=== PATIENT | female | born 1965 | race Caucasian/White ===

== ENCOUNTER 2017-02-10 10:10 | Inpatient (IN) | payer MEDICARE, MEDICAID ==
[~2017-02-10] VITALS: Ht 165.1 cm; Wt 63.5 kg
[2017-02-10] MEDS ORDERED: DOCUSATE SODIU100 MG ORAL (10:31)
[2017-02-10] MEDS ORDERED: IBUPROFEN600 MG ORAL (10:31)
[2017-02-10] MEDS ORDERED: RESTORIL15 MG ORAL (10:31)
[2017-02-10] MEDS ORDERED: ATIVAN1 MG ORAL (10:31)
[2017-02-10] MEDS ORDERED: PROTONIX40 MG ORAL (10:31)
[2017-02-10] MEDS ORDERED: ABILIFY10 MG ORAL (10:31)
[2017-02-10] MEDS ORDERED: SEROQUEL100 MG ORAL (10:31)
[2017-02-10] MEDS ORDERED: PROPRANOLOL HCL10 MG ORAL (10:31)
[2017-02-10] MEDS ORDERED: DEPAKOTE ER500 MG ORAL (10:31)
--- NOTE | 2017-02-10 10:42 | Emergency Room Report ---
History of Present Illness General Chief Complaint: Abnormal Labs Source: Medical Record, EMS Present Illness HPI 51YOF sent by PMD from [facility] For "abnormal labs," elevated ammonia level. Patient non-contributory to HPI No other family members present All info from paperwork from [facility] PMHx: Bipolar, schizoaffective, HTN, COPD, OA, liver cirrhosis, normocytic anemia, GERD Ammonia level was 209 on 02/07 Allergies: Coded Allergies: PENICILLINS (Verified Allergy, Unknown, 02/10/17) Patient History Limited by: medical condition Past Medical History: other - see HPI Past Surgical History: unable to obtain Pertinent Family History: unable to obtain Now: No Immunizations: UTD Reviewed Nursing Documentation: PMH: Agreed, PSxH: Agreed Nursing Documentation-PMH Past Medical History: No History, Except For Hx Hypertension: Yes Hx COPD: Yes History Of Psychiatric Problem: Yes - schizophrenia Review of Systems All Other Systems: limited - unable to obtain d/t AMS Physical Exam Vital Signs Date Time Temp Pulse Resp B/P Pulse Ox O2 Delivery O2 Flow Rate FiO2 02/10/17 10:10 98.4 80 18 136/76 95 Nasal Cannula 4.0 Sp02 EP Interpretation: reviewed, normal General Appearance: normal inspection, well appearing, no apparent distress, non-toxic Head: normocephalic, atraumatic Eyes: bilateral eye EOMI, bilateral eye PERRL ENT: normal ENT inspection, hearing grossly normal, normal voice Neck: normal inspection, full range of motion, supple, no bony tend Respiratory: normal inspection, lungs clear, normal breath sounds, no respiratory distress, no retraction, no wheezing Cardiovascular #1: regular rate, rhythm, no edema Gastrointestinal: normal inspection, normal bowel sounds, non tender, soft, no guarding, no hernia Musculoskeletal: normal inspection, back normal, normal range of motion, Yana' s Sign negative Neurologic: normal inspection, alert, responsive, director learning and development III-XII nml as tested, motor strength/tone normal, speech normal Psychiatric: normal inspection, judgement/insight normal, mood/affect normal Skin: normal inspection, normal color, no rash Medical Decision Making Diagnostic Impression: Primary Impression: Encephalopathy Additional Impressions: Liver cirrhosis Qualified Codes: K74.60 - Unspecified cirrhosis of liver Altered mental state Qualified Codes: R41.82 - Altered mental status, unspecified UTI (urinary tract infection) Qualified Codes: N30.01 - Acute cystitis with hematuria ER Course AMS - Multifactorial causes - Ammonia level downtrending from 209 from at outside facility. Known liver cirrhosis. Lactulose given in ED - UA grossly infected - Abx given to treat infection.. Urine Cx pending. No SIRS or obvious sepsis. H&H stable. No leuks. CXR does not show PNA. Endorsed to Dr Busch for tele admission at 1201pm. EKG Diagnostic Results Rate: normal ST Segments: other - ST depressions in 2, 3, AVF, V5-6 ASA given to the pt in ED: No Rhythm Strip Diag. Results EP Interpretation: yes Rate: 84 Rhythm: NSR, no PVC's, no ectopy Chest X-Ray Diagnostic Results EP Interpretation: Yes Findings: no consolidation, no effusion, no pneumothorax, no acute cardiopulmonary disease Number of Views: 1 Last Vital Signs Date Time Temp Pulse Resp B/P Pulse Ox O2 Delivery O2 Flow Rate FiO2 02/10/17 10:10 98.4 80 18 136/76 95 Nasal Cannula 4.0 Status: improved Disposition: ADMITTED INPATIENT Condition: Serious PAU MOSLEY M.D. February 10, 2017 10:42
[2017-02-10 11:21] LABS: BASOPHILS % (AUTO) 0.5 % (0.0-2.0); EOSINOPHILS % (AUTO) 1.6 % (0.0-3.0); LYMPHOCYTES % (AUTO) 16.9 % (20.0-45.0); MEAN CORPUSCULAR HEMOGLOBIN 32.2 PG (27.0-31.0); MEAN CORPUSCULAR HGB CONC 32.6 G/DL (32.0-36.0); MEAN CORPUSCULAR VOLUME 99 FL (80-99); MEAN PLATELET VOLUME 6.6 FL (6.5-10.1); MONOCYTES % (AUTO) 7.6 % (1.0-10.0); NEUTROPHILS % (AUTO) 73.4 % (45.0-75.0); PLATELET COUNT 131 K/UL (150-450); RED BLOOD COUNT 4.03 M/UL (4.20-5.40); WHITE BLOOD COUNT 5.8 K/UL (4.8-10.8)
--- NOTE | 2017-02-10 11:24 | Diagnostic Imaging Report ---
Indication: Chest pain Technique: Single portable AP view of the chest. Findings: Comparison: None. Aortic arch mildly calcified. The bones and extra pulmonary soft tissues, remainder of the cardiomediastinal silhouette, pulmonary vasculature and parenchyma, and pleural surfaces are unremarkable. IMPRESSION: Aortosclerosis Otherwise negative portable AP chest.
[2017-02-10 11:25] LABS: APPEARANCE,URINE SLIGHTLY CLOUDY; KETONES,URINE NEGATIVE (NEGATIVE); LEUKOCYTE ESTERASE ,URINE 2+ (NEGATIVE); NITRITE,URINE POSITIVE (NEGATIVE); PH,URINE 6 (4.5-8.0); PROTEIN,URINE 2+ (NEGATIVE); UROBILINOGEN,URINE 8 MG/DL (0.0-1.0)
[2017-02-10 11:42] LABS: TROPONIN I < 0.30 ng/mL (<=0.30)
[2017-02-10 11:48] LABS: BACTERIA,URINE MODERATE /HPF; RBC,URINE TNTC /HPF (0 - 2); SQUAMOUS EPITHELIAL CELL,UR MODERATE /LPF (NONE/OCC); WBC,URINE 15-20 /HPF (0 - 2)
[2017-02-10 11:53] LABS: ICTOTEST NEGATIVE
[2017-02-10 11:54] VITALS: BP 128/79
[2017-02-10] MEDS ORDERED: Lactulose 20gm/30ml UDC ORAL ONE (12:00)
[2017-02-10] MEDS ORDERED: cefTRIAXone 1 GM in NS 55 ML IVPB ONE (12:00)
[2017-02-10 12:08] LABS: ALBUMIN/GLOBULIN RATIO 0.2 (1.0-2.7); CALCIUM 8.6 mg/dL (8.6-10.2); CREATININE 1.4 mg/dL (0.5-0.9); GLOMERULAR FILTRATION RATE 39.3 mL/min (>60); TOTAL PROTEIN 8.5 g/dL (6.6-8.7)
[2017-02-10] MEDS ORDERED: LORazepam Inj 2mg/ml 1ml IV PRN (12:30)
[2017-02-10] MEDS ORDERED: Mylanta II UD 30ml ORAL PRN (12:30)
[2017-02-10 12:31] LABS: POTASSIUM 4.4 mEQ/L (3.4-4.9)
--- NOTE | 2017-02-10 12:51 | Neurology Progress Note ---
Objective Physical Exam Last Vital Signs Date Time Temp Pulse Resp B/P Pulse Ox O2 Delivery O2 Flow Rate FiO2 02/10/17 11:54 84 18 128/79 94 Nasal Cannula 2.0 02/10/17 10:10 98.4 Laboratory Tests Test 02/10/17 10:55 02/10/17 11:10 White Blood Count 5.8 K/UL (4.8-10.8) Red Blood Count 4.03 M/UL (4.20-5.40) L Hemoglobin 13.0 G/DL (12.0-16.0) Hematocrit 39.7 % (37.0-47.0) Mean Corpuscular Volume 99 FL (80-99) Mean Corpuscular Hemoglobin 32.2 PG (27.0-31.0) H Mean Corpuscular Hemoglobin Concent 32.6 G/DL (32.0-36.0) Red Cell Distribution Width 16.0 % (11.6-14.8) H Platelet Count 131 K/UL (150-450) L Mean Platelet Volume 6.6 FL (6.5-10.1) Neutrophils (%) (Auto) 73.4 % (45.0-75.0) Lymphocytes (%) (Auto) 16.9 % (20.0-45.0) L Monocytes (%) (Auto) 7.6 % (1.0-10.0) Eosinophils (%) (Auto) 1.6 % (0.0-3.0) Basophils (%) (Auto) 0.5 % (0.0-2.0) Sodium Level 144 mEQ/L (135-145) Potassium Level 4.4 mEQ/L (3.4-4.9) Chloride Level 107 mEQ/L (98-107) Carbon Dioxide Level 18 mEQ/L (20-30) L Anion Gap 19 (5-15) H Blood Urea Nitrogen 49 mg/dL (7-23) H Creatinine 1.4 mg/dL (0.5-0.9) H Estimat Glomerular Filtration Rate 39.3 mL/min (>60) Glucose Level 255 mg/dL (74-106) H Calcium Level 8.6 mg/dL (8.6-10.2) Total Bilirubin 2.0 mg/dL (0.0-1.2) H Direct Bilirubin Pending Aspartate Amino Transf (AST/SGOT) 42 U/L (5-40) H Alanine Aminotransferase (ALT/SGPT) 17 U/L (3-33) Alkaline Phosphatase 150 U/L (35-104) H Ammonia 107 umol/L (11-51) H Troponin I < 0.30 ng/mL (<=0.30) Total Protein 8.5 g/dL (6.6-8.7) Albumin 1.8 g/dL (3.5-5.2) L Globulin 6.7 g/dL Albumin/Globulin Ratio 0.2 (1.0-2.7) L Lipase 12 U/L (< 60) Urine Color Brown Urine Appearance Slightly cloudy Urine pH 6 (4.5-8.0) Urine Specific [place] 1.020 (1.005-1.035) Urine Protein 2+ (NEGATIVE) H Urine Glucose (UA) Negative (NEGATIVE) Urine Ketones Negative (NEGATIVE) Urine Occult Blood 5+ (NEGATIVE) H Urine Nitrite Positive (NEGATIVE) H Urine Bilirubin 1+ (NEGATIVE) H Urine Ictotest Negative Urine Urobilinogen 8 MG/DL (0.0-1.0) H Urine Leukocyte Esterase 2+ (NEGATIVE) H Urine RBC Tntc /HPF (0 - 2) H Urine WBC 15-20 /HPF (0 - 2) H Urine Squamous Epithelial Cells Moderate /LPF (NONE/OCC) H Urine Bacteria Moderate /HPF (NONE) H Impression/Recommendations Problems: (1) Encephalopathy, multifactorial, hepatic/septic/renal (2) Liver cirrhosis (3) UTI (urinary tract infection) Status: unchanged Recommendations #[id number] JOHN PACHECO February 10, 2017 12:51
[2017-02-10 12:54] VITALS: BP 131/72
[2017-02-10 13:43] LABS: BILIRUBIN,DIRECT 0.7 mg/dL (0.1-0.3)
[2017-02-10] MEDS: Morphine Sulfate 2mg/ml Inj IVP PRN (14:32)
--- NOTE | 2017-02-10 14:49 | Infectious Diseases Prog Note ---
Assessment/Plan Problems: (1) UTI (urinary tract infection) Assessment & Plan: will send urine for culture , continue cefepime empirically for now (2) Encephalopathy, multifactorial, hepatic/septic/renal Assessment & Plan: with elevated ammonia level, continue lactulose, and antibiotics for UTI, neurology is consulted (3) Liver cirrhosis Assessment & Plan: continue supportive care, avoid hepatotoxic meds, consult GI Subjective Allergies: Coded Allergies: PENICILLINS (Verified Allergy, Unknown, 02/10/17) Objective Vital Signs Last 24 Hour Vital Signs Date Time Temp Pulse Resp B/P Pulse Ox O2 Delivery O2 Flow Rate FiO2 02/10/17 13:06 84 18 131/72 95 Nasal Cannula 2.0 02/10/17 12:54 84 18 131/72 95 Nasal Cannula 2.0 02/10/17 11:54 84 18 128/79 94 Nasal Cannula 2.0 02/10/17 10:10 98.4 80 18 136/76 95 Nasal Cannula 4.0 Height (Feet): 5 Height (Inches): 6.00 Weight (Pounds): 130 Laboratory Tests Test 02/10/17 10:55 02/10/17 11:10 White Blood Count 5.8 K/UL (4.8-10.8) Red Blood Count 4.03 M/UL (4.20-5.40) L Hemoglobin 13.0 G/DL (12.0-16.0) Hematocrit 39.7 % (37.0-47.0) Mean Corpuscular Volume 99 FL (80-99) Mean Corpuscular Hemoglobin 32.2 PG (27.0-31.0) H Mean Corpuscular Hemoglobin Concent 32.6 G/DL (32.0-36.0) Red Cell Distribution Width 16.0 % (11.6-14.8) H Platelet Count 131 K/UL (150-450) L Mean Platelet Volume 6.6 FL (6.5-10.1) Neutrophils (%) (Auto) 73.4 % (45.0-75.0) Lymphocytes (%) (Auto) 16.9 % (20.0-45.0) L Monocytes (%) (Auto) 7.6 % (1.0-10.0) Eosinophils (%) (Auto) 1.6 % (0.0-3.0) Basophils (%) (Auto) 0.5 % (0.0-2.0) Sodium Level 144 mEQ/L (135-145) Potassium Level 4.4 mEQ/L (3.4-4.9) Chloride Level 107 mEQ/L (98-107) Carbon Dioxide Level 18 mEQ/L (20-30) L Anion Gap 19 (5-15) H Blood Urea Nitrogen 49 mg/dL (7-23) H Creatinine 1.4 mg/dL (0.5-0.9) H Estimat Glomerular Filtration Rate 39.3 mL/min (>60) Glucose Level 255 mg/dL (74-106) H Calcium Level 8.6 mg/dL (8.6-10.2) Total Bilirubin 2.0 mg/dL (0.0-1.2) H Direct Bilirubin 0.7 mg/dL (0.1-0.3) H Aspartate Amino Transf (AST/SGOT) 42 U/L (5-40) H Alanine Aminotransferase (ALT/SGPT) 17 U/L (3-33) Alkaline Phosphatase 150 U/L (35-104) H Ammonia 107 umol/L (11-51) H Troponin I < 0.30 ng/mL (<=0.30) Total Protein 8.5 g/dL (6.6-8.7) Albumin 1.8 g/dL (3.5-5.2) L Globulin 6.7 g/dL Albumin/Globulin Ratio 0.2 (1.0-2.7) L Lipase 12 U/L (< 60) Urine Color Brown Urine Appearance Slightly cloudy Urine pH 6 (4.5-8.0) Urine Specific [place] 1.020 (1.005-1.035) Urine Protein 2+ (NEGATIVE) H Urine Glucose (UA) Negative (NEGATIVE) Urine Ketones Negative (NEGATIVE) Urine Occult Blood 5+ (NEGATIVE) H Urine Nitrite Positive (NEGATIVE) H Urine Bilirubin 1+ (NEGATIVE) H Urine Ictotest Negative Urine Urobilinogen 8 MG/DL (0.0-1.0) H Urine Leukocyte Esterase 2+ (NEGATIVE) H Urine RBC Tntc /HPF (0 - 2) H Urine WBC 15-20 /HPF (0 - 2) H Urine Squamous Epithelial Cells Moderate /LPF (NONE/OCC) H Urine Bacteria Moderate /HPF (NONE) H Current Medications Medications (Trade) Dose Ordered Sig/Gill Route PRN Reason Start Time Stop Time Status Last Admin Dose Admin Acetaminophen (Tylenol) 650 mg Q4H PRN ORAL T>100.5 02/10/17 12:30 03/12/17 12:29 Al Hydroxide/Mg Hydroxide (Mylanta II) 30 ml Q6H PRN ORAL dyspepsia 02/10/17 12:30 03/12/17 12:29 Cefepime HCl/ Dextrose (Maxipime/D5W) 55 ml @ 110 mls/hr Q24H IV 02/10/17 15:00 02/17/17 14:59 Dextrose (Dextrose 50%) STAT PRN IV Hypoglycemia 02/10/17 12:30 03/12/17 12:29 Lactulose 30 gm 30 gm EVERY 6 HOURS ORAL 02/10/17 18:00 03/12/17 17:59 Lorazepam (Ativan 2mg/ml 1ml) 0.5 mg Q4H PRN IV For Anxiety 02/10/17 12:30 02/17/17 12:29 Morphine Sulfate (Morphine Sulfate) 2 mg Q4H PRN IVP PAIN 4-10 02/10/17 12:30 02/17/17 12:29 02/10/17 14:32 Ondansetron HCl (Zofran) 4 mg Q6H PRN IVP Nausea & Vomiting 02/10/17 12:30 03/12/17 12:29 Polyethylene Glycol (Miralax) 17 gm HSPRN PRN ORAL Constipation 02/10/17 21:00 03/12/17 20:59 Zolpidem Tartrate (Ambien) 5 mg HSPRN PRN ORAL Insomnia 02/10/17 21:00 03/12/17 20:59 Pura Klein M.D. February 10, 2017 14:49
[2017-02-10 15:28] VITALS: BP 122/74
--- NOTE | 2017-02-10 15:37 | GI Initial Consult Note ---
History of Present Illness General Date patient seen: February 10, 2017 Time patient seen: 15:35 Reason for Hospitalization: Abnormal Labs Referring physician: TERE GILES Reason for Consultation: HEPATIC ENCEPHALOPATHY Present Illness HPI 51YOF sent by PMD from [facility] For "abnormal labs," elevated ammonia level. Patient non-contributory to HPI No other family members present All info from paperwork from [facility] Ammonia level was 209 on 02/07 Home Meds Reported Medications Temazepam* (RESTORIL*) 15 Mg Capsule, 15 MG ORAL BEDTIME Y for Insomnia, CAP 02/10/17 Lorazepam* (ATIVAN*) 1 Mg Tablet, 1 MG ORAL EVERY 4 HOURS, TAB 02/10/17 Divalproex Sodium* (DEPAKOTE ER*) 500 Mg Tab.er.24h, 500 MG ORAL EVERY 12 HOURS , TAB 02/10/17 Quetiapine Fumarate* (SEROQUEL*) 100 Mg Tablet, 100 MG ORAL QHS, TAB 02/10/17 Aripiprazole* (ABILIFY*) 10 Mg Tablet, 10 MG ORAL DAILY, TAB 02/10/17 Docusate Sodium* (DOCUSATE SODIUM*) 100 Mg Capsule, 100 MG ORAL TWICE A DAY, CAP 02/10/17 Ibuprofen* (MOTRIN*) 600 Mg Tablet, 600 MG ORAL Q8H Y for For Pain, #30 TAB 0 Refills 02/10/17 Propranolol Hcl* (INDERAL*) 10 Mg Tablet, 10 MG ORAL BID, #90 TAB 0 Refills 02/10/17 Pantoprazole* (PROTONIX*) 40 Mg Tablet.dr, 40 MG ORAL ACBREAKFAST, TAB 02/10/17 Med list reviewed/reconciled: Yes Allergies: Coded Allergies: PENICILLINS (Verified Allergy, Unknown, 02/10/17) Patient History History Provided By: Medical Record PMH Narrative PMHx: Bipolar, schizoaffective, HTN, COPD, OA, liver cirrhosis, normocytic anemia, GERD Limited by: medical condition Past Medical History: other - see HPI Past Surgical History: unable to obtain Pertinent Family History: unable to obtain Now: No Immunizations: UTD Reviewed Nursing Documentation: PMH: Agreed, PSxH: Agreed Nursing Documentation-PMH Past Medical History: No History, Except For Hx Hypertension: Yes Hx COPD: Yes History Of Psychiatric Problem: Yes - schizophrenia Social History: Denies: alcohol use, drug use, other, smoking Review of Systems All Other Systems: limited Physical Exam Vital Signs Date Time Temp Pulse Resp B/P Pulse Ox O2 Delivery O2 Flow Rate FiO2 02/10/17 10:10 98.4 80 18 136/76 95 Nasal Cannula 4.0 Sp02 EP Interpretation: reviewed Labs Laboratory Tests Test 02/10/17 10:55 02/10/17 11:10 White Blood Count 5.8 K/UL (4.8-10.8) Red Blood Count 4.03 M/UL (4.20-5.40) L Hemoglobin 13.0 G/DL (12.0-16.0) Hematocrit 39.7 % (37.0-47.0) Mean Corpuscular Volume 99 FL (80-99) Mean Corpuscular Hemoglobin 32.2 PG (27.0-31.0) H Mean Corpuscular Hemoglobin Concent 32.6 G/DL (32.0-36.0) Red Cell Distribution Width 16.0 % (11.6-14.8) H Platelet Count 131 K/UL (150-450) L Mean Platelet Volume 6.6 FL (6.5-10.1) Neutrophils (%) (Auto) 73.4 % (45.0-75.0) Lymphocytes (%) (Auto) 16.9 % (20.0-45.0) L Monocytes (%) (Auto) 7.6 % (1.0-10.0) Eosinophils (%) (Auto) 1.6 % (0.0-3.0) Basophils (%) (Auto) 0.5 % (0.0-2.0) Sodium Level 144 mEQ/L (135-145) Potassium Level 4.4 mEQ/L (3.4-4.9) Chloride Level 107 mEQ/L (98-107) Carbon Dioxide Level 18 mEQ/L (20-30) L Anion Gap 19 (5-15) H Blood Urea Nitrogen 49 mg/dL (7-23) H Creatinine 1.4 mg/dL (0.5-0.9) H Estimat Glomerular Filtration Rate 39.3 mL/min (>60) Glucose Level 255 mg/dL (74-106) H Calcium Level 8.6 mg/dL (8.6-10.2) Total Bilirubin 2.0 mg/dL (0.0-1.2) H Direct Bilirubin 0.7 mg/dL (0.1-0.3) H Aspartate Amino Transf (AST/SGOT) 42 U/L (5-40) H Alanine Aminotransferase (ALT/SGPT) 17 U/L (3-33) Alkaline Phosphatase 150 U/L (35-104) H Ammonia 107 umol/L (11-51) H Troponin I < 0.30 ng/mL (<=0.30) Total Protein 8.5 g/dL (6.6-8.7) Albumin 1.8 g/dL (3.5-5.2) L Globulin 6.7 g/dL Albumin/Globulin Ratio 0.2 (1.0-2.7) L Lipase 12 U/L (< 60) Urine Color Brown Urine Appearance Slightly cloudy Urine pH 6 (4.5-8.0) Urine Specific [place] 1.020 (1.005-1.035) Urine Protein 2+ (NEGATIVE) H Urine Glucose (UA) Negative (NEGATIVE) Urine Ketones Negative (NEGATIVE) Urine Occult Blood 5+ (NEGATIVE) H Urine Nitrite Positive (NEGATIVE) H Urine Bilirubin 1+ (NEGATIVE) H Urine Ictotest Negative Urine Urobilinogen 8 MG/DL (0.0-1.0) H Urine Leukocyte Esterase 2+ (NEGATIVE) H Urine RBC Tntc /HPF (0 - 2) H Urine WBC 15-20 /HPF (0 - 2) H Urine Squamous Epithelial Cells Moderate /LPF (NONE/OCC) H Urine Bacteria Moderate /HPF (NONE) H General Appearance: no apparent distress, lethargic Head: normocephalic EENT: normal ENT inspection Neck: supple Respiratory: normal breath sounds, no respiratory distress Cardiovascular: normal rate Gastrointestinal: soft Rectal: deferred Neurologic: alert Skin: normal inspection, normal color, no rash Lymphatic: normal inspection, no adenopathy Current Medications Current Medications Medications (Trade) Dose Ordered Sig/Gill Route PRN Reason Start Time Stop Time Status Last Admin Dose Admin Acetaminophen (Tylenol) 650 mg Q4H PRN ORAL T>100.5 02/10/17 12:30 03/12/17 12:29 Al Hydroxide/Mg Hydroxide (Mylanta II) 30 ml Q6H PRN ORAL dyspepsia 02/10/17 12:30 03/12/17 12:29 Cefepime HCl/ Dextrose (Maxipime/D5W) 55 ml @ 110 mls/hr Q24H IV 02/10/17 15:00 02/17/17 14:59 Dextrose (Dextrose 50%) STAT PRN IV Hypoglycemia 02/10/17 12:30 03/12/17 12:29 Lactulose 30 gm 30 gm EVERY 6 HOURS ORAL 02/10/17 18:00 03/12/17 17:59 Lorazepam (Ativan 2mg/ml 1ml) 0.5 mg Q4H PRN IV For Anxiety 02/10/17 12:30 02/17/17 12:29 Morphine Sulfate (Morphine Sulfate) 2 mg Q4H PRN IVP PAIN 4-10 02/10/17 12:30 02/17/17 12:29 02/10/17 14:32 Ondansetron HCl (Zofran) 4 mg Q6H PRN IVP Nausea & Vomiting 02/10/17 12:30 03/12/17 12:29 Polyethylene Glycol (Miralax) 17 gm HSPRN PRN ORAL Constipation 02/10/17 21:00 03/12/17 20:59 Zolpidem Tartrate (Ambien) 5 mg HSPRN PRN ORAL Insomnia 02/10/17 21:00 03/12/17 20:59 GI: Plan Problems: (1) Altered mental state (2) Encephalopathy, multifactorial, hepatic/septic/renal (3) Encephalopathy (4) Liver cirrhosis (5) Severe malnutrition Plan elevated ammonia >> cont lactulose + Xifaxan ordered hepatitis panel ppi low sodium diet repeat ammonia levels monitor LFTs fu labs outpatient EGD/colonoscopy Discussed with Dr. Gil. Thank you for referring this patient, we will follow. Diamond Smith N.P. February 10, 2017 15:37
[2017-02-10] MEDS: Cefepime HCl 1 GM in D5W 55 ML IV SCH (15:49)
[2017-02-10 17:53] LABS: CRP QUANT 6.4 mg/dL (< 0.5)
--- NOTE | 2017-02-10 18:06 | Consultation ---
History of Present Illness General Date patient seen: February 10, 2017 Chief Complaint: Abnormal Labs Referring physician: TERE GILES Reason for Consultation: HEPATIC ENCEPHALOPATHY Present Illness HPI 51 year old female with hx of end-stage liver disease, psychiatric disorder, senior care resident brought in by ambulance with CC of JUAN, her amonia level was 200 in the senior care. Pt is somnolent and encephalopathic and can't give any history. Allergies: Coded Allergies: PENICILLINS (Verified Allergy, Unknown, 02/10/17) Medication History Scheduled Aripiprazole* (Abilify*), 10 MG ORAL DAILY, (Reported) Divalproex Sodium* (Depakote Er*), 500 MG ORAL EVERY 12 HOURS, (Reported) Docusate Sodium* (Docusate Sodium*), 100 MG ORAL TWICE A DAY, (Reported) Lorazepam* (Ativan*), 1 MG ORAL EVERY 4 HOURS, (Reported) Pantoprazole* (Protonix*), 40 MG ORAL ACBREAKFAST, (Reported) Propranolol Hcl* (Inderal*), 10 MG ORAL BID, (Reported) Quetiapine Fumarate* (Seroquel*), 100 MG ORAL QHS, (Reported) Scheduled PRN Ibuprofen* (Motrin*), 600 MG ORAL Q8H PRN for For Pain, (Reported) Temazepam* (Restoril*), 15 MG ORAL BEDTIME PRN for Insomnia, (Reported) Patient History Healthcare decision maker Resuscitation status Full Code Advanced Directive on File Past Medical/Surgical History Past Medical/Surgical History: (1) Psychiatric disorder (2) Liver cirrhosis Review of Systems All Other Systems: negative except mentioned in HPI Physical Exam Lines, tubes and drains: peripheral HEENT: normocephalic, atraumatic Neck: non-tender, normal alignment Respiratory/Chest: chest wall non-tender, lungs clear Cardiovascular/Chest: normal peripheral pulses, normal rate, regular rhythm Abdomen: normal bowel sounds Genitourinary/Rectal: normal genital exam Last 24 Hour Vital Signs Date Time Temp Pulse Resp B/P Pulse Ox O2 Delivery O2 Flow Rate FiO2 02/10/17 15:28 97.2 86 18 122/74 95 Room Air 02/10/17 13:06 84 18 131/72 95 Nasal Cannula 2.0 02/10/17 12:54 84 18 131/72 95 Nasal Cannula 2.0 02/10/17 11:54 84 18 128/79 94 Nasal Cannula 2.0 02/10/17 10:10 98.4 80 18 136/76 95 Nasal Cannula 4.0 Laboratory Tests Test 02/10/17 10:55 02/10/17 11:10 02/10/17 17:00 White Blood Count 5.8 K/UL (4.8-10.8) Red Blood Count 4.03 M/UL (4.20-5.40) L Hemoglobin 13.0 G/DL (12.0-16.0) Hematocrit 39.7 % (37.0-47.0) Mean Corpuscular Volume 99 FL (80-99) Mean Corpuscular Hemoglobin 32.2 PG (27.0-31.0) H Mean Corpuscular Hemoglobin Concent 32.6 G/DL (32.0-36.0) Red Cell Distribution Width 16.0 % (11.6-14.8) H Platelet Count 131 K/UL (150-450) L Mean Platelet Volume 6.6 FL (6.5-10.1) Neutrophils (%) (Auto) 73.4 % (45.0-75.0) Lymphocytes (%) (Auto) 16.9 % (20.0-45.0) L Monocytes (%) (Auto) 7.6 % (1.0-10.0) Eosinophils (%) (Auto) 1.6 % (0.0-3.0) Basophils (%) (Auto) 0.5 % (0.0-2.0) Sodium Level 144 mEQ/L (135-145) Potassium Level 4.4 mEQ/L (3.4-4.9) Chloride Level 107 mEQ/L (98-107) Carbon Dioxide Level 18 mEQ/L (20-30) L Anion Gap 19 (5-15) H Blood Urea Nitrogen 49 mg/dL (7-23) H Creatinine 1.4 mg/dL (0.5-0.9) H Estimat Glomerular Filtration Rate 39.3 mL/min (>60) Glucose Level 255 mg/dL (74-106) H Calcium Level 8.6 mg/dL (8.6-10.2) Total Bilirubin 2.0 mg/dL (0.0-1.2) H Direct Bilirubin 0.7 mg/dL (0.1-0.3) H Aspartate Amino Transf (AST/SGOT) 42 U/L (5-40) H Alanine Aminotransferase (ALT/SGPT) 17 U/L (3-33) Alkaline Phosphatase 150 U/L (35-104) H Ammonia 107 umol/L (11-51) H Troponin I < 0.30 ng/mL (<=0.30) Total Protein 8.5 g/dL (6.6-8.7) Albumin 1.8 g/dL (3.5-5.2) L Globulin 6.7 g/dL Albumin/Globulin Ratio 0.2 (1.0-2.7) L Lipase 12 U/L (< 60) Urine Color Brown Urine Appearance Slightly cloudy Urine pH 6 (4.5-8.0) Urine Specific [place] 1.020 (1.005-1.035) Urine Protein 2+ (NEGATIVE) H Urine Glucose (UA) Negative (NEGATIVE) Urine Ketones Negative (NEGATIVE) Urine Occult Blood 5+ (NEGATIVE) H Urine Nitrite Positive (NEGATIVE) H Urine Bilirubin 1+ (NEGATIVE) H Urine Ictotest Negative Urine Urobilinogen 8 MG/DL (0.0-1.0) H Urine Leukocyte Esterase 2+ (NEGATIVE) H Urine RBC Tntc /HPF (0 - 2) H Urine WBC 15-20 /HPF (0 - 2) H Urine Squamous Epithelial Cells Moderate /LPF (NONE/OCC) H Urine Bacteria Moderate /HPF (NONE) H Erythrocyte Sedimentation Rate Pending C-Reactive Protein, Quantitative 6.4 mg/dL (< 0.5) H Vitamin B12 Level Pending Height (Feet): 5 Height (Inches): 6.00 Weight (Pounds): 130 Medications Current Medications Medications (Trade) Dose Ordered Sig/Gill Route PRN Reason Start Time Stop Time Status Last Admin Dose Admin Acetaminophen (Tylenol) 650 mg Q4H PRN ORAL T>100.5 02/10/17 12:30 03/12/17 12:29 Al Hydroxide/Mg Hydroxide (Mylanta II) 30 ml Q6H PRN ORAL dyspepsia 02/10/17 12:30 03/12/17 12:29 Aripiprazole (Abilify) 10 mg DAILY ORAL 02/11/17 09:00 03/13/17 08:59 Cefepime HCl/ Dextrose (Maxipime/D5W) 55 ml @ 110 mls/hr Q24H IV 02/10/17 15:00 02/17/17 14:59 02/10/17 15:49 Dextrose (Dextrose 50%) STAT PRN IV Hypoglycemia 02/10/17 12:30 03/12/17 12:29 Divalproex Sodium (Depakote ER) 500 mg EVERY 12 HOURS ORAL 02/10/17 21:00 03/12/17 20:59 Docusate Sodium (Colace) 100 mg BID ORAL 02/10/17 18:00 03/12/17 17:59 Famotidine (Pepcid I.v.) 20 mg Q24H IVP 02/10/17 21:00 03/12/17 20:59 Ibuprofen (Motrin) 600 mg Q8H PRN ORAL For Pain 02/10/17 16:30 03/12/17 16:29 Lactulose 30 gm 30 gm EVERY 6 HOURS ORAL 02/10/17 18:00 03/12/17 17:59 Lorazepam (Ativan 2mg/ml 1ml) 0.5 mg Q4H PRN IV For Anxiety 02/10/17 12:30 02/17/17 12:29 Morphine Sulfate (Morphine Sulfate) 2 mg Q4H PRN IVP PAIN 4-10 02/10/17 12:30 02/17/17 12:29 02/10/17 14:32 Ondansetron HCl (Zofran) 4 mg Q6H PRN IVP Nausea & Vomiting 02/10/17 12:30 03/12/17 12:29 Pantoprazole (Protonix) 40 mg BEFORE BREAKFAST ORAL 02/11/17 06:30 03/13/17 06:29 Polyethylene Glycol (Miralax) 17 gm HSPRN PRN ORAL Constipation 02/10/17 21:00 03/12/17 20:59 Propranolol HCl (Inderal) 10 mg BID ORAL 02/10/17 18:00 03/12/17 17:59 Quetiapine Fumarate (SEROquel) 100 mg QHS ORAL 02/10/17 21:00 03/12/17 20:59 Rifaximin (Xifaxan) 550 mg EVERY 12 HOURS ORAL 02/10/17 21:00 02/17/17 20:59 Temazepam (Restoril) 15 mg HSPRN PRN ORAL Insomnia 02/10/17 16:30 02/17/17 16:29 Zolpidem Tartrate (Ambien) 5 mg HSPRN PRN ORAL Insomnia 02/10/17 21:00 03/12/17 20:59 Assessment/Plan Problem List: (1) Encephalopathy ICD Codes: G93.40 - Encephalopathy, unspecified SNOMED: 95416713, [id number] (2) Liver cirrhosis ICD Codes: K74.60 - Unspecified cirrhosis of liver SNOMED: [id number] Qualifiers: Qualified Codes: K74.60 - Unspecified cirrhosis of liver (3) UTI (urinary tract infection) ICD Codes: N39.0 - Urinary tract infection, site not specified SNOMED: 81162414 Qualifiers: Qualified Codes: N30.01 - Acute cystitis with hematuria (4) Encephalopathy, multifactorial, hepatic/septic/renal (5) Psychiatric disorder ICD Codes: F99 - Mental disorder, not otherwise specified SNOMED: 52421875, [id number] Assessment/Plan lactulose repeat ammonia [facility] psychiatric evaluation dvt prophylaxis MANFRED YING February 10, 2017 18:06
[2017-02-10] MEDS: Lactulose 20gm/30ml UDC ORAL SCH (18:26)
[2017-02-10] MEDS: Docusate 100mg cap ORAL SCH (18:27)
[2017-02-10] MEDS: Propranolol 10mg tab ORAL SCH (18:28)
[2017-02-10] MEDS: Rifaximin 550mg tab ORAL SCH (20:17)
[2017-02-10] MEDS: Famotidine 20 MG/ 2ML VIAL IVP SCH (20:19)
[2017-02-10] MEDS: Depakote ER 500mg tab ORAL SCH (20:20)
--- NOTE | 2017-02-10 20:28 | Consultation ---
DATE OF CONSULTATION: 02/10/2017 NEUROLOGICAL CONSULTATION CONSULTING PHYSICIAN: Tereso Domingo M.D. REQUESTING PHYSICIAN: Adolfo Busch D.O. LOCATION: Emergency room. HISTORY OF PRESENT ILLNESS: This is a 51-year-old female, resident of a nursing facility, who was brought to this hospital, as she developed progressive generalized weakness, changes in mental status, and found abnormal laboratory work with the ammonia level of 200. Hence, the patient was brought to this hospital. Vital signs remained stable. Blood pressure 136/74 and temperature 98.4 degrees. Her initial laboratory studies included unremarkable CBC except platelets 131,000. Chemistry panel, BUN of 49, creatinine 1.4, blood sugar 255, elevated AST 42, total bilirubin 2.1, alkaline phosphatase 150, ammonia down to 107, and albumin level 1.8. Urinalysis with 15 to 20 WBCs, RBC too numerous to count, and leukocyte esterase of 2+. Chest x-ray negative. No evidence of pneumonia. Since admission till present, there are no paroxysmal events. The patient is described as being restless and nonverbal. PAST MEDICAL HISTORY: The patient is unable provide with any information. This was obtained from medical records, apparently x-ray of the right knee obtained on 02/08/2017 revealed no gross evidence of displaced fracture or dislocation. There was a possible small knee joint effusion. Her diagnosis on admission included hypertension, chronic obstructive pulmonary disease, osteoarthritis right knee, liver cirrhosis with thrombocytopenia, hepatic encephalopathy, status post right breast mastectomy, chronic anemia, history of cellulitis of the right lower extremity, and schizoaffective disorder, bipolar type. MEDICATIONS: Treatment prior to admission included Seroquel 100 mg at bedtime, Depakote 500 mg b.i.d., Ativan q.4 as needed, and Restoril at bedtime. ALLERGIES: Penicillin. SOCIAL HISTORY: She is a resident of nursing facility. Incomplete information. FAMILY HISTORY: Unavailable. REVIEW OF SYSTEMS: Unable to obtain due to the patient's status. PHYSICAL EXAMINATION: GENERAL: The patient is a well-developed, somewhat cachectic, who is lying in bed naked, shouting, screaming, moaning, and eyes are closed. She is noncommunicating. VITAL SIGNS: Her vital signs now remain stable. She is afebrile. HEENT: Normocephalic. There is no evidence of trauma. Eyes, ears, and throat are clear. She is edentulous. NECK: Supple. No meningeal signs. MUSCULOSKELETAL EXAMINATION: There is a swelling in the right knee area with acute pain with slight touch to the right knee and with any attempt to flex her leg. Peripheral pulses 1+ symmetric. MENTAL STATUS: The patient is nonverbal. She does not follow commands. She remained with eyes open, moaning, and groaning. CRANIAL NERVE II: Pupils 2 mm responding to light and accommodation. Extraocular movements full range. CRANIAL NERVE V: Normal corneal responses. No facial asymmetry. CRANIAL NERVE VIII: Grossly normal hearing. CRANIAL NERVES IX THROUGH XII: Tongue is in midline. Symmetric palate elevation. MOTOR EXAMINATION: Able to lift arms against the gravity. No pronation drift. Right leg is somewhat flat. Able to move left lower extremity against the gravity. Deep tendon reflexes depressed bilaterally. Plantar response is mute. No pathological responses. SENSORY EXAMINATION: Withdrawing to pin stimulation in all limbs. IMPRESSION: 1. This is a 51-year-old female with multiple medical issues, now presenting with severe encephalopathy multifactorial including underlying urinary tract infection/sepsis, hepatic failure, and renal failure. No evidence of acute stroke, transient ischemic attack, or seizures noted. 2. Chronic psychiatric disorder exacerbation. 3. Right knee arthritis? Septic. 4. Rule out deep venous thrombosis. 5. Chronic obstructive pulmonary disease. 6. Breast cancer status post mastectomy. 7. Liver cirrhosis with leukopenia and coagulopathy. RECOMMENDATIONS: 1. Start intravenous fluids and antibiotics. Recheck urine culture and blood culture and sensitivity. 2. Continue with lactulose. 3. Baseline CT of the brain without contrast. 4. Hold Depakote given abnormal liver function. 5. Continue with antipsychotic treatment as per Psychiatry (Seroquel/Abilify). 6. Recheck B12, folate, thyroid function, vitamin D levels, and lipid panel. Thank you for allowing me to see this interesting patient in neurological consultation. Tereso Domingo M.D. DR: AARON JOB#: [id number] CC:
[2017-02-10 20:32] VITALS: BP 138/88
--- NOTE | 2017-02-10 20:59 | Consultation ---
DATE OF CONSULTATION: 02/10/2017 INFECTIOUS DISEASE CONSULTATION CONSULTING PHYSICIAN: Pura Kelin M.D. REQUESTING PHYSICIAN: Adolfo Busch D.O. REASON FOR CONSULTATION: Urinary tract infection, recommendation for antibiotics. HISTORY OF PRESENT ILLNESS: The patient is a 51-year-old female with past medical history of schizophrenia with bipolar disorder, COPD, liver cirrhosis, and GERD who was [facility] from jail facility for elevated ammonia level around 209 with altered mental status. The patient was sent to the emergency room at [facility] where she was altered and her ammonia level was found to be elevated. Her urinalysis showed evidence of urine infection. I was consulted by the primary provider for antibiotic recommendations. As of note, the patient is a poor historian, nonverbal, cannot provide any history at this point. History was mainly obtained from the medical record. PAST MEDICAL HISTORY: Significant for hypertension, COPD, schizophrenia, chronic liver cirrhosis, GERD, and anemia. FAMILY HISTORY: Unable to obtain. SOCIAL HISTORY: She is a jail facility resident. No recent drugs, tobacco, or alcohol. ALLERGIES: She is allergic to penicillin. MEDICATIONS: She is currently on cefepime. For list of medications, please refer to MAR. LABORATORY DATA: White count 5.8, hemoglobin is 13, and platelet count of 131,000. BUN is 39 and creatinine is 1.4. AST of 42 and ALT of 17. Urinalysis showed positive nitrite, +2 leukocyte esterase, WBC 15 to 20, and moderate amount of bacteria. IMAGING: Chest x-ray showed no acute pathology. PHYSICAL EXAMINATION: VITAL SIGNS: Temperature 98.4, pulse 84, respirations 18, blood pressure 131/72, and O2 saturation 95% on 2 liter nasal cannula. GENERAL: A middle aged female, lying in bed, alert, nonverbal, does not follow commands, not in acute distress. HEENT: Normocephalic and atraumatic. Pupils are reactive to light. Moist oral mucosa. No exudate. NECK: Supple. No lymphadenopathy. CARDIOVASCULAR: Regular rate and rhythm. No murmur. LUNGS: Clear bilaterally. Diminished breathing sounds at the bases. ABDOMEN: Soft. Distended with ascites. No organomegaly. EXTREMITIES: Edema. No cyanosis. ASSESSMENT AND PLAN: 1. Urinary tract infection. We will send urine culture. Continue cefepime empiric treatment for now until culture is obtained. 2. Encephalopathy, multifactorial, hepatic or possibly due to urinary tract infection. Continue lactulose to drop her ammonia level and antibiotics for her urine infection. Neurology is consulted. Avoid dehydration. 3. Liver cirrhosis, chronic. Continue supportive care. Avoid hepatotoxic medicine. Consult GI. 4. Schizophrenia with bipolar disorder. Continue psychiatric medications since she is mentally awake and stable. Thank you for the consult. Pura Klein M.D. DR: SHANNEN JOB#: [id number] CC: YULIANA
[2017-02-10] MEDS ORDERED: Miralax 17gm pkt ORAL PRN (21:00)
[2017-02-10] MEDS ORDERED: Zolpidem 5mg tab ORAL PRN (21:00)
--- NOTE | 2017-02-10 22:40 | Nephrology Progress Note ---
Objective Objective Last 24 Hour Vital Signs Date Time Temp Pulse Resp B/P Pulse Ox O2 Delivery O2 Flow Rate FiO2 02/10/17 20:32 98.8 91 20 138/88 98 Nasal Cannula 2.0 02/10/17 18:28 90 127/73 02/10/17 16:00 86 02/10/17 15:28 97.2 86 18 122/74 95 Room Air 02/10/17 13:06 84 18 131/72 95 Nasal Cannula 2.0 02/10/17 12:54 84 18 131/72 95 Nasal Cannula 2.0 02/10/17 11:54 84 18 128/79 94 Nasal Cannula 2.0 02/10/17 10:10 98.4 80 18 136/76 95 Nasal Cannula 4.0 Laboratory Tests 02/10/17 10:55: White Blood Count 5.8, Red Blood Count 4.03L, Hemoglobin 13.0, Hematocrit 39.7, Mean Corpuscular Volume 99, Mean Corpuscular Hemoglobin 32.2H, Mean Corpuscular Hemoglobin Concent 32.6, Red Cell Distribution Width 16.0H, Platelet Count 131L , Mean Platelet Volume 6.6, Neutrophils (%) (Auto) 73.4, Lymphocytes (%) (Auto) 16.9L, Monocytes (%) (Auto) 7.6, Eosinophils (%) (Auto) 1.6, Basophils (%) (Auto ) 0.5, Sodium Level 144, Potassium Level 4.4, Chloride Level 107, Carbon Dioxide Level 18L, Anion Gap 19H, Blood Urea Nitrogen 49H, Creatinine 1.4H, Estimat Glomerular Filtration Rate 39.3, Glucose Level 255H, Calcium Level 8.6, Total Bilirubin 2.0H, Direct Bilirubin 0.7H, Aspartate Amino Transf (AST/SGOT) 42H, Alanine Aminotransferase (ALT/SGPT) 17, Alkaline Phosphatase 150H, Ammonia 107H, Troponin I < 0.30, Total Protein 8.5, Albumin 1.8L, Globulin 6.7, Albumin/ Globulin Ratio 0.2L, Lipase 12 02/10/17 11:10: Urine Color Brown, Urine Appearance Slightly cloudy, Urine pH 6, Urine Specific [place] 1.020, Urine Protein 2+H, Urine Glucose (UA) Negative, Urine Ketones Negative, Urine Occult Blood 5+H, Urine Nitrite PositiveH, Urine Bilirubin 1+H, Urine Ictotest Negative, Urine Urobilinogen 8H, Urine Leukocyte Esterase 2+H, Urine RBC TntcH, Urine WBC 15-20H, Urine Squamous Epithelial Cells ModerateH, Urine Bacteria ModerateH 02/10/17 17:00: Erythrocyte Sedimentation Rate 114H, C-Reactive Protein, Quantitative 6.4H, Vitamin B12 Level 1791H Height (Feet): 5 Height (Inches): 6.00 Weight (Pounds): 130 PATRICK ENRIQUEZ February 10, 2017 22:40
--- NOTE | 2017-02-10 22:58 | History and Physical Report ---
DATE OF ADMISSION: 02/10/2017 TIME SEEN: At 2 p.m. ATTENDING PHYSICIAN: Adolfo Busch D.O. CONSULTANTS: 1. Gualberto Mcgovern M.D. 2. Angelito Moreno M.D. 3. Garth iGl M.D. 4. Tereso Domingo M.D. 5. Pura Klein M.D. CHIEF COMPLAINT: Weakness, confusion, hepatic encephalopathy, and liver cirrhosis. BRIEF HISTORY: This is a 51-year-old female from skilled nursing presented with increasing confusion, lethargy, was found to have high level of ammonia. The patient was admitted through the ER to telemetry for further care. Currently O2 NC, confused, sleeping in bed, not talking much. PAST MEDICAL HISTORY: Include hepatic encephalopathy, liver cirrhosis, , and altered mental status. PAST SURGICAL HISTORY: Unknown. MEDICATIONS: MiraLax, Ambien, , cefepime, Tylenol, morphine, Zofran, Ativan, and Mylanta. ALLERGIES: Penicillin. SOCIAL HISTORY: Unknown. REVIEW OF SYSTEMS: Unavailable. PHYSICAL EXAMINATION: GENERAL: Lethargic in bed, O2 NC, sleeping, slight shortness of breath. VITAL SIGNS: Temperature is 98 degrees, pulse 84, respirations 18, and blood pressure 131/72. CARDIOVASCULAR: No murmur. LUNGS: Poor air exchange. ABDOMEN: Bowel sounds are positive. Nontender and nondistended. EXTREMITIES: No cyanosis, clubbing, or edema. NEUROLOGIC: The patient is flaccid in bed, not answering questions. LABORATORY DATA: Labs at this time show platelets 131,000 otherwise CBC is normal. Bicarbonate 18, BUN and creatinine is 49 and 1.4, and glucose 255. Ammonia 107. Albumin 1.8. Urinalysis show 2+ leukocyte esterase, 5+ occult blood, 1+ bilirubin, 2+ protein. ASSESSMENT: 1. Hepatic encephalopathy. 2. Liver cirrhosis. 3. . 4. Diabetes. 5. Urinary tract infection. 6. Altered mental status. PLAN: 1. Continue premedications. 2. Antibiotics per Infectious Diseases. 3. OT/PT and dietary followup. 4. Lactulose as ordered. 5. Check CBC and BMP in the evening and ammonia in the morning. 6. We will continue to follow this patient. Dr. Mcgovern, Dr. Moreno, Dr. Gil, Dr. Domingo, Dr. Klein, and Dr. Royal to consult. We will continue to follow this patient medically. Adolfo Busch D.O. DR: Mayank JOB#: [id number] CC:
[2017-02-11 00:09] VITALS: BP 109/73
[2017-02-11] MEDS: Lactulose 20gm/30ml UDC ORAL SCH ×5 (00:40→20:40)
[2017-02-11 03:53] VITALS: BP 108/65
[2017-02-11 08:00] VITALS: BP 123/74
[2017-02-11 08:56] LABS: ABG ALLEN TEST POSITIVE; ABG PCO2 30.8 mmHg (35.0-45.0)
[2017-02-11] MEDS: Rifaximin 550mg tab ORAL SCH ×3 (09:00→20:41)
[2017-02-11] MEDS: Propranolol 10mg tab ORAL SCH ×2 (09:00→20:41)
[2017-02-11] MEDS: ARIPiprazole 10mg tab ORAL SCH ×2 (09:00→09:27)
[2017-02-11] MEDS: Depakote ER 500mg tab ORAL SCH ×3 (09:00→20:41)
[2017-02-11] MEDS: Docusate 100mg cap ORAL SCH (09:28)
[2017-02-11 09:56] LABS: BASOPHILS % (AUTO) 0.6 % (0.0-2.0); EOSINOPHILS % (AUTO) 3.1 % (0.0-3.0); LYMPHOCYTES % (AUTO) 17.4 % (20.0-45.0); MEAN CORPUSCULAR HEMOGLOBIN 32.8 PG (27.0-31.0); MEAN CORPUSCULAR HGB CONC 33.2 G/DL (32.0-36.0); MEAN CORPUSCULAR VOLUME 99 FL (80-99); MEAN PLATELET VOLUME 6.8 FL (6.5-10.1); MONOCYTES % (AUTO) 7.1 % (1.0-10.0); NEUTROPHILS % (AUTO) 71.8 % (45.0-75.0); PLATELET COUNT 124 K/UL (150-450); RED BLOOD COUNT 3.83 M/UL (4.20-5.40); RED CELL DISTRIBUTION WIDTH 15.9 % (11.6-14.8); WHITE BLOOD COUNT 6.6 K/UL (4.8-10.8)
--- NOTE | 2017-02-11 10:11 | GI Progress Note ---
Assessment/Plan Problems: (1) Severe malnutrition ICD Codes: E43 - Unspecified severe protein-calorie malnutrition SNOMED: 77956427 (2) Altered mental state ICD Codes: R41.82 - Altered mental status, unspecified SNOMED: 364026959, 571882522 Qualifiers: Qualified Codes: R41.82 - Altered mental status, unspecified (3) Encephalopathy, multifactorial, hepatic/septic/renal (4) Encephalopathy ICD Codes: G93.40 - Encephalopathy, unspecified SNOMED: 09855325, 490423183 (5) Liver cirrhosis ICD Codes: K74.60 - Unspecified cirrhosis of liver SNOMED: 79594112 Qualifiers: Qualified Codes: K74.60 - Unspecified cirrhosis of liver Status: unchanged Status Narrative Discussed with Dr. Gil. Assessment/Plan hep panel pending elevated ammonia >> cont lactulose + Xifaxan insert NGT, CXR confirmation NGTFs per dietary ppi monitor LFTs fu labs outpatient EGD/colonoscopy Subjective Subjective limited, lethargic Objective Last 24 Hour Vital Signs Date Time Temp Pulse Resp B/P Pulse Ox O2 Delivery O2 Flow Rate FiO2 02/11/17 09:00 65 108/65 02/11/17 08:00 96.6 80 18 123/74 96 Nasal Cannula 3.0 02/11/17 04:00 65 02/11/17 03:53 97.5 70 18 108/65 Room Air 70 02/11/17 00:09 98.2 75 19 109/73 93 Nasal Cannula 2.0 02/11/17 00:00 74 02/10/17 20:32 98.8 91 20 138/88 98 Nasal Cannula 2.0 02/10/17 18:28 90 127/73 02/10/17 16:00 86 02/10/17 15:28 97.2 86 18 122/74 95 Room Air 02/10/17 13:06 84 18 131/72 95 Nasal Cannula 2.0 02/10/17 12:54 84 18 131/72 95 Nasal Cannula 2.0 02/10/17 11:54 84 18 128/79 94 Nasal Cannula 2.0 02/10/17 10:10 98.4 80 18 136/76 95 Nasal Cannula 4.0 Intake and Output 02/10/17 02/11/17 19:00 07:00 Intake Total 170 ml Output Total 480 ml 500 ml Balance -310 ml -500 ml Intake Oral 60 ml IV Total 110 ml Output Urine Total 480 ml 500 ml Laboratory Tests Test 02/10/17 10:55 02/10/17 11:10 02/10/17 17:00 02/11/17 08:45 White Blood Count 5.8 K/UL (4.8-10.8) Red Blood Count 4.03 M/UL (4.20-5.40) L Hemoglobin 13.0 G/DL (12.0-16.0) Hematocrit 39.7 % (37.0-47.0) Mean Corpuscular Volume 99 FL (80-99) Mean Corpuscular Hemoglobin 32.2 PG (27.0-31.0) H Mean Corpuscular Hemoglobin Concent 32.6 G/DL (32.0-36.0) Red Cell Distribution Width 16.0 % (11.6-14.8) H Platelet Count 131 K/UL (150-450) L Mean Platelet Volume 6.6 FL (6.5-10.1) Neutrophils (%) (Auto) 73.4 % (45.0-75.0) Lymphocytes (%) (Auto) 16.9 % (20.0-45.0) L Monocytes (%) (Auto) 7.6 % (1.0-10.0) Eosinophils (%) (Auto) 1.6 % (0.0-3.0) Basophils (%) (Auto) 0.5 % (0.0-2.0) Sodium Level 144 mEQ/L (135-145) Potassium Level 4.4 mEQ/L (3.4-4.9) Chloride Level 107 mEQ/L (98-107) Carbon Dioxide Level 18 mEQ/L (20-30) L Anion Gap 19 (5-15) H Blood Urea Nitrogen 49 mg/dL (7-23) H Creatinine 1.4 mg/dL (0.5-0.9) H Estimat Glomerular Filtration Rate 39.3 mL/min (>60) Glucose Level 255 mg/dL (74-106) H Calcium Level 8.6 mg/dL (8.6-10.2) Total Bilirubin 2.0 mg/dL (0.0-1.2) H Direct Bilirubin 0.7 mg/dL (0.1-0.3) H Aspartate Amino Transf (AST/SGOT) 42 U/L (5-40) H Alanine Aminotransferase (ALT/SGPT) 17 U/L (3-33) Alkaline Phosphatase 150 U/L (35-104) H Ammonia 107 umol/L (11-51) H Troponin I < 0.30 ng/mL (<=0.30) Total Protein 8.5 g/dL (6.6-8.7) Albumin 1.8 g/dL (3.5-5.2) L Globulin 6.7 g/dL Albumin/Globulin Ratio 0.2 (1.0-2.7) L Lipase 12 U/L (< 60) Urine Color Brown Urine Appearance Slightly cloudy Urine pH 6 (4.5-8.0) Urine Specific [place] 1.020 (1.005-1.035) Urine Protein 2+ (NEGATIVE) H Urine Glucose (UA) Negative (NEGATIVE) Urine Ketones Negative (NEGATIVE) Urine Occult Blood 5+ (NEGATIVE) H Urine Nitrite Positive (NEGATIVE) H Urine Bilirubin 1+ (NEGATIVE) H Urine Ictotest Negative Urine Urobilinogen 8 MG/DL (0.0-1.0) H Urine Leukocyte Esterase 2+ (NEGATIVE) H Urine RBC Tntc /HPF (0 - 2) H Urine WBC 15-20 /HPF (0 - 2) H Urine Squamous Epithelial Cells Moderate /LPF (NONE/OCC) H Urine Bacteria Moderate /HPF (NONE) H Erythrocyte Sedimentation Rate 114 MM/HR (0-30) H C-Reactive Protein, Quantitative 6.4 mg/dL (< 0.5) H Vitamin B12 Level 1791 pg/mL (211-946) H Arterial Blood pH 7.460 (7.350-7.450) Arterial Blood Partial Pressure CO2 30.8 mmHg (35.0-45.0) L Arterial Blood Partial Pressure O2 79.5 mmHg (75.0-100.0) Arterial Blood HCO3 21.9 mmol/L (22.0-26.0) L Arterial Blood Oxygen Saturation 94.8 % (92.0-98.0) Arterial Blood Base Excess -1.0 Harley Test Positive Test 02/11/17 09:11 White Blood Count 6.6 K/UL (4.8-10.8) Red Blood Count 3.83 M/UL (4.20-5.40) L Hemoglobin 12.6 G/DL (12.0-16.0) Hematocrit 38.0 % (37.0-47.0) Mean Corpuscular Volume 99 FL (80-99) Mean Corpuscular Hemoglobin 32.8 PG (27.0-31.0) H Mean Corpuscular Hemoglobin Concent 33.2 G/DL (32.0-36.0) Red Cell Distribution Width 15.9 % (11.6-14.8) H Platelet Count 124 K/UL (150-450) L Mean Platelet Volume 6.8 FL (6.5-10.1) Neutrophils (%) (Auto) 71.8 % (45.0-75.0) Lymphocytes (%) (Auto) 17.4 % (20.0-45.0) L Monocytes (%) (Auto) 7.1 % (1.0-10.0) Eosinophils (%) (Auto) 3.1 % (0.0-3.0) H Basophils (%) (Auto) 0.6 % (0.0-2.0) Sodium Level Pending Potassium Level Pending Chloride Level Pending Carbon Dioxide Level Pending Blood Urea Nitrogen Pending Creatinine Pending Estimat Glomerular Filtration Rate Pending Glucose Level Pending Calcium Level Pending Total Bilirubin Pending Aspartate Amino Transf (AST/SGOT) Pending Alanine Aminotransferase (ALT/SGPT) Pending Alkaline Phosphatase Pending Ammonia Pending Total Protein Pending Albumin Pending Globulin Pending Triglycerides Level Pending Cholesterol Level Pending LDL Cholesterol Pending HDL Cholesterol Pending Cholesterol/HDL Ratio Pending Thyroid Stimulating Hormone (TSH) Pending Hepatitis A IgM Antibody Pending Hepatitis B Surface Antigen Pending Hepatitis B Core IgM Antibody Pending Hepatitis C Antibody Pending Height (Feet): 5 Height (Inches): 6.00 Weight (Pounds): 130 General Appearance: lethargic Cardiovascular: normal rate Respiratory/Chest: normal breath sounds, no respiratory distress Abdominal Exam: normal bowel sounds, non tender, soft Diamond Smith NMax February 11, 2017 10:11
--- NOTE | 2017-02-11 10:39 | Diagnostic Imaging Report ---
Indication: Chest Pain Comparison: 547 A single view chest radiograph was obtained. Findings: No definite infiltrate or pulmonary vascular congestion identified. The heart is normal in size. The aorta is mildly enlarged consistent with atherosclerotic vascular disease. The bones are osteopenic. Impression: No acute disease
[2017-02-11 10:48] LABS: ALBUMIN/GLOBULIN RATIO 0.2 (1.0-2.7); CALCIUM 8.8 mg/dL (8.6-10.2); CREATININE 1.5 mg/dL (0.5-0.9); GLOMERULAR FILTRATION RATE 36.4 mL/min (>60); POTASSIUM 4.6 mEQ/L (3.4-4.9); TOTAL PROTEIN 8.4 g/dL (6.6-8.7)
[2017-02-11 10:49] LABS: CHOLESTEROL/HDL RATIO 4.7 (3.3-4.4)
[2017-02-11 11:02] LABS: BILIRUBIN,DIRECT 0.6 mg/dL (0.1-0.3)
[2017-02-11 11:12] LABS: THYROID STIMULATING HORMONE 3.32 uIU/mL (0.300-4.500)
--- NOTE | 2017-02-11 11:28 | Diagnostic Imaging Report ---
APPROVED REPORT CPT Code: 31357 Present Symptoms Lower Extremity Pain: Bilateral BILATERAL: Imaging reveals a patent deep venous system bilaterally. There is no evidence of thrombus within the femoral, popliteal or tibial segments. The greater saphenous veins are also within normal limits. Doppler indicates normal spontaneous flow within these segments.
[2017-02-11] MEDS: Morphine Sulfate 2mg/ml Inj IVP PRN (11:30)
[2017-02-11 11:39] VITALS: BP 109/67
[2017-02-11] MEDS: Docusate 100mg/10ml Liq GT SCH ×2 (12:00→20:40)
--- NOTE | 2017-02-11 12:31 | Diagnostic Imaging Report ---
Indication: NG tube Comparison: None Single view of the abdomen obtained Partial images of the upper abdomen demonstrates a nasogastric tube in good position. The proximal port and tip are both in the stomach. Suspected gallstones in the right upper quadrant of the abdomen. Other calcifications slightly lower down right of midline are noted. These could be pancreatic in origin, suggestive of chronic calcific pancreatitis. Although these findings may be confirmed on CT. Impression: Nasogastric tube in good position
--- NOTE | 2017-02-11 13:12 | General Progress Note ---
Assessment/Plan Problem List: (1) Liver cirrhosis ICD Codes: K74.60 - Unspecified cirrhosis of liver SNOMED: 97616139 Qualifiers: Qualified Codes: K74.60 - Unspecified cirrhosis of liver (2) Encephalopathy ICD Codes: G93.40 - Encephalopathy, unspecified SNOMED: 23974015, 876411740 (3) UTI (urinary tract infection) ICD Codes: N39.0 - Urinary tract infection, site not specified SNOMED: 79657095 Qualifiers: Qualified Codes: N30.01 - Acute cystitis with hematuria (4) Encephalopathy, multifactorial, hepatic/septic/renal (5) Altered mental state ICD Codes: R41.82 - Altered mental status, unspecified SNOMED: 110665863, 028412722 Qualifiers: Qualified Codes: R41.82 - Altered mental status, unspecified (6) Severe malnutrition ICD Codes: E43 - Unspecified severe protein-calorie malnutrition SNOMED: 41091553 (7) Psychiatric disorder ICD Codes: F99 - Mental disorder, not otherwise specified SNOMED: 96189692, 067029755 Status: unchanged Assessment/Plan ot pt diet ivf psyc neuro gi tx cbc bmp am Subjective Constitutional: Reports: weakness Allergies: Coded Allergies: PENICILLINS (Verified Allergy, Unknown, 02/10/17) All Systems: reviewed and negative except above Subjective 02nc sleepy Objective Last 24 Hour Vital Signs Date Time Temp Pulse Resp B/P Pulse Ox O2 Delivery O2 Flow Rate FiO2 02/11/17 11:39 96.8 79 19 109/67 97 Nasal Cannula 3.0 02/11/17 09:00 65 108/65 02/11/17 08:00 96.6 80 18 123/74 96 Nasal Cannula 3.0 02/11/17 04:00 65 02/11/17 03:53 97.5 70 18 108/65 Room Air 70 02/11/17 00:09 98.2 75 19 109/73 93 Nasal Cannula 2.0 02/11/17 00:00 74 02/10/17 20:32 98.8 91 20 138/88 98 Nasal Cannula 2.0 02/10/17 18:28 90 127/73 02/10/17 16:00 86 02/10/17 15:28 97.2 86 18 122/74 95 Room Air Intake and Output 02/10/17 02/11/17 19:00 07:00 Intake Total 170 ml Output Total 480 ml 500 ml Balance -310 ml -500 ml Intake Oral 60 ml IV Total 110 ml Output Urine Total 480 ml 500 ml Laboratory Tests 02/10/17 17:00: Erythrocyte Sedimentation Rate 114H, C-Reactive Protein, Quantitative 6.4H, Vitamin B12 Level 1791H 02/11/17 08:45: Arterial Blood pH 7.460H, Arterial Blood Partial Pressure CO2 30.8L, Arterial Blood Partial Pressure O2 79.5, Arterial Blood HCO3 21.9L, Arterial Blood Oxygen Saturation 94.8, Arterial Blood Base Excess -1.0, Harley Test Positive 02/11/17 09:11: White Blood Count 6.6, Red Blood Count 3.83L, Hemoglobin 12.6, Hematocrit 38.0, Mean Corpuscular Volume 99, Mean Corpuscular Hemoglobin 32.8H, Mean Corpuscular Hemoglobin Concent 33.2, Red Cell Distribution Width 15.9H, Platelet Count 124L , Mean Platelet Volume 6.8, Neutrophils (%) (Auto) 71.8, Lymphocytes (%) (Auto) 17.4L, Monocytes (%) (Auto) 7.1, Eosinophils (%) (Auto) 3.1H, Basophils (%) ( Auto) 0.6, Sodium Level 148H, Potassium Level 4.6, Chloride Level 114H, Carbon Dioxide Level 19L, Anion Gap 15, Blood Urea Nitrogen 54H, Creatinine 1.5H, Estimat Glomerular Filtration Rate 36.4, Glucose Level 111#H, Calcium Level 8.8 , Total Bilirubin 2.0H, Direct Bilirubin 0.6H, Aspartate Amino Transf (AST/SGOT ) 41H, Alanine Aminotransferase (ALT/SGPT) 16, Alkaline Phosphatase 143H, Ammonia 55H, Total Protein 8.4, Albumin 1.5L, Globulin 6.9, Albumin/Globulin Ratio 0.2L, Triglycerides Level 54, Cholesterol Level 80, LDL Cholesterol 52L, HDL Cholesterol 17, Cholesterol/HDL Ratio 4.7H, Thyroid Stimulating Hormone (TSH ) 3.320, Hepatitis A IgM Antibody [Pending], Hepatitis B Surface Antigen [ Pending], Hepatitis B Core IgM Antibody [Pending], Hepatitis C Antibody [Pending ] Height (Feet): 5 Height (Inches): 6.00 Weight (Pounds): 130 General Appearance: lethargic, confused EENT: normal ENT inspection Neck: normal alignment Cardiovascular: normal peripheral pulses, normal rate, regular rhythm Respiratory/Chest: chest wall non-tender, lungs clear, normal breath sounds Abdomen: normal bowel sounds, non tender, soft Extremities: normal inspection Edema: no edema noted Arm (L), no edema noted Arm (R), no edema noted Leg (L), no edema noted Leg (R), no edema noted Pedal (L), no edema noted Pedal (R), no edema noted Generalized Neurologic: motor weakness Skin: normal pigmentation, warm/dry TERE GILES February 11, 2017 13:12
--- NOTE | 2017-02-11 13:29 | Pulmonology Progress Note ---
Assessment/Plan Problems: (1) Encephalopathy (2) Liver cirrhosis (3) UTI (urinary tract infection) (4) Encephalopathy, multifactorial, hepatic/septic/renal (5) Psychiatric disorder Assessment/Plan still agitated Haldol prn continue IV fluids f/u electrolytes keep in teli. Subjective ROS Limited/Unobtainable: No Constitutional: Reports: no symptoms HEENT: Repors: no symptoms Respiratory: Reports: no symptoms Allergies: Coded Allergies: PENICILLINS (Verified Allergy, Unknown, 02/10/17) Objective Last 24 Hour Vital Signs Date Time Temp Pulse Resp B/P Pulse Ox O2 Delivery O2 Flow Rate FiO2 02/11/17 11:39 96.8 79 19 109/67 97 Nasal Cannula 3.0 02/11/17 09:00 65 108/65 02/11/17 08:00 96.6 80 18 123/74 96 Nasal Cannula 3.0 02/11/17 04:00 65 02/11/17 03:53 97.5 70 18 108/65 Room Air 70 02/11/17 00:09 98.2 75 19 109/73 93 Nasal Cannula 2.0 02/11/17 00:00 74 02/10/17 20:32 98.8 91 20 138/88 98 Nasal Cannula 2.0 02/10/17 18:28 90 127/73 02/10/17 16:00 86 02/10/17 15:28 97.2 86 18 122/74 95 Room Air Intake and Output 02/10/17 02/11/17 19:00 07:00 Intake Total 170 ml Output Total 480 ml 500 ml Balance -310 ml -500 ml Intake Oral 60 ml IV Total 110 ml Output Urine Total 480 ml 500 ml General Appearance: WD/WN HEENT: normocephalic, atraumatic Respiratory/Chest: chest wall non-tender, lungs clear Breasts: no masses Cardiovascular: normal rate Abdomen: normal bowel sounds, no organomegaly Genitourinary: normal external genitalia Extremities: no clubbing Neurologic/Psychiatric: regional transfer liaison II-XII grossly normal Lymphatic: no neck adenopathy Microbiology Date/Time Source Procedure Growth Status 02/10/17 11:10 Urine,Clean Catch Urine Culture - Preliminary Resulted Laboratory Tests 02/10/17 17:00: Erythrocyte Sedimentation Rate 114H, C-Reactive Protein, Quantitative 6.4H, Vitamin B12 Level 1791H 02/11/17 08:45: Arterial Blood pH 7.460H, Arterial Blood Partial Pressure CO2 30.8L, Arterial Blood Partial Pressure O2 79.5, Arterial Blood HCO3 21.9L, Arterial Blood Oxygen Saturation 94.8, Arterial Blood Base Excess -1.0, Harley Test Positive 02/11/17 09:11: White Blood Count 6.6, Red Blood Count 3.83L, Hemoglobin 12.6, Hematocrit 38.0, Mean Corpuscular Volume 99, Mean Corpuscular Hemoglobin 32.8H, Mean Corpuscular Hemoglobin Concent 33.2, Red Cell Distribution Width 15.9H, Platelet Count 124L , Mean Platelet Volume 6.8, Neutrophils (%) (Auto) 71.8, Lymphocytes (%) (Auto) 17.4L, Monocytes (%) (Auto) 7.1, Eosinophils (%) (Auto) 3.1H, Basophils (%) ( Auto) 0.6, Sodium Level 148H, Potassium Level 4.6, Chloride Level 114H, Carbon Dioxide Level 19L, Anion Gap 15, Blood Urea Nitrogen 54H, Creatinine 1.5H, Estimat Glomerular Filtration Rate 36.4, Glucose Level 111#H, Calcium Level 8.8 , Total Bilirubin 2.0H, Direct Bilirubin 0.6H, Aspartate Amino Transf (AST/SGOT ) 41H, Alanine Aminotransferase (ALT/SGPT) 16, Alkaline Phosphatase 143H, Ammonia 55H, Total Protein 8.4, Albumin 1.5L, Globulin 6.9, Albumin/Globulin Ratio 0.2L, Triglycerides Level 54, Cholesterol Level 80, LDL Cholesterol 52L, HDL Cholesterol 17, Cholesterol/HDL Ratio 4.7H, Thyroid Stimulating Hormone (TSH ) 3.320, Hepatitis A IgM Antibody [Pending], Hepatitis B Surface Antigen [ Pending], Hepatitis B Core IgM Antibody [Pending], Hepatitis C Antibody [Pending ] Current Medications Medications (Trade) Dose Ordered Sig/Gill Route PRN Reason Start Time Stop Time Status Last Admin Dose Admin Acetaminophen (Tylenol) 650 mg Q4H PRN ORAL T>100.5 02/10/17 12:30 03/12/17 12:29 Al Hydroxide/Mg Hydroxide (Mylanta II) 30 ml Q6H PRN ORAL dyspepsia 02/10/17 12:30 03/12/17 12:29 Aripiprazole (Abilify) 10 mg DAILY ORAL 02/11/17 09:00 03/13/17 08:59 Cefepime HCl/ Dextrose (Maxipime/D5W) 55 ml @ 110 mls/hr Q24H IV 02/10/17 15:00 02/17/17 14:59 02/10/17 15:49 Dextrose (Dextrose 50%) STAT PRN IV Hypoglycemia 02/10/17 12:30 03/12/17 12:29 Divalproex Sodium (Depakote ER) 500 mg EVERY 12 HOURS ORAL 02/10/17 21:00 03/12/17 20:59 02/10/17 20:20 Docusate Sodium (Colace) 100 mg BID GT 02/11/17 12:00 03/13/17 11:59 Famotidine (Pepcid I.v.) 20 mg Q24H IVP 02/10/17 21:00 03/12/17 20:59 02/10/17 20:19 Haloperidol Lactate (Haldol) 5 mg Q4HR PRN IM Agitation 02/11/17 13:15 03/13/17 13:14 Ibuprofen (Motrin) 600 mg Q8H PRN ORAL For Pain 02/10/17 16:30 03/12/17 16:29 Lactulose 30 gm 30 gm EVERY 6 HOURS ORAL 02/10/17 18:00 03/12/17 17:59 02/11/17 09:27 Lansoprazole (Prevacid) 30 mg ACBREAKFAST ORAL 02/12/17 12:00 03/14/17 11:59 Lorazepam (Ativan 2mg/ml 1ml) 0.5 mg Q4H PRN IV For Anxiety 02/10/17 12:30 02/17/17 12:29 Morphine Sulfate (Morphine Sulfate) 2 mg Q4H PRN IVP PAIN 4-10 02/10/17 12:30 02/17/17 12:29 02/11/17 11:30 Ondansetron HCl (Zofran) 4 mg Q6H PRN IVP Nausea & Vomiting 02/10/17 12:30 03/12/17 12:29 Polyethylene Glycol (Miralax) 17 gm HSPRN PRN ORAL Constipation 02/10/17 21:00 03/12/17 20:59 Propranolol HCl (Inderal) 10 mg BID ORAL 02/10/17 18:00 03/12/17 17:59 02/10/17 18:28 Quetiapine Fumarate (SEROquel) 100 mg QHS ORAL 02/10/17 21:00 03/12/17 20:59 02/10/17 20:17 Rifaximin (Xifaxan) 550 mg EVERY 12 HOURS ORAL 02/10/17 21:00 02/17/17 20:59 02/10/17 20:17 Temazepam (Restoril) 15 mg HSPRN PRN ORAL Insomnia 02/10/17 16:30 02/17/17 16:29 Zolpidem Tartrate (Ambien) 5 mg HSPRN PRN ORAL Insomnia 02/10/17 21:00 03/12/17 20:59 MANFRED YING February 11, 2017 13:29
[2017-02-11] MEDS: Haloperidol 5mg/ml Inj IM PRN (13:37)
--- NOTE | 2017-02-11 14:49 | Infectious Diseases Prog Note ---
Assessment/Plan Problems: (1) UTI (urinary tract infection) Assessment & Plan: await urine culture , continue cefepime empirically for now (2) Encephalopathy, multifactorial, hepatic/septic/renal Assessment & Plan: with elevated ammonia level, continue lactulose, and antibiotics for UTI, neurology is consulted (3) Liver cirrhosis Assessment & Plan: continue supportive care, avoid hepatotoxic meds, consult GI (4) Altered mental state Assessment & Plan: with agitation and confusion, multifactorial , continue antibiotics, and lactulose.neurology is following Subjective ROS Limited/Unobtainable: Yes Allergies: Coded Allergies: PENICILLINS (Verified Allergy, Unknown, 02/10/17) Subjective she was screaming and agitated, pulled out her NGT, on restrain Objective Vital Signs Last 24 Hour Vital Signs Date Time Temp Pulse Resp B/P Pulse Ox O2 Delivery O2 Flow Rate FiO2 02/11/17 11:39 96.8 79 19 109/67 97 Nasal Cannula 3.0 02/11/17 09:00 65 108/65 02/11/17 08:00 96.6 80 18 123/74 96 Nasal Cannula 3.0 02/11/17 04:00 65 02/11/17 03:53 97.5 70 18 108/65 Room Air 70 02/11/17 00:09 98.2 75 19 109/73 93 Nasal Cannula 2.0 02/11/17 00:00 74 02/10/17 20:32 98.8 91 20 138/88 98 Nasal Cannula 2.0 02/10/17 18:28 90 127/73 02/10/17 16:00 86 02/10/17 15:28 97.2 86 18 122/74 95 Room Air Height (Feet): 5 Height (Inches): 6.00 Weight (Pounds): 130 General Appearance: WD/WN, other - agitated HEENT: normocephalic, atraumatic, anicteric, mucous membranes moist, other - fresh blood in her throat Respiratory/Chest: chest wall non-tender, lungs clear, normal breath sounds, no respiratory distress, no accessory muscle use Cardiovascular: normal peripheral pulses, normal rate, regular rhythm, no gallop/murmur, no JVD Abdomen: normal bowel sounds, soft, non tender, no organomegaly, non distended , no mass, no scars Extremities: no cyanosis, no clubbing Skin: no rash, no lesions Microbiology Date/Time Source Procedure Growth Status 02/10/17 11:10 Urine,Clean Catch Urine Culture - Preliminary Resulted Laboratory Tests Test 02/10/17 17:00 02/11/17 08:45 02/11/17 09:11 Erythrocyte Sedimentation Rate 114 MM/HR (0-30) H C-Reactive Protein, Quantitative 6.4 mg/dL (< 0.5) H Vitamin B12 Level 1791 pg/mL (211-946) H Arterial Blood pH 7.460 (7.350-7.450) Arterial Blood Partial Pressure CO2 30.8 mmHg (35.0-45.0) L Arterial Blood Partial Pressure O2 79.5 mmHg (75.0-100.0) Arterial Blood HCO3 21.9 mmol/L (22.0-26.0) L Arterial Blood Oxygen Saturation 94.8 % (92.0-98.0) Arterial Blood Base Excess -1.0 Harley Test Positive White Blood Count 6.6 K/UL (4.8-10.8) Red Blood Count 3.83 M/UL (4.20-5.40) L Hemoglobin 12.6 G/DL (12.0-16.0) Hematocrit 38.0 % (37.0-47.0) Mean Corpuscular Volume 99 FL (80-99) Mean Corpuscular Hemoglobin 32.8 PG (27.0-31.0) H Mean Corpuscular Hemoglobin Concent 33.2 G/DL (32.0-36.0) Red Cell Distribution Width 15.9 % (11.6-14.8) H Platelet Count 124 K/UL (150-450) L Mean Platelet Volume 6.8 FL (6.5-10.1) Neutrophils (%) (Auto) 71.8 % (45.0-75.0) Lymphocytes (%) (Auto) 17.4 % (20.0-45.0) L Monocytes (%) (Auto) 7.1 % (1.0-10.0) Eosinophils (%) (Auto) 3.1 % (0.0-3.0) H Basophils (%) (Auto) 0.6 % (0.0-2.0) Sodium Level 148 mEQ/L (135-145) H Potassium Level 4.6 mEQ/L (3.4-4.9) Chloride Level 114 mEQ/L (98-107) H Carbon Dioxide Level 19 mEQ/L (20-30) L Anion Gap 15 (5-15) Blood Urea Nitrogen 54 mg/dL (7-23) H Creatinine 1.5 mg/dL (0.5-0.9) H Estimat Glomerular Filtration Rate 36.4 mL/min (>60) Glucose Level 111 mg/dL (74-106) #H Calcium Level 8.8 mg/dL (8.6-10.2) Total Bilirubin 2.0 mg/dL (0.0-1.2) H Direct Bilirubin 0.6 mg/dL (0.1-0.3) H Aspartate Amino Transf (AST/SGOT) 41 U/L (5-40) H Alanine Aminotransferase (ALT/SGPT) 16 U/L (3-33) Alkaline Phosphatase 143 U/L (35-104) H Ammonia 55 umol/L (11-51) H Total Protein 8.4 g/dL (6.6-8.7) Albumin 1.5 g/dL (3.5-5.2) L Globulin 6.9 g/dL Albumin/Globulin Ratio 0.2 (1.0-2.7) L Triglycerides Level 54 mg/dL (< 150) Cholesterol Level 80 mg/dL (< 200) LDL Cholesterol 52 mg/dL (60-99) L HDL Cholesterol 17 mg/dL (> 60) Cholesterol/HDL Ratio 4.7 (3.3-4.4) H Thyroid Stimulating Hormone (TSH) 3.320 uIU/mL (0.300-4.500) Hepatitis A IgM Antibody Pending Hepatitis B Surface Antigen Pending Hepatitis B Core IgM Antibody Pending Hepatitis C Antibody Pending Current Medications Medications (Trade) Dose Ordered Sig/Gill Route PRN Reason Start Time Stop Time Status Last Admin Dose Admin Acetaminophen (Tylenol) 650 mg Q4H PRN ORAL T>100.5 02/10/17 12:30 03/12/17 12:29 Al Hydroxide/Mg Hydroxide (Mylanta II) 30 ml Q6H PRN ORAL dyspepsia 02/10/17 12:30 03/12/17 12:29 Aripiprazole (Abilify) 10 mg DAILY ORAL 02/11/17 09:00 03/13/17 08:59 Cefepime HCl/ Dextrose (Maxipime/D5W) 55 ml @ 110 mls/hr Q24H IV 02/10/17 15:00 02/17/17 14:59 02/10/17 15:49 Dextrose (Dextrose 50%) STAT PRN IV Hypoglycemia 02/10/17 12:30 03/12/17 12:29 Divalproex Sodium (Depakote ER) 500 mg EVERY 12 HOURS ORAL 02/10/17 21:00 03/12/17 20:59 02/10/17 20:20 Docusate Sodium (Colace) 100 mg BID GT 02/11/17 12:00 03/13/17 11:59 Famotidine (Pepcid I.v.) 20 mg Q24H IVP 02/10/17 21:00 03/12/17 20:59 02/10/17 20:19 Haloperidol Lactate (Haldol) 5 mg Q4HR PRN IM Agitation 02/11/17 13:15 03/13/17 13:14 02/11/17 13:37 Ibuprofen (Motrin) 600 mg Q8H PRN ORAL For Pain 02/10/17 16:30 03/12/17 16:29 Lactulose 30 gm 30 gm EVERY 6 HOURS ORAL 02/10/17 18:00 03/12/17 17:59 02/11/17 13:37 Lansoprazole (Prevacid) 30 mg ACBREAKFAST ORAL 02/12/17 12:00 03/14/17 11:59 Lorazepam (Ativan 2mg/ml 1ml) 0.5 mg Q4H PRN IV For Anxiety 02/10/17 12:30 02/17/17 12:29 Morphine Sulfate (Morphine Sulfate) 2 mg Q4H PRN IVP PAIN 4-10 02/10/17 12:30 02/17/17 12:29 02/11/17 11:30 Ondansetron HCl (Zofran) 4 mg Q6H PRN IVP Nausea & Vomiting 02/10/17 12:30 03/12/17 12:29 Polyethylene Glycol (Miralax) 17 gm HSPRN PRN ORAL Constipation 02/10/17 21:00 03/12/17 20:59 Propranolol HCl (Inderal) 10 mg BID ORAL 02/10/17 18:00 03/12/17 17:59 02/10/17 18:28 Quetiapine Fumarate (SEROquel) 100 mg QHS ORAL 02/10/17 21:00 03/12/17 20:59 02/10/17 20:17 Rifaximin (Xifaxan) 550 mg EVERY 12 HOURS ORAL 02/10/17 21:00 02/17/17 20:59 02/10/17 20:17 Temazepam (Restoril) 15 mg HSPRN PRN ORAL Insomnia 02/10/17 16:30 02/17/17 16:29 Zolpidem Tartrate (Ambien) 5 mg HSPRN PRN ORAL Insomnia 02/10/17 21:00 03/12/17 20:59 Pura Klein M.D. February 11, 2017 14:49
[2017-02-11] MEDS: Cefepime HCl 1 GM in D5W 55 ML IV SCH (15:23)
--- NOTE | 2017-02-11 15:51 | Nephrology Progress Note ---
Assessment/Plan Problem List: (1) SHERIE (acute kidney injury) (2) Liver cirrhosis (3) UTI (urinary tract infection) (4) Encephalopathy, multifactorial, hepatic/septic/renal (5) Altered mental state (6) Psychiatric disorder Plan Renal US - result pending Monitor BUN/cr Monitor I&O Monitor lytes Continue NGT Suction PRN Abx per ID AM labs Subjective ROS Limited/Unobtainable: Yes Subjective In bed, confused, yelling Objective Objective Last 24 Hour Vital Signs Date Time Temp Pulse Resp B/P Pulse Ox O2 Delivery O2 Flow Rate FiO2 02/11/17 11:39 96.8 79 19 109/67 97 Nasal Cannula 3.0 02/11/17 09:00 65 108/65 02/11/17 08:00 96.6 80 18 123/74 96 Nasal Cannula 3.0 02/11/17 04:00 65 02/11/17 03:53 97.5 70 18 108/65 Room Air 70 02/11/17 00:09 98.2 75 19 109/73 93 Nasal Cannula 2.0 02/11/17 00:00 74 02/10/17 20:32 98.8 91 20 138/88 98 Nasal Cannula 2.0 02/10/17 18:28 90 127/73 02/10/17 16:00 86 Intake and Output 02/10/17 02/11/17 19:00 07:00 Intake Total 170 ml Output Total 480 ml 500 ml Balance -310 ml -500 ml Intake Oral 60 ml IV Total 110 ml Output Urine Total 480 ml 500 ml Laboratory Tests 02/10/17 17:00: Erythrocyte Sedimentation Rate 114H, C-Reactive Protein, Quantitative 6.4H, Vitamin B12 Level 1791H 02/11/17 08:45: Arterial Blood pH 7.460H, Arterial Blood Partial Pressure CO2 30.8L, Arterial Blood Partial Pressure O2 79.5, Arterial Blood HCO3 21.9L, Arterial Blood Oxygen Saturation 94.8, Arterial Blood Base Excess -1.0, Harley Test Positive 02/11/17 09:11: White Blood Count 6.6, Red Blood Count 3.83L, Hemoglobin 12.6, Hematocrit 38.0, Mean Corpuscular Volume 99, Mean Corpuscular Hemoglobin 32.8H, Mean Corpuscular Hemoglobin Concent 33.2, Red Cell Distribution Width 15.9H, Platelet Count 124L , Mean Platelet Volume 6.8, Neutrophils (%) (Auto) 71.8, Lymphocytes (%) (Auto) 17.4L, Monocytes (%) (Auto) 7.1, Eosinophils (%) (Auto) 3.1H, Basophils (%) ( Auto) 0.6, Sodium Level 148H, Potassium Level 4.6, Chloride Level 114H, Carbon Dioxide Level 19L, Anion Gap 15, Blood Urea Nitrogen 54H, Creatinine 1.5H, Estimat Glomerular Filtration Rate 36.4, Glucose Level 111#H, Calcium Level 8.8 , Total Bilirubin 2.0H, Direct Bilirubin 0.6H, Aspartate Amino Transf (AST/SGOT ) 41H, Alanine Aminotransferase (ALT/SGPT) 16, Alkaline Phosphatase 143H, Ammonia 55H, Total Protein 8.4, Albumin 1.5L, Globulin 6.9, Albumin/Globulin Ratio 0.2L, Triglycerides Level 54, Cholesterol Level 80, LDL Cholesterol 52L, HDL Cholesterol 17, Cholesterol/HDL Ratio 4.7H, Thyroid Stimulating Hormone (TSH ) 3.320, Hepatitis A IgM Antibody [Pending], Hepatitis B Surface Antigen [ Pending], Hepatitis B Core IgM Antibody [Pending], Hepatitis C Antibody [Pending ] Height (Feet): 5 Height (Inches): 6.00 Weight (Pounds): 130 General Appearance: confused, agitated, combative EENT: normal ENT inspection Cardiovascular: regular rhythm, regularly irregular, no JVD Respiratory/Chest: normal breath sounds, no respiratory distress Abdomen: non tender Neurologic: disoriented Madeline Fischer N.P. February 11, 2017 15:51
[2017-02-11 16:00] VITALS: BP 133/81
[2017-02-11 20:30] VITALS: BP 130/77
[2017-02-11] MEDS: Famotidine 20 MG/ 2ML VIAL IVP SCH (20:48)
[2017-02-12 00:06] VITALS: BP 128/77
[2017-02-12] MEDS: Lactulose 20gm/30ml UDC ORAL SCH ×5 (00:09→23:47)
[2017-02-12] MEDS: Haloperidol 5mg/ml Inj IM PRN ×2 (01:50→18:29)
[2017-02-12 04:04] VITALS: BP 138/76
[2017-02-12 08:00] VITALS: BP 122/72
[2017-02-12 08:36] LABS: BASOPHILS % (AUTO) 0.8 % (0.0-2.0); EOSINOPHILS % (AUTO) 3.1 % (0.0-3.0); LYMPHOCYTES % (AUTO) 18.6 % (20.0-45.0); MEAN CORPUSCULAR HEMOGLOBIN 32.1 PG (27.0-31.0); MEAN CORPUSCULAR HGB CONC 32.2 G/DL (32.0-36.0); MEAN CORPUSCULAR VOLUME 100 FL (80-99); MEAN PLATELET VOLUME 6.2 FL (6.5-10.1); NEUTROPHILS % (AUTO) 68.5 % (45.0-75.0); PLATELET COUNT 111 K/UL (150-450); RED BLOOD COUNT 3.97 M/UL (4.20-5.40); RED CELL DISTRIBUTION WIDTH 16.1 % (11.6-14.8); WHITE BLOOD COUNT 5.4 K/UL (4.8-10.8)
--- NOTE | 2017-02-12 08:38 | General Progress Note ---
Assessment/Plan Problem List: (1) Liver cirrhosis ICD Codes: K74.60 - Unspecified cirrhosis of liver SNOMED: 09358653 Qualifiers: Qualified Codes: K74.60 - Unspecified cirrhosis of liver (2) Encephalopathy ICD Codes: G93.40 - Encephalopathy, unspecified SNOMED: 54816594, 984258585 (3) UTI (urinary tract infection) ICD Codes: N39.0 - Urinary tract infection, site not specified SNOMED: 57269962 Qualifiers: Qualified Codes: N30.01 - Acute cystitis with hematuria (4) Encephalopathy, multifactorial, hepatic/septic/renal (5) Altered mental state ICD Codes: R41.82 - Altered mental status, unspecified SNOMED: 222612174, 277749331 Qualifiers: Qualified Codes: R41.82 - Altered mental status, unspecified (6) Severe malnutrition ICD Codes: E43 - Unspecified severe protein-calorie malnutrition SNOMED: 85070587 (7) Psychiatric disorder ICD Codes: F99 - Mental disorder, not otherwise specified SNOMED: 01727290, 593178197 Status: stable, progressing, tolerating diet Assessment/Plan ot pt diet ivf psyc neuro gi tx cbc bmp am Subjective Constitutional: Reports: weakness Allergies: Coded Allergies: PENICILLINS (Verified Allergy, Unknown, 02/10/17) All Systems: reviewed and negative except above Subjective 02nc ng sleepy Objective Last 24 Hour Vital Signs Date Time Temp Pulse Resp B/P Pulse Ox O2 Delivery O2 Flow Rate FiO2 02/12/17 04:04 97.8 80 18 138/76 99 Room Air 02/12/17 04:00 70 02/12/17 00:06 98.3 83 18 128/77 94 Room Air 02/12/17 00:00 74 02/11/17 20:41 85 130/77 02/11/17 20:30 98.6 85 19 130/77 95 Room Air 02/11/17 20:00 77 02/11/17 16:00 95 02/11/17 16:00 97.0 94 20 133/81 92 Nasal Cannula 2.0 02/11/17 12:00 75 02/11/17 11:39 96.8 79 19 109/67 97 Nasal Cannula 3.0 02/11/17 09:00 65 108/65 Intake and Output 02/11/17 02/12/17 19:00 07:00 Output Total 425 ml 500 ml Balance -425 ml -500 ml Output Urine Total 425 ml 500 ml # Bowel Movements 1 1 Laboratory Tests 02/11/17 08:45: Arterial Blood pH 7.460H, Arterial Blood Partial Pressure CO2 30.8L, Arterial Blood Partial Pressure O2 79.5, Arterial Blood HCO3 21.9L, Arterial Blood Oxygen Saturation 94.8, Arterial Blood Base Excess -1.0, Harley Test Positive 02/11/17 09:11: White Blood Count 6.6, Red Blood Count 3.83L, Hemoglobin 12.6, Hematocrit 38.0, Mean Corpuscular Volume 99, Mean Corpuscular Hemoglobin 32.8H, Mean Corpuscular Hemoglobin Concent 33.2, Red Cell Distribution Width 15.9H, Platelet Count 124L , Mean Platelet Volume 6.8, Neutrophils (%) (Auto) 71.8, Lymphocytes (%) (Auto) 17.4L, Monocytes (%) (Auto) 7.1, Eosinophils (%) (Auto) 3.1H, Basophils (%) ( Auto) 0.6, Sodium Level 148H, Potassium Level 4.6, Chloride Level 114H, Carbon Dioxide Level 19L, Anion Gap 15, Blood Urea Nitrogen 54H, Creatinine 1.5H, Estimat Glomerular Filtration Rate 36.4, Glucose Level 111#H, Calcium Level 8.8 , Total Bilirubin 2.0H, Direct Bilirubin 0.6H, Aspartate Amino Transf (AST/SGOT ) 41H, Alanine Aminotransferase (ALT/SGPT) 16, Alkaline Phosphatase 143H, Ammonia 55H, Total Protein 8.4, Albumin 1.5L, Globulin 6.9, Albumin/Globulin Ratio 0.2L, Triglycerides Level 54, Cholesterol Level 80, LDL Cholesterol 52L, HDL Cholesterol 17, Cholesterol/HDL Ratio 4.7H, Thyroid Stimulating Hormone (TSH ) 3.320, Hepatitis A IgM Antibody Negative, Hepatitis B Surface Antigen Negative , Hepatitis B Core IgM Antibody Negative, Hepatitis C Antibody 0.3 02/12/17 08:00: White Blood Count [Pending], Red Blood Count [Pending], Hemoglobin [Pending], Hematocrit [Pending], Mean Corpuscular Volume [Pending], Mean Corpuscular Hemoglobin [Pending], Mean Corpuscular Hemoglobin Concent [Pending], Red Cell Distribution Width [Pending], Platelet Count [Pending], Mean Platelet Volume [ Pending], Neutrophils (%) (Auto) [Pending], Lymphocytes (%) (Auto) [Pending], Monocytes (%) (Auto) [Pending], Eosinophils (%) (Auto) [Pending], Basophils (%) (Auto) [Pending], Sodium Level [Pending], Potassium Level [Pending], Chloride Level [Pending], Carbon Dioxide Level [Pending], Blood Urea Nitrogen [Pending], Creatinine [Pending], Estimat Glomerular Filtration Rate [Pending], Glucose Level [Pending], Calcium Level [Pending], Total Bilirubin [Pending], Aspartate Amino Transf (AST/SGOT) [Pending], Alanine Aminotransferase (ALT/SGPT) [Pending] , Alkaline Phosphatase [Pending], Ammonia [Pending], Total Protein [Pending], Albumin [Pending], Globulin [Pending] Height (Feet): 5 Height (Inches): 6.00 Weight (Pounds): 130 General Appearance: lethargic, confused EENT: normal ENT inspection Neck: normal alignment Cardiovascular: normal peripheral pulses, normal rate, regular rhythm Respiratory/Chest: chest wall non-tender, lungs clear, normal breath sounds Abdomen: normal bowel sounds, non tender, soft Extremities: normal inspection Edema: no edema noted Arm (L), no edema noted Arm (R), no edema noted Leg (L), no edema noted Leg (R), no edema noted Pedal (L), no edema noted Pedal (R), no edema noted Generalized Neurologic: motor weakness Skin: normal pigmentation, warm/dry TERE GILES February 12, 2017 08:38
[2017-02-12 09:03] LABS: ALBUMIN/GLOBULIN RATIO 0.2 (1.0-2.7); CALCIUM 9.1 mg/dL (8.6-10.2); CREATININE 1.5 mg/dL (0.5-0.9); GLOMERULAR FILTRATION RATE 36.4 mL/min (>60); POTASSIUM 4.1 mEQ/L (3.4-4.9); TOTAL PROTEIN 8.6 g/dL (6.6-8.7)
[2017-02-12] MEDS: Propranolol 10mg tab ORAL SCH ×3 (09:39→23:15)
[2017-02-12] MEDS: ARIPiprazole 10mg tab ORAL SCH (09:39)
[2017-02-12] MEDS: Rifaximin 550mg tab ORAL SCH ×2 (09:39→20:46)
[2017-02-12 09:40] LABS: BILIRUBIN,DIRECT 0.9 mg/dL (0.1-0.3)
[2017-02-12] MEDS: Depakote ER 500mg tab ORAL SCH ×2 (09:44→23:15)
[2017-02-12] MEDS: Docusate 100mg/10ml Liq GT SCH ×2 (09:47→17:47)
--- NOTE | 2017-02-12 10:08 | Consultation ---
DATE OF CONSULTATION: 02/11/2017 PSYCHOTHERAPY CONSULTATION PROGRESS NOTE: TREATING ATTENDING: Adolfo Busch D.O. CONSULTING PHYSICIAN: Timbo Guadalupe M.D. HISTORY OF PRESENT ILLNESS: The patient is a 51-year-old female patient. The patient was admitted to the hospital for encephalopathy. She has been very confused, disorganized, anxious, irritable, and agitated. . The patient had a difficulty regulating her mood and affect. nursing facility. In the nursing facility, the patient is very confused, lethargic, and was found to have high level of ammonia, and brought to the hospital for stabilization of symptoms . This clinician provided the patient with reality orientation as the patient has been very confused, disorganized and altered in her mental status. The patient at this time does not . She does not appear to have suicidal or homicidal thoughts of ideation. She is disorganized and confused. PAST MEDICAL HISTORY: History of encephalopathy, liver cirrhosis, and altered mental status ALLERGIES: The patient is allergic to penicillin. SUBSTANCE ABUSE HISTORY: There is no indication of alcohol use, illicit substance use, or smoking cigarettes for this patient. SOCIAL HISTORY: The patient is a 51-year-old female. The patent lives in nursing facility. MENTAL STATUS EXAMINATION: The patient is alert and oriented to person. Mood is irritable . Affect is congruent. Thought process disorganized. Thought content confused. She has poor attention and concentration. Poor insight, judgment, and impulse control. DIAGNOSES: AXIS I Schizoaffective disorder bipolar type. AXIS II Deferred. AXIS III Per History and Physical. AXIS IV Problem with social environment. PLAN: Continue with medication management and behavioral management. This clinician has reviewed the patient's chart. Discussed the treatment with nursing staff. Timbo Guadalupe PsyD. DR: Sander JOB#: [id number] CC:
[2017-02-12] MEDS ORDERED: Morphine Sulfate 2mg/ml Inj IVP PRN ×2 (11:31→23:45)
--- NOTE | 2017-02-12 11:47 | Diagnostic Imaging Report ---
Indication: NG tube placement Comparison: 02/11/17 Single view of the abdomen obtained Nasogastric tube is in good position after advancing slightly. No change otherwise. Impression: NG tube in good position
[2017-02-12 12:00] VITALS: BP 120/71
[2017-02-12 12:44] LABS: INR 1.4 (0.9-1.1)
--- NOTE | 2017-02-12 12:52 | Diagnostic Imaging Report ---
Indication:Elevated Bun and Creatinine. Technique: Grayscale and duplex Doppler imaging of the kidneys performed. Comparison: None Findings: Kidneys are echogenic consistent with medical renal disease. Right kidney is 12 CM. Left kidney is 11 CM. There is no hydronephrosis. The bladder is unremarkable. Trace ascites is present. The spleen is incidentally noted and enlarged measuring 17 cm. Liver shows coarsened echotexture. Impression: Medical renal disease. Trace ascites Splenomegaly. Chronic liver disease suspected as well.
[2017-02-12] MEDS ORDERED: Vancomycin 1 GM in D5W 275 ML IVPB ONE (14:00)
--- NOTE | 2017-02-12 14:26 | Infectious Diseases Prog Note ---
Assessment/Plan Problems: (1) UTI (urinary tract infection) Assessment & Plan: urine culture grew staph aureus, will await sensitivity, start vancomycin dosed by pharmacy , and stop cefepime (2) Encephalopathy, multifactorial, hepatic/septic/renal Assessment & Plan: had elevated ammonia level, continue lactulose, and antibiotics for UTI, neurology is following (3) Liver cirrhosis Assessment & Plan: continue supportive care, avoid hepatotoxic meds, consult GI (4) Altered mental state Assessment & Plan: with agitation and confusion, multifactorial , continue antibiotics, and lactulose.neurology is following Subjective ROS Limited/Unobtainable: Yes Allergies: Coded Allergies: PENICILLINS (Verified Allergy, Unknown, 02/10/17) Subjective she was more quiet, and comfortable, had a new NGT placed , still on restrain . afebrile Objective Vital Signs Last 24 Hour Vital Signs Date Time Temp Pulse Resp B/P Pulse Ox O2 Delivery O2 Flow Rate FiO2 02/12/17 12:00 97.3 67 20 120/71 92 Nasal Cannula 3.0 02/12/17 09:39 74 122/72 02/12/17 08:00 97.7 74 18 122/72 98 Nasal Cannula 3.0 02/12/17 04:04 97.8 80 18 138/76 99 Room Air 02/12/17 04:00 70 02/12/17 00:06 98.3 83 18 128/77 94 Room Air 02/12/17 00:00 74 02/11/17 20:41 85 130/77 02/11/17 20:30 98.6 85 19 130/77 95 Room Air 02/11/17 20:00 77 02/11/17 16:00 95 02/11/17 16:00 97.0 94 20 133/81 92 Nasal Cannula 2.0 Height (Feet): 5 Height (Inches): 6.00 Weight (Pounds): 130 General Appearance: WD/WN, no acute distress HEENT: normocephalic, atraumatic, anicteric Respiratory/Chest: chest wall non-tender, lungs clear, normal breath sounds, no respiratory distress, no accessory muscle use Cardiovascular: normal peripheral pulses, normal rate, regular rhythm, no gallop/murmur Abdomen: normal bowel sounds, soft, non tender, no organomegaly, non distended , no mass Extremities: no cyanosis, no clubbing Skin: no rash, no lesions Microbiology Date/Time Source Procedure Growth Status 02/10/17 11:53 Nasal Nares MRSA Culture - Final NO METHICILLIN RESISTANT STAPH AUREUS... Complete 02/10/17 11:10 Urine,Clean Catch Urine Culture - Preliminary Staphylococcus Aureus Resulted 02/10/17 11:10 Rectal Mucosa VRE Culture - Final NO VANCOMYCIN RESISTANT ENTEROCOCCUS ... Complete Laboratory Tests Test 02/12/17 08:00 02/12/17 11:40 White Blood Count 5.4 K/UL (4.8-10.8) Red Blood Count 3.97 M/UL (4.20-5.40) L Hemoglobin 12.7 G/DL (12.0-16.0) Hematocrit 39.6 % (37.0-47.0) Mean Corpuscular Volume 100 FL (80-99) H Mean Corpuscular Hemoglobin 32.1 PG (27.0-31.0) H Mean Corpuscular Hemoglobin Concent 32.2 G/DL (32.0-36.0) Red Cell Distribution Width 16.1 % (11.6-14.8) H Platelet Count 111 K/UL (150-450) L Mean Platelet Volume 6.2 FL (6.5-10.1) L Neutrophils (%) (Auto) 68.5 % (45.0-75.0) Lymphocytes (%) (Auto) 18.6 % (20.0-45.0) L Monocytes (%) (Auto) 9.0 % (1.0-10.0) Eosinophils (%) (Auto) 3.1 % (0.0-3.0) H Basophils (%) (Auto) 0.8 % (0.0-2.0) Sodium Level 153 mEQ/L (135-145) H Potassium Level 4.1 mEQ/L (3.4-4.9) Chloride Level 117 mEQ/L (98-107) H Carbon Dioxide Level 21 mEQ/L (20-30) Anion Gap 15 (5-15) Blood Urea Nitrogen 62 mg/dL (7-23) H Creatinine 1.5 mg/dL (0.5-0.9) H Estimat Glomerular Filtration Rate 36.4 mL/min (>60) Glucose Level 131 mg/dL (74-106) H Calcium Level 9.1 mg/dL (8.6-10.2) Total Bilirubin 2.3 mg/dL (0.0-1.2) H Direct Bilirubin 0.9 mg/dL (0.1-0.3) H Aspartate Amino Transf (AST/SGOT) 39 U/L (5-40) Alanine Aminotransferase (ALT/SGPT) 16 U/L (3-33) Alkaline Phosphatase 143 U/L (35-104) H Ammonia 84 umol/L (11-51) H Total Protein 8.6 g/dL (6.6-8.7) Albumin 1.8 g/dL (3.5-5.2) L Globulin 6.8 g/dL Albumin/Globulin Ratio 0.2 (1.0-2.7) L Prothrombin Time 14.0 SEC (9.30-11.50) H Prothromb Time International Ratio 1.4 (0.9-1.1) H Activated Partial Thromboplast Time 29 SEC (23-33) Current Medications Medications (Trade) Dose Ordered Sig/Gill Route PRN Reason Start Time Stop Time Status Last Admin Dose Admin Acetaminophen (Tylenol) 650 mg Q4H PRN ORAL T>100.5 02/10/17 12:30 03/12/17 12:29 Al Hydroxide/Mg Hydroxide (Mylanta II) 30 ml Q6H PRN ORAL dyspepsia 02/10/17 12:30 03/12/17 12:29 Aripiprazole (Abilify) 10 mg DAILY ORAL 02/11/17 09:00 03/13/17 08:59 02/12/17 09:39 Dextrose (D5W 1000ml) 1,000 ml @ 60 mls/hr [id number] IV 02/12/17 11:15 03/14/17 11:14 02/12/17 12:14 Dextrose (Dextrose 50%) STAT PRN IV Hypoglycemia 02/10/17 12:30 03/12/17 12:29 Divalproex Sodium (Depakote ER) 500 mg EVERY 12 HOURS ORAL 02/10/17 21:00 03/12/17 20:59 02/12/17 09:44 Docusate Sodium (Colace) 100 mg BID GT 02/11/17 12:00 03/13/17 11:59 02/12/17 09:47 Famotidine (Pepcid I.v.) 20 mg Q24H IVP 02/10/17 21:00 03/12/17 20:59 02/11/17 20:48 Haloperidol Lactate 5 mg 5 mg Q4HR PRN IM Agitation 02/11/17 13:15 03/13/17 13:14 02/12/17 01:50 Ibuprofen (Motrin) 600 mg Q8H PRN ORAL For Pain 02/10/17 16:30 03/12/17 16:29 Lactulose (Cephulac) 30 gm EVERY 6 HOURS ORAL 02/10/17 18:00 03/12/17 17:59 02/12/17 12:14 Lansoprazole (Prevacid) 30 mg ACBREAKFAST ORAL 02/12/17 12:00 03/14/17 11:59 Lorazepam (Ativan 2mg/ml 1ml) 0.5 mg Q4H PRN IV For Anxiety 02/10/17 12:30 02/17/17 12:29 Morphine Sulfate 2 mg 2 mg Q4H PRN IVP PAIN IF UNRELIEVED BY ORALS 02/12/17 11:31 02/17/17 12:29 Ondansetron HCl (Zofran) 4 mg Q6H PRN IVP Nausea & Vomiting 02/10/17 12:30 03/12/17 12:29 Polyethylene Glycol (Miralax) 17 gm HSPRN PRN ORAL Constipation 02/10/17 21:00 03/12/17 20:59 Propranolol HCl (Inderal) 10 mg BID ORAL 02/10/17 18:00 03/12/17 17:59 02/12/17 09:39 Quetiapine Fumarate (SEROquel) 100 mg QHS ORAL 02/10/17 21:00 03/12/17 20:59 02/11/17 20:40 Rifaximin (Xifaxan) 550 mg EVERY 12 HOURS ORAL 02/10/17 21:00 02/17/17 20:59 02/12/17 09:39 Temazepam (Restoril) 15 mg HSPRN PRN ORAL Insomnia 02/10/17 16:30 02/17/17 16:29 Vancomycin HCl 1 ea 1 ea DAILY PRN MISC .Per Rx Protocol 02/12/17 14:00 03/14/17 13:59 Vancomycin HCl/ Dextrose (Vancomycin/D5W) 275 ml @ 183.708 mls/hr ONCE ONCE IVPB 02/12/17 14:00 02/12/17 15:29 Vancomycin HCl/ Dextrose (Vancomycin/D5W) 275 ml @ 183.708 mls/hr Q24H IVPB 02/13/17 14:00 02/18/17 13:59 Zolpidem Tartrate (Ambien) 5 mg HSPRN PRN ORAL Insomnia 02/10/17 21:00 03/12/17 20:59 02/12/17 00:09 Pura Klein M.D. February 12, 2017 14:26
--- NOTE | 2017-02-12 15:03 | General Progress Note ---
Assessment/Plan Assessment/Plan Assessment/Plan Problems: (1) Severe malnutrition ICD Codes: E43 - Unspecified severe protein-calorie malnutrition SNOMED: 00887941 (2) Altered mental state ICD Codes: R41.82 - Altered mental status, unspecified SNOMED: 431892462, 528180602 Qualifiers: Qualified Codes: R41.82 - Altered mental status, unspecified (3) Encephalopathy, multifactorial, hepatic/septic/renal (4) Encephalopathy ICD Codes: G93.40 - Encephalopathy, unspecified SNOMED: 82705681, 180772544 (5) Liver cirrhosis ICD Codes: K74.60 - Unspecified cirrhosis of liver SNOMED: 19547080 Qualifiers: Qualified Codes: K74.60 - Unspecified cirrhosis of liver Status: unchanged Assessment/Plan hep panel pending elevated ammonia >> cont lactulose + Xifaxan insert NGT, CXR confirmation NGTFs per dietary ppi monitor LFTs fu labs outpatient EGD/colonoscopy Subjective Allergies: Coded Allergies: PENICILLINS (Verified Allergy, Unknown, 02/10/17) Subjective confused crying diarrhea d/w RN Objective Last 24 Hour Vital Signs Date Time Temp Pulse Resp B/P Pulse Ox O2 Delivery O2 Flow Rate FiO2 02/12/17 12:00 97.3 67 20 120/71 92 Nasal Cannula 3.0 02/12/17 09:39 74 122/72 02/12/17 08:00 97.7 74 18 122/72 98 Nasal Cannula 3.0 02/12/17 04:04 97.8 80 18 138/76 99 Room Air 02/12/17 04:00 70 02/12/17 00:06 98.3 83 18 128/77 94 Room Air 02/12/17 00:00 74 02/11/17 20:41 85 130/77 02/11/17 20:30 98.6 85 19 130/77 95 Room Air 02/11/17 20:00 77 02/11/17 16:00 95 02/11/17 16:00 97.0 94 20 133/81 92 Nasal Cannula 2.0 Intake and Output 02/11/17 02/12/17 19:00 07:00 Output Total 425 ml 500 ml Balance -425 ml -500 ml Output Urine Total 425 ml 500 ml # Bowel Movements 1 1 Laboratory Tests 02/12/17 08:00: White Blood Count 5.4, Red Blood Count 3.97L, Hemoglobin 12.7, Hematocrit 39.6, Mean Corpuscular Volume 100H, Mean Corpuscular Hemoglobin 32.1H, Mean Corpuscular Hemoglobin Concent 32.2, Red Cell Distribution Width 16.1H, Platelet Count 111L, Mean Platelet Volume 6.2L, Neutrophils (%) (Auto) 68.5, Lymphocytes (%) (Auto) 18.6L, Monocytes (%) (Auto) 9.0, Eosinophils (%) (Auto) 3.1H, Basophils (%) (Auto) 0.8, Sodium Level 153H, Potassium Level 4.1, Chloride Level 117H, Carbon Dioxide Level 21, Anion Gap 15, Blood Urea Nitrogen 62H, Creatinine 1.5H, Estimat Glomerular Filtration Rate 36.4, Glucose Level 131H, Calcium Level 9.1, Total Bilirubin 2.3H, Direct Bilirubin 0.9H, Aspartate Amino Transf (AST/SGOT) 39, Alanine Aminotransferase (ALT/SGPT) 16, Alkaline Phosphatase 143H, Ammonia 84H, Total Protein 8.6, Albumin 1.8L, Globulin 6.8, Albumin/Globulin Ratio 0.2L 02/12/17 11:40: Prothrombin Time 14.0H, Prothromb Time International Ratio 1.4H, Activated Partial Thromboplast Time 29 Height (Feet): 5 Height (Inches): 6.00 Weight (Pounds): 130 Objective Confused NCAT supple (+) NGT CTA RRR Soft Flat no edema GUADALUPE MAYA February 12, 2017 15:03
[2017-02-12 16:00] VITALS: BP 127/73
--- NOTE | 2017-02-12 17:43 | Cardiology Report ---
APPROVED REPORT EKG Measurement Heart [id number] Normal sinus rhythm Abnormal ECG
--- NOTE | 2017-02-12 18:38 | Nephrology Progress Note ---
Assessment/Plan Problem List: (1) SHERIE (acute kidney injury) (2) Liver cirrhosis (3) UTI (urinary tract infection) (4) Encephalopathy, multifactorial, hepatic/septic/renal (5) Altered mental state (6) Psychiatric disorder Plan Hypernatremia - IVF d5w@75cc/hr Free water flush q shift Monitor BUN/cr Monitor I&O Monitor lytes Continue NGT Suction PRN Abx per ID AM labs Subjective ROS Limited/Unobtainable: Yes Subjective In bed, confused, yelling Objective Objective Last 24 Hour Vital Signs Date Time Temp Pulse Resp B/P Pulse Ox O2 Delivery O2 Flow Rate FiO2 02/12/17 17:47 73 127/73 02/12/17 16:00 97.3 73 20 127/73 96 Nasal Cannula 4.0 02/12/17 12:00 97.3 67 20 120/71 92 Nasal Cannula 3.0 02/12/17 11:49 66 02/12/17 09:39 74 122/72 02/12/17 08:00 97.7 74 18 122/72 98 Nasal Cannula 3.0 02/12/17 07:49 71 02/12/17 04:04 97.8 80 18 138/76 99 Room Air 02/12/17 04:00 70 02/12/17 00:06 98.3 83 18 128/77 94 Room Air 02/12/17 00:00 74 02/11/17 20:41 85 130/77 02/11/17 20:30 98.6 85 19 130/77 95 Room Air 02/11/17 20:00 77 Intake and Output 02/11/17 02/12/17 19:00 07:00 Output Total 425 ml 500 ml Balance -425 ml -500 ml Output Urine Total 425 ml 500 ml # Bowel Movements 1 1 Laboratory Tests 02/12/17 08:00: White Blood Count 5.4, Red Blood Count 3.97L, Hemoglobin 12.7, Hematocrit 39.6, Mean Corpuscular Volume 100H, Mean Corpuscular Hemoglobin 32.1H, Mean Corpuscular Hemoglobin Concent 32.2, Red Cell Distribution Width 16.1H, Platelet Count 111L, Mean Platelet Volume 6.2L, Neutrophils (%) (Auto) 68.5, Lymphocytes (%) (Auto) 18.6L, Monocytes (%) (Auto) 9.0, Eosinophils (%) (Auto) 3.1H, Basophils (%) (Auto) 0.8, Sodium Level 153H, Potassium Level 4.1, Chloride Level 117H, Carbon Dioxide Level 21, Anion Gap 15, Blood Urea Nitrogen 62H, Creatinine 1.5H, Estimat Glomerular Filtration Rate 36.4, Glucose Level 131H, Calcium Level 9.1, Total Bilirubin 2.3H, Direct Bilirubin 0.9H, Aspartate Amino Transf (AST/SGOT) 39, Alanine Aminotransferase (ALT/SGPT) 16, Alkaline Phosphatase 143H, Ammonia 84H, Total Protein 8.6, Albumin 1.8L, Globulin 6.8, Albumin/Globulin Ratio 0.2L 02/12/17 11:40: Prothrombin Time 14.0H, Prothromb Time International Ratio 1.4H, Activated Partial Thromboplast Time 29 Height (Feet): 5 Height (Inches): 6.00 Weight (Pounds): 130 General Appearance: confused, agitated EENT: normal ENT inspection Neck: normal alignment Cardiovascular: regular rhythm, no JVD Respiratory/Chest: normal breath sounds, no respiratory distress Abdomen: soft, no organomegaly Extremities: non-tender, normal inspection Neurologic: disoriented Madeline Fischer N.P. February 12, 2017 18:38
[2017-02-12 20:27] VITALS: BP 141/77
[2017-02-12] MEDS ORDERED: Valproic Acid 250mg/5ml Liquid GT SCH (21:00)
--- NOTE | 2017-02-12 21:52 | Pulmonology Progress Note ---
Assessment/Plan Problems: (1) Encephalopathy (2) Liver cirrhosis (3) UTI (urinary tract infection) (4) Encephalopathy, multifactorial, hepatic/septic/renal (5) Psychiatric disorder Assessment/Plan unchanged still agitated Haldol prn continue IV fluids f/u electrolytes keep in teli. Subjective ROS Limited/Unobtainable: Yes Allergies: Coded Allergies: PENICILLINS (Verified Allergy, Unknown, 02/10/17) Objective Last 24 Hour Vital Signs Date Time Temp Pulse Resp B/P Pulse Ox O2 Delivery O2 Flow Rate FiO2 02/12/17 20:27 98.5 70 18 141/77 93 Nasal Cannula 3.0 02/12/17 17:47 73 127/73 02/12/17 16:00 97.3 73 20 127/73 96 Nasal Cannula 4.0 02/12/17 12:00 97.3 67 20 120/71 92 Nasal Cannula 3.0 02/12/17 11:49 66 02/12/17 09:39 74 122/72 02/12/17 08:00 97.7 74 18 122/72 98 Nasal Cannula 3.0 02/12/17 07:49 71 02/12/17 04:04 97.8 80 18 138/76 99 Room Air 02/12/17 04:00 70 02/12/17 00:06 98.3 83 18 128/77 94 Room Air 02/12/17 00:00 74 Intake and Output 02/11/17 02/12/17 19:00 07:00 Output Total 425 ml 500 ml Balance -425 ml -500 ml Output Urine Total 425 ml 500 ml # Bowel Movements 1 1 General Appearance: cachetic HEENT: normocephalic, atraumatic Respiratory/Chest: chest wall non-tender, lungs clear Cardiovascular: normal peripheral pulses, regular rhythm Abdomen: normal bowel sounds, soft, non tender Extremities: no cyanosis, no clubbing Microbiology Date/Time Source Procedure Growth Status 02/10/17 11:53 Nasal Nares MRSA Culture - Final NO METHICILLIN RESISTANT STAPH AUREUS... Complete 02/10/17 11:10 Urine,Clean Catch Urine Culture - Preliminary Staphylococcus Aureus Resulted 02/10/17 11:10 Rectal Mucosa VRE Culture - Final NO VANCOMYCIN RESISTANT ENTEROCOCCUS ... Complete Laboratory Tests 02/12/17 08:00: White Blood Count 5.4, Red Blood Count 3.97L, Hemoglobin 12.7, Hematocrit 39.6, Mean Corpuscular Volume 100H, Mean Corpuscular Hemoglobin 32.1H, Mean Corpuscular Hemoglobin Concent 32.2, Red Cell Distribution Width 16.1H, Platelet Count 111L, Mean Platelet Volume 6.2L, Neutrophils (%) (Auto) 68.5, Lymphocytes (%) (Auto) 18.6L, Monocytes (%) (Auto) 9.0, Eosinophils (%) (Auto) 3.1H, Basophils (%) (Auto) 0.8, Sodium Level 153H, Potassium Level 4.1, Chloride Level 117H, Carbon Dioxide Level 21, Anion Gap 15, Blood Urea Nitrogen 62H, Creatinine 1.5H, Estimat Glomerular Filtration Rate 36.4, Glucose Level 131H, Calcium Level 9.1, Total Bilirubin 2.3H, Direct Bilirubin 0.9H, Aspartate Amino Transf (AST/SGOT) 39, Alanine Aminotransferase (ALT/SGPT) 16, Alkaline Phosphatase 143H, Ammonia 84H, Total Protein 8.6, Albumin 1.8L, Globulin 6.8, Albumin/Globulin Ratio 0.2L 02/12/17 11:40: Prothrombin Time 14.0H, Prothromb Time International Ratio 1.4H, Activated Partial Thromboplast Time 29 Current Medications Medications (Trade) Dose Ordered Sig/Gill Route PRN Reason Start Time Stop Time Status Last Admin Dose Admin Acetaminophen (Tylenol) 650 mg Q4H PRN ORAL T>100.5 02/10/17 12:30 03/12/17 12:29 Al Hydroxide/Mg Hydroxide (Mylanta II) 30 ml Q6H PRN ORAL dyspepsia 02/10/17 12:30 03/12/17 12:29 Aripiprazole (Abilify) 10 mg DAILY ORAL 02/11/17 09:00 03/13/17 08:59 02/12/17 09:39 Dextrose (D5W 1000ml) 1,000 ml @ 60 mls/hr [id number] IV 02/12/17 11:15 03/14/17 11:14 02/12/17 12:14 Dextrose (Dextrose 50%) STAT PRN IV Hypoglycemia 02/10/17 12:30 03/12/17 12:29 Docusate Sodium (Colace) 100 mg BID GT 02/11/17 12:00 03/13/17 11:59 02/12/17 17:47 Haloperidol Lactate 5 mg 5 mg Q4HR PRN IM Agitation 02/11/17 13:15 03/13/17 13:14 02/12/17 18:29 Ibuprofen (Motrin) 600 mg Q8H PRN ORAL For Pain 02/10/17 16:30 03/12/17 16:29 Lactulose (Cephulac) 30 gm EVERY 6 HOURS ORAL 02/10/17 18:00 03/12/17 17:59 02/12/17 18:05 Lansoprazole (Prevacid) 30 mg ACBREAKFAST ORAL 02/12/17 12:00 03/14/17 11:59 Lorazepam (Ativan 2mg/ml 1ml) 0.5 mg Q4H PRN IV For Anxiety 02/10/17 12:30 02/17/17 12:29 Morphine Sulfate (Morphine Sulfate) 2 mg Q4H PRN IVP PAIN IF UNRELIEVED BY ORALS 02/12/17 11:31 02/17/17 12:29 02/12/17 15:04 Ondansetron HCl (Zofran) 4 mg Q6H PRN IVP Nausea & Vomiting 02/10/17 12:30 03/12/17 12:29 Polyethylene Glycol (Miralax) 17 gm HSPRN PRN ORAL Constipation 02/10/17 21:00 03/12/17 20:59 Propranolol HCl (Inderal) 10 mg BID ORAL 02/10/17 18:00 03/12/17 17:59 02/12/17 17:47 Quetiapine Fumarate (SEROquel) 100 mg QHS ORAL 02/10/17 21:00 03/12/17 20:59 02/12/17 20:46 Rifaximin (Xifaxan) 550 mg EVERY 12 HOURS ORAL 02/10/17 21:00 02/17/17 20:59 02/12/17 20:46 Temazepam (Restoril) 15 mg HSPRN PRN ORAL Insomnia 02/10/17 16:30 02/17/17 16:29 Valproic Acid (Depakene) 500 mg Q12H GT 02/12/17 21:00 03/14/17 20:59 02/12/17 20:47 Vancomycin HCl 1 ea 1 ea DAILY PRN MISC .Per Rx Protocol 02/12/17 14:00 03/14/17 13:59 Vancomycin HCl/ Dextrose (Vancomycin/D5W) 275 ml @ 183.708 mls/hr Q24H IVPB 02/13/17 14:00 02/18/17 13:59 Zolpidem Tartrate (Ambien) 5 mg HSPRN PRN ORAL Insomnia 02/10/17 21:00 03/12/17 20:59 02/12/17 00:09 MANFRED YING February 12, 2017 21:52
[2017-02-13] MEDS: Vancomycin 1 GM in D5W 275 ML IVPB SCH (00:05)
[2017-02-13 00:14] VITALS: BP 129/72
[2017-02-13] MEDS ORDERED: Mylanta II UD 30ml ORAL PRN (00:30)
[2017-02-13] MEDS ORDERED: LORazepam Inj 2mg/ml 1ml IV PRN (00:30)
[2017-02-13] MEDS: LORazepam 1mg tab ORAL SCH ×3 (00:56→09:48)
[2017-02-13] MEDS: Haloperidol 5mg/ml Inj IM PRN ×2 (02:03→06:23)
[2017-02-13 04:19] VITALS: BP 110/63
[2017-02-13] MEDS: Lactulose 20gm/30ml UDC ORAL SCH (06:05)
[2017-02-13 06:49] LABS: BASOPHILS % (AUTO) 0.6 % (0.0-2.0); EOSINOPHILS % (AUTO) 4.3 % (0.0-3.0); LYMPHOCYTES % (AUTO) 14.2 % (20.0-45.0); MEAN CORPUSCULAR HEMOGLOBIN 32.6 PG (27.0-31.0); MEAN CORPUSCULAR HGB CONC 32.3 G/DL (32.0-36.0); MEAN CORPUSCULAR VOLUME 101 FL (80-99); MEAN PLATELET VOLUME 6.6 FL (6.5-10.1); MONOCYTES % (AUTO) 6.2 % (1.0-10.0); NEUTROPHILS % (AUTO) 74.7 % (45.0-75.0); PLATELET COUNT 117 K/UL (150-450); RED BLOOD COUNT 3.68 M/UL (4.20-5.40); WHITE BLOOD COUNT 6.4 K/UL (4.8-10.8)
[2017-02-13 07:13] LABS: ALBUMIN/GLOBULIN RATIO 0.2 (1.0-2.7); CALCIUM 9.3 mg/dL (8.6-10.2); CREATININE 1.4 mg/dL (0.5-0.9); GLOMERULAR FILTRATION RATE 39.3 mL/min (>60); POTASSIUM 3.4 mEQ/L (3.4-4.9); TOTAL PROTEIN 8.7 g/dL (6.6-8.7)
[2017-02-13 07:54] LABS: BILIRUBIN,DIRECT 0.9 mg/dL (0.1-0.3)
[2017-02-13 08:00] VITALS: BP 116/73
--- NOTE | 2017-02-13 08:07 | General Progress Note ---
Assessment/Plan Problem List: (1) Liver cirrhosis ICD Codes: K74.60 - Unspecified cirrhosis of liver SNOMED: 01218386 Qualifiers: Qualified Codes: K74.60 - Unspecified cirrhosis of liver (2) Encephalopathy ICD Codes: G93.40 - Encephalopathy, unspecified SNOMED: 48090511, 833805450 (3) UTI (urinary tract infection) ICD Codes: N39.0 - Urinary tract infection, site not specified SNOMED: 21731535 Qualifiers: Qualified Codes: N30.01 - Acute cystitis with hematuria (4) Encephalopathy, multifactorial, hepatic/septic/renal (5) Altered mental state ICD Codes: R41.82 - Altered mental status, unspecified SNOMED: 183581734, 767930876 Qualifiers: Qualified Codes: R41.82 - Altered mental status, unspecified (6) Severe malnutrition ICD Codes: E43 - Unspecified severe protein-calorie malnutrition SNOMED: 69529107 (7) Psychiatric disorder ICD Codes: F99 - Mental disorder, not otherwise specified SNOMED: 46631979, 437932644 Status: stable, progressing, tolerating diet Assessment/Plan ot pt diet ivf psyc neuro gi tx cbc bmp am Subjective Constitutional: Reports: weakness Allergies: Coded Allergies: PENICILLINS (Verified Allergy, Unknown, 02/10/17) All Systems: reviewed and negative except above Subjective 02nc ng sleepy Objective Last 24 Hour Vital Signs Date Time Temp Pulse Resp B/P Pulse Ox O2 Delivery O2 Flow Rate FiO2 02/13/17 04:19 97.1 68 18 110/63 93 Room Air 68 02/13/17 00:14 96.5 75 18 129/72 98 Room Air 75 02/12/17 23:15 95 121/61 02/12/17 20:27 98.5 70 18 141/77 93 Nasal Cannula 3.0 02/12/17 17:47 73 127/73 02/12/17 16:00 97.3 73 20 127/73 96 Nasal Cannula 4.0 02/12/17 12:00 97.3 67 20 120/71 92 Nasal Cannula 3.0 02/12/17 11:49 66 02/12/17 09:39 74 122/72 Intake and Output 02/12/17 02/13/17 19:00 07:00 Intake Total 240 ml 360 ml Output Total 800 ml 675 ml Balance -560 ml -315 ml IV Total 240 ml 360 ml Output Urine Total 800 ml 675 ml Stool Total 0 ml # Bowel Movements 3 1 Laboratory Tests 02/12/17 11:40: Prothrombin Time 14.0H, Prothromb Time International Ratio 1.4H, Activated Partial Thromboplast Time 29 02/13/17 05:20: White Blood Count 6.4, Red Blood Count 3.68L, Hemoglobin 12.0, Hematocrit 37.1, Mean Corpuscular Volume 101H, Mean Corpuscular Hemoglobin 32.6H, Mean Corpuscular Hemoglobin Concent 32.3, Red Cell Distribution Width 16.0H, Platelet Count 117L, Mean Platelet Volume 6.6, Neutrophils (%) (Auto) 74.7, Lymphocytes (%) (Auto) 14.2L, Monocytes (%) (Auto) 6.2, Eosinophils (%) (Auto) 4.3H, Basophils (%) (Auto) 0.6, Sodium Level 154H, Potassium Level 3.4, Chloride Level 114H, Carbon Dioxide Level 24, Anion Gap 16H, Blood Urea Nitrogen 61H, Creatinine 1.4H, Estimat Glomerular Filtration Rate 39.3, Glucose Level 98, Calcium Level 9.3, Phosphorus Level [Pending], Magnesium Level [ Pending], Total Bilirubin 2.4H, Direct Bilirubin 0.9H, Aspartate Amino Transf ( AST/SGOT) 44H, Alanine Aminotransferase (ALT/SGPT) 18, Alkaline Phosphatase 150H , Total Protein 8.7, Albumin 2.0L, Globulin 6.7, Albumin/Globulin Ratio 0.2L Height (Feet): 5 Height (Inches): 6.00 Weight (Pounds): 130 General Appearance: lethargic EENT: normal ENT inspection Neck: normal alignment Cardiovascular: normal peripheral pulses, normal rate, regular rhythm Respiratory/Chest: chest wall non-tender, lungs clear, normal breath sounds Abdomen: normal bowel sounds, non tender, soft Extremities: normal inspection Edema: no edema noted Arm (L), no edema noted Arm (R), no edema noted Leg (L), no edema noted Leg (R), no edema noted Pedal (L), no edema noted Pedal (R), no edema noted Generalized Neurologic: motor weakness Skin: normal pigmentation, warm/dry TERE GILES February 13, 2017 08:07
[2017-02-13 08:13] LABS: PHOSPHORUS 3.3 mg/dL (2.5-4.8)
[2017-02-13] MEDS ORDERED: Docusate 100mg/10ml Liq GT SCH (09:00)
[2017-02-13] MEDS ORDERED: Rifaximin 550mg tab ORAL SCH (09:00)
[2017-02-13] MEDS ORDERED: Propranolol 10mg tab ORAL SCH (09:00)
[2017-02-13] MEDS ORDERED: ARIPiprazole 10mg tab ORAL SCH ×2 (09:00)
[2017-02-13] MEDS ORDERED: Docusate 100mg cap ORAL SCH (09:00)
[2017-02-13] MEDS: Depakote ER 500mg tab ORAL SCH (09:49)
[2017-02-13] MEDS: Valproic Acid 250mg/5ml Liquid GT SCH ×2 (09:49→21:00)
[2017-02-13] MEDS: Propranolol 10mg tab ORAL SCH (09:50)
[2017-02-13] MEDS ORDERED: Tubing IV Secondary IV ONE (09:57)
[2017-02-13] MEDS ORDERED: NS 275ml ONE (09:57)
[2017-02-13] MEDS ORDERED: Mylanta II UD 30ml NG PRN (10:36)
[2017-02-13] MEDS ORDERED: Lactulose 20gm/30ml UDC NG SCH (10:38)
[2017-02-13] MEDS: LORazepam 1mg tab NG SCH ×4 (10:45→22:45)
--- NOTE | 2017-02-13 10:53 | Diagnostic Imaging Report ---
Indication: NG tube Comparison: Earlier today Single view of the abdomen obtained The NG tube is currently slightly high. The tip is in the stomach. The proximal port is right at the GE junction. More optimal positioning would be to advance the tube slightly. Impression: NG tube slightly high.
[2017-02-13 12:00] VITALS: BP 134/81
[2017-02-13] MEDS ORDERED: Vancomycin 750mg/D5W 275ml IVPB SCH ×2 (14:00)
--- NOTE | 2017-02-13 15:52 | General Progress Note ---
Assessment/Plan Assessment/Plan Assessment/Plan Problems: (1) Severe malnutrition ICD Codes: E43 - Unspecified severe protein-calorie malnutrition SNOMED: 84188546 (2) Altered mental state ICD Codes: R41.82 - Altered mental status, unspecified SNOMED: 670842378, 690547433 Qualifiers: Qualified Codes: R41.82 - Altered mental status, unspecified (3) Encephalopathy, multifactorial, hepatic/septic/renal (4) Encephalopathy ICD Codes: G93.40 - Encephalopathy, unspecified SNOMED: 81791133, 274163237 (5) Liver cirrhosis (6) high Na Assessment/Plan Increase free water by IV and NGT elevated ammonia >> cont lactulose + Xifaxan reduce lactulose to help Na NGTFs per dietary ppi monitor LFTs fu labs outpatient EGD/colonoscopy Subjective Allergies: Coded Allergies: PENICILLINS (Verified Allergy, Unknown, 02/10/17) Subjective confused more calm d/w RN Objective Last 24 Hour Vital Signs Date Time Temp Pulse Resp B/P Pulse Ox O2 Delivery O2 Flow Rate FiO2 02/13/17 12:00 96.3 76 18 134/81 98 Nasal Cannula 5.0 02/13/17 09:50 75 116/73 02/13/17 09:00 75 116/73 02/13/17 08:00 96.5 75 18 116/73 92 5.0 02/13/17 04:19 97.1 68 18 110/63 93 Room Air 68 02/13/17 00:14 96.5 75 18 129/72 98 Room Air 75 02/12/17 23:15 95 121/61 02/12/17 20:27 98.5 70 18 141/77 93 Nasal Cannula 3.0 02/12/17 17:47 73 127/73 02/12/17 16:00 97.3 73 20 127/73 96 Nasal Cannula 4.0 Intake and Output 02/12/17 02/13/17 19:00 07:00 Intake Total 240 ml 360 ml Output Total 800 ml 675 ml Balance -560 ml -315 ml IV Total 240 ml 360 ml Output Urine Total 800 ml 675 ml Stool Total 0 ml # Bowel Movements 3 1 Laboratory Tests 02/13/17 05:20: White Blood Count 6.4, Red Blood Count 3.68L, Hemoglobin 12.0, Hematocrit 37.1, Mean Corpuscular Volume 101H, Mean Corpuscular Hemoglobin 32.6H, Mean Corpuscular Hemoglobin Concent 32.3, Red Cell Distribution Width 16.0H, Platelet Count 117L, Mean Platelet Volume 6.6, Neutrophils (%) (Auto) 74.7, Lymphocytes (%) (Auto) 14.2L, Monocytes (%) (Auto) 6.2, Eosinophils (%) (Auto) 4.3H, Basophils (%) (Auto) 0.6, Sodium Level 154H, Potassium Level 3.4, Chloride Level 114H, Carbon Dioxide Level 24, Anion Gap 16H, Blood Urea Nitrogen 61H, Creatinine 1.4H, Estimat Glomerular Filtration Rate 39.3, Glucose Level 98, Calcium Level 9.3, Phosphorus Level 3.3, Magnesium Level 2.0, Total Bilirubin 2.4H, Direct Bilirubin 0.9H, Aspartate Amino Transf (AST/SGOT) 44H, Alanine Aminotransferase (ALT/SGPT) 18, Alkaline Phosphatase 150H, Total Protein 8.7, Albumin 2.0L, Globulin 6.7, Albumin/Globulin Ratio 0.2L Height (Feet): 5 Height (Inches): 6.00 Weight (Pounds): 130 Objective Confused NCAT supple (+) NGT CTA RRR Soft Flat no edema GUADALUPE MAYA February 13, 2017 15:52
[2017-02-13 16:00] VITALS: BP 115/79
[2017-02-13] MEDS ORDERED: Morphine Sulfate 2mg/ml Inj IM PRN (17:30)
--- NOTE | 2017-02-13 17:57 | Nephrology Progress Note ---
Assessment/Plan Problem List: (1) SHERIE (acute kidney injury) (2) Liver cirrhosis (3) UTI (urinary tract infection) (4) Encephalopathy, multifactorial, hepatic/septic/renal (5) Altered mental state (6) Psychiatric disorder Plan Continue IVF d5w@100cc/hr Increase Free water flush Monitor BUN/cr Monitor I&O Monitor lytes Re-insert NGT Suction PRN Abx per ID AM labs Subjective ROS Limited/Unobtainable: Yes Subjective In bed, disoriented Objective Objective Last 24 Hour Vital Signs Date Time Temp Pulse Resp B/P Pulse Ox O2 Delivery O2 Flow Rate FiO2 02/13/17 16:00 96.3 85 18 115/79 96 Nasal Cannula 5.0 02/13/17 12:00 96.3 76 18 134/81 98 Nasal Cannula 5.0 02/13/17 09:50 75 116/73 02/13/17 09:00 75 116/73 02/13/17 08:00 96.5 75 18 116/73 92 5.0 02/13/17 04:19 97.1 68 18 110/63 93 Room Air 68 02/13/17 00:14 96.5 75 18 129/72 98 Room Air 75 02/12/17 23:15 95 121/61 02/12/17 20:27 98.5 70 18 141/77 93 Nasal Cannula 3.0 Intake and Output 02/12/17 02/13/17 19:00 07:00 Intake Total 240 ml 360 ml Output Total 800 ml 675 ml Balance -560 ml -315 ml IV Total 240 ml 360 ml Output Urine Total 800 ml 675 ml Stool Total 0 ml # Bowel Movements 3 1 Laboratory Tests 02/13/17 05:20: White Blood Count 6.4, Red Blood Count 3.68L, Hemoglobin 12.0, Hematocrit 37.1, Mean Corpuscular Volume 101H, Mean Corpuscular Hemoglobin 32.6H, Mean Corpuscular Hemoglobin Concent 32.3, Red Cell Distribution Width 16.0H, Platelet Count 117L, Mean Platelet Volume 6.6, Neutrophils (%) (Auto) 74.7, Lymphocytes (%) (Auto) 14.2L, Monocytes (%) (Auto) 6.2, Eosinophils (%) (Auto) 4.3H, Basophils (%) (Auto) 0.6, Sodium Level 154H, Potassium Level 3.4, Chloride Level 114H, Carbon Dioxide Level 24, Anion Gap 16H, Blood Urea Nitrogen 61H, Creatinine 1.4H, Estimat Glomerular Filtration Rate 39.3, Glucose Level 98, Calcium Level 9.3, Phosphorus Level 3.3, Magnesium Level 2.0, Total Bilirubin 2.4H, Direct Bilirubin 0.9H, Aspartate Amino Transf (AST/SGOT) 44H, Alanine Aminotransferase (ALT/SGPT) 18, Alkaline Phosphatase 150H, Total Protein 8.7, Albumin 2.0L, Globulin 6.7, Albumin/Globulin Ratio 0.2L Height (Feet): 5 Height (Inches): 6.00 Weight (Pounds): 130 General Appearance: no apparent distress Neck: normal alignment, supple Cardiovascular: no JVD Respiratory/Chest: normal breath sounds, no respiratory distress Abdomen: soft, no organomegaly Extremities: normal inspection Neurologic: disoriented Madeline Fischer N.P. February 13, 2017 17:57
[2017-02-13] MEDS: Morphine Sulfate 2mg/ml Inj IVP PRN ×2 (17:58→22:19)
[2017-02-13] MEDS: Propranolol 10mg tab NG SCH (17:58)
[2017-02-13 20:03] VITALS: BP 122/80
[2017-02-13] MEDS ORDERED: Miralax 17gm pkt NG PRN (21:00)
[2017-02-13] MEDS: Depakote 125mg Sprinkles NG SCH (21:00)
[2017-02-13] MEDS: Rifaximin 550mg tab NG SCH (21:00)
[2017-02-13] MEDS ORDERED: Zolpidem 5mg tab NG PRN (21:00)
[2017-02-13] MEDS: Lactulose 20gm/30ml UDC NG SCH (21:50)
--- NOTE | 2017-02-13 22:48 | Progress Note ---
DATE: 02/12/2017 TREATING ATTENDING PHYSICIAN: Adolfo Busch D.O. SUBJECTIVE: The patient is a 51-year-old female patient . The patient has poor insight, poor judgment, and poor impulse control. She has and she has had affect. PLAN: . Encouraging the patient to participate in treatment milieu. Continue with medication management and behavioral management. This clinician has reviewed the patient's chart and discussed the treatment with nursing staff. Timbo Guadalupe PsyD. DR: CAROLINA JOB#: [id number] CC:
--- NOTE | 2017-02-13 22:56 | Pulmonology Progress Note ---
Assessment/Plan Problems: (1) Encephalopathy (2) Liver cirrhosis (3) UTI (urinary tract infection) (4) Encephalopathy, multifactorial, hepatic/septic/renal (5) Psychiatric disorder Assessment/Plan no change still agitated Haldol prn continue IV fluids f/u electrolytes keep in teli. Subjective ROS Limited/Unobtainable: No Allergies: Coded Allergies: PENICILLINS (Verified Allergy, Unknown, 02/10/17) Objective Last 24 Hour Vital Signs Date Time Temp Pulse Resp B/P Pulse Ox O2 Delivery O2 Flow Rate FiO2 02/13/17 20:03 95.7 75 17 122/80 97 Nasal Cannula 5.0 75 02/13/17 17:58 85 115/79 02/13/17 16:00 96.3 85 18 115/79 96 Nasal Cannula 5.0 02/13/17 12:00 96.3 76 18 134/81 98 Nasal Cannula 5.0 02/13/17 09:50 75 116/73 02/13/17 09:00 75 116/73 02/13/17 08:00 96.5 75 18 116/73 92 5.0 02/13/17 04:19 97.1 68 18 110/63 93 Room Air 68 02/13/17 00:14 96.5 75 18 129/72 98 Room Air 75 02/12/17 23:15 95 121/61 Intake and Output 02/12/17 02/13/17 19:00 07:00 Intake Total 240 ml 360 ml Output Total 800 ml 675 ml Balance -560 ml -315 ml IV Total 240 ml 360 ml Output Urine Total 800 ml 675 ml Stool Total 0 ml # Bowel Movements 3 1 General Appearance: cachetic HEENT: normocephalic, atraumatic Respiratory/Chest: chest wall non-tender, normal breath sounds Cardiovascular: normal peripheral pulses, normal rate Abdomen: normal bowel sounds, soft, non tender, no scars Extremities: no cyanosis Skin: no rash Laboratory Tests 02/13/17 05:20: White Blood Count 6.4, Red Blood Count 3.68L, Hemoglobin 12.0, Hematocrit 37.1, Mean Corpuscular Volume 101H, Mean Corpuscular Hemoglobin 32.6H, Mean Corpuscular Hemoglobin Concent 32.3, Red Cell Distribution Width 16.0H, Platelet Count 117L, Mean Platelet Volume 6.6, Neutrophils (%) (Auto) 74.7, Lymphocytes (%) (Auto) 14.2L, Monocytes (%) (Auto) 6.2, Eosinophils (%) (Auto) 4.3H, Basophils (%) (Auto) 0.6, Sodium Level 154H, Potassium Level 3.4, Chloride Level 114H, Carbon Dioxide Level 24, Anion Gap 16H, Blood Urea Nitrogen 61H, Creatinine 1.4H, Estimat Glomerular Filtration Rate 39.3, Glucose Level 98, Calcium Level 9.3, Phosphorus Level 3.3, Magnesium Level 2.0, Total Bilirubin 2.4H, Direct Bilirubin 0.9H, Aspartate Amino Transf (AST/SGOT) 44H, Alanine Aminotransferase (ALT/SGPT) 18, Alkaline Phosphatase 150H, Total Protein 8.7, Albumin 2.0L, Globulin 6.7, Albumin/Globulin Ratio 0.2L Current Medications Medications (Trade) Dose Ordered Sig/Gill Route PRN Reason Start Time Stop Time Status Last Admin Dose Admin Al Hydroxide/Mg Hydroxide (Mylanta II) 30 ml Q6H PRN NG dyspepsia 02/13/17 10:36 03/15/17 00:29 Aripiprazole (Abilify) 10 mg DAILY NG 02/13/17 10:36 03/15/17 08:59 Dextrose (D5W 1000ml) 1,000 ml @ 100 mls/hr Q10H IV 02/13/17 16:00 03/15/17 15:59 02/13/17 16:26 Dextrose (Dextrose 50%) STAT PRN IV Hypoglycemia 02/13/17 12:30 03/15/17 12:29 Divalproex Sodium 500 mg 500 mg EVERY 12 HOURS NG 02/13/17 21:00 03/15/17 20:59 Haloperidol Lactate (Haldol) 5 mg Q4H PRN IM Agitation 02/13/17 01:00 03/15/17 00:59 02/13/17 06:23 Ibuprofen (Motrin) 600 mg Q8H PRN ORAL For Pain 02/13/17 00:30 03/15/17 00:29 02/13/17 16:29 Lactulose (Cephulac) 30 gm EVERY 8 HOURS NG 02/13/17 22:00 03/15/17 21:59 Lansoprazole (Prevacid) 30 mg ACBREAKFAST NG 02/13/17 10:38 03/15/17 06:29 Lorazepam (Ativan) 1 mg Q4H NG 02/13/17 10:45 02/20/17 00:59 Morphine Sulfate (Morphine Sulfate) 2 mg Q4H PRN IVP For Pain 02/13/17 17:30 02/20/17 17:29 02/13/17 22:19 Ondansetron HCl (Zofran) 4 mg Q6H PRN IVP Nausea & Vomiting 02/13/17 00:30 03/15/17 00:29 Polyethylene Glycol (Miralax) 17 gm HSPRN PRN NG Constipation 02/13/17 21:00 03/15/17 20:59 Propranolol HCl (Inderal) 10 mg BID NG 02/13/17 10:50 03/15/17 08:59 Quetiapine Fumarate 100 mg 100 mg QHS NG 02/13/17 21:00 03/15/17 20:59 Rifaximin (Xifaxan) 550 mg EVERY 12 HOURS NG 02/13/17 10:51 02/20/17 08:59 Valproic Acid (Depakene) 500 mg Q12H GT 02/13/17 09:00 03/15/17 08:59 02/13/17 09:49 Vancomycin HCl (Vanco rx to dose) 1 ea DAILY PRN MISC .Per Rx Protocol 02/13/17 09:00 03/15/17 08:59 Vancomycin HCl/ Dextrose (Vancomycin/D5W) 275 ml @ 183.708 mls/hr Q24H IVPB 02/13/17 00:00 02/18/17 00:00 02/13/17 00:05 MANFRED YING February 13, 2017 22:56
[2017-02-14 00:01] VITALS: BP 118/69
[2017-02-14] MEDS: Vancomycin 1 GM in D5W 275 ML IVPB SCH ×2 (00:03→23:35)
[2017-02-14] MEDS: LORazepam 1mg tab NG SCH ×6 (03:10→22:23)
[2017-02-14] MEDS: Haloperidol 5mg/ml Inj IM PRN (04:21)
[2017-02-14 04:43] VITALS: BP 136/80
[2017-02-14] MEDS: Lactulose 20gm/30ml UDC NG SCH ×3 (05:42→22:21)
[2017-02-14 08:02] LABS: MEAN CORPUSCULAR HEMOGLOBIN 32.6 PG (27.0-31.0); MEAN CORPUSCULAR HGB CONC 32.7 G/DL (32.0-36.0); MEAN CORPUSCULAR VOLUME 100 FL (80-99); MEAN PLATELET VOLUME 6.2 FL (6.5-10.1); PLATELET COUNT 98 K/UL (150-450); RED BLOOD COUNT 3.43 M/UL (4.20-5.40); RED CELL DISTRIBUTION WIDTH 15.4 % (11.6-14.8); WHITE BLOOD COUNT 7.6 K/UL (4.8-10.8)
[2017-02-14 08:09] LABS: CALCIUM 9.1 mg/dL (8.6-10.2); CREATININE 1.3 mg/dL (0.5-0.9); GLOMERULAR FILTRATION RATE 42.8 mL/min (>60); POTASSIUM 3.2 mEQ/L (3.4-4.9)
--- NOTE | 2017-02-14 08:09 | Diagnostic Imaging Report ---
Indication: NG tube Comparison: 02/11/2017 Single view of the abdomen obtained NG tube is in good position within the stomach. No change otherwise. Impression: NG tube has been advanced slightly and remains in good position.
--- NOTE | 2017-02-14 08:09 | Diagnostic Imaging Report ---
Indication: Dyspnea Comparison: 02/11/17 A single view chest radiograph was obtained. Findings: Increased interstitial markings are noted in the setting of prominent pulmonary vascularity. Heart size remains normal. Bones are unremarkable. NG tube is in good position. Impression: Suspect mild interstitial edema
[2017-02-14 08:15] VITALS: BP 130/77
[2017-02-14] MEDS: Morphine Sulfate 2mg/ml Inj IVP PRN (08:41)
--- NOTE | 2017-02-14 10:13 | Diagnostic Imaging Report ---
Indications: Right knee swelling, decreased range of motion Technique: 3 views right knee Findings: Comparison: None Suprapatellar bursa is distended and increased in attenuation. No associated fat fluid level demonstrated. Knee joint bursa also appears distended and increased attenuation. No fracture, dislocation, lytic destruction, periosteal reaction, surrounding soft tissue swelling or other acute changes are identified. Knee joint space narrowed with subchondral sclerosis and cyst formation, marginal osteophyte formation. Patellofemoral joint space also narrowed with marginal osteophyte formation. IMPRESSION: Prominent knee joint and suprapatellar effusion, nonspecific No other evidence of acute abnormality Osteoarthritis
--- NOTE | 2017-02-14 10:16 | Diagnostic Imaging Report ---
Indications: Nasogastric tube placement Technique: Portable supine AP abdomen Findings: Comparison: February Nasogastric tube remains in place, tip within the region of the stomach, proximal side-port in the region of esophagogastric junction. Pelvis excluded from image. Visualized bowel gas pattern remains unremarkable. Clustered calcifications again noted in abdominal right upper quadrant and right midabdomen, respectively.. IMPRESSION: Nasogastric tube in adequate position No evidence of acute abdominopelvic disease, limited as described, unchanged Right abdominal calcifications likely represent a combination of gallstones and chronic inflammatory pancreatic calcifications. Contrast-enhanced CT scan of the abdomen may be of benefit in further evaluation, as clinically indicated This correlates with [facility] preliminary report.
[2017-02-14] MEDS: Valproic Acid 250mg/5ml Liquid GT SCH ×2 (10:17→22:22)
[2017-02-14] MEDS: ARIPiprazole 10mg tab NG SCH (10:19)
[2017-02-14] MEDS: Depakote 125mg Sprinkles NG SCH ×2 (10:19→22:23)
[2017-02-14] MEDS: Rifaximin 550mg tab NG SCH ×2 (10:19→22:23)
[2017-02-14] MEDS: Propranolol 10mg tab NG SCH ×2 (10:19→18:48)
[2017-02-14 10:35] LABS: ANISOCYTOSIS 1+; BAND NEUTROPHILS % (MANUAL) 0 % (0-8); BASOPHILS % (MANUAL) 0 % (0-2); EOSINOPHILS % (MANUAL) 2 % (0-3); HYPOCHROMASIA 1+; LYMPHOCYTES % (MANUAL) 17 % (20-45); NEUTROPHILS % (MANUAL) 66 % (45-75); PLATELET ESTIMATE ADEQUATE; PLATELET MORPHOLOGY NORMAL; TOTAL CELLS COUNTED 100
[2017-02-14 11:49] VITALS: BP 131/87
--- NOTE | 2017-02-14 11:53 | Diagnostic Imaging Report ---
Indications: Nasogastric tube placement Technique: Portable supine AP abdomen at 2150 Findings: Comparison: 1905 Nasogastric tube has been withdrawn, tip still in the region of the proximal aspect of the stomach, proximal side-port at or above the level of esophagogastric junction. No other change. IMPRESSION: Partial withdrawal of nasogastric tube, recommend advancement 10 cm This correlates with [facility] preliminary report.
--- NOTE | 2017-02-14 13:47 | GI Progress Note ---
Assessment/Plan Problems: (1) Severe malnutrition ICD Codes: E43 - Unspecified severe protein-calorie malnutrition SNOMED: 03321615 (2) Altered mental state ICD Codes: R41.82 - Altered mental status, unspecified SNOMED: 179657412, 879202775 Qualifiers: Qualified Codes: R41.82 - Altered mental status, unspecified (3) Encephalopathy, multifactorial, hepatic/septic/renal (4) Encephalopathy ICD Codes: G93.40 - Encephalopathy, unspecified SNOMED: 77520093, 783681286 (5) Liver cirrhosis ICD Codes: K74.60 - Unspecified cirrhosis of liver SNOMED: 76950021 Qualifiers: Qualified Codes: K74.60 - Unspecified cirrhosis of liver Status: unchanged Status Narrative Discussed with Dr. Gil. Assessment/Plan hep panel negative Increase free water by IV and NGT elevated ammonia >> cont lactulose + Xifaxan reduce lactulose to help Na NGTFs per dietary ppi monitor LFTs fu labs outpatient EGD/colonoscopy Subjective Subjective limited, AMS with agitation Objective Last 24 Hour Vital Signs Date Time Temp Pulse Resp B/P Pulse Ox O2 Delivery O2 Flow Rate FiO2 02/14/17 11:49 96.4 72 22 131/87 99 Room Air 02/14/17 10:19 92 130/77 02/14/17 08:15 97.8 92 19 130/77 98 Room Air 02/14/17 04:43 95.7 95 18 136/80 90 Nasal Cannula 5.0 95 02/14/17 00:01 96.1 75 16 118/69 90 Room Air 75 02/13/17 22:49 95.7 02/13/17 20:03 95.7 75 17 122/80 97 Nasal Cannula 5.0 75 02/13/17 17:58 85 115/79 02/13/17 16:00 96.3 85 18 115/79 96 Nasal Cannula 5.0 Intake and Output 02/13/17 02/14/17 19:00 07:00 Intake Total 865 ml 1640 ml Output Total 300 ml 300 ml Balance 565 ml 1340 ml Free Water 100 ml 200 ml IV Total 670 ml 1200 ml Tube Feeding 95 ml 30 ml Other 210 ml Output Urine Total 300 ml 300 ml # Bowel Movements 2 Laboratory Tests Test 02/14/17 05:30 White Blood Count 7.6 K/UL (4.8-10.8) Red Blood Count 3.43 M/UL (4.20-5.40) L Hemoglobin 11.2 G/DL (12.0-16.0) L Hematocrit 34.2 % (37.0-47.0) L Mean Corpuscular Volume 100 FL (80-99) H Mean Corpuscular Hemoglobin 32.6 PG (27.0-31.0) H Mean Corpuscular Hemoglobin Concent 32.7 G/DL (32.0-36.0) Red Cell Distribution Width 15.4 % (11.6-14.8) H Platelet Count 98 K/UL (150-450) L Mean Platelet Volume 6.2 FL (6.5-10.1) L Neutrophils (%) (Auto) % (45.0-75.0) Lymphocytes (%) (Auto) % (20.0-45.0) Monocytes (%) (Auto) % (1.0-10.0) Eosinophils (%) (Auto) % (0.0-3.0) Basophils (%) (Auto) % (0.0-2.0) Differential Total Cells Counted 100 Neutrophils % (Manual) 66 % (45-75) Lymphocytes % (Manual) 17 % (20-45) L Monocytes % (Manual) 15 % (1-10) H Eosinophils % (Manual) 2 % (0-3) Basophils % (Manual) 0 % (0-2) Band Neutrophils 0 % (0-8) Platelet Estimate Adequate Platelet Morphology Normal Hypochromasia 1+ Anisocytosis 1+ Sodium Level 148 mEQ/L (135-145) H Potassium Level 3.2 mEQ/L (3.4-4.9) L Chloride Level 111 mEQ/L (98-107) H Carbon Dioxide Level 21 mEQ/L (20-30) Anion Gap 16 (5-15) H Blood Urea Nitrogen 57 mg/dL (7-23) H Creatinine 1.3 mg/dL (0.5-0.9) H Estimat Glomerular Filtration Rate 42.8 mL/min (>60) Glucose Level 137 mg/dL (74-106) H Calcium Level 9.1 mg/dL (8.6-10.2) Height (Feet): 5 Height (Inches): 6.00 Weight (Pounds): 130 General Appearance: no apparent distress, agitated Cardiovascular: normal rate Respiratory/Chest: no respiratory distress Abdominal Exam: soft, other - NGT Diamond Smith N.P. February 14, 2017 13:47
[2017-02-14] MEDS ORDERED: KCl 10% 40mEq/30ml liquid NG ONE (14:15)
--- NOTE | 2017-02-14 14:21 | General Progress Note ---
Assessment/Plan Problem List: (1) Liver cirrhosis ICD Codes: K74.60 - Unspecified cirrhosis of liver SNOMED: 59372205 Qualifiers: Qualified Codes: K74.60 - Unspecified cirrhosis of liver (2) Encephalopathy ICD Codes: G93.40 - Encephalopathy, unspecified SNOMED: 74189256, 571791605 (3) UTI (urinary tract infection) ICD Codes: N39.0 - Urinary tract infection, site not specified SNOMED: 68664486 Qualifiers: Qualified Codes: N30.01 - Acute cystitis with hematuria (4) Encephalopathy, multifactorial, hepatic/septic/renal (5) Altered mental state ICD Codes: R41.82 - Altered mental status, unspecified SNOMED: 436522061, 153353531 Qualifiers: Qualified Codes: R41.82 - Altered mental status, unspecified (6) Severe malnutrition ICD Codes: E43 - Unspecified severe protein-calorie malnutrition SNOMED: 49933926 (7) Psychiatric disorder ICD Codes: F99 - Mental disorder, not otherwise specified SNOMED: 86138761, 414576718 Status: unchanged Assessment/Plan ot pt diet ivf psyc neuro gi tx cbc bmp am promise ltach eval Subjective Allergies: Coded Allergies: PENICILLINS (Verified Allergy, Unknown, 02/10/17) All Systems: reviewed and negative except above Subjective 02nc ng sleepy Objective Last 24 Hour Vital Signs Date Time Temp Pulse Resp B/P Pulse Ox O2 Delivery O2 Flow Rate FiO2 02/14/17 11:49 96.4 72 22 131/87 99 Room Air 02/14/17 10:19 92 130/77 02/14/17 08:15 97.8 92 19 130/77 98 Room Air 02/14/17 04:43 95.7 95 18 136/80 90 Nasal Cannula 5.0 95 02/14/17 00:01 96.1 75 16 118/69 90 Room Air 75 02/13/17 22:49 95.7 02/13/17 20:03 95.7 75 17 122/80 97 Nasal Cannula 5.0 75 02/13/17 17:58 85 115/79 02/13/17 16:00 96.3 85 18 115/79 96 Nasal Cannula 5.0 Intake and Output 02/13/17 02/14/17 19:00 07:00 Intake Total 865 ml 1640 ml Output Total 300 ml 300 ml Balance 565 ml 1340 ml Free Water 100 ml 200 ml IV Total 670 ml 1200 ml Tube Feeding 95 ml 30 ml Other 210 ml Output Urine Total 300 ml 300 ml # Bowel Movements 2 Laboratory Tests 02/14/17 05:30: White Blood Count 7.6, Red Blood Count 3.43L, Hemoglobin 11.2L, Hematocrit 34.2L , Mean Corpuscular Volume 100H, Mean Corpuscular Hemoglobin 32.6H, Mean Corpuscular Hemoglobin Concent 32.7, Red Cell Distribution Width 15.4H, Platelet Count 98L, Mean Platelet Volume 6.2L, Neutrophils (%) (Auto) , Lymphocytes (%) (Auto) , Monocytes (%) (Auto) , Eosinophils (%) (Auto) , Basophils (%) (Auto) , Differential Total Cells Counted 100, Neutrophils % ( Manual) 66, Lymphocytes % (Manual) 17L, Monocytes % (Manual) 15H, Eosinophils % (Manual) 2, Basophils % (Manual) 0, Band Neutrophils 0, Platelet Estimate Adequate, Platelet Morphology Normal, Hypochromasia 1+, Anisocytosis 1+, Sodium Level 148H, Potassium Level 3.2L, Chloride Level 111H, Carbon Dioxide Level 21, Anion Gap 16H, Blood Urea Nitrogen 57H, Creatinine 1.3H, Estimat Glomerular Filtration Rate 42.8, Glucose Level 137H, Calcium Level 9.1 02/14/17 13:47: Vancomycin Level Trough [Pending] Height (Feet): 5 Height (Inches): 6.00 Weight (Pounds): 130 General Appearance: lethargic, confused EENT: normal ENT inspection Neck: normal alignment Cardiovascular: normal peripheral pulses, normal rate, regular rhythm Respiratory/Chest: chest wall non-tender, lungs clear, normal breath sounds Abdomen: normal bowel sounds, non tender, soft Extremities: normal inspection Edema: no edema noted Arm (L), no edema noted Arm (R), no edema noted Leg (L), no edema noted Leg (R), no edema noted Pedal (L), no edema noted Pedal (R), no edema noted Generalized Neurologic: motor weakness Skin: normal pigmentation, warm/dry TERE GILES February 14, 2017 14:21
--- NOTE | 2017-02-14 15:57 | Infectious Diseases Prog Note ---
Assessment/Plan Problems: (1) UTI (urinary tract infection) Assessment & Plan: due to methicillin sensitive staph aureus, continue vancomycin dosed by pharmacy for 7 days (2) Encephalopathy, multifactorial, hepatic/septic/renal Assessment & Plan: had elevated ammonia level, continue lactulose, and antibiotics for UTI, neurology is following (3) Liver cirrhosis Assessment & Plan: continue supportive care, avoid hepatotoxic meds, consult GI (4) Altered mental state Assessment & Plan: with agitation and confusion, multifactorial , continue antibiotics, and lactulose.neurology is following Subjective ROS Limited/Unobtainable: Yes Allergies: Coded Allergies: PENICILLINS (Verified Allergy, Unknown, 02/10/17) Subjective she was resting in bed, quiet, and comfortable, had a new NGT placed , still on restrain . afebrile Objective Vital Signs Last 24 Hour Vital Signs Date Time Temp Pulse Resp B/P Pulse Ox O2 Delivery O2 Flow Rate FiO2 02/14/17 11:49 96.4 72 22 131/87 99 Room Air 02/14/17 10:19 92 130/77 02/14/17 08:15 97.8 92 19 130/77 98 Room Air 02/14/17 04:43 95.7 95 18 136/80 90 Nasal Cannula 5.0 95 02/14/17 00:01 96.1 75 16 118/69 90 Room Air 75 02/13/17 22:49 95.7 02/13/17 20:03 95.7 75 17 122/80 97 Nasal Cannula 5.0 75 02/13/17 17:58 85 115/79 02/13/17 16:00 96.3 85 18 115/79 96 Nasal Cannula 5.0 Height (Feet): 5 Height (Inches): 6.00 Weight (Pounds): 130 General Appearance: WD/WN, no acute distress HEENT: normocephalic, atraumatic, anicteric, mucous membranes moist Respiratory/Chest: chest wall non-tender, lungs clear, normal breath sounds, no respiratory distress, no accessory muscle use Cardiovascular: normal peripheral pulses, normal rate, regular rhythm, no gallop/murmur, no JVD Abdomen: normal bowel sounds, soft, non tender, no organomegaly, non distended , no mass Extremities: no cyanosis, no clubbing Skin: no rash, no lesions, no ulcers Laboratory Tests Test 02/14/17 05:30 02/14/17 13:47 White Blood Count 7.6 K/UL (4.8-10.8) Red Blood Count 3.43 M/UL (4.20-5.40) L Hemoglobin 11.2 G/DL (12.0-16.0) L Hematocrit 34.2 % (37.0-47.0) L Mean Corpuscular Volume 100 FL (80-99) H Mean Corpuscular Hemoglobin 32.6 PG (27.0-31.0) H Mean Corpuscular Hemoglobin Concent 32.7 G/DL (32.0-36.0) Red Cell Distribution Width 15.4 % (11.6-14.8) H Platelet Count 98 K/UL (150-450) L Mean Platelet Volume 6.2 FL (6.5-10.1) L Neutrophils (%) (Auto) % (45.0-75.0) Lymphocytes (%) (Auto) % (20.0-45.0) Monocytes (%) (Auto) % (1.0-10.0) Eosinophils (%) (Auto) % (0.0-3.0) Basophils (%) (Auto) % (0.0-2.0) Differential Total Cells Counted 100 Neutrophils % (Manual) 66 % (45-75) Lymphocytes % (Manual) 17 % (20-45) L Monocytes % (Manual) 15 % (1-10) H Eosinophils % (Manual) 2 % (0-3) Basophils % (Manual) 0 % (0-2) Band Neutrophils 0 % (0-8) Platelet Estimate Adequate Platelet Morphology Normal Hypochromasia 1+ Anisocytosis 1+ Sodium Level 148 mEQ/L (135-145) H Potassium Level 3.2 mEQ/L (3.4-4.9) L Chloride Level 111 mEQ/L (98-107) H Carbon Dioxide Level 21 mEQ/L (20-30) Anion Gap 16 (5-15) H Blood Urea Nitrogen 57 mg/dL (7-23) H Creatinine 1.3 mg/dL (0.5-0.9) H Estimat Glomerular Filtration Rate 42.8 mL/min (>60) Glucose Level 137 mg/dL (74-106) H Calcium Level 9.1 mg/dL (8.6-10.2) Vancomycin Level Trough 22.7 ug/mL (5.0-12.0) H Current Medications Medications (Trade) Dose Ordered Sig/Gill Route PRN Reason Start Time Stop Time Status Last Admin Dose Admin Al Hydroxide/Mg Hydroxide (Mylanta II) 30 ml Q6H PRN NG dyspepsia 02/13/17 10:36 03/15/17 00:29 Aripiprazole (Abilify) 10 mg DAILY NG 02/13/17 10:36 03/15/17 08:59 02/14/17 10:19 Dextrose (D5W 1000ml) 1,000 ml @ 100 mls/hr Q10H IV 02/13/17 16:00 03/15/17 15:59 02/14/17 02:04 Dextrose (Dextrose 50%) STAT PRN IV Hypoglycemia 02/13/17 12:30 03/15/17 12:29 Divalproex Sodium 500 mg 500 mg EVERY 12 HOURS NG 02/13/17 21:00 03/15/17 20:59 02/14/17 10:19 Haloperidol Lactate (Haldol) 5 mg Q4H PRN IM Agitation 02/13/17 01:00 03/15/17 00:59 02/14/17 04:21 Ibuprofen (Motrin) 600 mg Q8H PRN ORAL For Pain 02/13/17 00:30 03/15/17 00:29 02/13/17 16:29 Lactulose (Cephulac) 30 gm EVERY 8 HOURS NG 02/13/17 22:00 03/15/17 21:59 02/14/17 13:24 Lansoprazole (Prevacid) 30 mg ACBREAKFAST NG 02/13/17 10:38 03/15/17 06:29 02/14/17 05:43 Lorazepam (Ativan) 1 mg Q4H NG 02/13/17 10:45 02/20/17 00:59 02/14/17 14:52 Morphine Sulfate (Morphine Sulfate) 2 mg Q4H PRN IVP For Pain 02/13/17 17:30 02/20/17 17:29 02/14/17 08:41 Ondansetron HCl (Zofran) 4 mg Q6H PRN IVP Nausea & Vomiting 02/13/17 00:30 03/15/17 00:29 Polyethylene Glycol (Miralax) 17 gm HSPRN PRN NG Constipation 02/13/17 21:00 03/15/17 20:59 Propranolol HCl (Inderal) 10 mg BID NG 02/13/17 10:50 03/15/17 08:59 02/14/17 10:19 Quetiapine Fumarate (SEROquel) 100 mg QHS NG 02/13/17 21:00 03/15/17 20:59 Rifaximin (Xifaxan) 550 mg EVERY 12 HOURS NG 02/13/17 10:51 02/20/17 08:59 02/14/17 10:19 Valproic Acid (Depakene) 500 mg Q12H GT 02/13/17 09:00 03/15/17 08:59 02/14/17 10:17 Vancomycin HCl (Vanco rx to dose) 1 ea DAILY PRN MISC .Per Rx Protocol 02/13/17 09:00 03/15/17 08:59 Pura Klein M.D. February 14, 2017 15:57
[2017-02-14 16:15] VITALS: BP 124/54
--- NOTE | 2017-02-14 17:39 | Consultation ---
DATE OF CONSULTATION: 02/14/2017 ORTHOPEDIC CONSULTATION CONSULTING PHYSICIAN: Kevin Barriga M.D. REQUESTING PHYSICIAN: Adolfo Busch D.O. CHIEF COMPLAINT: Right knee pain. HISTORY OF PRESENT ILLNESS: The patient is a 51-year-old female with a complicated medical history. [facility]. She was admitted for multiple issues. Orthopedic consultation was obtained regarding the right knee. Past Medical History: Significant for liver cirrhosis, breast cancer, osteoarthritis, and anemia. PAST SURGICAL HISTORY: Left breast mastectomy. MEDICATIONS: Reviewed per intake chart. PHYSICAL EXAMINATION: The patient has a nasogastric tube in place. She is alert, but she is not alert to place or location. She is moaning. It is impossible to get an appropriate history out of her. Examination of the patient's right knee shows moderate swelling. There is mild effusion. Range of motion is -15 to 90 degrees. Posterior calf is soft. Peripheral vascular exam is normal. DIAGNOSTIC DATA: Imaging studies show severe right knee osteoarthritis. ASSESSMENT: Right knee arthritis. DISCUSSION: At this point, she has pretty advanced osteoarthritis. Once she is medically optimized and better positioned, then the ultimate treatment for her is a total knee replacement. In the meantime, what I recommend is appropriate medical management. I am not sure if a cortisone injection would provide enough relief for the knee symptoms to warrant it. We will recommend some anti-inflammatories and may be a hinge brace. Kevin Barriga M.D. DR: DAVID JOB#: [id number] CC: YULIANA
--- NOTE | 2017-02-14 18:59 | Nephrology Progress Note ---
Assessment/Plan Problem List: (1) SHERIE (acute kidney injury) (2) Liver cirrhosis (3) UTI (urinary tract infection) (4) Encephalopathy, multifactorial, hepatic/septic/renal (5) Altered mental state (6) Psychiatric disorder Plan Continue IVF d5w@100cc/hr Increase Free water flush Monitor BUN/cr Sodium improved Replace K Monitor I&O Monitor lytes Continue tube feeding Abx per ID AM labs Subjective ROS Limited/Unobtainable: Yes Subjective In bed, disoriented, agitated, sitter at beside. Objective Objective Last 24 Hour Vital Signs Date Time Temp Pulse Resp B/P Pulse Ox O2 Delivery O2 Flow Rate FiO2 02/14/17 16:15 97.9 76 20 124/54 99 Room Air 02/14/17 11:49 96.4 72 22 131/87 99 Room Air 02/14/17 10:19 92 130/77 02/14/17 08:15 97.8 92 19 130/77 98 Room Air 02/14/17 04:43 95.7 95 18 136/80 90 Nasal Cannula 5.0 95 02/14/17 00:01 96.1 75 16 118/69 90 Room Air 75 02/13/17 22:49 95.7 02/13/17 20:03 95.7 75 17 122/80 97 Nasal Cannula 5.0 75 Intake and Output 02/13/17 02/14/17 19:00 07:00 Intake Total 865 ml 1640 ml Output Total 300 ml 300 ml Balance 565 ml 1340 ml Free Water 100 ml 200 ml IV Total 670 ml 1200 ml Tube Feeding 95 ml 30 ml Other 210 ml Output Urine Total 300 ml 300 ml # Bowel Movements 2 Laboratory Tests 02/14/17 05:30: White Blood Count 7.6, Red Blood Count 3.43L, Hemoglobin 11.2L, Hematocrit 34.2L , Mean Corpuscular Volume 100H, Mean Corpuscular Hemoglobin 32.6H, Mean Corpuscular Hemoglobin Concent 32.7, Red Cell Distribution Width 15.4H, Platelet Count 98L, Mean Platelet Volume 6.2L, Neutrophils (%) (Auto) , Lymphocytes (%) (Auto) , Monocytes (%) (Auto) , Eosinophils (%) (Auto) , Basophils (%) (Auto) , Differential Total Cells Counted 100, Neutrophils % ( Manual) 66, Lymphocytes % (Manual) 17L, Monocytes % (Manual) 15H, Eosinophils % (Manual) 2, Basophils % (Manual) 0, Band Neutrophils 0, Platelet Estimate Adequate, Platelet Morphology Normal, Hypochromasia 1+, Anisocytosis 1+, Sodium Level 148H, Potassium Level 3.2L, Chloride Level 111H, Carbon Dioxide Level 21, Anion Gap 16H, Blood Urea Nitrogen 57H, Creatinine 1.3H, Estimat Glomerular Filtration Rate 42.8, Glucose Level 137H, Calcium Level 9.1 02/14/17 13:47: Vancomycin Level Trough 22.7H Height (Feet): 5 Height (Inches): 6.00 Weight (Pounds): 130 General Appearance: agitated EENT: normal ENT inspection Neck: normal alignment, supple Cardiovascular: regular rhythm Respiratory/Chest: normal breath sounds, no respiratory distress Abdomen: soft Extremities: non-tender, normal inspection Neurologic: disoriented Madeline Fischer N.P. February 14, 2017 18:59
[2017-02-14 20:00] VITALS: BP 121/79
--- NOTE | 2017-02-14 22:49 | Pulmonology Progress Note ---
Assessment/Plan Problems: (1) Encephalopathy (2) Liver cirrhosis (3) UTI (urinary tract infection) (4) Encephalopathy, multifactorial, hepatic/septic/renal (5) Psychiatric disorder Assessment/Plan still agitated Haldol prn continue IV fluids f/u electrolytes keep in teli. Subjective ROS Limited/Unobtainable: Yes Constitutional: Reports: anorexia, fatigue Respiratory: Reports: shortness of breath Genitourinary: Reports: dysuria, frequency, hematuria, urgency, vaginal bleed/ discharge Neurologic: Reports: confusion, weakness Allergies: Coded Allergies: PENICILLINS (Verified Allergy, Unknown, 02/10/17) Objective Last 24 Hour Vital Signs Date Time Temp Pulse Resp B/P Pulse Ox O2 Delivery O2 Flow Rate FiO2 02/14/17 20:00 97.9 69 20 121/79 91 Room Air 02/14/17 18:48 76 124/54 02/14/17 16:15 97.9 76 20 124/54 99 Room Air 02/14/17 11:49 96.4 72 22 131/87 99 Room Air 02/14/17 10:19 92 130/77 02/14/17 08:15 97.8 92 19 130/77 98 Room Air 02/14/17 04:43 95.7 95 18 136/80 90 Nasal Cannula 5.0 95 02/14/17 00:01 96.1 75 16 118/69 90 Room Air 75 Intake and Output 02/13/17 02/14/17 19:00 07:00 Intake Total 865 ml 1640 ml Output Total 300 ml 300 ml Balance 565 ml 1340 ml Free Water 100 ml 200 ml IV Total 670 ml 1200 ml Tube Feeding 95 ml 30 ml Other 210 ml Output Urine Total 300 ml 300 ml # Bowel Movements 2 General Appearance: no acute distress HEENT: normocephalic, atraumatic, PERRL Respiratory/Chest: chest wall non-tender, decreased breath sounds, accessory muscle use, rhonchi, pleural rub Breasts: no masses Cardiovascular: normal peripheral pulses, normal rate, regular rhythm, no JVD Abdomen: hypoactive bowel sounds, distended, guarding, tender, rebound tenderness, hepatomegaly Genitourinary: normal external genitalia Extremities: other - bilateral moderate edema lower extermities Skin: rash, lesions Neurologic/Psychiatric: refractory mixer II-XII grossly normal, no motor/sensory deficits Laboratory Tests 02/14/17 05:30: White Blood Count 7.6, Red Blood Count 3.43L, Hemoglobin 11.2L, Hematocrit 34.2L , Mean Corpuscular Volume 100H, Mean Corpuscular Hemoglobin 32.6H, Mean Corpuscular Hemoglobin Concent 32.7, Red Cell Distribution Width 15.4H, Platelet Count 98L, Mean Platelet Volume 6.2L, Neutrophils (%) (Auto) , Lymphocytes (%) (Auto) , Monocytes (%) (Auto) , Eosinophils (%) (Auto) , Basophils (%) (Auto) , Differential Total Cells Counted 100, Neutrophils % ( Manual) 66, Lymphocytes % (Manual) 17L, Monocytes % (Manual) 15H, Eosinophils % (Manual) 2, Basophils % (Manual) 0, Band Neutrophils 0, Platelet Estimate Adequate, Platelet Morphology Normal, Hypochromasia 1+, Anisocytosis 1+, Sodium Level 148H, Potassium Level 3.2L, Chloride Level 111H, Carbon Dioxide Level 21, Anion Gap 16H, Blood Urea Nitrogen 57H, Creatinine 1.3H, Estimat Glomerular Filtration Rate 42.8, Glucose Level 137H, Calcium Level 9.1 02/14/17 13:47: Vancomycin Level Trough 22.7H Current Medications Medications (Trade) Dose Ordered Sig/Gill Route PRN Reason Start Time Stop Time Status Last Admin Dose Admin Al Hydroxide/Mg Hydroxide (Mylanta II) 30 ml Q6H PRN NG dyspepsia 02/13/17 10:36 03/15/17 00:29 Aripiprazole (Abilify) 10 mg DAILY NG 02/13/17 10:36 03/15/17 08:59 02/14/17 10:19 Dextrose (D5W 1000ml) 1,000 ml @ 100 mls/hr Q10H IV 02/13/17 16:00 03/15/17 15:59 02/14/17 18:50 Dextrose (Dextrose 50%) STAT PRN IV Hypoglycemia 02/13/17 12:30 03/15/17 12:29 Divalproex Sodium 500 mg 500 mg EVERY 12 HOURS NG 02/13/17 21:00 03/15/17 20:59 02/14/17 22:23 Haloperidol Lactate (Haldol) 5 mg Q4H PRN IM Agitation 02/13/17 01:00 03/15/17 00:59 02/14/17 04:21 Ibuprofen (Motrin) 600 mg Q8H PRN ORAL For Pain 02/13/17 00:30 03/15/17 00:29 02/13/17 16:29 Lactulose (Cephulac) 30 gm EVERY 8 HOURS NG 02/13/17 22:00 03/15/17 21:59 02/14/17 22:21 Lansoprazole (Prevacid) 30 mg ACBREAKFAST NG 02/13/17 10:38 03/15/17 06:29 02/14/17 05:43 Lorazepam (Ativan) 1 mg Q4H NG 02/13/17 10:45 02/20/17 00:59 02/14/17 22:23 Morphine Sulfate (Morphine Sulfate) 2 mg Q4H PRN IVP For Pain 02/13/17 17:30 02/20/17 17:29 02/14/17 08:41 Ondansetron HCl (Zofran) 4 mg Q6H PRN IVP Nausea & Vomiting 02/13/17 00:30 03/15/17 00:29 Polyethylene Glycol (Miralax) 17 gm HSPRN PRN NG Constipation 02/13/17 21:00 03/15/17 20:59 Propranolol HCl (Inderal) 10 mg BID NG 02/13/17 10:50 03/15/17 08:59 02/14/17 18:48 Quetiapine Fumarate 100 mg 100 mg QHS NG 02/13/17 21:00 03/15/17 20:59 02/14/17 22:22 Rifaximin (Xifaxan) 550 mg EVERY 12 HOURS NG 02/13/17 10:51 02/20/17 08:59 02/14/17 22:23 Valproic Acid (Depakene) 500 mg Q12H GT 02/13/17 09:00 03/15/17 08:59 02/14/17 22:22 Vancomycin HCl (Vanco rx to dose) 1 ea DAILY PRN MISC .Per Rx Protocol 02/13/17 09:00 03/15/17 08:59 Vancomycin HCl/ Dextrose (Vancomycin/D5W) 275 ml @ 183.708 mls/hr Q24H IVPB 02/13/17 00:00 02/18/17 00:00 02/14/17 00:03 MANFRED YING February 14, 2017 22:49
[2017-02-15] VITALS (20 sets, daily range): BP systolic 42–125; BP diastolic 27–71
[2017-02-15] MEDS: LORazepam 1mg tab NG SCH ×6 (02:21→21:00)
[2017-02-15] MEDS: Lactulose 20gm/30ml UDC NG SCH ×4 (06:11→21:53)
[2017-02-15 07:26] LABS: MEAN CORPUSCULAR HEMOGLOBIN 32.9 PG (27.0-31.0); MEAN CORPUSCULAR HGB CONC 33.3 G/DL (32.0-36.0); MEAN CORPUSCULAR VOLUME 99 FL (80-99); MEAN PLATELET VOLUME 7.9 FL (6.5-10.1); PLATELET COUNT 99 K/UL (150-450); RED BLOOD COUNT 2.76 M/UL (4.20-5.40); RED CELL DISTRIBUTION WIDTH 15.8 % (11.6-14.8); WHITE BLOOD COUNT 7.5 K/UL (4.8-10.8)
[2017-02-15 07:38] LABS: ALBUMIN/GLOBULIN RATIO 0.3 (1.0-2.7); CALCIUM 8.8 mg/dL (8.6-10.2); CREATININE 1.4 mg/dL (0.5-0.9); GLOMERULAR FILTRATION RATE 39.3 mL/min (>60); POTASSIUM 4.8 mEQ/L (3.4-4.9); TOTAL PROTEIN 7.5 g/dL (6.6-8.7)
[2017-02-15 07:52] LABS: BILIRUBIN,DIRECT 0.5 mg/dL (0.1-0.3)
--- NOTE | 2017-02-15 09:45 | Diagnostic Imaging Report ---
Indication: NG tube Comparison: 02/13/17 Single view of the abdomen obtained NG tube is in the stomach in good position. There is no change compared to the prior study. Impression: NG tube satisfactory in position
--- NOTE | 2017-02-15 10:02 | GI Progress Note ---
Assessment/Plan Problems: (1) Severe malnutrition ICD Codes: E43 - Unspecified severe protein-calorie malnutrition SNOMED: 14636758 (2) Altered mental state ICD Codes: R41.82 - Altered mental status, unspecified SNOMED: 467687023, 207033126 Qualifiers: Qualified Codes: R41.82 - Altered mental status, unspecified (3) Encephalopathy, multifactorial, hepatic/septic/renal (4) Encephalopathy ICD Codes: G93.40 - Encephalopathy, unspecified SNOMED: 17245987, 854052969 (5) Liver cirrhosis ICD Codes: K74.60 - Unspecified cirrhosis of liver SNOMED: 75828616 Qualifiers: Qualified Codes: K74.60 - Unspecified cirrhosis of liver Status: not improved, unchanged Status Narrative Discussed with Dr. Gil. Assessment/Plan hep panel negative Increase free water by IV and NGT elevated ammonia >> cont lactulose + Xifaxan reduce lactulose to help Na NGTFs per dietary ppi monitor LFTs fu labs outpatient EGD/colonoscopy Subjective Subjective limited, calm Objective Last 24 Hour Vital Signs Date Time Temp Pulse Resp B/P Pulse Ox O2 Delivery O2 Flow Rate FiO2 02/15/17 07:49 98.4 63 20 119/65 92 Room Air 02/15/17 03:57 73 20 115/67 92 Room Air 02/15/17 00:00 97.9 79 18 125/61 92 Room Air 02/14/17 20:00 97.9 69 20 121/79 91 Room Air 02/14/17 18:48 76 124/54 02/14/17 16:15 97.9 76 20 124/54 99 Room Air 02/14/17 11:49 96.4 72 22 131/87 99 Room Air 02/14/17 10:19 92 130/77 Intake and Output 02/14/17 02/15/17 19:00 07:00 Intake Total 1110 ml 1595.000 ml Output Total 400 ml 700 ml Balance 710 ml 895.000 ml Free Water 150 ml 150 ml IV Total 600 ml 1175.000 ml Tube Feeding 360 ml 270 ml Output Urine Total 400 ml 700 ml # Voids 1 Laboratory Tests Test 02/14/17 13:47 02/15/17 05:20 Vancomycin Level Trough 22.7 ug/mL (5.0-12.0) H White Blood Count 7.5 K/UL (4.8-10.8) Red Blood Count 2.76 M/UL (4.20-5.40) L Hemoglobin 9.1 G/DL (12.0-16.0) L Hematocrit 27.2 % (37.0-47.0) L Mean Corpuscular Volume 99 FL (80-99) Mean Corpuscular Hemoglobin 32.9 PG (27.0-31.0) H Mean Corpuscular Hemoglobin Concent 33.3 G/DL (32.0-36.0) Red Cell Distribution Width 15.8 % (11.6-14.8) H Platelet Count 99 K/UL (150-450) L Mean Platelet Volume 7.9 FL (6.5-10.1) Neutrophils (%) (Auto) % (45.0-75.0) Lymphocytes (%) (Auto) % (20.0-45.0) Monocytes (%) (Auto) % (1.0-10.0) Eosinophils (%) (Auto) % (0.0-3.0) Basophils (%) (Auto) % (0.0-2.0) Neutrophils % (Manual) Pending Lymphocytes % (Manual) Pending Platelet Estimate Pending Platelet Morphology Pending Sodium Level 143 mEQ/L (135-145) Potassium Level 4.8 mEQ/L (3.4-4.9) Chloride Level 104 mEQ/L (98-107) Carbon Dioxide Level 20 mEQ/L (20-30) Anion Gap 19 (5-15) H Blood Urea Nitrogen 50 mg/dL (7-23) H Creatinine 1.4 mg/dL (0.5-0.9) H Estimat Glomerular Filtration Rate 39.3 mL/min (>60) Glucose Level 126 mg/dL (74-106) H Calcium Level 8.8 mg/dL (8.6-10.2) Total Bilirubin 1.9 mg/dL (0.0-1.2) H Direct Bilirubin 0.5 mg/dL (0.1-0.3) H Aspartate Amino Transf (AST/SGOT) 70 U/L (5-40) H Alanine Aminotransferase (ALT/SGPT) 21 U/L (3-33) Alkaline Phosphatase 134 U/L (35-104) H Total Protein 7.5 g/dL (6.6-8.7) Albumin 2.0 g/dL (3.5-5.2) L Globulin 5.5 g/dL Albumin/Globulin Ratio 0.3 (1.0-2.7) L Height (Feet): 5 Height (Inches): 6.00 Weight (Pounds): 130 General Appearance: no apparent distress, alert, other - calm, resting Cardiovascular: normal rate Respiratory/Chest: normal breath sounds, no respiratory distress Abdominal Exam: normal bowel sounds, non tender, soft, other - NGT Genitourinary/Rectal: enlarged prostate Diamond Smith N.P. February 15, 2017 10:02
[2017-02-15 10:08] LABS: ANISOCYTOSIS 1+; BAND NEUTROPHILS % (MANUAL) 0 % (0-8); BASOPHILS % (MANUAL) 0 % (0-2); EOSINOPHILS % (MANUAL) 2 % (0-3); HYPOCHROMASIA 2+; LYMPHOCYTES % (MANUAL) 21 % (20-45); NEUTROPHILS % (MANUAL) 61 % (45-75); PLATELET ESTIMATE DECREASED; PLATELET MORPHOLOGY NORMAL; TOTAL CELLS COUNTED 100
[2017-02-15] MEDS: Valproic Acid 250mg/5ml Liquid GT SCH ×3 (10:12→21:46)
[2017-02-15] MEDS: ARIPiprazole 10mg tab NG SCH (10:12)
[2017-02-15] MEDS: Propranolol 10mg tab NG SCH ×2 (10:12→18:00)
[2017-02-15] MEDS: Rifaximin 550mg tab NG SCH ×3 (10:12→21:45)
[2017-02-15] MEDS: Depakote 125mg Sprinkles NG SCH ×2 (10:13→21:00)
--- NOTE | 2017-02-15 14:43 | General Progress Note ---
Assessment/Plan Problem List: (1) Liver cirrhosis ICD Codes: K74.60 - Unspecified cirrhosis of liver SNOMED: 08602111 Qualifiers: Qualified Codes: K74.60 - Unspecified cirrhosis of liver (2) Encephalopathy ICD Codes: G93.40 - Encephalopathy, unspecified SNOMED: 92938876, 230160708 (3) UTI (urinary tract infection) ICD Codes: N39.0 - Urinary tract infection, site not specified SNOMED: 99904229 Qualifiers: Qualified Codes: N30.01 - Acute cystitis with hematuria (4) Encephalopathy, multifactorial, hepatic/septic/renal (5) Altered mental state ICD Codes: R41.82 - Altered mental status, unspecified SNOMED: 047809899, 964470942 Qualifiers: Qualified Codes: R41.82 - Altered mental status, unspecified (6) Severe malnutrition ICD Codes: E43 - Unspecified severe protein-calorie malnutrition SNOMED: 16982364 (7) Psychiatric disorder ICD Codes: F99 - Mental disorder, not otherwise specified SNOMED: 79136949, 744937523 Status: stable, unchanged Assessment/Plan ot pt diet ivf psyc neuro gi tx cbc bmp am promise ltach transfer Subjective Constitutional: Reports: weakness Allergies: Coded Allergies: PENICILLINS (Verified Allergy, Unknown, 02/10/17) All Systems: reviewed and negative except above Subjective 02nc ng sleepy Objective Last 24 Hour Vital Signs Date Time Temp Pulse Resp B/P Pulse Ox O2 Delivery O2 Flow Rate FiO2 02/15/17 12:06 97.2 61 20 101/51 92 Room Air 02/15/17 11:45 95.5 59 13 89 Room Air 02/15/17 11:44 95.5 59 13 89 02/15/17 10:12 63 119/65 02/15/17 07:49 98.4 63 20 119/65 92 Room Air 02/15/17 03:57 73 20 115/67 92 Room Air 02/15/17 00:00 97.9 79 18 125/61 92 Room Air 02/14/17 20:00 97.9 69 20 121/79 91 Room Air 02/14/17 18:48 76 124/54 02/14/17 16:15 97.9 76 20 124/54 99 Room Air Intake and Output 02/14/17 02/15/17 19:00 07:00 Intake Total 1110 ml 1595.000 ml Output Total 400 ml 700 ml Balance 710 ml 895.000 ml Free Water 150 ml 150 ml IV Total 600 ml 1175.000 ml Tube Feeding 360 ml 270 ml Output Urine Total 400 ml 700 ml # Voids 1 Laboratory Tests 02/15/17 05:20: White Blood Count 7.5, Red Blood Count 2.76L, Hemoglobin 9.1L, Hematocrit 27.2L , Mean Corpuscular Volume 99, Mean Corpuscular Hemoglobin 32.9H, Mean Corpuscular Hemoglobin Concent 33.3, Red Cell Distribution Width 15.8H, Platelet Count 99L, Mean Platelet Volume 7.9, Neutrophils (%) (Auto) , Lymphocytes (%) (Auto) , Monocytes (%) (Auto) , Eosinophils (%) (Auto) , Basophils (%) (Auto) , Differential Total Cells Counted 100, Neutrophils % ( Manual) 61, Lymphocytes % (Manual) 21, Monocytes % (Manual) 16H, Eosinophils % ( Manual) 2, Basophils % (Manual) 0, Band Neutrophils 0, Platelet Estimate DecreasedL, Platelet Morphology Normal, Hypochromasia 2+, Anisocytosis 1+, Sodium Level 143, Potassium Level 4.8, Chloride Level 104, Carbon Dioxide Level 20, Anion Gap 19H, Blood Urea Nitrogen 50H, Creatinine 1.4H, Estimat Glomerular Filtration Rate 39.3, Glucose Level 126H, Calcium Level 8.8, Total Bilirubin 1.9H, Direct Bilirubin 0.5H, Aspartate Amino Transf (AST/SGOT) 70H, Alanine Aminotransferase (ALT/SGPT) 21, Alkaline Phosphatase 134H, Total Protein 7.5, Albumin 2.0L, Globulin 5.5, Albumin/Globulin Ratio 0.3L Height (Feet): 5 Height (Inches): 6.00 Weight (Pounds): 130 General Appearance: lethargic EENT: normal ENT inspection Neck: normal alignment Cardiovascular: normal peripheral pulses, normal rate, regular rhythm Respiratory/Chest: chest wall non-tender, lungs clear, normal breath sounds Abdomen: normal bowel sounds, non tender, soft Extremities: normal inspection Edema: no edema noted Arm (L), no edema noted Arm (R), no edema noted Leg (L), no edema noted Leg (R), no edema noted Pedal (L), no edema noted Pedal (R), no edema noted Generalized Neurologic: motor weakness Skin: normal pigmentation, warm/dry TERE GILES February 15, 2017 14:43
[2017-02-15] MEDS ORDERED: QUETIAPINE FUMA50 MG NG (15:28)
[2017-02-15] MEDS ORDERED: LACTULOSE10 GM/155 NG (15:28)
[2017-02-15] MEDS ORDERED: QUETIAPINE FUM300 MG NG (15:29)
[2017-02-15] MEDS ORDERED: MIRALAX17 G2 ORAL (15:29)
[2017-02-15] MEDS ORDERED: DEPAKOTE SPRIN125 MG NG (15:29)
[2017-02-15] MEDS ORDERED: MORPHINE 22 MG/1 ML IV (15:30)
[2017-02-15] MEDS ORDERED: XIFAXAN550 MG NG (15:32)
[2017-02-15] MEDS ORDERED: PROPRANOLOL HCL10 MG NG (15:32)
[2017-02-15] MEDS ORDERED: ATIVAN1 MG NG (15:33)
[2017-02-15] MEDS ORDERED: PREVACID30 M2 NG (15:34)
[2017-02-15] MEDS ORDERED: ABILIFY10 MG NG (15:34)
[2017-02-15] MEDS ORDERED: MYLANTA30 M1 NG (15:35)
[2017-02-15] MEDS ORDERED: VALPROIC ACID250 MG NGT (15:36)
[2017-02-15] MEDS ORDERED: HALOPERIDOL1 MG ORAL (15:37)
[2017-02-15] MEDS ORDERED: VANCOMYCIN1 GM/2502 IVPB (15:37)
[2017-02-15] MEDS ORDERED: ZOFRAN 4 MG4 MG/2 ML IV (15:38)
[2017-02-15] MEDS ORDERED: IBUPROFEN600 MG ORAL (15:38)
--- NOTE | 2017-02-15 15:53 | Infectious Diseases Prog Note ---
Assessment/Plan Problems: (1) UTI (urinary tract infection) Assessment & Plan: due to methicillin sensitive staph aureus, continue vancomycin dosed by pharmacy for 7 days (2) Encephalopathy, multifactorial, hepatic/septic/renal Assessment & Plan: had elevated ammonia level, continue lactulose, and antibiotics for UTI, neurology is following (3) Liver cirrhosis Assessment & Plan: with negative hepatitis panel, continue supportive care, avoid hepatotoxic meds, consult GI (4) Altered mental state Assessment & Plan: with agitation and confusion, multifactorial , continue antibiotics, and lactulose.neurology is following Subjective ROS Limited/Unobtainable: Yes Allergies: Coded Allergies: PENICILLINS (Verified Allergy, Unknown, 02/10/17) Subjective she was quiet, and comfortable, still on restrain . afebrile, dosen't follow commands Objective Vital Signs Last 24 Hour Vital Signs Date Time Temp Pulse Resp B/P Pulse Ox O2 Delivery O2 Flow Rate FiO2 02/15/17 12:06 97.2 61 20 101/51 92 Room Air 02/15/17 11:45 95.5 59 13 89 Room Air 02/15/17 11:44 95.5 59 13 89 02/15/17 10:12 63 119/65 02/15/17 07:49 98.4 63 20 119/65 92 Room Air 02/15/17 03:57 73 20 115/67 92 Room Air 02/15/17 00:00 97.9 79 18 125/61 92 Room Air 02/14/17 20:00 97.9 69 20 121/79 91 Room Air 02/14/17 18:48 76 124/54 02/14/17 16:15 97.9 76 20 124/54 99 Room Air Height (Feet): 5 Height (Inches): 6.00 Weight (Pounds): 130 General Appearance: WD/WN, no acute distress HEENT: normocephalic, atraumatic, anicteric, mucous membranes moist Respiratory/Chest: chest wall non-tender, lungs clear, normal breath sounds, no respiratory distress, no accessory muscle use Cardiovascular: normal peripheral pulses, normal rate, regular rhythm, no gallop/murmur, no JVD Abdomen: normal bowel sounds, soft, non tender, no organomegaly, non distended , no mass Extremities: no cyanosis, no clubbing Skin: no rash, no lesions, no ulcers Laboratory Tests Test 02/15/17 05:20 White Blood Count 7.5 K/UL (4.8-10.8) Red Blood Count 2.76 M/UL (4.20-5.40) L Hemoglobin 9.1 G/DL (12.0-16.0) L Hematocrit 27.2 % (37.0-47.0) L Mean Corpuscular Volume 99 FL (80-99) Mean Corpuscular Hemoglobin 32.9 PG (27.0-31.0) H Mean Corpuscular Hemoglobin Concent 33.3 G/DL (32.0-36.0) Red Cell Distribution Width 15.8 % (11.6-14.8) H Platelet Count 99 K/UL (150-450) L Mean Platelet Volume 7.9 FL (6.5-10.1) Neutrophils (%) (Auto) % (45.0-75.0) Lymphocytes (%) (Auto) % (20.0-45.0) Monocytes (%) (Auto) % (1.0-10.0) Eosinophils (%) (Auto) % (0.0-3.0) Basophils (%) (Auto) % (0.0-2.0) Differential Total Cells Counted 100 Neutrophils % (Manual) 61 % (45-75) Lymphocytes % (Manual) 21 % (20-45) Monocytes % (Manual) 16 % (1-10) H Eosinophils % (Manual) 2 % (0-3) Basophils % (Manual) 0 % (0-2) Band Neutrophils 0 % (0-8) Platelet Estimate Decreased L Platelet Morphology Normal Hypochromasia 2+ Anisocytosis 1+ Sodium Level 143 mEQ/L (135-145) Potassium Level 4.8 mEQ/L (3.4-4.9) Chloride Level 104 mEQ/L (98-107) Carbon Dioxide Level 20 mEQ/L (20-30) Anion Gap 19 (5-15) H Blood Urea Nitrogen 50 mg/dL (7-23) H Creatinine 1.4 mg/dL (0.5-0.9) H Estimat Glomerular Filtration Rate 39.3 mL/min (>60) Glucose Level 126 mg/dL (74-106) H Calcium Level 8.8 mg/dL (8.6-10.2) Total Bilirubin 1.9 mg/dL (0.0-1.2) H Direct Bilirubin 0.5 mg/dL (0.1-0.3) H Aspartate Amino Transf (AST/SGOT) 70 U/L (5-40) H Alanine Aminotransferase (ALT/SGPT) 21 U/L (3-33) Alkaline Phosphatase 134 U/L (35-104) H Total Protein 7.5 g/dL (6.6-8.7) Albumin 2.0 g/dL (3.5-5.2) L Globulin 5.5 g/dL Albumin/Globulin Ratio 0.3 (1.0-2.7) L Current Medications Medications (Trade) Dose Ordered Sig/Gill Route PRN Reason Start Time Stop Time Status Last Admin Dose Admin Al Hydroxide/Mg Hydroxide (Mylanta II) 30 ml Q6H PRN NG dyspepsia 02/13/17 10:36 03/15/17 00:29 Aripiprazole (Abilify) 10 mg DAILY NG 02/13/17 10:36 03/15/17 08:59 02/15/17 10:12 Dextrose (D5W 1000ml) 1,000 ml @ 100 mls/hr Q10H IV 02/13/17 16:00 03/15/17 15:59 02/15/17 06:22 Dextrose (Dextrose 50%) STAT PRN IV Hypoglycemia 02/13/17 12:30 03/15/17 12:29 Divalproex Sodium 500 mg 500 mg EVERY 12 HOURS NG 02/13/17 21:00 03/15/17 20:59 02/15/17 10:13 Haloperidol Lactate (Haldol) 5 mg Q4H PRN IM Agitation 02/13/17 01:00 03/15/17 00:59 02/14/17 04:21 Ibuprofen (Motrin) 600 mg Q8H PRN ORAL For Pain 02/13/17 00:30 03/15/17 00:29 02/13/17 16:29 Lactulose (Cephulac) 30 gm EVERY 8 HOURS NG 02/13/17 22:00 03/15/17 21:59 02/15/17 14:44 Lansoprazole (Prevacid) 30 mg ACBREAKFAST NG 02/13/17 10:38 03/15/17 06:29 02/15/17 06:11 Lorazepam (Ativan) 1 mg Q4H NG 02/13/17 10:45 02/20/17 00:59 02/15/17 10:13 Morphine Sulfate (Morphine Sulfate) 2 mg Q4H PRN IVP For Pain 02/13/17 17:30 02/20/17 17:29 02/14/17 08:41 Ondansetron HCl (Zofran) 4 mg Q6H PRN IVP Nausea & Vomiting 02/13/17 00:30 03/15/17 00:29 Polyethylene Glycol (Miralax) 17 gm HSPRN PRN NG Constipation 02/13/17 21:00 03/15/17 20:59 Propranolol HCl (Inderal) 10 mg BID NG 02/13/17 10:50 03/15/17 08:59 02/15/17 10:12 Quetiapine Fumarate 100 mg 100 mg QHS NG 02/13/17 21:00 03/15/17 20:59 02/14/17 22:22 Rifaximin (Xifaxan) 550 mg EVERY 12 HOURS NG 02/13/17 10:51 02/20/17 08:59 02/15/17 10:12 Valproic Acid (Depakene) 500 mg Q12H GT 02/13/17 09:00 03/15/17 08:59 02/15/17 10:12 Vancomycin HCl (Vanco rx to dose) 1 ea DAILY PRN MISC .Per Rx Protocol 02/13/17 09:00 03/15/17 08:59 Vancomycin HCl/ Dextrose (Vancomycin/D5W) 275 ml @ 183.708 mls/hr Q24H IVPB 02/13/17 00:00 02/18/17 00:00 02/14/17 23:35 Pura Klein M.D. February 15, 2017 15:53
[2017-02-15] MEDS ORDERED: Ibuprofen Susp 100mg/5ml GT PRN (21:00)
[2017-02-15] MEDS ORDERED: Miralax 17gm pkt NG PRN (21:00)
[2017-02-15] MEDS ORDERED: Haloperidol 5mg/ml Inj IM PRN (21:00)
[2017-02-15] MEDS ORDERED: Mylanta II UD 30ml NG PRN (21:00)
--- NOTE | 2017-02-15 21:19 | Progress Note ---
DATE: 02/14/2017 TREATING ATTENDING PHYSICIAN: Adolfo Busch D.O. SUBJECTIVE: The patient is a 51-year-old female patient who has been irritable, , confused, disorganized, altered in mental status, and agitated. She was diagnosed with depression. She has poor insight and judgment. Poor impulse control. . PLAN: This clinician assessed this patient. Provided the patient with supportive psychotherapy, reality orientation, and coping skills. Encouraging the patient to participate in milieu. Continue with medication management and behavioral management. This clinician has reviewed the patient's chart. Discussed the treatment with nursing staff. Timbo Guadalupe PsyD. DR: CAROLINA JOB#: [id number] CC:
[2017-02-15] MEDS ORDERED: Levophed 4mg/4mL Inj IV ONE (22:03)
--- NOTE | 2017-02-15 22:50 | Pulmonolgy Critical Care Note ---
Critical Care - Asmt/Plan Problems: (1) Shock (2) Liver cirrhosis (3) Encephalopathy (4) UTI (urinary tract infection) (5) Severe malnutrition (6) Psychiatric disorder (7) SHERIE (acute kidney injury) Respiratory: monitor respiratory rate, adjust FIO2, CXR Cardiac: continue pressors, continue to monitor HR/BP Renal: F/U I&O, keep IV fluid Infectious Disease: check cultures, continue antibiotics Gastrointestinal: continue feedings/current rate Endocrine: monitor blood sugar Hematologic: monitor H/H Neurologic: PRN Ativan, PRN Morphine Affect: PRN ativan Prophylaxis: Heparin Time Spent (Minutes): 40 Notes Reviewed: clarifier operator, cardio, renal Discussed with: nurses, consultants, clinical case managerseed sales manager - Objective Last 24 Hour Vital Signs Date Time Temp Pulse Resp B/P Pulse Ox O2 Delivery O2 Flow Rate FiO2 02/15/17 22:10 77/51 02/15/17 20:00 98.1 61 15 85/51 94 Nasal Cannula 2.0 02/15/17 18:00 65 105/56 02/15/17 15:49 97.5 65 20 105/56 96 Nasal Cannula 2.0 02/15/17 12:06 97.2 61 20 101/51 92 Room Air 02/15/17 11:45 95.5 59 13 89 Room Air 02/15/17 11:44 95.5 59 13 89 02/15/17 10:12 63 119/65 02/15/17 07:49 98.4 63 20 119/65 92 Room Air 02/15/17 03:57 73 20 115/67 92 Room Air 02/15/17 00:00 97.9 79 18 125/61 92 Room Air Status: obtunded Condition: grave HEENT: atraumatic Neck: full ROM Lungs: chest wall tender Heart: HR/BP stable, regular Abdomen: soft, non-tender Extremities: no C/C/E Decubiti: location Accucheck: 208 Critical Care - Subjective ROS Limited/Unobtainable: Yes ICU Day: 1 Interval Events: transferred to ICU because of episode of hypotension, her sbp was 40. needed IV levophed. Tube Feeding Amount: 30 I&O: Intake and Output 02/14/17 02/15/17 19:00 07:00 Intake Total 1110 ml 1675.000 ml Output Total 400 ml 700 ml Balance 710 ml 975.000 ml Free Water 150 ml 200 ml IV Total 600 ml 1175.000 ml Tube Feeding 360 ml 300 ml Output Urine Total 400 ml 700 ml # Voids 1 CXR: pending Labs: Laboratory Tests Test 02/15/17 05:20 White Blood Count 7.5 K/UL (4.8-10.8) Red Blood Count 2.76 M/UL (4.20-5.40) L Hemoglobin 9.1 G/DL (12.0-16.0) L Hematocrit 27.2 % (37.0-47.0) L Mean Corpuscular Volume 99 FL (80-99) Mean Corpuscular Hemoglobin 32.9 PG (27.0-31.0) H Mean Corpuscular Hemoglobin Concent 33.3 G/DL (32.0-36.0) Red Cell Distribution Width 15.8 % (11.6-14.8) H Platelet Count 99 K/UL (150-450) L Mean Platelet Volume 7.9 FL (6.5-10.1) Neutrophils (%) (Auto) % (45.0-75.0) Lymphocytes (%) (Auto) % (20.0-45.0) Monocytes (%) (Auto) % (1.0-10.0) Eosinophils (%) (Auto) % (0.0-3.0) Basophils (%) (Auto) % (0.0-2.0) Differential Total Cells Counted 100 Neutrophils % (Manual) 61 % (45-75) Lymphocytes % (Manual) 21 % (20-45) Monocytes % (Manual) 16 % (1-10) H Eosinophils % (Manual) 2 % (0-3) Basophils % (Manual) 0 % (0-2) Band Neutrophils 0 % (0-8) Platelet Estimate Decreased L Platelet Morphology Normal Hypochromasia 2+ Anisocytosis 1+ Sodium Level 143 mEQ/L (135-145) Potassium Level 4.8 mEQ/L (3.4-4.9) Chloride Level 104 mEQ/L (98-107) Carbon Dioxide Level 20 mEQ/L (20-30) Anion Gap 19 (5-15) H Blood Urea Nitrogen 50 mg/dL (7-23) H Creatinine 1.4 mg/dL (0.5-0.9) H Estimat Glomerular Filtration Rate 39.3 mL/min (>60) Glucose Level 126 mg/dL (74-106) H Calcium Level 8.8 mg/dL (8.6-10.2) Total Bilirubin 1.9 mg/dL (0.0-1.2) H Direct Bilirubin 0.5 mg/dL (0.1-0.3) H Aspartate Amino Transf (AST/SGOT) 70 U/L (5-40) H Alanine Aminotransferase (ALT/SGPT) 21 U/L (3-33) Alkaline Phosphatase 134 U/L (35-104) H Total Protein 7.5 g/dL (6.6-8.7) Albumin 2.0 g/dL (3.5-5.2) L Globulin 5.5 g/dL Albumin/Globulin Ratio 0.3 (1.0-2.7) L MANFRED YING February 15, 2017 22:50
[2017-02-16] VITALS (64 sets, daily range): BP systolic 73–143; BP diastolic 39–80
[2017-02-16] MEDS ORDERED: Vancomycin 1 GM in D5W 275 ML IVPB SCH ×2
[2017-02-16] MEDS: LORazepam 1mg tab NG SCH ×6 (01:00→21:10)
--- NOTE | 2017-02-16 01:17 | Emergency Room Report ---
History of Present Illness General Chief Complaint: Abnormal Labs Source: Medical Record Present Illness Allergies: Coded Allergies: PENICILLINS (Verified Allergy, Unknown, 02/10/17) Patient History Now: No Nursing Documentation-[facility] Past Medical History: No History, Except For Hx Hypertension: Yes Hx COPD: Yes History Of Psychiatric Problem: Yes - schizophrenia Physical Exam Vital Signs Date Time Temp Pulse Resp B/P Pulse Ox O2 Delivery O2 Flow Rate FiO2 02/10/17 10:10 98.4 80 18 136/76 95 Nasal Cannula 4.0 Procedures Central Line Central Line : Consent: Emergent Central Line Lumen: triple Maximal Sterile Barrier Tech: yes cap, yes mask, yes sterile gown, yes sterile gloves, yes large sterile sheet, yes hand hygiene, yes chlorhexidine prep Central Line Postion: femoral (R) Anesthesia: Lidocaine cc's of anesthesia: 3 Complications: none Central Line Post Position: sutured Attempts: One Patient Tolerated: Well Complications: None Progress I was called initially by primary intensivists for central line placement patient's blood pressure appeared to do initially better with fluids However I was again contacted by nursing staff Patient has required to be put on pressors and requires central line placement Upon arrival the patient appears lethargic and somnolent Central line was placed please refer to the note I did also recommend ABG and followup with slab lifting supervisor given the patient's general appearance And consideration for airway management Medical Decision Making Diagnostic Impression: Primary Impression: Encephalopathy Additional Impressions: Liver cirrhosis UTI (urinary tract infection) Altered mental state Last Vital Signs Date Time Temp Pulse Resp B/P Pulse Ox O2 Delivery O2 Flow Rate FiO2 02/15/17 22:15 70 19 109/48 97 Nasal Cannula 2.0 02/15/17 20:15 94.8 Disposition: ADMITTED INPATIENT Condition: Serious Referrals: TERE GILES (PCP) MERRY NICE D.O. February 16, 2017 01:17
[2017-02-16 01:44] LABS: ABG PCO2 34.9 mmHg (35.0-45.0)
[2017-02-16 01:45] LABS: ABG ALLEN TEST POSITIVE; ABG BASE EXCESS 2.2
[2017-02-16 05:31] LABS: MEAN CORPUSCULAR HEMOGLOBIN 32.6 PG (27.0-31.0); MEAN CORPUSCULAR HGB CONC 33.3 G/DL (32.0-36.0); MEAN CORPUSCULAR VOLUME 98 FL (80-99); MEAN PLATELET VOLUME 8.3 FL (6.5-10.1); PLATELET COUNT 95 K/UL (150-450); RED BLOOD COUNT 3.49 M/UL (4.20-5.40); WHITE BLOOD COUNT 7.4 K/UL (4.8-10.8)
[2017-02-16 05:38] LABS: TROPONIN I < 0.30 ng/mL (<=0.30)
[2017-02-16 05:39] LABS: CALCIUM 8.2 mg/dL (8.6-10.2); CREATININE 1.4 mg/dL (0.5-0.9); GLOMERULAR FILTRATION RATE 39.3 mL/min (>60); POTASSIUM 4.4 mEQ/L (3.4-4.9)
[2017-02-16] MEDS: Lactulose 20gm/30ml UDC NG SCH ×3 (06:16→22:13)
[2017-02-16] MEDS: Vancomycin 750mg/D5W 275ml IVPB SCH ×2 (07:52)
[2017-02-16] MEDS: Valproic Acid 250mg/5ml Liquid GT SCH ×2 (08:49→21:10)
[2017-02-16] MEDS: Rifaximin 550mg tab NG SCH ×2 (08:50→21:10)
[2017-02-16] MEDS: ARIPiprazole 10mg tab NG SCH (08:50)
[2017-02-16] MEDS: Depakote 125mg Sprinkles NG SCH (08:50)
[2017-02-16] MEDS ORDERED: Propranolol 10mg tab NG SCH (09:00)
[2017-02-16 10:07] LABS: EOSINOPHILS % (MANUAL) 2 % (0-3); LYMPHOCYTES % (MANUAL) 7 % (20-45); NEUTROPHILS % (MANUAL) 82 % (45-75); TOTAL CELLS COUNTED 100
[2017-02-16 10:08] LABS: BAND NEUTROPHILS % (MANUAL) 0 % (0-8); BASOPHILS % (MANUAL) 0 % (0-2); PLATELET ESTIMATE DECREASED; PLATELET MORPHOLOGY NORMAL
[2017-02-16] MEDS ORDERED: Tubing IV Secondary IV ONE (10:27)
[2017-02-16] MEDS ORDERED: Sterile Water Irrig 1000ml IRRIG ONE (10:27)
--- NOTE | 2017-02-16 10:40 | GI Progress Note ---
Assessment/Plan Problems: (1) Severe malnutrition ICD Codes: E43 - Unspecified severe protein-calorie malnutrition SNOMED: 88490960 (2) Altered mental state ICD Codes: R41.82 - Altered mental status, unspecified SNOMED: 466720653, 109406272 Qualifiers: Qualified Codes: R41.82 - Altered mental status, unspecified (3) Encephalopathy, multifactorial, hepatic/septic/renal (4) Encephalopathy ICD Codes: G93.40 - Encephalopathy, unspecified SNOMED: 83237764, 274873464 (5) Liver cirrhosis ICD Codes: K74.60 - Unspecified cirrhosis of liver SNOMED: 92401674 Qualifiers: Qualified Codes: K74.60 - Unspecified cirrhosis of liver Status: not improved, unchanged Status Narrative Discussed with Dr. Gil. Assessment/Plan transferred to ICU hep panel negative hypernatremia >> resolved elevated ammonia >> cont lactulose + Xifaxan reduce lactulose to help Na NGTFs per dietary ppi monitor LFTs fu labs poor prognosis Subjective Subjective limited, calm Objective Last 24 Hour Vital Signs Date Time Temp Pulse Resp B/P Pulse Ox O2 Delivery O2 Flow Rate FiO2 02/16/17 09:00 106/46 02/16/17 08:00 109/53 02/16/17 08:00 99.0 77 17 109/53 93 Nasal Cannula 2.0 02/16/17 08:00 78 02/16/17 07:45 70 17 111/57 96 Nasal Cannula 2.0 02/16/17 07:30 79 19 111/57 96 Nasal Cannula 2.0 02/16/17 07:15 78 19 95/78 97 Nasal Cannula 2.0 02/16/17 07:00 78 15 105/50 97 Nasal Cannula 2.0 02/16/17 06:30 76 18 103/59 98 Nasal Cannula 2.0 02/16/17 06:15 77 18 105/73 98 Nasal Cannula 2.0 02/16/17 06:00 71 13 109/54 100 Nasal Cannula 2.0 02/16/17 06:00 86/43 02/16/17 05:45 74 18 118/53 99 Nasal Cannula 2.0 02/16/17 05:30 73 18 86/43 99 Nasal Cannula 2.0 02/16/17 05:15 78 20 94/40 99 Nasal Cannula 2.0 02/16/17 05:00 81 20 114/80 99 Nasal Cannula 2.0 02/16/17 04:45 80 20 114/80 99 Nasal Cannula 2.0 02/16/17 04:30 81 21 103/50 98 Nasal Cannula 2.0 02/16/17 04:15 81 20 95/53 98 Nasal Cannula 2.0 02/16/17 04:00 61 02/16/17 04:00 97.3 82 21 101/55 97 Nasal Cannula 2.0 02/16/17 03:45 82 20 122/40 96 Nasal Cannula 2.0 02/16/17 03:30 81 20 78/44 96 Nasal Cannula 2.0 02/16/17 03:15 78 21 98/67 96 Nasal Cannula 2.0 02/16/17 03:00 79 22 121/50 96 Nasal Cannula 2.0 02/16/17 02:45 74 19 143/69 96 Nasal Cannula 2.0 02/16/17 02:30 73 19 122/53 96 Nasal Cannula 2.0 02/16/17 02:15 82 20 119/69 94 Nasal Cannula 2.0 02/16/17 02:00 79 20 88/46 94 Nasal Cannula 2.0 02/16/17 01:45 82 22 123/46 96 Nasal Cannula 2.0 02/16/17 01:30 75 20 111/45 96 Nasal Cannula 2.0 02/16/17 01:15 74 20 122/47 96 Nasal Cannula 2.0 02/16/17 01:00 76 20 119/47 96 Nasal Cannula 2.0 02/16/17 00:45 75 20 120/49 96 Nasal Cannula 2.0 02/16/17 00:30 75 20 96/46 96 Nasal Cannula 2.0 02/16/17 00:15 63 18 111/42 98 Nasal Cannula 2.0 02/16/17 00:00 65 18 115/53 97 Nasal Cannula 2.0 02/16/17 00:00 73/41 02/16/17 00:00 63 02/15/17 23:45 62 17 118/57 98 Nasal Cannula 2.0 02/15/17 23:30 62 17 73/41 98 Nasal Cannula 2.0 02/15/17 23:15 70 17 65/33 98 Nasal Cannula 2.0 02/15/17 23:00 72 18 114/71 98 Nasal Cannula 2.0 02/15/17 22:45 72 18 101/39 99 Nasal Cannula 2.0 02/15/17 22:30 71 17 89/33 100 Nasal Cannula 2.0 02/15/17 22:15 70 19 109/48 97 Nasal Cannula 2.0 02/15/17 22:10 77/51 02/15/17 22:00 75 19 108/47 97 Nasal Cannula 2.0 02/15/17 21:45 67 16 104/52 100 Nasal Cannula 2.0 02/15/17 21:30 64 17 60/48 100 Nasal Cannula 2.0 02/15/17 21:15 63 17 54/34 98 Nasal Cannula 2.0 02/15/17 21:00 63 17 50/27 98 Nasal Cannula 2.0 02/15/17 20:45 65 18 42/59 98 Nasal Cannula 2.0 02/15/17 20:36 64 02/15/17 20:15 94.8 65 15 80/49 94 Nasal Cannula 2.0 02/15/17 20:00 98.1 61 15 85/51 94 Nasal Cannula 2.0 02/15/17 18:00 65 105/56 02/15/17 15:49 97.5 65 20 105/56 96 Nasal Cannula 2.0 02/15/17 12:06 97.2 61 20 101/51 92 Room Air 02/15/17 11:45 95.5 59 13 89 Room Air 02/15/17 11:44 95.5 59 13 89 Intake and Output 02/15/17 02/16/17 19:00 07:00 Intake Total 1370 ml 1302.5 ml Output Total 300 ml 910 ml Balance 1070 ml 392.5 ml Free Water 100 ml 200 ml IV Total 1000 ml 982.5 ml Tube Feeding 270 ml 60 ml Other 60 ml Output Urine Total 300 ml 910 ml Laboratory Tests Test 02/15/17 22:50 02/16/17 01:09 02/16/17 04:20 02/16/17 05:55 Vancomycin Level Trough 23.9 ug/mL (5.0-12.0) H Arterial Blood pH 7.480 (7.350-7.450) Arterial Blood Partial Pressure CO2 34.9 mmHg (35.0-45.0) L Arterial Blood Partial Pressure O2 90.8 mmHg (75.0-100.0) Arterial Blood HCO3 25.4 mmol/L (22.0-26.0) Arterial Blood Oxygen Saturation 96.3 % (92.0-98.0) Arterial Blood Base Excess 2.2 Harley Test Positive White Blood Count 7.4 K/UL (4.8-10.8) Red Blood Count 3.49 M/UL (4.20-5.40) L Hemoglobin 11.4 G/DL (12.0-16.0) L Hematocrit 34.1 % (37.0-47.0) L Mean Corpuscular Volume 98 FL (80-99) Mean Corpuscular Hemoglobin 32.6 PG (27.0-31.0) H Mean Corpuscular Hemoglobin Concent 33.3 G/DL (32.0-36.0) Red Cell Distribution Width 15.0 % (11.6-14.8) H Platelet Count 95 K/UL (150-450) L Mean Platelet Volume 8.3 FL (6.5-10.1) Neutrophils (%) (Auto) % (45.0-75.0) Lymphocytes (%) (Auto) % (20.0-45.0) Monocytes (%) (Auto) % (1.0-10.0) Eosinophils (%) (Auto) % (0.0-3.0) Basophils (%) (Auto) % (0.0-2.0) Differential Total Cells Counted 100 Neutrophils % (Manual) 82 % (45-75) H Lymphocytes % (Manual) 7 % (20-45) L Monocytes % (Manual) 9 % (1-10) Eosinophils % (Manual) 2 % (0-3) Basophils % (Manual) 0 % (0-2) Band Neutrophils 0 % (0-8) Platelet Estimate Decreased L Platelet Morphology Normal Red Blood Cell Morphology Normal Sodium Level 139 mEQ/L (135-145) Potassium Level 4.4 mEQ/L (3.4-4.9) Chloride Level 106 mEQ/L (98-107) Carbon Dioxide Level 21 mEQ/L (20-30) Anion Gap 12 (5-15) Blood Urea Nitrogen 46 mg/dL (7-23) H Creatinine 1.4 mg/dL (0.5-0.9) H Estimat Glomerular Filtration Rate 39.3 mL/min (>60) Glucose Level 94 mg/dL (74-106) Calcium Level 8.2 mg/dL (8.6-10.2) L Ammonia 130 umol/L (11-51) H Troponin I < 0.30 ng/mL (<=0.30) Lactic Acid Level 1.50 mmol/L (0.66-2.22) Height (Feet): 5 Height (Inches): 6.00 Weight (Pounds): 130 General Appearance: no apparent distress, alert Cardiovascular: normal rate Respiratory/Chest: normal breath sounds, no respiratory distress, other - 2LNC Abdominal Exam: other - NGT Diamond Smith N.P. February 16, 2017 10:40
--- NOTE | 2017-02-16 12:14 | Diagnostic Imaging Report ---
Indication: Dyspnea Comparison: 02/13/17 A single view chest radiograph was obtained. Findings: NG tube is in good position. There is no infiltrate. The interstitium of the lung may be slightly prominent. Heart size has normalized. Impression: No acute disease identified currently
--- NOTE | 2017-02-16 14:25 | Cardiac Electrophysiology PN ---
Subjective Subjective [id number] Objective Last 24 Hour Vital Signs Date Time Temp Pulse Resp B/P Pulse Ox O2 Delivery O2 Flow Rate FiO2 02/16/17 14:00 79 17 91/52 97 Nasal Cannula 2.0 02/16/17 12:30 77 19 84/46 97 Nasal Cannula 2.0 02/16/17 12:15 80 18 112/60 94 Nasal Cannula 2.0 02/16/17 12:00 97.7 78 19 112/60 93 Nasal Cannula 2.0 02/16/17 12:00 82 02/16/17 12:00 112/60 02/16/17 11:45 77 17 101/52 95 Nasal Cannula 2.0 02/16/17 11:30 76 18 100/50 94 Nasal Cannula 2.0 02/16/17 11:15 77 18 98/64 95 Nasal Cannula 2.0 02/16/17 11:00 77 18 97/52 96 Nasal Cannula 2.0 02/16/17 11:00 126/60 02/16/17 10:45 75 17 100/57 96 Nasal Cannula 2.0 02/16/17 10:30 73 19 126/60 95 Nasal Cannula 2.0 02/16/17 10:15 74 20 110/50 95 Nasal Cannula 2.0 02/16/17 10:00 75 20 104/52 94 Nasal Cannula 2.0 02/16/17 10:00 104/52 02/16/17 09:45 76 19 96/56 94 Nasal Cannula 2.0 02/16/17 09:30 76 19 105/49 94 Nasal Cannula 2.0 02/16/17 09:15 77 19 100/52 94 Nasal Cannula 2.0 02/16/17 09:00 106/46 02/16/17 09:00 76 19 77/59 94 Nasal Cannula 2.0 02/16/17 08:45 77 20 106/45 93 Nasal Cannula 2.0 02/16/17 08:30 75 19 121/46 94 Nasal Cannula 2.0 02/16/17 08:15 76 19 120/49 93 Nasal Cannula 2.0 02/16/17 08:00 109/53 02/16/17 08:00 99.0 77 17 109/53 93 Nasal Cannula 2.0 02/16/17 08:00 78 02/16/17 07:45 70 17 111/57 96 Nasal Cannula 2.0 02/16/17 07:30 79 19 111/57 96 Nasal Cannula 2.0 02/16/17 07:15 78 19 95/78 97 Nasal Cannula 2.0 02/16/17 07:00 78 15 105/50 97 Nasal Cannula 2.0 02/16/17 06:30 76 18 103/59 98 Nasal Cannula 2.0 02/16/17 06:15 77 18 105/73 98 Nasal Cannula 2.0 02/16/17 06:00 71 13 109/54 100 Nasal Cannula 2.0 02/16/17 06:00 86/43 02/16/17 05:45 74 18 118/53 99 Nasal Cannula 2.0 02/16/17 05:30 73 18 86/43 99 Nasal Cannula 2.0 02/16/17 05:15 78 20 94/40 99 Nasal Cannula 2.0 02/16/17 05:00 81 20 114/80 99 Nasal Cannula 2.0 02/16/17 04:45 80 20 114/80 99 Nasal Cannula 2.0 02/16/17 04:30 81 21 103/50 98 Nasal Cannula 2.0 02/16/17 04:15 81 20 95/53 98 Nasal Cannula 2.0 02/16/17 04:00 61 02/16/17 04:00 97.3 82 21 101/55 97 Nasal Cannula 2.0 02/16/17 03:45 82 20 122/40 96 Nasal Cannula 2.0 02/16/17 03:30 81 20 78/44 96 Nasal Cannula 2.0 02/16/17 03:15 78 21 98/67 96 Nasal Cannula 2.0 02/16/17 03:00 79 22 121/50 96 Nasal Cannula 2.0 02/16/17 02:45 74 19 143/69 96 Nasal Cannula 2.0 02/16/17 02:30 73 19 122/53 96 Nasal Cannula 2.0 02/16/17 02:15 82 20 119/69 94 Nasal Cannula 2.0 02/16/17 02:00 79 20 88/46 94 Nasal Cannula 2.0 02/16/17 01:45 82 22 123/46 96 Nasal Cannula 2.0 02/16/17 01:30 75 20 111/45 96 Nasal Cannula 2.0 02/16/17 01:15 74 20 122/47 96 Nasal Cannula 2.0 02/16/17 01:00 76 20 119/47 96 Nasal Cannula 2.0 02/16/17 00:45 75 20 120/49 96 Nasal Cannula 2.0 02/16/17 00:30 75 20 96/46 96 Nasal Cannula 2.0 02/16/17 00:15 63 18 111/42 98 Nasal Cannula 2.0 02/16/17 00:00 65 18 115/53 97 Nasal Cannula 2.0 02/16/17 00:00 73/41 02/16/17 00:00 63 02/15/17 23:45 62 17 118/57 98 Nasal Cannula 2.0 02/15/17 23:30 62 17 73/41 98 Nasal Cannula 2.0 02/15/17 23:15 70 17 65/33 98 Nasal Cannula 2.0 02/15/17 23:00 72 18 114/71 98 Nasal Cannula 2.0 02/15/17 22:45 72 18 101/39 99 Nasal Cannula 2.0 02/15/17 22:30 71 17 89/33 100 Nasal Cannula 2.0 02/15/17 22:15 70 19 109/48 97 Nasal Cannula 2.0 02/15/17 22:10 77/51 02/15/17 22:00 75 19 108/47 97 Nasal Cannula 2.0 02/15/17 21:45 67 16 104/52 100 Nasal Cannula 2.0 02/15/17 21:30 64 17 60/48 100 Nasal Cannula 2.0 02/15/17 21:15 63 17 54/34 98 Nasal Cannula 2.0 02/15/17 21:00 63 17 50/27 98 Nasal Cannula 2.0 02/15/17 20:45 65 18 42/59 98 Nasal Cannula 2.0 02/15/17 20:36 64 02/15/17 20:15 94.8 65 15 80/49 94 Nasal Cannula 2.0 02/15/17 20:00 98.1 61 15 85/51 94 Nasal Cannula 2.0 02/15/17 18:00 65 105/56 02/15/17 15:49 97.5 65 20 105/56 96 Nasal Cannula 2.0 Intake and Output 02/15/17 02/16/17 19:00 07:00 Intake Total 1370 ml 1302.5 ml Output Total 300 ml 910 ml Balance 1070 ml 392.5 ml Free Water 100 ml 200 ml IV Total 1000 ml 982.5 ml Tube Feeding 270 ml 60 ml Other 60 ml Output Urine Total 300 ml 910 ml Laboratory Tests Test 02/15/17 22:50 02/16/17 01:09 02/16/17 04:20 02/16/17 05:55 Vancomycin Level Trough 23.9 ug/mL (5.0-12.0) H Arterial Blood pH 7.480 (7.350-7.450) Arterial Blood Partial Pressure CO2 34.9 mmHg (35.0-45.0) L Arterial Blood Partial Pressure O2 90.8 mmHg (75.0-100.0) Arterial Blood HCO3 25.4 mmol/L (22.0-26.0) Arterial Blood Oxygen Saturation 96.3 % (92.0-98.0) Arterial Blood Base Excess 2.2 Harley Test Positive White Blood Count 7.4 K/UL (4.8-10.8) Red Blood Count 3.49 M/UL (4.20-5.40) L Hemoglobin 11.4 G/DL (12.0-16.0) L Hematocrit 34.1 % (37.0-47.0) L Mean Corpuscular Volume 98 FL (80-99) Mean Corpuscular Hemoglobin 32.6 PG (27.0-31.0) H Mean Corpuscular Hemoglobin Concent 33.3 G/DL (32.0-36.0) Red Cell Distribution Width 15.0 % (11.6-14.8) H Platelet Count 95 K/UL (150-450) L Mean Platelet Volume 8.3 FL (6.5-10.1) Neutrophils (%) (Auto) % (45.0-75.0) Lymphocytes (%) (Auto) % (20.0-45.0) Monocytes (%) (Auto) % (1.0-10.0) Eosinophils (%) (Auto) % (0.0-3.0) Basophils (%) (Auto) % (0.0-2.0) Differential Total Cells Counted 100 Neutrophils % (Manual) 82 % (45-75) H Lymphocytes % (Manual) 7 % (20-45) L Monocytes % (Manual) 9 % (1-10) Eosinophils % (Manual) 2 % (0-3) Basophils % (Manual) 0 % (0-2) Band Neutrophils 0 % (0-8) Platelet Estimate Decreased L Platelet Morphology Normal Red Blood Cell Morphology Normal Sodium Level 139 mEQ/L (135-145) Potassium Level 4.4 mEQ/L (3.4-4.9) Chloride Level 106 mEQ/L (98-107) Carbon Dioxide Level 21 mEQ/L (20-30) Anion Gap 12 (5-15) Blood Urea Nitrogen 46 mg/dL (7-23) H Creatinine 1.4 mg/dL (0.5-0.9) H Estimat Glomerular Filtration Rate 39.3 mL/min (>60) Glucose Level 94 mg/dL (74-106) Calcium Level 8.2 mg/dL (8.6-10.2) L Ammonia 130 umol/L (11-51) H Troponin I < 0.30 ng/mL (<=0.30) Lactic Acid Level 1.50 mmol/L (0.66-2.22) ELIUD LALA February 16, 2017 14:25
--- NOTE | 2017-02-16 15:04 | General Progress Note ---
Assessment/Plan Problem List: (1) Liver cirrhosis ICD Codes: K74.60 - Unspecified cirrhosis of liver SNOMED: 73882146 Qualifiers: Qualified Codes: K74.60 - Unspecified cirrhosis of liver (2) Encephalopathy ICD Codes: G93.40 - Encephalopathy, unspecified SNOMED: 90703480, 073570255 (3) UTI (urinary tract infection) ICD Codes: N39.0 - Urinary tract infection, site not specified SNOMED: 14145847 Qualifiers: Qualified Codes: N30.01 - Acute cystitis with hematuria (4) Encephalopathy, multifactorial, hepatic/septic/renal (5) Altered mental state ICD Codes: R41.82 - Altered mental status, unspecified SNOMED: 775230808, 724038391 Qualifiers: Qualified Codes: R41.82 - Altered mental status, unspecified (6) Severe malnutrition ICD Codes: E43 - Unspecified severe protein-calorie malnutrition SNOMED: 71897384 (7) Psychiatric disorder ICD Codes: F99 - Mental disorder, not otherwise specified SNOMED: 01297392, 753904345 Status: stable, progressing, tolerating diet Assessment/Plan ot pt diet ivf psyc neuro gi tx cbc bmp am promise ltach transfer Subjective Constitutional: Reports: weakness Allergies: Coded Allergies: PENICILLINS (Verified Allergy, Unknown, 02/10/17) All Systems: reviewed and negative except above Subjective 02nc ng sleepy in icu Objective Last 24 Hour Vital Signs Date Time Temp Pulse Resp B/P Pulse Ox O2 Delivery O2 Flow Rate FiO2 02/16/17 14:00 79 17 91/52 97 Nasal Cannula 2.0 02/16/17 13:00 73 18 108/47 95 Nasal Cannula 2.0 02/16/17 12:30 77 19 84/46 97 Nasal Cannula 2.0 02/16/17 12:15 80 18 112/60 94 Nasal Cannula 2.0 02/16/17 12:00 97.7 78 19 112/60 93 Nasal Cannula 2.0 02/16/17 12:00 82 02/16/17 12:00 112/60 02/16/17 11:45 77 17 101/52 95 Nasal Cannula 2.0 02/16/17 11:30 76 18 100/50 94 Nasal Cannula 2.0 02/16/17 11:15 77 18 98/64 95 Nasal Cannula 2.0 02/16/17 11:00 77 18 97/52 96 Nasal Cannula 2.0 02/16/17 11:00 126/60 02/16/17 10:45 75 17 100/57 96 Nasal Cannula 2.0 02/16/17 10:30 73 19 126/60 95 Nasal Cannula 2.0 02/16/17 10:15 74 20 110/50 95 Nasal Cannula 2.0 02/16/17 10:00 75 20 104/52 94 Nasal Cannula 2.0 02/16/17 10:00 104/52 02/16/17 09:45 76 19 96/56 94 Nasal Cannula 2.0 02/16/17 09:30 76 19 105/49 94 Nasal Cannula 2.0 02/16/17 09:15 77 19 100/52 94 Nasal Cannula 2.0 02/16/17 09:00 106/46 02/16/17 09:00 76 19 77/59 94 Nasal Cannula 2.0 02/16/17 08:45 77 20 106/45 93 Nasal Cannula 2.0 02/16/17 08:30 75 19 121/46 94 Nasal Cannula 2.0 02/16/17 08:15 76 19 120/49 93 Nasal Cannula 2.0 02/16/17 08:00 109/53 02/16/17 08:00 99.0 77 17 109/53 93 Nasal Cannula 2.0 02/16/17 08:00 78 02/16/17 07:45 70 17 111/57 96 Nasal Cannula 2.0 02/16/17 07:30 79 19 111/57 96 Nasal Cannula 2.0 02/16/17 07:15 78 19 95/78 97 Nasal Cannula 2.0 02/16/17 07:00 78 15 105/50 97 Nasal Cannula 2.0 02/16/17 06:30 76 18 103/59 98 Nasal Cannula 2.0 02/16/17 06:15 77 18 105/73 98 Nasal Cannula 2.0 02/16/17 06:00 71 13 109/54 100 Nasal Cannula 2.0 02/16/17 06:00 86/43 02/16/17 05:45 74 18 118/53 99 Nasal Cannula 2.0 02/16/17 05:30 73 18 86/43 99 Nasal Cannula 2.0 02/16/17 05:15 78 20 94/40 99 Nasal Cannula 2.0 02/16/17 05:00 81 20 114/80 99 Nasal Cannula 2.0 02/16/17 04:45 80 20 114/80 99 Nasal Cannula 2.0 02/16/17 04:30 81 21 103/50 98 Nasal Cannula 2.0 02/16/17 04:15 81 20 95/53 98 Nasal Cannula 2.0 02/16/17 04:00 61 02/16/17 04:00 97.3 82 21 101/55 97 Nasal Cannula 2.0 02/16/17 03:45 82 20 122/40 96 Nasal Cannula 2.0 02/16/17 03:30 81 20 78/44 96 Nasal Cannula 2.0 02/16/17 03:15 78 21 98/67 96 Nasal Cannula 2.0 02/16/17 03:00 79 22 121/50 96 Nasal Cannula 2.0 02/16/17 02:45 74 19 143/69 96 Nasal Cannula 2.0 02/16/17 02:30 73 19 122/53 96 Nasal Cannula 2.0 02/16/17 02:15 82 20 119/69 94 Nasal Cannula 2.0 02/16/17 02:00 79 20 88/46 94 Nasal Cannula 2.0 02/16/17 01:45 82 22 123/46 96 Nasal Cannula 2.0 02/16/17 01:30 75 20 111/45 96 Nasal Cannula 2.0 02/16/17 01:15 74 20 122/47 96 Nasal Cannula 2.0 02/16/17 01:00 76 20 119/47 96 Nasal Cannula 2.0 02/16/17 00:45 75 20 120/49 96 Nasal Cannula 2.0 02/16/17 00:30 75 20 96/46 96 Nasal Cannula 2.0 02/16/17 00:15 63 18 111/42 98 Nasal Cannula 2.0 02/16/17 00:00 65 18 115/53 97 Nasal Cannula 2.0 02/16/17 00:00 73/41 02/16/17 00:00 63 02/15/17 23:45 62 17 118/57 98 Nasal Cannula 2.0 02/15/17 23:30 62 17 73/41 98 Nasal Cannula 2.0 02/15/17 23:15 70 17 65/33 98 Nasal Cannula 2.0 02/15/17 23:00 72 18 114/71 98 Nasal Cannula 2.0 02/15/17 22:45 72 18 101/39 99 Nasal Cannula 2.0 02/15/17 22:30 71 17 89/33 100 Nasal Cannula 2.0 02/15/17 22:15 70 19 109/48 97 Nasal Cannula 2.0 02/15/17 22:10 77/51 02/15/17 22:00 75 19 108/47 97 Nasal Cannula 2.0 02/15/17 21:45 67 16 104/52 100 Nasal Cannula 2.0 02/15/17 21:30 64 17 60/48 100 Nasal Cannula 2.0 02/15/17 21:15 63 17 54/34 98 Nasal Cannula 2.0 02/15/17 21:00 63 17 50/27 98 Nasal Cannula 2.0 02/15/17 20:45 65 18 42/59 98 Nasal Cannula 2.0 02/15/17 20:36 64 02/15/17 20:15 94.8 65 15 80/49 94 Nasal Cannula 2.0 02/15/17 20:00 98.1 61 15 85/51 94 Nasal Cannula 2.0 02/15/17 18:00 65 105/56 02/15/17 15:49 97.5 65 20 105/56 96 Nasal Cannula 2.0 Intake and Output 02/15/17 02/16/17 19:00 07:00 Intake Total 1370 ml 1302.5 ml Output Total 300 ml 910 ml Balance 1070 ml 392.5 ml Free Water 100 ml 200 ml IV Total 1000 ml 982.5 ml Tube Feeding 270 ml 60 ml Other 60 ml Output Urine Total 300 ml 910 ml Laboratory Tests 02/15/17 22:50: Vancomycin Level Trough 23.9H 02/16/17 01:09: Arterial Blood pH 7.480H, Arterial Blood Partial Pressure CO2 34.9L, Arterial Blood Partial Pressure O2 90.8, Arterial Blood HCO3 25.4, Arterial Blood Oxygen Saturation 96.3, Arterial Blood Base Excess 2.2, Harley Test Positive 02/16/17 04:20: White Blood Count 7.4, Red Blood Count 3.49L, Hemoglobin 11.4L, Hematocrit 34.1L , Mean Corpuscular Volume 98, Mean Corpuscular Hemoglobin 32.6H, Mean Corpuscular Hemoglobin Concent 33.3, Red Cell Distribution Width 15.0H, Platelet Count 95L, Mean Platelet Volume 8.3, Neutrophils (%) (Auto) , Lymphocytes (%) (Auto) , Monocytes (%) (Auto) , Eosinophils (%) (Auto) , Basophils (%) (Auto) , Differential Total Cells Counted 100, Neutrophils % ( Manual) 82H, Lymphocytes % (Manual) 7L, Monocytes % (Manual) 9, Eosinophils % ( Manual) 2, Basophils % (Manual) 0, Band Neutrophils 0, Platelet Estimate DecreasedL, Platelet Morphology Normal, Red Blood Cell Morphology Normal, Sodium Level 139, Potassium Level 4.4, Chloride Level 106, Carbon Dioxide Level 21, Anion Gap 12, Blood Urea Nitrogen 46H, Creatinine 1.4H, Estimat Glomerular Filtration Rate 39.3, Glucose Level 94, Calcium Level 8.2L, Ammonia 130H, Troponin I < 0.30 02/16/17 05:55: Lactic Acid Level 1.50 Height (Feet): 5 Height (Inches): 6.00 Weight (Pounds): 130 General Appearance: lethargic EENT: normal ENT inspection Neck: normal alignment Cardiovascular: normal peripheral pulses, normal rate, regular rhythm Respiratory/Chest: chest wall non-tender, lungs clear, normal breath sounds Abdomen: normal bowel sounds, non tender, soft Extremities: normal inspection Edema: no edema noted Arm (L), no edema noted Arm (R), no edema noted Leg (L), no edema noted Leg (R), no edema noted Pedal (L), no edema noted Pedal (R), no edema noted Generalized Neurologic: responsive, motor weakness Skin: normal pigmentation, warm/dry TERE GILES February 16, 2017 15:04
[2017-02-16] MEDS ORDERED: D5W 275ml ONE (15:08)
--- NOTE | 2017-02-16 16:13 | Infectious Diseases Prog Note ---
Assessment/Plan Problems: (1) Hypotension Assessment & Plan: rule out sepsis, will send blood culture and start aztreonam and continue vancomycin for now , repeat UA and culture (2) UTI (urinary tract infection) Assessment & Plan: due to methicillin sensitive staph aureus, continue vancomycin dosed by pharmacy (3) Encephalopathy, multifactorial, hepatic/septic/renal Assessment & Plan: had elevated ammonia level, continue lactulose, and antibiotics for UTI, neurology is following (4) Liver cirrhosis Assessment & Plan: with negative hepatitis panel, continue supportive care, avoid hepatotoxic meds, consult GI (5) Altered mental state Assessment & Plan: with agitation and confusion, multifactorial , continue antibiotics, and lactulose.neurology is following Subjective ROS Limited/Unobtainable: Yes Allergies: Coded Allergies: PENICILLINS (Verified Allergy, Unknown, 02/10/17) Subjective she was sleeping but arousable and open eyes spontaneously, comfortable, not in distress . afebrile, dosen't follow commands Objective Vital Signs Last 24 Hour Vital Signs Date Time Temp Pulse Resp B/P Pulse Ox O2 Delivery O2 Flow Rate FiO2 02/16/17 16:00 97.5 71 21 107/47 95 Nasal Cannula 2.0 02/16/17 15:00 69 17 94/43 96 Nasal Cannula 2.0 02/16/17 14:00 79 17 91/52 97 Nasal Cannula 2.0 02/16/17 13:00 73 18 108/47 95 Nasal Cannula 2.0 02/16/17 12:30 77 19 84/46 97 Nasal Cannula 2.0 02/16/17 12:15 80 18 112/60 94 Nasal Cannula 2.0 02/16/17 12:00 97.7 78 19 112/60 93 Nasal Cannula 2.0 02/16/17 12:00 82 02/16/17 12:00 112/60 02/16/17 11:45 77 17 101/52 95 Nasal Cannula 2.0 02/16/17 11:30 76 18 100/50 94 Nasal Cannula 2.0 02/16/17 11:15 77 18 98/64 95 Nasal Cannula 2.0 02/16/17 11:00 77 18 97/52 96 Nasal Cannula 2.0 02/16/17 11:00 126/60 02/16/17 10:45 75 17 100/57 96 Nasal Cannula 2.0 02/16/17 10:30 73 19 126/60 95 Nasal Cannula 2.0 02/16/17 10:15 74 20 110/50 95 Nasal Cannula 2.0 02/16/17 10:00 75 20 104/52 94 Nasal Cannula 2.0 02/16/17 10:00 104/52 02/16/17 09:45 76 19 96/56 94 Nasal Cannula 2.0 02/16/17 09:30 76 19 105/49 94 Nasal Cannula 2.0 02/16/17 09:15 77 19 100/52 94 Nasal Cannula 2.0 02/16/17 09:00 106/46 02/16/17 09:00 76 19 77/59 94 Nasal Cannula 2.0 02/16/17 08:45 77 20 106/45 93 Nasal Cannula 2.0 02/16/17 08:30 75 19 121/46 94 Nasal Cannula 2.0 02/16/17 08:15 76 19 120/49 93 Nasal Cannula 2.0 02/16/17 08:00 109/53 02/16/17 08:00 99.0 77 17 109/53 93 Nasal Cannula 2.0 02/16/17 08:00 78 02/16/17 07:45 70 17 111/57 96 Nasal Cannula 2.0 02/16/17 07:30 79 19 111/57 96 Nasal Cannula 2.0 02/16/17 07:15 78 19 95/78 97 Nasal Cannula 2.0 02/16/17 07:00 78 15 105/50 97 Nasal Cannula 2.0 02/16/17 06:30 76 18 103/59 98 Nasal Cannula 2.0 02/16/17 06:15 77 18 105/73 98 Nasal Cannula 2.0 02/16/17 06:00 71 13 109/54 100 Nasal Cannula 2.0 02/16/17 06:00 86/43 02/16/17 05:45 74 18 118/53 99 Nasal Cannula 2.0 02/16/17 05:30 73 18 86/43 99 Nasal Cannula 2.0 02/16/17 05:15 78 20 94/40 99 Nasal Cannula 2.0 02/16/17 05:00 81 20 114/80 99 Nasal Cannula 2.0 02/16/17 04:45 80 20 114/80 99 Nasal Cannula 2.0 02/16/17 04:30 81 21 103/50 98 Nasal Cannula 2.0 02/16/17 04:15 81 20 95/53 98 Nasal Cannula 2.0 02/16/17 04:00 61 02/16/17 04:00 97.3 82 21 101/55 97 Nasal Cannula 2.0 02/16/17 03:45 82 20 122/40 96 Nasal Cannula 2.0 02/16/17 03:30 81 20 78/44 96 Nasal Cannula 2.0 02/16/17 03:15 78 21 98/67 96 Nasal Cannula 2.0 02/16/17 03:00 79 22 121/50 96 Nasal Cannula 2.0 02/16/17 02:45 74 19 143/69 96 Nasal Cannula 2.0 02/16/17 02:30 73 19 122/53 96 Nasal Cannula 2.0 02/16/17 02:15 82 20 119/69 94 Nasal Cannula 2.0 02/16/17 02:00 79 20 88/46 94 Nasal Cannula 2.0 02/16/17 01:45 82 22 123/46 96 Nasal Cannula 2.0 02/16/17 01:30 75 20 111/45 96 Nasal Cannula 2.0 02/16/17 01:15 74 20 122/47 96 Nasal Cannula 2.0 02/16/17 01:00 76 20 119/47 96 Nasal Cannula 2.0 02/16/17 00:45 75 20 120/49 96 Nasal Cannula 2.0 02/16/17 00:30 75 20 96/46 96 Nasal Cannula 2.0 02/16/17 00:15 63 18 111/42 98 Nasal Cannula 2.0 02/16/17 00:00 65 18 115/53 97 Nasal Cannula 2.0 02/16/17 00:00 73/41 02/16/17 00:00 63 02/15/17 23:45 62 17 118/57 98 Nasal Cannula 2.0 02/15/17 23:30 62 17 73/41 98 Nasal Cannula 2.0 02/15/17 23:15 70 17 65/33 98 Nasal Cannula 2.0 02/15/17 23:00 72 18 114/71 98 Nasal Cannula 2.0 02/15/17 22:45 72 18 101/39 99 Nasal Cannula 2.0 02/15/17 22:30 71 17 89/33 100 Nasal Cannula 2.0 02/15/17 22:15 70 19 109/48 97 Nasal Cannula 2.0 02/15/17 22:10 77/51 02/15/17 22:00 75 19 108/47 97 Nasal Cannula 2.0 02/15/17 21:45 67 16 104/52 100 Nasal Cannula 2.0 02/15/17 21:30 64 17 60/48 100 Nasal Cannula 2.0 02/15/17 21:15 63 17 54/34 98 Nasal Cannula 2.0 02/15/17 21:00 63 17 50/27 98 Nasal Cannula 2.0 02/15/17 20:45 65 18 42/59 98 Nasal Cannula 2.0 02/15/17 20:36 64 02/15/17 20:15 94.8 65 15 80/49 94 Nasal Cannula 2.0 02/15/17 20:00 98.1 61 15 85/51 94 Nasal Cannula 2.0 02/15/17 18:00 65 105/56 Height (Feet): 5 Height (Inches): 6.00 Weight (Pounds): 130 General Appearance: WD/WN, no acute distress HEENT: normocephalic, atraumatic, anicteric, supple, no JVD Respiratory/Chest: chest wall non-tender, lungs clear, no respiratory distress , no accessory muscle use, decreased breath sounds Cardiovascular: normal peripheral pulses, normal rate, regular rhythm, no gallop/murmur, no JVD Abdomen: normal bowel sounds, soft, non tender, no organomegaly, non distended , no mass Extremities: no cyanosis, no clubbing Skin: no rash, no lesions Laboratory Tests Test 02/15/17 22:50 02/16/17 01:09 02/16/17 04:20 02/16/17 05:55 Vancomycin Level Trough 23.9 ug/mL (5.0-12.0) H Arterial Blood pH 7.480 (7.350-7.450) Arterial Blood Partial Pressure CO2 34.9 mmHg (35.0-45.0) L Arterial Blood Partial Pressure O2 90.8 mmHg (75.0-100.0) Arterial Blood HCO3 25.4 mmol/L (22.0-26.0) Arterial Blood Oxygen Saturation 96.3 % (92.0-98.0) Arterial Blood Base Excess 2.2 Harley Test Positive White Blood Count 7.4 K/UL (4.8-10.8) Red Blood Count 3.49 M/UL (4.20-5.40) L Hemoglobin 11.4 G/DL (12.0-16.0) L Hematocrit 34.1 % (37.0-47.0) L Mean Corpuscular Volume 98 FL (80-99) Mean Corpuscular Hemoglobin 32.6 PG (27.0-31.0) H Mean Corpuscular Hemoglobin Concent 33.3 G/DL (32.0-36.0) Red Cell Distribution Width 15.0 % (11.6-14.8) H Platelet Count 95 K/UL (150-450) L Mean Platelet Volume 8.3 FL (6.5-10.1) Neutrophils (%) (Auto) % (45.0-75.0) Lymphocytes (%) (Auto) % (20.0-45.0) Monocytes (%) (Auto) % (1.0-10.0) Eosinophils (%) (Auto) % (0.0-3.0) Basophils (%) (Auto) % (0.0-2.0) Differential Total Cells Counted 100 Neutrophils % (Manual) 82 % (45-75) H Lymphocytes % (Manual) 7 % (20-45) L Monocytes % (Manual) 9 % (1-10) Eosinophils % (Manual) 2 % (0-3) Basophils % (Manual) 0 % (0-2) Band Neutrophils 0 % (0-8) Platelet Estimate Decreased L Platelet Morphology Normal Red Blood Cell Morphology Normal Sodium Level 139 mEQ/L (135-145) Potassium Level 4.4 mEQ/L (3.4-4.9) Chloride Level 106 mEQ/L (98-107) Carbon Dioxide Level 21 mEQ/L (20-30) Anion Gap 12 (5-15) Blood Urea Nitrogen 46 mg/dL (7-23) H Creatinine 1.4 mg/dL (0.5-0.9) H Estimat Glomerular Filtration Rate 39.3 mL/min (>60) Glucose Level 94 mg/dL (74-106) Calcium Level 8.2 mg/dL (8.6-10.2) L Ammonia 130 umol/L (11-51) H Troponin I < 0.30 ng/mL (<=0.30) Lactic Acid Level 1.50 mmol/L (0.66-2.22) Current Medications Medications (Trade) Dose Ordered Sig/Gill Route PRN Reason Start Time Stop Time Status Last Admin Dose Admin Al Hydroxide/Mg Hydroxide (Mylanta II) 30 ml Q6H PRN NG dyspepsia 02/15/17 21:00 03/17/17 20:59 Aripiprazole (Abilify) 10 mg DAILY NG 02/16/17 09:00 03/18/17 08:59 02/16/17 08:50 Dextrose (Dextrose 50%) STAT PRN IV Hypoglycemia 02/15/17 21:00 03/17/17 20:59 Haloperidol Lactate (Haldol) 5 mg Q4H PRN IM Agitation 02/15/17 21:00 03/17/17 20:59 Ibuprofen (Children's Advil) 600 mg Q8H PRN GT MILD-MODERATE PAIN 02/15/17 21:00 03/17/17 20:59 Lactulose (Cephulac) 30 gm EVERY 8 HOURS NG 02/15/17 22:00 03/17/17 21:59 02/16/17 14:01 Lansoprazole (Prevacid) 30 mg ACBREAKFAST NG 02/16/17 06:30 03/18/17 06:29 02/16/17 06:16 Lorazepam (Ativan) 1 mg Q4HR NG 02/15/17 21:00 02/22/17 20:59 Morphine Sulfate (Morphine Sulfate) 2 mg Q4H PRN IVP SEVERE PAIN 02/15/17 21:30 02/22/17 21:29 Norepinephrine Bitartrate 4 mg/ Dextrose 250 ml @ 0 mls/hr Q24H IV 02/15/17 22:00 03/17/17 21:59 02/15/17 22:10 Ondansetron HCl (Zofran) 4 mg Q6H PRN IVP Nausea & Vomiting 02/15/17 21:00 03/17/17 20:59 Polyethylene Glycol (Miralax) 17 gm HSPRN PRN NG Constipation 02/15/17 21:00 03/17/17 20:59 Quetiapine Fumarate (SEROquel) 100 mg QHS NG 02/15/17 21:00 03/17/17 20:59 Rifaximin (Xifaxan) 550 mg EVERY 12 HOURS NG 02/15/17 21:00 02/22/17 20:59 02/16/17 08:50 Sodium Chloride 1,000 ml @ 100 mls/hr Q10H IV 02/15/17 22:15 03/17/17 22:14 02/16/17 07:51 Valproic Acid (Depakene) 500 mg Q12HR GT 02/15/17 21:00 03/17/17 20:59 02/16/17 08:49 Vancomycin HCl 1 ea 1 ea DAILY PRN MISC .Per Rx Protocol 02/16/17 09:00 03/18/17 08:59 Vancomycin HCl/ Dextrose (Vancomycin/D5W) 275 ml @ 183.708 mls/hr Q24H IVPB 02/16/17 08:00 02/21/17 07:59 02/16/17 07:52 Pura Klein M.D. February 16, 2017 16:13
--- NOTE | 2017-02-16 16:27 | Wound Care Consultation ---
Wound Assessment Wound Assessment #1: Wound Present on Admission: No New Wound: Yes Status Change of Wound: No Wound Location Body Site: perineal area Wound Type: chemical burn Teto Test: Does not Teto Percent of Wound [place]/Red: 100 Wound Drainage Amount: None Wound Drainage Odor: None/Absent Tissue Surrounding Wound: Erythemic Wound General Appearance: Reddened Wound Assessment #2: Wound Location Body Site: sacral Wound Type: pressure ulcer Wound Comment #1 Chemical burn on perineal area Recommendation -Local wound care per protocol with skin barrier to protect the skin from breaking down -Turn and reposition -Keep clean and dry -Offload both heels -Heel protector on both heels -Optimize nutrition -Assess and f/u accordingly for any changes MATEO MATTHEWS RN February 16, 2017 16:27
[2017-02-16 16:47] LABS: APPEARANCE,URINE CLOUDY; KETONES,URINE 1+ (NEGATIVE); LEUKOCYTE ESTERASE ,URINE 3+ (NEGATIVE); NITRITE,URINE NEGATIVE (NEGATIVE); PH,URINE 5 (4.5-8.0); PROTEIN,URINE 2+ (NEGATIVE); UROBILINOGEN,URINE 4 MG/DL (0.0-1.0)
--- NOTE | 2017-02-16 16:58 | Cardiology Report ---
APPROVED REPORT EXAM: Two-dimensional and M-mode echocardiogram with Doppler and color Doppler. INDICATION Chest Pain M-Mode DIMENSIONS IVSd1.0 (0.7-1.1cm)Left Atrium (MM)3.8 (1.6-4.0cm) LVDd6.1 (3.5-5.6cm)Aortic Root2.5 (2.0-3.7cm) PWd0.9 (0.7-1.1cm)Aortic Cusp Exc.2.0 (1.5-2.0cm) LVDs4.1 (2.5-4.0cm) PWs1.4 cm Mild left ventricular enlargement. Normal left ventricular systolic function and wall motion. Left ventricular ejection fraction estimated to be 55 %. No evidence of ventricular hypertrophy. No evidence of pericardial fat or effusion. Mild right ventricular enlargement. Right atrial chamber size is within normal limits. Left atrial chamber size is within normal limits. Mild focal aortic valve sclerosis with adequate cusp excursion. Mildly thickened mitral valve leaflets with normal excursion. Mild mitral annulus and aortic root calcification. Normal pulmonic valve structure. Normal tricuspid valve structure. IVC dilated at 3.2 cm without physiologic collapse, estimated RAP is 15 mmHg. A color flow and spectral Doppler study was performed and revealed: No aortic regurgitation. Mild mitral regurgitation. Mitral inflow velocities indicates E/A equalization. Mild tricuspid regurgitation. Tricuspid systolic velocities suggests peak right ventricular systolic pressure of 32 mmHg. No pulmonic regurgitation present.
[2017-02-16 17:03] LABS: BACTERIA,URINE MANY /HPF; RBC,URINE TNTC /HPF (0 - 2); SQUAMOUS EPITHELIAL CELL,UR FEW /LPF (NONE/OCC); WBC,URINE TNTC /HPF (0 - 2)
[2017-02-16] MEDS: Morphine Sulfate 2mg/ml Inj IVP PRN (17:45)
--- NOTE | 2017-02-16 22:09 | Consultation ---
DATE OF CONSULTATION: CARDIOLOGY CONSULTATION REFERRING PHYSICIAN: Adolfo Busch D.O. REASON FOR CONSULTATION: Hypotension. HISTORY OF PRESENT ILLNESS: The patient is a 51-year-old lady with a history of hypertension, bipolar disorder, who was admitted on 02/10/2017 with altered mental status, confusion, and irritability. The patient was on telemetry floor, however, he became hypotensive and had a rapid response and was transferred to intensive care unit where the patient was started on Levophed drip. Cardiology consultation was then obtained for further evaluation. At the time of my evaluation, the patient is nonverbal, agitated, and had NG tube in, but Levophed was just turned off. PAST MEDICAL HISTORY: 1. Hypertension. 2. Schizophrenia. 3. Liver cirrhosis. 4. History of encephalopathy. 5. Malnutrition. FAMILY HISTORY: Noncontributory. REVIEW OF SYSTEMS: Cannot be obtained. PHYSICAL EXAMINATION: VITAL SIGNS: Blood pressure is 84/46 and improved to 91/52, pulse is 80, respiration is 19, and she is afebrile. HEAD AND NECK: No JVD. LUNGS: Clear. CARDIOVASCULAR: Regular S1 and S2 with no gallop or murmur. ABDOMEN: Her NG tube is in. Abdomen is soft. EXTREMITIES: There is 1+ pitting edema. LABORATORY AND DIAGNOSTIC DATA: White count 7.5, hemoglobin 11.4, hematocrit 34.1, and platelet count of 95,000. Sodium 139, potassium 4.4, BUN 46, creatinine 1.4, and glucose of 96. Troponin is negative. Note that the patient had an echocardiogram, it also showed normal ejection fraction of 55% with no evidence of pericardial effusion. The case was discussed with the intensive care unit nurses as well. ASSESSMENT AND PLAN: 1. Hypotension, likely due to volume depletion and possible sepsis. The patient is just off of pressors. The first set of cardiac enzymes are negative. 2. Sinus tachycardia due to sepsis. Heart rate is better probably discontinue if the blood pressures were less than 100. Especially, the patient was restarted on Levophed. 3. Schizophrenia, on Haldol. 4. Cirrhosis of the liver, on and lactulose. Thank very much, Dr. Busch, for allowing me to participate in the care of this patient. Please do not hesitate to contact me for any questions regarding my evaluation. García Burleson M.D. DR: TONIE JOB#: [id number] CC:
--- NOTE | 2017-02-16 23:04 | Nephrology Progress Note ---
Assessment/Plan Problem List: (1) Hypernatremia (2) Hypotension (3) Shock (4) SHERIE (acute kidney injury) (5) Psychiatric disorder (6) UTI (urinary tract infection) (7) Liver cirrhosis (8) Encephalopathy, multifactorial, hepatic/septic/renal Plan cont d5w ivf. monitor labs. Subjective Subjective late entry for 02/15 - no acute events. Objective Objective Last 24 Hour Vital Signs Date Time Temp Pulse Resp B/P Pulse Ox O2 Delivery O2 Flow Rate FiO2 02/16/17 22:30 63 14 92/50 97 Nasal Cannula 2.0 02/16/17 22:00 59 12 110/50 97 Nasal Cannula 2.0 02/16/17 21:30 67 15 109/42 95 Nasal Cannula 2.0 02/16/17 21:00 60 12 80/39 96 Nasal Cannula 2.0 02/16/17 21:00 80/39 02/16/17 20:00 80/39 02/16/17 20:00 71 02/16/17 20:00 97.5 67 12 126/46 96 Nasal Cannula 2.0 02/16/17 19:07 Nasal Cannula 2.0 28 02/16/17 19:07 96 Nasal Cannula 2.0 28 02/16/17 19:00 71 15 73/40 93 Nasal Cannula 2.0 02/16/17 18:15 97.5 02/16/17 18:00 73 15 98/43 94 Nasal Cannula 2.0 02/16/17 17:00 79 19 104/51 94 Nasal Cannula 2.0 02/16/17 16:00 97.5 71 21 107/47 95 Nasal Cannula 2.0 02/16/17 16:00 77 02/16/17 15:00 69 17 94/43 96 Nasal Cannula 2.0 02/16/17 14:00 79 17 91/52 97 Nasal Cannula 2.0 02/16/17 13:00 73 18 108/47 95 Nasal Cannula 2.0 02/16/17 12:30 77 19 84/46 97 Nasal Cannula 2.0 02/16/17 12:15 80 18 112/60 94 Nasal Cannula 2.0 02/16/17 12:00 97.7 78 19 112/60 93 Nasal Cannula 2.0 02/16/17 12:00 82 02/16/17 12:00 112/60 02/16/17 11:45 77 17 101/52 95 Nasal Cannula 2.0 02/16/17 11:30 76 18 100/50 94 Nasal Cannula 2.0 02/16/17 11:15 77 18 98/64 95 Nasal Cannula 2.0 02/16/17 11:00 77 18 97/52 96 Nasal Cannula 2.0 02/16/17 11:00 126/60 02/16/17 10:45 75 17 100/57 96 Nasal Cannula 2.0 02/16/17 10:30 73 19 126/60 95 Nasal Cannula 2.0 02/16/17 10:15 74 20 110/50 95 Nasal Cannula 2.0 02/16/17 10:00 75 20 104/52 94 Nasal Cannula 2.0 02/16/17 10:00 104/52 02/16/17 09:45 76 19 96/56 94 Nasal Cannula 2.0 02/16/17 09:30 76 19 105/49 94 Nasal Cannula 2.0 02/16/17 09:15 77 19 100/52 94 Nasal Cannula 2.0 02/16/17 09:00 106/46 02/16/17 09:00 76 19 77/59 94 Nasal Cannula 2.0 02/16/17 08:45 77 20 106/45 93 Nasal Cannula 2.0 02/16/17 08:30 75 19 121/46 94 Nasal Cannula 2.0 02/16/17 08:15 76 19 120/49 93 Nasal Cannula 2.0 02/16/17 08:00 109/53 02/16/17 08:00 99.0 77 17 109/53 93 Nasal Cannula 2.0 02/16/17 08:00 78 02/16/17 07:45 70 17 111/57 96 Nasal Cannula 2.0 02/16/17 07:30 79 19 111/57 96 Nasal Cannula 2.0 02/16/17 07:15 78 19 95/78 97 Nasal Cannula 2.0 02/16/17 07:00 78 15 105/50 97 Nasal Cannula 2.0 02/16/17 06:30 76 18 103/59 98 Nasal Cannula 2.0 02/16/17 06:15 77 18 105/73 98 Nasal Cannula 2.0 02/16/17 06:00 71 13 109/54 100 Nasal Cannula 2.0 02/16/17 06:00 86/43 02/16/17 05:45 74 18 118/53 99 Nasal Cannula 2.0 02/16/17 05:30 73 18 86/43 99 Nasal Cannula 2.0 02/16/17 05:15 78 20 94/40 99 Nasal Cannula 2.0 02/16/17 05:00 81 20 114/80 99 Nasal Cannula 2.0 02/16/17 04:45 80 20 114/80 99 Nasal Cannula 2.0 02/16/17 04:30 81 21 103/50 98 Nasal Cannula 2.0 02/16/17 04:15 81 20 95/53 98 Nasal Cannula 2.0 02/16/17 04:00 61 02/16/17 04:00 97.3 82 21 101/55 97 Nasal Cannula 2.0 02/16/17 03:45 82 20 122/40 96 Nasal Cannula 2.0 02/16/17 03:30 81 20 78/44 96 Nasal Cannula 2.0 02/16/17 03:15 78 21 98/67 96 Nasal Cannula 2.0 02/16/17 03:00 79 22 121/50 96 Nasal Cannula 2.0 02/16/17 02:45 74 19 143/69 96 Nasal Cannula 2.0 02/16/17 02:30 73 19 122/53 96 Nasal Cannula 2.0 02/16/17 02:15 82 20 119/69 94 Nasal Cannula 2.0 02/16/17 02:00 79 20 88/46 94 Nasal Cannula 2.0 02/16/17 01:45 82 22 123/46 96 Nasal Cannula 2.0 02/16/17 01:30 75 20 111/45 96 Nasal Cannula 2.0 02/16/17 01:15 74 20 122/47 96 Nasal Cannula 2.0 02/16/17 01:00 76 20 119/47 96 Nasal Cannula 2.0 02/16/17 00:45 75 20 120/49 96 Nasal Cannula 2.0 02/16/17 00:30 75 20 96/46 96 Nasal Cannula 2.0 02/16/17 00:15 63 18 111/42 98 Nasal Cannula 2.0 02/16/17 00:00 65 18 115/53 97 Nasal Cannula 2.0 02/16/17 00:00 73/41 02/16/17 00:00 63 02/15/17 23:45 62 17 118/57 98 Nasal Cannula 2.0 02/15/17 23:30 62 17 73/41 98 Nasal Cannula 2.0 02/15/17 23:15 70 17 65/33 98 Nasal Cannula 2.0 Intake and Output 02/15/17 02/16/17 19:00 07:00 Intake Total 1370 ml 1302.5 ml Output Total 300 ml 910 ml Balance 1070 ml 392.5 ml Free Water 100 ml 200 ml IV Total 1000 ml 982.5 ml Tube Feeding 270 ml 60 ml Other 60 ml Output Urine Total 300 ml 910 ml Laboratory Tests 02/16/17 01:09: Arterial Blood pH 7.480H, Arterial Blood Partial Pressure CO2 34.9L, Arterial Blood Partial Pressure O2 90.8, Arterial Blood HCO3 25.4, Arterial Blood Oxygen Saturation 96.3, Arterial Blood Base Excess 2.2, Harley Test Positive 02/16/17 04:20: White Blood Count 7.4, Red Blood Count 3.49L, Hemoglobin 11.4L, Hematocrit 34.1L , Mean Corpuscular Volume 98, Mean Corpuscular Hemoglobin 32.6H, Mean Corpuscular Hemoglobin Concent 33.3, Red Cell Distribution Width 15.0H, Platelet Count 95L, Mean Platelet Volume 8.3, Neutrophils (%) (Auto) , Lymphocytes (%) (Auto) , Monocytes (%) (Auto) , Eosinophils (%) (Auto) , Basophils (%) (Auto) , Differential Total Cells Counted 100, Neutrophils % ( Manual) 82H, Lymphocytes % (Manual) 7L, Monocytes % (Manual) 9, Eosinophils % ( Manual) 2, Basophils % (Manual) 0, Band Neutrophils 0, Platelet Estimate DecreasedL, Platelet Morphology Normal, Red Blood Cell Morphology Normal, Sodium Level 139, Potassium Level 4.4, Chloride Level 106, Carbon Dioxide Level 21, Anion Gap 12, Blood Urea Nitrogen 46H, Creatinine 1.4H, Estimat Glomerular Filtration Rate 39.3, Glucose Level 94, Calcium Level 8.2L, Ammonia 130H, Troponin I < 0.30 02/16/17 05:55: Lactic Acid Level 1.50 02/16/17 12:20: Stool Occult Blood [Pending] 02/16/17 15:30: Urine Color Yellow, Urine Appearance Cloudy, Urine pH 5, Urine Specific [place] 1.020, Urine Protein 2+H, Urine Glucose (UA) Negative, Urine Ketones 1+H, Urine Occult Blood 5+H, Urine Nitrite Negative, Urine Bilirubin Negative, Urine Urobilinogen 4H, Urine Leukocyte Esterase 3+H, Urine RBC TntcH, Urine WBC TntcH , Urine Squamous Epithelial Cells Few, Urine Bacteria ManyH, Urine Opiates Screen Negative, Urine Barbiturates Screen Negative, Phencyclidine (PCP) Screen Negative, Urine Amphetamines Screen Negative, Urine Benzodiazepines Screen Negative, Urine Cocaine Screen Negative, Urine Marijuana (THC) Screen Negative Height (Feet): 5 Height (Inches): 6.00 Weight (Pounds): 130 General Appearance: no apparent distress Cardiovascular: normal rate, regular rhythm Respiratory/Chest: lungs clear Abdomen: non tender, soft PATRICK ENRIQUEZ February 16, 2017 23:04
[2017-02-16] MEDS: Aztreonam Inj 1 GM in D5W 55 ML IVPB SCH (23:06)
[2017-02-17] VITALS (42 sets, daily range): BP systolic 87–116; BP diastolic 43–65
[2017-02-17] MEDS: LORazepam 1mg tab NG SCH ×3 (01:00→08:31)
[2017-02-17 04:52] LABS: MEAN CORPUSCULAR HEMOGLOBIN 32.6 PG (27.0-31.0); MEAN CORPUSCULAR HGB CONC 33.7 G/DL (32.0-36.0); MEAN CORPUSCULAR VOLUME 97 FL (80-99); MEAN PLATELET VOLUME 8.8 FL (6.5-10.1); PLATELET COUNT 72 K/UL (150-450); RED BLOOD COUNT 2.96 M/UL (4.20-5.40); RED CELL DISTRIBUTION WIDTH 15.2 % (11.6-14.8); WHITE BLOOD COUNT 5.6 K/UL (4.8-10.8)
[2017-02-17 05:39] LABS: ALBUMIN/GLOBULIN RATIO 0.3 (1.0-2.7); CALCIUM 7.9 mg/dL (8.6-10.2); CREATININE 1.3 mg/dL (0.5-0.9); GLOMERULAR FILTRATION RATE 42.8 mL/min (>60); MAGNESIUM 2.2 mg/dL (1.7-2.5); PHOSPHORUS 3.8 mg/dL (2.5-4.8); POTASSIUM 4.2 mEQ/L (3.4-4.9); TOTAL PROTEIN 6.4 g/dL (6.6-8.7)
[2017-02-17] MEDS: Lactulose 20gm/30ml UDC NG SCH ×3 (05:55→21:55)
[2017-02-17] MEDS: Aztreonam Inj 1 GM in D5W 55 ML IVPB SCH ×3 (05:56→21:56)
[2017-02-17 06:02] LABS: BILIRUBIN,DIRECT 0.7 mg/dL (0.1-0.3)
[2017-02-17 06:53] LABS: TROPONIN I < 0.30 ng/mL (<=0.30)
[2017-02-17 07:05] LABS: THYROID STIMULATING HORMONE 1.74 uIU/mL (0.300-4.500)
[2017-02-17 08:13] LABS: BAND NEUTROPHILS % (MANUAL) 0 % (0-8); BASOPHILS % (MANUAL) 0 % (0-2); EOSINOPHILS % (MANUAL) 5 % (0-3); LYMPHOCYTES % (MANUAL) 17 % (20-45); NEUTROPHILS % (MANUAL) 75 % (45-75); PLATELET ESTIMATE DECREASED; PLATELET MORPHOLOGY NORMAL; TOTAL CELLS COUNTED 100
[2017-02-17] MEDS: ARIPiprazole 10mg tab NG SCH (08:30)
[2017-02-17] MEDS: Vancomycin 750mg/D5W 275ml IVPB SCH ×2 (08:30)
[2017-02-17] MEDS: Valproic Acid 250mg/5ml Liquid GT SCH ×2 (08:30→21:10)
[2017-02-17] MEDS: Rifaximin 550mg tab NG SCH ×2 (08:31→21:10)
[2017-02-17 08:47] LABS: ABG ALLEN TEST POSITIVE; ABG BASE EXCESS -1.6
[2017-02-17] MEDS ORDERED: Tubing IV Secondary IV ONE (09:36)
--- NOTE | 2017-02-17 10:13 | Pulmonolgy Critical Care Note ---
Critical Care - Asmt/Plan Problems: (1) Shock (2) Liver cirrhosis (3) Encephalopathy (4) UTI (urinary tract infection) (5) Severe malnutrition (6) Psychiatric disorder (7) SHERIE (acute kidney injury) Respiratory: monitor respiratory rate, adjust FIO2, weaning trial Cardiac: continue pressors Renal: F/U I&O, keep IV fluid, check electrolytes Infectious Disease: check cultures, continue antibiotics Gastrointestinal: continue feedings/current rate Endocrine: monitor blood sugar, continue sliding scale insulin Hematologic: monitor H/H, transfuse if hgb<8.5 Neurologic: PRN Ativan, PRN Morphine, keep patient comfortable Affect: PRN ativan Prophylaxis: Protonix, Heparin Disposition: keep in ICU Notes Reviewed: renal Discussed with: nurses, consultants, skilled nursing case managermanager supply chain - Objective Last 24 Hour Vital Signs Date Time Temp Pulse Resp B/P Pulse Ox O2 Delivery O2 Flow Rate FiO2 02/17/17 09:15 74 15 97/50 97 Nasal Cannula 3.0 02/17/17 09:00 113/54 02/17/17 09:00 71 16 113/54 97 Nasal Cannula 3.0 02/17/17 08:45 65 13 94/51 98 Nasal Cannula 3.0 02/17/17 08:30 69 16 102/48 95 Nasal Cannula 3.0 02/17/17 08:15 69 16 98/48 95 Nasal Cannula 3.0 02/17/17 08:00 98.0 71 15 99/51 93 Nasal Cannula 3.0 02/17/17 08:00 99/51 02/17/17 08:00 73 02/17/17 07:45 71 16 94/54 93 Nasal Cannula 3.0 02/17/17 07:30 69 16 116/56 92 Nasal Cannula 3.0 02/17/17 07:15 68 16 111/55 96 Nasal Cannula 3.0 02/17/17 07:00 63 16 111/55 96 Nasal Cannula 2.0 02/17/17 06:30 64 16 99/55 95 Nasal Cannula 2.0 02/17/17 06:00 69 15 97/50 95 Nasal Cannula 2.0 02/17/17 05:30 63 14 97/50 96 Nasal Cannula 2.0 02/17/17 05:00 66 16 104/53 97 Nasal Cannula 2.0 02/17/17 04:30 67 16 104/53 97 Nasal Cannula 2.0 02/17/17 04:00 97.9 64 16 110/54 96 Nasal Cannula 2.0 02/17/17 04:00 66 02/17/17 03:30 65 14 106/48 97 Nasal Cannula 2.0 02/17/17 03:00 64 16 111/51 97 Nasal Cannula 2.0 02/17/17 02:30 66 14 103/51 97 Nasal Cannula 2.0 02/17/17 02:00 66 15 100/49 97 Nasal Cannula 2.0 02/17/17 02:00 100/49 02/17/17 01:30 67 16 106/50 94 Nasal Cannula 2.0 02/17/17 01:00 60 14 104/65 98 Nasal Cannula 2.0 02/17/17 00:30 65 14 99/47 96 Nasal Cannula 2.0 02/17/17 00:00 68 02/17/17 00:00 97.9 69 15 102/48 96 Nasal Cannula 2.0 02/16/17 23:30 64 15 116/56 96 Nasal Cannula 2.0 02/16/17 23:00 99/53 02/16/17 23:00 56 14 99/53 97 Nasal Cannula 2.0 02/16/17 22:30 63 14 92/50 97 Nasal Cannula 2.0 02/16/17 22:00 59 12 110/50 97 Nasal Cannula 2.0 02/16/17 22:00 78/45 02/16/17 21:30 67 15 109/42 95 Nasal Cannula 2.0 02/16/17 21:00 60 12 80/39 96 Nasal Cannula 2.0 02/16/17 21:00 80/39 02/16/17 20:00 80/39 02/16/17 20:00 71 02/16/17 20:00 97.5 67 12 126/46 96 Nasal Cannula 2.0 02/16/17 19:07 Nasal Cannula 2.0 28 02/16/17 19:07 96 Nasal Cannula 2.0 28 02/16/17 19:00 71 15 73/40 93 Nasal Cannula 2.0 02/16/17 18:15 97.5 02/16/17 18:00 73 15 98/43 94 Nasal Cannula 2.0 02/16/17 17:00 79 19 104/51 94 Nasal Cannula 2.0 02/16/17 16:00 97.5 71 21 107/47 95 Nasal Cannula 2.0 02/16/17 16:00 77 02/16/17 15:00 69 17 94/43 96 Nasal Cannula 2.0 02/16/17 14:00 79 17 91/52 97 Nasal Cannula 2.0 02/16/17 13:00 73 18 108/47 95 Nasal Cannula 2.0 02/16/17 12:30 77 19 84/46 97 Nasal Cannula 2.0 02/16/17 12:15 80 18 112/60 94 Nasal Cannula 2.0 02/16/17 12:00 97.7 78 19 112/60 93 Nasal Cannula 2.0 02/16/17 12:00 82 02/16/17 12:00 112/60 02/16/17 11:45 77 17 101/52 95 Nasal Cannula 2.0 02/16/17 11:30 76 18 100/50 94 Nasal Cannula 2.0 02/16/17 11:15 77 18 98/64 95 Nasal Cannula 2.0 02/16/17 11:00 77 18 97/52 96 Nasal Cannula 2.0 02/16/17 11:00 126/60 02/16/17 10:45 75 17 100/57 96 Nasal Cannula 2.0 02/16/17 10:30 73 19 126/60 95 Nasal Cannula 2.0 02/16/17 10:15 74 20 110/50 95 Nasal Cannula 2.0 Status: obtunded Condition: critical HEENT: atraumatic Neck: full ROM Lungs: chest wall tender Heart: HR/BP stable Abdomen: soft, active bowel sounds Extremities: no C/C/E, edema Decubiti: location Accucheck: 208 Critical Care - Subjective ROS Limited/Unobtainable: Yes ICU Day: late note for 02/16. Condition: critical EKG Rhythm: Sinus Rhythm FI02: 28 Fluids: on and off levophed Drips: NS 100 cc.hour Tube Feeding Amount: 30 I&O: Intake and Output 02/16/17 02/17/17 19:00 07:00 Intake Total 1830.000 ml 1938.75 ml Output Total 770 ml 1180 ml Balance 1060.000 ml 758.75 ml Free Water 100 ml IV Total 1220.000 ml 1298.75 ml Tube Feeding 360 ml 390 ml Other 150 ml 250 ml Output Urine Total 770 ml 1180 ml # Bowel Movements 4 CXR: no change MANFRED YING February 17, 2017 10:13
--- NOTE | 2017-02-17 10:17 | Pulmonolgy Critical Care Note ---
Critical Care - Asmt/Plan Problems: (1) Shock (2) Liver cirrhosis (3) Encephalopathy (4) UTI (urinary tract infection) (5) Severe malnutrition (6) Psychiatric disorder (7) SHERIE (acute kidney injury) Respiratory: monitor respiratory rate Cardiac: continue pressors, stop pressors, continue to monitor HR/BP Renal: F/U I&O, keep IV fluid, check electrolytes Infectious Disease: check cultures Gastrointestinal: continue feedings/current rate Endocrine: monitor blood sugar, check TSH, continue sliding scale insulin Hematologic: monitor H/H, transfuse if hgb<8.5 Neurologic: PRN Ativan, keep patient comfortable Affect: PRN ativan Prophylaxis: Heparin Notes Reviewed: cardio, renal Discussed with: nurses, consultants, child support case officersenior technical project manager - Objective Last 24 Hour Vital Signs Date Time Temp Pulse Resp B/P Pulse Ox O2 Delivery O2 Flow Rate FiO2 02/17/17 09:15 74 15 97/50 97 Nasal Cannula 3.0 02/17/17 09:00 113/54 02/17/17 09:00 71 16 113/54 97 Nasal Cannula 3.0 02/17/17 08:45 65 13 94/51 98 Nasal Cannula 3.0 02/17/17 08:30 69 16 102/48 95 Nasal Cannula 3.0 02/17/17 08:15 69 16 98/48 95 Nasal Cannula 3.0 02/17/17 08:00 98.0 71 15 99/51 93 Nasal Cannula 3.0 02/17/17 08:00 99/51 02/17/17 08:00 73 02/17/17 07:45 71 16 94/54 93 Nasal Cannula 3.0 02/17/17 07:30 69 16 116/56 92 Nasal Cannula 3.0 02/17/17 07:15 68 16 111/55 96 Nasal Cannula 3.0 02/17/17 07:00 63 16 111/55 96 Nasal Cannula 2.0 02/17/17 06:30 64 16 99/55 95 Nasal Cannula 2.0 02/17/17 06:00 69 15 97/50 95 Nasal Cannula 2.0 02/17/17 05:30 63 14 97/50 96 Nasal Cannula 2.0 02/17/17 05:00 66 16 104/53 97 Nasal Cannula 2.0 02/17/17 04:30 67 16 104/53 97 Nasal Cannula 2.0 02/17/17 04:00 97.9 64 16 110/54 96 Nasal Cannula 2.0 02/17/17 04:00 66 02/17/17 03:30 65 14 106/48 97 Nasal Cannula 2.0 02/17/17 03:00 64 16 111/51 97 Nasal Cannula 2.0 02/17/17 02:30 66 14 103/51 97 Nasal Cannula 2.0 02/17/17 02:00 66 15 100/49 97 Nasal Cannula 2.0 02/17/17 02:00 100/49 02/17/17 01:30 67 16 106/50 94 Nasal Cannula 2.0 02/17/17 01:00 60 14 104/65 98 Nasal Cannula 2.0 02/17/17 00:30 65 14 99/47 96 Nasal Cannula 2.0 02/17/17 00:00 68 02/17/17 00:00 97.9 69 15 102/48 96 Nasal Cannula 2.0 02/16/17 23:30 64 15 116/56 96 Nasal Cannula 2.0 02/16/17 23:00 99/53 02/16/17 23:00 56 14 99/53 97 Nasal Cannula 2.0 02/16/17 22:30 63 14 92/50 97 Nasal Cannula 2.0 02/16/17 22:00 59 12 110/50 97 Nasal Cannula 2.0 02/16/17 22:00 78/45 02/16/17 21:30 67 15 109/42 95 Nasal Cannula 2.0 02/16/17 21:00 60 12 80/39 96 Nasal Cannula 2.0 02/16/17 21:00 80/39 02/16/17 20:00 80/39 02/16/17 20:00 71 02/16/17 20:00 97.5 67 12 126/46 96 Nasal Cannula 2.0 02/16/17 19:07 Nasal Cannula 2.0 28 02/16/17 19:07 96 Nasal Cannula 2.0 28 02/16/17 19:00 71 15 73/40 93 Nasal Cannula 2.0 02/16/17 18:15 97.5 02/16/17 18:00 73 15 98/43 94 Nasal Cannula 2.0 02/16/17 17:00 79 19 104/51 94 Nasal Cannula 2.0 02/16/17 16:00 97.5 71 21 107/47 95 Nasal Cannula 2.0 02/16/17 16:00 77 02/16/17 15:00 69 17 94/43 96 Nasal Cannula 2.0 02/16/17 14:00 79 17 91/52 97 Nasal Cannula 2.0 02/16/17 13:00 73 18 108/47 95 Nasal Cannula 2.0 02/16/17 12:30 77 19 84/46 97 Nasal Cannula 2.0 02/16/17 12:15 80 18 112/60 94 Nasal Cannula 2.0 02/16/17 12:00 97.7 78 19 112/60 93 Nasal Cannula 2.0 02/16/17 12:00 82 02/16/17 12:00 112/60 02/16/17 11:45 77 17 101/52 95 Nasal Cannula 2.0 02/16/17 11:30 76 18 100/50 94 Nasal Cannula 2.0 02/16/17 11:15 77 18 98/64 95 Nasal Cannula 2.0 02/16/17 11:00 77 18 97/52 96 Nasal Cannula 2.0 02/16/17 11:00 126/60 02/16/17 10:45 75 17 100/57 96 Nasal Cannula 2.0 02/16/17 10:30 73 19 126/60 95 Nasal Cannula 2.0 Status: awake Condition: critical, grave HEENT: atraumatic, normocephalic Neck: full ROM Lungs: clear Heart: HR/BP stable, HR/BP unstable, regular Abdomen: soft, non-tender, feeding tube Extremities: no C/C/E, edema Decubiti: location Accucheck: 208 Critical Care - Subjective ROS Limited/Unobtainable: Yes ICU Day: 3 Condition: critical EKG Rhythm: Sinus Rhythm FI02: 28 Fluids: d5ns 100 cc Drips: levophed drip Tube Feeding Amount: 30 I&O: Intake and Output 02/16/17 02/17/17 19:00 07:00 Intake Total 1830.000 ml 1938.75 ml Output Total 770 ml 1180 ml Balance 1060.000 ml 758.75 ml Free Water 100 ml IV Total 1220.000 ml 1298.75 ml Tube Feeding 360 ml 390 ml Other 150 ml 250 ml Output Urine Total 770 ml 1180 ml # Bowel Movements 4 CXR: no change Labs: Laboratory Tests Test 02/16/17 12:20 02/16/17 15:30 02/17/17 04:00 02/17/17 08:34 Stool Occult Blood Pending Urine Color Yellow Urine Appearance Cloudy Urine pH 5 (4.5-8.0) Urine Specific [place] 1.020 (1.005-1.035) Urine Protein 2+ (NEGATIVE) H Urine Glucose (UA) Negative (NEGATIVE) Urine Ketones 1+ (NEGATIVE) H Urine Occult Blood 5+ (NEGATIVE) H Urine Nitrite Negative (NEGATIVE) Urine Bilirubin Negative (NEGATIVE) Urine Urobilinogen 4 MG/DL (0.0-1.0) H Urine Leukocyte Esterase 3+ (NEGATIVE) H Urine RBC Tntc /HPF (0 - 2) H Urine WBC Tntc /HPF (0 - 2) H Urine Squamous Epithelial Cells Few /LPF (NONE/OCC) Urine Bacteria Many /HPF (NONE) H Urine Opiates Screen Negative (NEGATIVE) Urine Barbiturates Screen Negative (NEGATIVE) Phencyclidine (PCP) Screen Negative (NEGATIVE) Urine Amphetamines Screen Negative (NEGATIVE) Urine Benzodiazepines Screen Negative (NEGATIVE) Urine Cocaine Screen Negative (NEGATIVE) Urine Marijuana (THC) Screen Negative (NEGATIVE) White Blood Count 5.6 K/UL (4.8-10.8) Red Blood Count 2.96 M/UL (4.20-5.40) L Hemoglobin 9.6 G/DL (12.0-16.0) L Hematocrit 28.6 % (37.0-47.0) L Mean Corpuscular Volume 97 FL (80-99) Mean Corpuscular Hemoglobin 32.6 PG (27.0-31.0) H Mean Corpuscular Hemoglobin Concent 33.7 G/DL (32.0-36.0) Red Cell Distribution Width 15.2 % (11.6-14.8) H Platelet Count 72 K/UL (150-450) L Mean Platelet Volume 8.8 FL (6.5-10.1) Neutrophils (%) (Auto) % (45.0-75.0) Lymphocytes (%) (Auto) % (20.0-45.0) Monocytes (%) (Auto) % (1.0-10.0) Eosinophils (%) (Auto) % (0.0-3.0) Basophils (%) (Auto) % (0.0-2.0) Differential Total Cells Counted 100 Neutrophils % (Manual) 75 % (45-75) Lymphocytes % (Manual) 17 % (20-45) L Monocytes % (Manual) 3 % (1-10) Eosinophils % (Manual) 5 % (0-3) H Basophils % (Manual) 0 % (0-2) Band Neutrophils 0 % (0-8) Platelet Estimate Decreased L Platelet Morphology Normal Red Blood Cell Morphology Normal Sodium Level 144 mEQ/L (135-145) Potassium Level 4.2 mEQ/L (3.4-4.9) Chloride Level 111 mEQ/L (98-107) H Carbon Dioxide Level 23 mEQ/L (20-30) Anion Gap 10 (5-15) Blood Urea Nitrogen 36 mg/dL (7-23) H Creatinine 1.3 mg/dL (0.5-0.9) H Estimat Glomerular Filtration Rate 42.8 mL/min (>60) Glucose Level 140 mg/dL (74-106) H Calcium Level 7.9 mg/dL (8.6-10.2) L Phosphorus Level 3.8 mg/dL (2.5-4.8) Magnesium Level 2.2 mg/dL (1.7-2.5) Total Bilirubin 1.4 mg/dL (0.0-1.2) H Direct Bilirubin 0.7 mg/dL (0.1-0.3) H Aspartate Amino Transf (AST/SGOT) 39 U/L (5-40) Alanine Aminotransferase (ALT/SGPT) 17 U/L (3-33) Alkaline Phosphatase 115 U/L (35-104) H Ammonia 83 umol/L (11-51) H Troponin I < 0.30 ng/mL (<=0.30) Total Protein 6.4 g/dL (6.6-8.7) L Albumin 1.5 g/dL (3.5-5.2) L Globulin 4.9 g/dL Albumin/Globulin Ratio 0.3 (1.0-2.7) L Thyroid Stimulating Hormone (TSH) 1.740 uIU/mL (0.300-4.500) Free Thyroxine 1.09 ng/dL (0.86-1.85) Arterial Blood pH 7.450 (7.350-7.450) Arterial Blood Partial Pressure CO2 32.0 mmHg (35.0-45.0) L Arterial Blood Partial Pressure O2 67.0 mmHg (75.0-100.0) L Arterial Blood HCO3 21.7 mmol/L (22.0-26.0) L Arterial Blood Oxygen Saturation 93.0 % (92.0-98.0) Arterial Blood Base Excess -1.6 Harley Test Positive MANFRED YING February 17, 2017 10:17
--- NOTE | 2017-02-17 10:21 | GI Progress Note ---
Assessment/Plan Problems: (1) Severe malnutrition ICD Codes: E43 - Unspecified severe protein-calorie malnutrition SNOMED: 18820214 (2) Altered mental state ICD Codes: R41.82 - Altered mental status, unspecified SNOMED: 743534272, 549258015 Qualifiers: Qualified Codes: R41.82 - Altered mental status, unspecified (3) Encephalopathy, multifactorial, hepatic/septic/renal (4) Encephalopathy ICD Codes: G93.40 - Encephalopathy, unspecified SNOMED: 24565346, 450909991 (5) Liver cirrhosis ICD Codes: K74.60 - Unspecified cirrhosis of liver SNOMED: 78596989 Qualifiers: Qualified Codes: K74.60 - Unspecified cirrhosis of liver Status: unchanged Status Narrative Discussed with Dr. Gil. Assessment/Plan hep panel negative hypernatremia >> resolved, reduce lactulose to help Na elevated ammonia >> cont lactulose + Xifaxan NGTFs per dietary fu OB stool ppi monitor LFTs fu labs Subjective Subjective limited, calm Objective Last 24 Hour Vital Signs Date Time Temp Pulse Resp B/P Pulse Ox O2 Delivery O2 Flow Rate FiO2 02/17/17 09:15 74 15 97/50 97 Nasal Cannula 3.0 02/17/17 09:00 113/54 02/17/17 09:00 71 16 113/54 97 Nasal Cannula 3.0 02/17/17 08:45 65 13 94/51 98 Nasal Cannula 3.0 02/17/17 08:30 69 16 102/48 95 Nasal Cannula 3.0 02/17/17 08:15 69 16 98/48 95 Nasal Cannula 3.0 02/17/17 08:00 98.0 71 15 99/51 93 Nasal Cannula 3.0 02/17/17 08:00 99/51 02/17/17 08:00 73 02/17/17 07:45 71 16 94/54 93 Nasal Cannula 3.0 02/17/17 07:30 69 16 116/56 92 Nasal Cannula 3.0 02/17/17 07:15 68 16 111/55 96 Nasal Cannula 3.0 02/17/17 07:00 63 16 111/55 96 Nasal Cannula 2.0 02/17/17 06:30 64 16 99/55 95 Nasal Cannula 2.0 02/17/17 06:00 69 15 97/50 95 Nasal Cannula 2.0 02/17/17 05:30 63 14 97/50 96 Nasal Cannula 2.0 02/17/17 05:00 66 16 104/53 97 Nasal Cannula 2.0 02/17/17 04:30 67 16 104/53 97 Nasal Cannula 2.0 02/17/17 04:00 97.9 64 16 110/54 96 Nasal Cannula 2.0 02/17/17 04:00 66 02/17/17 03:30 65 14 106/48 97 Nasal Cannula 2.0 02/17/17 03:00 64 16 111/51 97 Nasal Cannula 2.0 02/17/17 02:30 66 14 103/51 97 Nasal Cannula 2.0 02/17/17 02:00 66 15 100/49 97 Nasal Cannula 2.0 02/17/17 02:00 100/49 02/17/17 01:30 67 16 106/50 94 Nasal Cannula 2.0 02/17/17 01:00 60 14 104/65 98 Nasal Cannula 2.0 02/17/17 00:30 65 14 99/47 96 Nasal Cannula 2.0 02/17/17 00:00 68 02/17/17 00:00 97.9 69 15 102/48 96 Nasal Cannula 2.0 02/16/17 23:30 64 15 116/56 96 Nasal Cannula 2.0 02/16/17 23:00 99/53 02/16/17 23:00 56 14 99/53 97 Nasal Cannula 2.0 02/16/17 22:30 63 14 92/50 97 Nasal Cannula 2.0 02/16/17 22:00 59 12 110/50 97 Nasal Cannula 2.0 02/16/17 22:00 78/45 02/16/17 21:30 67 15 109/42 95 Nasal Cannula 2.0 02/16/17 21:00 60 12 80/39 96 Nasal Cannula 2.0 02/16/17 21:00 80/39 02/16/17 20:00 80/39 02/16/17 20:00 71 02/16/17 20:00 97.5 67 12 126/46 96 Nasal Cannula 2.0 02/16/17 19:07 Nasal Cannula 2.0 28 02/16/17 19:07 96 Nasal Cannula 2.0 28 02/16/17 19:00 71 15 73/40 93 Nasal Cannula 2.0 02/16/17 18:15 97.5 02/16/17 18:00 73 15 98/43 94 Nasal Cannula 2.0 02/16/17 17:00 79 19 104/51 94 Nasal Cannula 2.0 02/16/17 16:00 97.5 71 21 107/47 95 Nasal Cannula 2.0 02/16/17 16:00 77 02/16/17 15:00 69 17 94/43 96 Nasal Cannula 2.0 02/16/17 14:00 79 17 91/52 97 Nasal Cannula 2.0 02/16/17 13:00 73 18 108/47 95 Nasal Cannula 2.0 02/16/17 12:30 77 19 84/46 97 Nasal Cannula 2.0 02/16/17 12:15 80 18 112/60 94 Nasal Cannula 2.0 02/16/17 12:00 97.7 78 19 112/60 93 Nasal Cannula 2.0 02/16/17 12:00 82 02/16/17 12:00 112/60 02/16/17 11:45 77 17 101/52 95 Nasal Cannula 2.0 02/16/17 11:30 76 18 100/50 94 Nasal Cannula 2.0 02/16/17 11:15 77 18 98/64 95 Nasal Cannula 2.0 02/16/17 11:00 77 18 97/52 96 Nasal Cannula 2.0 02/16/17 11:00 126/60 02/16/17 10:45 75 17 100/57 96 Nasal Cannula 2.0 02/16/17 10:30 73 19 126/60 95 Nasal Cannula 2.0 Intake and Output 02/16/17 02/17/17 19:00 07:00 Intake Total 1830.000 ml 1938.75 ml Output Total 770 ml 1180 ml Balance 1060.000 ml 758.75 ml Free Water 100 ml IV Total 1220.000 ml 1298.75 ml Tube Feeding 360 ml 390 ml Other 150 ml 250 ml Output Urine Total 770 ml 1180 ml # Bowel Movements 4 Laboratory Tests Test 02/16/17 12:20 02/16/17 15:30 02/17/17 04:00 02/17/17 08:34 Stool Occult Blood Pending Urine Color Yellow Urine Appearance Cloudy Urine pH 5 (4.5-8.0) Urine Specific [place] 1.020 (1.005-1.035) Urine Protein 2+ (NEGATIVE) H Urine Glucose (UA) Negative (NEGATIVE) Urine Ketones 1+ (NEGATIVE) H Urine Occult Blood 5+ (NEGATIVE) H Urine Nitrite Negative (NEGATIVE) Urine Bilirubin Negative (NEGATIVE) Urine Urobilinogen 4 MG/DL (0.0-1.0) H Urine Leukocyte Esterase 3+ (NEGATIVE) H Urine RBC Tntc /HPF (0 - 2) H Urine WBC Tntc /HPF (0 - 2) H Urine Squamous Epithelial Cells Few /LPF (NONE/OCC) Urine Bacteria Many /HPF (NONE) H Urine Opiates Screen Negative (NEGATIVE) Urine Barbiturates Screen Negative (NEGATIVE) Phencyclidine (PCP) Screen Negative (NEGATIVE) Urine Amphetamines Screen Negative (NEGATIVE) Urine Benzodiazepines Screen Negative (NEGATIVE) Urine Cocaine Screen Negative (NEGATIVE) Urine Marijuana (THC) Screen Negative (NEGATIVE) White Blood Count 5.6 K/UL (4.8-10.8) Red Blood Count 2.96 M/UL (4.20-5.40) L Hemoglobin 9.6 G/DL (12.0-16.0) L Hematocrit 28.6 % (37.0-47.0) L Mean Corpuscular Volume 97 FL (80-99) Mean Corpuscular Hemoglobin 32.6 PG (27.0-31.0) H Mean Corpuscular Hemoglobin Concent 33.7 G/DL (32.0-36.0) Red Cell Distribution Width 15.2 % (11.6-14.8) H Platelet Count 72 K/UL (150-450) L Mean Platelet Volume 8.8 FL (6.5-10.1) Neutrophils (%) (Auto) % (45.0-75.0) Lymphocytes (%) (Auto) % (20.0-45.0) Monocytes (%) (Auto) % (1.0-10.0) Eosinophils (%) (Auto) % (0.0-3.0) Basophils (%) (Auto) % (0.0-2.0) Differential Total Cells Counted 100 Neutrophils % (Manual) 75 % (45-75) Lymphocytes % (Manual) 17 % (20-45) L Monocytes % (Manual) 3 % (1-10) Eosinophils % (Manual) 5 % (0-3) H Basophils % (Manual) 0 % (0-2) Band Neutrophils 0 % (0-8) Platelet Estimate Decreased L Platelet Morphology Normal Red Blood Cell Morphology Normal Sodium Level 144 mEQ/L (135-145) Potassium Level 4.2 mEQ/L (3.4-4.9) Chloride Level 111 mEQ/L (98-107) H Carbon Dioxide Level 23 mEQ/L (20-30) Anion Gap 10 (5-15) Blood Urea Nitrogen 36 mg/dL (7-23) H Creatinine 1.3 mg/dL (0.5-0.9) H Estimat Glomerular Filtration Rate 42.8 mL/min (>60) Glucose Level 140 mg/dL (74-106) H Calcium Level 7.9 mg/dL (8.6-10.2) L Phosphorus Level 3.8 mg/dL (2.5-4.8) Magnesium Level 2.2 mg/dL (1.7-2.5) Total Bilirubin 1.4 mg/dL (0.0-1.2) H Direct Bilirubin 0.7 mg/dL (0.1-0.3) H Aspartate Amino Transf (AST/SGOT) 39 U/L (5-40) Alanine Aminotransferase (ALT/SGPT) 17 U/L (3-33) Alkaline Phosphatase 115 U/L (35-104) H Ammonia 83 umol/L (11-51) H Troponin I < 0.30 ng/mL (<=0.30) Total Protein 6.4 g/dL (6.6-8.7) L Albumin 1.5 g/dL (3.5-5.2) L Globulin 4.9 g/dL Albumin/Globulin Ratio 0.3 (1.0-2.7) L Thyroid Stimulating Hormone (TSH) 1.740 uIU/mL (0.300-4.500) Free Thyroxine 1.09 ng/dL (0.86-1.85) Arterial Blood pH 7.450 (7.350-7.450) Arterial Blood Partial Pressure CO2 32.0 mmHg (35.0-45.0) L Arterial Blood Partial Pressure O2 67.0 mmHg (75.0-100.0) L Arterial Blood HCO3 21.7 mmol/L (22.0-26.0) L Arterial Blood Oxygen Saturation 93.0 % (92.0-98.0) Arterial Blood Base Excess -1.6 Harley Test Positive Height (Feet): 5 Height (Inches): 6.00 Weight (Pounds): 130 General Appearance: no apparent distress, alert, agitated Cardiovascular: normal rate Respiratory/Chest: other - 2LNC Abdominal Exam: other - NGT Diamond Smith N.P. February 17, 2017 10:21
[2017-02-17] MEDS: Morphine Sulfate 2mg/ml Inj IVP PRN ×3 (12:29→21:51)
--- NOTE | 2017-02-17 13:16 | Diagnostic Imaging Report ---
Indication: Dyspnea Comparison: 02/16/17 A single view chest radiograph was obtained. Findings: NG tube is in good position unchanged. Heart size is stable. Lungs remain clear. 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
--- NOTE | 2017-02-17 14:08 | Cardiac Electrophysiology PN ---
Assessment/Plan Assessment/Plan 1. Hypotension, likely due to volume depletion and possible sepsis. Now off of pressors. Ruled out for SC. 2. Sinus tachycardia due to sepsis. Heart rate is better 3. Schizophrenia, on Haldol. 4. Cirrhosis of the liver, on lactulose 5. Dysphagia. Awaiting swallow eval. NG feeding in progress DW RN. Subjective Subjective In ICU off pressor now. Still moaning. Objective Last 24 Hour Vital Signs Date Time Temp Pulse Resp B/P Pulse Ox O2 Delivery O2 Flow Rate FiO2 02/17/17 13:00 73 15 94/43 99 Nasal Cannula 3.0 02/17/17 12:59 97.6 02/17/17 12:21 92 02/17/17 12:00 97.6 76 16 95/43 95 Nasal Cannula 3.0 02/17/17 11:00 105/71 02/17/17 10:45 73 15 108/50 97 Nasal Cannula 3.0 02/17/17 10:30 70 15 99/57 97 Nasal Cannula 3.0 02/17/17 10:15 72 15 109/56 96 Nasal Cannula 3.0 02/17/17 10:00 109/56 02/17/17 10:00 70 16 87/49 96 Nasal Cannula 3.0 02/17/17 09:45 71 15 90/46 97 Nasal Cannula 3.0 02/17/17 09:30 72 16 92/47 97 Nasal Cannula 3.0 02/17/17 09:15 74 15 97/50 97 Nasal Cannula 3.0 02/17/17 09:00 113/54 02/17/17 09:00 71 16 113/54 97 Nasal Cannula 3.0 02/17/17 08:45 65 13 94/51 98 Nasal Cannula 3.0 02/17/17 08:30 69 16 102/48 95 Nasal Cannula 3.0 02/17/17 08:15 69 16 98/48 95 Nasal Cannula 3.0 02/17/17 08:00 98.0 71 15 99/51 93 Nasal Cannula 3.0 02/17/17 08:00 99/51 02/17/17 08:00 73 02/17/17 07:45 71 16 94/54 93 Nasal Cannula 3.0 02/17/17 07:30 69 16 116/56 92 Nasal Cannula 3.0 02/17/17 07:15 68 16 111/55 96 Nasal Cannula 3.0 02/17/17 07:00 63 16 111/55 96 Nasal Cannula 2.0 02/17/17 06:55 Nasal Cannula 3.0 32 02/17/17 06:55 97 Nasal Cannula 2.0 28 02/17/17 06:30 64 16 99/55 95 Nasal Cannula 2.0 02/17/17 06:00 69 15 97/50 95 Nasal Cannula 2.0 02/17/17 05:30 63 14 97/50 96 Nasal Cannula 2.0 02/17/17 05:00 66 16 104/53 97 Nasal Cannula 2.0 02/17/17 04:30 67 16 104/53 97 Nasal Cannula 2.0 02/17/17 04:00 97.9 64 16 110/54 96 Nasal Cannula 2.0 02/17/17 04:00 66 02/17/17 03:30 65 14 106/48 97 Nasal Cannula 2.0 02/17/17 03:00 64 16 111/51 97 Nasal Cannula 2.0 02/17/17 02:30 66 14 103/51 97 Nasal Cannula 2.0 02/17/17 02:00 66 15 100/49 97 Nasal Cannula 2.0 02/17/17 02:00 100/49 02/17/17 01:30 67 16 106/50 94 Nasal Cannula 2.0 02/17/17 01:00 60 14 104/65 98 Nasal Cannula 2.0 02/17/17 00:30 65 14 99/47 96 Nasal Cannula 2.0 02/17/17 00:00 68 02/17/17 00:00 97.9 69 15 102/48 96 Nasal Cannula 2.0 02/16/17 23:30 64 15 116/56 96 Nasal Cannula 2.0 02/16/17 23:00 99/53 02/16/17 23:00 56 14 99/53 97 Nasal Cannula 2.0 02/16/17 22:30 63 14 92/50 97 Nasal Cannula 2.0 02/16/17 22:00 59 12 110/50 97 Nasal Cannula 2.0 02/16/17 22:00 78/45 02/16/17 21:30 67 15 109/42 95 Nasal Cannula 2.0 02/16/17 21:00 60 12 80/39 96 Nasal Cannula 2.0 02/16/17 21:00 80/39 02/16/17 20:00 80/39 02/16/17 20:00 71 02/16/17 20:00 97.5 67 12 126/46 96 Nasal Cannula 2.0 02/16/17 19:07 Nasal Cannula 2.0 28 02/16/17 19:07 96 Nasal Cannula 2.0 28 02/16/17 19:00 71 15 73/40 93 Nasal Cannula 2.0 02/16/17 18:00 73 15 98/43 94 Nasal Cannula 2.0 02/16/17 17:00 79 19 104/51 94 Nasal Cannula 2.0 02/16/17 16:00 97.5 71 21 107/47 95 Nasal Cannula 2.0 02/16/17 16:00 77 02/16/17 15:00 69 17 94/43 96 Nasal Cannula 2.0 Intake and Output 02/16/17 02/17/17 19:00 07:00 Intake Total 1830.000 ml 1938.75 ml Output Total 770 ml 1180 ml Balance 1060.000 ml 758.75 ml Free Water 100 ml IV Total 1220.000 ml 1298.75 ml Tube Feeding 360 ml 390 ml Other 150 ml 250 ml Output Urine Total 770 ml 1180 ml # Bowel Movements 4 Laboratory Tests Test 02/16/17 15:30 02/17/17 04:00 02/17/17 08:34 Urine Color Yellow Urine Appearance Cloudy Urine pH 5 (4.5-8.0) Urine Specific [place] 1.020 (1.005-1.035) Urine Protein 2+ (NEGATIVE) H Urine Glucose (UA) Negative (NEGATIVE) Urine Ketones 1+ (NEGATIVE) H Urine Occult Blood 5+ (NEGATIVE) H Urine Nitrite Negative (NEGATIVE) Urine Bilirubin Negative (NEGATIVE) Urine Urobilinogen 4 MG/DL (0.0-1.0) H Urine Leukocyte Esterase 3+ (NEGATIVE) H Urine RBC Tntc /HPF (0 - 2) H Urine WBC Tntc /HPF (0 - 2) H Urine Squamous Epithelial Cells Few /LPF (NONE/OCC) Urine Bacteria Many /HPF (NONE) H Urine Opiates Screen Negative (NEGATIVE) Urine Barbiturates Screen Negative (NEGATIVE) Phencyclidine (PCP) Screen Negative (NEGATIVE) Urine Amphetamines Screen Negative (NEGATIVE) Urine Benzodiazepines Screen Negative (NEGATIVE) Urine Cocaine Screen Negative (NEGATIVE) Urine Marijuana (THC) Screen Negative (NEGATIVE) White Blood Count 5.6 K/UL (4.8-10.8) Red Blood Count 2.96 M/UL (4.20-5.40) L Hemoglobin 9.6 G/DL (12.0-16.0) L Hematocrit 28.6 % (37.0-47.0) L Mean Corpuscular Volume 97 FL (80-99) Mean Corpuscular Hemoglobin 32.6 PG (27.0-31.0) H Mean Corpuscular Hemoglobin Concent 33.7 G/DL (32.0-36.0) Red Cell Distribution Width 15.2 % (11.6-14.8) H Platelet Count 72 K/UL (150-450) L Mean Platelet Volume 8.8 FL (6.5-10.1) Neutrophils (%) (Auto) % (45.0-75.0) Lymphocytes (%) (Auto) % (20.0-45.0) Monocytes (%) (Auto) % (1.0-10.0) Eosinophils (%) (Auto) % (0.0-3.0) Basophils (%) (Auto) % (0.0-2.0) Differential Total Cells Counted 100 Neutrophils % (Manual) 75 % (45-75) Lymphocytes % (Manual) 17 % (20-45) L Monocytes % (Manual) 3 % (1-10) Eosinophils % (Manual) 5 % (0-3) H Basophils % (Manual) 0 % (0-2) Band Neutrophils 0 % (0-8) Platelet Estimate Decreased L Platelet Morphology Normal Red Blood Cell Morphology Normal Sodium Level 144 mEQ/L (135-145) Potassium Level 4.2 mEQ/L (3.4-4.9) Chloride Level 111 mEQ/L (98-107) H Carbon Dioxide Level 23 mEQ/L (20-30) Anion Gap 10 (5-15) Blood Urea Nitrogen 36 mg/dL (7-23) H Creatinine 1.3 mg/dL (0.5-0.9) H Estimat Glomerular Filtration Rate 42.8 mL/min (>60) Glucose Level 140 mg/dL (74-106) H Calcium Level 7.9 mg/dL (8.6-10.2) L Phosphorus Level 3.8 mg/dL (2.5-4.8) Magnesium Level 2.2 mg/dL (1.7-2.5) Total Bilirubin 1.4 mg/dL (0.0-1.2) H Direct Bilirubin 0.7 mg/dL (0.1-0.3) H Aspartate Amino Transf (AST/SGOT) 39 U/L (5-40) Alanine Aminotransferase (ALT/SGPT) 17 U/L (3-33) Alkaline Phosphatase 115 U/L (35-104) H Ammonia 83 umol/L (11-51) H Troponin I < 0.30 ng/mL (<=0.30) Total Protein 6.4 g/dL (6.6-8.7) L Albumin 1.5 g/dL (3.5-5.2) L Globulin 4.9 g/dL Albumin/Globulin Ratio 0.3 (1.0-2.7) L Thyroid Stimulating Hormone (TSH) 1.740 uIU/mL (0.300-4.500) Free Thyroxine 1.09 ng/dL (0.86-1.85) Arterial Blood pH 7.450 (7.350-7.450) Arterial Blood Partial Pressure CO2 32.0 mmHg (35.0-45.0) L Arterial Blood Partial Pressure O2 67.0 mmHg (75.0-100.0) L Arterial Blood HCO3 21.7 mmol/L (22.0-26.0) L Arterial Blood Oxygen Saturation 93.0 % (92.0-98.0) Arterial Blood Base Excess -1.6 Harley Test Positive Microbiology Date/Time Source Procedure Growth Status 02/16/17 15:30 Indwelling Cath Urine Culture - Preliminary Resulted Objective HEAD AND NECK: No JVD. LUNGS: Clear. CARDIOVASCULAR: Regular S1 and S2 with no gallop or murmur. ABDOMEN: Her NG tube is in. Abdomen is soft. EXTREMITIES: There is 1+ pitting edema. ELIUD LALA February 17, 2017 14:08
--- NOTE | 2017-02-17 15:08 | Infectious Diseases Prog Note ---
Assessment/Plan Problems: (1) Hypotension Assessment & Plan: rule out sepsis, repeated blood culture is pending . continue vancomycin and aztreonam for now , repeated urine culture is pending (2) UTI (urinary tract infection) Assessment & Plan: due to methicillin sensitive staph aureus, continue vancomycin dosed by pharmacy (3) Encephalopathy, multifactorial, hepatic/septic/renal Assessment & Plan: had elevated ammonia level, continue lactulose, and antibiotics for UTI, neurology is following (4) Liver cirrhosis Assessment & Plan: with negative hepatitis panel, continue supportive care, avoid hepatotoxic meds, consult GI (5) Altered mental state Assessment & Plan: with agitation and confusion, multifactorial , continue antibiotics, and lactulose.neurology is following Subjective ROS Limited/Unobtainable: Yes Allergies: Coded Allergies: PENICILLINS (Verified Allergy, Unknown, 02/10/17) Subjective she was more alert today, open eyes spontaneously, mildly agitated , not in distress . afebrile, dosen't follow commands Objective Vital Signs Last 24 Hour Vital Signs Date Time Temp Pulse Resp B/P Pulse Ox O2 Delivery O2 Flow Rate FiO2 02/17/17 14:00 88 20 100/45 96 Nasal Cannula 3.0 02/17/17 13:00 73 15 94/43 99 Nasal Cannula 3.0 02/17/17 12:59 97.6 02/17/17 12:21 92 02/17/17 12:00 97.6 76 16 95/43 95 Nasal Cannula 3.0 02/17/17 11:00 105/71 02/17/17 10:45 73 15 108/50 97 Nasal Cannula 3.0 02/17/17 10:30 70 15 99/57 97 Nasal Cannula 3.0 02/17/17 10:15 72 15 109/56 96 Nasal Cannula 3.0 02/17/17 10:00 109/56 02/17/17 10:00 70 16 87/49 96 Nasal Cannula 3.0 02/17/17 09:45 71 15 90/46 97 Nasal Cannula 3.0 02/17/17 09:30 72 16 92/47 97 Nasal Cannula 3.0 02/17/17 09:15 74 15 97/50 97 Nasal Cannula 3.0 02/17/17 09:00 113/54 02/17/17 09:00 71 16 113/54 97 Nasal Cannula 3.0 02/17/17 08:45 65 13 94/51 98 Nasal Cannula 3.0 02/17/17 08:30 69 16 102/48 95 Nasal Cannula 3.0 02/17/17 08:15 69 16 98/48 95 Nasal Cannula 3.0 02/17/17 08:00 98.0 71 15 99/51 93 Nasal Cannula 3.0 02/17/17 08:00 99/51 02/17/17 08:00 73 02/17/17 07:45 71 16 94/54 93 Nasal Cannula 3.0 02/17/17 07:30 69 16 116/56 92 Nasal Cannula 3.0 02/17/17 07:15 68 16 111/55 96 Nasal Cannula 3.0 02/17/17 07:00 63 16 111/55 96 Nasal Cannula 2.0 02/17/17 06:55 Nasal Cannula 3.0 32 02/17/17 06:55 97 Nasal Cannula 2.0 28 02/17/17 06:30 64 16 99/55 95 Nasal Cannula 2.0 02/17/17 06:00 69 15 97/50 95 Nasal Cannula 2.0 02/17/17 05:30 63 14 97/50 96 Nasal Cannula 2.0 02/17/17 05:00 66 16 104/53 97 Nasal Cannula 2.0 02/17/17 04:30 67 16 104/53 97 Nasal Cannula 2.0 02/17/17 04:00 97.9 64 16 110/54 96 Nasal Cannula 2.0 02/17/17 04:00 66 02/17/17 03:30 65 14 106/48 97 Nasal Cannula 2.0 02/17/17 03:00 64 16 111/51 97 Nasal Cannula 2.0 02/17/17 02:30 66 14 103/51 97 Nasal Cannula 2.0 02/17/17 02:00 66 15 100/49 97 Nasal Cannula 2.0 02/17/17 02:00 100/49 02/17/17 01:30 67 16 106/50 94 Nasal Cannula 2.0 02/17/17 01:00 60 14 104/65 98 Nasal Cannula 2.0 02/17/17 00:30 65 14 99/47 96 Nasal Cannula 2.0 02/17/17 00:00 68 02/17/17 00:00 97.9 69 15 102/48 96 Nasal Cannula 2.0 02/16/17 23:30 64 15 116/56 96 Nasal Cannula 2.0 02/16/17 23:00 99/53 02/16/17 23:00 56 14 99/53 97 Nasal Cannula 2.0 02/16/17 22:30 63 14 92/50 97 Nasal Cannula 2.0 02/16/17 22:00 59 12 110/50 97 Nasal Cannula 2.0 02/16/17 22:00 78/45 02/16/17 21:30 67 15 109/42 95 Nasal Cannula 2.0 02/16/17 21:00 60 12 80/39 96 Nasal Cannula 2.0 02/16/17 21:00 80/39 02/16/17 20:00 80/39 02/16/17 20:00 71 02/16/17 20:00 97.5 67 12 126/46 96 Nasal Cannula 2.0 02/16/17 19:07 Nasal Cannula 2.0 28 02/16/17 19:07 96 Nasal Cannula 2.0 28 02/16/17 19:00 71 15 73/40 93 Nasal Cannula 2.0 02/16/17 18:00 73 15 98/43 94 Nasal Cannula 2.0 02/16/17 17:00 79 19 104/51 94 Nasal Cannula 2.0 02/16/17 16:00 97.5 71 21 107/47 95 Nasal Cannula 2.0 02/16/17 16:00 77 Height (Feet): 5 Height (Inches): 6.00 Weight (Pounds): 130 General Appearance: WD/WN, no acute distress HEENT: normocephalic, atraumatic, anicteric, mucous membranes moist Respiratory/Chest: chest wall non-tender, lungs clear, normal breath sounds, no respiratory distress, no accessory muscle use Cardiovascular: normal peripheral pulses, normal rate, regular rhythm, no gallop/murmur, no JVD Abdomen: normal bowel sounds, soft, non tender, no organomegaly, non distended , no mass Extremities: no cyanosis, no clubbing Skin: no rash, no lesions Microbiology Date/Time Source Procedure Growth Status 02/16/17 15:30 Indwelling Cath Urine Culture - Preliminary Resulted Laboratory Tests Test 02/16/17 15:30 02/17/17 04:00 02/17/17 08:34 Urine Color Yellow Urine Appearance Cloudy Urine pH 5 (4.5-8.0) Urine Specific [place] 1.020 (1.005-1.035) Urine Protein 2+ (NEGATIVE) H Urine Glucose (UA) Negative (NEGATIVE) Urine Ketones 1+ (NEGATIVE) H Urine Occult Blood 5+ (NEGATIVE) H Urine Nitrite Negative (NEGATIVE) Urine Bilirubin Negative (NEGATIVE) Urine Urobilinogen 4 MG/DL (0.0-1.0) H Urine Leukocyte Esterase 3+ (NEGATIVE) H Urine RBC Tntc /HPF (0 - 2) H Urine WBC Tntc /HPF (0 - 2) H Urine Squamous Epithelial Cells Few /LPF (NONE/OCC) Urine Bacteria Many /HPF (NONE) H Urine Opiates Screen Negative (NEGATIVE) Urine Barbiturates Screen Negative (NEGATIVE) Phencyclidine (PCP) Screen Negative (NEGATIVE) Urine Amphetamines Screen Negative (NEGATIVE) Urine Benzodiazepines Screen Negative (NEGATIVE) Urine Cocaine Screen Negative (NEGATIVE) Urine Marijuana (THC) Screen Negative (NEGATIVE) White Blood Count 5.6 K/UL (4.8-10.8) Red Blood Count 2.96 M/UL (4.20-5.40) L Hemoglobin 9.6 G/DL (12.0-16.0) L Hematocrit 28.6 % (37.0-47.0) L Mean Corpuscular Volume 97 FL (80-99) Mean Corpuscular Hemoglobin 32.6 PG (27.0-31.0) H Mean Corpuscular Hemoglobin Concent 33.7 G/DL (32.0-36.0) Red Cell Distribution Width 15.2 % (11.6-14.8) H Platelet Count 72 K/UL (150-450) L Mean Platelet Volume 8.8 FL (6.5-10.1) Neutrophils (%) (Auto) % (45.0-75.0) Lymphocytes (%) (Auto) % (20.0-45.0) Monocytes (%) (Auto) % (1.0-10.0) Eosinophils (%) (Auto) % (0.0-3.0) Basophils (%) (Auto) % (0.0-2.0) Differential Total Cells Counted 100 Neutrophils % (Manual) 75 % (45-75) Lymphocytes % (Manual) 17 % (20-45) L Monocytes % (Manual) 3 % (1-10) Eosinophils % (Manual) 5 % (0-3) H Basophils % (Manual) 0 % (0-2) Band Neutrophils 0 % (0-8) Platelet Estimate Decreased L Platelet Morphology Normal Red Blood Cell Morphology Normal Sodium Level 144 mEQ/L (135-145) Potassium Level 4.2 mEQ/L (3.4-4.9) Chloride Level 111 mEQ/L (98-107) H Carbon Dioxide Level 23 mEQ/L (20-30) Anion Gap 10 (5-15) Blood Urea Nitrogen 36 mg/dL (7-23) H Creatinine 1.3 mg/dL (0.5-0.9) H Estimat Glomerular Filtration Rate 42.8 mL/min (>60) Glucose Level 140 mg/dL (74-106) H Calcium Level 7.9 mg/dL (8.6-10.2) L Phosphorus Level 3.8 mg/dL (2.5-4.8) Magnesium Level 2.2 mg/dL (1.7-2.5) Total Bilirubin 1.4 mg/dL (0.0-1.2) H Direct Bilirubin 0.7 mg/dL (0.1-0.3) H Aspartate Amino Transf (AST/SGOT) 39 U/L (5-40) Alanine Aminotransferase (ALT/SGPT) 17 U/L (3-33) Alkaline Phosphatase 115 U/L (35-104) H Ammonia 83 umol/L (11-51) H Troponin I < 0.30 ng/mL (<=0.30) Total Protein 6.4 g/dL (6.6-8.7) L Albumin 1.5 g/dL (3.5-5.2) L Globulin 4.9 g/dL Albumin/Globulin Ratio 0.3 (1.0-2.7) L Thyroid Stimulating Hormone (TSH) 1.740 uIU/mL (0.300-4.500) Free Thyroxine 1.09 ng/dL (0.86-1.85) Arterial Blood pH 7.450 (7.350-7.450) Arterial Blood Partial Pressure CO2 32.0 mmHg (35.0-45.0) L Arterial Blood Partial Pressure O2 67.0 mmHg (75.0-100.0) L Arterial Blood HCO3 21.7 mmol/L (22.0-26.0) L Arterial Blood Oxygen Saturation 93.0 % (92.0-98.0) Arterial Blood Base Excess -1.6 Harley Test Positive Current Medications Medications (Trade) Dose Ordered Sig/Gill Route PRN Reason Start Time Stop Time Status Last Admin Dose Admin Al Hydroxide/Mg Hydroxide (Mylanta II) 30 ml Q6H PRN NG dyspepsia 02/15/17 21:00 03/17/17 20:59 Aripiprazole (Abilify) 10 mg DAILY NG 02/16/17 09:00 03/18/17 08:59 02/17/17 08:30 Aztreonam/Dextrose (Azactam/D5W) 55 ml @ 110 mls/hr Q8HR IVPB 02/16/17 22:30 02/23/17 22:29 02/17/17 13:16 Dextrose (Dextrose 50%) STAT PRN IV Hypoglycemia 02/15/17 21:00 03/17/17 20:59 Haloperidol Lactate (Haldol) 5 mg Q4H PRN IM Agitation 02/15/17 21:00 03/17/17 20:59 02/16/17 16:59 Ibuprofen (Children's Advil) 600 mg Q8H PRN GT MILD-MODERATE PAIN 02/15/17 21:00 03/17/17 20:59 Lactulose (Cephulac) 30 gm EVERY 8 HOURS NG 02/15/17 22:00 03/17/17 21:59 02/17/17 13:16 Lansoprazole (Prevacid) 30 mg ACBREAKFAST NG 02/16/17 06:30 03/18/17 06:29 02/17/17 05:55 Morphine Sulfate (Morphine Sulfate) 2 mg Q4H PRN IVP SEVERE PAIN 02/15/17 21:30 02/22/17 21:29 02/17/17 12:29 Norepinephrine Bitartrate 4 mg/ Dextrose 250 ml @ 0 mls/hr Q24H IV 02/15/17 22:00 03/17/17 21:59 02/17/17 02:00 Ondansetron HCl (Zofran) 4 mg Q6H PRN IVP Nausea & Vomiting 02/15/17 21:00 03/17/17 20:59 Polyethylene Glycol (Miralax) 17 gm HSPRN PRN NG Constipation 02/15/17 21:00 03/17/17 20:59 Quetiapine Fumarate (SEROquel) 100 mg QHS NG 02/15/17 21:00 03/17/17 20:59 02/16/17 21:10 Rifaximin (Xifaxan) 550 mg EVERY 12 HOURS NG 02/15/17 21:00 02/22/17 20:59 02/17/17 08:31 Sodium Chloride 1,000 ml @ 100 mls/hr Q10H IV 02/15/17 22:15 03/17/17 22:14 02/17/17 13:17 Valproic Acid (Depakene) 500 mg Q12HR GT 02/15/17 21:00 03/17/17 20:59 02/17/17 08:30 Vancomycin HCl 750 mg/Dextrose 275 ml @ 183.708 mls/hr Q24H IVPB 02/16/17 08:00 02/21/17 07:59 02/17/17 08:30 Vancomycin HCl 1 ea 1 ea DAILY PRN MISC .Per Rx Protocol 02/16/17 09:00 03/18/17 08:59 Pura Klein M.D. February 17, 2017 15:08
--- NOTE | 2017-02-17 16:11 | General Progress Note ---
Assessment/Plan Problem List: (1) Liver cirrhosis ICD Codes: K74.60 - Unspecified cirrhosis of liver SNOMED: 86288350 Qualifiers: Qualified Codes: K74.60 - Unspecified cirrhosis of liver (2) Encephalopathy ICD Codes: G93.40 - Encephalopathy, unspecified SNOMED: 78339570, 469552338 (3) UTI (urinary tract infection) ICD Codes: N39.0 - Urinary tract infection, site not specified SNOMED: 81474467 Qualifiers: Qualified Codes: N30.01 - Acute cystitis with hematuria (4) Encephalopathy, multifactorial, hepatic/septic/renal (5) Altered mental state ICD Codes: R41.82 - Altered mental status, unspecified SNOMED: 018337354, 018765863 Qualifiers: Qualified Codes: R41.82 - Altered mental status, unspecified (6) Severe malnutrition ICD Codes: E43 - Unspecified severe protein-calorie malnutrition SNOMED: 42317550 (7) Psychiatric disorder ICD Codes: F99 - Mental disorder, not otherwise specified SNOMED: 79193521, 129000168 Status: stable, progressing, tolerating diet Assessment/Plan ot pt diet ivf psyc neuro gi tx cbc bmp am promise ltach transfer Subjective Constitutional: Reports: weakness Allergies: Coded Allergies: PENICILLINS (Verified Allergy, Unknown, 02/10/17) All Systems: reviewed and negative except above Subjective 02nc ng sleepy in icu Objective Last 24 Hour Vital Signs Date Time Temp Pulse Resp B/P Pulse Ox O2 Delivery O2 Flow Rate FiO2 02/17/17 15:00 75 14 105/58 98 Nasal Cannula 3.0 02/17/17 14:00 88 20 100/45 96 Nasal Cannula 3.0 02/17/17 13:00 73 15 94/43 99 Nasal Cannula 3.0 02/17/17 12:59 97.6 02/17/17 12:21 92 02/17/17 12:00 97.6 76 16 95/43 95 Nasal Cannula 3.0 02/17/17 11:00 105/71 02/17/17 10:45 73 15 108/50 97 Nasal Cannula 3.0 02/17/17 10:30 70 15 99/57 97 Nasal Cannula 3.0 02/17/17 10:15 72 15 109/56 96 Nasal Cannula 3.0 02/17/17 10:00 109/56 02/17/17 10:00 70 16 87/49 96 Nasal Cannula 3.0 02/17/17 09:45 71 15 90/46 97 Nasal Cannula 3.0 02/17/17 09:30 72 16 92/47 97 Nasal Cannula 3.0 02/17/17 09:15 74 15 97/50 97 Nasal Cannula 3.0 02/17/17 09:00 113/54 02/17/17 09:00 71 16 113/54 97 Nasal Cannula 3.0 02/17/17 08:45 65 13 94/51 98 Nasal Cannula 3.0 02/17/17 08:30 69 16 102/48 95 Nasal Cannula 3.0 02/17/17 08:15 69 16 98/48 95 Nasal Cannula 3.0 02/17/17 08:00 98.0 71 15 99/51 93 Nasal Cannula 3.0 02/17/17 08:00 99/51 02/17/17 08:00 73 02/17/17 07:45 71 16 94/54 93 Nasal Cannula 3.0 02/17/17 07:30 69 16 116/56 92 Nasal Cannula 3.0 02/17/17 07:15 68 16 111/55 96 Nasal Cannula 3.0 02/17/17 07:00 63 16 111/55 96 Nasal Cannula 2.0 02/17/17 06:55 Nasal Cannula 3.0 32 02/17/17 06:55 97 Nasal Cannula 2.0 28 02/17/17 06:30 64 16 99/55 95 Nasal Cannula 2.0 02/17/17 06:00 69 15 97/50 95 Nasal Cannula 2.0 02/17/17 05:30 63 14 97/50 96 Nasal Cannula 2.0 02/17/17 05:00 66 16 104/53 97 Nasal Cannula 2.0 02/17/17 04:30 67 16 104/53 97 Nasal Cannula 2.0 02/17/17 04:00 97.9 64 16 110/54 96 Nasal Cannula 2.0 02/17/17 04:00 66 02/17/17 03:30 65 14 106/48 97 Nasal Cannula 2.0 02/17/17 03:00 64 16 111/51 97 Nasal Cannula 2.0 02/17/17 02:30 66 14 103/51 97 Nasal Cannula 2.0 02/17/17 02:00 66 15 100/49 97 Nasal Cannula 2.0 02/17/17 02:00 100/49 02/17/17 01:30 67 16 106/50 94 Nasal Cannula 2.0 02/17/17 01:00 60 14 104/65 98 Nasal Cannula 2.0 02/17/17 00:30 65 14 99/47 96 Nasal Cannula 2.0 02/17/17 00:00 68 02/17/17 00:00 97.9 69 15 102/48 96 Nasal Cannula 2.0 02/16/17 23:30 64 15 116/56 96 Nasal Cannula 2.0 02/16/17 23:00 99/53 02/16/17 23:00 56 14 99/53 97 Nasal Cannula 2.0 02/16/17 22:30 63 14 92/50 97 Nasal Cannula 2.0 02/16/17 22:00 59 12 110/50 97 Nasal Cannula 2.0 02/16/17 22:00 78/45 02/16/17 21:30 67 15 109/42 95 Nasal Cannula 2.0 02/16/17 21:00 60 12 80/39 96 Nasal Cannula 2.0 02/16/17 21:00 80/39 02/16/17 20:00 80/39 02/16/17 20:00 71 02/16/17 20:00 97.5 67 12 126/46 96 Nasal Cannula 2.0 02/16/17 19:07 Nasal Cannula 2.0 28 02/16/17 19:07 96 Nasal Cannula 2.0 28 02/16/17 19:00 71 15 73/40 93 Nasal Cannula 2.0 02/16/17 18:00 73 15 98/43 94 Nasal Cannula 2.0 02/16/17 17:00 79 19 104/51 94 Nasal Cannula 2.0 Intake and Output 02/16/17 02/17/17 19:00 07:00 Intake Total 1830.000 ml 1938.75 ml Output Total 770 ml 1180 ml Balance 1060.000 ml 758.75 ml Free Water 100 ml IV Total 1220.000 ml 1298.75 ml Tube Feeding 360 ml 390 ml Other 150 ml 250 ml Output Urine Total 770 ml 1180 ml # Bowel Movements 4 Laboratory Tests 02/17/17 04:00: White Blood Count 5.6, Red Blood Count 2.96L, Hemoglobin 9.6L, Hematocrit 28.6L , Mean Corpuscular Volume 97, Mean Corpuscular Hemoglobin 32.6H, Mean Corpuscular Hemoglobin Concent 33.7, Red Cell Distribution Width 15.2H, Platelet Count 72L, Mean Platelet Volume 8.8, Neutrophils (%) (Auto) , Lymphocytes (%) (Auto) , Monocytes (%) (Auto) , Eosinophils (%) (Auto) , Basophils (%) (Auto) , Differential Total Cells Counted 100, Neutrophils % ( Manual) 75, Lymphocytes % (Manual) 17L, Monocytes % (Manual) 3, Eosinophils % ( Manual) 5H, Basophils % (Manual) 0, Band Neutrophils 0, Platelet Estimate DecreasedL, Platelet Morphology Normal, Red Blood Cell Morphology Normal, Sodium Level 144, Potassium Level 4.2, Chloride Level 111H, Carbon Dioxide Level 23, Anion Gap 10, Blood Urea Nitrogen 36H, Creatinine 1.3H, Estimat Glomerular Filtration Rate 42.8, Glucose Level 140H, Calcium Level 7.9L, Phosphorus Level 3.8, Magnesium Level 2.2, Total Bilirubin 1.4H, Direct Bilirubin 0.7H, Aspartate Amino Transf (AST/SGOT) 39, Alanine Aminotransferase ( ALT/SGPT) 17, Alkaline Phosphatase 115H, Ammonia 83H, Troponin I < 0.30, Total Protein 6.4L, Albumin 1.5L, Globulin 4.9, Albumin/Globulin Ratio 0.3L, Thyroid Stimulating Hormone (TSH) 1.740, Free Thyroxine 1.09 02/17/17 08:34: Arterial Blood pH 7.450, Arterial Blood Partial Pressure CO2 32.0L, Arterial Blood Partial Pressure O2 67.0L, Arterial Blood HCO3 21.7L, Arterial Blood Oxygen Saturation 93.0, Arterial Blood Base Excess -1.6, Harley Test Positive Height (Feet): 5 Height (Inches): 6.00 Weight (Pounds): 130 General Appearance: lethargic, confused EENT: normal ENT inspection Neck: normal alignment Cardiovascular: normal peripheral pulses, normal rate, regular rhythm Respiratory/Chest: chest wall non-tender, lungs clear, normal breath sounds Abdomen: normal bowel sounds, non tender, soft Extremities: normal inspection Edema: no edema noted Arm (L), no edema noted Arm (R), no edema noted Leg (L), no edema noted Leg (R), no edema noted Pedal (L), no edema noted Pedal (R), no edema noted Generalized Neurologic: responsive, motor weakness Skin: normal pigmentation, warm/dry TERE GILES February 17, 2017 16:11
--- NOTE | 2017-02-17 21:45 | Nephrology Progress Note ---
Assessment/Plan Problem List: (1) SHERIE (acute kidney injury) (2) Hypotension (3) Hypernatremia Assessment: improving. (4) Shock (5) Psychiatric disorder (6) Encephalopathy, multifactorial, hepatic/septic/renal (7) UTI (urinary tract infection) Plan cont IVF for now. NGT. monitor labs. Subjective Subjective in ICU. on NGT. Objective Objective Last 24 Hour Vital Signs Date Time Temp Pulse Resp B/P Pulse Ox O2 Delivery O2 Flow Rate FiO2 02/17/17 21:00 89 17 112/62 97 Nasal Cannula 3.0 02/17/17 20:00 98.0 76 14 103/54 99 Nasal Cannula 3.0 02/17/17 19:20 Nasal Cannula 3.0 32 02/17/17 19:20 96 Nasal Cannula 3.0 32 02/17/17 19:00 79 14 93/52 98 Nasal Cannula 3.0 02/17/17 18:01 97.8 02/17/17 18:00 77 16 113/65 97 Nasal Cannula 3.0 02/17/17 17:00 74 17 114/49 98 Nasal Cannula 3.0 02/17/17 16:00 97.8 87 20 104/50 94 Nasal Cannula 3.0 02/17/17 16:00 83 02/17/17 15:00 75 14 105/58 98 Nasal Cannula 3.0 02/17/17 14:00 88 20 100/45 96 Nasal Cannula 3.0 02/17/17 13:00 73 15 94/43 99 Nasal Cannula 3.0 02/17/17 12:21 92 02/17/17 12:00 97.6 76 16 95/43 95 Nasal Cannula 3.0 02/17/17 11:00 105/71 02/17/17 10:45 73 15 108/50 97 Nasal Cannula 3.0 02/17/17 10:30 70 15 99/57 97 Nasal Cannula 3.0 02/17/17 10:15 72 15 109/56 96 Nasal Cannula 3.0 02/17/17 10:00 109/56 02/17/17 10:00 70 16 87/49 96 Nasal Cannula 3.0 02/17/17 09:45 71 15 90/46 97 Nasal Cannula 3.0 02/17/17 09:30 72 16 92/47 97 Nasal Cannula 3.0 02/17/17 09:15 74 15 97/50 97 Nasal Cannula 3.0 02/17/17 09:00 113/54 02/17/17 09:00 71 16 113/54 97 Nasal Cannula 3.0 02/17/17 08:45 65 13 94/51 98 Nasal Cannula 3.0 02/17/17 08:30 69 16 102/48 95 Nasal Cannula 3.0 02/17/17 08:15 69 16 98/48 95 Nasal Cannula 3.0 02/17/17 08:00 98.0 71 15 99/51 93 Nasal Cannula 3.0 02/17/17 08:00 99/51 02/17/17 08:00 73 02/17/17 07:45 71 16 94/54 93 Nasal Cannula 3.0 02/17/17 07:30 69 16 116/56 92 Nasal Cannula 3.0 02/17/17 07:15 68 16 111/55 96 Nasal Cannula 3.0 02/17/17 07:00 63 16 111/55 96 Nasal Cannula 2.0 02/17/17 06:55 Nasal Cannula 3.0 32 02/17/17 06:55 97 Nasal Cannula 2.0 28 02/17/17 06:30 64 16 99/55 95 Nasal Cannula 2.0 02/17/17 06:00 69 15 97/50 95 Nasal Cannula 2.0 02/17/17 05:30 63 14 97/50 96 Nasal Cannula 2.0 02/17/17 05:00 66 16 104/53 97 Nasal Cannula 2.0 02/17/17 04:30 67 16 104/53 97 Nasal Cannula 2.0 02/17/17 04:00 97.9 64 16 110/54 96 Nasal Cannula 2.0 02/17/17 04:00 66 02/17/17 03:30 65 14 106/48 97 Nasal Cannula 2.0 02/17/17 03:00 64 16 111/51 97 Nasal Cannula 2.0 02/17/17 02:30 66 14 103/51 97 Nasal Cannula 2.0 02/17/17 02:00 66 15 100/49 97 Nasal Cannula 2.0 02/17/17 02:00 100/49 02/17/17 01:30 67 16 106/50 94 Nasal Cannula 2.0 02/17/17 01:00 60 14 104/65 98 Nasal Cannula 2.0 02/17/17 00:30 65 14 99/47 96 Nasal Cannula 2.0 02/17/17 00:00 68 02/17/17 00:00 97.9 69 15 102/48 96 Nasal Cannula 2.0 02/16/17 23:30 64 15 116/56 96 Nasal Cannula 2.0 02/16/17 23:00 99/53 02/16/17 23:00 56 14 99/53 97 Nasal Cannula 2.0 02/16/17 22:30 63 14 92/50 97 Nasal Cannula 2.0 02/16/17 22:00 59 12 110/50 97 Nasal Cannula 2.0 02/16/17 22:00 78/45 Intake and Output 02/16/17 02/17/17 19:00 07:00 Intake Total 1830.000 ml 1938.75 ml Output Total 770 ml 1180 ml Balance 1060.000 ml 758.75 ml Free Water 100 ml IV Total 1220.000 ml 1298.75 ml Tube Feeding 360 ml 390 ml Other 150 ml 250 ml Output Urine Total 770 ml 1180 ml # Bowel Movements 4 Laboratory Tests 02/17/17 04:00: White Blood Count 5.6, Red Blood Count 2.96L, Hemoglobin 9.6L, Hematocrit 28.6L , Mean Corpuscular Volume 97, Mean Corpuscular Hemoglobin 32.6H, Mean Corpuscular Hemoglobin Concent 33.7, Red Cell Distribution Width 15.2H, Platelet Count 72L, Mean Platelet Volume 8.8, Neutrophils (%) (Auto) , Lymphocytes (%) (Auto) , Monocytes (%) (Auto) , Eosinophils (%) (Auto) , Basophils (%) (Auto) , Differential Total Cells Counted 100, Neutrophils % ( Manual) 75, Lymphocytes % (Manual) 17L, Monocytes % (Manual) 3, Eosinophils % ( Manual) 5H, Basophils % (Manual) 0, Band Neutrophils 0, Platelet Estimate DecreasedL, Platelet Morphology Normal, Red Blood Cell Morphology Normal, Sodium Level 144, Potassium Level 4.2, Chloride Level 111H, Carbon Dioxide Level 23, Anion Gap 10, Blood Urea Nitrogen 36H, Creatinine 1.3H, Estimat Glomerular Filtration Rate 42.8, Glucose Level 140H, Calcium Level 7.9L, Phosphorus Level 3.8, Magnesium Level 2.2, Total Bilirubin 1.4H, Direct Bilirubin 0.7H, Aspartate Amino Transf (AST/SGOT) 39, Alanine Aminotransferase ( ALT/SGPT) 17, Alkaline Phosphatase 115H, Ammonia 83H, Troponin I < 0.30, Total Protein 6.4L, Albumin 1.5L, Globulin 4.9, Albumin/Globulin Ratio 0.3L, Thyroid Stimulating Hormone (TSH) 1.740, Free Thyroxine 1.09 02/17/17 08:34: Arterial Blood pH 7.450, Arterial Blood Partial Pressure CO2 32.0L, Arterial Blood Partial Pressure O2 67.0L, Arterial Blood HCO3 21.7L, Arterial Blood Oxygen Saturation 93.0, Arterial Blood Base Excess -1.6, Harley Test Positive Height (Feet): 5 Height (Inches): 6.00 Weight (Pounds): 130 General Appearance: no apparent distress Cardiovascular: normal rate, regular rhythm Respiratory/Chest: lungs clear Abdomen: non tender, soft PATRICK ENRIQUEZ February 17, 2017 21:45
[2017-02-18] VITALS (18 sets, daily range): BP systolic 102–158; BP diastolic 38–65
[2017-02-18 05:27] LABS: MEAN CORPUSCULAR VOLUME 97 FL (80-99); MEAN PLATELET VOLUME 8.4 FL (6.5-10.1); PLATELET COUNT 40 K/UL (150-450); RED BLOOD COUNT 2.59 M/UL (4.20-5.40); RED CELL DISTRIBUTION WIDTH 15.1 % (11.6-14.8); WHITE BLOOD COUNT 3.4 K/UL (4.8-10.8)
[2017-02-18 05:45] LABS: ALBUMIN/GLOBULIN RATIO 0.3 (1.0-2.7); CALCIUM 8.2 mg/dL (8.6-10.2); CREATININE 1.3 mg/dL (0.5-0.9); GLOMERULAR FILTRATION RATE 42.8 mL/min (>60); MAGNESIUM 2.3 mg/dL (1.7-2.5); PHOSPHORUS 3.7 mg/dL (2.5-4.8); POTASSIUM 4.2 mEQ/L (3.4-4.9); TOTAL PROTEIN 6.5 g/dL (6.6-8.7)
[2017-02-18] MEDS: Lactulose 20gm/30ml UDC NG SCH ×3 (05:49→21:53)
[2017-02-18] MEDS: Aztreonam Inj 1 GM in D5W 55 ML IVPB SCH ×3 (05:49→21:55)
[2017-02-18 07:38] LABS: EOSINOPHILS % (MANUAL) 2 % (0-3); LYMPHOCYTES % (MANUAL) 21 % (20-45); NEUTROPHILS % (MANUAL) 67 % (45-75); TOTAL CELLS COUNTED 100
[2017-02-18 07:39] LABS: ANISOCYTOSIS 1+; BAND NEUTROPHILS % (MANUAL) 0 % (0-8); BASOPHILS % (MANUAL) 0 % (0-2); HYPOCHROMASIA 1+; PLATELET ESTIMATE DECREASED; PLATELET MORPHOLOGY NORMAL
[2017-02-18] MEDS: Vancomycin 750mg/D5W 275ml IVPB SCH ×2 (09:16)
[2017-02-18] MEDS: Rifaximin 550mg tab NG SCH ×2 (09:16→21:29)
[2017-02-18] MEDS: Valproic Acid 250mg/5ml Liquid GT SCH ×2 (09:16→21:29)
[2017-02-18] MEDS: ARIPiprazole 10mg tab NG SCH (09:16)
--- NOTE | 2017-02-18 10:51 | GI Progress Note ---
Assessment/Plan Problems: (1) Severe malnutrition ICD Codes: E43 - Unspecified severe protein-calorie malnutrition SNOMED: 35747986 (2) Altered mental state ICD Codes: R41.82 - Altered mental status, unspecified SNOMED: 992217425, 410916000 Qualifiers: Qualified Codes: R41.82 - Altered mental status, unspecified (3) Encephalopathy, multifactorial, hepatic/septic/renal (4) Encephalopathy ICD Codes: G93.40 - Encephalopathy, unspecified SNOMED: 71525944, 069757319 (5) Liver cirrhosis ICD Codes: K74.60 - Unspecified cirrhosis of liver SNOMED: 07596130 Qualifiers: Qualified Codes: K74.60 - Unspecified cirrhosis of liver Status: not improved, unchanged Status Narrative Discussed with Dr. Gil. Assessment/Plan hep panel negative hypernatremia >> resolved, reduce lactulose to help Na elevated ammonia >> cont lactulose + Xifaxan OB stool negative utox negative NGTFs per dietary ppi monitor LFTs fu labs Subjective Subjective limited, calm Objective Last 24 Hour Vital Signs Date Time Temp Pulse Resp B/P Pulse Ox O2 Delivery O2 Flow Rate FiO2 02/18/17 10:00 94 18 127/50 97 Nasal Cannula 3.0 02/18/17 09:00 83 18 135/55 98 Nasal Cannula 3.0 02/18/17 08:00 85 02/18/17 08:00 98.2 84 16 158/52 98 Nasal Cannula 3.0 02/18/17 07:00 77 16 135/47 98 Nasal Cannula 3.0 02/18/17 06:00 77 14 118/48 97 Nasal Cannula 3.0 02/18/17 05:00 84 17 135/64 96 Nasal Cannula 3.0 02/18/17 04:00 98.1 79 16 105/38 98 Nasal Cannula 3.0 02/18/17 04:00 79 02/18/17 03:00 79 17 102/47 100 Nasal Cannula 3.0 02/18/17 02:00 80 15 108/55 100 Nasal Cannula 3.0 02/18/17 01:00 81 12 108/45 98 Nasal Cannula 3.0 02/18/17 00:00 85 02/18/17 00:00 98.1 85 13 122/53 96 Nasal Cannula 3.0 02/17/17 23:00 90 16 93/51 96 Nasal Cannula 3.0 02/17/17 22:00 89 16 99/52 98 Nasal Cannula 3.0 02/17/17 22:00 112/62 02/17/17 21:00 89 17 112/62 97 Nasal Cannula 3.0 02/17/17 20:00 98.0 76 14 103/54 99 Nasal Cannula 3.0 02/17/17 20:00 76 02/17/17 19:20 Nasal Cannula 3.0 32 02/17/17 19:20 96 Nasal Cannula 3.0 32 02/17/17 19:00 79 14 93/52 98 Nasal Cannula 3.0 02/17/17 18:01 97.8 02/17/17 18:00 77 16 113/65 97 Nasal Cannula 3.0 02/17/17 17:00 74 17 114/49 98 Nasal Cannula 3.0 02/17/17 16:00 97.8 87 20 104/50 94 Nasal Cannula 3.0 02/17/17 16:00 83 02/17/17 15:00 75 14 105/58 98 Nasal Cannula 3.0 02/17/17 14:00 88 20 100/45 96 Nasal Cannula 3.0 02/17/17 13:00 73 15 94/43 99 Nasal Cannula 3.0 02/17/17 12:21 92 02/17/17 12:00 97.6 76 16 95/43 95 Nasal Cannula 3.0 02/17/17 11:00 105/71 Intake and Output 02/17/17 02/18/17 19:00 07:00 Intake Total 1831.25 ml 1770 ml Output Total 1300 ml 1075 ml Balance 531.25 ml 695 ml Free Water 50 ml IV Total 1271.25 ml 1160 ml Tube Feeding 360 ml 360 ml Other 150 ml 250 ml Output Urine Total 1300 ml 1075 ml Laboratory Tests Test 02/18/17 04:00 White Blood Count 3.4 K/UL (4.8-10.8) L Red Blood Count 2.59 M/UL (4.20-5.40) L Hemoglobin 8.8 G/DL (12.0-16.0) L Hematocrit 25.2 % (37.0-47.0) L Mean Corpuscular Volume 97 FL (80-99) Mean Corpuscular Hemoglobin 34.0 PG (27.0-31.0) H Mean Corpuscular Hemoglobin Concent 35.0 G/DL (32.0-36.0) Red Cell Distribution Width 15.1 % (11.6-14.8) H Platelet Count 40 K/UL (150-450) L Mean Platelet Volume 8.4 FL (6.5-10.1) Neutrophils (%) (Auto) % (45.0-75.0) Lymphocytes (%) (Auto) % (20.0-45.0) Monocytes (%) (Auto) % (1.0-10.0) Eosinophils (%) (Auto) % (0.0-3.0) Basophils (%) (Auto) % (0.0-2.0) Differential Total Cells Counted 100 Neutrophils % (Manual) 67 % (45-75) Lymphocytes % (Manual) 21 % (20-45) Monocytes % (Manual) 10 % (1-10) Eosinophils % (Manual) 2 % (0-3) Basophils % (Manual) 0 % (0-2) Band Neutrophils 0 % (0-8) Platelet Estimate Decreased L Platelet Morphology Normal Hypochromasia 1+ Anisocytosis 1+ Sodium Level 146 mEQ/L (135-145) H Potassium Level 4.2 mEQ/L (3.4-4.9) Chloride Level 111 mEQ/L (98-107) H Carbon Dioxide Level 25 mEQ/L (20-30) Anion Gap 10 (5-15) Blood Urea Nitrogen 31 mg/dL (7-23) H Creatinine 1.3 mg/dL (0.5-0.9) H Estimat Glomerular Filtration Rate 42.8 mL/min (>60) Glucose Level 106 mg/dL (74-106) Calcium Level 8.2 mg/dL (8.6-10.2) L Phosphorus Level 3.7 mg/dL (2.5-4.8) Magnesium Level 2.3 mg/dL (1.7-2.5) Total Bilirubin 1.0 mg/dL (0.0-1.2) Aspartate Amino Transf (AST/SGOT) 35 U/L (5-40) Alanine Aminotransferase (ALT/SGPT) 16 U/L (3-33) Alkaline Phosphatase 124 U/L (35-104) H Total Protein 6.5 g/dL (6.6-8.7) L Albumin 1.5 g/dL (3.5-5.2) L Globulin 5.0 g/dL Albumin/Globulin Ratio 0.3 (1.0-2.7) L Height (Feet): 5 Height (Inches): 6.00 Weight (Pounds): 130 General Appearance: alert, agitated - periods of agitation Cardiovascular: normal rate Respiratory/Chest: normal breath sounds Abdominal Exam: other - NGT Diamond Smith N.P. February 18, 2017 10:51
--- NOTE | 2017-02-18 11:02 | Pulmonolgy Critical Care Note ---
Critical Care - Asmt/Plan Problems: (1) Shock (2) Liver cirrhosis (3) Encephalopathy (4) UTI (urinary tract infection) (5) Severe malnutrition (6) Psychiatric disorder (7) SHERIE (acute kidney injury) Respiratory: monitor respiratory rate, adjust FIO2, CXR Cardiac: continue to monitor HR/BP Renal: F/U I&O, decrease IV fluid, check electrolytes Gastrointestinal: continue feedings/current rate Endocrine: monitor blood sugar, check TSH Hematologic: transfuse if hgb<8.5 Neurologic: PRN Ativan, PRN Morphine, keep patient comfortable Affect: PRN ativan Prophylaxis: Protonix, Heparin Notes Reviewed: sliver lap tender, renal Discussed with: nurses, nurse case managermanpower development manager - Objective Last 24 Hour Vital Signs Date Time Temp Pulse Resp B/P Pulse Ox O2 Delivery O2 Flow Rate FiO2 02/18/17 10:00 94 18 127/50 97 Nasal Cannula 3.0 02/18/17 09:00 83 18 135/55 98 Nasal Cannula 3.0 02/18/17 08:00 85 02/18/17 08:00 98.2 84 16 158/52 98 Nasal Cannula 3.0 02/18/17 07:00 77 16 135/47 98 Nasal Cannula 3.0 02/18/17 06:00 77 14 118/48 97 Nasal Cannula 3.0 02/18/17 05:00 84 17 135/64 96 Nasal Cannula 3.0 02/18/17 04:00 98.1 79 16 105/38 98 Nasal Cannula 3.0 02/18/17 04:00 79 02/18/17 03:00 79 17 102/47 100 Nasal Cannula 3.0 02/18/17 02:00 80 15 108/55 100 Nasal Cannula 3.0 02/18/17 01:00 81 12 108/45 98 Nasal Cannula 3.0 02/18/17 00:00 85 02/18/17 00:00 98.1 85 13 122/53 96 Nasal Cannula 3.0 02/17/17 23:00 90 16 93/51 96 Nasal Cannula 3.0 02/17/17 22:00 89 16 99/52 98 Nasal Cannula 3.0 02/17/17 22:00 112/62 02/17/17 21:00 89 17 112/62 97 Nasal Cannula 3.0 02/17/17 20:00 98.0 76 14 103/54 99 Nasal Cannula 3.0 02/17/17 20:00 76 02/17/17 19:20 Nasal Cannula 3.0 32 02/17/17 19:20 96 Nasal Cannula 3.0 32 02/17/17 19:00 79 14 93/52 98 Nasal Cannula 3.0 02/17/17 18:01 97.8 02/17/17 18:00 77 16 113/65 97 Nasal Cannula 3.0 02/17/17 17:00 74 17 114/49 98 Nasal Cannula 3.0 02/17/17 16:00 97.8 87 20 104/50 94 Nasal Cannula 3.0 02/17/17 16:00 83 02/17/17 15:00 75 14 105/58 98 Nasal Cannula 3.0 02/17/17 14:00 88 20 100/45 96 Nasal Cannula 3.0 02/17/17 13:00 73 15 94/43 99 Nasal Cannula 3.0 02/17/17 12:21 92 02/17/17 12:00 97.6 76 16 95/43 95 Nasal Cannula 3.0 Status: obtunded Condition: critical HEENT: atraumatic Neck: full ROM Lungs: rales Heart: HR/BP stable, edema Abdomen: soft, non-tender, feeding tube Extremities: edema Decubiti: location Micro: Microbiology Date/Time Source Procedure Growth Status 02/16/17 16:00 Blood Blood Culture - Preliminary NO GROWTH AFTER 24 HOURS Resulted 02/16/17 15:45 Blood Blood Culture - Preliminary NO GROWTH AFTER 24 HOURS Resulted 02/16/17 15:30 Indwelling Cath Urine Culture - Preliminary Yeast Species Resulted Accucheck: 208 Critical Care - Subjective ROS Limited/Unobtainable: Yes ICU Day: 4 Condition: critical, improving FI02: 32 Tube Feeding Amount: 30 I&O: Intake and Output 02/17/17 02/18/17 19:00 07:00 Intake Total 1831.25 ml 1770 ml Output Total 1300 ml 1075 ml Balance 531.25 ml 695 ml Free Water 50 ml IV Total 1271.25 ml 1160 ml Tube Feeding 360 ml 360 ml Other 150 ml 250 ml Output Urine Total 1300 ml 1075 ml CXR: no change Labs: Laboratory Tests Test 02/18/17 04:00 White Blood Count 3.4 K/UL (4.8-10.8) L Red Blood Count 2.59 M/UL (4.20-5.40) L Hemoglobin 8.8 G/DL (12.0-16.0) L Hematocrit 25.2 % (37.0-47.0) L Mean Corpuscular Volume 97 FL (80-99) Mean Corpuscular Hemoglobin 34.0 PG (27.0-31.0) H Mean Corpuscular Hemoglobin Concent 35.0 G/DL (32.0-36.0) Red Cell Distribution Width 15.1 % (11.6-14.8) H Platelet Count 40 K/UL (150-450) L Mean Platelet Volume 8.4 FL (6.5-10.1) Neutrophils (%) (Auto) % (45.0-75.0) Lymphocytes (%) (Auto) % (20.0-45.0) Monocytes (%) (Auto) % (1.0-10.0) Eosinophils (%) (Auto) % (0.0-3.0) Basophils (%) (Auto) % (0.0-2.0) Differential Total Cells Counted 100 Neutrophils % (Manual) 67 % (45-75) Lymphocytes % (Manual) 21 % (20-45) Monocytes % (Manual) 10 % (1-10) Eosinophils % (Manual) 2 % (0-3) Basophils % (Manual) 0 % (0-2) Band Neutrophils 0 % (0-8) Platelet Estimate Decreased L Platelet Morphology Normal Hypochromasia 1+ Anisocytosis 1+ Sodium Level 146 mEQ/L (135-145) H Potassium Level 4.2 mEQ/L (3.4-4.9) Chloride Level 111 mEQ/L (98-107) H Carbon Dioxide Level 25 mEQ/L (20-30) Anion Gap 10 (5-15) Blood Urea Nitrogen 31 mg/dL (7-23) H Creatinine 1.3 mg/dL (0.5-0.9) H Estimat Glomerular Filtration Rate 42.8 mL/min (>60) Glucose Level 106 mg/dL (74-106) Calcium Level 8.2 mg/dL (8.6-10.2) L Phosphorus Level 3.7 mg/dL (2.5-4.8) Magnesium Level 2.3 mg/dL (1.7-2.5) Total Bilirubin 1.0 mg/dL (0.0-1.2) Aspartate Amino Transf (AST/SGOT) 35 U/L (5-40) Alanine Aminotransferase (ALT/SGPT) 16 U/L (3-33) Alkaline Phosphatase 124 U/L (35-104) H Total Protein 6.5 g/dL (6.6-8.7) L Albumin 1.5 g/dL (3.5-5.2) L Globulin 5.0 g/dL Albumin/Globulin Ratio 0.3 (1.0-2.7) L MANFRED YING February 18, 2017 11:02
[2017-02-18] MEDS ORDERED: Morphine Sulfate 2mg/ml Inj IVP PRN (13:00)
--- NOTE | 2017-02-18 13:00 | General Progress Note ---
Assessment/Plan Problem List: (1) Liver cirrhosis ICD Codes: K74.60 - Unspecified cirrhosis of liver SNOMED: 89956320 Qualifiers: Qualified Codes: K74.60 - Unspecified cirrhosis of liver (2) Encephalopathy ICD Codes: G93.40 - Encephalopathy, unspecified SNOMED: 55890336, 596744174 (3) UTI (urinary tract infection) ICD Codes: N39.0 - Urinary tract infection, site not specified SNOMED: 46700408 Qualifiers: Qualified Codes: N30.01 - Acute cystitis with hematuria (4) Encephalopathy, multifactorial, hepatic/septic/renal (5) Altered mental state ICD Codes: R41.82 - Altered mental status, unspecified SNOMED: 516626281, 845637460 Qualifiers: Qualified Codes: R41.82 - Altered mental status, unspecified (6) Severe malnutrition ICD Codes: E43 - Unspecified severe protein-calorie malnutrition SNOMED: 29420793 (7) Psychiatric disorder ICD Codes: F99 - Mental disorder, not otherwise specified SNOMED: 92090965, 557578789 Status: unchanged Assessment/Plan ot pt diet ivf psyc neuro gi tx cbc bmp am promise ltach transfer Subjective Constitutional: Reports: weakness Allergies: Coded Allergies: PENICILLINS (Verified Allergy, Unknown, 02/10/17) All Systems: reviewed and negative except above Subjective 02nc ng sleepy in icu Objective Last 24 Hour Vital Signs Date Time Temp Pulse Resp B/P Pulse Ox O2 Delivery O2 Flow Rate FiO2 02/18/17 12:00 98.5 82 20 143/56 98 Nasal Cannula 3.0 02/18/17 12:00 87 02/18/17 11:00 87 18 129/49 98 Nasal Cannula 3.0 02/18/17 10:00 94 18 127/50 97 Nasal Cannula 3.0 02/18/17 09:00 83 18 135/55 98 Nasal Cannula 3.0 02/18/17 08:00 85 02/18/17 08:00 98.2 84 16 158/52 98 Nasal Cannula 3.0 02/18/17 07:00 77 16 135/47 98 Nasal Cannula 3.0 02/18/17 06:00 77 14 118/48 97 Nasal Cannula 3.0 02/18/17 05:00 84 17 135/64 96 Nasal Cannula 3.0 02/18/17 04:00 98.1 79 16 105/38 98 Nasal Cannula 3.0 02/18/17 04:00 79 02/18/17 03:00 79 17 102/47 100 Nasal Cannula 3.0 02/18/17 02:00 80 15 108/55 100 Nasal Cannula 3.0 02/18/17 01:00 81 12 108/45 98 Nasal Cannula 3.0 02/18/17 00:00 85 02/18/17 00:00 98.1 85 13 122/53 96 Nasal Cannula 3.0 02/17/17 23:00 90 16 93/51 96 Nasal Cannula 3.0 02/17/17 22:00 89 16 99/52 98 Nasal Cannula 3.0 02/17/17 22:00 112/62 02/17/17 21:00 89 17 112/62 97 Nasal Cannula 3.0 02/17/17 20:00 98.0 76 14 103/54 99 Nasal Cannula 3.0 02/17/17 20:00 76 02/17/17 19:20 Nasal Cannula 3.0 32 02/17/17 19:20 96 Nasal Cannula 3.0 32 02/17/17 19:00 79 14 93/52 98 Nasal Cannula 3.0 02/17/17 18:01 97.8 02/17/17 18:00 77 16 113/65 97 Nasal Cannula 3.0 02/17/17 17:00 74 17 114/49 98 Nasal Cannula 3.0 02/17/17 16:00 97.8 87 20 104/50 94 Nasal Cannula 3.0 02/17/17 16:00 83 02/17/17 15:00 75 14 105/58 98 Nasal Cannula 3.0 02/17/17 14:00 88 20 100/45 96 Nasal Cannula 3.0 02/17/17 13:00 73 15 94/43 99 Nasal Cannula 3.0 Intake and Output 02/17/17 02/18/17 18:59 06:59 Intake Total 1796.25 ml 1870 ml Output Total 1195 ml 1155 ml Balance 601.25 ml 715 ml Free Water 50 ml IV Total 1236.25 ml 1260 ml Tube Feeding 360 ml 360 ml Other 150 ml 250 ml Output Urine Total 1195 ml 1155 ml Laboratory Tests 02/18/17 04:00: White Blood Count 3.4L, Red Blood Count 2.59L, Hemoglobin 8.8L, Hematocrit 25.2L , Mean Corpuscular Volume 97, Mean Corpuscular Hemoglobin 34.0H, Mean Corpuscular Hemoglobin Concent 35.0, Red Cell Distribution Width 15.1H, Platelet Count 40L, Mean Platelet Volume 8.4, Neutrophils (%) (Auto) , Lymphocytes (%) (Auto) , Monocytes (%) (Auto) , Eosinophils (%) (Auto) , Basophils (%) (Auto) , Differential Total Cells Counted 100, Neutrophils % ( Manual) 67, Lymphocytes % (Manual) 21, Monocytes % (Manual) 10, Eosinophils % ( Manual) 2, Basophils % (Manual) 0, Band Neutrophils 0, Platelet Estimate DecreasedL, Platelet Morphology Normal, Hypochromasia 1+, Anisocytosis 1+, Sodium Level 146H, Potassium Level 4.2, Chloride Level 111H, Carbon Dioxide Level 25, Anion Gap 10, Blood Urea Nitrogen 31H, Creatinine 1.3H, Estimat Glomerular Filtration Rate 42.8, Glucose Level 106, Calcium Level 8.2L, Phosphorus Level 3.7, Magnesium Level 2.3, Total Bilirubin 1.0, Aspartate Amino Transf (AST/SGOT) 35, Alanine Aminotransferase (ALT/SGPT) 16, Alkaline Phosphatase 124H, Total Protein 6.5L, Albumin 1.5L, Globulin 5.0, Albumin/ Globulin Ratio 0.3L Height (Feet): 5 Height (Inches): 6.00 Weight (Pounds): 130 General Appearance: lethargic EENT: normal ENT inspection Neck: normal alignment Cardiovascular: normal peripheral pulses, normal rate, regular rhythm Respiratory/Chest: chest wall non-tender, lungs clear, decreased breath sounds Abdomen: normal bowel sounds, non tender, soft Extremities: normal inspection Edema: no edema noted Arm (L), no edema noted Arm (R), no edema noted Leg (L), no edema noted Leg (R), no edema noted Pedal (L), no edema noted Pedal (R), no edema noted Generalized Neurologic: motor weakness Skin: normal pigmentation, warm/dry TERE GILES February 18, 2017 13:00
[2017-02-18] MEDS ORDERED: Mylanta II UD 30ml NG PRN (14:00)
--- NOTE | 2017-02-18 14:08 | Infectious Diseases Prog Note ---
Assessment/Plan Problems: (1) Candiduria Assessment & Plan: adiel out renal stone, will start fluconazol for two weeks, order renal US, recommend to change laguerre catheter, D/W nurse (2) Hypotension Assessment & Plan: rule out sepsis, repeated blood culture is negative so far , will continue vancomycin and aztreonam for now pending further culture results (3) UTI (urinary tract infection) Assessment & Plan: due to methicillin sensitive staph aureus, continue vancomycin dosed by pharmacy, for 10 days (4) Encephalopathy, multifactorial, hepatic/septic/renal Assessment & Plan: had elevated ammonia level, continue lactulose, and antibiotics for UTI, neurology is following (5) Liver cirrhosis Assessment & Plan: with negative hepatitis panel, continue supportive care, avoid hepatotoxic meds, consult GI Subjective ROS Limited/Unobtainable: Yes Allergies: Coded Allergies: PENICILLINS (Verified Allergy, Unknown, 02/10/17) Subjective she was alert , but confused, mildly agitated, open eyes spontaneously, not in distress . afebrile, dosen't follow commands Objective Vital Signs Last 24 Hour Vital Signs Date Time Temp Pulse Resp B/P Pulse Ox O2 Delivery O2 Flow Rate FiO2 02/18/17 13:00 89 18 143/55 98 Nasal Cannula 3.0 02/18/17 12:00 98.5 82 20 143/56 98 Nasal Cannula 3.0 02/18/17 12:00 87 02/18/17 11:00 87 18 129/49 98 Nasal Cannula 3.0 02/18/17 10:00 94 18 127/50 97 Nasal Cannula 3.0 02/18/17 09:00 83 18 135/55 98 Nasal Cannula 3.0 02/18/17 08:00 85 02/18/17 08:00 98.2 84 16 158/52 98 Nasal Cannula 3.0 02/18/17 07:00 77 16 135/47 98 Nasal Cannula 3.0 02/18/17 06:00 77 14 118/48 97 Nasal Cannula 3.0 02/18/17 05:00 84 17 135/64 96 Nasal Cannula 3.0 02/18/17 04:00 98.1 79 16 105/38 98 Nasal Cannula 3.0 02/18/17 04:00 79 02/18/17 03:00 79 17 102/47 100 Nasal Cannula 3.0 02/18/17 02:00 80 15 108/55 100 Nasal Cannula 3.0 02/18/17 01:00 81 12 108/45 98 Nasal Cannula 3.0 02/18/17 00:00 85 02/18/17 00:00 98.1 85 13 122/53 96 Nasal Cannula 3.0 02/17/17 23:00 90 16 93/51 96 Nasal Cannula 3.0 02/17/17 22:00 89 16 99/52 98 Nasal Cannula 3.0 02/17/17 22:00 112/62 02/17/17 21:00 89 17 112/62 97 Nasal Cannula 3.0 02/17/17 20:00 98.0 76 14 103/54 99 Nasal Cannula 3.0 02/17/17 20:00 76 02/17/17 19:20 Nasal Cannula 3.0 32 02/17/17 19:20 96 Nasal Cannula 3.0 32 02/17/17 19:00 79 14 93/52 98 Nasal Cannula 3.0 02/17/17 18:01 97.8 02/17/17 18:00 77 16 113/65 97 Nasal Cannula 3.0 02/17/17 17:00 74 17 114/49 98 Nasal Cannula 3.0 02/17/17 16:00 97.8 87 20 104/50 94 Nasal Cannula 3.0 02/17/17 16:00 83 02/17/17 15:00 75 14 105/58 98 Nasal Cannula 3.0 Height (Feet): 5 Height (Inches): 6.00 Weight (Pounds): 130 General Appearance: WD/WN, no acute distress HEENT: normocephalic, atraumatic, anicteric, mucous membranes moist Respiratory/Chest: chest wall non-tender, lungs clear, normal breath sounds, no respiratory distress, no accessory muscle use Cardiovascular: normal peripheral pulses, normal rate, regular rhythm, no gallop/murmur Abdomen: normal bowel sounds, soft, non tender, no organomegaly, non distended , no mass Extremities: no cyanosis, no clubbing Skin: no rash, no lesions Microbiology Date/Time Source Procedure Growth Status 02/16/17 16:00 Blood Blood Culture - Preliminary NO GROWTH AFTER 24 HOURS Resulted 02/16/17 15:45 Blood Blood Culture - Preliminary NO GROWTH AFTER 24 HOURS Resulted 02/16/17 15:30 Indwelling Cath Urine Culture - Preliminary Yeast Species Resulted Laboratory Tests Test 02/18/17 04:00 White Blood Count 3.4 K/UL (4.8-10.8) L Red Blood Count 2.59 M/UL (4.20-5.40) L Hemoglobin 8.8 G/DL (12.0-16.0) L Hematocrit 25.2 % (37.0-47.0) L Mean Corpuscular Volume 97 FL (80-99) Mean Corpuscular Hemoglobin 34.0 PG (27.0-31.0) H Mean Corpuscular Hemoglobin Concent 35.0 G/DL (32.0-36.0) Red Cell Distribution Width 15.1 % (11.6-14.8) H Platelet Count 40 K/UL (150-450) L Mean Platelet Volume 8.4 FL (6.5-10.1) Neutrophils (%) (Auto) % (45.0-75.0) Lymphocytes (%) (Auto) % (20.0-45.0) Monocytes (%) (Auto) % (1.0-10.0) Eosinophils (%) (Auto) % (0.0-3.0) Basophils (%) (Auto) % (0.0-2.0) Differential Total Cells Counted 100 Neutrophils % (Manual) 67 % (45-75) Lymphocytes % (Manual) 21 % (20-45) Monocytes % (Manual) 10 % (1-10) Eosinophils % (Manual) 2 % (0-3) Basophils % (Manual) 0 % (0-2) Band Neutrophils 0 % (0-8) Platelet Estimate Decreased L Platelet Morphology Normal Hypochromasia 1+ Anisocytosis 1+ Sodium Level 146 mEQ/L (135-145) H Potassium Level 4.2 mEQ/L (3.4-4.9) Chloride Level 111 mEQ/L (98-107) H Carbon Dioxide Level 25 mEQ/L (20-30) Anion Gap 10 (5-15) Blood Urea Nitrogen 31 mg/dL (7-23) H Creatinine 1.3 mg/dL (0.5-0.9) H Estimat Glomerular Filtration Rate 42.8 mL/min (>60) Glucose Level 106 mg/dL (74-106) Calcium Level 8.2 mg/dL (8.6-10.2) L Phosphorus Level 3.7 mg/dL (2.5-4.8) Magnesium Level 2.3 mg/dL (1.7-2.5) Total Bilirubin 1.0 mg/dL (0.0-1.2) Aspartate Amino Transf (AST/SGOT) 35 U/L (5-40) Alanine Aminotransferase (ALT/SGPT) 16 U/L (3-33) Alkaline Phosphatase 124 U/L (35-104) H Total Protein 6.5 g/dL (6.6-8.7) L Albumin 1.5 g/dL (3.5-5.2) L Globulin 5.0 g/dL Albumin/Globulin Ratio 0.3 (1.0-2.7) L Current Medications Medications (Trade) Dose Ordered Sig/Gill Route PRN Reason Start Time Stop Time Status Last Admin Dose Admin Al Hydroxide/Mg Hydroxide (Mylanta II) 30 ml Q6H PRN NG dyspepsia 02/18/17 14:00 03/20/17 13:59 Aripiprazole (Abilify) 10 mg DAILY NG 02/19/17 09:00 03/21/17 08:59 Aztreonam 1 gm/ Dextrose 55 ml @ 110 mls/hr Q8HR IVPB 02/18/17 14:00 02/25/17 13:59 Dextrose (Dextrose 50%) STAT PRN IV Hypoglycemia 02/18/17 13:00 03/20/17 12:59 Fluconazole/ Sodium Chloride 100 ml @ 100 mls/hr Q24H IV 02/19/17 13:00 02/26/17 12:59 Lactulose (Cephulac) 30 gm EVERY 8 HOURS NG 02/18/17 14:00 03/20/17 13:59 Lansoprazole (Prevacid) 30 mg ACBREAKFAST NG 02/19/17 06:30 03/21/17 06:29 Morphine Sulfate (Morphine Sulfate) 2 mg Q4H PRN IVP SEVERE PAIN 02/18/17 13:00 02/25/17 12:59 Ondansetron HCl (Zofran) 4 mg Q6H PRN IVP Nausea & Vomiting 02/18/17 14:00 03/20/17 13:59 Quetiapine Fumarate (SEROquel) 100 mg QHS NG 02/18/17 21:00 03/20/17 20:59 Rifaximin (Xifaxan) 550 mg EVERY 12 HOURS NG 02/18/17 21:00 02/25/17 20:59 Sodium Chloride 1,000 ml @ 50 mls/hr Q20H IV 02/18/17 14:00 03/20/17 13:59 Valproic Acid (Depakene) 500 mg Q12HR GT 02/18/17 21:00 03/20/17 20:59 Vancomycin HCl (Vanco rx to dose) 1 ea DAILY PRN MISC .Per Rx Protocol 02/18/17 14:00 03/20/17 13:59 Vancomycin HCl/ Dextrose (Vancomycin/D5W) 275 ml @ 183.708 mls/hr Q24H IVPB 02/19/17 08:00 02/24/17 07:59 Pura Klein M.D. February 18, 2017 14:08
--- NOTE | 2017-02-18 14:11 | Cardiac Electrophysiology PN ---
Assessment/Plan Assessment/Plan 1. Hypotension, likely due to volume depletion and possible sepsis. Ruled out for AL.Resolved. BP 120-140 2. Sinus tachycardia due to sepsis.No fib or SVT. Heart rate is better 3. Schizophrenia, on Haldol. 4. Cirrhosis of the liver, on lactulose 5. Dysphagia. NG feeding in progress.Awaiting swallow eval. 6. Agitation. Restraint ordered as she was pulling on NG tube. WALE RN. Subjective Subjective Transferred out of ICU . Confused. Pulling on her NG tube and moaning.RN at bedside. Objective Last 24 Hour Vital Signs Date Time Temp Pulse Resp B/P Pulse Ox O2 Delivery O2 Flow Rate FiO2 02/18/17 13:00 89 18 143/55 98 Nasal Cannula 3.0 02/18/17 12:00 98.5 82 20 143/56 98 Nasal Cannula 3.0 02/18/17 12:00 87 02/18/17 11:00 87 18 129/49 98 Nasal Cannula 3.0 02/18/17 10:00 94 18 127/50 97 Nasal Cannula 3.0 02/18/17 09:00 83 18 135/55 98 Nasal Cannula 3.0 02/18/17 08:00 85 02/18/17 08:00 98.2 84 16 158/52 98 Nasal Cannula 3.0 02/18/17 07:00 77 16 135/47 98 Nasal Cannula 3.0 02/18/17 06:00 77 14 118/48 97 Nasal Cannula 3.0 02/18/17 05:00 84 17 135/64 96 Nasal Cannula 3.0 02/18/17 04:00 98.1 79 16 105/38 98 Nasal Cannula 3.0 02/18/17 04:00 79 02/18/17 03:00 79 17 102/47 100 Nasal Cannula 3.0 02/18/17 02:00 80 15 108/55 100 Nasal Cannula 3.0 02/18/17 01:00 81 12 108/45 98 Nasal Cannula 3.0 02/18/17 00:00 85 02/18/17 00:00 98.1 85 13 122/53 96 Nasal Cannula 3.0 02/17/17 23:00 90 16 93/51 96 Nasal Cannula 3.0 02/17/17 22:00 89 16 99/52 98 Nasal Cannula 3.0 02/17/17 22:00 112/62 5/11/17 21:00 89 17 112/62 97 Nasal Cannula 3.0 02/17/17 20:00 98.0 76 14 103/54 99 Nasal Cannula 3.0 02/17/17 20:00 76 02/17/17 19:20 Nasal Cannula 3.0 32 02/17/17 19:20 96 Nasal Cannula 3.0 32 02/17/17 19:00 79 14 93/52 98 Nasal Cannula 3.0 02/17/17 18:01 97.8 02/17/17 18:00 77 16 113/65 97 Nasal Cannula 3.0 02/17/17 17:00 74 17 114/49 98 Nasal Cannula 3.0 02/17/17 16:00 97.8 87 20 104/50 94 Nasal Cannula 3.0 02/17/17 16:00 83 02/17/17 15:00 75 14 105/58 98 Nasal Cannula 3.0 Intake and Output 02/17/17 02/18/17 19:00 07:00 Intake Total 1831.25 ml 1770 ml Output Total 1300 ml 1075 ml Balance 531.25 ml 695 ml Free Water 50 ml IV Total 1271.25 ml 1160 ml Tube Feeding 360 ml 360 ml Other 150 ml 250 ml Output Urine Total 1300 ml 1075 ml Laboratory Tests Test 02/18/17 04:00 White Blood Count 3.4 K/UL (4.8-10.8) L Red Blood Count 2.59 M/UL (4.20-5.40) L Hemoglobin 8.8 G/DL (12.0-16.0) L Hematocrit 25.2 % (37.0-47.0) L Mean Corpuscular Volume 97 FL (80-99) Mean Corpuscular Hemoglobin 34.0 PG (27.0-31.0) H Mean Corpuscular Hemoglobin Concent 35.0 G/DL (32.0-36.0) Red Cell Distribution Width 15.1 % (11.6-14.8) H Platelet Count 40 K/UL (150-450) L Mean Platelet Volume 8.4 FL (6.5-10.1) Neutrophils (%) (Auto) % (45.0-75.0) Lymphocytes (%) (Auto) % (20.0-45.0) Monocytes (%) (Auto) % (1.0-10.0) Eosinophils (%) (Auto) % (0.0-3.0) Basophils (%) (Auto) % (0.0-2.0) Differential Total Cells Counted 100 Neutrophils % (Manual) 67 % (45-75) Lymphocytes % (Manual) 21 % (20-45) Monocytes % (Manual) 10 % (1-10) Eosinophils % (Manual) 2 % (0-3) Basophils % (Manual) 0 % (0-2) Band Neutrophils 0 % (0-8) Platelet Estimate Decreased L Platelet Morphology Normal Hypochromasia 1+ Anisocytosis 1+ Sodium Level 146 mEQ/L (135-145) H Potassium Level 4.2 mEQ/L (3.4-4.9) Chloride Level 111 mEQ/L (98-107) H Carbon Dioxide Level 25 mEQ/L (20-30) Anion Gap 10 (5-15) Blood Urea Nitrogen 31 mg/dL (7-23) H Creatinine 1.3 mg/dL (0.5-0.9) H Estimat Glomerular Filtration Rate 42.8 mL/min (>60) Glucose Level 106 mg/dL (74-106) Calcium Level 8.2 mg/dL (8.6-10.2) L Phosphorus Level 3.7 mg/dL (2.5-4.8) Magnesium Level 2.3 mg/dL (1.7-2.5) Total Bilirubin 1.0 mg/dL (0.0-1.2) Aspartate Amino Transf (AST/SGOT) 35 U/L (5-40) Alanine Aminotransferase (ALT/SGPT) 16 U/L (3-33) Alkaline Phosphatase 124 U/L (35-104) H Total Protein 6.5 g/dL (6.6-8.7) L Albumin 1.5 g/dL (3.5-5.2) L Globulin 5.0 g/dL Albumin/Globulin Ratio 0.3 (1.0-2.7) L Microbiology Date/Time Source Procedure Growth Status 02/16/17 16:00 Blood Blood Culture - Preliminary NO GROWTH AFTER 24 HOURS Resulted 02/16/17 15:45 Blood Blood Culture - Preliminary NO GROWTH AFTER 24 HOURS Resulted 02/16/17 15:30 Indwelling Cath Urine Culture - Preliminary Yeast Species Resulted Objective HEAD AND NECK: No JVD.NG tube is in. LUNGS: Clear. CARDIOVASCULAR: Regular S1 and S2 with no gallop or murmur. ABDOMEN: Abdomen is soft. EXTREMITIES: 1+ pitting edema. ELIUD LALA February 18, 2017 14:11
--- NOTE | 2017-02-18 16:02 | Nephrology Progress Note ---
Assessment/Plan Problem List: (1) SHERIE (acute kidney injury) (2) Liver cirrhosis (3) UTI (urinary tract infection) (4) Encephalopathy, multifactorial, hepatic/septic/renal (5) Altered mental state (6) Psychiatric disorder Plan Elevated ammonia level, continue lactulose Free water flush Monitor BUN/cr Monitor I&O Monitor lytes Monitor neuro status Continue tube feeding Abx per ID AM labs Subjective ROS Limited/Unobtainable: Yes Subjective In bed, disoriented, agitated, sitter at beside. Objective Objective Last 24 Hour Vital Signs Date Time Temp Pulse Resp B/P Pulse Ox O2 Delivery O2 Flow Rate FiO2 02/18/17 13:00 89 18 143/55 98 Nasal Cannula 3.0 02/18/17 12:00 98.5 82 20 143/56 98 Nasal Cannula 3.0 02/18/17 12:00 87 02/18/17 11:00 87 18 129/49 98 Nasal Cannula 3.0 02/18/17 10:00 94 18 127/50 97 Nasal Cannula 3.0 02/18/17 09:00 83 18 135/55 98 Nasal Cannula 3.0 02/18/17 08:00 85 02/18/17 08:00 98.2 84 16 158/52 98 Nasal Cannula 3.0 02/18/17 07:00 77 16 135/47 98 Nasal Cannula 3.0 02/18/17 06:00 77 14 118/48 97 Nasal Cannula 3.0 02/18/17 05:00 84 17 135/64 96 Nasal Cannula 3.0 02/18/17 04:00 98.1 79 16 105/38 98 Nasal Cannula 3.0 02/18/17 04:00 79 02/18/17 03:00 79 17 102/47 100 Nasal Cannula 3.0 02/18/17 02:00 80 15 108/55 100 Nasal Cannula 3.0 02/18/17 01:00 81 12 108/45 98 Nasal Cannula 3.0 02/18/17 00:00 85 02/18/17 00:00 98.1 85 13 122/53 96 Nasal Cannula 3.0 02/17/17 23:00 90 16 93/51 96 Nasal Cannula 3.0 02/17/17 22:00 89 16 99/52 98 Nasal Cannula 3.0 02/17/17 22:00 112/62 02/17/17 21:00 89 17 112/62 97 Nasal Cannula 3.0 02/17/17 20:00 98.0 76 14 103/54 99 Nasal Cannula 3.0 02/17/17 20:00 76 02/17/17 19:20 Nasal Cannula 3.0 32 02/17/17 19:20 96 Nasal Cannula 3.0 32 02/17/17 19:00 79 14 93/52 98 Nasal Cannula 3.0 02/17/17 18:01 97.8 02/17/17 18:00 77 16 113/65 97 Nasal Cannula 3.0 02/17/17 17:00 74 17 114/49 98 Nasal Cannula 3.0 02/17/17 16:00 97.8 87 20 104/50 94 Nasal Cannula 3.0 02/17/17 16:00 83 Intake and Output 02/17/17 02/18/17 19:00 07:00 Intake Total 1831.25 ml 1770 ml Output Total 1300 ml 1075 ml Balance 531.25 ml 695 ml Free Water 50 ml IV Total 1271.25 ml 1160 ml Tube Feeding 360 ml 360 ml Other 150 ml 250 ml Output Urine Total 1300 ml 1075 ml Laboratory Tests 02/18/17 04:00: White Blood Count 3.4L, Red Blood Count 2.59L, Hemoglobin 8.8L, Hematocrit 25.2L , Mean Corpuscular Volume 97, Mean Corpuscular Hemoglobin 34.0H, Mean Corpuscular Hemoglobin Concent 35.0, Red Cell Distribution Width 15.1H, Platelet Count 40L, Mean Platelet Volume 8.4, Neutrophils (%) (Auto) , Lymphocytes (%) (Auto) , Monocytes (%) (Auto) , Eosinophils (%) (Auto) , Basophils (%) (Auto) , Differential Total Cells Counted 100, Neutrophils % ( Manual) 67, Lymphocytes % (Manual) 21, Monocytes % (Manual) 10, Eosinophils % ( Manual) 2, Basophils % (Manual) 0, Band Neutrophils 0, Platelet Estimate DecreasedL, Platelet Morphology Normal, Hypochromasia 1+, Anisocytosis 1+, Sodium Level 146H, Potassium Level 4.2, Chloride Level 111H, Carbon Dioxide Level 25, Anion Gap 10, Blood Urea Nitrogen 31H, Creatinine 1.3H, Estimat Glomerular Filtration Rate 42.8, Glucose Level 106, Calcium Level 8.2L, Phosphorus Level 3.7, Magnesium Level 2.3, Total Bilirubin 1.0, Aspartate Amino Transf (AST/SGOT) 35, Alanine Aminotransferase (ALT/SGPT) 16, Alkaline Phosphatase 124H, Total Protein 6.5L, Albumin 1.5L, Globulin 5.0, Albumin/ Globulin Ratio 0.3L Height (Feet): 5 Height (Inches): 6.00 Weight (Pounds): 130 General Appearance: agitated Neck: normal alignment, supple Cardiovascular: regular rhythm Respiratory/Chest: normal breath sounds, no respiratory distress Abdomen: non tender, soft Genitourinary/Rectal: other - laguerre catheter Extremities: non-tender, normal inspection Neurologic: disoriented Madeline Fischer N.P. February 18, 2017 16:02
[2017-02-19] VITALS: BP 120/85
[2017-02-19 04:00] VITALS: BP 132/70
[2017-02-19] MEDS: Aztreonam Inj 1 GM in D5W 55 ML IVPB SCH (06:18)
[2017-02-19] MEDS: Lactulose 20gm/30ml UDC NG SCH ×3 (06:18→21:39)
[2017-02-19 08:00] VITALS: BP 122/88
[2017-02-19] MEDS ORDERED: Vancomycin 750 MG in D5W 275 ML IVPB SCH (08:00)
[2017-02-19 08:16] LABS: MEAN CORPUSCULAR HEMOGLOBIN 32.6 PG (27.0-31.0); MEAN CORPUSCULAR HGB CONC 33.6 G/DL (32.0-36.0); MEAN CORPUSCULAR VOLUME 97 FL (80-99); MEAN PLATELET VOLUME 10.5 FL (6.5-10.1); PLATELET COUNT 37 K/UL (150-450); RED BLOOD COUNT 2.92 M/UL (4.20-5.40); RED CELL DISTRIBUTION WIDTH 15.4 % (11.6-14.8); WHITE BLOOD COUNT 3.5 K/UL (4.8-10.8)
--- NOTE | 2017-02-19 08:31 | General Progress Note ---
Assessment/Plan Problem List: (1) Liver cirrhosis ICD Codes: K74.60 - Unspecified cirrhosis of liver SNOMED: 56482736 Qualifiers: Qualified Codes: K74.60 - Unspecified cirrhosis of liver (2) Encephalopathy ICD Codes: G93.40 - Encephalopathy, unspecified SNOMED: 88129601, 714169277 (3) UTI (urinary tract infection) ICD Codes: N39.0 - Urinary tract infection, site not specified SNOMED: 46475040 Qualifiers: Qualified Codes: N30.01 - Acute cystitis with hematuria (4) Psychiatric disorder ICD Codes: F99 - Mental disorder, not otherwise specified SNOMED: 72392013, 038926870 Assessment/Plan lactulose and xifaxan NGTF fu labs supportive care Subjective ROS Limited/Unobtainable: No Allergies: Coded Allergies: PENICILLINS (Verified Allergy, Unknown, 02/10/17) Objective Last 24 Hour Vital Signs Date Time Temp Pulse Resp B/P Pulse Ox O2 Delivery O2 Flow Rate FiO2 02/19/17 04:00 80 02/19/17 04:00 96.8 85 18 132/70 96 Nasal Cannula 2.0 02/19/17 00:00 103 02/19/17 00:00 96.8 94 16 120/85 95 Nasal Cannula 2.0 02/18/17 20:00 86 02/18/17 20:00 97.3 89 18 150/64 98 Nasal Cannula 2.0 02/18/17 18:00 98.2 90 18 135/65 98 Nasal Cannula 3.0 02/18/17 17:00 98.3 91 18 142/60 98 Nasal Cannula 3.0 02/18/17 16:00 82 02/18/17 16:00 98.2 86 20 140/53 98 Nasal Cannula 3.0 02/18/17 14:00 97 02/18/17 13:00 89 18 143/55 98 Nasal Cannula 3.0 02/18/17 12:00 98.5 82 20 143/56 98 Nasal Cannula 3.0 02/18/17 12:00 87 02/18/17 11:00 87 18 129/49 98 Nasal Cannula 3.0 02/18/17 10:00 94 18 127/50 97 Nasal Cannula 3.0 02/18/17 09:00 83 18 135/55 98 Nasal Cannula 3.0 Intake and Output 02/18/17 02/19/17 19:00 07:00 Intake Total 1745.708 ml 1275 ml Output Total 660 ml 1275 ml Balance 1085.708 ml 0 ml Free Water 300 ml 200 ml IV Total 1085.708 ml 655 ml Tube Feeding 360 ml 360 ml Other 60 ml Output Urine Total 660 ml 1275 ml Laboratory Tests 02/19/17 07:48: White Blood Count 3.5L, Red Blood Count 2.92L, Hemoglobin 9.5L, Hematocrit 28.3L , Mean Corpuscular Volume 97, Mean Corpuscular Hemoglobin 32.6H, Mean Corpuscular Hemoglobin Concent 33.6, Red Cell Distribution Width 15.4H, Platelet Count 37L, Mean Platelet Volume 10.5H, Neutrophils (%) (Auto) , Lymphocytes (%) (Auto) , Monocytes (%) (Auto) , Eosinophils (%) (Auto) , Basophils (%) (Auto) , Neutrophils % (Manual) [Pending], Lymphocytes % (Manual) [Pending], Platelet Estimate [Pending], Platelet Morphology [Pending], Sodium Level [Pending], Potassium Level [Pending], Chloride Level [Pending], Carbon Dioxide Level [Pending], Blood Urea Nitrogen [Pending], Creatinine [Pending], Estimat Glomerular Filtration Rate [Pending], Glucose Level [Pending], Calcium Level [Pending], Phosphorus Level [Pending], Magnesium Level [Pending], Total Bilirubin [Pending], Aspartate Amino Transf (AST/SGOT) [Pending], Alanine Aminotransferase (ALT/SGPT) [Pending], Alkaline Phosphatase [Pending], Total Protein [Pending], Albumin [Pending], Globulin [Pending], Random Vancomycin Level [Pending] Height (Feet): 5 Height (Inches): 6.00 Weight (Pounds): 130 General Appearance: no apparent distress EENT: normal ENT inspection Neck: supple Cardiovascular: normal rate Respiratory/Chest: decreased breath sounds Abdomen: normal bowel sounds, non tender, soft Extremities: non-tender STACY KINSEY February 19, 2017 08:31
--- NOTE | 2017-02-19 08:33 | General Progress Note ---
Assessment/Plan Problem List: (1) Liver cirrhosis ICD Codes: K74.60 - Unspecified cirrhosis of liver SNOMED: 38441178 Qualifiers: Qualified Codes: K74.60 - Unspecified cirrhosis of liver (2) Encephalopathy ICD Codes: G93.40 - Encephalopathy, unspecified SNOMED: 53915014, 537632818 (3) UTI (urinary tract infection) ICD Codes: N39.0 - Urinary tract infection, site not specified SNOMED: 82500569 Qualifiers: Qualified Codes: N30.01 - Acute cystitis with hematuria (4) Encephalopathy, multifactorial, hepatic/septic/renal (5) Altered mental state ICD Codes: R41.82 - Altered mental status, unspecified SNOMED: 785249368, 552741827 Qualifiers: Qualified Codes: R41.82 - Altered mental status, unspecified (6) Severe malnutrition ICD Codes: E43 - Unspecified severe protein-calorie malnutrition SNOMED: 03521415 (7) Psychiatric disorder ICD Codes: F99 - Mental disorder, not otherwise specified SNOMED: 03661535, 429936412 Status: unchanged Assessment/Plan ot pt diet ivf psyc neuro gi tx cbc bmp am promise ltach transfer Subjective Constitutional: Reports: weakness Allergies: Coded Allergies: PENICILLINS (Verified Allergy, Unknown, 02/10/17) All Systems: reviewed and negative except above Subjective 02nc ng sleepy Objective Last 24 Hour Vital Signs Date Time Temp Pulse Resp B/P Pulse Ox O2 Delivery O2 Flow Rate FiO2 02/19/17 04:00 80 02/19/17 04:00 96.8 85 18 132/70 96 Nasal Cannula 2.0 02/19/17 00:00 103 02/19/17 00:00 96.8 94 16 120/85 95 Nasal Cannula 2.0 02/18/17 20:00 86 02/18/17 20:00 97.3 89 18 150/64 98 Nasal Cannula 2.0 02/18/17 18:00 98.2 90 18 135/65 98 Nasal Cannula 3.0 02/18/17 17:00 98.3 91 18 142/60 98 Nasal Cannula 3.0 02/18/17 16:00 82 02/18/17 16:00 98.2 86 20 140/53 98 Nasal Cannula 3.0 02/18/17 14:00 97 02/18/17 13:00 89 18 143/55 98 Nasal Cannula 3.0 02/18/17 12:00 98.5 82 20 143/56 98 Nasal Cannula 3.0 02/18/17 12:00 87 02/18/17 11:00 87 18 129/49 98 Nasal Cannula 3.0 02/18/17 10:00 94 18 127/50 97 Nasal Cannula 3.0 02/18/17 09:00 83 18 135/55 98 Nasal Cannula 3.0 Intake and Output 02/18/17 02/19/17 19:00 07:00 Intake Total 1745.708 ml 1275 ml Output Total 660 ml 1275 ml Balance 1085.708 ml 0 ml Free Water 300 ml 200 ml IV Total 1085.708 ml 655 ml Tube Feeding 360 ml 360 ml Other 60 ml Output Urine Total 660 ml 1275 ml Laboratory Tests 02/19/17 07:48: White Blood Count 3.5L, Red Blood Count 2.92L, Hemoglobin 9.5L, Hematocrit 28.3L , Mean Corpuscular Volume 97, Mean Corpuscular Hemoglobin 32.6H, Mean Corpuscular Hemoglobin Concent 33.6, Red Cell Distribution Width 15.4H, Platelet Count 37L, Mean Platelet Volume 10.5H, Neutrophils (%) (Auto) , Lymphocytes (%) (Auto) , Monocytes (%) (Auto) , Eosinophils (%) (Auto) , Basophils (%) (Auto) , Neutrophils % (Manual) [Pending], Lymphocytes % (Manual) [Pending], Platelet Estimate [Pending], Platelet Morphology [Pending], Sodium Level [Pending], Potassium Level [Pending], Chloride Level [Pending], Carbon Dioxide Level [Pending], Blood Urea Nitrogen [Pending], Creatinine [Pending], Estimat Glomerular Filtration Rate [Pending], Glucose Level [Pending], Calcium Level [Pending], Phosphorus Level [Pending], Magnesium Level [Pending], Total Bilirubin [Pending], Aspartate Amino Transf (AST/SGOT) [Pending], Alanine Aminotransferase (ALT/SGPT) [Pending], Alkaline Phosphatase [Pending], Total Protein [Pending], Albumin [Pending], Globulin [Pending], Random Vancomycin Level [Pending] Height (Feet): 5 Height (Inches): 6.00 Weight (Pounds): 130 General Appearance: lethargic EENT: normal ENT inspection Neck: normal alignment Cardiovascular: normal peripheral pulses, normal rate, regular rhythm Respiratory/Chest: chest wall non-tender, lungs clear, normal breath sounds Abdomen: normal bowel sounds, non tender, soft Extremities: normal inspection Edema: no edema noted Arm (L), no edema noted Arm (R), no edema noted Leg (L), no edema noted Leg (R), no edema noted Pedal (L), no edema noted Pedal (R), no edema noted Generalized Neurologic: motor weakness Skin: normal pigmentation, warm/dry TERE GILES February 19, 2017 08:33
[2017-02-19] MEDS: ARIPiprazole 10mg tab NG SCH (08:53)
[2017-02-19] MEDS: Valproic Acid 250mg/5ml Liquid GT SCH ×2 (08:53→21:15)
[2017-02-19] MEDS: Rifaximin 550mg tab NG SCH ×2 (08:53→21:15)
[2017-02-19 08:59] LABS: ALBUMIN/GLOBULIN RATIO 0.3 (1.0-2.7); CALCIUM 8.6 mg/dL (8.6-10.2); CREATININE 1.2 mg/dL (0.5-0.9); MAGNESIUM 2.2 mg/dL (1.7-2.5); PHOSPHORUS 3.7 mg/dL (2.5-4.8); TOTAL PROTEIN 7.3 g/dL (6.6-8.7)
[2017-02-19 09:17] LABS: BILIRUBIN,DIRECT 0.5 mg/dL (0.1-0.3)
[2017-02-19 11:42] LABS: BAND NEUTROPHILS % (MANUAL) 0 % (0-8); BASOPHILS % (MANUAL) 1 % (0-2); EOSINOPHILS % (MANUAL) 3 % (0-3); LYMPHOCYTES % (MANUAL) 22 % (20-45); NEUTROPHILS % (MANUAL) 68 % (45-75); PLATELET ESTIMATE DECREASED; TOTAL CELLS COUNTED 100
[2017-02-19 11:43] LABS: ANISOCYTOSIS 1+; HYPOCHROMASIA 2+; PLATELET MORPHOLOGY NORMAL
[2017-02-19 12:00] VITALS: BP 123/63
--- NOTE | 2017-02-19 14:31 | Infectious Diseases Prog Note ---
Assessment/Plan Problems: (1) Candiduria Assessment & Plan: continue fluconazol for two weeks, had renal US recently didn't show any stones, laguerre catheter was changed , D/W nurse (2) Hypotension Assessment & Plan: no evidence of sepsis, repeated blood culture is negative so far , will discontinue vancomycin and aztreonam . (3) UTI (urinary tract infection) Assessment & Plan: due to methicillin sensitive staph aureus, received vancomycin for 7 days , will d/c today (4) Encephalopathy, multifactorial, hepatic/septic/renal Assessment & Plan: had elevated ammonia level, continue lactulose, neurology is following (5) Liver cirrhosis Assessment & Plan: with negative hepatitis panel, continue supportive care, avoid hepatotoxic meds, consult GI Subjective ROS Limited/Unobtainable: Yes Allergies: Coded Allergies: PENICILLINS (Verified Allergy, Unknown, 02/10/17) Subjective she was alert , but confused, mildly agitated, open eyes spontaneously, not in distress . afebrile, dosen't follow commands Objective Vital Signs Last 24 Hour Vital Signs Date Time Temp Pulse Resp B/P Pulse Ox O2 Delivery O2 Flow Rate FiO2 02/19/17 12:00 89 02/19/17 12:00 97.2 78 17 123/63 97 Nasal Cannula 3.0 02/19/17 08:00 96.1 80 18 122/88 97 Nasal Cannula 3.0 02/19/17 08:00 74 02/19/17 04:00 80 02/19/17 04:00 96.8 85 18 132/70 96 Nasal Cannula 2.0 02/19/17 00:00 103 02/19/17 00:00 96.8 94 16 120/85 95 Nasal Cannula 2.0 02/18/17 20:00 86 02/18/17 20:00 97.3 89 18 150/64 98 Nasal Cannula 2.0 02/18/17 18:00 98.2 90 18 135/65 98 Nasal Cannula 3.0 02/18/17 17:00 98.3 91 18 142/60 98 Nasal Cannula 3.0 02/18/17 16:00 82 02/18/17 16:00 98.2 86 20 140/53 98 Nasal Cannula 3.0 Height (Feet): 5 Height (Inches): 6.00 Weight (Pounds): 130 General Appearance: WD/WN, no acute distress HEENT: normocephalic, atraumatic, anicteric, mucous membranes moist Respiratory/Chest: chest wall non-tender, lungs clear, normal breath sounds, no respiratory distress, no accessory muscle use Cardiovascular: normal peripheral pulses, normal rate, regular rhythm, no gallop/murmur, no JVD Abdomen: normal bowel sounds, soft, non tender, no organomegaly, non distended , no mass Extremities: no cyanosis, no clubbing Skin: no rash, no lesions Microbiology Date/Time Source Procedure Growth Status 02/16/17 16:00 Blood Blood Culture - Preliminary NO GROWTH AFTER 48 HOURS Resulted 02/16/17 15:45 Blood Blood Culture - Preliminary NO GROWTH AFTER 48 HOURS Resulted 02/16/17 15:30 Indwelling Cath Urine Culture - Final Rubina Albicans Complete Laboratory Tests Test 02/19/17 07:48 White Blood Count 3.5 K/UL (4.8-10.8) L Red Blood Count 2.92 M/UL (4.20-5.40) L Hemoglobin 9.5 G/DL (12.0-16.0) L Hematocrit 28.3 % (37.0-47.0) L Mean Corpuscular Volume 97 FL (80-99) Mean Corpuscular Hemoglobin 32.6 PG (27.0-31.0) H Mean Corpuscular Hemoglobin Concent 33.6 G/DL (32.0-36.0) Red Cell Distribution Width 15.4 % (11.6-14.8) H Platelet Count 37 K/UL (150-450) L Mean Platelet Volume 10.5 FL (6.5-10.1) H Neutrophils (%) (Auto) % (45.0-75.0) Lymphocytes (%) (Auto) % (20.0-45.0) Monocytes (%) (Auto) % (1.0-10.0) Eosinophils (%) (Auto) % (0.0-3.0) Basophils (%) (Auto) % (0.0-2.0) Differential Total Cells Counted 100 Neutrophils % (Manual) 68 % (45-75) Lymphocytes % (Manual) 22 % (20-45) Monocytes % (Manual) 6 % (1-10) Eosinophils % (Manual) 3 % (0-3) Basophils % (Manual) 1 % (0-2) Band Neutrophils 0 % (0-8) Platelet Estimate Decreased L Platelet Morphology Normal Hypochromasia 2+ Anisocytosis 1+ Sodium Level 142 mEQ/L (135-145) Potassium Level 5.0 mEQ/L (3.4-4.9) H Chloride Level 107 mEQ/L (98-107) Carbon Dioxide Level 20 mEQ/L (20-30) Anion Gap 15 (5-15) Blood Urea Nitrogen 25 mg/dL (7-23) H Creatinine 1.2 mg/dL (0.5-0.9) H Estimat Glomerular Filtration Rate 47.0 mL/min (>60) Glucose Level 121 mg/dL (74-106) H Calcium Level 8.6 mg/dL (8.6-10.2) Phosphorus Level 3.7 mg/dL (2.5-4.8) Magnesium Level 2.2 mg/dL (1.7-2.5) Total Bilirubin 1.2 mg/dL (0.0-1.2) Direct Bilirubin 0.5 mg/dL (0.1-0.3) H Aspartate Amino Transf (AST/SGOT) 48 U/L (5-40) H Alanine Aminotransferase (ALT/SGPT) 18 U/L (3-33) Alkaline Phosphatase 134 U/L (35-104) H Total Protein 7.3 g/dL (6.6-8.7) Albumin 1.7 g/dL (3.5-5.2) L Globulin 5.6 g/dL Albumin/Globulin Ratio 0.3 (1.0-2.7) L Random Vancomycin Level 15.0 ug/mL Current Medications Medications (Trade) Dose Ordered Sig/Gill Route PRN Reason Start Time Stop Time Status Last Admin Dose Admin Al Hydroxide/Mg Hydroxide (Mylanta II) 30 ml Q6H PRN NG dyspepsia 02/18/17 14:00 03/20/17 13:59 Aripiprazole (Abilify) 10 mg DAILY NG 02/19/17 09:00 03/21/17 08:59 02/19/17 08:53 Dextrose (Dextrose 50%) STAT PRN IV Hypoglycemia 02/18/17 13:00 03/20/17 12:59 Fluconazole/ Sodium Chloride (Diflucan 200mg/ 100ml Premix) 100 ml @ 100 mls/hr Q24H IV 02/19/17 13:00 02/26/17 12:59 02/19/17 12:13 Lactulose (Cephulac) 30 gm EVERY 8 HOURS NG 02/18/17 14:00 03/20/17 13:59 02/19/17 14:07 Lansoprazole (Prevacid) 30 mg ACBREAKFAST NG 02/19/17 06:30 03/21/17 06:29 02/19/17 06:18 Morphine Sulfate (Morphine Sulfate) 2 mg Q4H PRN IVP SEVERE PAIN 02/18/17 13:00 02/25/17 12:59 Ondansetron HCl (Zofran) 4 mg Q6H PRN IVP Nausea & Vomiting 02/18/17 14:00 03/20/17 13:59 Quetiapine Fumarate (SEROquel) 100 mg QHS NG 02/18/17 21:00 03/20/17 20:59 02/18/17 21:29 Rifaximin (Xifaxan) 550 mg EVERY 12 HOURS NG 02/18/17 21:00 02/25/17 20:59 02/19/17 08:53 Sodium Chloride (0.45% NS 1000ml) 1,000 ml @ 50 mls/hr Q20H IV 02/18/17 17:00 03/20/17 16:59 02/19/17 12:13 Valproic Acid 500 mg 500 mg Q12HR GT 02/18/17 21:00 03/20/17 20:59 02/19/17 08:53 Pura Klein M.D. February 19, 2017 14:31
[2017-02-19] MEDS ORDERED: Sterile Water Irrig 1000ml IRRIG ONE (15:56)
[2017-02-19] MEDS ORDERED: Tubing IV Secondary IV ONE ×2 (15:56→16:21)
[2017-02-19] MEDS ORDERED: 1/2 NS 1000ml IV ONE ×2 (15:56→16:21)
[2017-02-19 16:00] VITALS: BP 120/60
[2017-02-19 20:00] VITALS: BP 129/73
[2017-02-19] MEDS ORDERED: LORazepam Inj 2mg/ml 1ml IV PRN (20:45)
--- NOTE | 2017-02-19 22:12 | Pulmonology Progress Note ---
Assessment/Plan Problems: (1) Encephalopathy (2) Liver cirrhosis (3) UTI (urinary tract infection) (4) Encephalopathy, multifactorial, hepatic/septic/renal (5) Psychiatric disorder Assessment/Plan still agitated Haldol prn continue IV fluids f/u electrolytes keep in teli. Subjective ROS Limited/Unobtainable: Yes Interval Events: sedated or agitated Allergies: Coded Allergies: PENICILLINS (Verified Allergy, Unknown, 02/10/17) Objective Last 24 Hour Vital Signs Date Time Temp Pulse Resp B/P Pulse Ox O2 Delivery O2 Flow Rate FiO2 02/19/17 20:00 96.6 77 20 129/73 96 Nasal Cannula 2.0 02/19/17 16:00 75 02/19/17 16:00 97.4 80 17 120/60 97 Room Air 02/19/17 12:00 89 02/19/17 12:00 97.2 78 17 123/63 97 Nasal Cannula 3.0 02/19/17 08:00 96.1 80 18 122/88 97 Nasal Cannula 3.0 02/19/17 08:00 74 02/19/17 04:00 80 02/19/17 04:00 96.8 85 18 132/70 96 Nasal Cannula 2.0 02/19/17 00:00 103 02/19/17 00:00 96.8 94 16 120/85 95 Nasal Cannula 2.0 Intake and Output 02/18/17 02/19/17 19:00 07:00 Intake Total 1745.708 ml 1275 ml Output Total 660 ml 1275 ml Balance 1085.708 ml 0 ml Free Water 300 ml 200 ml IV Total 1085.708 ml 655 ml Tube Feeding 360 ml 360 ml Other 60 ml Output Urine Total 660 ml 1275 ml General Appearance: WD/WN HEENT: normocephalic, atraumatic Respiratory/Chest: chest wall non-tender, lungs clear Cardiovascular: normal peripheral pulses, normal rate Abdomen: normal bowel sounds, soft, non tender Genitourinary: normal external genitalia Laboratory Tests 02/19/17 07:48: White Blood Count 3.5L, Red Blood Count 2.92L, Hemoglobin 9.5L, Hematocrit 28.3L , Mean Corpuscular Volume 97, Mean Corpuscular Hemoglobin 32.6H, Mean Corpuscular Hemoglobin Concent 33.6, Red Cell Distribution Width 15.4H, Platelet Count 37L, Mean Platelet Volume 10.5H, Neutrophils (%) (Auto) , Lymphocytes (%) (Auto) , Monocytes (%) (Auto) , Eosinophils (%) (Auto) , Basophils (%) (Auto) , Differential Total Cells Counted 100, Neutrophils % ( Manual) 68, Lymphocytes % (Manual) 22, Monocytes % (Manual) 6, Eosinophils % ( Manual) 3, Basophils % (Manual) 1, Band Neutrophils 0, Platelet Estimate DecreasedL, Platelet Morphology Normal, Hypochromasia 2+, Anisocytosis 1+, Sodium Level 142, Potassium Level 5.0H, Chloride Level 107, Carbon Dioxide Level 20, Anion Gap 15, Blood Urea Nitrogen 25H, Creatinine 1.2H, Estimat Glomerular Filtration Rate 47.0, Glucose Level 121H, Calcium Level 8.6, Phosphorus Level 3.7, Magnesium Level 2.2, Total Bilirubin 1.2, Direct Bilirubin 0.5H, Aspartate Amino Transf (AST/SGOT) 48H, Alanine Aminotransferase (ALT/SGPT) 18, Alkaline Phosphatase 134H, Total Protein 7.3, Albumin 1.7L, Globulin 5.6, Albumin/Globulin Ratio 0.3L, Random Vancomycin Level 15.0 Current Medications Medications (Trade) Dose Ordered Sig/Gill Route PRN Reason Start Time Stop Time Status Last Admin Dose Admin Al Hydroxide/Mg Hydroxide (Mylanta II) 30 ml Q6H PRN NG dyspepsia 02/18/17 14:00 03/20/17 13:59 Aripiprazole (Abilify) 10 mg DAILY NG 02/19/17 09:00 03/21/17 08:59 02/19/17 08:53 Dextrose (Dextrose 50%) STAT PRN IV Hypoglycemia 02/18/17 13:00 03/20/17 12:59 Fluconazole/ Sodium Chloride (Diflucan 200mg/ 100ml Premix) 100 ml @ 100 mls/hr Q24H IV 02/19/17 13:00 02/26/17 12:59 02/19/17 12:13 Lactulose (Cephulac) 30 gm EVERY 8 HOURS NG 02/18/17 14:00 03/20/17 13:59 02/19/17 21:39 Lansoprazole (Prevacid) 30 mg ACBREAKFAST NG 02/19/17 06:30 03/21/17 06:29 02/19/17 06:18 Lorazepam (Ativan 2mg/ml 1ml) 1 mg Q4H PRN IV For Anxiety 02/19/17 20:45 02/26/17 20:44 02/19/17 21:15 Morphine Sulfate (Morphine Sulfate) 2 mg Q4H PRN IVP SEVERE PAIN 02/18/17 13:00 02/25/17 12:59 Ondansetron HCl (Zofran) 4 mg Q6H PRN IVP Nausea & Vomiting 02/18/17 14:00 03/20/17 13:59 Quetiapine Fumarate (SEROquel) 100 mg QHS NG 02/18/17 21:00 03/20/17 20:59 02/19/17 21:14 Rifaximin (Xifaxan) 550 mg EVERY 12 HOURS NG 02/18/17 21:00 02/25/17 20:59 02/19/17 21:15 Sodium Chloride (0.45% NS 1000ml) 1,000 ml @ 50 mls/hr Q20H IV 02/18/17 17:00 03/20/17 16:59 02/19/17 12:13 Valproic Acid 500 mg 500 mg Q12HR GT 02/18/17 21:00 03/20/17 20:59 02/19/17 21:15 MANFRED YING February 19, 2017 22:12
[2017-02-20] VITALS: BP 136/64
[2017-02-20 04:26] VITALS: BP 111/62
[2017-02-20] MEDS: Lactulose 20gm/30ml UDC NG SCH ×3 (06:26→21:52)
[2017-02-20 08:03] VITALS: BP 108/57
[2017-02-20 08:35] LABS: CALCIUM 8.6 mg/dL (8.6-10.2); CREATININE 1.3 mg/dL (0.5-0.9); GLOMERULAR FILTRATION RATE 42.8 mL/min (>60); POTASSIUM 4.5 mEQ/L (3.4-4.9)
[2017-02-20] MEDS: Valproic Acid 250mg/5ml Liquid GT SCH ×2 (08:48→21:53)
[2017-02-20] MEDS: Rifaximin 550mg tab NG SCH ×2 (08:48→21:52)
[2017-02-20] MEDS: ARIPiprazole 10mg tab NG SCH (08:48)
--- NOTE | 2017-02-20 08:50 | General Progress Note ---
Assessment/Plan Problem List: (1) Liver cirrhosis ICD Codes: K74.60 - Unspecified cirrhosis of liver SNOMED: 45179666 Qualifiers: Qualified Codes: K74.60 - Unspecified cirrhosis of liver (2) Encephalopathy ICD Codes: G93.40 - Encephalopathy, unspecified SNOMED: 93986445, 501229025 (3) UTI (urinary tract infection) ICD Codes: N39.0 - Urinary tract infection, site not specified SNOMED: 05426009 Qualifiers: Qualified Codes: N30.01 - Acute cystitis with hematuria (4) Psychiatric disorder ICD Codes: F99 - Mental disorder, not otherwise specified SNOMED: 36175879, 069144381 Assessment/Plan lactulose and xifaxan NGTF fu labs supportive care fu abd us Subjective ROS Limited/Unobtainable: No Allergies: Coded Allergies: PENICILLINS (Verified Allergy, Unknown, 02/10/17) Objective Last 24 Hour Vital Signs Date Time Temp Pulse Resp B/P Pulse Ox O2 Delivery O2 Flow Rate FiO2 02/20/17 08:03 96.8 80 18 108/57 95 Nasal Cannula 3.0 02/20/17 04:26 97.1 78 20 111/62 97 Nasal Cannula 2.0 02/20/17 04:00 81 02/20/17 00:00 96.8 88 20 136/64 94 Nasal Cannula 2.0 02/20/17 00:00 94 02/19/17 20:00 94 02/19/17 20:00 96.6 77 20 129/73 96 Nasal Cannula 2.0 02/19/17 16:00 75 02/19/17 16:00 97.4 80 17 120/60 97 Room Air 02/19/17 12:00 89 02/19/17 12:00 97.2 78 17 123/63 97 Nasal Cannula 3.0 Intake and Output 02/19/17 02/20/17 19:00 07:00 Intake Total 1482.300 ml 1070 ml Output Total 760 ml 1100 ml Balance 722.300 ml -30 ml Free Water 200 ml 200 ml IV Total 952.300 ml 600 ml Tube Feeding 330 ml 150 ml Other 120 ml Output Urine Total 760 ml 1100 ml # Bowel Movements 1 Laboratory Tests 02/20/17 07:12: Sodium Level 139, Potassium Level 4.5, Chloride Level 103, Carbon Dioxide Level 22, Anion Gap 14, Blood Urea Nitrogen 24H, Creatinine 1.3H, Estimat Glomerular Filtration Rate 42.8, Glucose Level 79, Calcium Level 8.6 Height (Feet): 5 Height (Inches): 6.00 Weight (Pounds): 130 General Appearance: lethargic, confused EENT: normal ENT inspection Neck: supple Cardiovascular: normal rate Respiratory/Chest: decreased breath sounds Abdomen: normal bowel sounds, non tender, soft Extremities: non-tender STACY KINSEY February 20, 2017 08:50
--- NOTE | 2017-02-20 09:11 | Cardiac Electrophysiology PN ---
Assessment/Plan Assessment/Plan 1. Hypotension, likely due to volume depletion and possible sepsis. Ruled out for NH.Resolved. 2. Sinus tachycardia due to sepsis.No fib or SVT. Heart rate is better on abx 3. Schizophrenia, on Haldol. 4. Cirrhosis of the liver, on lactulose 5. Dysphagia. NG feeding in progress.Awaiting abd US 6. Agitation. WALE RN. Subjective Subjective Sedated after Ativan as was agitated earlier. NG tube is back in. RN at bedside.Abd US pending. Objective Last 24 Hour Vital Signs Date Time Temp Pulse Resp B/P Pulse Ox O2 Delivery O2 Flow Rate FiO2 02/20/17 08:03 96.8 80 18 108/57 95 Nasal Cannula 3.0 02/20/17 04:26 97.1 78 20 111/62 97 Nasal Cannula 2.0 02/20/17 04:00 81 02/20/17 00:00 96.8 88 20 136/64 94 Nasal Cannula 2.0 02/20/17 00:00 94 02/19/17 20:00 94 02/19/17 20:00 96.6 77 20 129/73 96 Nasal Cannula 2.0 02/19/17 16:00 75 02/19/17 16:00 97.4 80 17 120/60 97 Room Air 02/19/17 12:00 89 02/19/17 12:00 97.2 78 17 123/63 97 Nasal Cannula 3.0 Intake and Output 02/19/17 02/20/17 19:00 07:00 Intake Total 1482.300 ml 1070 ml Output Total 760 ml 1100 ml Balance 722.300 ml -30 ml Free Water 200 ml 200 ml IV Total 952.300 ml 600 ml Tube Feeding 330 ml 150 ml Other 120 ml Output Urine Total 760 ml 1100 ml # Bowel Movements 1 Laboratory Tests Test 02/20/17 07:12 Sodium Level 139 mEQ/L (135-145) Potassium Level 4.5 mEQ/L (3.4-4.9) Chloride Level 103 mEQ/L (98-107) Carbon Dioxide Level 22 mEQ/L (20-30) Anion Gap 14 (5-15) Blood Urea Nitrogen 24 mg/dL (7-23) H Creatinine 1.3 mg/dL (0.5-0.9) H Estimat Glomerular Filtration Rate 42.8 mL/min (>60) Glucose Level 79 mg/dL (74-106) Calcium Level 8.6 mg/dL (8.6-10.2) Objective HEAD AND NECK: No JVD.NG tube is in. LUNGS: Clear. CARDIOVASCULAR: Regular S1 and S2 with no gallop or murmur. ABDOMEN: Abdomen is soft. EXTREMITIES: 1+ pitting edema. ELIUD LALA February 20, 2017 09:11
[2017-02-20] MEDS ORDERED: Sterile Water For Irrig 2000ml IRRIG ONE (09:23)
[2017-02-20] MEDS ORDERED: 1/2 NS 1000ml IV ONE (09:23)
--- NOTE | 2017-02-20 09:42 | General Progress Note ---
Assessment/Plan Problem List: (1) Liver cirrhosis ICD Codes: K74.60 - Unspecified cirrhosis of liver SNOMED: 13526599 Qualifiers: Qualified Codes: K74.60 - Unspecified cirrhosis of liver (2) Encephalopathy ICD Codes: G93.40 - Encephalopathy, unspecified SNOMED: 20800661, 697113490 (3) UTI (urinary tract infection) ICD Codes: N39.0 - Urinary tract infection, site not specified SNOMED: 34524744 Qualifiers: Qualified Codes: N30.01 - Acute cystitis with hematuria (4) Encephalopathy, multifactorial, hepatic/septic/renal (5) Altered mental state ICD Codes: R41.82 - Altered mental status, unspecified SNOMED: 623658971, 055995156 Qualifiers: Qualified Codes: R41.82 - Altered mental status, unspecified (6) Severe malnutrition ICD Codes: E43 - Unspecified severe protein-calorie malnutrition SNOMED: 63640597 (7) Psychiatric disorder ICD Codes: F99 - Mental disorder, not otherwise specified SNOMED: 89561732, 351755400 Status: unchanged Assessment/Plan ot pt diet ivf psyc neuro gi tx cbc bmp am promise ltach transfer Subjective Constitutional: Reports: weakness Allergies: Coded Allergies: PENICILLINS (Verified Allergy, Unknown, 02/10/17) All Systems: reviewed and negative except above Subjective 02nc ng sleepy Objective Last 24 Hour Vital Signs Date Time Temp Pulse Resp B/P Pulse Ox O2 Delivery O2 Flow Rate FiO2 02/20/17 08:03 96.8 80 18 108/57 95 Nasal Cannula 3.0 02/20/17 08:00 80 02/20/17 04:26 97.1 78 20 111/62 97 Nasal Cannula 2.0 02/20/17 04:00 81 02/20/17 00:00 96.8 88 20 136/64 94 Nasal Cannula 2.0 02/20/17 00:00 94 02/19/17 20:00 94 02/19/17 20:00 96.6 77 20 129/73 96 Nasal Cannula 2.0 02/19/17 16:00 75 02/19/17 16:00 97.4 80 17 120/60 97 Room Air 02/19/17 12:00 89 02/19/17 12:00 97.2 78 17 123/63 97 Nasal Cannula 3.0 Intake and Output 02/19/17 02/20/17 19:00 07:00 Intake Total 1482.300 ml 1070 ml Output Total 760 ml 1100 ml Balance 722.300 ml -30 ml Free Water 200 ml 200 ml IV Total 952.300 ml 600 ml Tube Feeding 330 ml 150 ml Other 120 ml Output Urine Total 760 ml 1100 ml # Bowel Movements 1 Laboratory Tests 02/20/17 07:12: Sodium Level 139, Potassium Level 4.5, Chloride Level 103, Carbon Dioxide Level 22, Anion Gap 14, Blood Urea Nitrogen 24H, Creatinine 1.3H, Estimat Glomerular Filtration Rate 42.8, Glucose Level 79, Calcium Level 8.6 Height (Feet): 5 Height (Inches): 6.00 Weight (Pounds): 130 General Appearance: lethargic EENT: normal ENT inspection Neck: normal alignment Cardiovascular: normal peripheral pulses, normal rate, regular rhythm Respiratory/Chest: chest wall non-tender, lungs clear, normal breath sounds Abdomen: normal bowel sounds, non tender, soft Extremities: normal inspection Edema: no edema noted Arm (L), no edema noted Arm (R), no edema noted Leg (L), no edema noted Leg (R), no edema noted Pedal (L), no edema noted Pedal (R), no edema noted Generalized Neurologic: motor weakness Skin: normal pigmentation, warm/dry TERE GILES February 20, 2017 09:42
[2017-02-20 10:13] LABS: MEAN CORPUSCULAR HEMOGLOBIN 32.3 PG (27.0-31.0); MEAN CORPUSCULAR HGB CONC 33.2 G/DL (32.0-36.0); MEAN CORPUSCULAR VOLUME 97 FL (80-99); PLATELET COUNT 42 K/UL (150-450); RED BLOOD COUNT 2.93 M/UL (4.20-5.40); RED CELL DISTRIBUTION WIDTH 15.7 % (11.6-14.8)
[2017-02-20 10:48] LABS: ANISOCYTOSIS 1+; BAND NEUTROPHILS % (MANUAL) 0 % (0-8); BASOPHILS % (MANUAL) 0 % (0-2); EOSINOPHILS % (MANUAL) 0 % (0-3); HYPOCHROMASIA 2+; LYMPHOCYTES % (MANUAL) 11 % (20-45); NEUTROPHILS % (MANUAL) 80 % (45-75); PLATELET ESTIMATE DECREASED; PLATELET MORPHOLOGY NORMAL; SPHEROCYTES 1+; TOTAL CELLS COUNTED 100
[2017-02-20 12:01] VITALS: BP 111/67
--- NOTE | 2017-02-20 15:29 | Pulmonology Progress Note ---
Assessment/Plan Problems: (1) Encephalopathy (2) Liver cirrhosis (3) UTI (urinary tract infection) (4) Encephalopathy, multifactorial, hepatic/septic/renal (5) Psychiatric disorder Assessment/Plan tolerating feeding vital signs more stable Haldol prn continue IV fluids f/u electrolytes med/surg all notes and labs reviewed Subjective ROS Limited/Unobtainable: No Interval Events: was awake earlier, sitting on the chair Allergies: Coded Allergies: PENICILLINS (Verified Allergy, Unknown, 02/10/17) Objective Last 24 Hour Vital Signs Date Time Temp Pulse Resp B/P Pulse Ox O2 Delivery O2 Flow Rate FiO2 02/20/17 12:01 97.1 78 20 111/67 96 Room Air 3.0 02/20/17 12:00 77 02/20/17 08:03 96.8 80 18 108/57 95 Nasal Cannula 3.0 02/20/17 08:00 80 02/20/17 04:26 97.1 78 20 111/62 97 Nasal Cannula 2.0 02/20/17 04:00 81 02/20/17 00:00 96.8 88 20 136/64 94 Nasal Cannula 2.0 02/20/17 00:00 94 02/19/17 20:00 94 02/19/17 20:00 96.6 77 20 129/73 96 Nasal Cannula 2.0 02/19/17 16:00 75 02/19/17 16:00 97.4 80 17 120/60 97 Room Air Intake and Output 02/19/17 02/20/17 19:00 07:00 Intake Total 1482.300 ml 1070 ml Output Total 760 ml 1100 ml Balance 722.300 ml -30 ml Free Water 200 ml 200 ml IV Total 952.300 ml 600 ml Tube Feeding 330 ml 150 ml Other 120 ml Output Urine Total 760 ml 1100 ml # Bowel Movements 1 General Appearance: cachetic HEENT: normocephalic, atraumatic Respiratory/Chest: chest wall non-tender, lungs clear Cardiovascular: normal peripheral pulses, normal rate Abdomen: normal bowel sounds, soft, non tender Genitourinary: normal external genitalia Extremities: no cyanosis Laboratory Tests 02/20/17 07:12: Sodium Level 139, Potassium Level 4.5, Chloride Level 103, Carbon Dioxide Level 22, Anion Gap 14, Blood Urea Nitrogen 24H, Creatinine 1.3H, Estimat Glomerular Filtration Rate 42.8, Glucose Level 79, Calcium Level 8.6 02/20/17 09:55: White Blood Count 4.0L, Red Blood Count 2.93L, Hemoglobin 9.5L, Hematocrit 28.5L , Mean Corpuscular Volume 97, Mean Corpuscular Hemoglobin 32.3H, Mean Corpuscular Hemoglobin Concent 33.2, Red Cell Distribution Width 15.7H, Platelet Count 42L, Mean Platelet Volume 9.0, Neutrophils (%) (Auto) , Lymphocytes (%) (Auto) , Monocytes (%) (Auto) , Eosinophils (%) (Auto) , Basophils (%) (Auto) , Differential Total Cells Counted 100, Neutrophils % ( Manual) 80H, Lymphocytes % (Manual) 11L, Monocytes % (Manual) 9, Eosinophils % ( Manual) 0, Basophils % (Manual) 0, Band Neutrophils 0, Platelet Estimate DecreasedL, Platelet Morphology Normal, Hypochromasia 2+, Anisocytosis 1+, Spherocytes 1+ Current Medications Medications (Trade) Dose Ordered Sig/Gill Route PRN Reason Start Time Stop Time Status Last Admin Dose Admin Al Hydroxide/Mg Hydroxide (Mylanta II) 30 ml Q6H PRN NG dyspepsia 02/18/17 14:00 03/20/17 13:59 Aripiprazole (Abilify) 10 mg DAILY NG 02/19/17 09:00 03/21/17 08:59 02/20/17 08:48 Dextrose (Dextrose 50%) STAT PRN IV Hypoglycemia 02/18/17 13:00 03/20/17 12:59 Fluconazole/ Sodium Chloride (Diflucan 200mg/ 100ml Premix) 100 ml @ 100 mls/hr Q24H IV 02/19/17 13:00 02/26/17 12:59 02/20/17 12:06 Lactulose (Cephulac) 30 gm EVERY 8 HOURS NG 02/18/17 14:00 03/20/17 13:59 02/20/17 13:41 Lansoprazole (Prevacid) 30 mg ACBREAKFAST NG 02/19/17 06:30 03/21/17 06:29 02/20/17 06:26 Lorazepam (Ativan 2mg/ml 1ml) 1 mg Q4H PRN IV For Anxiety 02/19/17 20:45 02/26/17 20:44 02/19/17 21:15 Morphine Sulfate (Morphine Sulfate) 2 mg Q4H PRN IVP SEVERE PAIN 02/18/17 13:00 02/25/17 12:59 Ondansetron HCl (Zofran) 4 mg Q6H PRN IVP Nausea & Vomiting 02/18/17 14:00 03/20/17 13:59 Quetiapine Fumarate (SEROquel) 100 mg QHS NG 02/18/17 21:00 03/20/17 20:59 02/19/17 21:14 Rifaximin (Xifaxan) 550 mg EVERY 12 HOURS NG 02/18/17 21:00 02/25/17 20:59 02/20/17 08:48 Sodium Chloride (0.45% NS 1000ml) 1,000 ml @ 50 mls/hr Q20H IV 02/18/17 17:00 03/20/17 16:59 02/20/17 08:49 Valproic Acid 500 mg 500 mg Q12HR GT 02/18/17 21:00 03/20/17 20:59 02/20/17 08:48 MANFRED YING February 20, 2017 15:29
[2017-02-20 16:01] VITALS: BP 110/66
[2017-02-20 20:00] VITALS: BP 130/70
[2017-02-21] VITALS: BP 126/62
[2017-02-21 04:00] VITALS: BP 112/76
[2017-02-21] MEDS ORDERED: Mylanta II UD 30ml NG PRN (04:18)
[2017-02-21] MEDS: Lactulose 20gm/30ml UDC NG SCH ×3 (05:58→21:29)
[2017-02-21 07:20] LABS: ALBUMIN/GLOBULIN RATIO 0.3 (1.0-2.7); CALCIUM 8.2 mg/dL (8.6-10.2); CREATININE 1.4 mg/dL (0.5-0.9); GLOMERULAR FILTRATION RATE 39.3 mL/min (>60); MEAN CORPUSCULAR HEMOGLOBIN 33.7 PG (27.0-31.0); MEAN CORPUSCULAR HGB CONC 34.9 G/DL (32.0-36.0); MEAN CORPUSCULAR VOLUME 97 FL (80-99); MEAN PLATELET VOLUME 8.8 FL (6.5-10.1); PLATELET COUNT 48 K/UL (150-450); RED BLOOD COUNT 2.74 M/UL (4.20-5.40); RED CELL DISTRIBUTION WIDTH 15.5 % (11.6-14.8); TOTAL PROTEIN 7.1 g/dL (6.6-8.7); WHITE BLOOD COUNT 3.6 K/UL (4.8-10.8)
[2017-02-21 07:42] LABS: BILIRUBIN,DIRECT 0.6 mg/dL (0.1-0.3)
[2017-02-21 07:55] LABS: INR 1.4 (0.9-1.1); PROTHROMBIN TIME 14.2 SEC (9.30-11.50)
[2017-02-21 08:00] VITALS: BP 126/65
[2017-02-21] MEDS: ARIPiprazole 10mg tab NG SCH (08:13)
[2017-02-21] MEDS: Rifaximin 550mg tab NG SCH ×2 (08:13→21:29)
[2017-02-21] MEDS: LORazepam Inj 2mg/ml 1ml IV PRN ×2 (08:14→13:16)
[2017-02-21] MEDS: Valproic Acid 250mg/5ml Liquid GT SCH ×2 (08:15→21:29)
[2017-02-21 09:04] LABS: EOSINOPHILS % (MANUAL) 1 % (0-3); LYMPHOCYTES % (MANUAL) 20 % (20-45); NEUTROPHILS % (MANUAL) 69 % (45-75); TOTAL CELLS COUNTED 100
[2017-02-21 09:05] LABS: ANISOCYTOSIS 1+; BAND NEUTROPHILS % (MANUAL) 0 % (0-8); BASOPHILS % (MANUAL) 0 % (0-2); HYPOCHROMASIA 1+; PLATELET ESTIMATE DECREASED; PLATELET MORPHOLOGY NORMAL
--- NOTE | 2017-02-21 11:41 | Diagnostic Imaging Report ---
Indication:Abdominal pain Technique: Grayscale and duplex Doppler imaging of the abdomen performed. Comparison: None Findings: The liver and spleen are enlarged. There is nodularity of the liver surface. The spleen is 17 cm. There are gallstones present. Suspected CBD stones are also demonstrated with CBD measuring about 11 mm. Trace ascites demonstrated. Suspected varices based on color flow images of the upper abdomen in the area of the splenic hilum and gastrohepatic ligament. Pulsatile portal venous flow noted with appropriate flow direction. The kidneys are echogenic consistent medical renal disease. There is no hydronephrosis. Impression: Cholelithiasis and evidence of choledocholithiasis with a dilated biliary ducts. Consider ERCP for further evaluation/treatment. Chronic liver disease/cirrhosis suspected with stigmata of portal hypertension including suspected varices, trace ascites and splenomegaly. Medical renal disease suspected.
[2017-02-21 12:00] VITALS: BP 109/58
--- NOTE | 2017-02-21 12:42 | GI Progress Note ---
Assessment/Plan Problems: (1) Severe malnutrition ICD Codes: E43 - Unspecified severe protein-calorie malnutrition SNOMED: 96568233 (2) Altered mental state ICD Codes: R41.82 - Altered mental status, unspecified SNOMED: 146569437, 192713549 Qualifiers: Qualified Codes: R41.82 - Altered mental status, unspecified (3) Encephalopathy, multifactorial, hepatic/septic/renal (4) Encephalopathy ICD Codes: G93.40 - Encephalopathy, unspecified SNOMED: 14667021, 895688241 (5) Liver cirrhosis ICD Codes: K74.60 - Unspecified cirrhosis of liver SNOMED: 07579607 Qualifiers: Qualified Codes: K74.60 - Unspecified cirrhosis of liver Status: unchanged Status Narrative Discussed with Dr. Gil. Assessment/Plan EGD/PEG scheduled for tomorrow. - NGTFs, NPO @ [place]. hep panel negative hypernatremia >> resolved, reduce lactulose to help Na elevated ammonia >> cont lactulose + Xifaxan OB stool negative utox negative ppi monitor LFTs fu labs Subjective Subjective limited, calm Objective Last 24 Hour Vital Signs Date Time Temp Pulse Resp B/P Pulse Ox O2 Delivery O2 Flow Rate FiO2 02/21/17 08:00 98.4 95 16 126/65 95 Nasal Cannula 2.0 02/21/17 07:16 Nasal Cannula 3.0 32 02/21/17 07:16 97 Nasal Cannula 3.0 32 02/21/17 04:00 98.2 94 20 112/76 95 Nasal Cannula 2.0 02/21/17 00:00 97.6 86 20 126/62 86 Nasal Cannula 2.0 02/20/17 20:00 103 02/20/17 20:00 96.8 85 22 130/70 95 Nasal Cannula 2.0 02/20/17 16:01 97.0 76 20 110/66 98 Nasal Cannula 2.0 02/20/17 16:00 73 Intake and Output 02/20/17 02/21/17 19:00 07:00 Intake Total 1231 ml 860 ml Output Total 1800 ml 1800 ml Balance -569 ml -940 ml Free Water 210 ml 20 ml IV Total 691 ml 450 ml Tube Feeding 270 ml 390 ml Other 60 ml Output Urine Total 1800 ml 1800 ml # Bowel Movements 2 Laboratory Tests Test 02/21/17 05:15 White Blood Count 3.6 K/UL (4.8-10.8) L Red Blood Count 2.74 M/UL (4.20-5.40) L Hemoglobin 9.2 G/DL (12.0-16.0) L Hematocrit 26.4 % (37.0-47.0) L Mean Corpuscular Volume 97 FL (80-99) Mean Corpuscular Hemoglobin 33.7 PG (27.0-31.0) H Mean Corpuscular Hemoglobin Concent 34.9 G/DL (32.0-36.0) Red Cell Distribution Width 15.5 % (11.6-14.8) H Platelet Count 48 K/UL (150-450) L Mean Platelet Volume 8.8 FL (6.5-10.1) Neutrophils (%) (Auto) % (45.0-75.0) Lymphocytes (%) (Auto) % (20.0-45.0) Monocytes (%) (Auto) % (1.0-10.0) Eosinophils (%) (Auto) % (0.0-3.0) Basophils (%) (Auto) % (0.0-2.0) Differential Total Cells Counted 100 Neutrophils % (Manual) 69 % (45-75) Lymphocytes % (Manual) 20 % (20-45) Monocytes % (Manual) 10 % (1-10) Eosinophils % (Manual) 1 % (0-3) Basophils % (Manual) 0 % (0-2) Band Neutrophils 0 % (0-8) Platelet Estimate Decreased L Platelet Morphology Normal Hypochromasia 1+ Anisocytosis 1+ Prothrombin Time 14.2 SEC (9.30-11.50) H Prothromb Time International Ratio 1.4 (0.9-1.1) H Activated Partial Thromboplast Time 35 SEC (23-33) H Sodium Level 142 mEQ/L (135-145) Potassium Level 4.0 mEQ/L (3.4-4.9) Chloride Level 104 mEQ/L (98-107) Carbon Dioxide Level 23 mEQ/L (20-30) Anion Gap 15 (5-15) Blood Urea Nitrogen 22 mg/dL (7-23) Creatinine 1.4 mg/dL (0.5-0.9) H Estimat Glomerular Filtration Rate 39.3 mL/min (>60) Glucose Level 100 mg/dL (74-106) Calcium Level 8.2 mg/dL (8.6-10.2) L Phosphorus Level 4.0 mg/dL (2.5-4.8) Magnesium Level 2.0 mg/dL (1.7-2.5) Total Bilirubin 1.1 mg/dL (0.0-1.2) Direct Bilirubin 0.6 mg/dL (0.1-0.3) H Aspartate Amino Transf (AST/SGOT) 32 U/L (5-40) Alanine Aminotransferase (ALT/SGPT) 15 U/L (3-33) Alkaline Phosphatase 134 U/L (35-104) H Total Protein 7.1 g/dL (6.6-8.7) Albumin 1.8 g/dL (3.5-5.2) L Globulin 5.3 g/dL Albumin/Globulin Ratio 0.3 (1.0-2.7) L Height (Feet): 5 Height (Inches): 6.00 Weight (Pounds): 130 General Appearance: no apparent distress, agitated Cardiovascular: normal rate Respiratory/Chest: normal breath sounds Abdominal Exam: other - NGT Diamond Smith N.P. February 21, 2017 12:42
--- NOTE | 2017-02-21 13:24 | General Progress Note ---
Assessment/Plan Problem List: (1) Liver cirrhosis ICD Codes: K74.60 - Unspecified cirrhosis of liver SNOMED: 91815162 Qualifiers: Qualified Codes: K74.60 - Unspecified cirrhosis of liver (2) Encephalopathy ICD Codes: G93.40 - Encephalopathy, unspecified SNOMED: 36013669, 585968042 (3) UTI (urinary tract infection) ICD Codes: N39.0 - Urinary tract infection, site not specified SNOMED: 28339361 Qualifiers: Qualified Codes: N30.01 - Acute cystitis with hematuria (4) Encephalopathy, multifactorial, hepatic/septic/renal (5) Altered mental state ICD Codes: R41.82 - Altered mental status, unspecified SNOMED: 564682764, 606938053 Qualifiers: Qualified Codes: R41.82 - Altered mental status, unspecified (6) Severe malnutrition ICD Codes: E43 - Unspecified severe protein-calorie malnutrition SNOMED: 29277000 (7) Psychiatric disorder ICD Codes: F99 - Mental disorder, not otherwise specified SNOMED: 36233811, 158280606 Status: unchanged Assessment/Plan ot pt diet ivf psyc neuro gi tx cbc bmp am gtube pending Subjective Constitutional: Reports: weakness Allergies: Coded Allergies: PENICILLINS (Verified Allergy, Unknown, 02/10/17) All Systems: reviewed and negative except above Subjective 02nc ng sleepy Objective Last 24 Hour Vital Signs Date Time Temp Pulse Resp B/P Pulse Ox O2 Delivery O2 Flow Rate FiO2 02/21/17 08:00 98.4 95 16 126/65 95 Nasal Cannula 2.0 02/21/17 07:16 Nasal Cannula 3.0 32 02/21/17 07:16 97 Nasal Cannula 3.0 32 02/21/17 04:00 98.2 94 20 112/76 95 Nasal Cannula 2.0 02/21/17 00:00 97.6 86 20 126/62 86 Nasal Cannula 2.0 02/20/17 20:00 103 02/20/17 20:00 96.8 85 22 130/70 95 Nasal Cannula 2.0 02/20/17 16:01 97.0 76 20 110/66 98 Nasal Cannula 2.0 02/20/17 16:00 73 Intake and Output 02/20/17 02/21/17 19:00 07:00 Intake Total 1231 ml 860 ml Output Total 1800 ml 1800 ml Balance -569 ml -940 ml Free Water 210 ml 20 ml IV Total 691 ml 450 ml Tube Feeding 270 ml 390 ml Other 60 ml Output Urine Total 1800 ml 1800 ml # Bowel Movements 2 Laboratory Tests 02/21/17 05:15: White Blood Count 3.6L, Red Blood Count 2.74L, Hemoglobin 9.2L, Hematocrit 26.4L , Mean Corpuscular Volume 97, Mean Corpuscular Hemoglobin 33.7H, Mean Corpuscular Hemoglobin Concent 34.9, Red Cell Distribution Width 15.5H, Platelet Count 48L, Mean Platelet Volume 8.8, Neutrophils (%) (Auto) , Lymphocytes (%) (Auto) , Monocytes (%) (Auto) , Eosinophils (%) (Auto) , Basophils (%) (Auto) , Differential Total Cells Counted 100, Neutrophils % ( Manual) 69, Lymphocytes % (Manual) 20, Monocytes % (Manual) 10, Eosinophils % ( Manual) 1, Basophils % (Manual) 0, Band Neutrophils 0, Platelet Estimate DecreasedL, Platelet Morphology Normal, Hypochromasia 1+, Anisocytosis 1+, Prothrombin Time 14.2H, Prothromb Time International Ratio 1.4H, Activated Partial Thromboplast Time 35H, Sodium Level 142, Potassium Level 4.0, Chloride Level 104, Carbon Dioxide Level 23, Anion Gap 15, Blood Urea Nitrogen 22, Creatinine 1.4H, Estimat Glomerular Filtration Rate 39.3, Glucose Level 100, Calcium Level 8.2L, Phosphorus Level 4.0, Magnesium Level 2.0, Total Bilirubin 1.1, Direct Bilirubin 0.6H, Aspartate Amino Transf (AST/SGOT) 32, Alanine Aminotransferase (ALT/SGPT) 15, Alkaline Phosphatase 134H, Total Protein 7.1, Albumin 1.8L, Globulin 5.3, Albumin/Globulin Ratio 0.3L Height (Feet): 5 Height (Inches): 6.00 Weight (Pounds): 130 General Appearance: lethargic, confused EENT: normal ENT inspection Neck: normal alignment Cardiovascular: normal peripheral pulses, normal rate, regular rhythm Respiratory/Chest: chest wall non-tender, lungs clear, normal breath sounds Abdomen: normal bowel sounds, non tender, soft Extremities: normal inspection Edema: no edema noted Arm (L), no edema noted Arm (R), no edema noted Leg (L), no edema noted Leg (R), no edema noted Pedal (L), no edema noted Pedal (R), no edema noted Generalized Neurologic: motor weakness Skin: normal pigmentation, warm/dry TERE GILES February 21, 2017 13:24
[2017-02-21] MEDS: Morphine Sulfate 2mg/ml Inj IVP PRN (14:13)
--- NOTE | 2017-02-21 15:54 | Pulmonology Progress Note ---
Assessment/Plan Problems: (1) Encephalopathy (2) Liver cirrhosis (3) UTI (urinary tract infection) (4) Encephalopathy, multifactorial, hepatic/septic/renal (5) Psychiatric disorder Assessment/Plan tolerating feeding vital signs more stable Haldol prn continue IV fluids f/u electrolytes med/surg all notes and labs reviewed called brother and left a message to talk about plan of care Subjective ROS Limited/Unobtainable: No Interval Events: sedated Allergies: Coded Allergies: PENICILLINS (Verified Allergy, Unknown, 02/10/17) Objective Last 24 Hour Vital Signs Date Time Temp Pulse Resp B/P Pulse Ox O2 Delivery O2 Flow Rate FiO2 02/21/17 12:00 97.5 88 18 109/58 92 Nasal Cannula 2.0 02/21/17 08:00 98.4 95 16 126/65 95 Nasal Cannula 2.0 02/21/17 07:16 Nasal Cannula 3.0 32 02/21/17 07:16 97 Nasal Cannula 3.0 32 02/21/17 04:00 98.2 94 20 112/76 95 Nasal Cannula 2.0 02/21/17 00:00 97.6 86 20 126/62 86 Nasal Cannula 2.0 02/20/17 20:00 103 02/20/17 20:00 96.8 85 22 130/70 95 Nasal Cannula 2.0 02/20/17 16:01 97.0 76 20 110/66 98 Nasal Cannula 2.0 02/20/17 16:00 73 Intake and Output 02/20/17 02/21/17 19:00 07:00 Intake Total 1231 ml 860 ml Output Total 1800 ml 1800 ml Balance -569 ml -940 ml Free Water 210 ml 20 ml IV Total 691 ml 450 ml Tube Feeding 270 ml 390 ml Other 60 ml Output Urine Total 1800 ml 1800 ml # Bowel Movements 2 Objective General Appearance: cachetic HEENT: normocephalic, atraumatic Respiratory/Chest: chest wall non-tender, lungs clear Cardiovascular: normal peripheral pulses, normal rate Abdomen: normal bowel sounds, soft, non tender Genitourinary: normal external genitalia Extremities: no cyanosis General Appearance: cachetic Laboratory Tests 02/21/17 05:15: White Blood Count 3.6L, Red Blood Count 2.74L, Hemoglobin 9.2L, Hematocrit 26.4L , Mean Corpuscular Volume 97, Mean Corpuscular Hemoglobin 33.7H, Mean Corpuscular Hemoglobin Concent 34.9, Red Cell Distribution Width 15.5H, Platelet Count 48L, Mean Platelet Volume 8.8, Neutrophils (%) (Auto) , Lymphocytes (%) (Auto) , Monocytes (%) (Auto) , Eosinophils (%) (Auto) , Basophils (%) (Auto) , Differential Total Cells Counted 100, Neutrophils % ( Manual) 69, Lymphocytes % (Manual) 20, Monocytes % (Manual) 10, Eosinophils % ( Manual) 1, Basophils % (Manual) 0, Band Neutrophils 0, Platelet Estimate DecreasedL, Platelet Morphology Normal, Hypochromasia 1+, Anisocytosis 1+, Prothrombin Time 14.2H, Prothromb Time International Ratio 1.4H, Activated Partial Thromboplast Time 35H, Sodium Level 142, Potassium Level 4.0, Chloride Level 104, Carbon Dioxide Level 23, Anion Gap 15, Blood Urea Nitrogen 22, Creatinine 1.4H, Estimat Glomerular Filtration Rate 39.3, Glucose Level 100, Calcium Level 8.2L, Phosphorus Level 4.0, Magnesium Level 2.0, Total Bilirubin 1.1, Direct Bilirubin 0.6H, Aspartate Amino Transf (AST/SGOT) 32, Alanine Aminotransferase (ALT/SGPT) 15, Alkaline Phosphatase 134H, Total Protein 7.1, Albumin 1.8L, Globulin 5.3, Albumin/Globulin Ratio 0.3L Current Medications Medications (Trade) Dose Ordered Sig/Igll Route PRN Reason Start Time Stop Time Status Last Admin Dose Admin Al Hydroxide/Mg Hydroxide (Mylanta II) 30 ml Q6H PRN NG dyspepsia 02/21/17 04:18 03/23/17 04:17 Aripiprazole (Abilify) 10 mg DAILY NG 02/21/17 09:00 03/23/17 08:59 02/21/17 08:13 Ciprofloxacin (Cipro 400mg/ 200ml premix bag) 200 ml @ 200 mls/hr ONCE ONCE IV 02/22/17 08:00 02/22/17 08:59 Dextrose (Dextrose 50%) STAT PRN IV Hypoglycemia 02/21/17 04:19 03/23/17 04:18 Fluconazole/ Sodium Chloride (Diflucan 200mg/ 100ml Premix) 100 ml @ 100 mls/hr Q24H IV 02/21/17 13:00 02/28/17 12:59 02/21/17 13:15 Lactulose (Cephulac) 30 gm EVERY 8 HOURS NG 02/21/17 06:00 03/23/17 05:59 02/21/17 13:16 Lansoprazole (Prevacid) 30 mg ACBREAKFAST NG 02/21/17 06:30 03/23/17 06:29 02/21/17 05:55 Lorazepam (Ativan 2mg/ml 1ml) 1 mg Q4H PRN IV For Anxiety 02/21/17 04:20 02/28/17 04:19 02/21/17 13:16 Morphine Sulfate (Morphine Sulfate) 2 mg Q4H PRN IVP SEVERE PAIN 02/21/17 04:20 02/28/17 04:19 02/21/17 14:13 Ondansetron HCl (Zofran) 4 mg Q6H PRN IVP Nausea & Vomiting 02/21/17 04:20 03/23/17 04:19 Quetiapine Fumarate (SEROquel) 100 mg QHS NG 02/21/17 21:00 03/23/17 20:59 Rifaximin (Xifaxan) 550 mg EVERY 12 HOURS NG 02/21/17 09:00 02/28/17 08:59 02/21/17 08:13 Sodium Chloride 1,000 ml @ 50 mls/hr Q20H IV 02/21/17 04:00 03/23/17 03:59 02/21/17 04:46 Valproic Acid 500 mg 500 mg Q12HR GT 02/21/17 09:00 03/23/17 08:59 02/21/17 08:15 MANFRED YING February 21, 2017 15:54
[2017-02-21 16:00] VITALS: BP 94/56
--- NOTE | 2017-02-21 16:29 | Infectious Diseases Prog Note ---
Assessment/Plan Problems: (1) Candiduria Assessment & Plan: will treat with fluconazol for two weeks, had renal US recently didn't show any stones as a source , laguerre catheter was changed , D/W nurse (2) Hypotension Assessment & Plan: resolved, no evidence of sepsis, repeated blood culture is negative , monitor off antibiotics (3) UTI (urinary tract infection) Assessment & Plan: due to methicillin sensitive staph aureus, received vancomycin for 7 days (4) Encephalopathy, multifactorial, hepatic/septic/renal Assessment & Plan: with elevated ammonia level, continue lactulose, neurology is following (5) Liver cirrhosis Assessment & Plan: with negative hepatitis panel, continue supportive care, avoid hepatotoxic meds, consult GI (6) Severe malnutrition Assessment & Plan: with dysphagia, for PEG tube today by GI Subjective ROS Limited/Unobtainable: Yes Allergies: Coded Allergies: PENICILLINS (Verified Allergy, Unknown, 02/10/17) Subjective she was confused, and agitated, open eyes spontaneously, dosent follow commands . afebrile Objective Vital Signs Last 24 Hour Vital Signs Date Time Temp Pulse Resp B/P Pulse Ox O2 Delivery O2 Flow Rate FiO2 02/21/17 12:00 97.5 88 18 109/58 92 Nasal Cannula 2.0 02/21/17 08:00 98.4 95 16 126/65 95 Nasal Cannula 2.0 02/21/17 07:16 Nasal Cannula 3.0 32 02/21/17 07:16 97 Nasal Cannula 3.0 32 02/21/17 04:00 98.2 94 20 112/76 95 Nasal Cannula 2.0 02/21/17 00:00 97.6 86 20 126/62 86 Nasal Cannula 2.0 02/20/17 20:00 103 02/20/17 20:00 96.8 85 22 130/70 95 Nasal Cannula 2.0 Height (Feet): 5 Height (Inches): 6.00 Weight (Pounds): 130 General Appearance: WD/WN, other - agitated HEENT: normocephalic, atraumatic, anicteric Respiratory/Chest: chest wall non-tender, normal breath sounds, no respiratory distress, no accessory muscle use Cardiovascular: normal peripheral pulses, normal rate, regular rhythm, no gallop/murmur, no JVD Abdomen: normal bowel sounds, soft, non tender, no organomegaly, non distended , no mass Extremities: no cyanosis, no clubbing Skin: no rash, no lesions Laboratory Tests Test 02/21/17 05:15 White Blood Count 3.6 K/UL (4.8-10.8) L Red Blood Count 2.74 M/UL (4.20-5.40) L Hemoglobin 9.2 G/DL (12.0-16.0) L Hematocrit 26.4 % (37.0-47.0) L Mean Corpuscular Volume 97 FL (80-99) Mean Corpuscular Hemoglobin 33.7 PG (27.0-31.0) H Mean Corpuscular Hemoglobin Concent 34.9 G/DL (32.0-36.0) Red Cell Distribution Width 15.5 % (11.6-14.8) H Platelet Count 48 K/UL (150-450) L Mean Platelet Volume 8.8 FL (6.5-10.1) Neutrophils (%) (Auto) % (45.0-75.0) Lymphocytes (%) (Auto) % (20.0-45.0) Monocytes (%) (Auto) % (1.0-10.0) Eosinophils (%) (Auto) % (0.0-3.0) Basophils (%) (Auto) % (0.0-2.0) Differential Total Cells Counted 100 Neutrophils % (Manual) 69 % (45-75) Lymphocytes % (Manual) 20 % (20-45) Monocytes % (Manual) 10 % (1-10) Eosinophils % (Manual) 1 % (0-3) Basophils % (Manual) 0 % (0-2) Band Neutrophils 0 % (0-8) Platelet Estimate Decreased L Platelet Morphology Normal Hypochromasia 1+ Anisocytosis 1+ Prothrombin Time 14.2 SEC (9.30-11.50) H Prothromb Time International Ratio 1.4 (0.9-1.1) H Activated Partial Thromboplast Time 35 SEC (23-33) H Sodium Level 142 mEQ/L (135-145) Potassium Level 4.0 mEQ/L (3.4-4.9) Chloride Level 104 mEQ/L (98-107) Carbon Dioxide Level 23 mEQ/L (20-30) Anion Gap 15 (5-15) Blood Urea Nitrogen 22 mg/dL (7-23) Creatinine 1.4 mg/dL (0.5-0.9) H Estimat Glomerular Filtration Rate 39.3 mL/min (>60) Glucose Level 100 mg/dL (74-106) Calcium Level 8.2 mg/dL (8.6-10.2) L Phosphorus Level 4.0 mg/dL (2.5-4.8) Magnesium Level 2.0 mg/dL (1.7-2.5) Total Bilirubin 1.1 mg/dL (0.0-1.2) Direct Bilirubin 0.6 mg/dL (0.1-0.3) H Aspartate Amino Transf (AST/SGOT) 32 U/L (5-40) Alanine Aminotransferase (ALT/SGPT) 15 U/L (3-33) Alkaline Phosphatase 134 U/L (35-104) H Total Protein 7.1 g/dL (6.6-8.7) Albumin 1.8 g/dL (3.5-5.2) L Globulin 5.3 g/dL Albumin/Globulin Ratio 0.3 (1.0-2.7) L Current Medications Medications (Trade) Dose Ordered Sig/Gill Route PRN Reason Start Time Stop Time Status Last Admin Dose Admin Al Hydroxide/Mg Hydroxide (Mylanta II) 30 ml Q6H PRN NG dyspepsia 02/21/17 04:18 03/23/17 04:17 Aripiprazole (Abilify) 10 mg DAILY NG 02/21/17 09:00 03/23/17 08:59 02/21/17 08:13 Ciprofloxacin (Cipro 400mg/ 200ml premix bag) 200 ml @ 200 mls/hr ONCE ONCE IV 02/22/17 08:00 02/22/17 08:59 Dextrose (Dextrose 50%) STAT PRN IV Hypoglycemia 02/21/17 04:19 03/23/17 04:18 Fluconazole/ Sodium Chloride (Diflucan 200mg/ 100ml Premix) 100 ml @ 100 mls/hr Q24H IV 02/21/17 13:00 02/28/17 12:59 02/21/17 13:15 Lactulose (Cephulac) 30 gm EVERY 8 HOURS NG 02/21/17 06:00 03/23/17 05:59 02/21/17 13:16 Lansoprazole (Prevacid) 30 mg ACBREAKFAST NG 02/21/17 06:30 03/23/17 06:29 02/21/17 05:55 Lorazepam (Ativan 2mg/ml 1ml) 1 mg Q4H PRN IV For Anxiety 02/21/17 04:20 02/28/17 04:19 02/21/17 13:16 Morphine Sulfate (Morphine Sulfate) 2 mg Q4H PRN IVP SEVERE PAIN 02/21/17 04:20 02/28/17 04:19 02/21/17 14:13 Ondansetron HCl (Zofran) 4 mg Q6H PRN IVP Nausea & Vomiting 02/21/17 04:20 03/23/17 04:19 Quetiapine Fumarate (SEROquel) 100 mg QHS NG 02/21/17 21:00 03/23/17 20:59 Rifaximin (Xifaxan) 550 mg EVERY 12 HOURS NG 02/21/17 09:00 02/28/17 08:59 02/21/17 08:13 Sodium Chloride 1,000 ml @ 50 mls/hr Q20H IV 02/21/17 04:00 03/23/17 03:59 02/21/17 04:46 Valproic Acid 500 mg 500 mg Q12HR GT 02/21/17 09:00 03/23/17 08:59 02/21/17 08:15 Pura Klein M.D. February 21, 2017 16:29
--- NOTE | 2017-02-21 16:45 | Cardiac Electrophysiology PN ---
Assessment/Plan Assessment/Plan 1. Hypotension, likely due to volume depletion and possible sepsis. Ruled out for [place].Resolved. 2. Sinus tachycardia due to sepsis.No fib or SVT. Better on abx 3. Schizophrenia, on Haldol. 4. Cirrhosis of the liver, on lactulose 5. Dysphagia. NG feeding in progress. PEG in am. 6. Agitation. WALE RN. Subjective Subjective Encephalopathic. In restraint. NG tube feeding is ongoing.Scheduled for PEG in am. RN at bedside. Objective Last 24 Hour Vital Signs Date Time Temp Pulse Resp B/P Pulse Ox O2 Delivery O2 Flow Rate FiO2 02/21/17 12:00 97.5 88 18 109/58 92 Nasal Cannula 2.0 02/21/17 08:00 98.4 95 16 126/65 95 Nasal Cannula 2.0 02/21/17 07:16 Nasal Cannula 3.0 32 02/21/17 07:16 97 Nasal Cannula 3.0 32 02/21/17 04:00 98.2 94 20 112/76 95 Nasal Cannula 2.0 02/21/17 00:00 97.6 86 20 126/62 86 Nasal Cannula 2.0 02/20/17 20:00 103 02/20/17 20:00 96.8 85 22 130/70 95 Nasal Cannula 2.0 Intake and Output 02/20/17 02/21/17 19:00 07:00 Intake Total 1231 ml 860 ml Output Total 1800 ml 1800 ml Balance -569 ml -940 ml Free Water 210 ml 20 ml IV Total 691 ml 450 ml Tube Feeding 270 ml 390 ml Other 60 ml Output Urine Total 1800 ml 1800 ml # Bowel Movements 2 Laboratory Tests Test 02/21/17 05:15 White Blood Count 3.6 K/UL (4.8-10.8) L Red Blood Count 2.74 M/UL (4.20-5.40) L Hemoglobin 9.2 G/DL (12.0-16.0) L Hematocrit 26.4 % (37.0-47.0) L Mean Corpuscular Volume 97 FL (80-99) Mean Corpuscular Hemoglobin 33.7 PG (27.0-31.0) H Mean Corpuscular Hemoglobin Concent 34.9 G/DL (32.0-36.0) Red Cell Distribution Width 15.5 % (11.6-14.8) H Platelet Count 48 K/UL (150-450) L Mean Platelet Volume 8.8 FL (6.5-10.1) Neutrophils (%) (Auto) % (45.0-75.0) Lymphocytes (%) (Auto) % (20.0-45.0) Monocytes (%) (Auto) % (1.0-10.0) Eosinophils (%) (Auto) % (0.0-3.0) Basophils (%) (Auto) % (0.0-2.0) Differential Total Cells Counted 100 Neutrophils % (Manual) 69 % (45-75) Lymphocytes % (Manual) 20 % (20-45) Monocytes % (Manual) 10 % (1-10) Eosinophils % (Manual) 1 % (0-3) Basophils % (Manual) 0 % (0-2) Band Neutrophils 0 % (0-8) Platelet Estimate Decreased L Platelet Morphology Normal Hypochromasia 1+ Anisocytosis 1+ Prothrombin Time 14.2 SEC (9.30-11.50) H Prothromb Time International Ratio 1.4 (0.9-1.1) H Activated Partial Thromboplast Time 35 SEC (23-33) H Sodium Level 142 mEQ/L (135-145) Potassium Level 4.0 mEQ/L (3.4-4.9) Chloride Level 104 mEQ/L (98-107) Carbon Dioxide Level 23 mEQ/L (20-30) Anion Gap 15 (5-15) Blood Urea Nitrogen 22 mg/dL (7-23) Creatinine 1.4 mg/dL (0.5-0.9) H Estimat Glomerular Filtration Rate 39.3 mL/min (>60) Glucose Level 100 mg/dL (74-106) Calcium Level 8.2 mg/dL (8.6-10.2) L Phosphorus Level 4.0 mg/dL (2.5-4.8) Magnesium Level 2.0 mg/dL (1.7-2.5) Total Bilirubin 1.1 mg/dL (0.0-1.2) Direct Bilirubin 0.6 mg/dL (0.1-0.3) H Aspartate Amino Transf (AST/SGOT) 32 U/L (5-40) Alanine Aminotransferase (ALT/SGPT) 15 U/L (3-33) Alkaline Phosphatase 134 U/L (35-104) H Total Protein 7.1 g/dL (6.6-8.7) Albumin 1.8 g/dL (3.5-5.2) L Globulin 5.3 g/dL Albumin/Globulin Ratio 0.3 (1.0-2.7) L Objective HEAD AND NECK: No JVD.NG tube is in. LUNGS: Clear. CARDIOVASCULAR: Regular S1 and S2 with no gallop or murmur. ABDOMEN: Abdomen is soft. EXTREMITIES: 1+ pitting edema. ELIUD LALA February 21, 2017 16:45
--- NOTE | 2017-02-21 18:31 | Nephrology Progress Note ---
Assessment/Plan Problem List: (1) SHERIE (acute kidney injury) (2) Liver cirrhosis (3) UTI (urinary tract infection) (4) Encephalopathy, multifactorial, hepatic/septic/renal (5) Altered mental state (6) Psychiatric disorder Plan Monitor BUN/cr Monitor I&O Monitor lytes Monitor neuro status Continue tube feeding Abx per ID AM labs Subjective ROS Limited/Unobtainable: Yes Subjective In bed, disoriented, agitated. Objective Objective Last 24 Hour Vital Signs Date Time Temp Pulse Resp B/P Pulse Ox O2 Delivery O2 Flow Rate FiO2 02/21/17 16:00 97.9 78 18 94/56 93 Nasal Cannula 3.0 02/21/17 12:00 97.5 88 18 109/58 92 Nasal Cannula 2.0 02/21/17 08:00 98.4 95 16 126/65 95 Nasal Cannula 2.0 02/21/17 07:16 Nasal Cannula 3.0 32 02/21/17 07:16 97 Nasal Cannula 3.0 32 02/21/17 04:00 98.2 94 20 112/76 95 Nasal Cannula 2.0 02/21/17 00:00 97.6 86 20 126/62 86 Nasal Cannula 2.0 02/20/17 20:00 103 02/20/17 20:00 96.8 85 22 130/70 95 Nasal Cannula 2.0 Intake and Output 02/20/17 02/21/17 19:00 07:00 Intake Total 1231 ml 1010 ml Output Total 1800 ml 1800 ml Balance -569 ml -790 ml Free Water 210 ml 20 ml IV Total 691 ml 600 ml Tube Feeding 270 ml 390 ml Other 60 ml Output Urine Total 1800 ml 1800 ml # Bowel Movements 2 Laboratory Tests 02/21/17 05:15: White Blood Count 3.6L, Red Blood Count 2.74L, Hemoglobin 9.2L, Hematocrit 26.4L , Mean Corpuscular Volume 97, Mean Corpuscular Hemoglobin 33.7H, Mean Corpuscular Hemoglobin Concent 34.9, Red Cell Distribution Width 15.5H, Platelet Count 48L, Mean Platelet Volume 8.8, Neutrophils (%) (Auto) , Lymphocytes (%) (Auto) , Monocytes (%) (Auto) , Eosinophils (%) (Auto) , Basophils (%) (Auto) , Differential Total Cells Counted 100, Neutrophils % ( Manual) 69, Lymphocytes % (Manual) 20, Monocytes % (Manual) 10, Eosinophils % ( Manual) 1, Basophils % (Manual) 0, Band Neutrophils 0, Platelet Estimate DecreasedL, Platelet Morphology Normal, Hypochromasia 1+, Anisocytosis 1+, Prothrombin Time 14.2H, Prothromb Time International Ratio 1.4H, Activated Partial Thromboplast Time 35H, Sodium Level 142, Potassium Level 4.0, Chloride Level 104, Carbon Dioxide Level 23, Anion Gap 15, Blood Urea Nitrogen 22, Creatinine 1.4H, Estimat Glomerular Filtration Rate 39.3, Glucose Level 100, Calcium Level 8.2L, Phosphorus Level 4.0, Magnesium Level 2.0, Total Bilirubin 1.1, Direct Bilirubin 0.6H, Aspartate Amino Transf (AST/SGOT) 32, Alanine Aminotransferase (ALT/SGPT) 15, Alkaline Phosphatase 134H, Total Protein 7.1, Albumin 1.8L, Globulin 5.3, Albumin/Globulin Ratio 0.3L Height (Feet): 5 Height (Inches): 6.00 Weight (Pounds): 130 General Appearance: no apparent distress, agitated EENT: normal ENT inspection Neck: normal inspection Cardiovascular: normal rate, regular rhythm Respiratory/Chest: normal breath sounds, no respiratory distress Abdomen: soft, no organomegaly, no mass Extremities: normal inspection Neurologic: disoriented Madeline Fischer N.P. February 21, 2017 18:31
[2017-02-21 20:00] VITALS: BP 98/60
[2017-02-21] MEDS ORDERED: Sterile Water Irrig 1000ml IRRIG ONE (21:29)
[2017-02-21] MEDS ORDERED: 1/2 NS 1000ml IV ONE (21:29)
[2017-02-22] VITALS (12 sets, daily range): BP systolic 91–127; BP diastolic 52–82
[2017-02-22] MEDS: Lactulose 20gm/30ml UDC NG SCH ×3 (06:00→21:21)
[2017-02-22 07:06] LABS: INR 1.4 (0.9-1.1); PROTHROMBIN TIME 14.4 SEC (9.30-11.50)
[2017-02-22 07:10] LABS: MEAN CORPUSCULAR HEMOGLOBIN 32.8 PG (27.0-31.0); MEAN CORPUSCULAR HGB CONC 33.5 G/DL (32.0-36.0); MEAN CORPUSCULAR VOLUME 98 FL (80-99); MEAN PLATELET VOLUME 9.8 FL (6.5-10.1); PLATELET COUNT 38 K/UL (150-450); RED BLOOD COUNT 2.67 M/UL (4.20-5.40); RED CELL DISTRIBUTION WIDTH 16.1 % (11.6-14.8); WHITE BLOOD COUNT 3.5 K/UL (4.8-10.8)
[2017-02-22 07:40] LABS: CALCIUM 8.3 mg/dL (8.6-10.2); CREATININE 1.5 mg/dL (0.5-0.9); GLOMERULAR FILTRATION RATE 36.4 mL/min (>60); POTASSIUM 3.9 mEQ/L (3.4-4.9)
[2017-02-22] MEDS ORDERED: cefOXitin Sod 1 GM in D5W 55 ML IV ONE (08:00)
[2017-02-22] MEDS ORDERED: NS 550ML IV ONE (08:05)
--- NOTE | 2017-02-22 08:07 | Pre-Procedure Note/Attestation ---
Pre-Procedure Note/Attestation Complete Prior to Procedure Planned Procedure: not applicable Procedure Narrative: egd/peg Indications for Procedure Pre-Operative Diagnosis: dysphagia Attestation I attest that I discussed the nature of the procedure; its benefits; risks and complications; and alternatives (and the risks and benefits of such alternatives ), prior to the procedure, with the patient (or the patient's legal representative personal service). I attest that, if there was a reasonable possibility of needing a blood transfusion, the patient (or the patient's legal representative personal service) was given the [facility] standardized written summary, pursuant to the Sujit Soni Blood Safety Act ([place] Health and Safety Code # 1645, as amended). I attest that I re-evaluated the patient just prior to the surgery and that there has been no change in the patient's H&P, except as documented below: STACY KINSEY February 22, 2017 08:07
--- NOTE | 2017-02-22 08:26 | Endoscopy Procedure Note ---
Endoscopy Procedure Note Indication for Procedure: dysohagia Procedures Performed: PEG Operative Findings/Diagnosis: esoph varices Specimen: none Pt Tolerated Procedure Well: Yes Estimated Blood Loss: none Anesthesiologist: shar Anesthesia: MAC Implant(s) used?: No 50 yrs or older w/o bx or poly: Not Applicable 10yrs. F/U not recommended: Not Applicable STACY KINSEY February 22, 2017 08:26
[2017-02-22 08:41] LABS: ANISOCYTOSIS 1+; BAND NEUTROPHILS % (MANUAL) 0 % (0-8); BASOPHILS % (MANUAL) 0 % (0-2); EOSINOPHILS % (MANUAL) 3 % (0-3); HYPOCHROMASIA 2+; LYMPHOCYTES % (MANUAL) 19 % (20-45); NEUTROPHILS % (MANUAL) 66 % (45-75); PLATELET ESTIMATE DECREASED; PLATELET MORPHOLOGY NORMAL; SPHEROCYTES 2+; TOTAL CELLS COUNTED 100
--- NOTE | 2017-02-22 08:41 | Immediate Post-Op Evaluation ---
Immediate Post-Op Evalulation Immediate Post-Op Evalulation Procedure: Peg Placement Date of Evaluation: February 22, 2017 Time of Evaluation: 08:30 IV Fluids: 200 Blood Pressure Systolic: 111 Blood Pressure Diastolic: 65 Pulse Rate: 82 Respiratory Rate: 14 O2 Sat by Pulse Oximetry: 100 Temperature (Fahrenheit): 97.5 Nausea: No Vomiting: No Complications none Patient Status: awake, reacts, patent - suctioned Hydration Status: adequate Drug: none RICH FORDE CRNA February 22, 2017 08:41
--- NOTE | 2017-02-22 08:44 | Anethesia Preoperative Eval ---
Anesthesia Pre-op PMH/ROS General Date of Evaluation: February 22, 2017 Time of Evaluation: 08:43 Anesthesiologist: elba ASA Score: ASA 4 Mallampati Score Class I : Soft palate, uvula, fauces, pillars visible Class II: Soft palate, uvula, fauces visible Class III: Soft palate, base of uvula visible Class IV: Only hard plate visible Mallampati Classification: Class III Surgeon: karla Diagnosis: failure to thrive Surgical Procedure: Peg Placement Anesthesia History: none Family History: no anesthesia problems Allergies: Coded Allergies: PENICILLINS (Verified Allergy, Unknown, 02/10/17) Medications: see eMAR Past Medical History Cardiovascular: Reports: HTN Pulmonary: Reports: COPD Gastrointestinal/Genitourinary: Reports: other - liver cirrohosis; Neurologic/Psychiatric: Reports: other - hepatic encephalopathy Endocrine: Denies: DM, hypothyroidism, other, steroids Hematology/Immune: Reports: anemia, other - thrombocytopenia PMH Narrative: bipolo Anesthesia Pre-op Phys. Exam Physician Exam Last Vital Signs Date Time Temp Pulse Resp B/P Pulse Ox O2 Delivery O2 Flow Rate FiO2 02/22/17 08:00 97.5 87 20 127/82 97 Nasal Cannula 3.0 02/21/17 20:16 32 Constitutional: other - obtunded Neurologic: other - obtunded Cardiovascular: RRR Respiratory: other - ronchi through out Gastrointestinal: S/NT/ND Airway Exam Mallampati Classification 3 Mallampati Score: Class III MO: limited ROM: limited Teeth: missing Anesthesia Pre-op A/P Labs Hematology Test 02/22/17 06:00 White Blood Count 3.5 K/UL (4.8-10.8) L Red Blood Count 2.67 M/UL (4.20-5.40) L Hemoglobin 8.8 G/DL (12.0-16.0) L Hematocrit 26.2 % (37.0-47.0) L Mean Corpuscular Volume 98 FL (80-99) Mean Corpuscular Hemoglobin 32.8 PG (27.0-31.0) H Mean Corpuscular Hemoglobin Concent 33.5 G/DL (32.0-36.0) Red Cell Distribution Width 16.1 % (11.6-14.8) H Platelet Count 38 K/UL (150-450) L Mean Platelet Volume 9.8 FL (6.5-10.1) Neutrophils (%) (Auto) % (45.0-75.0) Lymphocytes (%) (Auto) % (20.0-45.0) Monocytes (%) (Auto) % (1.0-10.0) Eosinophils (%) (Auto) % (0.0-3.0) Basophils (%) (Auto) % (0.0-2.0) Neutrophils % (Manual) Pending Lymphocytes % (Manual) Pending Platelet Estimate Pending Platelet Morphology Pending Coagulation Test 02/22/17 06:00 Prothrombin Time 14.4 SEC (9.30-11.50) H Prothromb Time International Ratio 1.4 (0.9-1.1) H Activated Partial Thromboplast Time 34 SEC (23-33) H Chemistry Test 02/22/17 06:00 Sodium Level 142 mEQ/L (135-145) Potassium Level 3.9 mEQ/L (3.4-4.9) Chloride Level 105 mEQ/L (98-107) Carbon Dioxide Level 25 mEQ/L (20-30) Anion Gap 12 (5-15) Blood Urea Nitrogen 23 mg/dL (7-23) Creatinine 1.5 mg/dL (0.5-0.9) H Estimat Glomerular Filtration Rate 36.4 mL/min (>60) Glucose Level 74 mg/dL (74-106) Calcium Level 8.3 mg/dL (8.6-10.2) L Studies Pre-op Studies: EKG - sr Risk Assessment & Plan Plan: mac Pre-Antibiotics Drug: cipro Given Within 1 Hr of Incision: Yes Time Given: 08:05 RICH FORDE CRNA February 22, 2017 08:44
--- NOTE | 2017-02-22 08:45 | 48 Hour Post Anesthesia Eval ---
Post Anesthesia Evaluation Procedure: Peg Placement Date of Evaluation: February 22, 2017 Time of Evaluation: 08:44 Blood Pressure Systolic: 107 0: 60 Pulse Rate: 80 Respiratory Rate: 14 O2 Sat by Pulse Oximetry: 98 Airway: patent Nausea: No Vomiting: No Hydration Status: adequate Mental Status/LOC: patient returned to baseline Post-Anesthesia Complications: none Follow-up care needed: N/A RICH FORDE CRNA February 22, 2017 08:45
[2017-02-22] MEDS: Rifaximin 550mg tab NG SCH ×2 (09:00→21:21)
[2017-02-22] MEDS: ARIPiprazole 10mg tab NG SCH (09:00)
[2017-02-22] MEDS: Valproic Acid 250mg/5ml Liquid GT SCH ×2 (09:00→21:20)
[2017-02-22] MEDS: Propranolol 10mg tab ORAL SCH ×2 (14:00→21:21)
--- NOTE | 2017-02-22 14:19 | Pulmonology Progress Note ---
Assessment/Plan Problems: (1) Encephalopathy (2) Liver cirrhosis (3) UTI (urinary tract infection) (4) Encephalopathy, multifactorial, hepatic/septic/renal (5) Psychiatric disorder Assessment/Plan s/p peg vital signs more stable Haldol prn f/u electrolytes med/surg all notes and labs reviewed called brother and left a message to talk about plan of care dc planning Subjective ROS Limited/Unobtainable: No Interval Events: Has a PEG, Constitutional: Reports: no symptoms HEENT: Repors: no symptoms Allergies: Coded Allergies: PENICILLINS (Verified Allergy, Unknown, 02/10/17) Objective Last 24 Hour Vital Signs Date Time Temp Pulse Resp B/P Pulse Ox O2 Delivery O2 Flow Rate FiO2 02/22/17 12:00 97.2 87 20 96/52 94 Nasal Cannula 3.0 02/22/17 09:17 97.4 83 20 97/55 100 Simple Mask 5.0 02/22/17 09:00 85 20 93/53 100 Simple Mask 5.0 02/22/17 08:45 80 14 98 02/22/17 08:41 82 14 100 02/22/17 08:40 81 20 107/61 100 Simple Mask 8.0 02/22/17 08:35 83 20 111/65 100 Simple Mask 8.0 02/22/17 08:30 97.6 83 20 91/55 94 Simple Mask 8.0 02/22/17 08:05 96 Nasal Cannula 3.0 32 02/22/17 08:05 Nasal Cannula 3.0 32 02/22/17 08:00 97.5 87 20 127/82 97 Nasal Cannula 3.0 02/22/17 04:00 98.0 90 18 118/72 97 Nasal Cannula 3.0 02/22/17 00:00 98.0 84 20 110/68 Room Air 02/21/17 20:16 Nasal Cannula 3.0 32 02/21/17 20:16 95 Nasal Cannula 3.0 32 02/21/17 20:00 97.3 98 18 98/60 94 Nasal Cannula 3.0 02/21/17 16:00 97.9 78 18 94/56 93 Nasal Cannula 3.0 Intake and Output 02/21/17 02/22/17 19:00 07:00 Intake Total 1170 ml 700 ml Output Total 1125 ml 1100 ml Balance 45 ml -400 ml Free Water 60 ml IV Total 750 ml 550 ml Tube Feeding 360 ml 150 ml Output Urine Total 1125 ml 1100 ml Objective General Appearance: cachetic HEENT: normocephalic, atraumatic Respiratory/Chest: chest wall non-tender, lungs clear Cardiovascular: normal peripheral pulses, normal rate Abdomen: normal bowel sounds, soft, non tender Genitourinary: normal external genitalia Extremities: no cyanosis Laboratory Tests 02/22/17 06:00: White Blood Count 3.5L, Red Blood Count 2.67L, Hemoglobin 8.8L, Hematocrit 26.2L , Mean Corpuscular Volume 98, Mean Corpuscular Hemoglobin 32.8H, Mean Corpuscular Hemoglobin Concent 33.5, Red Cell Distribution Width 16.1H, Platelet Count 38L, Mean Platelet Volume 9.8, Neutrophils (%) (Auto) , Lymphocytes (%) (Auto) , Monocytes (%) (Auto) , Eosinophils (%) (Auto) , Basophils (%) (Auto) , Differential Total Cells Counted 100, Neutrophils % ( Manual) 66, Lymphocytes % (Manual) 19L, Monocytes % (Manual) 12H, Eosinophils % (Manual) 3, Basophils % (Manual) 0, Band Neutrophils 0, Platelet Estimate DecreasedL, Platelet Morphology Normal, Hypochromasia 2+, Anisocytosis 1+, Spherocytes 2+, Prothrombin Time 14.4H, Prothromb Time International Ratio 1.4H , Activated Partial Thromboplast Time 34H, Sodium Level 142, Potassium Level 3.9 , Chloride Level 105, Carbon Dioxide Level 25, Anion Gap 12, Blood Urea Nitrogen 23, Creatinine 1.5H, Estimat Glomerular Filtration Rate 36.4, Glucose Level 74, Calcium Level 8.3L Current Medications Medications (Trade) Dose Ordered Sig/Gill Route PRN Reason Start Time Stop Time Status Last Admin Dose Admin Al Hydroxide/Mg Hydroxide (Mylanta II) 30 ml Q6H PRN NG dyspepsia 02/21/17 04:18 03/23/17 04:17 Aripiprazole (Abilify) 10 mg DAILY NG 02/21/17 09:00 03/23/17 08:59 02/21/17 08:13 Dextrose (Dextrose 50%) STAT PRN IV Hypoglycemia 02/21/17 04:19 03/23/17 04:18 Fluconazole/ Sodium Chloride (Diflucan 200mg/ 100ml Premix) 100 ml @ 100 mls/hr Q24H IV 02/21/17 13:00 02/28/17 12:59 02/22/17 13:40 Lactulose (Cephulac) 30 gm EVERY 8 HOURS NG 02/21/17 06:00 03/23/17 05:59 02/21/17 21:29 Lansoprazole (Prevacid) 30 mg ACBREAKFAST NG 02/21/17 06:30 03/23/17 06:29 02/21/17 05:55 Lorazepam (Ativan 2mg/ml 1ml) 1 mg Q4H PRN IV For Anxiety 02/21/17 04:20 02/28/17 04:19 02/21/17 13:16 Morphine Sulfate (Morphine Sulfate) 2 mg Q4H PRN IVP SEVERE PAIN 02/21/17 04:20 02/28/17 04:19 02/21/17 14:13 Ondansetron HCl (Zofran) 4 mg Q6H PRN IVP Nausea & Vomiting 02/21/17 04:20 03/23/17 04:19 Propranolol HCl (Inderal) 10 mg Q8HR ORAL 02/22/17 14:00 03/24/17 13:59 Quetiapine Fumarate (SEROquel) 100 mg QHS NG 02/21/17 21:00 03/23/17 20:59 02/21/17 21:29 Rifaximin (Xifaxan) 550 mg EVERY 12 HOURS NG 02/21/17 09:00 02/28/17 08:59 02/21/17 21:29 Sodium Chloride 1,000 ml @ 50 mls/hr Q20H IV 02/21/17 04:00 03/23/17 03:59 02/21/17 23:41 Valproic Acid (Depakene) 500 mg Q12HR GT 02/21/17 09:00 03/23/17 08:59 02/21/17 21:29 MANFRED YING February 22, 2017 14:19
--- NOTE | 2017-02-22 14:49 | General Progress Note ---
Assessment/Plan Problem List: (1) Liver cirrhosis ICD Codes: K74.60 - Unspecified cirrhosis of liver SNOMED: 18357511 Qualifiers: Qualified Codes: K74.60 - Unspecified cirrhosis of liver (2) Encephalopathy ICD Codes: G93.40 - Encephalopathy, unspecified SNOMED: 23693866, 211913411 (3) UTI (urinary tract infection) ICD Codes: N39.0 - Urinary tract infection, site not specified SNOMED: 61692390 Qualifiers: Qualified Codes: N30.01 - Acute cystitis with hematuria (4) Encephalopathy, multifactorial, hepatic/septic/renal (5) Altered mental state ICD Codes: R41.82 - Altered mental status, unspecified SNOMED: 278021069, 035955934 Qualifiers: Qualified Codes: R41.82 - Altered mental status, unspecified (6) Severe malnutrition ICD Codes: E43 - Unspecified severe protein-calorie malnutrition SNOMED: 46632382 (7) Psychiatric disorder ICD Codes: F99 - Mental disorder, not otherwise specified SNOMED: 56683517, 618761372 Status: stable, progressing, tolerating diet Assessment/Plan ot pt diet ivf psyc neuro gi tx cbc bmp am dc plan Subjective Constitutional: Reports: weakness Allergies: Coded Allergies: PENICILLINS (Verified Allergy, Unknown, 02/10/17) All Systems: reviewed and negative except above Subjective 02nc confused Objective Last 24 Hour Vital Signs Date Time Temp Pulse Resp B/P Pulse Ox O2 Delivery O2 Flow Rate FiO2 02/22/17 14:00 87 96/52 02/22/17 12:00 97.2 87 20 96/52 94 Nasal Cannula 3.0 02/22/17 09:17 97.4 83 20 97/55 100 Simple Mask 5.0 02/22/17 09:00 85 20 93/53 100 Simple Mask 5.0 02/22/17 08:45 80 14 98 02/22/17 08:41 82 14 100 02/22/17 08:40 81 20 107/61 100 Simple Mask 8.0 02/22/17 08:35 83 20 111/65 100 Simple Mask 8.0 02/22/17 08:30 97.6 83 20 91/55 94 Simple Mask 8.0 02/22/17 08:05 96 Nasal Cannula 3.0 32 02/22/17 08:05 Nasal Cannula 3.0 32 02/22/17 08:00 97.5 87 20 127/82 97 Nasal Cannula 3.0 02/22/17 04:00 98.0 90 18 118/72 97 Nasal Cannula 3.0 02/22/17 00:00 98.0 84 20 110/68 Room Air 02/21/17 20:16 Nasal Cannula 3.0 32 02/21/17 20:16 95 Nasal Cannula 3.0 32 02/21/17 20:00 97.3 98 18 98/60 94 Nasal Cannula 3.0 02/21/17 16:00 97.9 78 18 94/56 93 Nasal Cannula 3.0 Intake and Output 02/21/17 02/22/17 19:00 07:00 Intake Total 1170 ml 700 ml Output Total 1125 ml 1100 ml Balance 45 ml -400 ml Free Water 60 ml IV Total 750 ml 550 ml Tube Feeding 360 ml 150 ml Output Urine Total 1125 ml 1100 ml Laboratory Tests 02/22/17 06:00: White Blood Count 3.5L, Red Blood Count 2.67L, Hemoglobin 8.8L, Hematocrit 26.2L , Mean Corpuscular Volume 98, Mean Corpuscular Hemoglobin 32.8H, Mean Corpuscular Hemoglobin Concent 33.5, Red Cell Distribution Width 16.1H, Platelet Count 38L, Mean Platelet Volume 9.8, Neutrophils (%) (Auto) , Lymphocytes (%) (Auto) , Monocytes (%) (Auto) , Eosinophils (%) (Auto) , Basophils (%) (Auto) , Differential Total Cells Counted 100, Neutrophils % ( Manual) 66, Lymphocytes % (Manual) 19L, Monocytes % (Manual) 12H, Eosinophils % (Manual) 3, Basophils % (Manual) 0, Band Neutrophils 0, Platelet Estimate DecreasedL, Platelet Morphology Normal, Hypochromasia 2+, Anisocytosis 1+, Spherocytes 2+, Prothrombin Time 14.4H, Prothromb Time International Ratio 1.4H , Activated Partial Thromboplast Time 34H, Sodium Level 142, Potassium Level 3.9 , Chloride Level 105, Carbon Dioxide Level 25, Anion Gap 12, Blood Urea Nitrogen 23, Creatinine 1.5H, Estimat Glomerular Filtration Rate 36.4, Glucose Level 74, Calcium Level 8.3L Height (Feet): 5 Height (Inches): 5.00 Weight (Pounds): 130 General Appearance: lethargic, confused EENT: normal ENT inspection Neck: normal alignment Cardiovascular: normal peripheral pulses, normal rate, regular rhythm Respiratory/Chest: chest wall non-tender, lungs clear, normal breath sounds Abdomen: normal bowel sounds, non tender, soft Extremities: normal inspection Edema: no edema noted Arm (L), no edema noted Arm (R), no edema noted Leg (L), no edema noted Leg (R), no edema noted Pedal (L), no edema noted Pedal (R), no edema noted Generalized Neurologic: motor weakness Skin: normal pigmentation, warm/dry TERE GILES February 22, 2017 14:49
--- NOTE | 2017-02-22 15:37 | Infectious Diseases Prog Note ---
Assessment/Plan Problems: (1) Candiduria Assessment & Plan: continue fluconazole for two weeks, had renal US recently didn't show any stones as a source , laguerre catheter was changed. (2) Hypotension Assessment & Plan: resolved, no evidence of sepsis, repeated blood culture is negative , monitor off antibiotics (3) UTI (urinary tract infection) Assessment & Plan: due to methicillin sensitive staph aureus, received vancomycin for 7 days (4) Encephalopathy, multifactorial, hepatic/septic/renal Assessment & Plan: with elevated ammonia level, continue lactulose, neurology is following (5) Liver cirrhosis Assessment & Plan: with negative hepatitis panel, continue supportive care, avoid hepatotoxic meds, consult GI (6) Severe malnutrition Assessment & Plan: with dysphagia, had PEG tube today by GI, further recommendations as per GI Subjective ROS Limited/Unobtainable: Yes Allergies: Coded Allergies: PENICILLINS (Verified Allergy, Unknown, 02/10/17) Subjective she was resting, and mildly agitated, open eyes spontaneously, dosen't follow commands . afebrile Objective Vital Signs Last 24 Hour Vital Signs Date Time Temp Pulse Resp B/P Pulse Ox O2 Delivery O2 Flow Rate FiO2 02/22/17 14:00 87 96/52 02/22/17 12:00 97.2 87 20 96/52 94 Nasal Cannula 3.0 02/22/17 09:17 97.4 83 20 97/55 100 Simple Mask 5.0 02/22/17 09:00 85 20 93/53 100 Simple Mask 5.0 02/22/17 08:45 80 14 98 02/22/17 08:41 82 14 100 02/22/17 08:40 81 20 107/61 100 Simple Mask 8.0 02/22/17 08:35 83 20 111/65 100 Simple Mask 8.0 02/22/17 08:30 97.6 83 20 91/55 94 Simple Mask 8.0 02/22/17 08:05 96 Nasal Cannula 3.0 32 02/22/17 08:05 Nasal Cannula 3.0 32 02/22/17 08:00 97.5 87 20 127/82 97 Nasal Cannula 3.0 02/22/17 04:00 98.0 90 18 118/72 97 Nasal Cannula 3.0 02/22/17 00:00 98.0 84 20 110/68 Room Air 02/21/17 20:16 Nasal Cannula 3.0 32 5/15/17 20:16 95 Nasal Cannula 3.0 32 02/21/17 20:00 97.3 98 18 98/60 94 Nasal Cannula 3.0 02/21/17 16:00 97.9 78 18 94/56 93 Nasal Cannula 3.0 Height (Feet): 5 Height (Inches): 5.00 Weight (Pounds): 130 General Appearance: WD/WN, no acute distress HEENT: normocephalic, atraumatic, anicteric, mucous membranes moist Respiratory/Chest: chest wall non-tender, lungs clear, normal breath sounds, no respiratory distress, no accessory muscle use Cardiovascular: normal peripheral pulses, normal rate, regular rhythm, no gallop/murmur Abdomen: normal bowel sounds, soft, non tender, no organomegaly, non distended , no mass Extremities: no cyanosis, no clubbing Skin: no rash, no lesions Laboratory Tests Test 02/22/17 06:00 White Blood Count 3.5 K/UL (4.8-10.8) L Red Blood Count 2.67 M/UL (4.20-5.40) L Hemoglobin 8.8 G/DL (12.0-16.0) L Hematocrit 26.2 % (37.0-47.0) L Mean Corpuscular Volume 98 FL (80-99) Mean Corpuscular Hemoglobin 32.8 PG (27.0-31.0) H Mean Corpuscular Hemoglobin Concent 33.5 G/DL (32.0-36.0) Red Cell Distribution Width 16.1 % (11.6-14.8) H Platelet Count 38 K/UL (150-450) L Mean Platelet Volume 9.8 FL (6.5-10.1) Neutrophils (%) (Auto) % (45.0-75.0) Lymphocytes (%) (Auto) % (20.0-45.0) Monocytes (%) (Auto) % (1.0-10.0) Eosinophils (%) (Auto) % (0.0-3.0) Basophils (%) (Auto) % (0.0-2.0) Differential Total Cells Counted 100 Neutrophils % (Manual) 66 % (45-75) Lymphocytes % (Manual) 19 % (20-45) L Monocytes % (Manual) 12 % (1-10) H Eosinophils % (Manual) 3 % (0-3) Basophils % (Manual) 0 % (0-2) Band Neutrophils 0 % (0-8) Platelet Estimate Decreased L Platelet Morphology Normal Hypochromasia 2+ Anisocytosis 1+ Spherocytes 2+ Prothrombin Time 14.4 SEC (9.30-11.50) H Prothromb Time International Ratio 1.4 (0.9-1.1) H Activated Partial Thromboplast Time 34 SEC (23-33) H Sodium Level 142 mEQ/L (135-145) Potassium Level 3.9 mEQ/L (3.4-4.9) Chloride Level 105 mEQ/L (98-107) Carbon Dioxide Level 25 mEQ/L (20-30) Anion Gap 12 (5-15) Blood Urea Nitrogen 23 mg/dL (7-23) Creatinine 1.5 mg/dL (0.5-0.9) H Estimat Glomerular Filtration Rate 36.4 mL/min (>60) Glucose Level 74 mg/dL (74-106) Calcium Level 8.3 mg/dL (8.6-10.2) L Current Medications Medications (Trade) Dose Ordered Sig/Gill Route PRN Reason Start Time Stop Time Status Last Admin Dose Admin Al Hydroxide/Mg Hydroxide (Mylanta II) 30 ml Q6H PRN NG dyspepsia 02/21/17 04:18 03/23/17 04:17 Aripiprazole (Abilify) 10 mg DAILY NG 02/21/17 09:00 03/23/17 08:59 02/21/17 08:13 Dextrose (Dextrose 50%) STAT PRN IV Hypoglycemia 02/21/17 04:19 03/23/17 04:18 Fluconazole/ Sodium Chloride (Diflucan 200mg/ 100ml Premix) 100 ml @ 100 mls/hr Q24H IV 02/21/17 13:00 02/28/17 12:59 02/22/17 13:40 Lactulose (Cephulac) 30 gm EVERY 8 HOURS NG 02/21/17 06:00 03/23/17 05:59 02/22/17 15:19 Lansoprazole (Prevacid) 30 mg ACBREAKFAST NG 02/21/17 06:30 03/23/17 06:29 02/21/17 05:55 Lorazepam (Ativan 2mg/ml 1ml) 1 mg Q4H PRN IV For Anxiety 02/21/17 04:20 02/28/17 04:19 02/21/17 13:16 Morphine Sulfate (Morphine Sulfate) 2 mg Q4H PRN IVP SEVERE PAIN 02/21/17 04:20 02/28/17 04:19 02/21/17 14:13 Ondansetron HCl (Zofran) 4 mg Q6H PRN IVP Nausea & Vomiting 02/21/17 04:20 03/23/17 04:19 Propranolol HCl (Inderal) 10 mg Q8HR ORAL 02/22/17 14:00 03/24/17 13:59 Quetiapine Fumarate (SEROquel) 100 mg QHS NG 02/21/17 21:00 03/23/17 20:59 02/21/17 21:29 Rifaximin (Xifaxan) 550 mg EVERY 12 HOURS NG 02/21/17 09:00 02/28/17 08:59 02/21/17 21:29 Sodium Chloride 1,000 ml @ 50 mls/hr Q20H IV 02/21/17 04:00 03/23/17 03:59 02/21/17 23:41 Valproic Acid (Depakene) 500 mg Q12HR GT 02/21/17 09:00 03/23/17 08:59 02/21/17 21:29 Pura Klein M.D. February 22, 2017 15:37
--- NOTE | 2017-02-22 17:03 | Cardiac Electrophysiology PN ---
Assessment/Plan Assessment/Plan 1. Hypotension, likely due to volume depletion and sepsis. Ruled out for MT.Resolved. 2. Sinus tachycardia due to sepsis. No fib or SVT. Better on abx and Inderal. 3. Schizophrenia, on Haldol. 4. Cirrhosis of the liver, on lactulose, Inderal and Xifaxan 5. Dysphagia. S/P PEG today. PEG feeding on hold as there was some blood in GT aspirate. Getting Platelet transfusion. 6. Agitation. WALE RN. Subjective Subjective Nonverbal. Had PEG today. In restraint. RN at bedside. Objective Last 24 Hour Vital Signs Date Time Temp Pulse Resp B/P Pulse Ox O2 Delivery O2 Flow Rate FiO2 02/22/17 14:00 87 96/52 02/22/17 12:00 97.2 87 20 96/52 94 Nasal Cannula 3.0 02/22/17 09:17 97.4 83 20 97/55 100 Simple Mask 5.0 02/22/17 09:00 85 20 93/53 100 Simple Mask 5.0 02/22/17 08:45 80 14 98 02/22/17 08:41 82 14 100 02/22/17 08:40 81 20 107/61 100 Simple Mask 8.0 02/22/17 08:35 83 20 111/65 100 Simple Mask 8.0 02/22/17 08:30 97.6 83 20 91/55 94 Simple Mask 8.0 02/22/17 08:05 96 Nasal Cannula 3.0 32 02/22/17 08:05 Nasal Cannula 3.0 32 02/22/17 08:00 97.5 87 20 127/82 97 Nasal Cannula 3.0 02/22/17 04:00 98.0 90 18 118/72 97 Nasal Cannula 3.0 02/22/17 00:00 98.0 84 20 110/68 Room Air 02/21/17 20:16 Nasal Cannula 3.0 32 02/21/17 20:16 95 Nasal Cannula 3.0 32 02/21/17 20:00 97.3 98 18 98/60 94 Nasal Cannula 3.0 Intake and Output 02/21/17 02/22/17 18:59 06:59 Intake Total 1150 ml 900 ml Output Total 1125 ml 1100 ml Balance 25 ml -200 ml Free Water 40 ml 20 ml IV Total 750 ml 700 ml Tube Feeding 360 ml 180 ml Output Urine Total 1125 ml 1100 ml Laboratory Tests Test 02/22/17 06:00 White Blood Count 3.5 K/UL (4.8-10.8) L Red Blood Count 2.67 M/UL (4.20-5.40) L Hemoglobin 8.8 G/DL (12.0-16.0) L Hematocrit 26.2 % (37.0-47.0) L Mean Corpuscular Volume 98 FL (80-99) Mean Corpuscular Hemoglobin 32.8 PG (27.0-31.0) H Mean Corpuscular Hemoglobin Concent 33.5 G/DL (32.0-36.0) Red Cell Distribution Width 16.1 % (11.6-14.8) H Platelet Count 38 K/UL (150-450) L Mean Platelet Volume 9.8 FL (6.5-10.1) Neutrophils (%) (Auto) % (45.0-75.0) Lymphocytes (%) (Auto) % (20.0-45.0) Monocytes (%) (Auto) % (1.0-10.0) Eosinophils (%) (Auto) % (0.0-3.0) Basophils (%) (Auto) % (0.0-2.0) Differential Total Cells Counted 100 Neutrophils % (Manual) 66 % (45-75) Lymphocytes % (Manual) 19 % (20-45) L Monocytes % (Manual) 12 % (1-10) H Eosinophils % (Manual) 3 % (0-3) Basophils % (Manual) 0 % (0-2) Band Neutrophils 0 % (0-8) Platelet Estimate Decreased L Platelet Morphology Normal Hypochromasia 2+ Anisocytosis 1+ Spherocytes 2+ Prothrombin Time 14.4 SEC (9.30-11.50) H Prothromb Time International Ratio 1.4 (0.9-1.1) H Activated Partial Thromboplast Time 34 SEC (23-33) H Sodium Level 142 mEQ/L (135-145) Potassium Level 3.9 mEQ/L (3.4-4.9) Chloride Level 105 mEQ/L (98-107) Carbon Dioxide Level 25 mEQ/L (20-30) Anion Gap 12 (5-15) Blood Urea Nitrogen 23 mg/dL (7-23) Creatinine 1.5 mg/dL (0.5-0.9) H Estimat Glomerular Filtration Rate 36.4 mL/min (>60) Glucose Level 74 mg/dL (74-106) Calcium Level 8.3 mg/dL (8.6-10.2) L Objective HEAD AND NECK: No JVD. LUNGS: Clear. CARDIOVASCULAR: Regular S1 and S2 with no gallop or murmur. ABDOMEN: Abdomen is soft.PEG in place. EXTREMITIES: 1+ pitting edema. ELIUD LALA February 22, 2017 17:03
--- NOTE | 2017-02-22 17:11 | Procedure Note ---
DATE OF PROCEDURE: 02/22/2017 SURGEON: Garth Gil M.D. PROCEDURE: Upper endoscopy with PEG placement. ANESTHESIA: Per HEATER ENGINEER HELPER, Lisandra Tarsage. INSTRUMENT: Olympus adult flexible upper endoscope. INDICATION: Dysphagia. REASON FOR PROCEDURE: The procedure, risks, benefits, and possible consequences, including hemorrhage, aspiration, perforation and infection, and alternative treatments, were explained to the patient/legal guardian by Dr. Garth Gil and the patient/legal guardian understood and accepted these risks. DESCRIPTION OF PROCEDURE: After informed consent was obtained and the patient was adequately sedated, Olympus upper endoscope was advanced from the mouth into the second portion of the duodenum and retroflexion was performed of the stomach. The patient had evidence of distal esophageal varices grade 2/maximum 3, four columns without any stigmata. In the stomach, there was evidence of portal hypertensive gastropathy. Then under endoscopic guidance and under sterile condition, a 20-Macedonian pull type of G-tube was successfully placed in the epigastric area. The distance from the tip to the skin was less than 3 cm in size. The patient tolerated the procedure very well without any complication. There was no bleeding or leakage of ascitic fluid after the PEG was placed. SUMMARY OF FINDINGS: 1. Status post successful percutaneous endoscopic gastrostomy placement. 2. Esophageal varices. 3. Portal hypertensive gastropathy. RECOMMENDATIONS: 1. Abdominal binder. 2. Elevate the head of the bed at all times. 3. G-tube flush. 4. G-tube care. 5. The patient received a dose of antibiotics prior to this procedure. We are going to start the patient on propranolol 10 mg p.o. t.i.d. for esophageal varices bleeding prophylaxis. I want to thank, Dr. Adolfo Busch, for this kind referral please. Garth Gil M.D. DR: SESAR JOB#: [id number] CC: Adolfo Busch D.O.
[2017-02-22] MEDS: Morphine Sulfate 2mg/ml Inj IVP PRN (18:17)
[2017-02-23 04:00] VITALS: BP 103/67
[2017-02-23] MEDS: Propranolol 10mg tab ORAL SCH ×3 (05:31→21:32)
[2017-02-23] MEDS: Lactulose 20gm/30ml UDC NG SCH ×2 (05:31→17:10)
[2017-02-23 06:29] LABS: MEAN CORPUSCULAR HEMOGLOBIN 33.1 PG (27.0-31.0); MEAN CORPUSCULAR HGB CONC 33.5 G/DL (32.0-36.0); MEAN CORPUSCULAR VOLUME 99 FL (80-99); MEAN PLATELET VOLUME 8.4 FL (6.5-10.1); PLATELET COUNT 59 K/UL (150-450); RED CELL DISTRIBUTION WIDTH 15.9 % (11.6-14.8); WHITE BLOOD COUNT 7.2 K/UL (4.8-10.8)
--- NOTE | 2017-02-23 06:33 | General Progress Note ---
Assessment/Plan Problem List: (1) Liver cirrhosis ICD Codes: K74.60 - Unspecified cirrhosis of liver SNOMED: 69546762 Qualifiers: Qualified Codes: K74.60 - Unspecified cirrhosis of liver (2) Encephalopathy ICD Codes: G93.40 - Encephalopathy, unspecified SNOMED: 10544341, 643894014 (3) UTI (urinary tract infection) ICD Codes: N39.0 - Urinary tract infection, site not specified SNOMED: 81107591 Qualifiers: Qualified Codes: N30.01 - Acute cystitis with hematuria (4) Encephalopathy, multifactorial, hepatic/septic/renal (5) Altered mental state ICD Codes: R41.82 - Altered mental status, unspecified SNOMED: 357113868, 660450331 Qualifiers: Qualified Codes: R41.82 - Altered mental status, unspecified (6) Severe malnutrition ICD Codes: E43 - Unspecified severe protein-calorie malnutrition SNOMED: 81505063 (7) Psychiatric disorder ICD Codes: F99 - Mental disorder, not otherwise specified SNOMED: 97086640, 849000392 Status: stable, progressing Assessment/Plan ot pt diet ivf psyc neuro gi tx dc snf Subjective Constitutional: Reports: weakness Allergies: Coded Allergies: PENICILLINS (Verified Allergy, Unknown, 02/10/17) All Systems: reviewed and negative except above Subjective 02nc confused s/p gtube Objective Last 24 Hour Vital Signs Date Time Temp Pulse Resp B/P Pulse Ox O2 Delivery O2 Flow Rate FiO2 02/23/17 05:31 81 103/67 02/23/17 04:00 97.2 18 103/67 99 Nasal Cannula 3.0 02/22/17 23:44 97.9 77 17 117/69 95 Nasal Cannula 02/22/17 21:21 95 117/65 02/22/17 20:28 94 Nasal Cannula 3.0 32 02/22/17 20:28 Nasal Cannula 3.0 32 02/22/17 19:27 97.9 97 16 108/66 99 02/22/17 16:00 97.0 92 20 116/70 92 Nasal Cannula 3.0 02/22/17 14:00 87 96/52 02/22/17 12:00 97.2 87 20 96/52 94 Nasal Cannula 3.0 02/22/17 09:17 97.4 83 20 97/55 100 Simple Mask 5.0 02/22/17 09:00 85 20 93/53 100 Simple Mask 5.0 02/22/17 08:45 80 14 98 02/22/17 08:41 82 14 100 02/22/17 08:40 81 20 107/61 100 Simple Mask 8.0 02/22/17 08:35 83 20 111/65 100 Simple Mask 8.0 02/22/17 08:30 97.6 83 20 91/55 94 Simple Mask 8.0 02/22/17 08:05 96 Nasal Cannula 3.0 32 02/22/17 08:05 Nasal Cannula 3.0 32 02/22/17 08:00 97.5 87 20 127/82 97 Nasal Cannula 3.0 Intake and Output 02/22/17 02/23/17 19:00 07:00 Intake Total 620 ml 650 ml Output Total 900 ml 400 ml Balance -280 ml 250 ml IV Total 600 ml 450 ml Tube Feeding 20 ml Blood Product 200 ml Output Urine Total 900 ml 400 ml Laboratory Tests 02/23/17 06:00: White Blood Count [Pending], Red Blood Count [Pending], Hemoglobin [Pending], Hematocrit [Pending], Mean Corpuscular Volume [Pending], Mean Corpuscular Hemoglobin [Pending], Mean Corpuscular Hemoglobin Concent [Pending], Red Cell Distribution Width [Pending], Platelet Count [Pending], Mean Platelet Volume [ Pending], Neutrophils (%) (Auto) [Pending], Lymphocytes (%) (Auto) [Pending], Monocytes (%) (Auto) [Pending], Eosinophils (%) (Auto) [Pending], Basophils (%) (Auto) [Pending], Prothrombin Time [Pending], Prothromb Time International Ratio [Pending], Activated Partial Thromboplast Time [Pending], Sodium Level [ Pending], Potassium Level [Pending], Chloride Level [Pending], Carbon Dioxide Level [Pending], Blood Urea Nitrogen [Pending], Creatinine [Pending], Estimat Glomerular Filtration Rate [Pending], Glucose Level [Pending], Calcium Level [ Pending], Ammonia [Pending] Height (Feet): 5 Height (Inches): 5.00 Weight (Pounds): 130 General Appearance: lethargic, confused EENT: normal ENT inspection Neck: normal alignment Cardiovascular: normal peripheral pulses, normal rate, regular rhythm Respiratory/Chest: chest wall non-tender, lungs clear, normal breath sounds Abdomen: normal bowel sounds, non tender, soft Extremities: normal inspection Edema: no edema noted Arm (L), no edema noted Arm (R), no edema noted Leg (L), no edema noted Leg (R), no edema noted Pedal (L), no edema noted Pedal (R), no edema noted Generalized Neurologic: motor weakness Skin: normal pigmentation, warm/dry TERE GILES February 23, 2017 06:32
[2017-02-23 06:43] LABS: CREATININE 1.8 mg/dL (0.5-0.9); GLOMERULAR FILTRATION RATE 29.5 mL/min (>60); POTASSIUM 4.2 mEQ/L (3.4-4.9)
[2017-02-23 07:18] LABS: INR 1.5 (0.9-1.1); PROTHROMBIN TIME 15.5 SEC (9.30-11.50)
[2017-02-23 08:00] VITALS: BP 90/59
[2017-02-23] MEDS ORDERED: CIPROFLOXACIN 400 MG/200 ML IV ONE (10:17)
[2017-02-23] MEDS ORDERED: Propofol 10mg/ml 20ml IV ONE (10:17)
[2017-02-23] MEDS ORDERED: LR 1000ml ONE (10:17)
[2017-02-23 10:39] LABS: BAND NEUTROPHILS % (MANUAL) 2 % (0-8); BASOPHILS % (MANUAL) 0 % (0-2); EOSINOPHILS % (MANUAL) 0 % (0-3); LYMPHOCYTES % (MANUAL) 15 % (20-45); NEUTROPHILS % (MANUAL) 76 % (45-75); PLATELET ESTIMATE DECREASED; PLATELET MORPHOLOGY NORMAL; TOTAL CELLS COUNTED 100
[2017-02-23 10:40] LABS: ANISOCYTOSIS 1+; MACROCYTES 1+
[2017-02-23] MEDS: ARIPiprazole 10mg tab NG SCH (10:58)
[2017-02-23] MEDS: Rifaximin 550mg tab NG SCH ×2 (10:58→21:36)
[2017-02-23] MEDS: Valproic Acid 250mg/5ml Liquid GT SCH ×2 (10:59→21:31)
--- NOTE | 2017-02-23 11:13 | GI Progress Note ---
Assessment/Plan Problems: (1) Severe malnutrition ICD Codes: E43 - Unspecified severe protein-calorie malnutrition SNOMED: 05196786 (2) Altered mental state ICD Codes: R41.82 - Altered mental status, unspecified SNOMED: 781616918, 747051831 Qualifiers: Qualified Codes: R41.82 - Altered mental status, unspecified (3) Encephalopathy, multifactorial, hepatic/septic/renal (4) Encephalopathy ICD Codes: G93.40 - Encephalopathy, unspecified SNOMED: 38240679, 751883372 (5) Liver cirrhosis ICD Codes: K74.60 - Unspecified cirrhosis of liver SNOMED: 51933124 Qualifiers: Qualified Codes: K74.60 - Unspecified cirrhosis of liver Status: unchanged Status Narrative Discussed with Dr. Gil. Assessment/Plan OB stool negative utox negative hypernatremia >> resolved, reduce lactulose to help Na hep panel negative restart GTFs at low rate monitor H&H, transfuse prn elevated ammonia >> increased lactulose frequency + Xifaxan ppi monitor LFTs fu labs Subjective Subjective limited, calm at rest Objective Last 24 Hour Vital Signs Date Time Temp Pulse Resp B/P Pulse Ox O2 Delivery O2 Flow Rate FiO2 02/23/17 08:00 96.8 74 16 90/59 98 Nasal Cannula 3.0 02/23/17 07:57 96 Nasal Cannula 3.0 32 02/23/17 07:57 Nasal Cannula 3.0 32 02/23/17 05:31 81 103/67 02/23/17 04:00 97.2 18 103/67 99 Nasal Cannula 3.0 02/22/17 23:44 97.9 77 17 117/69 95 Nasal Cannula 02/22/17 21:21 95 117/65 02/22/17 20:28 94 Nasal Cannula 3.0 32 02/22/17 20:28 Nasal Cannula 3.0 32 02/22/17 19:27 97.9 97 16 108/66 99 02/22/17 16:00 97.0 92 20 116/70 92 Nasal Cannula 3.0 02/22/17 14:00 87 96/52 02/22/17 12:00 97.2 87 20 96/52 94 Nasal Cannula 3.0 Intake and Output 02/22/17 02/23/17 19:00 07:00 Intake Total 620 ml 700 ml Output Total 900 ml 400 ml Balance -280 ml 300 ml IV Total 600 ml 500 ml Tube Feeding 20 ml Blood Product 200 ml Output Urine Total 900 ml 400 ml Laboratory Tests Test 02/23/17 06:00 White Blood Count 7.2 K/UL (4.8-10.8) # Red Blood Count 2.40 M/UL (4.20-5.40) L Hemoglobin 8.0 G/DL (12.0-16.0) L Hematocrit 23.7 % (37.0-47.0) L Mean Corpuscular Volume 99 FL (80-99) Mean Corpuscular Hemoglobin 33.1 PG (27.0-31.0) H Mean Corpuscular Hemoglobin Concent 33.5 G/DL (32.0-36.0) Red Cell Distribution Width 15.9 % (11.6-14.8) H Platelet Count 59 K/UL (150-450) #L Mean Platelet Volume 8.4 FL (6.5-10.1) Neutrophils (%) (Auto) % (45.0-75.0) Lymphocytes (%) (Auto) % (20.0-45.0) Monocytes (%) (Auto) % (1.0-10.0) Eosinophils (%) (Auto) % (0.0-3.0) Basophils (%) (Auto) % (0.0-2.0) Differential Total Cells Counted 100 Neutrophils % (Manual) 76 % (45-75) H Lymphocytes % (Manual) 15 % (20-45) L Monocytes % (Manual) 7 % (1-10) Eosinophils % (Manual) 0 % (0-3) Basophils % (Manual) 0 % (0-2) Band Neutrophils 2 % (0-8) Platelet Estimate Decreased L Platelet Morphology Normal Anisocytosis 1+ Macrocytosis 1+ Prothrombin Time 15.5 SEC (9.30-11.50) H Prothromb Time International Ratio 1.5 (0.9-1.1) H Activated Partial Thromboplast Time 34 SEC (23-33) H Sodium Level 142 mEQ/L (135-145) Potassium Level 4.2 mEQ/L (3.4-4.9) Chloride Level 105 mEQ/L (98-107) Carbon Dioxide Level 23 mEQ/L (20-30) Anion Gap 14 (5-15) Blood Urea Nitrogen 31 mg/dL (7-23) H Creatinine 1.8 mg/dL (0.5-0.9) H Estimat Glomerular Filtration Rate 29.5 mL/min (>60) Glucose Level 84 mg/dL (74-106) Calcium Level 8.0 mg/dL (8.6-10.2) L Ammonia 166 umol/L (11-51) H Height (Feet): 5 Height (Inches): 5.00 Weight (Pounds): 130 General Appearance: lethargic, confused Cardiovascular: normal rate Respiratory/Chest: no respiratory distress Abdominal Exam: GT site - dried blood around site Diamond Smith N.P. February 23, 2017 11:13
[2017-02-23 12:00] VITALS: BP 91/53
[2017-02-23] MEDS ORDERED: Lactulose 20gm/30ml UDC NG SCH (12:00)
--- NOTE | 2017-02-23 14:16 | Pulmonology Progress Note ---
Assessment/Plan Problems: (1) Encephalopathy (2) Liver cirrhosis (3) UTI (urinary tract infection) (4) Encephalopathy, multifactorial, hepatic/septic/renal (5) Psychiatric disorder Assessment/Plan increase NS transfuse prbc somnolent Haldol prn vitamin K f/u electrolytes keep in teli. consider DNR and comfort care Subjective ROS Limited/Unobtainable: No Constitutional: Reports: no symptoms HEENT: Repors: no symptoms Respiratory: Reports: no symptoms Cardiovascular: Reports: no symptoms Allergies: Coded Allergies: PENICILLINS (Verified Allergy, Unknown, 02/10/17) Objective Last 24 Hour Vital Signs Date Time Temp Pulse Resp B/P Pulse Ox O2 Delivery O2 Flow Rate FiO2 02/23/17 12:00 96.1 92 15 91/53 98 Nasal Cannula 3.0 02/23/17 08:00 96.8 74 16 90/59 98 Nasal Cannula 3.0 02/23/17 07:57 96 Nasal Cannula 3.0 32 02/23/17 07:57 Nasal Cannula 3.0 32 02/23/17 05:31 81 103/67 02/23/17 04:00 97.2 18 103/67 99 Nasal Cannula 3.0 02/22/17 23:44 97.9 77 17 117/69 95 Nasal Cannula 02/22/17 21:21 95 117/65 02/22/17 20:28 94 Nasal Cannula 3.0 32 02/22/17 20:28 Nasal Cannula 3.0 32 02/22/17 19:27 97.9 97 16 108/66 99 02/22/17 16:00 97.0 92 20 116/70 92 Nasal Cannula 3.0 Intake and Output 02/22/17 02/23/17 19:00 07:00 Intake Total 620 ml 700 ml Output Total 900 ml 400 ml Balance -280 ml 300 ml IV Total 600 ml 500 ml Tube Feeding 20 ml Blood Product 200 ml Output Urine Total 900 ml 400 ml Objective General Appearance: cachetic HEENT: normocephalic, atraumatic Respiratory/Chest: chest wall non-tender, lungs clear Cardiovascular: normal peripheral pulses, normal rate Abdomen: normal bowel sounds, soft, non tender Genitourinary: normal external genitalia Extremities: no cyanosis Laboratory Tests 02/23/17 06:00: White Blood Count 7.2#, Red Blood Count 2.40L, Hemoglobin 8.0L, Hematocrit 23.7L , Mean Corpuscular Volume 99, Mean Corpuscular Hemoglobin 33.1H, Mean Corpuscular Hemoglobin Concent 33.5, Red Cell Distribution Width 15.9H, Platelet Count 59#L, Mean Platelet Volume 8.4, Neutrophils (%) (Auto) , Lymphocytes (%) (Auto) , Monocytes (%) (Auto) , Eosinophils (%) (Auto) , Basophils (%) (Auto) , Differential Total Cells Counted 100, Neutrophils % ( Manual) 76H, Lymphocytes % (Manual) 15L, Monocytes % (Manual) 7, Eosinophils % ( Manual) 0, Basophils % (Manual) 0, Band Neutrophils 2, Platelet Estimate DecreasedL, Platelet Morphology Normal, Anisocytosis 1+, Macrocytosis 1+, Prothrombin Time 15.5H, Prothromb Time International Ratio 1.5H, Activated Partial Thromboplast Time 34H, Sodium Level 142, Potassium Level 4.2, Chloride Level 105, Carbon Dioxide Level 23, Anion Gap 14, Blood Urea Nitrogen 31H, Creatinine 1.8H, Estimat Glomerular Filtration Rate 29.5, Glucose Level 84, Calcium Level 8.0L, Ammonia 166H Current Medications Medications (Trade) Dose Ordered Sig/Gill Route PRN Reason Start Time Stop Time Status Last Admin Dose Admin Al Hydroxide/Mg Hydroxide (Mylanta II) 30 ml Q6H PRN NG dyspepsia 02/21/17 04:18 03/23/17 04:17 Aripiprazole (Abilify) 10 mg DAILY NG 02/21/17 09:00 03/23/17 08:59 02/23/17 10:58 Dextrose (Dextrose 50%) STAT PRN IV Hypoglycemia 02/21/17 04:19 03/23/17 04:18 Fluconazole/ Sodium Chloride (Diflucan 200mg/ 100ml Premix) 100 ml @ 100 mls/hr Q24H IV 02/21/17 13:00 02/28/17 12:59 02/23/17 13:40 Lactulose (Cephulac) 30 gm Q6HR NG 02/23/17 12:00 03/25/17 11:59 02/23/17 13:41 Lansoprazole (Prevacid) 30 mg ACBREAKFAST NG 02/21/17 06:30 03/23/17 06:29 02/23/17 05:31 Lorazepam (Ativan 2mg/ml 1ml) 1 mg Q4H PRN IV For Anxiety 02/21/17 04:20 02/28/17 04:19 02/21/17 13:16 Morphine Sulfate (Morphine Sulfate) 2 mg Q4H PRN IVP SEVERE PAIN 02/21/17 04:20 02/28/17 04:19 02/22/17 18:17 Ondansetron HCl (Zofran) 4 mg Q6H PRN IVP Nausea & Vomiting 02/21/17 04:20 03/23/17 04:19 Propranolol HCl (Inderal) 10 mg Q8HR ORAL 02/22/17 14:00 03/24/17 13:59 02/22/17 21:21 Quetiapine Fumarate (SEROquel) 100 mg QHS NG 02/21/17 21:00 03/23/17 20:59 02/22/17 21:22 Rifaximin (Xifaxan) 550 mg EVERY 12 HOURS NG 02/21/17 09:00 02/28/17 08:59 02/23/17 10:58 Sodium Chloride 1,000 ml @ 50 mls/hr Q20H IV 02/21/17 04:00 03/23/17 03:59 02/22/17 22:29 Valproic Acid (Depakene) 500 mg Q12HR GT 02/21/17 09:00 03/23/17 08:59 02/23/17 10:59 MANFRED YING February 23, 2017 14:16
[2017-02-23] MEDS ORDERED: Clindamycin 600mg 50 ML IVPB SCH (15:15)
[2017-02-23] MEDS ORDERED: Aztreonam Inj 2 GM in D5W 110 ML IVPB SCH (15:15)
--- NOTE | 2017-02-23 15:21 | Infectious Diseases Prog Note ---
Assessment/Plan Problems: (1) Aspiration of blood Assessment & Plan: rule out pneumonia, will order CXR , and start clindamycin with aztreonam empirically, send sputum culture if she produces any (2) Hypotension Assessment & Plan: recurrent , rule out sepsis, will repeat blood culture, and check CXR, will start aztreonam and clindamycin (3) Candiduria Assessment & Plan: continue fluconazole for two weeks, had renal US recently didn't show any stones as a source , laguerre catheter was changed. (4) Encephalopathy, multifactorial, hepatic/septic/renal Assessment & Plan: with elevated ammonia level, continue lactulose, neurology is following (5) Liver cirrhosis Assessment & Plan: with negative hepatitis panel, continue supportive care, avoid hepatotoxic meds, consult GI (6) Severe malnutrition Assessment & Plan: with dysphagia, had PEG tube today by GI, further recommendations as per GI (7) Upper GI hemorrhage Assessment & Plan: rule out esophageal bleeding, recommend EGD, monitor H/H , transfuse blood as needed (8) SHERIE (acute kidney injury) Assessment & Plan: due to hypotension, recommend fluids boluses and hydration, to keep SBP above 100, will order cortison level Subjective ROS Limited/Unobtainable: Yes Allergies: Coded Allergies: PENICILLINS (Verified Allergy, Unknown, 02/10/17) Subjective she was altered , and agitated, has dry bloody secretions in her mouth , unclear whether she aspirated or not, open eyes spontaneously, dosen't follow commands . afebrile Objective Vital Signs Last 24 Hour Vital Signs Date Time Temp Pulse Resp B/P Pulse Ox O2 Delivery O2 Flow Rate FiO2 02/23/17 14:00 92 85/43 02/23/17 12:00 96.1 92 15 91/53 98 Nasal Cannula 3.0 02/23/17 08:00 96.8 74 16 90/59 98 Nasal Cannula 3.0 02/23/17 07:57 96 Nasal Cannula 3.0 32 02/23/17 07:57 Nasal Cannula 3.0 32 02/23/17 05:31 81 103/67 02/23/17 04:00 97.2 18 103/67 99 Nasal Cannula 3.0 02/22/17 23:44 97.9 77 17 117/69 95 Nasal Cannula 02/22/17 21:21 95 117/65 02/22/17 20:28 94 Nasal Cannula 3.0 32 02/22/17 20:28 Nasal Cannula 3.0 32 02/22/17 19:27 97.9 97 16 108/66 99 02/22/17 16:00 97.0 92 20 116/70 92 Nasal Cannula 3.0 Height (Feet): 5 Height (Inches): 5.00 Weight (Pounds): 130 General Appearance: WD/WN, cachetic, other - obtunded, unresponsive HEENT: normocephalic, atraumatic, PERRL, no JVD, other - dry bloody secretions in her mouth Respiratory/Chest: chest wall non-tender, no respiratory distress, no accessory muscle use, decreased breath sounds, crackles/rales Cardiovascular: normal peripheral pulses, normal rate, regular rhythm, no gallop/murmur, no JVD Abdomen: normal bowel sounds, soft, non tender, no organomegaly, non distended , no mass Extremities: no cyanosis, no clubbing Skin: no rash, no lesions Laboratory Tests Test 02/23/17 06:00 White Blood Count 7.2 K/UL (4.8-10.8) # Red Blood Count 2.40 M/UL (4.20-5.40) L Hemoglobin 8.0 G/DL (12.0-16.0) L Hematocrit 23.7 % (37.0-47.0) L Mean Corpuscular Volume 99 FL (80-99) Mean Corpuscular Hemoglobin 33.1 PG (27.0-31.0) H Mean Corpuscular Hemoglobin Concent 33.5 G/DL (32.0-36.0) Red Cell Distribution Width 15.9 % (11.6-14.8) H Platelet Count 59 K/UL (150-450) #L Mean Platelet Volume 8.4 FL (6.5-10.1) Neutrophils (%) (Auto) % (45.0-75.0) Lymphocytes (%) (Auto) % (20.0-45.0) Monocytes (%) (Auto) % (1.0-10.0) Eosinophils (%) (Auto) % (0.0-3.0) Basophils (%) (Auto) % (0.0-2.0) Differential Total Cells Counted 100 Neutrophils % (Manual) 76 % (45-75) H Lymphocytes % (Manual) 15 % (20-45) L Monocytes % (Manual) 7 % (1-10) Eosinophils % (Manual) 0 % (0-3) Basophils % (Manual) 0 % (0-2) Band Neutrophils 2 % (0-8) Platelet Estimate Decreased L Platelet Morphology Normal Anisocytosis 1+ Macrocytosis 1+ Prothrombin Time 15.5 SEC (9.30-11.50) H Prothromb Time International Ratio 1.5 (0.9-1.1) H Activated Partial Thromboplast Time 34 SEC (23-33) H Sodium Level 142 mEQ/L (135-145) Potassium Level 4.2 mEQ/L (3.4-4.9) Chloride Level 105 mEQ/L (98-107) Carbon Dioxide Level 23 mEQ/L (20-30) Anion Gap 14 (5-15) Blood Urea Nitrogen 31 mg/dL (7-23) H Creatinine 1.8 mg/dL (0.5-0.9) H Estimat Glomerular Filtration Rate 29.5 mL/min (>60) Glucose Level 84 mg/dL (74-106) Calcium Level 8.0 mg/dL (8.6-10.2) L Ammonia 166 umol/L (11-51) H Current Medications Medications (Trade) Dose Ordered Sig/Gill Route PRN Reason Start Time Stop Time Status Last Admin Dose Admin Al Hydroxide/Mg Hydroxide (Mylanta II) 30 ml Q6H PRN NG dyspepsia 02/21/17 04:18 03/23/17 04:17 Aripiprazole (Abilify) 10 mg DAILY NG 02/21/17 09:00 03/23/17 08:59 02/23/17 10:58 Dextrose (Dextrose 50%) STAT PRN IV Hypoglycemia 02/21/17 04:19 03/23/17 04:18 Fluconazole/ Sodium Chloride (Diflucan 200mg/ 100ml Premix) 100 ml @ 100 mls/hr Q24H IV 02/21/17 13:00 02/28/17 12:59 02/23/17 13:40 Lactulose 30 gm 30 gm Q6HR NG 02/23/17 12:00 03/25/17 11:59 02/23/17 13:41 Lansoprazole (Prevacid) 30 mg ACBREAKFAST NG 02/21/17 06:30 03/23/17 06:29 02/23/17 05:31 Lorazepam (Ativan 2mg/ml 1ml) 1 mg Q4H PRN IV For Anxiety 02/21/17 04:20 02/28/17 04:19 02/21/17 13:16 Morphine Sulfate (Morphine Sulfate) 2 mg Q4H PRN IVP SEVERE PAIN 02/21/17 04:20 02/28/17 04:19 02/22/17 18:17 Ondansetron HCl (Zofran) 4 mg Q6H PRN IVP Nausea & Vomiting 02/21/17 04:20 03/23/17 04:19 Phytonadione/ Dextrose (Vitamin K/D5W) 56 ml @ 112 mls/hr ONCE ONCE IVPB 02/23/17 15:30 02/23/17 15:59 Propranolol HCl (Inderal) 10 mg Q8HR ORAL 02/23/17 22:00 03/25/17 21:59 UNV Quetiapine Fumarate (SEROquel) 100 mg QHS NG 02/21/17 21:00 03/23/17 20:59 02/22/17 21:22 Rifaximin (Xifaxan) 550 mg EVERY 12 HOURS NG 02/21/17 09:00 02/28/17 08:59 02/23/17 10:58 Sodium Chloride 1,000 ml @ 150 mls/hr Q6H40M IV 02/24/17 16:00 03/26/17 15:59 Sodium Chloride 1,000 ml @ 999 mls/hr Q1H1M ONCE IV 02/23/17 14:15 02/23/17 15:15 02/23/17 14:37 Valproic Acid (Depakene) 500 mg Q12HR GT 02/21/17 09:00 03/23/17 08:59 02/23/17 10:59 Pura Klein M.D. February 23, 2017 15:21
--- NOTE | 2017-02-23 15:22 | Diagnostic Imaging Report ---
Indication: Cough Comparison: 02/17/17 A single view chest radiograph was obtained. Findings: Heart size remains normal. Pulmonary vascularity and interstitium are mildly prominent with low lung volumes noted. Bones are osteopenic. Impression: No change. No acute findings
[2017-02-23] MEDS ORDERED: Phytonadione 10 MG in D5W 55 ML IVPB ONE (15:30)
[2017-02-23 16:00] VITALS: BP 128/60
--- NOTE | 2017-02-23 16:16 | Cardiac Electrophysiology PN ---
Assessment/Plan Assessment/Plan 1. Hypotension, due to volume depletion, anemia and sepsis. Ruled out for FL.Had another liter IV fluid and getting blood transfusion today. 2. Sinus tachycardia due to sepsis. No fib or SVT. Better on abx and Inderal. 3. Schizophrenia, on Haldol. 4. Cirrhosis of the liver, on lactulose, Inderal and Xifaxan 5. Dysphagia. S/P PEG 02/22/17. PEG feeding on hold as there was some blood in GT aspirate.HAd Platelet transfusion yesterday and getting PRBC today. 6. Agitation. 7. ARF Creatinine 1.8 now. WALE RN. Subjective Subjective Nonverbal. Had PEG yesterday but is not being used for bloody residual.Scheduled for transfusion today.RN at bedside. Objective Last 24 Hour Vital Signs Date Time Temp Pulse Resp B/P Pulse Ox O2 Delivery O2 Flow Rate FiO2 02/23/17 14:00 92 85/43 02/23/17 12:00 96.1 92 15 91/53 98 Nasal Cannula 3.0 02/23/17 08:00 96.8 74 16 90/59 98 Nasal Cannula 3.0 02/23/17 07:57 96 Nasal Cannula 3.0 32 02/23/17 07:57 Nasal Cannula 3.0 32 02/23/17 05:31 81 103/67 02/23/17 04:00 97.2 18 103/67 99 Nasal Cannula 3.0 02/22/17 23:44 97.9 77 17 117/69 95 Nasal Cannula 02/22/17 21:21 95 117/65 02/22/17 20:28 94 Nasal Cannula 3.0 32 02/22/17 20:28 Nasal Cannula 3.0 32 02/22/17 19:27 97.9 97 16 108/66 99 Intake and Output 02/22/17 02/23/17 19:00 07:00 Intake Total 620 ml 700 ml Output Total 900 ml 400 ml Balance -280 ml 300 ml IV Total 600 ml 500 ml Tube Feeding 20 ml Blood Product 200 ml Output Urine Total 900 ml 400 ml Laboratory Tests Test 02/23/17 06:00 White Blood Count 7.2 K/UL (4.8-10.8) # Red Blood Count 2.40 M/UL (4.20-5.40) L Hemoglobin 8.0 G/DL (12.0-16.0) L Hematocrit 23.7 % (37.0-47.0) L Mean Corpuscular Volume 99 FL (80-99) Mean Corpuscular Hemoglobin 33.1 PG (27.0-31.0) H Mean Corpuscular Hemoglobin Concent 33.5 G/DL (32.0-36.0) Red Cell Distribution Width 15.9 % (11.6-14.8) H Platelet Count 59 K/UL (150-450) #L Mean Platelet Volume 8.4 FL (6.5-10.1) Neutrophils (%) (Auto) % (45.0-75.0) Lymphocytes (%) (Auto) % (20.0-45.0) Monocytes (%) (Auto) % (1.0-10.0) Eosinophils (%) (Auto) % (0.0-3.0) Basophils (%) (Auto) % (0.0-2.0) Differential Total Cells Counted 100 Neutrophils % (Manual) 76 % (45-75) H Lymphocytes % (Manual) 15 % (20-45) L Monocytes % (Manual) 7 % (1-10) Eosinophils % (Manual) 0 % (0-3) Basophils % (Manual) 0 % (0-2) Band Neutrophils 2 % (0-8) Platelet Estimate Decreased L Platelet Morphology Normal Anisocytosis 1+ Macrocytosis 1+ Prothrombin Time 15.5 SEC (9.30-11.50) H Prothromb Time International Ratio 1.5 (0.9-1.1) H Activated Partial Thromboplast Time 34 SEC (23-33) H Sodium Level 142 mEQ/L (135-145) Potassium Level 4.2 mEQ/L (3.4-4.9) Chloride Level 105 mEQ/L (98-107) Carbon Dioxide Level 23 mEQ/L (20-30) Anion Gap 14 (5-15) Blood Urea Nitrogen 31 mg/dL (7-23) H Creatinine 1.8 mg/dL (0.5-0.9) H Estimat Glomerular Filtration Rate 29.5 mL/min (>60) Glucose Level 84 mg/dL (74-106) Calcium Level 8.0 mg/dL (8.6-10.2) L Ammonia 166 umol/L (11-51) H Objective HEAD AND NECK: No JVD. LUNGS: Clear. CARDIOVASCULAR: Regular S1 and S2 with no gallop or murmur. ABDOMEN: Abdomen is soft.PEG in place. EXTREMITIES: 1+ pitting edema. ELIUD LALA February 23, 2017 16:16
[2017-02-23] MEDS ORDERED: Mylanta II UD 30ml NG PRN (16:30)
[2017-02-23] MEDS ORDERED: Morphine Sulfate 2mg/ml Inj IVP PRN (16:30)
--- NOTE | 2017-02-23 16:30 | Wound Care Consultation ---
Wound Assessment Wound Assessment : Wound Present on Admission: No New Wound: No Status Change of Wound: No Wound Location Body Site: perineal area Wound Type: chemical burn Teto Test: Does not Teto Percent of Wound [place]/Red: 100 Wound Drainage Amount: None Wound Drainage Odor: None/Absent Tissue Surrounding Wound: Erythemic Wound General Appearance: Reddened Wound Comment #1 Chemical burn on perineal area Reassessed this pt. No deterioration noted at this time, cont same wound care treatment and recommendations. will cont to monitor. Recommendation -Local wound care per protocol with skin barrier to protect the skin from breaking down -Turn and reposition -Keep clean and dry -Offload both heels -Heel protector on both heels -Optimize nutrition -Assess and f/u accordingly for any changes MATEO MATTHEWS RN February 23, 2017 16:30
[2017-02-23] MEDS: LORazepam Inj 2mg/ml 1ml IV PRN (17:10)
[2017-02-23 20:00] VITALS: BP 119/76
[2017-02-23] MEDS: Clindamycin 600mg 50 ML IV SCH (20:38)
[2017-02-23] MEDS: Aztreonam Inj 2 GM in D5W 110 ML IVPB SCH (21:36)
[2017-02-23] MEDS ORDERED: Propranolol 10mg tab ORAL SCH (22:00)
--- NOTE | 2017-02-23 22:44 | Nephrology Progress Note ---
Assessment/Plan Problem List: (1) SHERIE (acute kidney injury) (2) Hypotension (3) Hypernatremia Assessment: improving. (4) Shock (5) Psychiatric disorder (6) Encephalopathy, multifactorial, hepatic/septic/renal (7) UTI (urinary tract infection) Plan S/p G-tube placement, feeding per GI s/p transfusion, monitor H&H, transfuse PRN Monitor neuro status Monitor lytes, correct PRN Monitor renal function Continue IVF AM labs Subjective ROS Limited/Unobtainable: Yes Subjective In no apparent distress. Objective Objective Last 24 Hour Vital Signs Date Time Temp Pulse Resp B/P Pulse Ox O2 Delivery O2 Flow Rate FiO2 02/23/17 21:32 78 119/76 02/23/17 20:16 Nasal Cannula 3.0 32 02/23/17 20:15 96 Nasal Cannula 3.0 32 02/23/17 16:00 97.7 72 18 128/60 96 Nasal Cannula 2.0 02/23/17 14:00 92 85/43 02/23/17 12:00 96.1 92 15 91/53 98 Nasal Cannula 3.0 02/23/17 08:00 96.8 74 16 90/59 98 Nasal Cannula 3.0 02/23/17 07:57 96 Nasal Cannula 3.0 32 02/23/17 07:57 Nasal Cannula 3.0 32 02/23/17 05:31 81 103/67 02/23/17 04:00 97.2 18 103/67 99 Nasal Cannula 3.0 02/22/17 23:44 97.9 77 17 117/69 95 Nasal Cannula Intake and Output 02/22/17 02/23/17 19:00 07:00 Intake Total 620 ml 700 ml Output Total 900 ml 400 ml Balance -280 ml 300 ml IV Total 600 ml 500 ml Tube Feeding 20 ml Blood Product 200 ml Output Urine Total 900 ml 400 ml Laboratory Tests 02/23/17 06:00: White Blood Count 7.2#, Red Blood Count 2.40L, Hemoglobin 8.0L, Hematocrit 23.7L , Mean Corpuscular Volume 99, Mean Corpuscular Hemoglobin 33.1H, Mean Corpuscular Hemoglobin Concent 33.5, Red Cell Distribution Width 15.9H, Platelet Count 59#L, Mean Platelet Volume 8.4, Neutrophils (%) (Auto) , Lymphocytes (%) (Auto) , Monocytes (%) (Auto) , Eosinophils (%) (Auto) , Basophils (%) (Auto) , Differential Total Cells Counted 100, Neutrophils % ( Manual) 76H, Lymphocytes % (Manual) 15L, Monocytes % (Manual) 7, Eosinophils % ( Manual) 0, Basophils % (Manual) 0, Band Neutrophils 2, Platelet Estimate DecreasedL, Platelet Morphology Normal, Anisocytosis 1+, Macrocytosis 1+, Prothrombin Time 15.5H, Prothromb Time International Ratio 1.5H, Activated Partial Thromboplast Time 34H, Sodium Level 142, Potassium Level 4.2, Chloride Level 105, Carbon Dioxide Level 23, Anion Gap 14, Blood Urea Nitrogen 31H, Creatinine 1.8H, Estimat Glomerular Filtration Rate 29.5, Glucose Level 84, Calcium Level 8.0L, Ammonia 166H Height (Feet): 5 Height (Inches): 5.00 Weight (Pounds): 130 General Appearance: no apparent distress, agitated PATRICK ENRIQUEZ February 23, 2017 22:44
[2017-02-24] VITALS (7 sets, daily range): BP systolic 89–138; BP diastolic 48–78
[2017-02-24] MEDS: Lactulose 20gm/30ml UDC NG SCH ×4 (00:16→17:37)
[2017-02-24] MEDS: Aztreonam Inj 2 GM in D5W 110 ML IVPB SCH ×3 (02:31→19:39)
[2017-02-24] MEDS: Clindamycin 600mg 50 ML IV SCH ×3 (03:52→17:45)
[2017-02-24] MEDS: Propranolol 10mg tab ORAL SCH ×3 (06:00→22:16)
[2017-02-24 06:18] LABS: MEAN CORPUSCULAR HEMOGLOBIN 32.7 PG (27.0-31.0); MEAN CORPUSCULAR HGB CONC 33.7 G/DL (32.0-36.0); MEAN CORPUSCULAR VOLUME 97 FL (80-99); MEAN PLATELET VOLUME 8.4 FL (6.5-10.1); PLATELET COUNT 45 K/UL (150-450); RED BLOOD COUNT 2.75 M/UL (4.20-5.40); RED CELL DISTRIBUTION WIDTH 15.8 % (11.6-14.8); WHITE BLOOD COUNT 4.6 K/UL (4.8-10.8)
[2017-02-24 06:28] LABS: CALCIUM 8.3 mg/dL (8.6-10.2); CREATININE 1.6 mg/dL (0.5-0.9); GLOMERULAR FILTRATION RATE 33.7 mL/min (>60)
[2017-02-24] MEDS: Rifaximin 550mg tab NG SCH ×2 (08:39→21:33)
[2017-02-24] MEDS: Valproic Acid 250mg/5ml Liquid GT SCH ×2 (08:40→21:33)
[2017-02-24] MEDS ORDERED: ARIPiprazole 10mg tab NG SCH (09:00)
[2017-02-24] MEDS ORDERED: NS 275ml ONE (09:59)
[2017-02-24] MEDS ORDERED: Tubing Blood Filter IV ONE (09:59)
--- NOTE | 2017-02-24 11:02 | GI Progress Note ---
Assessment/Plan Problems: (1) Severe malnutrition ICD Codes: E43 - Unspecified severe protein-calorie malnutrition SNOMED: 77034862 (2) Altered mental state ICD Codes: R41.82 - Altered mental status, unspecified SNOMED: 671386624, 475242026 Qualifiers: Qualified Codes: R41.82 - Altered mental status, unspecified (3) Encephalopathy, multifactorial, hepatic/septic/renal (4) Encephalopathy ICD Codes: G93.40 - Encephalopathy, unspecified SNOMED: 38153288, 535153095 (5) Liver cirrhosis ICD Codes: K74.60 - Unspecified cirrhosis of liver SNOMED: 77907999 Qualifiers: Qualified Codes: K74.60 - Unspecified cirrhosis of liver Status: not improved, unchanged Status Narrative Discussed with Dr. Gil. Assessment/Plan pt transferred to [facility] for hypotension OB stool negative utox negative hypernatremia >> resolved, reduce lactulose to help Na hep panel negative dc propranolol restart GTFs at low rate monitor H&H, transfuse prn elevated ammonia >> increased lactulose frequency + Xifaxan ppi monitor LFTs fu labs Subjective Subjective limited Objective Last 24 Hour Vital Signs Date Time Temp Pulse Resp B/P Pulse Ox O2 Delivery O2 Flow Rate FiO2 02/24/17 09:03 71 117/71 02/24/17 08:14 96.8 63 18 89/48 93 Nasal Cannula 3.0 02/24/17 06:00 64 102/59 02/24/17 04:00 64 02/24/17 04:00 97.0 66 20 102/59 94 Nasal Cannula 3.0 02/24/17 00:40 98.0 85 20 138/78 96 Nasal Cannula 3.0 02/24/17 00:00 71 02/23/17 21:32 78 119/76 02/23/17 20:16 Nasal Cannula 3.0 32 02/23/17 20:15 96 Nasal Cannula 3.0 32 02/23/17 20:00 97.2 75 20 119/76 94 Nasal Cannula 3.0 02/23/17 20:00 75 02/23/17 16:00 97.7 72 18 128/60 96 Nasal Cannula 2.0 02/23/17 14:00 92 85/43 02/23/17 12:00 96.1 92 15 91/53 98 Nasal Cannula 3.0 Intake and Output 5/17/17 5/18/17 19:00 07:00 Intake Total 1630 ml 1070 ml Output Total 400 ml Balance 1230 ml 1070 ml Free Water 100 ml 100 ml IV Total 1450 ml 640 ml Tube Feeding 80 ml 80 ml Blood Product 250 ml Output Urine Total 400 ml Laboratory Tests Test 02/24/17 05:30 White Blood Count 4.6 K/UL (4.8-10.8) L Red Blood Count 2.75 M/UL (4.20-5.40) L Hemoglobin 9.0 G/DL (12.0-16.0) L Hematocrit 26.7 % (37.0-47.0) L Mean Corpuscular Volume 97 FL (80-99) Mean Corpuscular Hemoglobin 32.7 PG (27.0-31.0) H Mean Corpuscular Hemoglobin Concent 33.7 G/DL (32.0-36.0) Red Cell Distribution Width 15.8 % (11.6-14.8) H Platelet Count 45 K/UL (150-450) L Mean Platelet Volume 8.4 FL (6.5-10.1) Neutrophils (%) (Auto) % (45.0-75.0) Lymphocytes (%) (Auto) % (20.0-45.0) Monocytes (%) (Auto) % (1.0-10.0) Eosinophils (%) (Auto) % (0.0-3.0) Basophils (%) (Auto) % (0.0-2.0) Neutrophils % (Manual) Pending Lymphocytes % (Manual) Pending Platelet Estimate Pending Platelet Morphology Pending Sodium Level 140 mEQ/L (135-145) Potassium Level 4.0 mEQ/L (3.4-4.9) Chloride Level 104 mEQ/L (98-107) Carbon Dioxide Level 22 mEQ/L (20-30) Anion Gap 14 (5-15) Blood Urea Nitrogen 30 mg/dL (7-23) H Creatinine 1.6 mg/dL (0.5-0.9) H Estimat Glomerular Filtration Rate 33.7 mL/min (>60) Glucose Level 114 mg/dL (74-106) H Calcium Level 8.3 mg/dL (8.6-10.2) L Ammonia 145 umol/L (11-51) H Height (Feet): 5 Height (Inches): 5.00 Weight (Pounds): 130 General Appearance: no apparent distress, lethargic, thin Cardiovascular: normal rate Respiratory/Chest: other - 2LNC Abdominal Exam: GT site - c/d/i Diamond Smith N.P. February 24, 2017 11:02
[2017-02-24 11:08] LABS: ANISOCYTOSIS 1+; BAND NEUTROPHILS % (MANUAL) 1 % (0-8); BASOPHILS % (MANUAL) 0 % (0-2); EOSINOPHILS % (MANUAL) 0 % (0-3); LYMPHOCYTES % (MANUAL) 15 % (20-45); NEUTROPHILS % (MANUAL) 78 % (45-75); PLATELET ESTIMATE DECREASED; PLATELET MORPHOLOGY NORMAL; TOTAL CELLS COUNTED 100
--- NOTE | 2017-02-24 11:44 | General Progress Note ---
Assessment/Plan Problem List: (1) UTI (urinary tract infection) ICD Codes: N39.0 - Urinary tract infection, site not specified SNOMED: 42229848 Qualifiers: Qualified Codes: N30.01 - Acute cystitis with hematuria (2) Encephalopathy ICD Codes: G93.40 - Encephalopathy, unspecified SNOMED: 33979216, 716905078 (3) Liver cirrhosis ICD Codes: K74.60 - Unspecified cirrhosis of liver SNOMED: 44833051 Qualifiers: Qualified Codes: K74.60 - Unspecified cirrhosis of liver (4) Altered mental state ICD Codes: R41.82 - Altered mental status, unspecified SNOMED: 662523199, 823714176 Qualifiers: Qualified Codes: R41.82 - Altered mental status, unspecified (5) Encephalopathy, multifactorial, hepatic/septic/renal (6) Severe malnutrition ICD Codes: E43 - Unspecified severe protein-calorie malnutrition SNOMED: 97998509 (7) Psychiatric disorder ICD Codes: F99 - Mental disorder, not otherwise specified SNOMED: 52053181, 681338523 (8) SHERIE (acute kidney injury) ICD Codes: N17.9 - Acute kidney failure, unspecified SNOMED: 84933505 (9) Hypotension ICD Codes: I95.9 - Hypotension, unspecified SNOMED: 04152890 (10) Hypernatremia ICD Codes: E87.0 - Hyperosmolality and hypernatremia SNOMED: 96249363 Status: progressing Assessment/Plan moniter for bleeding reviewed chart and labs check labs no wheezing vitals are holding Subjective Allergies: Coded Allergies: PENICILLINS (Verified Allergy, Unknown, 02/10/17) Objective Last 24 Hour Vital Signs Date Time Temp Pulse Resp B/P Pulse Ox O2 Delivery O2 Flow Rate FiO2 02/24/17 09:03 71 117/71 02/24/17 08:14 96.8 63 18 89/48 93 Nasal Cannula 3.0 02/24/17 06:00 64 102/59 02/24/17 04:00 64 02/24/17 04:00 97.0 66 20 102/59 94 Nasal Cannula 3.0 02/24/17 00:40 98.0 85 20 138/78 96 Nasal Cannula 3.0 02/24/17 00:00 71 02/23/17 21:32 78 119/76 02/23/17 20:16 Nasal Cannula 3.0 32 02/23/17 20:15 96 Nasal Cannula 3.0 32 02/23/17 20:00 97.2 75 20 119/76 94 Nasal Cannula 3.0 02/23/17 20:00 75 02/23/17 16:00 97.7 72 18 128/60 96 Nasal Cannula 2.0 02/23/17 14:00 92 85/43 02/23/17 12:00 96.1 92 15 91/53 98 Nasal Cannula 3.0 Intake and Output 02/23/17 02/24/17 19:00 07:00 Intake Total 1630 ml 1070 ml Output Total 400 ml Balance 1230 ml 1070 ml Free Water 100 ml 100 ml IV Total 1450 ml 640 ml Tube Feeding 80 ml 80 ml Blood Product 250 ml Output Urine Total 400 ml Laboratory Tests 02/24/17 05:30: White Blood Count 4.6L, Red Blood Count 2.75L, Hemoglobin 9.0L, Hematocrit 26.7L , Mean Corpuscular Volume 97, Mean Corpuscular Hemoglobin 32.7H, Mean Corpuscular Hemoglobin Concent 33.7, Red Cell Distribution Width 15.8H, Platelet Count 45L, Mean Platelet Volume 8.4, Neutrophils (%) (Auto) , Lymphocytes (%) (Auto) , Monocytes (%) (Auto) , Eosinophils (%) (Auto) , Basophils (%) (Auto) , Differential Total Cells Counted 100, Neutrophils % ( Manual) 78H, Lymphocytes % (Manual) 15L, Monocytes % (Manual) 6, Eosinophils % ( Manual) 0, Basophils % (Manual) 0, Band Neutrophils 1, Platelet Estimate DecreasedL, Platelet Morphology Normal, Anisocytosis 1+, Sodium Level 140, Potassium Level 4.0, Chloride Level 104, Carbon Dioxide Level 22, Anion Gap 14, Blood Urea Nitrogen 30H, Creatinine 1.6H, Estimat Glomerular Filtration Rate 33.7, Glucose Level 114H, Calcium Level 8.3L, Ammonia 145H Height (Feet): 5 Height (Inches): 5.00 Weight (Pounds): 130 Cardiovascular: normal rate Respiratory/Chest: lungs clear Abdomen: soft Mari Carrington MD February 24, 2017 11:44
[2017-02-24] MEDS ORDERED: Lidocaine 1% Plain 30 ml INJ ONE (12:00)
[2017-02-24] MEDS ORDERED: Sodium Bicarbonate 4% 2.4meq/5ml vial INJ ONE (12:00)
[2017-02-24] MEDS ORDERED: Heparin 2000 units/Ns 1000ml INJ ONE (12:00)
--- NOTE | 2017-02-24 12:11 | Pulmonology Progress Note ---
Assessment/Plan Problems: (1) Encephalopathy (2) ATN (acute tubular necrosis) (3) Shock (4) Liver cirrhosis (5) UTI (urinary tract infection) (6) Encephalopathy, multifactorial, hepatic/septic/renal (7) Psychiatric disorder (8) Severe malnutrition Assessment/Plan VS stagble increase NS transfuse prbc prn somnolent Haldol prn vitamin K all notes, labs, meds reviewed. consider DNR and comfort care Subjective ROS Limited/Unobtainable: No Interval Events: [place] Constitutional: Reports: no symptoms HEENT: Repors: no symptoms Allergies: Coded Allergies: PENICILLINS (Verified Allergy, Unknown, 02/10/17) Objective Last 24 Hour Vital Signs Date Time Temp Pulse Resp B/P Pulse Ox O2 Delivery O2 Flow Rate FiO2 02/24/17 09:03 71 117/71 02/24/17 08:14 96.8 63 18 89/48 93 Nasal Cannula 3.0 02/24/17 06:00 64 102/59 02/24/17 04:00 64 02/24/17 04:00 97.0 66 20 102/59 94 Nasal Cannula 3.0 02/24/17 00:40 98.0 85 20 138/78 96 Nasal Cannula 3.0 02/24/17 00:00 71 02/23/17 21:32 78 119/76 02/23/17 20:16 Nasal Cannula 3.0 32 02/23/17 20:15 96 Nasal Cannula 3.0 32 02/23/17 20:00 97.2 75 20 119/76 94 Nasal Cannula 3.0 02/23/17 20:00 75 02/23/17 16:00 97.7 72 18 128/60 96 Nasal Cannula 2.0 02/23/17 14:00 92 85/43 Intake and Output 02/23/17 02/24/17 19:00 07:00 Intake Total 1630 ml 1070 ml Output Total 400 ml Balance 1230 ml 1070 ml Free Water 100 ml 100 ml IV Total 1450 ml 640 ml Tube Feeding 80 ml 80 ml Blood Product 250 ml Output Urine Total 400 ml Objective General Appearance: cachetic HEENT: normocephalic, atraumatic Respiratory/Chest: chest wall non-tender, lungs clear Cardiovascular: normal peripheral pulses, normal rate Abdomen: normal bowel sounds, soft, non tender, PEG Genitourinary: normal external genitalia Extremities: no cyanosis Laboratory Tests 02/24/17 05:30: White Blood Count 4.6L, Red Blood Count 2.75L, Hemoglobin 9.0L, Hematocrit 26.7L , Mean Corpuscular Volume 97, Mean Corpuscular Hemoglobin 32.7H, Mean Corpuscular Hemoglobin Concent 33.7, Red Cell Distribution Width 15.8H, Platelet Count 45L, Mean Platelet Volume 8.4, Neutrophils (%) (Auto) , Lymphocytes (%) (Auto) , Monocytes (%) (Auto) , Eosinophils (%) (Auto) , Basophils (%) (Auto) , Differential Total Cells Counted 100, Neutrophils % ( Manual) 78H, Lymphocytes % (Manual) 15L, Monocytes % (Manual) 6, Eosinophils % ( Manual) 0, Basophils % (Manual) 0, Band Neutrophils 1, Platelet Estimate DecreasedL, Platelet Morphology Normal, Anisocytosis 1+, Sodium Level 140, Potassium Level 4.0, Chloride Level 104, Carbon Dioxide Level 22, Anion Gap 14, Blood Urea Nitrogen 30H, Creatinine 1.6H, Estimat Glomerular Filtration Rate 33.7, Glucose Level 114H, Calcium Level 8.3L, Ammonia 145H Current Medications Medications (Trade) Dose Ordered Sig/Gill Route PRN Reason Start Time Stop Time Status Last Admin Dose Admin Al Hydroxide/Mg Hydroxide (Mylanta II) 30 ml Q6H PRN NG dyspepsia 02/23/17 16:30 03/25/17 16:29 Aripiprazole (Abilify) 10 mg DAILY NG 02/24/17 09:00 03/26/17 08:59 02/24/17 08:39 Aztreonam 2 gm/ Dextrose 110 ml @ 220 mls/hr Q8H IVPB 02/23/17 19:00 03/02/17 18:59 02/24/17 02:31 Chlorhexidine Gluconate (Madelin-Hex 2%) 1 applic DAILY TOPIC 02/24/17 15:00 03/26/17 14:59 Clindamycin HCl/ Dextrose 50 ml @ 100 mls/hr Q8H IV 02/23/17 18:00 03/02/17 17:59 02/24/17 10:34 Dextrose (Dextrose 50%) STAT PRN IV Hypoglycemia 02/23/17 16:30 03/25/17 16:29 Fluconazole/ Sodium Chloride 100 ml @ 100 mls/hr Q24H IV 02/24/17 13:00 02/27/17 12:59 Lactulose (Cephulac) 30 gm Q6HR NG 02/23/17 18:00 03/25/17 17:59 02/24/17 06:22 Lansoprazole (Prevacid) 30 mg ACBREAKFAST NG 02/24/17 06:30 03/26/17 06:29 02/24/17 06:22 Lorazepam (Ativan 2mg/ml 1ml) 1 mg Q4H PRN IV For Anxiety 02/23/17 16:30 03/02/17 16:29 02/23/17 17:10 Morphine Sulfate (Morphine Sulfate) 2 mg Q4H PRN IVP SEVERE PAIN 02/23/17 16:30 03/02/17 16:29 02/24/17 10:33 Ondansetron HCl (Zofran) 4 mg Q6H PRN IVP Nausea & Vomiting 02/23/17 16:30 03/25/17 16:29 Phytonadione/ Dextrose (Vitamin K/D5W) 56 ml @ 112 mls/hr ONCE ONCE IVPB 02/24/17 16:30 02/24/17 16:59 Propranolol HCl (Inderal) 10 mg Q8HR ORAL 02/23/17 22:00 03/25/17 21:59 02/23/17 21:32 Quetiapine Fumarate (SEROquel) 100 mg QHS NG 02/23/17 21:00 03/25/17 20:59 02/23/17 21:33 Rifaximin (Xifaxan) 550 mg EVERY 12 HOURS NG 02/23/17 21:00 03/02/17 20:59 02/24/17 08:39 Sodium Chloride 1,000 ml @ 150 mls/hr Q6H40M IV 02/24/17 16:30 03/26/17 16:29 02/24/17 08:39 Valproic Acid (Depakene) 500 mg Q12HR GT 02/23/17 21:00 03/25/17 20:59 02/24/17 08:40 MANFRED YING February 24, 2017 12:11
--- NOTE | 2017-02-24 14:51 | Infectious Diseases Prog Note ---
Assessment/Plan Problems: (1) Aspiration of blood Assessment & Plan: possible pneumonia , on clindamycin with aztreonam empirically, send sputum culture if she produces any (2) Hypotension Assessment & Plan: recurrent , rule out sepsis, repeated blood culture is pending , continue aztreonam and clindamycin (3) Candiduria Assessment & Plan: continue fluconazole for two weeks, had renal US recently didn't show any stones as a source , laguerre catheter was changed. (4) Encephalopathy, multifactorial, hepatic/septic/renal Assessment & Plan: with elevated ammonia level, continue lactulose, neurology is following (5) Liver cirrhosis Assessment & Plan: with negative hepatitis panel, continue supportive care, avoid hepatotoxic meds, consult GI (6) Severe malnutrition Assessment & Plan: with dysphagia, had PEG tube today by GI, further recommendations as per GI (7) Upper GI hemorrhage Assessment & Plan: rule out esophageal bleeding, recommend EGD, monitor H/H , transfuse blood as needed (8) SHERIE (acute kidney injury) Assessment & Plan: due to hypotension, recommend fluids boluses and hydration, to keep SBP above 100, will order cortison level Subjective ROS Limited/Unobtainable: Yes Allergies: Coded Allergies: PENICILLINS (Verified Allergy, Unknown, 02/10/17) Subjective she is still altered , and confused , open eyes spontaneously, dosen't follow commands . afebrile Objective Vital Signs Last 24 Hour Vital Signs Date Time Temp Pulse Resp B/P Pulse Ox O2 Delivery O2 Flow Rate FiO2 02/24/17 12:00 97.0 66 18 99/56 99 Nasal Cannula 3.0 02/24/17 09:03 71 117/71 02/24/17 08:14 96.8 63 18 89/48 93 Nasal Cannula 3.0 02/24/17 06:00 64 102/59 02/24/17 04:00 64 02/24/17 04:00 97.0 66 20 102/59 94 Nasal Cannula 3.0 02/24/17 00:40 98.0 85 20 138/78 96 Nasal Cannula 3.0 02/24/17 00:00 71 02/23/17 21:32 78 119/76 02/23/17 20:16 Nasal Cannula 3.0 32 02/23/17 20:15 96 Nasal Cannula 3.0 32 02/23/17 20:00 97.2 75 20 119/76 94 Nasal Cannula 3.0 02/23/17 20:00 75 02/23/17 16:00 97.7 72 18 128/60 96 Nasal Cannula 2.0 Height (Feet): 5 Height (Inches): 5.00 Weight (Pounds): 130 General Appearance: WD/WN, no acute distress, cachetic, other HEENT: normocephalic, atraumatic, anicteric, mucous membranes moist Respiratory/Chest: chest wall non-tender, normal breath sounds, no respiratory distress, no accessory muscle use, decreased breath sounds, crackles/rales Cardiovascular: normal peripheral pulses, normal rate, regular rhythm, regularly irregular, no gallop/murmur, no JVD Abdomen: normal bowel sounds, soft, non tender, no organomegaly, non distended , no mass Extremities: no cyanosis, no clubbing Skin: no rash, no lesions Laboratory Tests Test 02/24/17 05:30 White Blood Count 4.6 K/UL (4.8-10.8) L Red Blood Count 2.75 M/UL (4.20-5.40) L Hemoglobin 9.0 G/DL (12.0-16.0) L Hematocrit 26.7 % (37.0-47.0) L Mean Corpuscular Volume 97 FL (80-99) Mean Corpuscular Hemoglobin 32.7 PG (27.0-31.0) H Mean Corpuscular Hemoglobin Concent 33.7 G/DL (32.0-36.0) Red Cell Distribution Width 15.8 % (11.6-14.8) H Platelet Count 45 K/UL (150-450) L Mean Platelet Volume 8.4 FL (6.5-10.1) Neutrophils (%) (Auto) % (45.0-75.0) Lymphocytes (%) (Auto) % (20.0-45.0) Monocytes (%) (Auto) % (1.0-10.0) Eosinophils (%) (Auto) % (0.0-3.0) Basophils (%) (Auto) % (0.0-2.0) Differential Total Cells Counted 100 Neutrophils % (Manual) 78 % (45-75) H Lymphocytes % (Manual) 15 % (20-45) L Monocytes % (Manual) 6 % (1-10) Eosinophils % (Manual) 0 % (0-3) Basophils % (Manual) 0 % (0-2) Band Neutrophils 1 % (0-8) Platelet Estimate Decreased L Platelet Morphology Normal Anisocytosis 1+ Sodium Level 140 mEQ/L (135-145) Potassium Level 4.0 mEQ/L (3.4-4.9) Chloride Level 104 mEQ/L (98-107) Carbon Dioxide Level 22 mEQ/L (20-30) Anion Gap 14 (5-15) Blood Urea Nitrogen 30 mg/dL (7-23) H Creatinine 1.6 mg/dL (0.5-0.9) H Estimat Glomerular Filtration Rate 33.7 mL/min (>60) Glucose Level 114 mg/dL (74-106) H Calcium Level 8.3 mg/dL (8.6-10.2) L Ammonia 145 umol/L (11-51) H Current Medications Medications (Trade) Dose Ordered Sig/Gill Route PRN Reason Start Time Stop Time Status Last Admin Dose Admin Al Hydroxide/Mg Hydroxide (Mylanta II) 30 ml Q6H PRN NG dyspepsia 02/23/17 16:30 03/25/17 16:29 Aripiprazole (Abilify) 10 mg DAILY NG 02/24/17 09:00 03/26/17 08:59 02/24/17 08:39 Aztreonam 2 gm/ Dextrose 110 ml @ 220 mls/hr Q8H IVPB 02/23/17 19:00 03/02/17 18:59 02/24/17 12:17 Chlorhexidine Gluconate (Madelin-Hex 2%) 1 applic DAILY TOPIC 02/24/17 15:00 03/26/17 14:59 Clindamycin HCl/ Dextrose 50 ml @ 100 mls/hr Q8H IV 02/23/17 18:00 03/02/17 17:59 02/24/17 10:34 Dextrose (Dextrose 50%) STAT PRN IV Hypoglycemia 02/23/17 16:30 03/25/17 16:29 Fluconazole/ Sodium Chloride 100 ml @ 100 mls/hr Q24H IV 02/24/17 13:00 02/27/17 12:59 Lactulose (Cephulac) 30 gm Q6HR NG 02/23/17 18:00 03/25/17 17:59 02/24/17 06:22 Lansoprazole (Prevacid) 30 mg ACBREAKFAST NG 02/24/17 06:30 03/26/17 06:29 02/24/17 06:22 Lorazepam (Ativan 2mg/ml 1ml) 1 mg Q4H PRN IV For Anxiety 02/23/17 16:30 03/02/17 16:29 02/23/17 17:10 Morphine Sulfate (Morphine Sulfate) 2 mg Q4H PRN IVP SEVERE PAIN 02/23/17 16:30 03/02/17 16:29 02/24/17 10:33 Ondansetron HCl (Zofran) 4 mg Q6H PRN IVP Nausea & Vomiting 02/23/17 16:30 03/25/17 16:29 Phytonadione/ Dextrose (Vitamin K/D5W) 56 ml @ 112 mls/hr ONCE ONCE IVPB 02/24/17 16:30 02/24/17 16:59 Propranolol HCl (Inderal) 10 mg Q8HR ORAL 02/23/17 22:00 03/25/17 21:59 02/23/17 21:32 Quetiapine Fumarate (SEROquel) 100 mg QHS NG 02/23/17 21:00 03/25/17 20:59 02/23/17 21:33 Rifaximin (Xifaxan) 550 mg EVERY 12 HOURS NG 02/23/17 21:00 03/02/17 20:59 02/24/17 08:39 Sodium Chloride 1,000 ml @ 150 mls/hr Q6H40M IV 02/24/17 16:30 03/26/17 16:29 02/24/17 08:39 Valproic Acid (Depakene) 500 mg Q12HR GT 02/23/17 21:00 03/25/17 20:59 02/24/17 08:40 Pura Klein M.D. February 24, 2017 14:51
--- NOTE | 2017-02-24 15:17 | Diagnostic Imaging Report ---
Indications: Long-term central IV access required for multiple medications. Technique: The procedure indications, risks, and alternatives were explained to the patient's family who understands and gives consent to proceed. Procedure was performed at bedside. Strict aseptic technique was utilized, including hand washing, use of hat and mask, use of sterile gown and gloves, sterile ultrasound gel and probe cover, prepping of right arm skin with 2% chlorhexidine solution, and application of full body sterile barrier over this area. Skin and subcutaneous soft tissues were infiltrated with 1% lidocaine and sodium bicarbonate. A small dermatotomy was made, through which the larger of two patent, adequate size right brachial veins was punctured percutaneously under direct sonographic guidance with a 21-gauge needle. Exchange was made over a 0.018 inch guidewire for a 5 Belgian peel-away sheath. A [facility] Power-PICC 5 Belgian dual lumen central venous catheter was cut to 35 cm, then advanced through the sheath over the guidewire. Guidewire and sheath were removed. Both catheter ports were aspirated, then flushed with heparinized saline. Catheter was secured the skin with adhesive dressing. Patient tolerated procedure well without immediate complications. Followup chest radiograph performed. Findings: Both ports aspirate and flush freely. Chest radiograph demonstrates PICC tip in the right atrium. IMPRESSION: Bedside placement of peripherally inserted central venous catheter via right brachial vein, working well. PICC tip somewhat low in position. The catheter will be withdrawn 5 cm.
--- NOTE | 2017-02-24 15:31 | Cardiac Electrophysiology PN ---
Assessment/Plan Assessment/Plan 1. Hypotension, due to volume depletion, anemia and sepsis. Ruled out for PR.Better after IV fluid and blood transfusion 2. Sinus tachycardia due to sepsis. No fib or SVT. Better on abx and Inderal. 3. Schizophrenia, on Haldol. 4. Cirrhosis of the liver, on lactulose, Inderal and Xifaxan 5. Dysphagia. S/P PEG 02/22/17. 6. Agitation. 7. ARF Creatinine 1.8 now. 8. Thrombocytopenia and anemia, S/P PRBC and platelet transfusion. WALE RN. Subjective Subjective Nonverbal.Feeding via PEG resumed. S/P transfusion Objective Last 24 Hour Vital Signs Date Time Temp Pulse Resp B/P Pulse Ox O2 Delivery O2 Flow Rate FiO2 02/24/17 12:00 97.0 66 18 99/56 99 Nasal Cannula 3.0 02/24/17 09:03 71 117/71 02/24/17 08:14 96.8 63 18 89/48 93 Nasal Cannula 3.0 02/24/17 06:00 64 102/59 02/24/17 04:00 64 02/24/17 04:00 97.0 66 20 102/59 94 Nasal Cannula 3.0 02/24/17 00:40 98.0 85 20 138/78 96 Nasal Cannula 3.0 02/24/17 00:00 71 02/23/17 21:32 78 119/76 02/23/17 20:16 Nasal Cannula 3.0 32 02/23/17 20:15 96 Nasal Cannula 3.0 32 02/23/17 20:00 97.2 75 20 119/76 94 Nasal Cannula 3.0 02/23/17 20:00 75 02/23/17 16:00 97.7 72 18 128/60 96 Nasal Cannula 2.0 Intake and Output 02/23/17 02/24/17 19:00 07:00 Intake Total 1630 ml 1070 ml Output Total 400 ml Balance 1230 ml 1070 ml Free Water 100 ml 100 ml IV Total 1450 ml 640 ml Tube Feeding 80 ml 80 ml Blood Product 250 ml Output Urine Total 400 ml Laboratory Tests Test 02/24/17 05:30 White Blood Count 4.6 K/UL (4.8-10.8) L Red Blood Count 2.75 M/UL (4.20-5.40) L Hemoglobin 9.0 G/DL (12.0-16.0) L Hematocrit 26.7 % (37.0-47.0) L Mean Corpuscular Volume 97 FL (80-99) Mean Corpuscular Hemoglobin 32.7 PG (27.0-31.0) H Mean Corpuscular Hemoglobin Concent 33.7 G/DL (32.0-36.0) Red Cell Distribution Width 15.8 % (11.6-14.8) H Platelet Count 45 K/UL (150-450) L Mean Platelet Volume 8.4 FL (6.5-10.1) Neutrophils (%) (Auto) % (45.0-75.0) Lymphocytes (%) (Auto) % (20.0-45.0) Monocytes (%) (Auto) % (1.0-10.0) Eosinophils (%) (Auto) % (0.0-3.0) Basophils (%) (Auto) % (0.0-2.0) Differential Total Cells Counted 100 Neutrophils % (Manual) 78 % (45-75) H Lymphocytes % (Manual) 15 % (20-45) L Monocytes % (Manual) 6 % (1-10) Eosinophils % (Manual) 0 % (0-3) Basophils % (Manual) 0 % (0-2) Band Neutrophils 1 % (0-8) Platelet Estimate Decreased L Platelet Morphology Normal Anisocytosis 1+ Sodium Level 140 mEQ/L (135-145) Potassium Level 4.0 mEQ/L (3.4-4.9) Chloride Level 104 mEQ/L (98-107) Carbon Dioxide Level 22 mEQ/L (20-30) Anion Gap 14 (5-15) Blood Urea Nitrogen 30 mg/dL (7-23) H Creatinine 1.6 mg/dL (0.5-0.9) H Estimat Glomerular Filtration Rate 33.7 mL/min (>60) Glucose Level 114 mg/dL (74-106) H Calcium Level 8.3 mg/dL (8.6-10.2) L Ammonia 145 umol/L (11-51) H Objective HEAD AND NECK: No JVD. LUNGS: Coarse rhonchi CARDIOVASCULAR: Regular S1 and S2 with no gallop or murmur. ABDOMEN: Abdomen is soft.PEG in place. EXTREMITIES: 1+ pitting edema. ELIUD LALA February 24, 2017 15:31
--- NOTE | 2017-02-24 16:03 | Diagnostic Imaging Report ---
Indications: PICC repositioning Technique: Portable AP chest at 1539 Findings: Comparison: 1447 PICC has been withdrawn, tip now at or near the SVC/right atrial junction. No other change. IMPRESSION: PICC in good position, may be used
[2017-02-24] MEDS: Dyna-Hex 2% Top Sol 8oz TOPIC SCH (16:28)
[2017-02-24] MEDS ORDERED: Phytonadione 10 MG in D5W 55 ML IVPB ONE (16:30)
[2017-02-25] VITALS: BP 120/70
[2017-02-25] MEDS: Lactulose 20gm/30ml UDC NG SCH
[2017-02-25] MEDS: Clindamycin 600mg 50 ML IV SCH ×3 (01:42→17:51)
[2017-02-25] MEDS: Aztreonam Inj 2 GM in D5W 110 ML IVPB SCH ×3 (02:59→19:06)
[2017-02-25 04:26] VITALS: BP 122/78
[2017-02-25] MEDS ORDERED: Mylanta II UD 30ml GT PRN (04:30)
[2017-02-25 05:37] LABS: MEAN CORPUSCULAR HEMOGLOBIN 32.9 PG (27.0-31.0); MEAN CORPUSCULAR HGB CONC 33.7 G/DL (32.0-36.0); MEAN CORPUSCULAR VOLUME 97 FL (80-99); MEAN PLATELET VOLUME 8.8 FL (6.5-10.1); PLATELET COUNT 48 K/UL (150-450); RED BLOOD COUNT 2.81 M/UL (4.20-5.40); RED CELL DISTRIBUTION WIDTH 16.4 % (11.6-14.8)
[2017-02-25] MEDS: Lactulose 20gm/30ml UDC GT SCH ×3 (06:00→17:51)
[2017-02-25 06:05] LABS: CREATININE 1.4 mg/dL (0.5-0.9); GLOMERULAR FILTRATION RATE 39.3 mL/min (>60); POTASSIUM 4.1 mEQ/L (3.4-4.9)
[2017-02-25] MEDS: Propranolol 10mg tab GT SCH ×3 (06:13→21:32)
[2017-02-25 08:00] VITALS: BP 111/72
[2017-02-25] MEDS: ARIPiprazole 10mg tab GT SCH (09:07)
[2017-02-25] MEDS: Valproic Acid 250mg/5ml Liquid GT SCH ×2 (09:07→21:33)
[2017-02-25] MEDS: Rifaximin 550mg tab GT SCH ×2 (09:08→21:32)
[2017-02-25] MEDS: Dyna-Hex 2% Top Sol 8oz TOPIC SCH (09:09)
[2017-02-25] MEDS ORDERED: 1/2 NS 1000ml IV ONE ×2 (09:34→09:51)
[2017-02-25] MEDS ORDERED: Tubing IV Secondary IV ONE ×2 (09:34→09:51)
[2017-02-25] MEDS ORDERED: NS 275ml ONE (09:51)
[2017-02-25] MEDS ORDERED: Tubing Blood Filter IV ONE (09:51)
[2017-02-25] MEDS ORDERED: Sterile Water Irrig 1000ml IRRIG ONE (09:51)
[2017-02-25 10:04] LABS: ANISOCYTOSIS 1+; BAND NEUTROPHILS % (MANUAL) 3 % (0-8); BASOPHILS % (MANUAL) 1 % (0-2); EOSINOPHILS % (MANUAL) 5 % (0-3); LYMPHOCYTES % (MANUAL) 8 % (20-45); NEUTROPHILS % (MANUAL) 75 % (45-75); PLATELET ESTIMATE DECREASED; PLATELET MORPHOLOGY NORMAL; TOTAL CELLS COUNTED 100
--- NOTE | 2017-02-25 10:38 | GI Progress Note ---
Assessment/Plan Problems: (1) Severe malnutrition ICD Codes: E43 - Unspecified severe protein-calorie malnutrition SNOMED: 93314844 (2) Altered mental state ICD Codes: R41.82 - Altered mental status, unspecified SNOMED: 301572684, 144641813 Qualifiers: Qualified Codes: R41.82 - Altered mental status, unspecified (3) Encephalopathy, multifactorial, hepatic/septic/renal (4) Encephalopathy ICD Codes: G93.40 - Encephalopathy, unspecified SNOMED: 34675266, 731339930 (5) Liver cirrhosis ICD Codes: K74.60 - Unspecified cirrhosis of liver SNOMED: 29753905 Qualifiers: Qualified Codes: K74.60 - Unspecified cirrhosis of liver Status: not improved, unchanged Status Narrative Discussed with Dr. Gil. Assessment/Plan pt transferred to [facility] for hypotension OB stool negative utox negative hypernatremia >> resolved, reduce lactulose to help Na hep panel negative dc propranolol GTFs to goal monitor H&H, transfuse prn elevated ammonia >> increased lactulose frequency + Xifaxan ppi monitor LFTs fu labs Subjective Subjective limited Objective Last 24 Hour Vital Signs Date Time Temp Pulse Resp B/P Pulse Ox O2 Delivery O2 Flow Rate FiO2 02/25/17 08:00 96.3 79 18 111/72 97 Nasal Cannula 3.0 02/25/17 08:00 70 02/25/17 06:36 94 Nasal Cannula 3.0 32 02/25/17 06:36 Nasal Cannula 3.0 32 02/25/17 06:13 77 122/78 02/25/17 04:26 97.5 77 18 122/78 98 Nasal Cannula 3.0 02/25/17 03:34 73 02/25/17 00:00 97.5 73 22 120/70 97 Nasal Cannula 3.0 02/24/17 23:45 75 02/24/17 22:16 67 108/74 02/24/17 20:00 95 Nasal Cannula 3.0 32 02/24/17 20:00 97.2 65 18 104/63 98 Nasal Cannula 3.0 02/24/17 20:00 Nasal Cannula 3.0 32 02/24/17 19:23 59 02/24/17 16:00 97.0 68 18 98/48 99 Nasal Cannula 3.0 02/24/17 16:00 59 02/24/17 14:00 66 99/56 02/24/17 12:00 61 02/24/17 12:00 97.0 66 18 99/56 99 Nasal Cannula 3.0 Intake and Output 02/24/17 02/25/17 19:00 07:00 Intake Total 1240 ml 1595 ml Output Total 3850 ml 1400 ml Balance -2610 ml 195 ml Free Water 160 ml 100 ml IV Total 810 ml 1140 ml Tube Feeding 270 ml 355 ml Output Urine Total 3850 ml 1400 ml # Bowel Movements 2 3 Laboratory Tests Test 02/24/17 16:10 02/25/17 03:30 Cortisol 6.1 ug/dL (.) White Blood Count 5.0 K/UL (4.8-10.8) Red Blood Count 2.81 M/UL (4.20-5.40) L Hemoglobin 9.2 G/DL (12.0-16.0) L Hematocrit 27.4 % (37.0-47.0) L Mean Corpuscular Volume 97 FL (80-99) Mean Corpuscular Hemoglobin 32.9 PG (27.0-31.0) H Mean Corpuscular Hemoglobin Concent 33.7 G/DL (32.0-36.0) Red Cell Distribution Width 16.4 % (11.6-14.8) H Platelet Count 48 K/UL (150-450) L Mean Platelet Volume 8.8 FL (6.5-10.1) Neutrophils (%) (Auto) % (45.0-75.0) Lymphocytes (%) (Auto) % (20.0-45.0) Monocytes (%) (Auto) % (1.0-10.0) Eosinophils (%) (Auto) % (0.0-3.0) Basophils (%) (Auto) % (0.0-2.0) Differential Total Cells Counted 100 Neutrophils % (Manual) 75 % (45-75) Lymphocytes % (Manual) 8 % (20-45) L Monocytes % (Manual) 8 % (1-10) Eosinophils % (Manual) 5 % (0-3) H Basophils % (Manual) 1 % (0-2) Band Neutrophils 3 % (0-8) Platelet Estimate Decreased L Platelet Morphology Normal Anisocytosis 1+ Sodium Level 141 mEQ/L (135-145) Potassium Level 4.1 mEQ/L (3.4-4.9) Chloride Level 106 mEQ/L (98-107) Carbon Dioxide Level 24 mEQ/L (20-30) Anion Gap 11 (5-15) Blood Urea Nitrogen 29 mg/dL (7-23) H Creatinine 1.4 mg/dL (0.5-0.9) H Estimat Glomerular Filtration Rate 39.3 mL/min (>60) Glucose Level 114 mg/dL (74-106) H Calcium Level 8.0 mg/dL (8.6-10.2) L Ammonia 131 umol/L (11-51) H Height (Feet): 5 Height (Inches): 5.00 Weight (Pounds): 130 General Appearance: no apparent distress, alert, thin, other - sleepy Cardiovascular: normal rate Respiratory/Chest: other - 3LNC Abdominal Exam: site - c/d/i Diamond Smith N.P. February 25, 2017 10:38
[2017-02-25 11:18] VITALS: BP 137/76
--- NOTE | 2017-02-25 11:23 | General Progress Note ---
Assessment/Plan Problem List: (1) UTI (urinary tract infection) ICD Codes: N39.0 - Urinary tract infection, site not specified SNOMED: 55009145 Qualifiers: Qualified Codes: N30.01 - Acute cystitis with hematuria (2) Encephalopathy ICD Codes: G93.40 - Encephalopathy, unspecified SNOMED: 61793855, 112845595 (3) Liver cirrhosis ICD Codes: K74.60 - Unspecified cirrhosis of liver SNOMED: 46860932 Qualifiers: Qualified Codes: K74.60 - Unspecified cirrhosis of liver (4) Altered mental state ICD Codes: R41.82 - Altered mental status, unspecified SNOMED: 617277277, 950900254 Qualifiers: Qualified Codes: R41.82 - Altered mental status, unspecified (5) Encephalopathy, multifactorial, hepatic/septic/renal (6) Severe malnutrition ICD Codes: E43 - Unspecified severe protein-calorie malnutrition SNOMED: 30228676 (7) Psychiatric disorder ICD Codes: F99 - Mental disorder, not otherwise specified SNOMED: 12599745, 766706931 (8) SHERIE (acute kidney injury) ICD Codes: N17.9 - Acute kidney failure, unspecified SNOMED: 69120611 (9) Hypotension ICD Codes: I95.9 - Hypotension, unspecified SNOMED: 88044027 (10) Hypernatremia ICD Codes: E87.0 - Hyperosmolality and hypernatremia SNOMED: 08082921 Status: progressing Assessment/Plan MALNUTRITON RENAL INJURY AFEBRILE VITALS STABLE Subjective ROS Limited/Unobtainable: Yes Constitutional: Reports: no symptoms Allergies: Coded Allergies: PENICILLINS (Verified Allergy, Unknown, 02/10/17) Objective Last 24 Hour Vital Signs Date Time Temp Pulse Resp B/P Pulse Ox O2 Delivery O2 Flow Rate FiO2 02/25/17 11:18 96.8 76 20 137/76 95 Nasal Cannula 3.0 02/25/17 08:00 96.3 79 18 111/72 97 Nasal Cannula 3.0 02/25/17 08:00 70 02/25/17 06:36 94 Nasal Cannula 3.0 32 02/25/17 06:36 Nasal Cannula 3.0 32 02/25/17 06:13 77 122/78 02/25/17 04:26 97.5 77 18 122/78 98 Nasal Cannula 3.0 02/25/17 03:34 73 02/25/17 00:00 97.5 73 22 120/70 97 Nasal Cannula 3.0 02/24/17 23:45 75 02/24/17 22:16 67 108/74 02/24/17 20:00 95 Nasal Cannula 3.0 32 02/24/17 20:00 97.2 65 18 104/63 98 Nasal Cannula 3.0 02/24/17 20:00 Nasal Cannula 3.0 32 02/24/17 19:23 59 02/24/17 16:00 97.0 68 18 98/48 99 Nasal Cannula 3.0 02/24/17 16:00 59 02/24/17 14:00 66 99/56 02/24/17 12:00 61 02/24/17 12:00 97.0 66 18 99/56 99 Nasal Cannula 3.0 Intake and Output 02/24/17 02/25/17 19:00 07:00 Intake Total 1240 ml 1595 ml Output Total 3850 ml 1400 ml Balance -2610 ml 195 ml Free Water 160 ml 100 ml IV Total 810 ml 1140 ml Tube Feeding 270 ml 355 ml Output Urine Total 3850 ml 1400 ml # Bowel Movements 2 3 Laboratory Tests 02/24/17 16:10: Cortisol 6.1 02/25/17 03:30: White Blood Count 5.0, Red Blood Count 2.81L, Hemoglobin 9.2L, Hematocrit 27.4L , Mean Corpuscular Volume 97, Mean Corpuscular Hemoglobin 32.9H, Mean Corpuscular Hemoglobin Concent 33.7, Red Cell Distribution Width 16.4H, Platelet Count 48L, Mean Platelet Volume 8.8, Neutrophils (%) (Auto) , Lymphocytes (%) (Auto) , Monocytes (%) (Auto) , Eosinophils (%) (Auto) , Basophils (%) (Auto) , Differential Total Cells Counted 100, Neutrophils % ( Manual) 75, Lymphocytes % (Manual) 8L, Monocytes % (Manual) 8, Eosinophils % ( Manual) 5H, Basophils % (Manual) 1, Band Neutrophils 3, Platelet Estimate DecreasedL, Platelet Morphology Normal, Anisocytosis 1+, Sodium Level 141, Potassium Level 4.1, Chloride Level 106, Carbon Dioxide Level 24, Anion Gap 11, Blood Urea Nitrogen 29H, Creatinine 1.4H, Estimat Glomerular Filtration Rate 39.3, Glucose Level 114H, Calcium Level 8.0L, Ammonia 131H Height (Feet): 5 Height (Inches): 5.00 Weight (Pounds): 130 Neck: abnormal alignment Cardiovascular: normal rate Respiratory/Chest: lungs clear Abdomen: soft Mari Carrington MD February 25, 2017 11:23
--- NOTE | 2017-02-25 11:35 | Pulmonology Progress Note ---
Assessment/Plan Problems: (1) Encephalopathy (2) ATN (acute tubular necrosis) (3) Shock (4) Liver cirrhosis (5) UTI (urinary tract infection) (6) Encephalopathy, multifactorial, hepatic/septic/renal (7) Psychiatric disorder (8) Severe malnutrition Assessment/Plan VS stagble increase NS transfuse prbc prn somnolent Haldol prn vitamin K all notes, labs, meds reviewed. consider DNR and comfort care Subjective ROS Limited/Unobtainable: Yes Allergies: Coded Allergies: PENICILLINS (Verified Allergy, Unknown, 02/10/17) Objective Last 24 Hour Vital Signs Date Time Temp Pulse Resp B/P Pulse Ox O2 Delivery O2 Flow Rate FiO2 02/25/17 11:18 96.8 76 20 137/76 95 Nasal Cannula 3.0 02/25/17 08:00 96.3 79 18 111/72 97 Nasal Cannula 3.0 02/25/17 08:00 70 02/25/17 06:36 94 Nasal Cannula 3.0 32 02/25/17 06:36 Nasal Cannula 3.0 32 02/25/17 06:13 77 122/78 02/25/17 04:26 97.5 77 18 122/78 98 Nasal Cannula 3.0 02/25/17 03:34 73 02/25/17 00:00 97.5 73 22 120/70 97 Nasal Cannula 3.0 02/24/17 23:45 75 02/24/17 22:16 67 108/74 02/24/17 20:00 95 Nasal Cannula 3.0 32 02/24/17 20:00 97.2 65 18 104/63 98 Nasal Cannula 3.0 02/24/17 20:00 Nasal Cannula 3.0 32 02/24/17 19:23 59 02/24/17 16:00 97.0 68 18 98/48 99 Nasal Cannula 3.0 02/24/17 16:00 59 02/24/17 14:00 66 99/56 02/24/17 12:00 61 02/24/17 12:00 97.0 66 18 99/56 99 Nasal Cannula 3.0 Intake and Output 02/24/17 02/25/17 19:00 07:00 Intake Total 1240 ml 1595 ml Output Total 3850 ml 1400 ml Balance -2610 ml 195 ml Free Water 160 ml 100 ml IV Total 810 ml 1140 ml Tube Feeding 270 ml 355 ml Output Urine Total 3850 ml 1400 ml # Bowel Movements 2 3 Objective General Appearance: cachetic HEENT: normocephalic, atraumatic Respiratory/Chest: chest wall non-tender, lungs clear Cardiovascular: normal peripheral pulses, normal rate Abdomen: normal bowel sounds, soft, non tender, PEG Genitourinary: normal external genitalia Extremities: no cyanosis Laboratory Tests 02/24/17 16:10: Cortisol 6.1 02/25/17 03:30: White Blood Count 5.0, Red Blood Count 2.81L, Hemoglobin 9.2L, Hematocrit 27.4L , Mean Corpuscular Volume 97, Mean Corpuscular Hemoglobin 32.9H, Mean Corpuscular Hemoglobin Concent 33.7, Red Cell Distribution Width 16.4H, Platelet Count 48L, Mean Platelet Volume 8.8, Neutrophils (%) (Auto) , Lymphocytes (%) (Auto) , Monocytes (%) (Auto) , Eosinophils (%) (Auto) , Basophils (%) (Auto) , Differential Total Cells Counted 100, Neutrophils % ( Manual) 75, Lymphocytes % (Manual) 8L, Monocytes % (Manual) 8, Eosinophils % ( Manual) 5H, Basophils % (Manual) 1, Band Neutrophils 3, Platelet Estimate DecreasedL, Platelet Morphology Normal, Anisocytosis 1+, Sodium Level 141, Potassium Level 4.1, Chloride Level 106, Carbon Dioxide Level 24, Anion Gap 11, Blood Urea Nitrogen 29H, Creatinine 1.4H, Estimat Glomerular Filtration Rate 39.3, Glucose Level 114H, Calcium Level 8.0L, Ammonia 131H Current Medications Medications (Trade) Dose Ordered Sig/Gill Route PRN Reason Start Time Stop Time Status Last Admin Dose Admin Al Hydroxide/Mg Hydroxide (Mylanta II) 30 ml Q6H PRN GT dyspepsia 02/25/17 04:30 03/27/17 04:29 Aripiprazole (Abilify) 10 mg DAILY GT 02/25/17 09:00 03/27/17 08:59 02/25/17 09:07 Aztreonam 2 gm/ Dextrose 110 ml @ 220 mls/hr Q8H IVPB 02/23/17 19:00 03/02/17 18:59 02/25/17 11:10 Chlorhexidine Gluconate 1 applic 1 applic DAILY TOPIC 02/24/17 15:00 03/26/17 14:59 02/25/17 09:09 Clindamycin HCl/ Dextrose 50 ml @ 100 mls/hr Q8H IV 02/23/17 18:00 03/02/17 17:59 02/25/17 09:48 Dextrose (Dextrose 50%) STAT PRN IV Hypoglycemia 02/23/17 16:30 03/25/17 16:29 Fluconazole/ Sodium Chloride (Diflucan 200mg/ 100ml Premix) 100 ml @ 100 mls/hr Q24H IV 02/24/17 13:00 02/27/17 12:59 02/24/17 16:28 Lactulose (Cephulac) 30 gm Q6HR GT 02/25/17 06:00 03/27/17 05:59 Lansoprazole (Prevacid) 30 mg ACBREAKFAST GT 02/25/17 06:30 03/27/17 06:29 02/25/17 06:14 Lorazepam (Ativan 2mg/ml 1ml) 1 mg Q4H PRN IV For Anxiety 02/23/17 16:30 03/02/17 16:29 02/23/17 17:10 Morphine Sulfate (Morphine Sulfate) 2 mg Q4H PRN IVP SEVERE PAIN 02/23/17 16:30 03/02/17 16:29 02/24/17 10:33 Ondansetron HCl (Zofran) 4 mg Q6H PRN IVP Nausea & Vomiting 02/23/17 16:30 03/25/17 16:29 Propranolol HCl (Inderal) 10 mg Q8HR GT 02/25/17 06:00 03/27/17 05:59 02/25/17 06:13 Quetiapine Fumarate (SEROquel) 100 mg QHS GT 02/25/17 21:00 03/27/17 20:59 Rifaximin (Xifaxan) 550 mg EVERY 12 HOURS GT 02/25/17 09:00 03/04/17 08:59 02/25/17 09:08 Sodium Chloride (0.45% NS 1000ml) 1,000 ml @ 50 mls/hr Q20H IV 02/24/17 16:30 03/26/17 16:29 02/24/17 16:29 Valproic Acid (Depakene) 500 mg Q12HR GT 02/23/17 21:00 03/25/17 20:59 02/25/17 09:07 MANFRED YING February 25, 2017 11:35
--- NOTE | 2017-02-25 13:43 | Cardiac Electrophysiology PN ---
Assessment/Plan Assessment/Plan 1. Hypotension, due to volume depletion, anemia and sepsis. Better after IV fluid and blood transfusion 2. Sinus tachycardia due to sepsis. No fib or SVT. Better on abx and Inderal. Ruled out for DE. 3. Schizophrenia, on Haldol. 4. Cirrhosis of the liver, on lactulose, Inderal and Xifaxan 5. Dysphagia. S/P PEG 02/22/17. 6. Agitation. 7. ARF, Creatinine 1.4 today. 8. Thrombocytopenia and anemia, S/P PRBC and platelet transfusion. WALE RN. Subjective Subjective Nonverbal.Feeding via PEG. No new events overnight. Objective Last 24 Hour Vital Signs Date Time Temp Pulse Resp B/P Pulse Ox O2 Delivery O2 Flow Rate FiO2 02/25/17 11:18 96.8 76 20 137/76 95 Nasal Cannula 3.0 02/25/17 08:00 96.3 79 18 111/72 97 Nasal Cannula 3.0 02/25/17 08:00 70 02/25/17 06:36 94 Nasal Cannula 3.0 32 02/25/17 06:36 Nasal Cannula 3.0 32 02/25/17 06:13 77 122/78 02/25/17 04:26 97.5 77 18 122/78 98 Nasal Cannula 3.0 02/25/17 03:34 73 02/25/17 00:00 97.5 73 22 120/70 97 Nasal Cannula 3.0 02/24/17 23:45 75 02/24/17 22:16 67 108/74 02/24/17 20:00 95 Nasal Cannula 3.0 32 02/24/17 20:00 97.2 65 18 104/63 98 Nasal Cannula 3.0 02/24/17 20:00 Nasal Cannula 3.0 32 02/24/17 19:23 59 02/24/17 16:00 97.0 68 18 98/48 99 Nasal Cannula 3.0 02/24/17 16:00 59 02/24/17 14:00 66 99/56 Intake and Output 02/24/17 02/25/17 19:00 07:00 Intake Total 1240 ml 1595 ml Output Total 3850 ml 1400 ml Balance -2610 ml 195 ml Free Water 160 ml 100 ml IV Total 810 ml 1140 ml Tube Feeding 270 ml 355 ml Output Urine Total 3850 ml 1400 ml # Bowel Movements 2 3 Laboratory Tests Test 02/24/17 16:10 02/25/17 03:30 Cortisol 6.1 ug/dL (.) White Blood Count 5.0 K/UL (4.8-10.8) Red Blood Count 2.81 M/UL (4.20-5.40) L Hemoglobin 9.2 G/DL (12.0-16.0) L Hematocrit 27.4 % (37.0-47.0) L Mean Corpuscular Volume 97 FL (80-99) Mean Corpuscular Hemoglobin 32.9 PG (27.0-31.0) H Mean Corpuscular Hemoglobin Concent 33.7 G/DL (32.0-36.0) Red Cell Distribution Width 16.4 % (11.6-14.8) H Platelet Count 48 K/UL (150-450) L Mean Platelet Volume 8.8 FL (6.5-10.1) Neutrophils (%) (Auto) % (45.0-75.0) Lymphocytes (%) (Auto) % (20.0-45.0) Monocytes (%) (Auto) % (1.0-10.0) Eosinophils (%) (Auto) % (0.0-3.0) Basophils (%) (Auto) % (0.0-2.0) Differential Total Cells Counted 100 Neutrophils % (Manual) 75 % (45-75) Lymphocytes % (Manual) 8 % (20-45) L Monocytes % (Manual) 8 % (1-10) Eosinophils % (Manual) 5 % (0-3) H Basophils % (Manual) 1 % (0-2) Band Neutrophils 3 % (0-8) Platelet Estimate Decreased L Platelet Morphology Normal Anisocytosis 1+ Sodium Level 141 mEQ/L (135-145) Potassium Level 4.1 mEQ/L (3.4-4.9) Chloride Level 106 mEQ/L (98-107) Carbon Dioxide Level 24 mEQ/L (20-30) Anion Gap 11 (5-15) Blood Urea Nitrogen 29 mg/dL (7-23) H Creatinine 1.4 mg/dL (0.5-0.9) H Estimat Glomerular Filtration Rate 39.3 mL/min (>60) Glucose Level 114 mg/dL (74-106) H Calcium Level 8.0 mg/dL (8.6-10.2) L Ammonia 131 umol/L (11-51) H Objective HEAD AND NECK: No JVD. LUNGS: Coarse rhonchi CARDIOVASCULAR: Regular S1 and S2 with no gallop or murmur. ABDOMEN: soft.PEG in place. EXTREMITIES: 1+ pitting edema. ELIUD LALA February 25, 2017 13:43
--- NOTE | 2017-02-25 14:32 | Infectious Diseases Prog Note ---
Assessment/Plan Problems: (1) Aspiration of blood Assessment & Plan: possible pneumonia , on clindamycin with aztreonam empirically for 7 days (2) Hypotension Assessment & Plan: recurrent , anemia VS sepsis, repeated blood culture is pending , continue aztreonam and clindamycin for now (3) Candiduria Assessment & Plan: continue fluconazole for two weeks, had renal US recently didn't show any stones as a source , laguerre catheter was changed. (4) Encephalopathy, multifactorial, hepatic/septic/renal Assessment & Plan: with elevated ammonia level, continue lactulose, neurology is following (5) Liver cirrhosis Assessment & Plan: with negative hepatitis panel, continue supportive care, avoid hepatotoxic meds, consult GI (6) Severe malnutrition Assessment & Plan: with dysphagia, had PEG tube today by GI, further recommendations as per GI (7) Upper GI hemorrhage Assessment & Plan: rule out esophageal bleeding, recommend EGD, monitor H/H , transfuse blood as needed (8) SHERIE (acute kidney injury) Assessment & Plan: due to hypotension, recommend fluids boluses and hydration, to keep SBP above 100, will order cortison level Subjective ROS Limited/Unobtainable: Yes Allergies: Coded Allergies: PENICILLINS (Verified Allergy, Unknown, 02/10/17) Subjective she is still altered , and confused , open eyes spontaneously, dosen't follow commands . afebrile Objective Vital Signs Last 24 Hour Vital Signs Date Time Temp Pulse Resp B/P Pulse Ox O2 Delivery O2 Flow Rate FiO2 02/25/17 14:01 76 137/76 02/25/17 11:18 96.8 76 20 137/76 95 Nasal Cannula 3.0 02/25/17 08:00 96.3 79 18 111/72 97 Nasal Cannula 3.0 02/25/17 08:00 70 02/25/17 06:36 94 Nasal Cannula 3.0 32 02/25/17 06:36 Nasal Cannula 3.0 32 02/25/17 06:13 77 122/78 02/25/17 04:26 97.5 77 18 122/78 98 Nasal Cannula 3.0 02/25/17 03:34 73 02/25/17 00:00 97.5 73 22 120/70 97 Nasal Cannula 3.0 02/24/17 23:45 75 02/24/17 22:16 67 108/74 02/24/17 20:00 95 Nasal Cannula 3.0 32 02/24/17 20:00 97.2 65 18 104/63 98 Nasal Cannula 3.0 02/24/17 20:00 Nasal Cannula 3.0 32 02/24/17 19:23 59 02/24/17 16:00 97.0 68 18 98/48 99 Nasal Cannula 3.0 02/24/17 16:00 59 Height (Feet): 5 Height (Inches): 5.00 Weight (Pounds): 130 General Appearance: WD/WN, no acute distress HEENT: normocephalic, atraumatic, anicteric, PERRL Respiratory/Chest: chest wall non-tender, no respiratory distress, no accessory muscle use, decreased breath sounds, crackles/rales Cardiovascular: normal peripheral pulses, normal rate, regular rhythm, no gallop/murmur Abdomen: normal bowel sounds, soft, non tender, no organomegaly, non distended , no mass, no scars Extremities: no cyanosis, no clubbing Laboratory Tests Test 02/24/17 16:10 02/25/17 03:30 Cortisol 6.1 ug/dL (.) White Blood Count 5.0 K/UL (4.8-10.8) Red Blood Count 2.81 M/UL (4.20-5.40) L Hemoglobin 9.2 G/DL (12.0-16.0) L Hematocrit 27.4 % (37.0-47.0) L Mean Corpuscular Volume 97 FL (80-99) Mean Corpuscular Hemoglobin 32.9 PG (27.0-31.0) H Mean Corpuscular Hemoglobin Concent 33.7 G/DL (32.0-36.0) Red Cell Distribution Width 16.4 % (11.6-14.8) H Platelet Count 48 K/UL (150-450) L Mean Platelet Volume 8.8 FL (6.5-10.1) Neutrophils (%) (Auto) % (45.0-75.0) Lymphocytes (%) (Auto) % (20.0-45.0) Monocytes (%) (Auto) % (1.0-10.0) Eosinophils (%) (Auto) % (0.0-3.0) Basophils (%) (Auto) % (0.0-2.0) Differential Total Cells Counted 100 Neutrophils % (Manual) 75 % (45-75) Lymphocytes % (Manual) 8 % (20-45) L Monocytes % (Manual) 8 % (1-10) Eosinophils % (Manual) 5 % (0-3) H Basophils % (Manual) 1 % (0-2) Band Neutrophils 3 % (0-8) Platelet Estimate Decreased L Platelet Morphology Normal Anisocytosis 1+ Sodium Level 141 mEQ/L (135-145) Potassium Level 4.1 mEQ/L (3.4-4.9) Chloride Level 106 mEQ/L (98-107) Carbon Dioxide Level 24 mEQ/L (20-30) Anion Gap 11 (5-15) Blood Urea Nitrogen 29 mg/dL (7-23) H Creatinine 1.4 mg/dL (0.5-0.9) H Estimat Glomerular Filtration Rate 39.3 mL/min (>60) Glucose Level 114 mg/dL (74-106) H Calcium Level 8.0 mg/dL (8.6-10.2) L Ammonia 131 umol/L (11-51) H Current Medications Medications (Trade) Dose Ordered Sig/Gill Route PRN Reason Start Time Stop Time Status Last Admin Dose Admin Al Hydroxide/Mg Hydroxide (Mylanta II) 30 ml Q6H PRN GT dyspepsia 02/25/17 04:30 03/27/17 04:29 Aripiprazole (Abilify) 10 mg DAILY GT 02/25/17 09:00 03/27/17 08:59 02/25/17 09:07 Aztreonam 2 gm/ Dextrose 110 ml @ 220 mls/hr Q8H IVPB 02/23/17 19:00 03/02/17 18:59 02/25/17 11:10 Chlorhexidine Gluconate 1 applic 1 applic DAILY TOPIC 02/24/17 15:00 03/26/17 14:59 02/25/17 09:09 Clindamycin HCl/ Dextrose 50 ml @ 100 mls/hr Q8H IV 02/23/17 18:00 03/02/17 17:59 02/25/17 09:48 Dextrose (Dextrose 50%) STAT PRN IV Hypoglycemia 02/23/17 16:30 03/25/17 16:29 Fluconazole/ Sodium Chloride (Diflucan 200mg/ 100ml Premix) 100 ml @ 100 mls/hr Q24H IV 02/24/17 13:00 02/27/17 12:59 02/25/17 14:00 Lactulose (Cephulac) 30 gm Q6HR GT 02/25/17 06:00 03/27/17 05:59 02/25/17 14:00 Lansoprazole (Prevacid) 30 mg ACBREAKFAST GT 02/25/17 06:30 03/27/17 06:29 02/25/17 06:14 Lorazepam (Ativan 2mg/ml 1ml) 1 mg Q4H PRN IV For Anxiety 02/23/17 16:30 03/02/17 16:29 02/23/17 17:10 Morphine Sulfate (Morphine Sulfate) 2 mg Q4H PRN IVP SEVERE PAIN 02/23/17 16:30 03/02/17 16:29 02/24/17 10:33 Ondansetron HCl (Zofran) 4 mg Q6H PRN IVP Nausea & Vomiting 02/23/17 16:30 03/25/17 16:29 Propranolol HCl (Inderal) 10 mg Q8HR GT 02/25/17 06:00 03/27/17 05:59 02/25/17 14:01 Quetiapine Fumarate (SEROquel) 100 mg QHS GT 02/25/17 21:00 03/27/17 20:59 Rifaximin (Xifaxan) 550 mg EVERY 12 HOURS GT 02/25/17 09:00 03/04/17 08:59 02/25/17 09:08 Sodium Chloride (0.45% NS 1000ml) 1,000 ml @ 50 mls/hr Q20H IV 02/24/17 16:30 03/26/17 16:29 02/25/17 14:01 Valproic Acid (Depakene) 500 mg Q12HR GT 02/23/17 21:00 03/25/17 20:59 02/25/17 09:07 Pura Klein M.D. February 25, 2017 14:32
[2017-02-25 16:07] VITALS: BP 135/63
--- NOTE | 2017-02-25 17:10 | Neurology Progress Note ---
Interim History Interim History ROS Limited/Unobtainable: Yes Complaints: nonverbal Events: intermittent agitation shouting,screaming noncommunicating Objective Physical Exam Last Vital Signs Date Time Temp Pulse Resp B/P Pulse Ox O2 Delivery O2 Flow Rate FiO2 02/25/17 16:17 69 02/25/17 16:07 96.6 20 135/63 96 Nasal Cannula 3.0 02/25/17 06:36 32 Laboratory Tests Test 02/25/17 03:30 White Blood Count 5.0 K/UL (4.8-10.8) Red Blood Count 2.81 M/UL (4.20-5.40) L Hemoglobin 9.2 G/DL (12.0-16.0) L Hematocrit 27.4 % (37.0-47.0) L Mean Corpuscular Volume 97 FL (80-99) Mean Corpuscular Hemoglobin 32.9 PG (27.0-31.0) H Mean Corpuscular Hemoglobin Concent 33.7 G/DL (32.0-36.0) Red Cell Distribution Width 16.4 % (11.6-14.8) H Platelet Count 48 K/UL (150-450) L Mean Platelet Volume 8.8 FL (6.5-10.1) Neutrophils (%) (Auto) % (45.0-75.0) Lymphocytes (%) (Auto) % (20.0-45.0) Monocytes (%) (Auto) % (1.0-10.0) Eosinophils (%) (Auto) % (0.0-3.0) Basophils (%) (Auto) % (0.0-2.0) Differential Total Cells Counted 100 Neutrophils % (Manual) 75 % (45-75) Lymphocytes % (Manual) 8 % (20-45) L Monocytes % (Manual) 8 % (1-10) Eosinophils % (Manual) 5 % (0-3) H Basophils % (Manual) 1 % (0-2) Band Neutrophils 3 % (0-8) Platelet Estimate Decreased L Platelet Morphology Normal Anisocytosis 1+ Sodium Level 141 mEQ/L (135-145) Potassium Level 4.1 mEQ/L (3.4-4.9) Chloride Level 106 mEQ/L (98-107) Carbon Dioxide Level 24 mEQ/L (20-30) Anion Gap 11 (5-15) Blood Urea Nitrogen 29 mg/dL (7-23) H Creatinine 1.4 mg/dL (0.5-0.9) H Estimat Glomerular Filtration Rate 39.3 mL/min (>60) Glucose Level 114 mg/dL (74-106) H Calcium Level 8.0 mg/dL (8.6-10.2) L Ammonia 131 umol/L (11-51) H General: well developed, other - illappearing,moth open shouting Head: normocophalic, atraumatic Neck: no rigidity Neurologic Exam Mental Status: awake, other - no eye contact not following command Speech: other - nonverbal Language: other Cranial Nerve II: other Cranial Nerves III, IV, : pupils - 6mm sluggish responce to light Cranial Nerve V: other Cranial Nerve VII: no facial asymmetry Cranial Nerve VIII: no nystagmus Cranial Nerve IX: other - no gag on G tube Cranial Nerve XI: trapezii function normal Cranial Nerve XII: no tongue atrophy/fasciculations Motor System: no involuntary movement, other - diffuse rigidity Sensory: other Coordination: other Deep Tendon Reflexes: 0 ankle (L), 0 ankle (R), 0 bicep (L), 0 bicep (R), 0 brachioradialis (L), 0 brachioradialis (R), 0 knee (L), 0 knee (R), 0 tricep (L) , 0 tricep (R) Reflexes: mute plantar (L), mute plantar (R) Impression/Recommendations Problems: (1) Encephalopathy, multifactorial, hepatic/septic/renal (2) Liver cirrhosis (3) UTI (urinary tract infection) Status: progressing, unchanged Recommendations #[id number] CT brain EEG d/c depakote LFT/ valproic Levels psych JOHN Montanez February 25, 2017 17:10
[2017-02-25 18:15] LABS: VALPROIC ACID 62 ug/mL (50-100)
[2017-02-25] MEDS: LORazepam Inj 2mg/ml 1ml IV PRN (19:56)
[2017-02-25 20:00] VITALS: BP 127/67
--- NOTE | 2017-02-25 20:38 | Nephrology Progress Note ---
Assessment/Plan Problem List: (1) SHERIE (acute kidney injury) (2) Hypotension (3) Hypernatremia Assessment: improving. (4) Shock (5) Psychiatric disorder (6) Encephalopathy, multifactorial, hepatic/septic/renal (7) UTI (urinary tract infection) Plan S/p G-tube placement, feeding per GI s/p transfusion, monitor H&H, transfuse PRN Monitor neuro status Monitor lytes, correct PRN Monitor renal function Continue IVF AM labs Subjective ROS Limited/Unobtainable: Yes Subjective In no apparent distress. Objective Objective Last 24 Hour Vital Signs Date Time Temp Pulse Resp B/P Pulse Ox O2 Delivery O2 Flow Rate FiO2 02/25/17 20:00 96.6 82 20 127/67 96 Nasal Cannula 3.0 02/25/17 19:41 96 Nasal Cannula 3.0 32 02/25/17 19:41 Nasal Cannula 3.0 32 02/25/17 16:17 69 02/25/17 16:07 96.6 73 20 135/63 96 Nasal Cannula 3.0 02/25/17 14:01 76 137/76 02/25/17 12:00 71 02/25/17 11:18 96.8 76 20 137/76 95 Nasal Cannula 3.0 02/25/17 08:00 96.3 79 18 111/72 97 Nasal Cannula 3.0 02/25/17 08:00 70 02/25/17 06:36 94 Nasal Cannula 3.0 32 02/25/17 06:36 Nasal Cannula 3.0 32 02/25/17 06:13 77 122/78 02/25/17 04:26 97.5 77 18 122/78 98 Nasal Cannula 3.0 02/25/17 03:34 73 02/25/17 00:00 97.5 73 22 120/70 97 Nasal Cannula 3.0 02/24/17 23:45 75 02/24/17 22:16 67 108/74 Intake and Output 02/24/17 02/25/17 19:00 07:00 Intake Total 1240 ml 1645 ml Output Total 3850 ml 1400 ml Balance -2610 ml 245 ml Free Water 160 ml 100 ml IV Total 810 ml 1190 ml Tube Feeding 270 ml 355 ml Output Urine Total 3850 ml 1400 ml # Bowel Movements 2 3 Laboratory Tests 02/25/17 03:30: White Blood Count 5.0, Red Blood Count 2.81L, Hemoglobin 9.2L, Hematocrit 27.4L , Mean Corpuscular Volume 97, Mean Corpuscular Hemoglobin 32.9H, Mean Corpuscular Hemoglobin Concent 33.7, Red Cell Distribution Width 16.4H, Platelet Count 48L, Mean Platelet Volume 8.8, Neutrophils (%) (Auto) , Lymphocytes (%) (Auto) , Monocytes (%) (Auto) , Eosinophils (%) (Auto) , Basophils (%) (Auto) , Differential Total Cells Counted 100, Neutrophils % ( Manual) 75, Lymphocytes % (Manual) 8L, Monocytes % (Manual) 8, Eosinophils % ( Manual) 5H, Basophils % (Manual) 1, Band Neutrophils 3, Platelet Estimate DecreasedL, Platelet Morphology Normal, Anisocytosis 1+, Sodium Level 141, Potassium Level 4.1, Chloride Level 106, Carbon Dioxide Level 24, Anion Gap 11, Blood Urea Nitrogen 29H, Creatinine 1.4H, Estimat Glomerular Filtration Rate 39.3, Glucose Level 114H, Calcium Level 8.0L, Ammonia 131H 02/25/17 05:00: Vitamin B12 Level 1751H, Valproic Acid (Depakene) Level 62 Height (Feet): 5 Height (Inches): 5.00 Weight (Pounds): 130 General Appearance: no apparent distress Neck: non-tender, normal alignment Cardiovascular: normal rate Respiratory/Chest: normal breath sounds, no respiratory distress Abdomen: soft, other - PEG Genitourinary/Rectal: other - BANEGAS Extremities: non-tender Neurologic: disoriented PATRICK ENRIQUEZ February 25, 2017 20:38
[2017-02-26] VITALS (8 sets, daily range): BP systolic 123–140; BP diastolic 66–79
[2017-02-26] MEDS: Lactulose 20gm/30ml UDC GT SCH ×4 (00:51→18:00)
[2017-02-26] MEDS: Clindamycin 600mg 50 ML IV SCH ×3 (02:00→17:34)
[2017-02-26] MEDS: Aztreonam Inj 2 GM in D5W 110 ML IVPB SCH ×3 (02:46→18:56)
[2017-02-26 04:14] LABS: MEAN CORPUSCULAR HEMOGLOBIN 32.8 PG (27.0-31.0); MEAN CORPUSCULAR HGB CONC 33.9 G/DL (32.0-36.0); MEAN CORPUSCULAR VOLUME 97 FL (80-99); PLATELET COUNT 52 K/UL (150-450); RED BLOOD COUNT 2.76 M/UL (4.20-5.40); RED CELL DISTRIBUTION WIDTH 16.4 % (11.6-14.8); WHITE BLOOD COUNT 4.3 K/UL (4.8-10.8)
[2017-02-26 04:33] LABS: CREATININE 1.6 mg/dL (0.5-0.9); GLOMERULAR FILTRATION RATE 33.7 mL/min (>60); POTASSIUM 3.5 mEQ/L (3.4-4.9)
[2017-02-26] MEDS: Dyna-Hex 2% Top Sol 8oz TOPIC SCH ×2 (05:10→09:11)
[2017-02-26] MEDS: Propranolol 10mg tab GT SCH ×3 (06:02→21:20)
[2017-02-26 08:22] LABS: ABG ALLEN TEST POSITIVE; ABG PCO2 31.8 mmHg (35.0-45.0)
[2017-02-26] MEDS: ARIPiprazole 10mg tab GT SCH (09:10)
[2017-02-26] MEDS: Rifaximin 550mg tab GT SCH ×2 (09:10→20:40)
[2017-02-26] MEDS: Valproic Acid 250mg/5ml Liquid GT SCH ×2 (09:11→20:41)
--- NOTE | 2017-02-26 10:16 | Pulmonology Progress Note ---
Assessment/Plan Assessment/Plan ASSESSMENT acute hypoxemic respiratory failure sepsis septic shock-resolved UTI/Staph aureus, Kaushik GI hemorrhage, possibly due to esophageal varices aspiration of blood, possible aspiration PNA hypotension ARF on CKD acute toxic metabolic encephalopathy cholelithiasis possible choledocholithiasis anemia s/p blood transfusion dysphagia s.p PEG . liver cirrhosis coagulopathy chronic psychiatric disorder /schizophrenia severe R knee OA severe protein calorie malnutrition PLAN OF CARE JG status of pressors ( was on short time) BP remains stable hypotension was likely due to volume depletion, anemia and sepsis, better after transfusion ECHO with EF 55% and RVSP of 32 VM and titrate Fio2 to keep sat above 92% ABG done stat with evidence of hypoxemia, no acidosis pulmonary toilet prn fup with CXR today ( prior negative) venous Duplex BLE negative ? cause of hypoxemia - possible aspiration PNA GI follows s/p PEG Strict aspiration precautions GT feeding, monitor tolerance GI prophylaxis hepatitis panel negative monitor ammonia level, continue Rifaximin and Lactulose monitor LFT urine tox screen negative abdominal US with evidence of cholelithiasics and possible choledocholithiasis, recommended ERCP ; per GI not stable for procedure monitor HH transfuse prn, at baseline after transfusion stool OB negative continue Inderal abx, ID follows initial urine cx + Staph aureus, repeated + kaushik, blood cx negative nephro follows renal US c/w medical renal disease ARF likely partly due to dehydration monitor renal parameters, lytes avoid nephrotoxic neuro follows per neuro acute toxic metabolic encephalopathy multifactorial due to sepsis, renal failure, hepatic failure CT head EEG seizure precautions, Depakote level therapeutic ortho seen the patient X ray R knee reviewed patient with severe OA R knee and will eventually need TKR when medically optimized at this time recommended hinge brace and pain management continue psych meds consider psych eval consider comfort care case discussed and evaluated by supervising physician Subjective Allergies: Coded Allergies: PENICILLINS (Verified Allergy, Unknown, 02/10/17) Subjective desaturated earlier this am, placed on VM 55% afebrile, no leukocytosis per nurse bloody secretions when suctioning, no active bleeding Objective Last 24 Hour Vital Signs Date Time Temp Pulse Resp B/P Pulse Ox O2 Delivery O2 Flow Rate FiO2 02/26/17 07:51 95.9 80 19 140/71 90 Venturi Mask 15.0 02/26/17 06:02 78 128/66 02/26/17 04:00 78 02/26/17 04:00 97.3 78 19 128/66 96 Nasal Cannula 3.0 02/26/17 00:00 97.5 69 19 123/67 96 Nasal Cannula 3.0 02/25/17 23:55 69 02/25/17 21:32 82 127/67 02/25/17 20:00 96.6 82 20 127/67 96 Nasal Cannula 3.0 02/25/17 19:41 96 Nasal Cannula 3.0 32 02/25/17 19:41 Nasal Cannula 3.0 32 02/25/17 18:51 81 02/25/17 16:17 69 02/25/17 16:07 96.6 73 20 135/63 96 Nasal Cannula 3.0 02/25/17 14:01 76 137/76 02/25/17 12:00 71 02/25/17 11:18 96.8 76 20 137/76 95 Nasal Cannula 3.0 Intake and Output 02/25/17 02/26/17 19:00 07:00 Intake Total 1260 ml 1610 ml Output Total 1100 ml 1500 ml Balance 160 ml 110 ml Free Water 100 ml 200 ml IV Total 810 ml 870 ml Tube Feeding 350 ml 540 ml Output Urine Total 1100 ml 1500 ml # Bowel Movements 3 3 General Appearance: no acute distress, other - bedridden somnolent HEENT: normocephalic, atraumatic, no JVD, other - VM 55% Respiratory/Chest: lungs clear - with mdoerate air entry Cardiovascular: normal rate, regular rhythm, no JVD Abdomen: normal bowel sounds, soft, non tender, other - G tube Neurologic/Psychiatric: abnormal gait, other - somnolent, R side paresis Musculoskeletal: atrophy - BLE Microbiology Date/Time Source Procedure Growth Status 02/24/17 16:25 Blood Blood Culture - Preliminary NO GROWTH AFTER 24 HOURS Resulted 02/24/17 16:15 Blood Blood Culture - Preliminary NO GROWTH AFTER 24 HOURS Resulted Laboratory Tests 02/26/17 04:00: White Blood Count 4.3L, Red Blood Count 2.76L, Hemoglobin 9.0L, Hematocrit 26.7L , Mean Corpuscular Volume 97, Mean Corpuscular Hemoglobin 32.8H, Mean Corpuscular Hemoglobin Concent 33.9, Red Cell Distribution Width 16.4H, Platelet Count 52L, Mean Platelet Volume 8.0, Neutrophils (%) (Auto) , Lymphocytes (%) (Auto) , Monocytes (%) (Auto) , Eosinophils (%) (Auto) , Basophils (%) (Auto) , Sodium Level 142, Potassium Level 3.5, Chloride Level 106 , Carbon Dioxide Level 23, Anion Gap 13, Blood Urea Nitrogen 29H, Creatinine 1.6H, Estimat Glomerular Filtration Rate 33.7, Glucose Level 114H, Calcium Level 8.0L, Ammonia 58H 02/26/17 08:12: Arterial Blood pH 7.440, Arterial Blood Partial Pressure CO2 31.8L, Arterial Blood Partial Pressure O2 60.1L, Arterial Blood HCO3 21.4L, Arterial Blood Oxygen Saturation 88.8L, Arterial Blood Base Excess -2.0, Harley Test Positive Current Medications Medications (Trade) Dose Ordered Sig/Gill Route PRN Reason Start Time Stop Time Status Last Admin Dose Admin Al Hydroxide/Mg Hydroxide (Mylanta II) 30 ml Q6H PRN GT dyspepsia 02/25/17 04:30 03/27/17 04:29 Aripiprazole (Abilify) 10 mg DAILY GT 02/25/17 09:00 03/27/17 08:59 02/26/17 09:10 Aztreonam 2 gm/ Dextrose 110 ml @ 220 mls/hr Q8H IVPB 02/23/17 19:00 03/02/17 18:59 02/26/17 02:46 Chlorhexidine Gluconate 1 applic 1 applic DAILY TOPIC 02/24/17 15:00 03/26/17 14:59 02/26/17 09:11 Clindamycin HCl/ Dextrose 50 ml @ 100 mls/hr Q8H IV 02/23/17 18:00 03/02/17 17:59 02/26/17 02:00 Dextrose (Dextrose 50%) STAT PRN IV Hypoglycemia 02/23/17 16:30 03/25/17 16:29 Fluconazole/ Sodium Chloride (Diflucan 200mg/ 100ml Premix) 100 ml @ 100 mls/hr Q24H IV 02/24/17 13:00 02/27/17 12:59 02/25/17 14:00 Lactulose (Cephulac) 30 gm Q6HR GT 02/25/17 06:00 03/27/17 05:59 02/26/17 06:02 Lansoprazole (Prevacid) 30 mg ACBREAKFAST GT 02/25/17 06:30 03/27/17 06:29 02/26/17 06:02 Lorazepam (Ativan 2mg/ml 1ml) 1 mg Q4H PRN IV For Anxiety 02/23/17 16:30 03/02/17 16:29 02/25/17 19:56 Morphine Sulfate (Morphine Sulfate) 2 mg Q4H PRN IVP SEVERE PAIN 02/23/17 16:30 03/02/17 16:29 02/24/17 10:33 Ondansetron HCl (Zofran) 4 mg Q6H PRN IVP Nausea & Vomiting 02/23/17 16:30 03/25/17 16:29 Propranolol HCl (Inderal) 10 mg Q8HR GT 02/25/17 06:00 03/27/17 05:59 02/26/17 06:02 Quetiapine Fumarate (SEROquel) 100 mg QHS GT 02/25/17 21:00 03/27/17 20:59 02/25/17 21:32 Rifaximin (Xifaxan) 550 mg EVERY 12 HOURS GT 02/25/17 09:00 03/04/17 08:59 02/26/17 09:10 Sodium Chloride (0.45% NS 1000ml) 1,000 ml @ 50 mls/hr Q20H IV 02/24/17 16:30 03/26/17 16:29 02/26/17 09:10 Valproic Acid (Depakene) 500 mg Q12HR GT 02/23/17 21:00 03/25/17 20:59 02/26/17 09:11 [facility]Que[facility] CenterEarlene Hart NP February 26, 2017 10:15
[2017-02-26] MEDS ORDERED: NS 275ml ONE (10:20)
[2017-02-26] MEDS ORDERED: Tubing IV Secondary IV ONE (10:20)
[2017-02-26] MEDS ORDERED: 1/2 NS 1000ml IV ONE (10:20)
--- NOTE | 2017-02-26 11:14 | General Progress Note ---
Assessment/Plan Problem List: (1) Liver cirrhosis ICD Codes: K74.60 - Unspecified cirrhosis of liver SNOMED: 66319349 Qualifiers: Qualified Codes: K74.60 - Unspecified cirrhosis of liver (2) Encephalopathy ICD Codes: G93.40 - Encephalopathy, unspecified SNOMED: 32817533, 253542965 (3) UTI (urinary tract infection) ICD Codes: N39.0 - Urinary tract infection, site not specified SNOMED: 68852948 Qualifiers: Qualified Codes: N30.01 - Acute cystitis with hematuria (4) Psychiatric disorder ICD Codes: F99 - Mental disorder, not otherwise specified SNOMED: 24089450, 292188861 (5) Choledocholithiasis ICD Codes: K80.50 - Calculus of bile duct without cholangitis or cholecystitis without obstruction SNOMED: 669588692 (6) Cholelithiasis ICD Codes: K80.20 - Calculus of gallbladder without cholecystitis without obstruction SNOMED: 730487094 Assessment/Plan lactulose and xifaxan GTF fu labs supportive care fu LFTS hold ERCP at this time Subjective ROS Limited/Unobtainable: No Allergies: Coded Allergies: PENICILLINS (Verified Allergy, Unknown, 02/10/17) Objective Last 24 Hour Vital Signs Date Time Temp Pulse Resp B/P Pulse Ox O2 Delivery O2 Flow Rate FiO2 02/26/17 10:19 81 02/26/17 07:51 95.9 80 19 140/71 90 Venturi Mask 15.0 02/26/17 06:02 78 128/66 02/26/17 04:00 78 02/26/17 04:00 97.3 78 19 128/66 96 Nasal Cannula 3.0 02/26/17 00:00 97.5 69 19 123/67 96 Nasal Cannula 3.0 02/25/17 23:55 69 02/25/17 21:32 82 127/67 02/25/17 20:00 96.6 82 20 127/67 96 Nasal Cannula 3.0 02/25/17 19:41 96 Nasal Cannula 3.0 32 02/25/17 19:41 Nasal Cannula 3.0 32 02/25/17 18:51 81 02/25/17 16:17 69 02/25/17 16:07 96.6 73 20 135/63 96 Nasal Cannula 3.0 02/25/17 14:01 76 137/76 02/25/17 12:00 71 02/25/17 11:18 96.8 76 20 137/76 95 Nasal Cannula 3.0 Intake and Output 02/25/17 02/26/17 19:00 07:00 Intake Total 1260 ml 1610 ml Output Total 1100 ml 1500 ml Balance 160 ml 110 ml Free Water 100 ml 200 ml IV Total 810 ml 870 ml Tube Feeding 350 ml 540 ml Output Urine Total 1100 ml 1500 ml # Bowel Movements 3 3 Laboratory Tests 02/26/17 04:00: White Blood Count 4.3L, Red Blood Count 2.76L, Hemoglobin 9.0L, Hematocrit 26.7L , Mean Corpuscular Volume 97, Mean Corpuscular Hemoglobin 32.8H, Mean Corpuscular Hemoglobin Concent 33.9, Red Cell Distribution Width 16.4H, Platelet Count 52L, Mean Platelet Volume 8.0, Neutrophils (%) (Auto) , Lymphocytes (%) (Auto) , Monocytes (%) (Auto) , Eosinophils (%) (Auto) , Basophils (%) (Auto) , Sodium Level 142, Potassium Level 3.5, Chloride Level 106 , Carbon Dioxide Level 23, Anion Gap 13, Blood Urea Nitrogen 29H, Creatinine 1.6H, Estimat Glomerular Filtration Rate 33.7, Glucose Level 114H, Calcium Level 8.0L, Ammonia 58H 02/26/17 08:12: Arterial Blood pH 7.440, Arterial Blood Partial Pressure CO2 31.8L, Arterial Blood Partial Pressure O2 60.1L, Arterial Blood HCO3 21.4L, Arterial Blood Oxygen Saturation 88.8L, Arterial Blood Base Excess -2.0, Harley Test Positive Height (Feet): 5 Height (Inches): 5.00 Weight (Pounds): 130 General Appearance: lethargic EENT: normal ENT inspection Neck: supple Cardiovascular: normal rate Respiratory/Chest: decreased breath sounds Abdomen: normal bowel sounds, non tender, soft Extremities: non-tender STACY KINSEY February 26, 2017 11:14
[2017-02-26] MEDS: DuoNeb 0.5-3(2.5)mg/3ml neb HHN SCH ×4 (11:48→22:52)
--- NOTE | 2017-02-26 14:33 | Infectious Diseases Prog Note ---
Assessment/Plan Problems: (1) Aspiration of blood Assessment & Plan: with possible pneumonia , on clindamycin and aztreonam empirically, repeat CXR. may need EGD to identify the source of her bleeding which could be deep in the esophagus level.GI aware (2) Hypotension Assessment & Plan: recurrent , most likely anemia related, doubt sepsis, repeated blood culture is negative ,will continue aztreonam and clindamycin empirically for now (3) Candiduria Assessment & Plan: continue fluconazole for two weeks, had renal US recently didn't show any stones as a source , laguerre catheter was changed. (4) Encephalopathy, multifactorial, hepatic/septic/renal Assessment & Plan: with elevated ammonia level, continue lactulose, neurology is following (5) Liver cirrhosis Assessment & Plan: with negative hepatitis panel, continue supportive care, avoid hepatotoxic meds, consult GI (6) Severe malnutrition Assessment & Plan: with dysphagia, had PEG tube today by GI, further recommendations as per GI (7) Upper GI hemorrhage Assessment & Plan: rule out esophageal bleeding, recommend EGD, monitor H/H , transfuse blood as needed (8) SHERIE (acute kidney injury) Assessment & Plan: due to hypotension, recommend fluids boluses and hydration, to keep SBP above 100, cortison level is ok . Subjective ROS Limited/Unobtainable: Yes Allergies: Coded Allergies: PENICILLINS (Verified Allergy, Unknown, 02/10/17) Subjective she is still altered , and obtunded , open eyes spontaneously, dosen't follow commands . still has dry blood in her throat. afebrile Objective Vital Signs Last 24 Hour Vital Signs Date Time Temp Pulse Resp B/P Pulse Ox O2 Delivery O2 Flow Rate FiO2 02/26/17 12:03 75 22 93 Venturi Mask 14.0 55 02/26/17 12:00 97.2 83 20 133/76 94 Venturi Mask 15.0 02/26/17 12:00 74 02/26/17 11:51 88 22 Venturi Mask 14.0 55 02/26/17 11:45 88 22 90 Venturi Mask 14.0 55 02/26/17 10:19 81 02/26/17 08:01 Venturi Mask 14.0 55 02/26/17 08:00 95 Venturi Mask 14.0 55 02/26/17 07:51 95.9 80 19 140/71 90 Venturi Mask 15.0 02/26/17 06:02 78 128/66 02/26/17 04:00 78 02/26/17 04:00 97.3 78 19 128/66 96 Nasal Cannula 3.0 02/26/17 00:00 97.5 69 19 123/67 96 Nasal Cannula 3.0 02/25/17 23:55 69 02/25/17 21:32 82 127/67 02/25/17 20:00 96.6 82 20 127/67 96 Nasal Cannula 3.0 02/25/17 19:41 96 Nasal Cannula 3.0 32 02/25/17 19:41 Nasal Cannula 3.0 32 02/25/17 18:51 81 02/25/17 16:17 69 02/25/17 16:07 96.6 73 20 135/63 96 Nasal Cannula 3.0 Height (Feet): 5 Height (Inches): 5.00 Weight (Pounds): 130 General Appearance: cachetic, other - altered and obtunded HEENT: normocephalic, atraumatic, no JVD, other - james blood in her mouth Respiratory/Chest: normal breath sounds, no respiratory distress, no accessory muscle use, decreased breath sounds, crackles/rales Cardiovascular: normal peripheral pulses, normal rate, regular rhythm, no JVD Abdomen: normal bowel sounds, soft, non tender, no organomegaly, non distended , no mass Extremities: no cyanosis, no clubbing Skin: no rash, no lesions Neurologic/Psychiatric: unresponsiveness, depressed affect Microbiology Date/Time Source Procedure Growth Status 02/24/17 16:25 Blood Blood Culture - Preliminary NO GROWTH AFTER 24 HOURS Resulted 02/24/17 16:15 Blood Blood Culture - Preliminary NO GROWTH AFTER 24 HOURS Resulted Laboratory Tests Test 02/26/17 04:00 02/26/17 08:12 White Blood Count 4.3 K/UL (4.8-10.8) L Red Blood Count 2.76 M/UL (4.20-5.40) L Hemoglobin 9.0 G/DL (12.0-16.0) L Hematocrit 26.7 % (37.0-47.0) L Mean Corpuscular Volume 97 FL (80-99) Mean Corpuscular Hemoglobin 32.8 PG (27.0-31.0) H Mean Corpuscular Hemoglobin Concent 33.9 G/DL (32.0-36.0) Red Cell Distribution Width 16.4 % (11.6-14.8) H Platelet Count 52 K/UL (150-450) L Mean Platelet Volume 8.0 FL (6.5-10.1) Neutrophils (%) (Auto) % (45.0-75.0) Lymphocytes (%) (Auto) % (20.0-45.0) Monocytes (%) (Auto) % (1.0-10.0) Eosinophils (%) (Auto) % (0.0-3.0) Basophils (%) (Auto) % (0.0-2.0) Sodium Level 142 mEQ/L (135-145) Potassium Level 3.5 mEQ/L (3.4-4.9) Chloride Level 106 mEQ/L (98-107) Carbon Dioxide Level 23 mEQ/L (20-30) Anion Gap 13 (5-15) Blood Urea Nitrogen 29 mg/dL (7-23) H Creatinine 1.6 mg/dL (0.5-0.9) H Estimat Glomerular Filtration Rate 33.7 mL/min (>60) Glucose Level 114 mg/dL (74-106) H Calcium Level 8.0 mg/dL (8.6-10.2) L Ammonia 58 umol/L (11-51) H Arterial Blood pH 7.440 (7.350-7.450) Arterial Blood Partial Pressure CO2 31.8 mmHg (35.0-45.0) L Arterial Blood Partial Pressure O2 60.1 mmHg (75.0-100.0) L Arterial Blood HCO3 21.4 mmol/L (22.0-26.0) L Arterial Blood Oxygen Saturation 88.8 % (92.0-98.0) L Arterial Blood Base Excess -2.0 Harley Test Positive Current Medications Medications (Trade) Dose Ordered Sig/Gill Route PRN Reason Start Time Stop Time Status Last Admin Dose Admin Al Hydroxide/Mg Hydroxide (Mylanta II) 30 ml Q6H PRN GT dyspepsia 02/25/17 04:30 03/27/17 04:29 Albuterol/ Ipratropium (DuoNeb 0.5-3(2.5)mg/3ml) 3 ml Q4HRT HHN 02/26/17 11:00 03/03/17 10:59 02/26/17 11:48 Aripiprazole (Abilify) 10 mg DAILY GT 02/25/17 09:00 03/27/17 08:59 02/26/17 09:10 Aztreonam 2 gm/ Dextrose 110 ml @ 220 mls/hr Q8H IVPB 02/23/17 19:00 03/02/17 18:59 02/26/17 11:16 Chlorhexidine Gluconate 1 applic 1 applic DAILY TOPIC 02/24/17 15:00 03/26/17 14:59 02/26/17 09:11 Clindamycin HCl/ Dextrose 50 ml @ 100 mls/hr Q8H IV 02/23/17 18:00 03/02/17 17:59 02/26/17 10:27 Dextrose (Dextrose 50%) STAT PRN IV Hypoglycemia 02/23/17 16:30 03/25/17 16:29 Fluconazole/ Sodium Chloride (Diflucan 200mg/ 100ml Premix) 100 ml @ 100 mls/hr Q24H IV 02/24/17 13:00 02/27/17 12:59 02/26/17 12:33 Lactulose (Cephulac) 30 gm Q6HR GT 02/25/17 06:00 03/27/17 05:59 02/26/17 06:02 Lansoprazole (Prevacid) 30 mg ACBREAKFAST GT 02/25/17 06:30 03/27/17 06:29 02/26/17 06:02 Lorazepam (Ativan 2mg/ml 1ml) 1 mg Q4H PRN IV For Anxiety 02/23/17 16:30 03/02/17 16:29 02/25/17 19:56 Morphine Sulfate (Morphine Sulfate) 2 mg Q4H PRN IVP SEVERE PAIN 02/23/17 16:30 03/02/17 16:29 02/24/17 10:33 Ondansetron HCl (Zofran) 4 mg Q6H PRN IVP Nausea & Vomiting 02/23/17 16:30 03/25/17 16:29 Propranolol HCl (Inderal) 10 mg Q8HR GT 02/25/17 06:00 03/27/17 05:59 02/26/17 06:02 Quetiapine Fumarate (SEROquel) 100 mg QHS GT 02/25/17 21:00 03/27/17 20:59 02/25/17 21:32 Rifaximin (Xifaxan) 550 mg EVERY 12 HOURS GT 02/25/17 09:00 03/04/17 08:59 02/26/17 09:10 Sodium Chloride (0.45% NS 1000ml) 1,000 ml @ 50 mls/hr Q20H IV 02/24/17 16:30 03/26/17 16:29 02/26/17 09:10 Valproic Acid (Depakene) 500 mg Q12HR GT 02/23/17 21:00 03/25/17 20:59 02/26/17 09:11 Pura Klein M.D. February 26, 2017 14:33
--- NOTE | 2017-02-26 14:46 | Cardiac Electrophysiology PN ---
Assessment/Plan Assessment/Plan 1. Hypotension, due to volume depletion, anemia and sepsis.Resolved with IV fluid and blood transfusion 2. Sinus tachycardia due to sepsis. No fib or SVT. Better on abx and Inderal. Ruled out for PR.WBC 4 today 3. Schizophrenia, on Haldol. 4. Cirrhosis of the liver, on lactulose, Inderal and Xifaxan 5. Dysphagia. S/P PEG 02/22/17. 6. Agitation. 7. ARF, Creatinine 1.6 today. 8. Thrombocytopenia and anemia, S/P PRBC and platelet transfusion. DW RN. Subjective Subjective Nonverbal.Feeding via PEG. No arrhythmias overnight.Still has oral blood oozing but no melena or bloody PEG discharge Objective Last 24 Hour Vital Signs Date Time Temp Pulse Resp B/P Pulse Ox O2 Delivery O2 Flow Rate FiO2 02/26/17 12:03 75 22 93 Venturi Mask 14.0 55 02/26/17 12:00 97.2 83 20 133/76 94 Venturi Mask 15.0 02/26/17 12:00 74 02/26/17 11:51 88 22 Venturi Mask 14.0 55 02/26/17 11:45 88 22 90 Venturi Mask 14.0 55 02/26/17 10:19 81 02/26/17 08:01 Venturi Mask 14.0 55 02/26/17 08:00 95 Venturi Mask 14.0 55 02/26/17 07:51 95.9 80 19 140/71 90 Venturi Mask 15.0 02/26/17 06:02 78 128/66 02/26/17 04:00 78 02/26/17 04:00 97.3 78 19 128/66 96 Nasal Cannula 3.0 02/26/17 00:00 97.5 69 19 123/67 96 Nasal Cannula 3.0 02/25/17 23:55 69 02/25/17 21:32 82 127/67 02/25/17 20:00 96.6 82 20 127/67 96 Nasal Cannula 3.0 02/25/17 19:41 96 Nasal Cannula 3.0 32 02/25/17 19:41 Nasal Cannula 3.0 32 02/25/17 18:51 81 02/25/17 16:17 69 02/25/17 16:07 96.6 73 20 135/63 96 Nasal Cannula 3.0 Intake and Output 5/19/17 5/20/17 19:00 07:00 Intake Total 1260 ml 1610 ml Output Total 1100 ml 1500 ml Balance 160 ml 110 ml Free Water 100 ml 200 ml IV Total 810 ml 870 ml Tube Feeding 350 ml 540 ml Output Urine Total 1100 ml 1500 ml # Bowel Movements 3 3 Laboratory Tests Test 02/26/17 04:00 02/26/17 08:12 White Blood Count 4.3 K/UL (4.8-10.8) L Red Blood Count 2.76 M/UL (4.20-5.40) L Hemoglobin 9.0 G/DL (12.0-16.0) L Hematocrit 26.7 % (37.0-47.0) L Mean Corpuscular Volume 97 FL (80-99) Mean Corpuscular Hemoglobin 32.8 PG (27.0-31.0) H Mean Corpuscular Hemoglobin Concent 33.9 G/DL (32.0-36.0) Red Cell Distribution Width 16.4 % (11.6-14.8) H Platelet Count 52 K/UL (150-450) L Mean Platelet Volume 8.0 FL (6.5-10.1) Neutrophils (%) (Auto) % (45.0-75.0) Lymphocytes (%) (Auto) % (20.0-45.0) Monocytes (%) (Auto) % (1.0-10.0) Eosinophils (%) (Auto) % (0.0-3.0) Basophils (%) (Auto) % (0.0-2.0) Sodium Level 142 mEQ/L (135-145) Potassium Level 3.5 mEQ/L (3.4-4.9) Chloride Level 106 mEQ/L (98-107) Carbon Dioxide Level 23 mEQ/L (20-30) Anion Gap 13 (5-15) Blood Urea Nitrogen 29 mg/dL (7-23) H Creatinine 1.6 mg/dL (0.5-0.9) H Estimat Glomerular Filtration Rate 33.7 mL/min (>60) Glucose Level 114 mg/dL (74-106) H Calcium Level 8.0 mg/dL (8.6-10.2) L Ammonia 58 umol/L (11-51) H Arterial Blood pH 7.440 (7.350-7.450) Arterial Blood Partial Pressure CO2 31.8 mmHg (35.0-45.0) L Arterial Blood Partial Pressure O2 60.1 mmHg (75.0-100.0) L Arterial Blood HCO3 21.4 mmol/L (22.0-26.0) L Arterial Blood Oxygen Saturation 88.8 % (92.0-98.0) L Arterial Blood Base Excess -2.0 Harley Test Positive Microbiology Date/Time Source Procedure Growth Status 02/24/17 16:25 Blood Blood Culture - Preliminary NO GROWTH AFTER 24 HOURS Resulted 02/24/17 16:15 Blood Blood Culture - Preliminary NO GROWTH AFTER 24 HOURS Resulted Objective HEAD AND NECK: No JVD. LUNGS: Coarse rhonchi CARDIOVASCULAR: Regular S1 and S2 with no gallop or murmur. ABDOMEN: soft.PEG in place. EXTREMITIES: 1+ pitting edema. ELIUD LALA February 26, 2017 14:46
--- NOTE | 2017-02-26 17:24 | Nephrology Progress Note ---
Assessment/Plan Problem List: (1) SHERIE (acute kidney injury) (2) Hypotension (3) Hypernatremia Assessment: improving. (4) Shock (5) Psychiatric disorder (6) Encephalopathy, multifactorial, hepatic/septic/renal (7) UTI (urinary tract infection) Plan S/p G-tube placement, feeding per GI s/p transfusion, monitor H&H, transfuse PRN Monitor neuro status Monitor lytes, correct PRN Monitor renal function Continue IVF AM labs Subjective ROS Limited/Unobtainable: Yes Subjective In no apparent distress. Objective Objective Last 24 Hour Vital Signs Date Time Temp Pulse Resp B/P Pulse Ox O2 Delivery O2 Flow Rate FiO2 02/26/17 16:26 75 02/26/17 16:00 96.8 80 21 131/71 95 Venturi Mask 15.0 02/26/17 15:59 83 22 92 Non-Rebreather 15.0 100 02/26/17 15:48 81 22 93 Non-Rebreather 15.0 100 02/26/17 12:03 75 22 93 Venturi Mask 14.0 55 02/26/17 12:00 97.2 83 20 133/76 94 Venturi Mask 15.0 02/26/17 12:00 74 02/26/17 11:51 88 22 Venturi Mask 14.0 55 02/26/17 11:45 88 22 90 Venturi Mask 14.0 55 02/26/17 10:19 81 02/26/17 08:01 Venturi Mask 14.0 55 02/26/17 08:00 95 Venturi Mask 14.0 55 02/26/17 07:51 95.9 80 19 140/71 90 Venturi Mask 15.0 02/26/17 06:02 78 128/66 02/26/17 04:00 78 02/26/17 04:00 97.3 78 19 128/66 96 Nasal Cannula 3.0 02/26/17 00:00 97.5 69 19 123/67 96 Nasal Cannula 3.0 02/25/17 23:55 69 02/25/17 21:32 82 127/67 02/25/17 20:00 96.6 82 20 127/67 96 Nasal Cannula 3.0 02/25/17 19:41 96 Nasal Cannula 3.0 32 02/25/17 19:41 Nasal Cannula 3.0 32 02/25/17 18:51 81 Intake and Output 02/25/17 02/26/17 19:00 07:00 Intake Total 1260 ml 1670 ml Output Total 1100 ml 1500 ml Balance 160 ml 170 ml Free Water 100 ml 200 ml IV Total 810 ml 870 ml Tube Feeding 350 ml 600 ml Output Urine Total 1100 ml 1500 ml # Bowel Movements 3 3 Laboratory Tests 02/26/17 04:00: White Blood Count 4.3L, Red Blood Count 2.76L, Hemoglobin 9.0L, Hematocrit 26.7L , Mean Corpuscular Volume 97, Mean Corpuscular Hemoglobin 32.8H, Mean Corpuscular Hemoglobin Concent 33.9, Red Cell Distribution Width 16.4H, Platelet Count 52L, Mean Platelet Volume 8.0, Neutrophils (%) (Auto) , Lymphocytes (%) (Auto) , Monocytes (%) (Auto) , Eosinophils (%) (Auto) , Basophils (%) (Auto) , Sodium Level 142, Potassium Level 3.5, Chloride Level 106 , Carbon Dioxide Level 23, Anion Gap 13, Blood Urea Nitrogen 29H, Creatinine 1.6H, Estimat Glomerular Filtration Rate 33.7, Glucose Level 114H, Calcium Level 8.0L, Ammonia 58H 02/26/17 08:12: Arterial Blood pH 7.440, Arterial Blood Partial Pressure CO2 31.8L, Arterial Blood Partial Pressure O2 60.1L, Arterial Blood HCO3 21.4L, Arterial Blood Oxygen Saturation 88.8L, Arterial Blood Base Excess -2.0, Harley Test Positive Height (Feet): 5 Height (Inches): 5.00 Weight (Pounds): 130 General Appearance: no apparent distress Neck: non-tender Cardiovascular: normal rate, no JVD Respiratory/Chest: no respiratory distress Abdomen: non tender, soft, other - PEG Genitourinary/Rectal: other - Patiño Neurologic: disoriented PATRICK ENRIQUEZ February 26, 2017 17:24
[2017-02-26 18:44] LABS: ABG PCO2 32.6 mmHg (35.0-45.0)
[2017-02-26 18:45] LABS: ABG ALLEN TEST POSITIVE; ABG BASE EXCESS -0.9
[2017-02-27] VITALS: BP 102/57
[2017-02-27] MEDS: Lactulose 20gm/30ml UDC GT SCH ×4 (00:10→17:48)
[2017-02-27] MEDS: Clindamycin 600mg 50 ML IV SCH ×3 (01:31→17:47)
[2017-02-27] MEDS: Aztreonam Inj 2 GM in D5W 110 ML IVPB SCH ×3 (03:04→18:32)
[2017-02-27] MEDS: DuoNeb 0.5-3(2.5)mg/3ml neb HHN SCH ×6 (03:29→23:07)
[2017-02-27 04:00] VITALS: BP 106/58
[2017-02-27 05:40] LABS: MEAN CORPUSCULAR VOLUME 97 FL (80-99); MEAN PLATELET VOLUME 8.2 FL (6.5-10.1); PLATELET COUNT 61 K/UL (150-450); RED BLOOD COUNT 2.89 M/UL (4.20-5.40); WHITE BLOOD COUNT 11.8 K/UL (4.8-10.8)
[2017-02-27] MEDS: Propranolol 10mg tab GT SCH ×3 (06:00→21:32)
[2017-02-27 06:36] LABS: ALBUMIN/GLOBULIN RATIO 0.3 (1.0-2.7); CALCIUM 8.2 mg/dL (8.6-10.2); CREATININE 1.6 mg/dL (0.5-0.9); GLOMERULAR FILTRATION RATE 33.7 mL/min (>60)
[2017-02-27 07:58] LABS: BILIRUBIN,DIRECT 0.5 mg/dL (0.1-0.3)
[2017-02-27 08:00] VITALS: BP 120/63
--- NOTE | 2017-02-27 08:33 | Pulmonology Progress Note ---
Assessment/Plan Assessment/Plan ASSESSMENT acute hypoxemic respiratory failure sepsis septic shock-resolved UTI/Staph aureus, Kaushik GI hemorrhage, possibly due to esophageal varices aspiration of blood, possible aspiration PNA hypotension ARF on CKD acute toxic metabolic encephalopathy cholelithiasis possible choledocholithiasis anemia s/p blood transfusion dysphagia s.p PEG . liver cirrhosis coagulopathy chronic psychiatric disorder /schizophrenia severe R knee OA severe protein calorie malnutrition PLAN OF CARE JG status off pressors ( was on short time) BP remains stable hypotension was likely due to volume depletion, anemia and sepsis, better after transfusion ECHO with EF 55% and RVSP of 32 BiPAP and titrate Fio2 to keep sat above 92% fup with ABG ( prior ABG no acidosis) and CXR pulmonary toilet prn try to wean from BiPAP if able venous Duplex BLE negative ? cause of hypoxemia - ? possible aspiration PNA ( ? aspiration of blood) GI follows s/p PEG Strict aspiration precautions GT feeding, monitor tolerance GI prophylaxis hepatitis panel negative monitor ammonia level, continue Rifaximin and Lactulose monitor LFT urine tox screen negative abdominal US with evidence of cholelithiasics and possible choledocholithiasis, recommended ERCP ; per GI not stable for procedure monitor HH transfuse prn, at baseline after transfusion stool OB negative continue Inderal abx, ID follows initial urine cx + Staph aureus, repeated + kaushik, blood cx negative , get sputum cx nephro follows renal US c/w medical renal disease ARF likely partly due to dehydration monitor renal parameters, lytes avoid nephrotoxic neuro follows per neuro acute toxic metabolic encephalopathy multifactorial due to sepsis, renal failure, hepatic failure CT head EEG seizure precautions, Depakote level therapeutic ortho seen the patient X ray R knee reviewed patient with severe OA R knee and will eventually need TKR when medically optimized at this time recommended hinge brace and pain management continue psych meds consider psych eval consider comfort care case discussed and evaluated by supervising physician Subjective Allergies: Coded Allergies: PENICILLINS (Verified Allergy, Unknown, 02/10/17) Subjective desaturated 5/20 and placed on VM 55% further way hypoxemia with VM and NRB, currently on BiPAP 09/14, able to decrease Fio2 to 40% with pulse oximetry currently 98% afebrile, mild leukocytosis today thick secretions upon suctioning with specks of blood , no active bleeding Objective Last 24 Hour Vital Signs Date Time Temp Pulse Resp B/P Pulse Ox O2 Delivery O2 Flow Rate FiO2 02/27/17 07:21 83 14 99 Bi-pap 15.0 40 02/27/17 07:05 85 16 94 Bi-pap 15.0 40 02/27/17 07:05 40 02/27/17 07:00 94 Bi-pap 40 02/27/17 07:00 83 16 94 Facial 40 02/27/17 07:00 Bi-pap 40 02/27/17 06:00 80 101/55 02/27/17 05:22 80 17 100 Facial 50 02/27/17 05:22 50 02/27/17 04:00 97.8 84 18 106/58 99 Bi-pap 70 02/27/17 04:00 86 02/27/17 03:29 84 15 100 Facial 60 02/27/17 03:29 89 15 100 Bi-pap 60 02/27/17 03:28 60 02/27/17 03:28 84 15 100 Bi-pap 60 02/27/17 01:20 87 15 100 Facial 70 02/27/17 00:00 83 02/27/17 00:00 99.1 84 20 102/57 99 Bi-pap 80 02/26/17 23:13 85 16 97 Bi-pap 50 02/26/17 22:51 80 02/26/17 22:51 81 16 100 Bi-pap 100 02/26/17 22:50 81 16 100 Facial 100 02/26/17 21:20 88 136/79 02/26/17 20:58 78 20 98 Facial 100 02/26/17 20:00 97.7 88 23 136/79 95 Bi-pap 100 02/26/17 20:00 82 02/26/17 19:03 81 18 92 Bi-pap 100 02/26/17 18:59 78 17 92 Facial 100 02/26/17 18:59 Bi-pap 100 02/26/17 18:54 93 Bi-pap 100 02/26/17 18:51 78 22 92 Bi-pap 100 02/26/17 16:26 75 02/26/17 16:00 96.8 80 21 131/71 95 Venturi Mask 15.0 02/26/17 15:59 83 22 92 Non-Rebreather 15.0 100 02/26/17 15:48 81 22 93 Non-Rebreather 15.0 100 02/26/17 12:03 75 22 93 Venturi Mask 14.0 55 02/26/17 12:00 97.2 83 20 133/76 94 Venturi Mask 15.0 02/26/17 12:00 74 02/26/17 11:51 88 22 Venturi Mask 14.0 55 02/26/17 11:45 88 22 90 Venturi Mask 14.0 55 02/26/17 10:19 81 Intake and Output 02/26/17 02/27/17 19:00 07:00 Intake Total 410 ml 970 ml Output Total 1200 ml 500 ml Balance -790 ml 470 ml IV Total 410 ml 970 ml Output Urine Total 1200 ml 500 ml # Bowel Movements 3 Objective General Appearance: no acute distress, awake, confused on BiPAP 09/14 40% HEENT: atraumatic, anicteric, BiPAP mask on Respiratory/Chest: decreased BS, secretions thick with specks of blood Cardiovascular: normal peripheral pulses, normal rate, no JVD Abdomen: soft, non tender, hypoactive bowel sounds, GT site closed Extremities: no edema Neurologic/Psychiatric: abnormal gait - bedridden , confused , R foot drop, Musculoskeletal: atrophy - BLE Microbiology Date/Time Source Procedure Growth Status 02/24/17 16:25 Blood Blood Culture - Preliminary NO GROWTH AFTER 48 HOURS Resulted 02/24/17 16:15 Blood Blood Culture - Preliminary NO GROWTH AFTER 48 HOURS Resulted Laboratory Tests 02/26/17 18:37: Arterial Blood pH 7.456H, Arterial Blood Partial Pressure CO2 32.6L, Arterial Blood Partial Pressure O2 < 64.0L, Arterial Blood HCO3 22.5, Arterial Blood Oxygen Saturation 83.2L, Arterial Blood Base Excess -0.9, Harley Test Positive 02/27/17 04:00: White Blood Count 11.8#H, Red Blood Count 2.89L, Hemoglobin 9.5L, Hematocrit 28.1L, Mean Corpuscular Volume 97, Mean Corpuscular Hemoglobin 33.0H, Mean Corpuscular Hemoglobin Concent 34.0, Red Cell Distribution Width 16.0H, Platelet Count 61L, Mean Platelet Volume 8.2, Neutrophils (%) (Auto) , Lymphocytes (%) (Auto) , Monocytes (%) (Auto) , Eosinophils (%) (Auto) , Basophils (%) (Auto) , Neutrophils % (Manual) [Pending], Lymphocytes % (Manual) [Pending], Platelet Estimate [Pending], Platelet Morphology [Pending], Sodium Level 140, Potassium Level 4.0, Chloride Level 103, Carbon Dioxide Level 23, Anion Gap 14, Blood Urea Nitrogen 30H, Creatinine 1.6H, Estimat Glomerular Filtration Rate 33.7, Glucose Level 93, Calcium Level 8.2L, Total Bilirubin 1.2 , Direct Bilirubin 0.5H, Aspartate Amino Transf (AST/SGOT) 28, Alanine Aminotransferase (ALT/SGPT) 12, Alkaline Phosphatase 124H, Total Protein 7.0, Albumin 1.8L, Globulin 5.2, Albumin/Globulin Ratio 0.3L Current Medications Medications (Trade) Dose Ordered Sig/Gill Route PRN Reason Start Time Stop Time Status Last Admin Dose Admin Al Hydroxide/Mg Hydroxide (Mylanta II) 30 ml Q6H PRN GT dyspepsia 02/25/17 04:30 03/27/17 04:29 Albuterol/ Ipratropium (DuoNeb 0.5-3(2.5)mg/3ml) 3 ml Q4HRT HHN 02/26/17 11:00 03/03/17 10:59 02/27/17 07:05 Aripiprazole (Abilify) 10 mg DAILY GT 02/25/17 09:00 03/27/17 08:59 02/26/17 09:10 Aztreonam 2 gm/ Dextrose 110 ml @ 220 mls/hr Q8H IVPB 02/23/17 19:00 03/02/17 18:59 02/27/17 03:04 Chlorhexidine Gluconate 1 applic 1 applic DAILY TOPIC 02/24/17 15:00 03/26/17 14:59 02/26/17 09:11 Clindamycin HCl/ Dextrose 50 ml @ 100 mls/hr Q8H IV 02/23/17 18:00 03/02/17 17:59 02/27/17 01:31 Dextrose (Dextrose 50%) STAT PRN IV Hypoglycemia 02/23/17 16:30 03/25/17 16:29 Fluconazole/ Sodium Chloride (Diflucan 200mg/ 100ml Premix) 100 ml @ 100 mls/hr Q24H IV 02/24/17 13:00 02/27/17 12:59 02/26/17 12:33 Lactulose (Cephulac) 30 gm Q6HR GT 02/25/17 06:00 03/27/17 05:59 02/27/17 06:02 Lansoprazole (Prevacid) 30 mg ACBREAKFAST GT 02/25/17 06:30 03/27/17 06:29 02/27/17 06:02 Lorazepam (Ativan 2mg/ml 1ml) 1 mg Q4H PRN IV For Anxiety 02/23/17 16:30 03/02/17 16:29 02/25/17 19:56 Morphine Sulfate (Morphine Sulfate) 2 mg Q4H PRN IVP SEVERE PAIN 02/23/17 16:30 03/02/17 16:29 02/24/17 10:33 Ondansetron HCl (Zofran) 4 mg Q6H PRN IVP Nausea & Vomiting 02/23/17 16:30 03/25/17 16:29 Propranolol HCl (Inderal) 10 mg Q8HR GT 02/25/17 06:00 03/27/17 05:59 02/26/17 21:20 Quetiapine Fumarate (SEROquel) 100 mg QHS GT 02/25/17 21:00 03/27/17 20:59 02/26/17 20:40 Rifaximin (Xifaxan) 550 mg EVERY 12 HOURS GT 02/25/17 09:00 03/04/17 08:59 02/26/17 20:40 Sodium Chloride (0.45% NS 1000ml) 1,000 ml @ 50 mls/hr Q20H IV 02/24/17 16:30 03/26/17 16:29 02/27/17 06:04 Valproic Acid (Depakene) 500 mg Q12HR GT 02/23/17 21:00 03/25/17 20:59 02/26/17 20:41 Beto CheemaMohawk [facility] Health SystemEarlene Hart NP February 27, 2017 08:33
--- NOTE | 2017-02-27 08:47 | Diagnostic Imaging Report ---
Indications: Shortness of breath Technique: Portable AP chest Findings: Comparison: 02/24/17 Opacification of the left lower lung has developed with leftward shift of cardiomediastinal structures. Linear densities are present in the adjacent right midlung. Left costophrenic angle now obscured. Right lung and pleura remain clear. Size of cardiac silhouette cannot be accurately determined, though probably not significant changed. PICC, gastrostomy tube remain in place. IMPRESSION: Findings compatible with complete atelectasis of the left lower lobe. Central bronchial obstruction must be suspected. Bronchoscopy suggested for further evaluation. Subsegmental atelectasis and adjacent left midlung Left pleural effusion not excludable
--- NOTE | 2017-02-27 08:47 | General Progress Note ---
Assessment/Plan Problem List: (1) Liver cirrhosis ICD Codes: K74.60 - Unspecified cirrhosis of liver SNOMED: 41505343 Qualifiers: Qualified Codes: K74.60 - Unspecified cirrhosis of liver (2) Encephalopathy ICD Codes: G93.40 - Encephalopathy, unspecified SNOMED: 68784204, 533194360 (3) UTI (urinary tract infection) ICD Codes: N39.0 - Urinary tract infection, site not specified SNOMED: 95426002 Qualifiers: Qualified Codes: N30.01 - Acute cystitis with hematuria (4) Psychiatric disorder ICD Codes: F99 - Mental disorder, not otherwise specified SNOMED: 31297187, 719708874 (5) Choledocholithiasis ICD Codes: K80.50 - Calculus of bile duct without cholangitis or cholecystitis without obstruction SNOMED: 436077417 (6) Cholelithiasis ICD Codes: K80.20 - Calculus of gallbladder without cholecystitis without obstruction SNOMED: 936737070 Assessment/Plan lactulose and xifaxan GTF with elevated residuals reglan and erythromycin has interactions with her current meds fu labs supportive care fu LFTS hold ERCP at this time Subjective ROS Limited/Unobtainable: No Allergies: Coded Allergies: PENICILLINS (Verified Allergy, Unknown, 02/10/17) Objective Last 24 Hour Vital Signs Date Time Temp Pulse Resp B/P Pulse Ox O2 Delivery O2 Flow Rate FiO2 02/27/17 07:21 83 14 99 Bi-pap 15.0 40 02/27/17 07:05 85 16 94 Bi-pap 15.0 40 02/27/17 07:05 40 02/27/17 07:00 94 Bi-pap 40 02/27/17 07:00 83 16 94 Facial 40 02/27/17 07:00 Bi-pap 40 02/27/17 06:00 80 101/55 02/27/17 05:22 80 17 100 Facial 50 02/27/17 05:22 50 02/27/17 04:00 97.8 84 18 106/58 99 Bi-pap 70 02/27/17 04:00 86 02/27/17 03:29 84 15 100 Facial 60 02/27/17 03:29 89 15 100 Bi-pap 60 02/27/17 03:28 60 02/27/17 03:28 84 15 100 Bi-pap 60 02/27/17 01:20 87 15 100 Facial 70 02/27/17 00:00 83 02/27/17 00:00 99.1 84 20 102/57 99 Bi-pap 80 02/26/17 23:13 85 16 97 Bi-pap 50 02/26/17 22:51 80 02/26/17 22:51 81 16 100 Bi-pap 100 02/26/17 22:50 81 16 100 Facial 100 02/26/17 21:20 88 136/79 02/26/17 20:58 78 20 98 Facial 100 02/26/17 20:00 97.7 88 23 136/79 95 Bi-pap 100 02/26/17 20:00 82 02/26/17 19:03 81 18 92 Bi-pap 100 02/26/17 18:59 78 17 92 Facial 100 02/26/17 18:59 Bi-pap 100 02/26/17 18:54 93 Bi-pap 100 02/26/17 18:51 78 22 92 Bi-pap 100 02/26/17 16:26 75 02/26/17 16:00 96.8 80 21 131/71 95 Venturi Mask 15.0 02/26/17 15:59 83 22 92 Non-Rebreather 15.0 100 02/26/17 15:48 81 22 93 Non-Rebreather 15.0 100 02/26/17 12:03 75 22 93 Venturi Mask 14.0 55 02/26/17 12:00 97.2 83 20 133/76 94 Venturi Mask 15.0 02/26/17 12:00 74 02/26/17 11:51 88 22 Venturi Mask 14.0 55 02/26/17 11:45 88 22 90 Venturi Mask 14.0 55 02/26/17 10:19 81 Intake and Output 02/26/17 02/27/17 19:00 07:00 Intake Total 410 ml 970 ml Output Total 1200 ml 500 ml Balance -790 ml 470 ml IV Total 410 ml 970 ml Output Urine Total 1200 ml 500 ml # Bowel Movements 3 Laboratory Tests 02/26/17 18:37: Arterial Blood pH 7.456H, Arterial Blood Partial Pressure CO2 32.6L, Arterial Blood Partial Pressure O2 < 64.0L, Arterial Blood HCO3 22.5, Arterial Blood Oxygen Saturation 83.2L, Arterial Blood Base Excess -0.9, Harley Test Positive 02/27/17 04:00: White Blood Count 11.8#H, Red Blood Count 2.89L, Hemoglobin 9.5L, Hematocrit 28.1L, Mean Corpuscular Volume 97, Mean Corpuscular Hemoglobin 33.0H, Mean Corpuscular Hemoglobin Concent 34.0, Red Cell Distribution Width 16.0H, Platelet Count 61L, Mean Platelet Volume 8.2, Neutrophils (%) (Auto) , Lymphocytes (%) (Auto) , Monocytes (%) (Auto) , Eosinophils (%) (Auto) , Basophils (%) (Auto) , Neutrophils % (Manual) [Pending], Lymphocytes % (Manual) [Pending], Platelet Estimate [Pending], Platelet Morphology [Pending], Sodium Level 140, Potassium Level 4.0, Chloride Level 103, Carbon Dioxide Level 23, Anion Gap 14, Blood Urea Nitrogen 30H, Creatinine 1.6H, Estimat Glomerular Filtration Rate 33.7, Glucose Level 93, Calcium Level 8.2L, Total Bilirubin 1.2 , Direct Bilirubin 0.5H, Aspartate Amino Transf (AST/SGOT) 28, Alanine Aminotransferase (ALT/SGPT) 12, Alkaline Phosphatase 124H, Total Protein 7.0, Albumin 1.8L, Globulin 5.2, Albumin/Globulin Ratio 0.3L Height (Feet): 5 Height (Inches): 5.00 Weight (Pounds): 130 General Appearance: lethargic EENT: TMs normal Neck: supple Cardiovascular: normal rate Respiratory/Chest: decreased breath sounds Abdomen: normal bowel sounds, non tender, soft Extremities: non-tender STACY KINSEY February 27, 2017 08:47
[2017-02-27 09:01] LABS: ANISOCYTOSIS 1+; BAND NEUTROPHILS % (MANUAL) 0 % (0-8); BASOPHILS % (MANUAL) 0 % (0-2); EOSINOPHILS % (MANUAL) 0 % (0-3); HYPOCHROMASIA 1+; LYMPHOCYTES % (MANUAL) 5 % (20-45); NEUTROPHILS % (MANUAL) 86 % (45-75); PLATELET ESTIMATE DECREASED; PLATELET MORPHOLOGY NORMAL; TOTAL CELLS COUNTED 100
[2017-02-27] MEDS: Valproic Acid 250mg/5ml Liquid GT SCH ×2 (09:11→20:47)
[2017-02-27] MEDS: Rifaximin 550mg tab GT SCH ×2 (09:11→20:47)
[2017-02-27] MEDS: ARIPiprazole 10mg tab GT SCH (09:11)
--- NOTE | 2017-02-27 09:44 | General Progress Note ---
Assessment/Plan Problem List: (1) UTI (urinary tract infection) ICD Codes: N39.0 - Urinary tract infection, site not specified SNOMED: 32576868 Qualifiers: Qualified Codes: N30.01 - Acute cystitis with hematuria (2) Encephalopathy ICD Codes: G93.40 - Encephalopathy, unspecified SNOMED: 20706250, 232185121 (3) Liver cirrhosis ICD Codes: K74.60 - Unspecified cirrhosis of liver SNOMED: 15147412 Qualifiers: Qualified Codes: K74.60 - Unspecified cirrhosis of liver (4) Altered mental state ICD Codes: R41.82 - Altered mental status, unspecified SNOMED: 831895382, 670134446 Qualifiers: Qualified Codes: R41.82 - Altered mental status, unspecified (5) Encephalopathy, multifactorial, hepatic/septic/renal (6) Severe malnutrition ICD Codes: E43 - Unspecified severe protein-calorie malnutrition SNOMED: 80853666 (7) Psychiatric disorder ICD Codes: F99 - Mental disorder, not otherwise specified SNOMED: 27610278, 656479498 (8) SHERIE (acute kidney injury) ICD Codes: N17.9 - Acute kidney failure, unspecified SNOMED: 69731480 (9) Hypotension ICD Codes: I95.9 - Hypotension, unspecified SNOMED: 77239145 (10) Hypernatremia ICD Codes: E87.0 - Hyperosmolality and hypernatremia SNOMED: 19914979 Status: progressing Assessment/Plan afebrle no wheezing no acute evetns reviewed chart and labs malnutrition azotemia Subjective ROS Limited/Unobtainable: Yes Constitutional: Reports: no symptoms Allergies: Coded Allergies: PENICILLINS (Verified Allergy, Unknown, 02/10/17) Objective Last 24 Hour Vital Signs Date Time Temp Pulse Resp B/P Pulse Ox O2 Delivery O2 Flow Rate FiO2 02/27/17 08:56 81 02/27/17 07:21 83 14 99 Bi-pap 15.0 40 02/27/17 07:05 85 16 94 Bi-pap 15.0 40 02/27/17 07:05 40 02/27/17 07:00 94 Bi-pap 40 02/27/17 07:00 83 16 94 Facial 40 02/27/17 07:00 Bi-pap 40 02/27/17 06:00 80 101/55 02/27/17 05:22 80 17 100 Facial 50 02/27/17 05:22 50 02/27/17 04:00 97.8 84 18 106/58 99 Bi-pap 70 02/27/17 04:00 86 02/27/17 03:29 84 15 100 Facial 60 02/27/17 03:29 89 15 100 Bi-pap 60 02/27/17 03:28 60 02/27/17 03:28 84 15 100 Bi-pap 60 02/27/17 01:20 87 15 100 Facial 70 02/27/17 00:00 83 02/27/17 00:00 99.1 84 20 102/57 99 Bi-pap 80 02/26/17 23:13 85 16 97 Bi-pap 50 02/26/17 22:51 80 02/26/17 22:51 81 16 100 Bi-pap 100 02/26/17 22:50 81 16 100 Facial 100 02/26/17 21:20 88 136/79 02/26/17 20:58 78 20 98 Facial 100 02/26/17 20:00 97.7 88 23 136/79 95 Bi-pap 100 02/26/17 20:00 82 02/26/17 19:03 81 18 92 Bi-pap 100 02/26/17 18:59 78 17 92 Facial 100 02/26/17 18:59 Bi-pap 100 02/26/17 18:54 93 Bi-pap 100 02/26/17 18:51 78 22 92 Bi-pap 100 02/26/17 16:26 75 02/26/17 16:00 96.8 80 21 131/71 95 Venturi Mask 15.0 02/26/17 15:59 83 22 92 Non-Rebreather 15.0 100 02/26/17 15:48 81 22 93 Non-Rebreather 15.0 100 02/26/17 12:03 75 22 93 Venturi Mask 14.0 55 02/26/17 12:00 97.2 83 20 133/76 94 Venturi Mask 15.0 02/26/17 12:00 74 02/26/17 11:51 88 22 Venturi Mask 14.0 55 02/26/17 11:45 88 22 90 Venturi Mask 14.0 55 02/26/17 10:19 81 Intake and Output 02/26/17 02/27/17 19:00 07:00 Intake Total 410 ml 970 ml Output Total 1200 ml 500 ml Balance -790 ml 470 ml IV Total 410 ml 970 ml Output Urine Total 1200 ml 500 ml # Bowel Movements 3 Laboratory Tests 02/26/17 18:37: Arterial Blood pH 7.456H, Arterial Blood Partial Pressure CO2 32.6L, Arterial Blood Partial Pressure O2 < 64.0L, Arterial Blood HCO3 22.5, Arterial Blood Oxygen Saturation 83.2L, Arterial Blood Base Excess -0.9, Harley Test Positive 02/27/17 04:00: White Blood Count 11.8#H, Red Blood Count 2.89L, Hemoglobin 9.5L, Hematocrit 28.1L, Mean Corpuscular Volume 97, Mean Corpuscular Hemoglobin 33.0H, Mean Corpuscular Hemoglobin Concent 34.0, Red Cell Distribution Width 16.0H, Platelet Count 61L, Mean Platelet Volume 8.2, Neutrophils (%) (Auto) , Lymphocytes (%) (Auto) , Monocytes (%) (Auto) , Eosinophils (%) (Auto) , Basophils (%) (Auto) , Differential Total Cells Counted 100, Neutrophils % ( Manual) 86H, Lymphocytes % (Manual) 5L, Monocytes % (Manual) 9, Eosinophils % ( Manual) 0, Basophils % (Manual) 0, Band Neutrophils 0, Platelet Estimate DecreasedL, Platelet Morphology Normal, Hypochromasia 1+, Anisocytosis 1+, Sodium Level 140, Potassium Level 4.0, Chloride Level 103, Carbon Dioxide Level 23, Anion Gap 14, Blood Urea Nitrogen 30H, Creatinine 1.6H, Estimat Glomerular Filtration Rate 33.7, Glucose Level 93, Calcium Level 8.2L, Total Bilirubin 1.2 , Direct Bilirubin 0.5H, Aspartate Amino Transf (AST/SGOT) 28, Alanine Aminotransferase (ALT/SGPT) 12, Alkaline Phosphatase 124H, Total Protein 7.0, Albumin 1.8L, Globulin 5.2, Albumin/Globulin Ratio 0.3L Height (Feet): 5 Height (Inches): 5.00 Weight (Pounds): 130 EENT: PERRL/EOMI Neck: supple Respiratory/Chest: lungs clear Mari Carrington MD February 27, 2017 09:44
[2017-02-27 12:00] VITALS: BP 123/57
[2017-02-27 16:00] VITALS: BP 118/63
--- NOTE | 2017-02-27 17:09 | Nephrology Progress Note ---
Assessment/Plan Problem List: (1) SHERIE (acute kidney injury) (2) Hypotension (3) Hypernatremia Assessment: improving. (4) Shock (5) Psychiatric disorder (6) Encephalopathy, multifactorial, hepatic/septic/renal (7) UTI (urinary tract infection) Plan S/p G-tube placement, feeding per GI s/p transfusion, monitor H&H, transfuse PRN Monitor neuro status Monitor lytes, correct PRN Monitor renal function Continue IVF AM labs Subjective Subjective In no apparent distress. Objective Objective Last 24 Hour Vital Signs Date Time Temp Pulse Resp B/P Pulse Ox O2 Delivery O2 Flow Rate FiO2 02/27/17 14:53 75 16 96 Facial 50 02/27/17 14:18 76 123/57 02/27/17 13:23 76 17 98 Facial 50 02/27/17 12:00 77 02/27/17 12:00 96.0 82 20 123/57 95 Bi-pap 60 02/27/17 10:59 81 16 97 Bi-pap 15.0 50 02/27/17 10:42 50 02/27/17 10:42 79 17 95 Facial 50 02/27/17 10:42 78 16 99 Bi-pap 50 02/27/17 09:49 85 16 93 Facial 40 02/27/17 08:56 81 02/27/17 08:00 97.3 86 20 120/63 93 Bi-pap 60 02/27/17 07:21 83 14 99 Bi-pap 15.0 40 02/27/17 07:05 85 16 94 Bi-pap 15.0 40 02/27/17 07:05 40 02/27/17 07:00 94 Bi-pap 40 02/27/17 07:00 83 16 94 Facial 40 02/27/17 07:00 Bi-pap 40 02/27/17 06:00 80 101/55 02/27/17 05:22 80 17 100 Facial 50 02/27/17 05:22 50 02/27/17 04:00 97.8 84 18 106/58 99 Bi-pap 70 02/27/17 04:00 86 02/27/17 03:29 84 15 100 Facial 60 02/27/17 03:29 89 15 100 Bi-pap 60 02/27/17 03:28 60 02/27/17 03:28 84 15 100 Bi-pap 60 02/27/17 01:20 87 15 100 Facial 70 02/27/17 00:00 83 02/27/17 00:00 99.1 84 20 102/57 99 Bi-pap 80 02/26/17 23:13 85 16 97 Bi-pap 50 02/26/17 22:51 80 02/26/17 22:51 81 16 100 Bi-pap 100 02/26/17 22:50 81 16 100 Facial 100 02/26/17 21:20 88 136/79 02/26/17 20:58 78 20 98 Facial 100 02/26/17 20:00 97.7 88 23 136/79 95 Bi-pap 100 02/26/17 20:00 82 02/26/17 19:03 81 18 92 Bi-pap 100 02/26/17 18:59 78 17 92 Facial 100 02/26/17 18:59 Bi-pap 100 02/26/17 18:54 93 Bi-pap 100 02/26/17 18:51 78 22 92 Bi-pap 100 Intake and Output 02/26/17 02/27/17 19:00 07:00 Intake Total 410 ml 970 ml Output Total 1200 ml 500 ml Balance -790 ml 470 ml IV Total 410 ml 970 ml Output Urine Total 1200 ml 500 ml # Bowel Movements 3 Laboratory Tests 02/26/17 18:37: Arterial Blood pH 7.456H, Arterial Blood Partial Pressure CO2 32.6L, Arterial Blood Partial Pressure O2 < 64.0L, Arterial Blood HCO3 22.5, Arterial Blood Oxygen Saturation 83.2L, Arterial Blood Base Excess -0.9, Harley Test Positive 02/27/17 04:00: White Blood Count 11.8#H, Red Blood Count 2.89L, Hemoglobin 9.5L, Hematocrit 28.1L, Mean Corpuscular Volume 97, Mean Corpuscular Hemoglobin 33.0H, Mean Corpuscular Hemoglobin Concent 34.0, Red Cell Distribution Width 16.0H, Platelet Count 61L, Mean Platelet Volume 8.2, Neutrophils (%) (Auto) , Lymphocytes (%) (Auto) , Monocytes (%) (Auto) , Eosinophils (%) (Auto) , Basophils (%) (Auto) , Differential Total Cells Counted 100, Neutrophils % ( Manual) 86H, Lymphocytes % (Manual) 5L, Monocytes % (Manual) 9, Eosinophils % ( Manual) 0, Basophils % (Manual) 0, Band Neutrophils 0, Platelet Estimate DecreasedL, Platelet Morphology Normal, Hypochromasia 1+, Anisocytosis 1+, Sodium Level 140, Potassium Level 4.0, Chloride Level 103, Carbon Dioxide Level 23, Anion Gap 14, Blood Urea Nitrogen 30H, Creatinine 1.6H, Estimat Glomerular Filtration Rate 33.7, Glucose Level 93, Calcium Level 8.2L, Total Bilirubin 1.2 , Direct Bilirubin 0.5H, Aspartate Amino Transf (AST/SGOT) 28, Alanine Aminotransferase (ALT/SGPT) 12, Alkaline Phosphatase 124H, Total Protein 7.0, Albumin 1.8L, Globulin 5.2, Albumin/Globulin Ratio 0.3L Height (Feet): 5 Height (Inches): 5.00 Weight (Pounds): 130 General Appearance: no apparent distress, confused Neck: normal alignment Cardiovascular: normal rate, no JVD Respiratory/Chest: normal breath sounds, no respiratory distress Abdomen: soft, other Genitourinary/Rectal: other - BANEGAS Neurologic: disoriented PATRICK ENRIQUEZ February 27, 2017 17:09
[2017-02-27 20:00] VITALS: BP 133/67
[2017-02-28] VITALS (9 sets, daily range): BP systolic 73–141; BP diastolic 28–74
[2017-02-28] MEDS: Lactulose 20gm/30ml UDC GT SCH ×4 (00:52→18:16)
[2017-02-28] MEDS: Clindamycin 600mg 50 ML IV SCH ×2 (01:58→11:40)
[2017-02-28] MEDS: Aztreonam Inj 2 GM in D5W 110 ML IVPB SCH ×2 (02:32→12:54)
[2017-02-28] MEDS: DuoNeb 0.5-3(2.5)mg/3ml neb HHN SCH ×6 (03:38→23:11)
[2017-02-28] MEDS: Propranolol 10mg tab GT SCH ×3 (05:38→22:00)
[2017-02-28] MEDS: Dyna-Hex 2% Top Sol 8oz TOPIC SCH (05:42)
[2017-02-28 05:44] LABS: MEAN CORPUSCULAR HGB CONC 34.6 G/DL (32.0-36.0); MEAN CORPUSCULAR VOLUME 95 FL (80-99); MEAN PLATELET VOLUME 7.4 FL (6.5-10.1); PLATELET COUNT 59 K/UL (150-450); RED BLOOD COUNT 2.82 M/UL (4.20-5.40); RED CELL DISTRIBUTION WIDTH 16.2 % (11.6-14.8); WHITE BLOOD COUNT 8.7 K/UL (4.8-10.8)
[2017-02-28 06:10] LABS: CALCIUM 8.2 mg/dL (8.6-10.2); CREATININE 1.6 mg/dL (0.5-0.9); GLOMERULAR FILTRATION RATE 33.7 mL/min (>60); POTASSIUM 3.7 mEQ/L (3.4-4.9)
[2017-02-28 06:30] LABS: ABG ALLEN TEST POSITIVE; ABG BASE EXCESS -3.1; ABG PCO2 36.6 mmHg (35.0-45.0)
[2017-02-28] MEDS: ARIPiprazole 10mg tab GT SCH (08:39)
[2017-02-28] MEDS: Rifaximin 550mg tab GT SCH (08:39)
[2017-02-28] MEDS: Valproic Acid 250mg/5ml Liquid GT SCH ×2 (08:39→21:00)
[2017-02-28 09:14] LABS: ANISOCYTOSIS 1+; BAND NEUTROPHILS % (MANUAL) 0 % (0-8); BASOPHILS % (MANUAL) 0 % (0-2); EOSINOPHILS % (MANUAL) 2 % (0-3); HYPOCHROMASIA 1+; LYMPHOCYTES % (MANUAL) 10 % (20-45); NEUTROPHILS % (MANUAL) 81 % (45-75); PLATELET ESTIMATE DECREASED; PLATELET MORPHOLOGY NORMAL; TOTAL CELLS COUNTED 100
--- NOTE | 2017-02-28 10:49 | Diagnostic Imaging Report ---
Indication: SOB Technique: One view of the chest Comparison: 02/26/2017 Findings: Patient is again rotated to the left. There is persistent retrocardiac consolidation and volume loss, although overall aeration of the left lung base appear somewhat improved. The right lung and pleural space remain clear. Heart size is upper limits of normal. Right arm PICC, gastrostomy remain Impression: Persistent but somewhat improved left lower lobe atelectasis, over 2 days Other stable findings as described
--- NOTE | 2017-02-28 11:39 | Pulmonology Progress Note ---
Assessment/Plan Problems: (1) Encephalopathy (2) ATN (acute tubular necrosis) (3) Shock (4) Liver cirrhosis (5) UTI (urinary tract infection) (6) Encephalopathy, multifactorial, hepatic/septic/renal (7) Psychiatric disorder (8) Severe malnutrition Assessment/Plan still on bipap will dc bipap, and switch to NRM, she might need to get intubated if remains "full code" transfuse prbc prn all notes, labs, meds reviewed. consider DNR and comfort care Subjective ROS Limited/Unobtainable: No Constitutional: Reports: no symptoms HEENT: Repors: no symptoms Respiratory: Reports: no symptoms Allergies: Coded Allergies: PENICILLINS (Verified Allergy, Unknown, 02/10/17) Objective Last 24 Hour Vital Signs Date Time Temp Pulse Resp B/P Pulse Ox O2 Delivery O2 Flow Rate FiO2 02/28/17 11:22 78 18 100 Bi-pap 60 02/28/17 11:22 78 18 99 Facial 60 02/28/17 11:18 60 02/28/17 11:18 77 17 99 Bi-pap 60 02/28/17 09:21 77 16 99 Facial 60 02/28/17 08:53 76 02/28/17 08:00 97.7 85 16 88/55 98 Bi-pap 60 02/28/17 06:38 77 17 99 Facial 60 02/28/17 06:30 78 18 100 Bi-pap 60 02/28/17 06:25 79 15 99 Bi-pap 60 02/28/17 06:25 60 02/28/17 05:38 80 126/74 02/28/17 05:34 80 15 99 Facial 60 02/28/17 04:11 80 02/28/17 04:00 97.8 79 14 126/62 98 Bi-pap 60 02/28/17 04:00 60 02/28/17 03:56 82 18 100 Bi-pap 100 02/28/17 03:38 80 15 100 Facial 100 02/28/17 03:37 100 02/28/17 03:36 81 16 99 Bi-pap 100 02/28/17 01:20 82 14 98 Facial 100 02/28/17 00:00 97.9 82 22 126/74 98 Bi-pap 100 02/28/17 00:00 100 02/28/17 00:00 79 02/27/17 23:40 75 18 100 Bi-pap 100 02/27/17 23:17 77 16 100 Facial 100 02/27/17 23:17 100 02/27/17 23:16 79 16 94 Bi-pap 100 02/27/17 21:32 75 133/67 02/27/17 20:50 75 15 100 Facial 50 02/27/17 20:12 74 15 95 Facial 100 02/27/17 20:11 100 02/27/17 20:11 72 16 95 Bi-pap 100 02/27/17 20:10 Bi-pap 100 02/27/17 20:07 95 Bi-pap 100 02/27/17 20:00 50 02/27/17 20:00 96.8 74 22 133/67 99 Bi-pap 50 02/27/17 19:41 73 02/27/17 17:15 70 15 96 Facial 50 02/27/17 16:30 68 16 100 Bi-pap 40 02/27/17 16:10 71 18 98 Bi-pap 50 02/27/17 16:10 50 02/27/17 16:00 60 02/27/17 16:00 61 02/27/17 16:00 96.8 69 18 118/63 98 Bi-pap 69 02/27/17 14:53 75 16 96 Facial 50 02/27/17 14:18 76 123/57 02/27/17 13:23 76 17 98 Facial 50 02/27/17 12:00 77 02/27/17 12:00 96.0 82 20 123/57 95 Bi-pap 60 02/27/17 12:00 60 Intake and Output 02/27/17 02/28/17 19:00 07:00 Intake Total 1280 ml 1130 ml Output Total 1227 ml 1500 ml Balance 53 ml -370 ml Free Water 100 ml 50 ml IV Total 820 ml 710 ml Tube Feeding 240 ml 270 ml Other 120 ml 100 ml Output Urine Total 600 ml 500 ml Stool Total 627 ml 1000 ml # Bowel Movements 3 1 Objective General Appearance: cachetic HEENT: normocephalic, atraumatic Respiratory/Chest: chest wall non-tender, lungs clear Cardiovascular: normal peripheral pulses, normal rate Abdomen: normal bowel sounds, soft, non tender, PEG Genitourinary: normal external genitalia Extremities: no cyanosis Laboratory Tests 02/28/17 04:00: White Blood Count 8.7, Red Blood Count 2.82L, Hemoglobin 9.3L, Hematocrit 26.9L , Mean Corpuscular Volume 95, Mean Corpuscular Hemoglobin 33.0H, Mean Corpuscular Hemoglobin Concent 34.6, Red Cell Distribution Width 16.2H, Platelet Count 59L, Mean Platelet Volume 7.4, Neutrophils (%) (Auto) , Lymphocytes (%) (Auto) , Monocytes (%) (Auto) , Eosinophils (%) (Auto) , Basophils (%) (Auto) , Differential Total Cells Counted 100, Neutrophils % ( Manual) 81H, Lymphocytes % (Manual) 10L, Monocytes % (Manual) 7, Eosinophils % ( Manual) 2, Basophils % (Manual) 0, Band Neutrophils 0, Platelet Estimate DecreasedL, Platelet Morphology Normal, Hypochromasia 1+, Anisocytosis 1+, Sodium Level 140, Potassium Level 3.7, Chloride Level 104, Carbon Dioxide Level 23, Anion Gap 13, Blood Urea Nitrogen 36H, Creatinine 1.6H, Estimat Glomerular Filtration Rate 33.7, Glucose Level 144H, Calcium Level 8.2L 02/28/17 06:25: Arterial Blood pH 7.380, Arterial Blood Partial Pressure CO2 36.6, Arterial Blood Partial Pressure O2 89.6, Arterial Blood HCO3 21.5L, Arterial Blood Oxygen Saturation 96.0, Arterial Blood Base Excess -3.1, Harley Test Positive Current Medications Medications (Trade) Dose Ordered Sig/Gill Route PRN Reason Start Time Stop Time Status Last Admin Dose Admin Al Hydroxide/Mg Hydroxide (Mylanta II) 30 ml Q6H PRN GT dyspepsia 02/25/17 04:30 03/27/17 04:29 Albuterol/ Ipratropium (DuoNeb 0.5-3(2.5)mg/3ml) 3 ml Q4HRT HHN 02/26/17 11:00 03/03/17 10:59 02/28/17 11:22 Aripiprazole (Abilify) 10 mg DAILY GT 02/25/17 09:00 03/27/17 08:59 02/28/17 08:39 Aztreonam 2 gm/ Dextrose 110 ml @ 220 mls/hr Q8H IVPB 02/23/17 19:00 03/02/17 18:59 02/28/17 02:32 Chlorhexidine Gluconate 1 applic 1 applic DAILY TOPIC 02/24/17 15:00 03/26/17 14:59 02/28/17 05:42 Clindamycin HCl/ Dextrose (Cleocin 600mg) 50 ml @ 100 mls/hr Q8H IV 02/23/17 18:00 03/02/17 17:59 02/28/17 01:58 Dextrose (Dextrose 50%) STAT PRN IV Hypoglycemia 02/23/17 16:30 03/25/17 16:29 Lactulose (Cephulac) 30 gm Q6HR GT 02/25/17 06:00 03/27/17 05:59 02/28/17 05:37 Lansoprazole (Prevacid) 30 mg ACBREAKFAST GT 02/25/17 06:30 03/27/17 06:29 02/28/17 05:37 Lorazepam (Ativan 2mg/ml 1ml) 1 mg Q4H PRN IV For Anxiety 02/23/17 16:30 03/02/17 16:29 02/25/17 19:56 Morphine Sulfate (Morphine Sulfate) 2 mg Q4H PRN IVP SEVERE PAIN 02/23/17 16:30 03/02/17 16:29 02/24/17 10:33 Ondansetron HCl (Zofran) 4 mg Q6H PRN IVP Nausea & Vomiting 02/23/17 16:30 03/25/17 16:29 Propranolol HCl (Inderal) 10 mg Q8HR GT 02/25/17 06:00 03/27/17 05:59 02/28/17 05:38 Quetiapine Fumarate (SEROquel) 100 mg QHS GT 02/25/17 21:00 03/27/17 20:59 02/27/17 20:47 Rifaximin (Xifaxan) 550 mg EVERY 12 HOURS GT 02/25/17 09:00 03/04/17 08:59 02/28/17 08:39 Sodium Chloride (0.45% NS 1000ml) 1,000 ml @ 50 mls/hr Q20H IV 02/24/17 16:30 03/26/17 16:29 02/27/17 21:32 Valproic Acid (Depakene) 500 mg Q12HR GT 5/17/17 21:00 03/25/17 20:59 02/28/17 08:39 MANFRED YING February 28, 2017 11:39
--- NOTE | 2017-02-28 12:39 | GI Progress Note ---
Assessment/Plan Problems: (1) Severe malnutrition ICD Codes: E43 - Unspecified severe protein-calorie malnutrition SNOMED: 22194682 (2) Altered mental state ICD Codes: R41.82 - Altered mental status, unspecified SNOMED: 863342193, 487748648 Qualifiers: Qualified Codes: R41.82 - Altered mental status, unspecified (3) Encephalopathy, multifactorial, hepatic/septic/renal (4) Encephalopathy ICD Codes: G93.40 - Encephalopathy, unspecified SNOMED: 87691686, 840901327 (5) Liver cirrhosis ICD Codes: K74.60 - Unspecified cirrhosis of liver SNOMED: 95633099 Qualifiers: Qualified Codes: K74.60 - Unspecified cirrhosis of liver Status: not improved, unchanged Status Narrative Discussed with Dr. Gil. Assessment/Plan pt transferred to [facility] for hypotension OB stool negative utox negative hypernatremia >> resolved, reduce lactulose to help Na hep panel negative dc propranolol monitor H&H, transfuse prn elevated ammonia >> increased lactulose frequency + Xifaxan lactulose and xifaxan GTF with elevated residuals reglan and erythromycin has interactions with her current meds fu LFTS fu labs supportive care hold ERCP at this time Subjective Subjective limited Objective Last 24 Hour Vital Signs Date Time Temp Pulse Resp B/P Pulse Ox O2 Delivery O2 Flow Rate FiO2 02/28/17 11:22 78 18 100 Bi-pap 60 02/28/17 11:22 78 18 99 Facial 60 02/28/17 11:18 60 02/28/17 11:18 77 17 99 Bi-pap 60 02/28/17 09:21 77 16 99 Facial 60 02/28/17 08:53 76 02/28/17 08:00 97.7 85 16 88/55 98 Bi-pap 60 02/28/17 06:38 77 17 99 Facial 60 02/28/17 06:30 78 18 100 Bi-pap 60 02/28/17 06:25 79 15 99 Bi-pap 60 02/28/17 06:25 60 02/28/17 05:38 80 126/74 02/28/17 05:34 80 15 99 Facial 60 02/28/17 04:11 80 02/28/17 04:00 97.8 79 14 126/62 98 Bi-pap 60 02/28/17 04:00 60 02/28/17 03:56 82 18 100 Bi-pap 100 02/28/17 03:38 80 15 100 Facial 100 02/28/17 03:37 100 02/28/17 03:36 81 16 99 Bi-pap 100 02/28/17 01:20 82 14 98 Facial 100 02/28/17 00:00 97.9 82 22 126/74 98 Bi-pap 100 02/28/17 00:00 100 02/28/17 00:00 79 02/27/17 23:40 75 18 100 Bi-pap 100 02/27/17 23:17 77 16 100 Facial 100 02/27/17 23:17 100 02/27/17 23:16 79 16 94 Bi-pap 100 02/27/17 21:32 75 133/67 02/27/17 20:50 75 15 100 Facial 50 02/27/17 20:12 74 15 95 Facial 100 02/27/17 20:11 100 02/27/17 20:11 72 16 95 Bi-pap 100 02/27/17 20:10 Bi-pap 100 02/27/17 20:07 95 Bi-pap 100 02/27/17 20:00 50 02/27/17 20:00 96.8 74 22 133/67 99 Bi-pap 50 02/27/17 19:41 73 02/27/17 17:15 70 15 96 Facial 50 02/27/17 16:30 68 16 100 Bi-pap 40 02/27/17 16:10 71 18 98 Bi-pap 50 02/27/17 16:10 50 02/27/17 16:00 60 02/27/17 16:00 61 02/27/17 16:00 96.8 69 18 118/63 98 Bi-pap 69 02/27/17 14:53 75 16 96 Facial 50 02/27/17 14:18 76 123/57 02/27/17 13:23 76 17 98 Facial 50 Intake and Output 02/27/17 02/28/17 19:00 07:00 Intake Total 1280 ml 1130 ml Output Total 1227 ml 1500 ml Balance 53 ml -370 ml Free Water 100 ml 50 ml IV Total 820 ml 710 ml Tube Feeding 240 ml 270 ml Other 120 ml 100 ml Output Urine Total 600 ml 500 ml Stool Total 627 ml 1000 ml # Bowel Movements 3 1 Laboratory Tests Test 02/28/17 04:00 02/28/17 06:25 White Blood Count 8.7 K/UL (4.8-10.8) Red Blood Count 2.82 M/UL (4.20-5.40) L Hemoglobin 9.3 G/DL (12.0-16.0) L Hematocrit 26.9 % (37.0-47.0) L Mean Corpuscular Volume 95 FL (80-99) Mean Corpuscular Hemoglobin 33.0 PG (27.0-31.0) H Mean Corpuscular Hemoglobin Concent 34.6 G/DL (32.0-36.0) Red Cell Distribution Width 16.2 % (11.6-14.8) H Platelet Count 59 K/UL (150-450) L Mean Platelet Volume 7.4 FL (6.5-10.1) Neutrophils (%) (Auto) % (45.0-75.0) Lymphocytes (%) (Auto) % (20.0-45.0) Monocytes (%) (Auto) % (1.0-10.0) Eosinophils (%) (Auto) % (0.0-3.0) Basophils (%) (Auto) % (0.0-2.0) Differential Total Cells Counted 100 Neutrophils % (Manual) 81 % (45-75) H Lymphocytes % (Manual) 10 % (20-45) L Monocytes % (Manual) 7 % (1-10) Eosinophils % (Manual) 2 % (0-3) Basophils % (Manual) 0 % (0-2) Band Neutrophils 0 % (0-8) Platelet Estimate Decreased L Platelet Morphology Normal Hypochromasia 1+ Anisocytosis 1+ Sodium Level 140 mEQ/L (135-145) Potassium Level 3.7 mEQ/L (3.4-4.9) Chloride Level 104 mEQ/L (98-107) Carbon Dioxide Level 23 mEQ/L (20-30) Anion Gap 13 (5-15) Blood Urea Nitrogen 36 mg/dL (7-23) H Creatinine 1.6 mg/dL (0.5-0.9) H Estimat Glomerular Filtration Rate 33.7 mL/min (>60) Glucose Level 144 mg/dL (74-106) H Calcium Level 8.2 mg/dL (8.6-10.2) L Arterial Blood pH 7.380 (7.350-7.450) Arterial Blood Partial Pressure CO2 36.6 mmHg (35.0-45.0) Arterial Blood Partial Pressure O2 89.6 mmHg (75.0-100.0) Arterial Blood HCO3 21.5 mmol/L (22.0-26.0) L Arterial Blood Oxygen Saturation 96.0 % (92.0-98.0) Arterial Blood Base Excess -3.1 Harley Test Positive Height (Feet): 5 Height (Inches): 5.00 Weight (Pounds): 130 General Appearance: alert, confused Cardiovascular: normal rate Respiratory/Chest: other - facial Abdominal Exam: GT site - c/d/i Diamond Smith N.P. February 28, 2017 12:39
--- NOTE | 2017-02-28 13:36 | General Progress Note ---
Assessment/Plan Problem List: (1) Liver cirrhosis ICD Codes: K74.60 - Unspecified cirrhosis of liver SNOMED: 57118291 Qualifiers: Qualified Codes: K74.60 - Unspecified cirrhosis of liver (2) Encephalopathy ICD Codes: G93.40 - Encephalopathy, unspecified SNOMED: 33594723, 498547131 (3) UTI (urinary tract infection) ICD Codes: N39.0 - Urinary tract infection, site not specified SNOMED: 32475721 Qualifiers: Qualified Codes: N30.01 - Acute cystitis with hematuria (4) Encephalopathy, multifactorial, hepatic/septic/renal (5) Altered mental state ICD Codes: R41.82 - Altered mental status, unspecified SNOMED: 303809588, 005617473 Qualifiers: Qualified Codes: R41.82 - Altered mental status, unspecified (6) Severe malnutrition ICD Codes: E43 - Unspecified severe protein-calorie malnutrition SNOMED: 67217810 (7) Psychiatric disorder ICD Codes: F99 - Mental disorder, not otherwise specified SNOMED: 80224328, 277197716 Status: stable, progressing, tolerating diet Assessment/Plan ot pt diet ivf psyc neuro gi tx cbc bmp am ltach eval Subjective Constitutional: Reports: weakness Allergies: Coded Allergies: PENICILLINS (Verified Allergy, Unknown, 02/10/17) All Systems: reviewed and negative except above Subjective 02nc confused s/p gtube Objective Last 24 Hour Vital Signs Date Time Temp Pulse Resp B/P Pulse Ox O2 Delivery O2 Flow Rate FiO2 02/28/17 13:04 76 20 100 15.0 02/28/17 11:22 78 18 100 Bi-pap 60 02/28/17 11:22 78 18 99 Facial 60 02/28/17 11:18 60 02/28/17 11:18 77 17 99 Bi-pap 60 02/28/17 09:21 77 16 99 Facial 60 02/28/17 08:53 76 02/28/17 08:00 97.7 85 16 88/55 98 Bi-pap 60 02/28/17 06:38 77 17 99 Facial 60 02/28/17 06:30 78 18 100 Bi-pap 60 02/28/17 06:25 79 15 99 Bi-pap 60 02/28/17 06:25 60 02/28/17 05:38 80 126/74 02/28/17 05:34 80 15 99 Facial 60 02/28/17 04:11 80 02/28/17 04:00 97.8 79 14 126/62 98 Bi-pap 60 02/28/17 04:00 60 02/28/17 03:56 82 18 100 Bi-pap 100 02/28/17 03:38 80 15 100 Facial 100 02/28/17 03:37 100 02/28/17 03:36 81 16 99 Bi-pap 100 02/28/17 01:20 82 14 98 Facial 100 02/28/17 00:00 97.9 82 22 126/74 98 Bi-pap 100 02/28/17 00:00 100 02/28/17 00:00 79 02/27/17 23:40 75 18 100 Bi-pap 100 02/27/17 23:17 77 16 100 Facial 100 02/27/17 23:17 100 02/27/17 23:16 79 16 94 Bi-pap 100 02/27/17 21:32 75 133/67 02/27/17 20:50 75 15 100 Facial 50 02/27/17 20:12 74 15 95 Facial 100 02/27/17 20:11 100 02/27/17 20:11 72 16 95 Bi-pap 100 02/27/17 20:10 Bi-pap 100 02/27/17 20:07 95 Bi-pap 100 02/27/17 20:00 50 02/27/17 20:00 96.8 74 22 133/67 99 Bi-pap 50 02/27/17 19:41 73 02/27/17 17:15 70 15 96 Facial 50 02/27/17 16:30 68 16 100 Bi-pap 40 02/27/17 16:10 71 18 98 Bi-pap 50 02/27/17 16:10 50 02/27/17 16:00 60 02/27/17 16:00 61 02/27/17 16:00 96.8 69 18 118/63 98 Bi-pap 69 02/27/17 14:53 75 16 96 Facial 50 02/27/17 14:18 76 123/57 Intake and Output 02/27/17 02/28/17 19:00 07:00 Intake Total 1280 ml 1130 ml Output Total 1227 ml 1500 ml Balance 53 ml -370 ml Free Water 100 ml 50 ml IV Total 820 ml 710 ml Tube Feeding 240 ml 270 ml Other 120 ml 100 ml Output Urine Total 600 ml 500 ml Stool Total 627 ml 1000 ml # Bowel Movements 3 1 Laboratory Tests 02/28/17 04:00: White Blood Count 8.7, Red Blood Count 2.82L, Hemoglobin 9.3L, Hematocrit 26.9L , Mean Corpuscular Volume 95, Mean Corpuscular Hemoglobin 33.0H, Mean Corpuscular Hemoglobin Concent 34.6, Red Cell Distribution Width 16.2H, Platelet Count 59L, Mean Platelet Volume 7.4, Neutrophils (%) (Auto) , Lymphocytes (%) (Auto) , Monocytes (%) (Auto) , Eosinophils (%) (Auto) , Basophils (%) (Auto) , Differential Total Cells Counted 100, Neutrophils % ( Manual) 81H, Lymphocytes % (Manual) 10L, Monocytes % (Manual) 7, Eosinophils % ( Manual) 2, Basophils % (Manual) 0, Band Neutrophils 0, Platelet Estimate DecreasedL, Platelet Morphology Normal, Hypochromasia 1+, Anisocytosis 1+, Sodium Level 140, Potassium Level 3.7, Chloride Level 104, Carbon Dioxide Level 23, Anion Gap 13, Blood Urea Nitrogen 36H, Creatinine 1.6H, Estimat Glomerular Filtration Rate 33.7, Glucose Level 144H, Calcium Level 8.2L 02/28/17 06:25: Arterial Blood pH 7.380, Arterial Blood Partial Pressure CO2 36.6, Arterial Blood Partial Pressure O2 89.6, Arterial Blood HCO3 21.5L, Arterial Blood Oxygen Saturation 96.0, Arterial Blood Base Excess -3.1, Harley Test Positive Height (Feet): 5 Height (Inches): 5.00 Weight (Pounds): 130 General Appearance: lethargic, confused EENT: normal ENT inspection Neck: normal alignment Cardiovascular: normal peripheral pulses, normal rate, regular rhythm Respiratory/Chest: chest wall non-tender, lungs clear, normal breath sounds Abdomen: normal bowel sounds, non tender, soft Extremities: normal inspection Edema: no edema noted Arm (L), no edema noted Arm (R), no edema noted Leg (L), no edema noted Leg (R), no edema noted Pedal (L), no edema noted Pedal (R), no edema noted Generalized Neurologic: motor weakness Skin: normal pigmentation, warm/dry TERE GILES February 28, 2017 13:36
--- NOTE | 2017-02-28 14:05 | Infectious Diseases Prog Note ---
Assessment/Plan Problems: (1) Aspiration of blood Assessment & Plan: repeated CXR didn't show any infiltrates but atelectasis only , will D/C clindamycin and aztreonam empirically, RECOMMEND ENT consult to identify the source of her mouth bleeding which could be deep in the pharyngeal area l. (2) Hypotension Assessment & Plan: recurrent , most likely anemia related, doubt sepsis, repeated blood culture is negative ,will discontinue aztreonam and clindamycin for now (3) Candiduria Assessment & Plan: was treated with fluconazole for two weeks, had renal US recently didn't show any stones as a source , laguerre catheter was changed. (4) Encephalopathy, multifactorial, hepatic/septic/renal Assessment & Plan: with elevated ammonia level, on lactulose, neurology is following (5) Liver cirrhosis Assessment & Plan: with negative hepatitis panel, continue supportive care, avoid hepatotoxic meds, consult GI (6) Severe malnutrition Assessment & Plan: with dysphagia, had PEG tube today by GI, further recommendations as per GI (7) SHERIE (acute kidney injury) Assessment & Plan: due to hypotension, recommend fluids boluses and hydration, to keep SBP above 100, cortison level is ok . Subjective ROS Limited/Unobtainable: Yes Allergies: Coded Allergies: PENICILLINS (Verified Allergy, Unknown, 02/10/17) Subjective she was more agitated and alert today, dosen't follow commands . off BIPAP, on NRM, has dry blood in her oral cavity . afebrile Objective Vital Signs Last 24 Hour Vital Signs Date Time Temp Pulse Resp B/P Pulse Ox O2 Delivery O2 Flow Rate FiO2 02/28/17 13:04 76 20 100 15.0 02/28/17 11:22 78 18 100 Bi-pap 60 02/28/17 11:22 78 18 99 Facial 60 02/28/17 11:18 60 02/28/17 11:18 77 17 99 Bi-pap 60 02/28/17 09:21 77 16 99 Facial 60 02/28/17 08:53 76 02/28/17 08:00 97.7 85 16 88/55 98 Bi-pap 60 02/28/17 06:38 77 17 99 Facial 60 02/28/17 06:30 78 18 100 Bi-pap 60 02/28/17 06:25 79 15 99 Bi-pap 60 02/28/17 06:25 60 02/28/17 05:38 80 126/74 02/28/17 05:34 80 15 99 Facial 60 02/28/17 04:11 80 02/28/17 04:00 97.8 79 14 126/62 98 Bi-pap 60 02/28/17 04:00 60 02/28/17 03:56 82 18 100 Bi-pap 100 02/28/17 03:38 80 15 100 Facial 100 02/28/17 03:37 100 02/28/17 03:36 81 16 99 Bi-pap 100 02/28/17 01:20 82 14 98 Facial 100 02/28/17 00:00 97.9 82 22 126/74 98 Bi-pap 100 02/28/17 00:00 100 02/28/17 00:00 79 02/27/17 23:40 75 18 100 Bi-pap 100 02/27/17 23:17 77 16 100 Facial 100 02/27/17 23:17 100 02/27/17 23:16 79 16 94 Bi-pap 100 02/27/17 21:32 75 133/67 02/27/17 20:50 75 15 100 Facial 50 02/27/17 20:12 74 15 95 Facial 100 02/27/17 20:11 100 02/27/17 20:11 72 16 95 Bi-pap 100 02/27/17 20:10 Bi-pap 100 02/27/17 20:07 95 Bi-pap 100 02/27/17 20:00 50 02/27/17 20:00 96.8 74 22 133/67 99 Bi-pap 50 02/27/17 19:41 73 02/27/17 17:15 70 15 96 Facial 50 02/27/17 16:30 68 16 100 Bi-pap 40 02/27/17 16:10 71 18 98 Bi-pap 50 02/27/17 16:10 50 02/27/17 16:00 60 02/27/17 16:00 61 02/27/17 16:00 96.8 69 18 118/63 98 Bi-pap 69 02/27/17 14:53 75 16 96 Facial 50 02/27/17 14:18 76 123/57 Height (Feet): 5 Height (Inches): 5.00 Weight (Pounds): 130 General Appearance: WD/WN HEENT: normocephalic, atraumatic, anicteric, PERRL, supple, no JVD, other - old dry blood in her moth, unable to see the source Respiratory/Chest: chest wall non-tender, normal breath sounds, no respiratory distress, no accessory muscle use, decreased breath sounds Cardiovascular: normal peripheral pulses, normal rate, regular rhythm, no gallop/murmur, no JVD Abdomen: normal bowel sounds, soft, non tender, no organomegaly, non distended , no mass Extremities: no cyanosis, no clubbing Skin: no rash, no lesions Laboratory Tests Test 02/28/17 04:00 02/28/17 06:25 White Blood Count 8.7 K/UL (4.8-10.8) Red Blood Count 2.82 M/UL (4.20-5.40) L Hemoglobin 9.3 G/DL (12.0-16.0) L Hematocrit 26.9 % (37.0-47.0) L Mean Corpuscular Volume 95 FL (80-99) Mean Corpuscular Hemoglobin 33.0 PG (27.0-31.0) H Mean Corpuscular Hemoglobin Concent 34.6 G/DL (32.0-36.0) Red Cell Distribution Width 16.2 % (11.6-14.8) H Platelet Count 59 K/UL (150-450) L Mean Platelet Volume 7.4 FL (6.5-10.1) Neutrophils (%) (Auto) % (45.0-75.0) Lymphocytes (%) (Auto) % (20.0-45.0) Monocytes (%) (Auto) % (1.0-10.0) Eosinophils (%) (Auto) % (0.0-3.0) Basophils (%) (Auto) % (0.0-2.0) Differential Total Cells Counted 100 Neutrophils % (Manual) 81 % (45-75) H Lymphocytes % (Manual) 10 % (20-45) L Monocytes % (Manual) 7 % (1-10) Eosinophils % (Manual) 2 % (0-3) Basophils % (Manual) 0 % (0-2) Band Neutrophils 0 % (0-8) Platelet Estimate Decreased L Platelet Morphology Normal Hypochromasia 1+ Anisocytosis 1+ Sodium Level 140 mEQ/L (135-145) Potassium Level 3.7 mEQ/L (3.4-4.9) Chloride Level 104 mEQ/L (98-107) Carbon Dioxide Level 23 mEQ/L (20-30) Anion Gap 13 (5-15) Blood Urea Nitrogen 36 mg/dL (7-23) H Creatinine 1.6 mg/dL (0.5-0.9) H Estimat Glomerular Filtration Rate 33.7 mL/min (>60) Glucose Level 144 mg/dL (74-106) H Calcium Level 8.2 mg/dL (8.6-10.2) L Arterial Blood pH 7.380 (7.350-7.450) Arterial Blood Partial Pressure CO2 36.6 mmHg (35.0-45.0) Arterial Blood Partial Pressure O2 89.6 mmHg (75.0-100.0) Arterial Blood HCO3 21.5 mmol/L (22.0-26.0) L Arterial Blood Oxygen Saturation 96.0 % (92.0-98.0) Arterial Blood Base Excess -3.1 Harley Test Positive Current Medications Medications (Trade) Dose Ordered Sig/Gill Route PRN Reason Start Time Stop Time Status Last Admin Dose Admin Al Hydroxide/Mg Hydroxide (Mylanta II) 30 ml Q6H PRN GT dyspepsia 02/25/17 04:30 03/27/17 04:29 Albuterol/ Ipratropium (DuoNeb 0.5-3(2.5)mg/3ml) 3 ml Q4HRT HHN 02/26/17 11:00 03/03/17 10:59 02/28/17 11:22 Aripiprazole (Abilify) 10 mg DAILY GT 02/25/17 09:00 03/27/17 08:59 02/28/17 08:39 Aztreonam 2 gm/ Dextrose 110 ml @ 220 mls/hr Q8H IVPB 02/23/17 19:00 03/02/17 18:59 02/28/17 12:54 Chlorhexidine Gluconate 1 applic 1 applic DAILY TOPIC 02/24/17 15:00 03/26/17 14:59 02/28/17 05:42 Clindamycin HCl/ Dextrose (Cleocin 600mg) 50 ml @ 100 mls/hr Q8H IV 02/23/17 18:00 03/02/17 17:59 02/28/17 11:40 Dextrose (Dextrose 50%) STAT PRN IV Hypoglycemia 02/23/17 16:30 03/25/17 16:29 Lactulose (Cephulac) 30 gm Q6HR GT 02/25/17 06:00 03/27/17 05:59 02/28/17 12:53 Lansoprazole (Prevacid) 30 mg ACBREAKFAST GT 02/25/17 06:30 03/27/17 06:29 02/28/17 05:37 Lorazepam (Ativan 2mg/ml 1ml) 1 mg Q4H PRN IV For Anxiety 02/23/17 16:30 03/02/17 16:29 02/25/17 19:56 Morphine Sulfate (Morphine Sulfate) 2 mg Q4H PRN IVP SEVERE PAIN 02/23/17 16:30 03/02/17 16:29 02/24/17 10:33 Ondansetron HCl (Zofran) 4 mg Q6H PRN IVP Nausea & Vomiting 02/23/17 16:30 03/25/17 16:29 Propranolol HCl (Inderal) 10 mg Q8HR GT 02/25/17 06:00 03/27/17 05:59 02/28/17 05:38 Quetiapine Fumarate (SEROquel) 100 mg QHS GT 02/25/17 21:00 03/27/17 20:59 02/27/17 20:47 Rifaximin (Xifaxan) 550 mg EVERY 12 HOURS GT 02/25/17 09:00 03/04/17 08:59 02/28/17 08:39 Sodium Chloride (0.45% NS 1000ml) 1,000 ml @ 50 mls/hr Q20H IV 02/24/17 16:30 03/26/17 16:29 02/27/17 21:32 Valproic Acid (Depakene) 500 mg Q12HR GT 02/23/17 21:00 03/25/17 20:59 02/28/17 08:39 Pura Klein M.D. February 28, 2017 14:05
[2017-02-28] MEDS ORDERED: 1/2 NS 1000ml IV ONE (17:06)
--- NOTE | 2017-02-28 17:25 | Cardiac Electrophysiology PN ---
Assessment/Plan Assessment/Plan 1. Hypotension, due to volume depletion, anemia and sepsis.Resolved with IV fluid and blood transfusion 2. Sinus tachycardia due to sepsis. No fib or SVT. Better on abx and Inderal. Ruled out for [place]. 3. Schizophrenia, on Haldol. 4. Cirrhosis of the liver, on lactulose, Inderal and Xifaxan 5. Dysphagia. S/P PEG 02/22/17. 6. Agitation. 7. ARF, Creatinine 1.6 last 3 days 8. Thrombocytopenia and anemia, S/P PRBC and platelet transfusion. 9. Respiratory failure on Face Mask per Dr Mcgovern. WALE RN. Subjective Subjective Nonverbal.Feeding via PEG. No arrhythmias overnight. Head CT pending.Has O2 via face mask on. Objective Last 24 Hour Vital Signs Date Time Temp Pulse Resp B/P Pulse Ox O2 Delivery O2 Flow Rate FiO2 02/28/17 15:35 74 20 100 Non-Rebreather 100 02/28/17 15:25 73 12 100 Non-Rebreather 15.0 100 02/28/17 15:25 100 02/28/17 15:24 77 18 100 15.0 02/28/17 15:07 74 126/76 02/28/17 13:04 76 20 100 15.0 02/28/17 12:00 97.2 74 16 126/67 100 Venturi Mask 15.0 02/28/17 11:22 78 18 100 Bi-pap 60 02/28/17 11:22 78 18 99 Facial 60 02/28/17 11:18 60 02/28/17 11:18 77 17 99 Bi-pap 60 02/28/17 09:21 77 16 99 Facial 60 02/28/17 08:53 76 02/28/17 08:00 97.7 85 16 88/55 98 Bi-pap 60 02/28/17 06:38 77 17 99 Facial 60 02/28/17 06:30 78 18 100 Bi-pap 60 02/28/17 06:25 79 15 99 Bi-pap 60 02/28/17 06:25 60 02/28/17 05:38 80 126/74 02/28/17 05:34 80 15 99 Facial 60 02/28/17 04:11 80 02/28/17 04:00 97.8 79 14 126/62 98 Bi-pap 60 02/28/17 04:00 60 02/28/17 03:56 82 18 100 Bi-pap 100 02/28/17 03:38 80 15 100 Facial 100 02/28/17 03:37 100 02/28/17 03:36 81 16 99 Bi-pap 100 02/28/17 01:20 82 14 98 Facial 100 02/28/17 00:00 97.9 82 22 126/74 98 Bi-pap 100 02/28/17 00:00 100 02/28/17 00:00 79 02/27/17 23:40 75 18 100 Bi-pap 100 02/27/17 23:17 77 16 100 Facial 100 02/27/17 23:17 100 02/27/17 23:16 79 16 94 Bi-pap 100 02/27/17 21:32 75 133/67 02/27/17 20:50 75 15 100 Facial 50 02/27/17 20:12 74 15 95 Facial 100 02/27/17 20:11 100 02/27/17 20:11 72 16 95 Bi-pap 100 02/27/17 20:10 Bi-pap 100 02/27/17 20:07 95 Bi-pap 100 02/27/17 20:00 50 02/27/17 20:00 96.8 74 22 133/67 99 Bi-pap 50 02/27/17 19:41 73 Intake and Output 02/27/17 02/28/17 19:00 07:00 Intake Total 1280 ml 1130 ml Output Total 1227 ml 1500 ml Balance 53 ml -370 ml Free Water 100 ml 50 ml IV Total 820 ml 710 ml Tube Feeding 240 ml 270 ml Other 120 ml 100 ml Output Urine Total 600 ml 500 ml Stool Total 627 ml 1000 ml # Bowel Movements 3 1 Laboratory Tests Test 02/28/17 04:00 02/28/17 06:25 White Blood Count 8.7 K/UL (4.8-10.8) Red Blood Count 2.82 M/UL (4.20-5.40) L Hemoglobin 9.3 G/DL (12.0-16.0) L Hematocrit 26.9 % (37.0-47.0) L Mean Corpuscular Volume 95 FL (80-99) Mean Corpuscular Hemoglobin 33.0 PG (27.0-31.0) H Mean Corpuscular Hemoglobin Concent 34.6 G/DL (32.0-36.0) Red Cell Distribution Width 16.2 % (11.6-14.8) H Platelet Count 59 K/UL (150-450) L Mean Platelet Volume 7.4 FL (6.5-10.1) Neutrophils (%) (Auto) % (45.0-75.0) Lymphocytes (%) (Auto) % (20.0-45.0) Monocytes (%) (Auto) % (1.0-10.0) Eosinophils (%) (Auto) % (0.0-3.0) Basophils (%) (Auto) % (0.0-2.0) Differential Total Cells Counted 100 Neutrophils % (Manual) 81 % (45-75) H Lymphocytes % (Manual) 10 % (20-45) L Monocytes % (Manual) 7 % (1-10) Eosinophils % (Manual) 2 % (0-3) Basophils % (Manual) 0 % (0-2) Band Neutrophils 0 % (0-8) Platelet Estimate Decreased L Platelet Morphology Normal Hypochromasia 1+ Anisocytosis 1+ Sodium Level 140 mEQ/L (135-145) Potassium Level 3.7 mEQ/L (3.4-4.9) Chloride Level 104 mEQ/L (98-107) Carbon Dioxide Level 23 mEQ/L (20-30) Anion Gap 13 (5-15) Blood Urea Nitrogen 36 mg/dL (7-23) H Creatinine 1.6 mg/dL (0.5-0.9) H Estimat Glomerular Filtration Rate 33.7 mL/min (>60) Glucose Level 144 mg/dL (74-106) H Calcium Level 8.2 mg/dL (8.6-10.2) L Arterial Blood pH 7.380 (7.350-7.450) Arterial Blood Partial Pressure CO2 36.6 mmHg (35.0-45.0) Arterial Blood Partial Pressure O2 89.6 mmHg (75.0-100.0) Arterial Blood HCO3 21.5 mmol/L (22.0-26.0) L Arterial Blood Oxygen Saturation 96.0 % (92.0-98.0) Arterial Blood Base Excess -3.1 Harley Test Positive Objective HEAD AND NECK: No JVD. Face Mask on. LUNGS: Coarse rhonchi CARDIOVASCULAR: Regular S1 and S2 with no gallop or murmur. ABDOMEN: soft.PEG in place. EXTREMITIES: 1+ pitting edema. ELIUD LALA February 28, 2017 17:25
--- NOTE | 2017-02-28 18:57 | Nephrology Progress Note ---
Assessment/Plan Problem List: (1) SHERIE (acute kidney injury) (2) Liver cirrhosis (3) UTI (urinary tract infection) (4) Encephalopathy, multifactorial, hepatic/septic/renal (5) Altered mental state (6) Psychiatric disorder Plan Monitor BUN/cr Monitor I&O Monitor lytes Monitor neuro status Continue tube feeding Abx per ID AM labs Subjective ROS Limited/Unobtainable: Yes Subjective In bed, disoriented, agitated. Objective Objective Last 24 Hour Vital Signs Date Time Temp Pulse Resp B/P Pulse Ox O2 Delivery O2 Flow Rate FiO2 02/28/17 16:00 80 02/28/17 15:35 74 20 100 Non-Rebreather 100 02/28/17 15:25 73 12 100 Non-Rebreather 15.0 100 02/28/17 15:25 100 02/28/17 15:24 77 18 100 15.0 02/28/17 15:07 74 126/76 02/28/17 13:04 76 20 100 15.0 02/28/17 12:00 97.2 74 16 126/67 100 Venturi Mask 15.0 02/28/17 12:00 78 02/28/17 11:22 78 18 100 Bi-pap 60 02/28/17 11:22 78 18 99 Facial 60 02/28/17 11:18 60 02/28/17 11:18 77 17 99 Bi-pap 60 02/28/17 09:21 77 16 99 Facial 60 02/28/17 08:53 76 02/28/17 08:00 97.7 85 16 88/55 98 Bi-pap 60 02/28/17 06:38 77 17 99 Facial 60 02/28/17 06:30 78 18 100 Bi-pap 60 02/28/17 06:25 79 15 99 Bi-pap 60 02/28/17 06:25 60 02/28/17 05:38 80 126/74 02/28/17 05:34 80 15 99 Facial 60 02/28/17 04:11 80 02/28/17 04:00 97.8 79 14 126/62 98 Bi-pap 60 02/28/17 04:00 60 02/28/17 03:56 82 18 100 Bi-pap 100 02/28/17 03:38 80 15 100 Facial 100 02/28/17 03:37 100 02/28/17 03:36 81 16 99 Bi-pap 100 02/28/17 01:20 82 14 98 Facial 100 02/28/17 00:00 97.9 82 22 126/74 98 Bi-pap 100 02/28/17 00:00 100 02/28/17 00:00 79 02/27/17 23:40 75 18 100 Bi-pap 100 02/27/17 23:17 77 16 100 Facial 100 02/27/17 23:17 100 02/27/17 23:16 79 16 94 Bi-pap 100 02/27/17 21:32 75 133/67 02/27/17 20:50 75 15 100 Facial 50 02/27/17 20:12 74 15 95 Facial 100 02/27/17 20:11 100 02/27/17 20:11 72 16 95 Bi-pap 100 02/27/17 20:10 Bi-pap 100 02/27/17 20:07 95 Bi-pap 100 02/27/17 20:00 50 02/27/17 20:00 96.8 74 22 133/67 99 Bi-pap 50 02/27/17 19:41 73 Intake and Output 02/27/17 02/28/17 19:00 07:00 Intake Total 1280 ml 1130 ml Output Total 1227 ml 1500 ml Balance 53 ml -370 ml Free Water 100 ml 50 ml IV Total 820 ml 710 ml Tube Feeding 240 ml 270 ml Other 120 ml 100 ml Output Urine Total 600 ml 500 ml Stool Total 627 ml 1000 ml # Bowel Movements 3 1 Laboratory Tests 02/28/17 04:00: White Blood Count 8.7, Red Blood Count 2.82L, Hemoglobin 9.3L, Hematocrit 26.9L , Mean Corpuscular Volume 95, Mean Corpuscular Hemoglobin 33.0H, Mean Corpuscular Hemoglobin Concent 34.6, Red Cell Distribution Width 16.2H, Platelet Count 59L, Mean Platelet Volume 7.4, Neutrophils (%) (Auto) , Lymphocytes (%) (Auto) , Monocytes (%) (Auto) , Eosinophils (%) (Auto) , Basophils (%) (Auto) , Differential Total Cells Counted 100, Neutrophils % ( Manual) 81H, Lymphocytes % (Manual) 10L, Monocytes % (Manual) 7, Eosinophils % ( Manual) 2, Basophils % (Manual) 0, Band Neutrophils 0, Platelet Estimate DecreasedL, Platelet Morphology Normal, Hypochromasia 1+, Anisocytosis 1+, Sodium Level 140, Potassium Level 3.7, Chloride Level 104, Carbon Dioxide Level 23, Anion Gap 13, Blood Urea Nitrogen 36H, Creatinine 1.6H, Estimat Glomerular Filtration Rate 33.7, Glucose Level 144H, Calcium Level 8.2L 02/28/17 06:25: Arterial Blood pH 7.380, Arterial Blood Partial Pressure CO2 36.6, Arterial Blood Partial Pressure O2 89.6, Arterial Blood HCO3 21.5L, Arterial Blood Oxygen Saturation 96.0, Arterial Blood Base Excess -3.1, Harley Test Positive Height (Feet): 5 Height (Inches): 5.00 Weight (Pounds): 130 General Appearance: no apparent distress EENT: normal ENT inspection Neck: normal alignment Cardiovascular: regular rhythm Respiratory/Chest: normal breath sounds, no respiratory distress Abdomen: soft, other - PEG Extremities: non-tender Neurologic: disoriented Madeline Fischer N.P. February 28, 2017 18:56
[2017-02-28] MEDS ORDERED: LORazepam Inj 2mg/ml 1ml IV PRN (20:30)
[2017-02-28] MEDS ORDERED: Morphine Sulfate 2mg/ml Inj IV PRN (20:30)
[2017-02-28] MEDS ORDERED: Miralax 17gm pkt ORAL PRN (20:30)
[2017-02-28] MEDS ORDERED: Morphine Sulfate 2mg/ml Inj IVP PRN (20:30)
[2017-02-28 20:55] LABS: MEAN CORPUSCULAR HEMOGLOBIN 34.6 PG (27.0-31.0); MEAN CORPUSCULAR HGB CONC 34.9 G/DL (32.0-36.0); MEAN CORPUSCULAR VOLUME 99 FL (80-99); MEAN PLATELET VOLUME 6.2 FL (6.5-10.1); PLATELET COUNT 64 K/UL (150-450); WHITE BLOOD COUNT 12.2 K/UL (4.8-10.8)
[2017-02-28] MEDS ORDERED: Rifaximin 550mg tab GT SCH (21:00)
[2017-02-28] MEDS ORDERED: Depakote 125mg Sprinkles NG SCH (21:00)
[2017-02-28] MEDS: LORazepam 1mg tab NG SCH (21:24)
[2017-02-28] MEDS: Rifaximin 550mg tab NG SCH (21:26)
[2017-02-28 21:42] LABS: ANISOCYTOSIS 1+; BAND NEUTROPHILS % (MANUAL) 0 % (0-8); BASOPHILS % (MANUAL) 0 % (0-2); EOSINOPHILS % (MANUAL) 1 % (0-3); HYPOCHROMASIA 1+; LYMPHOCYTES % (MANUAL) 12 % (20-45); NEUTROPHILS % (MANUAL) 78 % (45-75); PLATELET ESTIMATE DECREASED; PLATELET MORPHOLOGY NORMAL; TOTAL CELLS COUNTED 100
[2017-02-28 22:19] LABS: ABG ALLEN TEST POSITIVE; ABG BASE EXCESS -2.4; ABG PCO2 40.4 mmHg (35.0-45.0)
[2017-02-28] MEDS ORDERED: Mylanta II UD 30ml GT PRN (22:30)
[2017-02-28] MEDS: DOPamine 400mg/250ml 250 ML IV SCH (23:15)
[2017-03-01] VITALS (52 sets, daily range): BP systolic 71–146; BP diastolic 33–99
[2017-03-01] MEDS: Lactulose 20gm/30ml UDC GT SCH ×5 (00:59→23:55)
[2017-03-01] MEDS: LORazepam 1mg tab NG SCH ×3 (00:59→08:20)
[2017-03-01] MEDS: DuoNeb 0.5-3(2.5)mg/3ml neb HHN SCH ×5 (03:14→19:28)
[2017-03-01] MEDS: Propranolol 10mg tab GT SCH ×2 (06:14→14:48)
[2017-03-01 06:49] LABS: MEAN CORPUSCULAR HEMOGLOBIN 32.6 PG (27.0-31.0); MEAN CORPUSCULAR VOLUME 96 FL (80-99); MEAN PLATELET VOLUME 6.1 FL (6.5-10.1); PLATELET COUNT 86 K/UL (150-450); RED BLOOD COUNT 2.78 M/UL (4.20-5.40); RED CELL DISTRIBUTION WIDTH 16.5 % (11.6-14.8); WHITE BLOOD COUNT 17.9 K/UL (4.8-10.8)
[2017-03-01 07:09] LABS: ALBUMIN/GLOBULIN RATIO 0.3 (1.0-2.7); CALCIUM 8.1 mg/dL (8.6-10.2); CREATININE 1.6 mg/dL (0.5-0.9); GLOMERULAR FILTRATION RATE 33.7 mL/min (>60); MAGNESIUM 2.3 mg/dL (1.7-2.5); PHOSPHORUS 3.6 mg/dL (2.5-4.8); POTASSIUM 3.4 mEQ/L (3.4-4.9); TOTAL PROTEIN 7.2 g/dL (6.6-8.7)
[2017-03-01 08:04] LABS: BILIRUBIN,DIRECT 0.4 mg/dL (0.1-0.3)
[2017-03-01] MEDS: Valproic Acid 250mg/5ml Liquid GT SCH ×2 (08:30→20:53)
[2017-03-01] MEDS: Dyna-Hex 2% Top Sol 8oz TOPIC SCH (08:30)
[2017-03-01] MEDS: ARIPiprazole 10mg tab NG SCH (08:30)
[2017-03-01] MEDS: Rifaximin 550mg tab NG SCH ×2 (08:30→20:52)
[2017-03-01] MEDS ORDERED: Propranolol 10mg tab NG SCH (09:00)
[2017-03-01] MEDS ORDERED: Dyna-Hex 2% Top Sol 8oz TOPIC SCH (09:00)
[2017-03-01] MEDS ORDERED: ARIPiprazole 10mg tab GT SCH (09:00)
[2017-03-01] MEDS ORDERED: Succinylcholine 20mg/ml 10ml vial ONE (09:26)
[2017-03-01] MEDS ORDERED: Etomidate 40mg/20ml Inj IV ONE (09:26)
--- NOTE | 2017-03-01 09:41 | Pulmonolgy Critical Care Note ---
Critical Care - Asmt/Plan Problems: (1) Acute encephalopathy (2) Acute respiratory failure (3) Shock (4) Liver cirrhosis (5) Encephalopathy (6) UTI (urinary tract infection) (7) Severe malnutrition (8) Psychiatric disorder (9) SHERIE (acute kidney injury) Respiratory: monitor respiratory rate, adjust FIO2, CXR Cardiac: continue pressors, continue to monitor HR/BP Renal: F/U I&O Infectious Disease: check cultures, continue antibiotics Gastrointestinal: continue feedings/current rate Endocrine: monitor blood sugar Prophylaxis: Protonix Disposition: keep in ICU Time Spent (Minutes): 30 Notes Reviewed: renal Discussed with: nurses, consultants, case repairerprovider relations manager - Objective Last 24 Hour Vital Signs Date Time Temp Pulse Resp B/P Pulse Ox O2 Delivery O2 Flow Rate FiO2 03/01/17 08:00 98.0 77 19 118/63 100 Mechanical Ventilator 50 03/01/17 08:00 50 03/01/17 08:00 77 03/01/17 07:11 73 14 100 Mechanical Ventilator 03/01/17 07:08 76 22 50 03/01/17 07:00 76 22 100 Mechanical Ventilator 50 03/01/17 06:30 79 18 115/60 98 Mechanical Ventilator 50 03/01/17 06:15 79 18 110/69 98 Mechanical Ventilator 50 03/01/17 06:14 80 124/51 03/01/17 06:00 110/69 03/01/17 06:00 79 18 124/51 98 Mechanical Ventilator 50 03/01/17 05:49 79 22 50 03/01/17 05:45 79 18 111/56 98 Mechanical Ventilator 50 03/01/17 05:30 79 18 115/52 98 Mechanical Ventilator 50 03/01/17 05:15 80 18 108/58 98 Mechanical Ventilator 50 03/01/17 05:00 83 18 109/81 98 Mechanical Ventilator 50 03/01/17 05:00 108/58 03/01/17 04:45 89 18 114/99 98 Mechanical Ventilator 50 03/01/17 04:30 84 18 107/47 98 Mechanical Ventilator 50 03/01/17 04:15 84 18 105/44 98 Mechanical Ventilator 50 03/01/17 04:00 50 03/01/17 04:00 81 03/01/17 04:00 99/51 03/01/17 04:00 98.0 85 18 99/51 98 Mechanical Ventilator 50 03/01/17 03:45 84 18 118/51 98 Mechanical Ventilator 50 03/01/17 03:31 88 21 100 Mechanical Ventilator 03/01/17 03:30 83 18 113/51 98 Mechanical Ventilator 50 03/01/17 03:15 85 21 50 03/01/17 03:15 85 19 99 Mechanical Ventilator 50 03/01/17 03:15 82 18 115/47 98 Mechanical Ventilator 50 03/01/17 03:01 84 18 99/58 98 Mechanical Ventilator 50 03/01/17 03:00 99/48 03/01/17 02:45 80 16 105/52 98 Mechanical Ventilator 50 03/01/17 02:30 75 16 100/43 98 Mechanical Ventilator 50 03/01/17 02:15 81 17 99/57 98 Mechanical Ventilator 50 03/01/17 02:00 84 16 101/49 98 Mechanical Ventilator 50 03/01/17 02:00 100/43 03/01/17 01:45 78 15 93/60 98 Mechanical Ventilator 50 03/01/17 01:30 82 17 93/43 98 Mechanical Ventilator 50 03/01/17 01:15 81 14 91/43 98 Mechanical Ventilator 50 03/01/17 01:00 78 14 93/38 98 Mechanical Ventilator 50 03/01/17 01:00 91/43 03/01/17 00:45 68 14 84/46 98 Mechanical Ventilator 50 03/01/17 00:37 73 25 50 03/01/17 00:30 65 14 93/43 98 Mechanical Ventilator 50 03/01/17 00:15 63 14 91/35 98 Mechanical Ventilator 50 03/01/17 00:00 50 03/01/17 00:00 98.0 47 14 71/33 98 Mechanical Ventilator 50 03/01/17 00:00 91/35 03/01/17 00:00 64 02/28/17 23:15 75/48 02/28/17 23:14 47 24 50 02/28/17 23:13 48 23 100 Mechanical Ventilator 02/28/17 23:11 51 19 100 Mechanical Ventilator 50 02/28/17 23:00 98.0 49 14 84/45 98 Mechanical Ventilator 50 02/28/17 22:00 98.0 50 14 73/46 98 Mechanical Ventilator 50 02/28/17 22:00 48 76/44 5/22/17 21:30 72 26 80 02/28/17 21:00 98.0 75 14 118/68 98 Mechanical Ventilator 50 02/28/17 21:00 50 02/28/17 20:25 75 24 100 02/28/17 20:00 75 02/28/17 20:00 98.0 75 14 123/28 98 Mechanical Ventilator 50 02/28/17 19:30 Mechanical Ventilator 02/28/17 19:30 Mechanical Ventilator 02/28/17 16:00 80 02/28/17 16:00 97.0 80 20 141/74 100 Non-Rebreather 100 02/28/17 15:35 74 20 100 Non-Rebreather 100 02/28/17 15:25 73 12 100 Non-Rebreather 15.0 100 02/28/17 15:25 100 02/28/17 15:24 77 18 100 15.0 02/28/17 15:07 74 126/76 02/28/17 13:04 76 20 100 15.0 02/28/17 12:00 97.2 74 16 126/67 100 Venturi Mask 15.0 02/28/17 12:00 78 02/28/17 11:22 78 18 100 Bi-pap 60 02/28/17 11:22 78 18 99 Facial 60 02/28/17 11:18 60 02/28/17 11:18 77 17 99 Bi-pap 60 Status: awake Condition: critical HEENT: atraumatic Neck: full ROM Heart: HR/BP stable, HR/BP unstable Abdomen: soft, active bowel sounds, feeding tube Extremities: edema Decubiti: location Accucheck: 208 Critical Care - Subjective ROS Limited/Unobtainable: Yes ICU Day: 2 Intubation Day: 2 Condition: critical EKG Rhythm: Sinus Rhythm FI02: 50 Vent Support Breath Rate: 14 Vent Support Mode: AC Vent Tidal Volume: 500 Sputum Amount: Moderate PEEP: 5.0 PIP: 20 Fluids: 1/2 NS 50 cc.hour Drips: dopamin Tube Feeding Amount: 30 I&O: Intake and Output 02/28/17 03/01/17 19:00 07:00 Intake Total 890 ml 1115.945 ml Output Total 1875 ml 820 ml Balance -985 ml 295.945 ml Free Water 0 ml IV Total 460 ml 695.945 ml Tube Feeding 330 ml 360 ml Blood Product 60 ml Other 100 ml Output Urine Total 850 ml 520 ml Stool Total 1025 ml 300 ml CXR: ET in good position ET-Tube: 7.5 ET Position: 25 Labs: Laboratory Tests Test 02/28/17 20:30 02/28/17 22:00 03/01/17 06:25 White Blood Count 12.2 K/UL (4.8-10.8) H 17.9 K/UL (4.8-10.8) H Red Blood Count 2.70 M/UL (4.20-5.40) L 2.78 M/UL (4.20-5.40) L Hemoglobin 9.3 G/DL (12.0-16.0) L 9.1 G/DL (12.0-16.0) L Hematocrit 26.7 % (37.0-47.0) L 26.6 % (37.0-47.0) L Mean Corpuscular Volume 99 FL (80-99) 96 FL (80-99) Mean Corpuscular Hemoglobin 34.6 PG (27.0-31.0) H 32.6 PG (27.0-31.0) H Mean Corpuscular Hemoglobin Concent 34.9 G/DL (32.0-36.0) 34.0 G/DL (32.0-36.0) Red Cell Distribution Width 17.0 % (11.6-14.8) H 16.5 % (11.6-14.8) H Platelet Count 64 K/UL (150-450) L 86 K/UL (150-450) L Mean Platelet Volume 6.2 FL (6.5-10.1) L 6.1 FL (6.5-10.1) L Neutrophils (%) (Auto) % (45.0-75.0) % (45.0-75.0) Lymphocytes (%) (Auto) % (20.0-45.0) % (20.0-45.0) Monocytes (%) (Auto) % (1.0-10.0) % (1.0-10.0) Eosinophils (%) (Auto) % (0.0-3.0) % (0.0-3.0) Basophils (%) (Auto) % (0.0-2.0) % (0.0-2.0) Differential Total Cells Counted 100 Neutrophils % (Manual) 78 % (45-75) H Pending Lymphocytes % (Manual) 12 % (20-45) L Pending Monocytes % (Manual) 9 % (1-10) Eosinophils % (Manual) 1 % (0-3) Basophils % (Manual) 0 % (0-2) Band Neutrophils 0 % (0-8) Platelet Estimate Decreased L Pending Platelet Morphology Normal Pending Hypochromasia 1+ Anisocytosis 1+ Arterial Blood pH 7.368 (7.350-7.450) Arterial Blood Partial Pressure CO2 40.4 mmHg (35.0-45.0) Arterial Blood Partial Pressure O2 135.6 mmHg (75.0-100.0) H Arterial Blood HCO3 22.7 mmol/L (22.0-26.0) Arterial Blood Oxygen Saturation 98.1 % (92.0-98.0) H Arterial Blood Base Excess -2.4 Harley Test Positive Sodium Level 143 mEQ/L (135-145) Potassium Level 3.4 mEQ/L (3.4-4.9) Chloride Level 108 mEQ/L (98-107) H Carbon Dioxide Level 20 mEQ/L (20-30) Anion Gap 15 (5-15) Blood Urea Nitrogen 40 mg/dL (7-23) H Creatinine 1.6 mg/dL (0.5-0.9) H Estimat Glomerular Filtration Rate 33.7 mL/min (>60) Glucose Level 146 mg/dL (74-106) H Calcium Level 8.1 mg/dL (8.6-10.2) L Phosphorus Level 3.6 mg/dL (2.5-4.8) Magnesium Level 2.3 mg/dL (1.7-2.5) Total Bilirubin 1.2 mg/dL (0.0-1.2) Direct Bilirubin 0.4 mg/dL (0.1-0.3) H Aspartate Amino Transf (AST/SGOT) 38 U/L (5-40) Alanine Aminotransferase (ALT/SGPT) 13 U/L (3-33) Alkaline Phosphatase 122 U/L (35-104) H Total Protein 7.2 g/dL (6.6-8.7) Albumin 1.8 g/dL (3.5-5.2) L Globulin 5.4 g/dL Albumin/Globulin Ratio 0.3 (1.0-2.7) L MANFRED YING March 01, 2017 09:41
[2017-03-01 10:53] LABS: INR 1.3 (0.9-1.1); PROTHROMBIN TIME 13.8 SEC (9.30-11.50)
--- NOTE | 2017-03-01 10:53 | Diagnostic Imaging Report ---
Indication: Status post intubation Technique: One view of the chest Comparison: 13 hours earlier Findings: Interim endotracheal intubation, endotracheal tube tip projected in good position approximately 3 cm above the riley. Right arm PICC is again demonstrated. Perihilar interstitial opacities appears somewhat increased from the prior study. Retrocardiac consolidation appears to persist but is somewhat improved. Again demonstrated is a gastrostomy and right upper quadrant gallstones Impression: Satisfactory endotracheal intubation Increased interstitial congestion, over 13 hours Improved but persistent retrocardiac consolidation Other findings as noted This agrees with the preliminary interpretation provided overnight by Dr. Marsh
[2017-03-01 10:54] LABS: BAND NEUTROPHILS % (MANUAL) 1 % (0-8); BASOPHILS % (MANUAL) 0 % (0-2); EOSINOPHILS % (MANUAL) 3 % (0-3); LYMPHOCYTES % (MANUAL) 6 % (20-45); NEUTROPHILS % (MANUAL) 77 % (45-75); PLATELET ESTIMATE DECREASED; PLATELET MORPHOLOGY NORMAL; TOTAL CELLS COUNTED 100
[2017-03-01 10:55] LABS: ANISOCYTOSIS 1+
[2017-03-01] MEDS: DOPamine 400mg/250ml 250 ML IV SCH ×2 (12:22→23:55)
--- NOTE | 2017-03-01 13:40 | General Progress Note ---
Assessment/Plan Problem List: (1) Liver cirrhosis ICD Codes: K74.60 - Unspecified cirrhosis of liver SNOMED: 88710428 Qualifiers: Qualified Codes: K74.60 - Unspecified cirrhosis of liver (2) Encephalopathy ICD Codes: G93.40 - Encephalopathy, unspecified SNOMED: 73909393, 012644617 (3) UTI (urinary tract infection) ICD Codes: N39.0 - Urinary tract infection, site not specified SNOMED: 48650418 Qualifiers: Qualified Codes: N30.01 - Acute cystitis with hematuria (4) Encephalopathy, multifactorial, hepatic/septic/renal (5) Altered mental state ICD Codes: R41.82 - Altered mental status, unspecified SNOMED: 910791503, 232966124 Qualifiers: Qualified Codes: R41.82 - Altered mental status, unspecified (6) Severe malnutrition ICD Codes: E43 - Unspecified severe protein-calorie malnutrition SNOMED: 20517432 (7) Psychiatric disorder ICD Codes: F99 - Mental disorder, not otherwise specified SNOMED: 49042103, 857499897 Status: stable, progressing, tolerating diet Assessment/Plan ot pt diet ivf psyc neuro gi tx cbc bmp am Subjective Constitutional: Reports: weakness Allergies: Coded Allergies: PENICILLINS (Verified Allergy, Unknown, 02/10/17) All Systems: reviewed and negative except above Subjective intubated sedated Objective Last 24 Hour Vital Signs Date Time Temp Pulse Resp B/P Pulse Ox O2 Delivery O2 Flow Rate FiO2 03/01/17 12:45 81 20 50 03/01/17 12:22 93/37 03/01/17 12:00 50 03/01/17 12:00 75 03/01/17 12:00 97.4 75 13 88/34 99 Mechanical Ventilator 50 03/01/17 11:00 77 17 105/41 100 Mechanical Ventilator 50 03/01/17 10:50 73 14 100 Mechanical Ventilator 03/01/17 10:48 70 14 50 03/01/17 10:40 70 14 100 Mechanical Ventilator 50 03/01/17 10:00 73 15 91/37 100 Mechanical Ventilator 50 03/01/17 09:20 89 23 50 03/01/17 09:00 78 18 124/52 100 Mechanical Ventilator 50 03/01/17 08:00 98.0 77 19 118/63 100 Mechanical Ventilator 50 03/01/17 08:00 50 5/23/17 08:00 77 03/01/17 07:11 73 14 100 Mechanical Ventilator 03/01/17 07:08 76 22 50 03/01/17 07:00 76 22 100 Mechanical Ventilator 50 03/01/17 07:00 79 17 118/56 100 Mechanical Ventilator 50 03/01/17 06:30 79 18 115/60 98 Mechanical Ventilator 50 03/01/17 06:15 79 18 110/69 98 Mechanical Ventilator 50 03/01/17 06:14 80 124/51 03/01/17 06:00 110/69 03/01/17 06:00 79 18 124/51 98 Mechanical Ventilator 50 03/01/17 05:49 79 22 50 03/01/17 05:45 79 18 111/56 98 Mechanical Ventilator 50 03/01/17 05:30 79 18 115/52 98 Mechanical Ventilator 50 03/01/17 05:15 80 18 108/58 98 Mechanical Ventilator 50 03/01/17 05:00 83 18 109/81 98 Mechanical Ventilator 50 03/01/17 05:00 108/58 03/01/17 04:45 89 18 114/99 98 Mechanical Ventilator 50 03/01/17 04:30 84 18 107/47 98 Mechanical Ventilator 50 03/01/17 04:15 84 18 105/44 98 Mechanical Ventilator 50 03/01/17 04:00 50 03/01/17 04:00 81 03/01/17 04:00 99/51 03/01/17 04:00 98.0 85 18 99/51 98 Mechanical Ventilator 50 03/01/17 03:45 84 18 118/51 98 Mechanical Ventilator 50 03/01/17 03:31 88 21 100 Mechanical Ventilator 03/01/17 03:30 83 18 113/51 98 Mechanical Ventilator 50 03/01/17 03:15 85 21 50 03/01/17 03:15 85 19 99 Mechanical Ventilator 50 03/01/17 03:15 82 18 115/47 98 Mechanical Ventilator 50 03/01/17 03:01 84 18 99/58 98 Mechanical Ventilator 50 03/01/17 03:00 99/48 03/01/17 02:45 80 16 105/52 98 Mechanical Ventilator 50 03/01/17 02:30 75 16 100/43 98 Mechanical Ventilator 50 03/01/17 02:15 81 17 99/57 98 Mechanical Ventilator 50 03/01/17 02:00 84 16 101/49 98 Mechanical Ventilator 50 03/01/17 02:00 100/43 03/01/17 01:45 78 15 93/60 98 Mechanical Ventilator 50 03/01/17 01:30 82 17 93/43 98 Mechanical Ventilator 50 03/01/17 01:15 81 14 91/43 98 Mechanical Ventilator 50 03/01/17 01:00 78 14 93/38 98 Mechanical Ventilator 50 03/01/17 01:00 91/43 03/01/17 00:45 68 14 84/46 98 Mechanical Ventilator 50 03/01/17 00:37 73 25 50 03/01/17 00:30 65 14 93/43 98 Mechanical Ventilator 50 03/01/17 00:15 63 14 91/35 98 Mechanical Ventilator 50 03/01/17 00:00 50 03/01/17 00:00 98.0 47 14 71/33 98 Mechanical Ventilator 50 03/01/17 00:00 91/35 03/01/17 00:00 64 02/28/17 23:15 75/48 02/28/17 23:14 47 24 50 02/28/17 23:13 48 23 100 Mechanical Ventilator 02/28/17 23:11 51 19 100 Mechanical Ventilator 50 02/28/17 23:00 98.0 49 14 84/45 98 Mechanical Ventilator 50 02/28/17 22:00 98.0 50 14 73/46 98 Mechanical Ventilator 50 02/28/17 22:00 48 76/44 02/28/17 21:30 72 26 80 02/28/17 21:00 98.0 75 14 118/68 98 Mechanical Ventilator 50 02/28/17 21:00 50 02/28/17 20:25 75 24 100 02/28/17 20:00 75 02/28/17 20:00 98.0 75 14 123/28 98 Mechanical Ventilator 50 02/28/17 19:30 Mechanical Ventilator 02/28/17 19:30 Mechanical Ventilator 02/28/17 16:00 80 02/28/17 16:00 97.0 80 20 141/74 100 Non-Rebreather 100 02/28/17 15:35 74 20 100 Non-Rebreather 100 02/28/17 15:25 73 12 100 Non-Rebreather 15.0 100 02/28/17 15:25 100 02/28/17 15:24 77 18 100 15.0 02/28/17 15:07 74 126/76 Intake and Output 02/28/17 03/01/17 19:00 07:00 Intake Total 890 ml 1115.945 ml Output Total 1875 ml 820 ml Balance -985 ml 295.945 ml Free Water 0 ml IV Total 460 ml 695.945 ml Tube Feeding 330 ml 360 ml Blood Product 60 ml Other 100 ml Output Urine Total 850 ml 520 ml Stool Total 1025 ml 300 ml Laboratory Tests 02/28/17 20:30: White Blood Count 12.2H, Red Blood Count 2.70L, Hemoglobin 9.3L, Hematocrit 26.7L, Mean Corpuscular Volume 99, Mean Corpuscular Hemoglobin 34.6H, Mean Corpuscular Hemoglobin Concent 34.9, Red Cell Distribution Width 17.0H, Platelet Count 64L, Mean Platelet Volume 6.2L, Neutrophils (%) (Auto) , Lymphocytes (%) (Auto) , Monocytes (%) (Auto) , Eosinophils (%) (Auto) , Basophils (%) (Auto) , Differential Total Cells Counted 100, Neutrophils % ( Manual) 78H, Lymphocytes % (Manual) 12L, Monocytes % (Manual) 9, Eosinophils % ( Manual) 1, Basophils % (Manual) 0, Band Neutrophils 0, Platelet Estimate DecreasedL, Platelet Morphology Normal, Hypochromasia 1+, Anisocytosis 1+ 02/28/17 22:00: Arterial Blood pH 7.368, Arterial Blood Partial Pressure CO2 40.4, Arterial Blood Partial Pressure O2 135.6H, Arterial Blood HCO3 22.7, Arterial Blood Oxygen Saturation 98.1H, Arterial Blood Base Excess -2.4, Harley Test Positive 03/01/17 06:25: White Blood Count 17.9H, Red Blood Count 2.78L, Hemoglobin 9.1L, Hematocrit 26.6L, Mean Corpuscular Volume 96, Mean Corpuscular Hemoglobin 32.6H, Mean Corpuscular Hemoglobin Concent 34.0, Red Cell Distribution Width 16.5H, Platelet Count 86L, Mean Platelet Volume 6.1L, Neutrophils (%) (Auto) , Lymphocytes (%) (Auto) , Monocytes (%) (Auto) , Eosinophils (%) (Auto) , Basophils (%) (Auto) , Differential Total Cells Counted 100, Neutrophils % ( Manual) 77H, Lymphocytes % (Manual) 6L, Monocytes % (Manual) 13H, Eosinophils % (Manual) 3, Basophils % (Manual) 0, Band Neutrophils 1, Platelet Estimate DecreasedL, Platelet Morphology Normal, Anisocytosis 1+, Sodium Level 143, Potassium Level 3.4, Chloride Level 108H, Carbon Dioxide Level 20, Anion Gap 15 , Blood Urea Nitrogen 40H, Creatinine 1.6H, Estimat Glomerular Filtration Rate 33.7, Glucose Level 146H, Calcium Level 8.1L, Phosphorus Level 3.6, Magnesium Level 2.3, Total Bilirubin 1.2, Direct Bilirubin 0.4H, Aspartate Amino Transf ( AST/SGOT) 38, Alanine Aminotransferase (ALT/SGPT) 13, Alkaline Phosphatase 122H , Total Protein 7.2, Albumin 1.8L, Globulin 5.4, Albumin/Globulin Ratio 0.3L 03/01/17 10:20: Prothrombin Time 13.8H, Prothromb Time International Ratio 1.3H, Activated Partial Thromboplast Time 32 Height (Feet): 5 Height (Inches): 5.00 Weight (Pounds): 132 General Appearance: lethargic EENT: normal ENT inspection Neck: normal alignment Cardiovascular: normal peripheral pulses, normal rate, regular rhythm Respiratory/Chest: chest wall non-tender, lungs clear, normal breath sounds Abdomen: normal bowel sounds, non tender, soft Extremities: normal inspection Edema: no edema noted Arm (L), no edema noted Arm (R), no edema noted Leg (L), no edema noted Leg (R), no edema noted Pedal (L), no edema noted Pedal (R), no edema noted Generalized Neurologic: motor weakness Skin: normal pigmentation, warm/dry TERE GILES March 01, 2017 13:40
--- NOTE | 2017-03-01 13:55 | GI Progress Note ---
Assessment/Plan Problems: (1) Severe malnutrition ICD Codes: E43 - Unspecified severe protein-calorie malnutrition SNOMED: 57073989 (2) Altered mental state ICD Codes: R41.82 - Altered mental status, unspecified SNOMED: 379934853, 139415075 Qualifiers: Qualified Codes: R41.82 - Altered mental status, unspecified (3) Encephalopathy, multifactorial, hepatic/septic/renal (4) Encephalopathy ICD Codes: G93.40 - Encephalopathy, unspecified SNOMED: 41400314, 112300098 (5) Liver cirrhosis ICD Codes: K74.60 - Unspecified cirrhosis of liver SNOMED: 74658023 Qualifiers: Qualified Codes: K74.60 - Unspecified cirrhosis of liver Status Narrative Discussed with Dr. Gil. Assessment/Plan s/p PEG SUMMARY OF FINDINGS: 1. Status post successful percutaneous endoscopic gastrostomy placement. 2. Esophageal varices. 3. Portal hypertensive gastropathy. pt transferred to ICU for resp distress/bleeding noted from nares and mouth stable H&H OB stool negative hep panel negative monitor H&H, transfuse prn propranolol >> hold for SBP < 100 or HR < 60 elevated ammonia >> increased lactulose frequency + Xifaxan GTFs reglan and erythromycin has interactions with her current meds fu LFTS fu labs supportive care Subjective Subjective limited Objective Last 24 Hour Vital Signs Date Time Temp Pulse Resp B/P Pulse Ox O2 Delivery O2 Flow Rate FiO2 03/01/17 13:00 111/42 03/01/17 12:45 81 20 50 03/01/17 12:22 93/37 03/01/17 12:00 50 03/01/17 12:00 75 03/01/17 12:00 88/39 03/01/17 12:00 97.4 75 13 88/34 99 Mechanical Ventilator 50 03/01/17 11:00 105/41 03/01/17 11:00 77 17 105/41 100 Mechanical Ventilator 50 03/01/17 10:50 73 14 100 Mechanical Ventilator 03/01/17 10:48 70 14 50 03/01/17 10:40 70 14 100 Mechanical Ventilator 50 03/01/17 10:00 73 15 91/37 100 Mechanical Ventilator 50 03/01/17 10:00 91/37 03/01/17 09:20 89 23 50 03/01/17 09:00 78 18 124/52 100 Mechanical Ventilator 50 03/01/17 09:00 124/52 03/01/17 08:00 98.0 77 19 118/63 100 Mechanical Ventilator 50 03/01/17 08:00 50 03/01/17 08:00 118/63 03/01/17 08:00 77 03/01/17 07:11 73 14 100 Mechanical Ventilator 03/01/17 07:08 76 22 50 03/01/17 07:00 76 22 100 Mechanical Ventilator 50 03/01/17 07:00 79 17 118/56 100 Mechanical Ventilator 50 03/01/17 07:00 120/50 03/01/17 06:30 79 18 115/60 98 Mechanical Ventilator 50 03/01/17 06:15 79 18 110/69 98 Mechanical Ventilator 50 03/01/17 06:14 80 124/51 03/01/17 06:00 110/69 03/01/17 06:00 79 18 124/51 98 Mechanical Ventilator 50 03/01/17 05:49 79 22 50 03/01/17 05:45 79 18 111/56 98 Mechanical Ventilator 50 03/01/17 05:30 79 18 115/52 98 Mechanical Ventilator 50 03/01/17 05:15 80 18 108/58 98 Mechanical Ventilator 50 03/01/17 05:00 83 18 109/81 98 Mechanical Ventilator 50 03/01/17 05:00 108/58 03/01/17 04:45 89 18 114/99 98 Mechanical Ventilator 50 03/01/17 04:30 84 18 107/47 98 Mechanical Ventilator 50 03/01/17 04:15 84 18 105/44 98 Mechanical Ventilator 50 03/01/17 04:00 50 03/01/17 04:00 81 03/01/17 04:00 99/51 03/01/17 04:00 98.0 85 18 99/51 98 Mechanical Ventilator 50 03/01/17 03:45 84 18 118/51 98 Mechanical Ventilator 50 03/01/17 03:31 88 21 100 Mechanical Ventilator 03/01/17 03:30 83 18 113/51 98 Mechanical Ventilator 50 03/01/17 03:15 85 21 50 03/01/17 03:15 85 19 99 Mechanical Ventilator 50 03/01/17 03:15 82 18 115/47 98 Mechanical Ventilator 50 03/01/17 03:01 84 18 99/58 98 Mechanical Ventilator 50 03/01/17 03:00 99/48 03/01/17 02:45 80 16 105/52 98 Mechanical Ventilator 50 03/01/17 02:30 75 16 100/43 98 Mechanical Ventilator 50 03/01/17 02:15 81 17 99/57 98 Mechanical Ventilator 50 03/01/17 02:00 84 16 101/49 98 Mechanical Ventilator 50 03/01/17 02:00 100/43 03/01/17 01:45 78 15 93/60 98 Mechanical Ventilator 50 03/01/17 01:30 82 17 93/43 98 Mechanical Ventilator 50 03/01/17 01:15 81 14 91/43 98 Mechanical Ventilator 50 03/01/17 01:00 78 14 93/38 98 Mechanical Ventilator 50 03/01/17 01:00 91/43 03/01/17 00:45 68 14 84/46 98 Mechanical Ventilator 50 03/01/17 00:37 73 25 50 03/01/17 00:30 65 14 93/43 98 Mechanical Ventilator 50 03/01/17 00:15 63 14 91/35 98 Mechanical Ventilator 50 03/01/17 00:00 50 03/01/17 00:00 98.0 47 14 71/33 98 Mechanical Ventilator 50 03/01/17 00:00 91/35 03/01/17 00:00 64 02/28/17 23:15 75/48 02/28/17 23:14 47 24 50 02/28/17 23:13 48 23 100 Mechanical Ventilator 02/28/17 23:11 51 19 100 Mechanical Ventilator 50 02/28/17 23:00 98.0 49 14 84/45 98 Mechanical Ventilator 50 02/28/17 22:00 98.0 50 14 73/46 98 Mechanical Ventilator 50 02/28/17 22:00 48 76/44 02/28/17 21:30 72 26 80 02/28/17 21:00 98.0 75 14 118/68 98 Mechanical Ventilator 50 02/28/17 21:00 50 02/28/17 20:25 75 24 100 02/28/17 20:00 75 02/28/17 20:00 98.0 75 14 123/28 98 Mechanical Ventilator 50 02/28/17 19:30 Mechanical Ventilator 02/28/17 19:30 Mechanical Ventilator 02/28/17 16:00 80 02/28/17 16:00 97.0 80 20 141/74 100 Non-Rebreather 100 02/28/17 15:35 74 20 100 Non-Rebreather 100 02/28/17 15:25 73 12 100 Non-Rebreather 15.0 100 02/28/17 15:25 100 02/28/17 15:24 77 18 100 15.0 02/28/17 15:07 74 126/76 Intake and Output 02/28/17 03/01/17 19:00 07:00 Intake Total 890 ml 1133.635 ml Output Total 1875 ml 820 ml Balance -985 ml 313.635 ml Free Water 0 ml IV Total 460 ml 713.635 ml Tube Feeding 330 ml 360 ml Blood Product 60 ml Other 100 ml Output Urine Total 850 ml 520 ml Stool Total 1025 ml 300 ml Laboratory Tests Test 02/28/17 20:30 02/28/17 22:00 03/01/17 06:25 03/01/17 10:20 White Blood Count 12.2 K/UL (4.8-10.8) H 17.9 K/UL (4.8-10.8) H Red Blood Count 2.70 M/UL (4.20-5.40) L 2.78 M/UL (4.20-5.40) L Hemoglobin 9.3 G/DL (12.0-16.0) L 9.1 G/DL (12.0-16.0) L Hematocrit 26.7 % (37.0-47.0) L 26.6 % (37.0-47.0) L Mean Corpuscular Volume 99 FL (80-99) 96 FL (80-99) Mean Corpuscular Hemoglobin 34.6 PG (27.0-31.0) H 32.6 PG (27.0-31.0) H Mean Corpuscular Hemoglobin Concent 34.9 G/DL (32.0-36.0) 34.0 G/DL (32.0-36.0) Red Cell Distribution Width 17.0 % (11.6-14.8) H 16.5 % (11.6-14.8) H Platelet Count 64 K/UL (150-450) L 86 K/UL (150-450) L Mean Platelet Volume 6.2 FL (6.5-10.1) L 6.1 FL (6.5-10.1) L Neutrophils (%) (Auto) % (45.0-75.0) % (45.0-75.0) Lymphocytes (%) (Auto) % (20.0-45.0) % (20.0-45.0) Monocytes (%) (Auto) % (1.0-10.0) % (1.0-10.0) Eosinophils (%) (Auto) % (0.0-3.0) % (0.0-3.0) Basophils (%) (Auto) % (0.0-2.0) % (0.0-2.0) Differential Total Cells Counted 100 100 Neutrophils % (Manual) 78 % (45-75) H 77 % (45-75) H Lymphocytes % (Manual) 12 % (20-45) L 6 % (20-45) L Monocytes % (Manual) 9 % (1-10) 13 % (1-10) H Eosinophils % (Manual) 1 % (0-3) 3 % (0-3) Basophils % (Manual) 0 % (0-2) 0 % (0-2) Band Neutrophils 0 % (0-8) 1 % (0-8) Platelet Estimate Decreased L Decreased L Platelet Morphology Normal Normal Hypochromasia 1+ Anisocytosis 1+ 1+ Arterial Blood pH 7.368 (7.350-7.450) Arterial Blood Partial Pressure CO2 40.4 mmHg (35.0-45.0) Arterial Blood Partial Pressure O2 135.6 mmHg (75.0-100.0) H Arterial Blood HCO3 22.7 mmol/L (22.0-26.0) Arterial Blood Oxygen Saturation 98.1 % (92.0-98.0) H Arterial Blood Base Excess -2.4 Harley Test Positive Sodium Level 143 mEQ/L (135-145) Potassium Level 3.4 mEQ/L (3.4-4.9) Chloride Level 108 mEQ/L (98-107) H Carbon Dioxide Level 20 mEQ/L (20-30) Anion Gap 15 (5-15) Blood Urea Nitrogen 40 mg/dL (7-23) H Creatinine 1.6 mg/dL (0.5-0.9) H Estimat Glomerular Filtration Rate 33.7 mL/min (>60) Glucose Level 146 mg/dL (74-106) H Calcium Level 8.1 mg/dL (8.6-10.2) L Phosphorus Level 3.6 mg/dL (2.5-4.8) Magnesium Level 2.3 mg/dL (1.7-2.5) Total Bilirubin 1.2 mg/dL (0.0-1.2) Direct Bilirubin 0.4 mg/dL (0.1-0.3) H Aspartate Amino Transf (AST/SGOT) 38 U/L (5-40) Alanine Aminotransferase (ALT/SGPT) 13 U/L (3-33) Alkaline Phosphatase 122 U/L (35-104) H Total Protein 7.2 g/dL (6.6-8.7) Albumin 1.8 g/dL (3.5-5.2) L Globulin 5.4 g/dL Albumin/Globulin Ratio 0.3 (1.0-2.7) L Prothrombin Time 13.8 SEC (9.30-11.50) H Prothromb Time International Ratio 1.3 (0.9-1.1) H Activated Partial Thromboplast Time 32 SEC (23-33) Height (Feet): 5 Height (Inches): 5.00 Weight (Pounds): 132 Diamond Smith N.PSuraj March 01, 2017 13:55
--- NOTE | 2017-03-01 15:20 | Infectious Diseases Prog Note ---
Assessment/Plan Problems: (1) Sepsis Assessment & Plan: will send blood culture, and start ceftaroline with aztreonam empirically pending culture results. (2) HCAP (healthcare-associated pneumonia) Assessment & Plan: complicated with respiratory failure, will start ceftaroline and aztreonam empirically, send sputum culture (3) Acute respiratory failure Assessment & Plan: due to the above, intubated on mechanical ventilation, monitor CXR. investments manager is following (4) Candiduria Assessment & Plan: on fluconazole for two weeks, had renal US recently didn't show any stones as a source , laguerre catheter was changed. (5) Encephalopathy, multifactorial, hepatic/septic/renal Assessment & Plan: not improving, un clear etiology , probably multifactorial , with elevated ammonia level, on lactulose, neurology is following (6) Liver cirrhosis Assessment & Plan: with negative hepatitis panel, continue supportive care, avoid hepatotoxic meds, follow up with GI (7) Severe malnutrition Assessment & Plan: with dysphagia, had PEG tube today by GI, further recommendations as per GI (8) SHERIE (acute kidney injury) Assessment & Plan: due to hypotension, recommend fluids boluses and hydration, to keep SBP above 100, cortison level is ok . Subjective ROS Limited/Unobtainable: Yes Allergies: Coded Allergies: PENICILLINS (Verified Allergy, Unknown, 02/10/17) Subjective she is intubated, on mechanical ventilation, not on sedation, open eyes spontaneously. has dry blood in her oral cavity . afebrile Objective Vital Signs Last 24 Hour Vital Signs Date Time Temp Pulse Resp B/P Pulse Ox O2 Delivery O2 Flow Rate FiO2 03/01/17 14:48 84 114/40 03/01/17 13:00 111/42 03/01/17 12:45 81 20 50 03/01/17 12:22 93/37 03/01/17 12:00 50 03/01/17 12:00 75 03/01/17 12:00 88/39 03/01/17 12:00 97.4 75 13 88/34 99 Mechanical Ventilator 50 03/01/17 11:00 105/41 03/01/17 11:00 77 17 105/41 100 Mechanical Ventilator 50 03/01/17 10:50 73 14 100 Mechanical Ventilator 03/01/17 10:48 70 14 50 03/01/17 10:40 70 14 100 Mechanical Ventilator 50 03/01/17 10:00 73 15 91/37 100 Mechanical Ventilator 50 03/01/17 10:00 91/37 03/01/17 09:20 89 23 50 03/01/17 09:00 78 18 124/52 100 Mechanical Ventilator 50 03/01/17 09:00 124/52 03/01/17 08:00 98.0 77 19 118/63 100 Mechanical Ventilator 50 03/01/17 08:00 50 03/01/17 08:00 118/63 03/01/17 08:00 77 03/01/17 07:11 73 14 100 Mechanical Ventilator 03/01/17 07:08 76 22 50 03/01/17 07:00 76 22 100 Mechanical Ventilator 50 03/01/17 07:00 79 17 118/56 100 Mechanical Ventilator 50 03/01/17 07:00 120/50 03/01/17 06:30 79 18 115/60 98 Mechanical Ventilator 50 03/01/17 06:15 79 18 110/69 98 Mechanical Ventilator 50 03/01/17 06:14 80 124/51 03/01/17 06:00 110/69 03/01/17 06:00 79 18 124/51 98 Mechanical Ventilator 50 03/01/17 05:49 79 22 50 03/01/17 05:45 79 18 111/56 98 Mechanical Ventilator 50 03/01/17 05:30 79 18 115/52 98 Mechanical Ventilator 50 03/01/17 05:15 80 18 108/58 98 Mechanical Ventilator 50 03/01/17 05:00 83 18 109/81 98 Mechanical Ventilator 50 03/01/17 05:00 108/58 03/01/17 04:45 89 18 114/99 98 Mechanical Ventilator 50 03/01/17 04:30 84 18 107/47 98 Mechanical Ventilator 50 03/01/17 04:15 84 18 105/44 98 Mechanical Ventilator 50 03/01/17 04:00 50 03/01/17 04:00 81 03/01/17 04:00 99/51 03/01/17 04:00 98.0 85 18 99/51 98 Mechanical Ventilator 50 03/01/17 03:45 84 18 118/51 98 Mechanical Ventilator 50 03/01/17 03:31 88 21 100 Mechanical Ventilator 03/01/17 03:30 83 18 113/51 98 Mechanical Ventilator 50 03/01/17 03:15 85 21 50 03/01/17 03:15 85 19 99 Mechanical Ventilator 50 03/01/17 03:15 82 18 115/47 98 Mechanical Ventilator 50 03/01/17 03:01 84 18 99/58 98 Mechanical Ventilator 50 03/01/17 03:00 99/48 03/01/17 02:45 80 16 105/52 98 Mechanical Ventilator 50 03/01/17 02:30 75 16 100/43 98 Mechanical Ventilator 50 03/01/17 02:15 81 17 99/57 98 Mechanical Ventilator 50 03/01/17 02:00 84 16 101/49 98 Mechanical Ventilator 50 03/01/17 02:00 100/43 03/01/17 01:45 78 15 93/60 98 Mechanical Ventilator 50 03/01/17 01:30 82 17 93/43 98 Mechanical Ventilator 50 03/01/17 01:15 81 14 91/43 98 Mechanical Ventilator 50 03/01/17 01:00 78 14 93/38 98 Mechanical Ventilator 50 03/01/17 01:00 91/43 03/01/17 00:45 68 14 84/46 98 Mechanical Ventilator 50 03/01/17 00:37 73 25 50 03/01/17 00:30 65 14 93/43 98 Mechanical Ventilator 50 03/01/17 00:15 63 14 91/35 98 Mechanical Ventilator 50 03/01/17 00:00 50 03/01/17 00:00 98.0 47 14 71/33 98 Mechanical Ventilator 50 03/01/17 00:00 91/35 03/01/17 00:00 64 02/28/17 23:15 75/48 02/28/17 23:14 47 24 50 02/28/17 23:13 48 23 100 Mechanical Ventilator 02/28/17 23:11 51 19 100 Mechanical Ventilator 50 02/28/17 23:00 98.0 49 14 84/45 98 Mechanical Ventilator 50 02/28/17 22:00 98.0 50 14 73/46 98 Mechanical Ventilator 50 02/28/17 22:00 48 76/44 02/28/17 21:30 72 26 80 02/28/17 21:00 98.0 75 14 118/68 98 Mechanical Ventilator 50 02/28/17 21:00 50 02/28/17 20:25 75 24 100 02/28/17 20:00 75 02/28/17 20:00 98.0 75 14 123/28 98 Mechanical Ventilator 50 02/28/17 19:30 Mechanical Ventilator 02/28/17 19:30 Mechanical Ventilator 02/28/17 16:00 80 02/28/17 16:00 97.0 80 20 141/74 100 Non-Rebreather 100 02/28/17 15:35 74 20 100 Non-Rebreather 100 02/28/17 15:25 73 12 100 Non-Rebreather 15.0 100 02/28/17 15:25 100 02/28/17 15:24 77 18 100 15.0 Height (Feet): 5 Height (Inches): 5.00 Weight (Pounds): 132 General Appearance: WD/WN, no acute distress HEENT: normocephalic, atraumatic, anicteric, PERRL, supple, other - dry blood in her mouth Respiratory/Chest: no respiratory distress, no accessory muscle use, decreased breath sounds, crackles/rales Cardiovascular: normal peripheral pulses, normal rate, regular rhythm, no gallop/murmur, no JVD Abdomen: normal bowel sounds, soft, non tender, no organomegaly, non distended , no mass Extremities: no cyanosis, no clubbing Skin: no rash, no lesions Laboratory Tests Test 02/28/17 20:30 02/28/17 22:00 03/01/17 06:25 03/01/17 10:20 White Blood Count 12.2 K/UL (4.8-10.8) H 17.9 K/UL (4.8-10.8) H Red Blood Count 2.70 M/UL (4.20-5.40) L 2.78 M/UL (4.20-5.40) L Hemoglobin 9.3 G/DL (12.0-16.0) L 9.1 G/DL (12.0-16.0) L Hematocrit 26.7 % (37.0-47.0) L 26.6 % (37.0-47.0) L Mean Corpuscular Volume 99 FL (80-99) 96 FL (80-99) Mean Corpuscular Hemoglobin 34.6 PG (27.0-31.0) H 32.6 PG (27.0-31.0) H Mean Corpuscular Hemoglobin Concent 34.9 G/DL (32.0-36.0) 34.0 G/DL (32.0-36.0) Red Cell Distribution Width 17.0 % (11.6-14.8) H 16.5 % (11.6-14.8) H Platelet Count 64 K/UL (150-450) L 86 K/UL (150-450) L Mean Platelet Volume 6.2 FL (6.5-10.1) L 6.1 FL (6.5-10.1) L Neutrophils (%) (Auto) % (45.0-75.0) % (45.0-75.0) Lymphocytes (%) (Auto) % (20.0-45.0) % (20.0-45.0) Monocytes (%) (Auto) % (1.0-10.0) % (1.0-10.0) Eosinophils (%) (Auto) % (0.0-3.0) % (0.0-3.0) Basophils (%) (Auto) % (0.0-2.0) % (0.0-2.0) Differential Total Cells Counted 100 100 Neutrophils % (Manual) 78 % (45-75) H 77 % (45-75) H Lymphocytes % (Manual) 12 % (20-45) L 6 % (20-45) L Monocytes % (Manual) 9 % (1-10) 13 % (1-10) H Eosinophils % (Manual) 1 % (0-3) 3 % (0-3) Basophils % (Manual) 0 % (0-2) 0 % (0-2) Band Neutrophils 0 % (0-8) 1 % (0-8) Platelet Estimate Decreased L Decreased L Platelet Morphology Normal Normal Hypochromasia 1+ Anisocytosis 1+ 1+ Arterial Blood pH 7.368 (7.350-7.450) Arterial Blood Partial Pressure CO2 40.4 mmHg (35.0-45.0) Arterial Blood Partial Pressure O2 135.6 mmHg (75.0-100.0) H Arterial Blood HCO3 22.7 mmol/L (22.0-26.0) Arterial Blood Oxygen Saturation 98.1 % (92.0-98.0) H Arterial Blood Base Excess -2.4 Harley Test Positive Sodium Level 143 mEQ/L (135-145) Potassium Level 3.4 mEQ/L (3.4-4.9) Chloride Level 108 mEQ/L (98-107) H Carbon Dioxide Level 20 mEQ/L (20-30) Anion Gap 15 (5-15) Blood Urea Nitrogen 40 mg/dL (7-23) H Creatinine 1.6 mg/dL (0.5-0.9) H Estimat Glomerular Filtration Rate 33.7 mL/min (>60) Glucose Level 146 mg/dL (74-106) H Calcium Level 8.1 mg/dL (8.6-10.2) L Phosphorus Level 3.6 mg/dL (2.5-4.8) Magnesium Level 2.3 mg/dL (1.7-2.5) Total Bilirubin 1.2 mg/dL (0.0-1.2) Direct Bilirubin 0.4 mg/dL (0.1-0.3) H Aspartate Amino Transf (AST/SGOT) 38 U/L (5-40) Alanine Aminotransferase (ALT/SGPT) 13 U/L (3-33) Alkaline Phosphatase 122 U/L (35-104) H Total Protein 7.2 g/dL (6.6-8.7) Albumin 1.8 g/dL (3.5-5.2) L Globulin 5.4 g/dL Albumin/Globulin Ratio 0.3 (1.0-2.7) L Prothrombin Time 13.8 SEC (9.30-11.50) H Prothromb Time International Ratio 1.3 (0.9-1.1) H Activated Partial Thromboplast Time 32 SEC (23-33) Current Medications Medications (Trade) Dose Ordered Sig/Gill Route PRN Reason Start Time Stop Time Status Last Admin Dose Admin Albuterol/ Ipratropium (DuoNeb 0.5-3(2.5)mg/3ml) 3 ml Q4HRT HHN 02/28/17 23:00 03/05/17 22:59 03/01/17 10:46 Aripiprazole (Abilify) 10 mg DAILY NG 03/01/17 09:00 03/31/17 08:59 03/01/17 08:30 Aztreonam/Dextrose (Azactam/D5W) 110 ml @ 220 mls/hr Q8HR@0000,0800,1600 IVPB 5/23/17 16:00 03/08/17 15:59 Ceftaroline Fosamil 400 mg/ Sodium Chloride 55 ml @ 55 mls/hr EVERY 12 HOURS IVPB 03/01/17 17:00 03/08/17 16:59 Chlorhexidine Gluconate 1 applic 1 applic DAILY TOPIC 03/01/17 09:00 03/31/17 08:59 03/01/17 08:30 Dextrose (Dextrose 50%) STAT PRN IV Hypoglycemia 02/28/17 20:36 03/30/17 20:35 Dopamine HCl/ Dextrose (DOPamine 400mg/ 250ml) 250 ml @ 0 mls/hr Q24H IV 02/28/17 23:15 03/30/17 23:14 03/01/17 12:22 Fluconazole/ Sodium Chloride (Diflucan 200mg/ 100ml Premix) 100 ml @ 100 mls/hr Q24H IV 03/01/17 16:00 03/08/17 15:59 Haloperidol (Haldol) 5 mg Q4H PRN NG Agitation 02/28/17 20:30 03/30/17 20:29 Lactulose (Cephulac) 30 gm Q6HR GT 03/01/17 00:00 03/31/17 00:00 03/01/17 12:25 Lansoprazole (Prevacid) 30 mg ACBREAKFAST NG 03/01/17 06:30 03/31/17 06:29 03/01/17 06:15 Lorazepam (Ativan 2mg/ml 1ml) 1 mg Q4H PRN IV For Anxiety 02/28/17 20:30 03/07/17 20:29 03/01/17 14:42 Morphine Sulfate (Morphine Sulfate) 2 mg Q4H PRN IV SEVERE PAIN 02/28/17 20:30 03/07/17 20:29 Propranolol HCl (Inderal) 10 mg Q8HR GT 02/28/17 22:00 03/30/17 21:59 03/01/17 14:48 Quetiapine Fumarate (SEROquel) 100 mg QHS GT 02/28/17 21:00 03/30/17 20:59 02/28/17 21:00 Rifaximin 550 mg 550 mg Q12HR NG 02/28/17 21:00 03/07/17 20:59 03/01/17 08:30 Valproic Acid 500 mg 500 mg Q12HR GT 02/28/17 21:00 03/30/17 20:59 03/01/17 08:30 Pura Klein M.D. March 01, 2017 15:20
--- NOTE | 2017-03-01 16:18 | Cardiac Electrophysiology PN ---
Assessment/Plan Assessment/Plan 1. Septic Shock, on Dopamine 9 mcg and iv fluids and abx. DC Inderal 2. Sinus tachycardia due to sepsis. No fib or SVT. 3. Respiratory failure on Vent per Dr Mcgovern. 4. Cirrhosis of the liver, on lactulose and Xifaxan. DC Inderal 5. Dysphagia. S/P PEG 02/22/17. 6. Agitation. 7. ARF, Creatinine 1.6 last 4 days 8. Thrombocytopenia and anemia, S/P PRBC and platelet transfusion. 9. Schizophrenia, on Haldol. WALE RN. Subjective Subjective Was intubated last night and now in ICU on vent and on Dopamine 9 mcg in restraints Objective Last 24 Hour Vital Signs Date Time Temp Pulse Resp B/P Pulse Ox O2 Delivery O2 Flow Rate FiO2 03/01/17 15:36 80 14 100 Mechanical Ventilator 03/01/17 15:25 79 15 50 03/01/17 15:23 80 14 100 Mechanical Ventilator 50 03/01/17 15:00 106/35 03/01/17 14:48 84 114/40 03/01/17 14:00 115/45 03/01/17 13:00 111/42 03/01/17 12:45 81 20 50 03/01/17 12:22 93/37 03/01/17 12:00 50 03/01/17 12:00 75 03/01/17 12:00 88/39 03/01/17 12:00 97.4 75 13 88/34 99 Mechanical Ventilator 50 03/01/17 11:00 105/41 03/01/17 11:00 77 17 105/41 100 Mechanical Ventilator 50 03/01/17 10:50 73 14 100 Mechanical Ventilator 03/01/17 10:48 70 14 50 03/01/17 10:40 70 14 100 Mechanical Ventilator 50 03/01/17 10:00 73 15 91/37 100 Mechanical Ventilator 50 03/01/17 10:00 91/37 03/01/17 09:20 89 23 50 03/01/17 09:00 78 18 124/52 100 Mechanical Ventilator 50 03/01/17 09:00 124/52 03/01/17 08:00 98.0 77 19 118/63 100 Mechanical Ventilator 50 03/01/17 08:00 50 03/01/17 08:00 118/63 03/01/17 08:00 77 03/01/17 07:11 73 14 100 Mechanical Ventilator 03/01/17 07:08 76 22 50 03/01/17 07:00 76 22 100 Mechanical Ventilator 50 03/01/17 07:00 79 17 118/56 100 Mechanical Ventilator 50 03/01/17 07:00 120/50 03/01/17 06:30 79 18 115/60 98 Mechanical Ventilator 50 03/01/17 06:15 79 18 110/69 98 Mechanical Ventilator 50 03/01/17 06:14 80 124/51 03/01/17 06:00 110/69 03/01/17 06:00 79 18 124/51 98 Mechanical Ventilator 50 03/01/17 05:49 79 22 50 03/01/17 05:45 79 18 111/56 98 Mechanical Ventilator 50 03/01/17 05:30 79 18 115/52 98 Mechanical Ventilator 50 03/01/17 05:15 80 18 108/58 98 Mechanical Ventilator 50 03/01/17 05:00 83 18 109/81 98 Mechanical Ventilator 50 03/01/17 05:00 108/58 03/01/17 04:45 89 18 114/99 98 Mechanical Ventilator 50 03/01/17 04:30 84 18 107/47 98 Mechanical Ventilator 50 03/01/17 04:15 84 18 105/44 98 Mechanical Ventilator 50 03/01/17 04:00 50 03/01/17 04:00 81 03/01/17 04:00 99/51 03/01/17 04:00 98.0 85 18 99/51 98 Mechanical Ventilator 50 03/01/17 03:45 84 18 118/51 98 Mechanical Ventilator 50 03/01/17 03:31 88 21 100 Mechanical Ventilator 03/01/17 03:30 83 18 113/51 98 Mechanical Ventilator 50 03/01/17 03:15 85 21 50 03/01/17 03:15 85 19 99 Mechanical Ventilator 50 03/01/17 03:15 82 18 115/47 98 Mechanical Ventilator 50 03/01/17 03:01 84 18 99/58 98 Mechanical Ventilator 50 03/01/17 03:00 99/48 03/01/17 02:45 80 16 105/52 98 Mechanical Ventilator 50 03/01/17 02:30 75 16 100/43 98 Mechanical Ventilator 50 03/01/17 02:15 81 17 99/57 98 Mechanical Ventilator 50 03/01/17 02:00 84 16 101/49 98 Mechanical Ventilator 50 03/01/17 02:00 100/43 03/01/17 01:45 78 15 93/60 98 Mechanical Ventilator 50 03/01/17 01:30 82 17 93/43 98 Mechanical Ventilator 50 03/01/17 01:15 81 14 91/43 98 Mechanical Ventilator 50 03/01/17 01:00 78 14 93/38 98 Mechanical Ventilator 50 03/01/17 01:00 91/43 03/01/17 00:45 68 14 84/46 98 Mechanical Ventilator 50 03/01/17 00:37 73 25 50 03/01/17 00:30 65 14 93/43 98 Mechanical Ventilator 50 03/01/17 00:15 63 14 91/35 98 Mechanical Ventilator 50 03/01/17 00:00 50 03/01/17 00:00 98.0 47 14 71/33 98 Mechanical Ventilator 50 03/01/17 00:00 91/35 03/01/17 00:00 64 02/28/17 23:15 75/48 02/28/17 23:14 47 24 50 02/28/17 23:13 48 23 100 Mechanical Ventilator 02/28/17 23:11 51 19 100 Mechanical Ventilator 50 02/28/17 23:00 98.0 49 14 84/45 98 Mechanical Ventilator 50 02/28/17 22:00 98.0 50 14 73/46 98 Mechanical Ventilator 50 02/28/17 22:00 48 76/44 02/28/17 21:30 72 26 80 02/28/17 21:00 98.0 75 14 118/68 98 Mechanical Ventilator 50 02/28/17 21:00 50 02/28/17 20:25 75 24 100 02/28/17 20:00 75 02/28/17 20:00 98.0 75 14 123/28 98 Mechanical Ventilator 50 02/28/17 19:30 Mechanical Ventilator 02/28/17 19:30 Mechanical Ventilator Intake and Output 02/28/17 03/01/17 19:00 07:00 Intake Total 890 ml 1133.635 ml Output Total 1875 ml 820 ml Balance -985 ml 313.635 ml Free Water 0 ml IV Total 460 ml 713.635 ml Tube Feeding 330 ml 360 ml Blood Product 60 ml Other 100 ml Output Urine Total 850 ml 520 ml Stool Total 1025 ml 300 ml Laboratory Tests Test 02/28/17 20:30 02/28/17 22:00 03/01/17 06:25 03/01/17 10:20 White Blood Count 12.2 K/UL (4.8-10.8) H 17.9 K/UL (4.8-10.8) H Red Blood Count 2.70 M/UL (4.20-5.40) L 2.78 M/UL (4.20-5.40) L Hemoglobin 9.3 G/DL (12.0-16.0) L 9.1 G/DL (12.0-16.0) L Hematocrit 26.7 % (37.0-47.0) L 26.6 % (37.0-47.0) L Mean Corpuscular Volume 99 FL (80-99) 96 FL (80-99) Mean Corpuscular Hemoglobin 34.6 PG (27.0-31.0) H 32.6 PG (27.0-31.0) H Mean Corpuscular Hemoglobin Concent 34.9 G/DL (32.0-36.0) 34.0 G/DL (32.0-36.0) Red Cell Distribution Width 17.0 % (11.6-14.8) H 16.5 % (11.6-14.8) H Platelet Count 64 K/UL (150-450) L 86 K/UL (150-450) L Mean Platelet Volume 6.2 FL (6.5-10.1) L 6.1 FL (6.5-10.1) L Neutrophils (%) (Auto) % (45.0-75.0) % (45.0-75.0) Lymphocytes (%) (Auto) % (20.0-45.0) % (20.0-45.0) Monocytes (%) (Auto) % (1.0-10.0) % (1.0-10.0) Eosinophils (%) (Auto) % (0.0-3.0) % (0.0-3.0) Basophils (%) (Auto) % (0.0-2.0) % (0.0-2.0) Differential Total Cells Counted 100 100 Neutrophils % (Manual) 78 % (45-75) H 77 % (45-75) H Lymphocytes % (Manual) 12 % (20-45) L 6 % (20-45) L Monocytes % (Manual) 9 % (1-10) 13 % (1-10) H Eosinophils % (Manual) 1 % (0-3) 3 % (0-3) Basophils % (Manual) 0 % (0-2) 0 % (0-2) Band Neutrophils 0 % (0-8) 1 % (0-8) Platelet Estimate Decreased L Decreased L Platelet Morphology Normal Normal Hypochromasia 1+ Anisocytosis 1+ 1+ Arterial Blood pH 7.368 (7.350-7.450) Arterial Blood Partial Pressure CO2 40.4 mmHg (35.0-45.0) Arterial Blood Partial Pressure O2 135.6 mmHg (75.0-100.0) H Arterial Blood HCO3 22.7 mmol/L (22.0-26.0) Arterial Blood Oxygen Saturation 98.1 % (92.0-98.0) H Arterial Blood Base Excess -2.4 Harley Test Positive Sodium Level 143 mEQ/L (135-145) Potassium Level 3.4 mEQ/L (3.4-4.9) Chloride Level 108 mEQ/L (98-107) H Carbon Dioxide Level 20 mEQ/L (20-30) Anion Gap 15 (5-15) Blood Urea Nitrogen 40 mg/dL (7-23) H Creatinine 1.6 mg/dL (0.5-0.9) H Estimat Glomerular Filtration Rate 33.7 mL/min (>60) Glucose Level 146 mg/dL (74-106) H Calcium Level 8.1 mg/dL (8.6-10.2) L Phosphorus Level 3.6 mg/dL (2.5-4.8) Magnesium Level 2.3 mg/dL (1.7-2.5) Total Bilirubin 1.2 mg/dL (0.0-1.2) Direct Bilirubin 0.4 mg/dL (0.1-0.3) H Aspartate Amino Transf (AST/SGOT) 38 U/L (5-40) Alanine Aminotransferase (ALT/SGPT) 13 U/L (3-33) Alkaline Phosphatase 122 U/L (35-104) H Total Protein 7.2 g/dL (6.6-8.7) Albumin 1.8 g/dL (3.5-5.2) L Globulin 5.4 g/dL Albumin/Globulin Ratio 0.3 (1.0-2.7) L Prothrombin Time 13.8 SEC (9.30-11.50) H Prothromb Time International Ratio 1.3 (0.9-1.1) H Activated Partial Thromboplast Time 32 SEC (23-33) Objective HEAD AND NECK: No JVD. Orally intubated. LUNGS: Coarse rhonchi CARDIOVASCULAR: Regular S1 and S2 with no gallop or murmur. ABDOMEN: .PEG in place. EXTREMITIES: 1+ pitting edema. ELIUD LALA March 01, 2017 16:17
[2017-03-01] MEDS: Aztreonam Inj 2 GM in D5W 110 ML IVPB SCH (17:12)
[2017-03-01] MEDS ORDERED: 1/2 NS 1000ml IV ONE (17:55)
[2017-03-01] MEDS: Ceftaroline 400 MG in NS 55 ML IVPB SCH (18:31)
--- NOTE | 2017-03-01 20:37 | Nephrology Progress Note ---
Assessment/Plan Problem List: (1) SHERIE (acute kidney injury) (2) Hypotension (3) Hypernatremia Assessment: improving. (4) Shock (5) Psychiatric disorder (6) Encephalopathy, multifactorial, hepatic/septic/renal (7) UTI (urinary tract infection) Plan S/p G-tube placement, feeding per GI s/p transfusion, monitor H&H, transfuse PRN Monitor neuro status Monitor lytes, correct PRN Monitor renal function Continue IVF AM labs Subjective ROS Limited/Unobtainable: Yes Subjective In no apparent distress. Objective Objective Last 24 Hour Vital Signs Date Time Temp Pulse Resp B/P Pulse Ox O2 Delivery O2 Flow Rate FiO2 03/01/17 19:30 82 17 50 03/01/17 19:29 88 16 100 Mechanical Ventilator 03/01/17 19:29 83 19 100 Mechanical Ventilator 50 03/01/17 17:22 84 20 50 03/01/17 16:00 83 03/01/17 16:00 97.7 83 17 119/43 100 Mechanical Ventilator 50 03/01/17 16:00 121/43 03/01/17 16:00 50 03/01/17 15:36 80 14 100 Mechanical Ventilator 03/01/17 15:25 79 15 50 03/01/17 15:23 80 14 100 Mechanical Ventilator 50 03/01/17 15:00 106/35 03/01/17 15:00 81 14 101/35 100 Mechanical Ventilator 50 03/01/17 14:48 84 114/40 03/01/17 14:00 86 17 115/48 100 Mechanical Ventilator 50 03/01/17 14:00 115/45 03/01/17 13:00 111/42 03/01/17 13:00 76 17 111/42 100 Mechanical Ventilator 50 03/01/17 12:45 81 20 50 03/01/17 12:22 93/37 03/01/17 12:00 50 03/01/17 12:00 75 03/01/17 12:00 88/39 03/01/17 12:00 97.4 75 13 88/34 99 Mechanical Ventilator 50 03/01/17 11:00 105/41 03/01/17 11:00 77 17 105/41 100 Mechanical Ventilator 50 03/01/17 10:50 73 14 100 Mechanical Ventilator 03/01/17 10:48 70 14 50 03/01/17 10:40 70 14 100 Mechanical Ventilator 50 03/01/17 10:00 73 15 91/37 100 Mechanical Ventilator 50 03/01/17 10:00 91/37 03/01/17 09:20 89 23 50 03/01/17 09:00 78 18 124/52 100 Mechanical Ventilator 50 03/01/17 09:00 124/52 03/01/17 08:00 98.0 77 19 118/63 100 Mechanical Ventilator 50 03/01/17 08:00 50 03/01/17 08:00 118/63 03/01/17 08:00 77 03/01/17 07:11 73 14 100 Mechanical Ventilator 03/01/17 07:08 76 22 50 03/01/17 07:00 76 22 100 Mechanical Ventilator 50 03/01/17 07:00 79 17 118/56 100 Mechanical Ventilator 50 03/01/17 07:00 120/50 03/01/17 06:30 79 18 115/60 98 Mechanical Ventilator 50 03/01/17 06:15 79 18 110/69 98 Mechanical Ventilator 50 03/01/17 06:14 80 124/51 03/01/17 06:00 110/69 03/01/17 06:00 79 18 124/51 98 Mechanical Ventilator 50 03/01/17 05:49 79 22 50 03/01/17 05:45 79 18 111/56 98 Mechanical Ventilator 50 03/01/17 05:30 79 18 115/52 98 Mechanical Ventilator 50 03/01/17 05:15 80 18 108/58 98 Mechanical Ventilator 50 03/01/17 05:00 83 18 109/81 98 Mechanical Ventilator 50 03/01/17 05:00 108/58 03/01/17 04:45 89 18 114/99 98 Mechanical Ventilator 50 03/01/17 04:30 84 18 107/47 98 Mechanical Ventilator 50 03/01/17 04:15 84 18 105/44 98 Mechanical Ventilator 50 03/01/17 04:00 50 03/01/17 04:00 81 03/01/17 04:00 99/51 03/01/17 04:00 98.0 85 18 99/51 98 Mechanical Ventilator 50 03/01/17 03:45 84 18 118/51 98 Mechanical Ventilator 50 03/01/17 03:31 88 21 100 Mechanical Ventilator 03/01/17 03:30 83 18 113/51 98 Mechanical Ventilator 50 03/01/17 03:15 85 21 50 03/01/17 03:15 85 19 99 Mechanical Ventilator 50 03/01/17 03:15 82 18 115/47 98 Mechanical Ventilator 50 03/01/17 03:01 84 18 99/58 98 Mechanical Ventilator 50 03/01/17 03:00 99/48 03/01/17 02:45 80 16 105/52 98 Mechanical Ventilator 50 03/01/17 02:30 75 16 100/43 98 Mechanical Ventilator 50 03/01/17 02:15 81 17 99/57 98 Mechanical Ventilator 50 03/01/17 02:00 84 16 101/49 98 Mechanical Ventilator 50 03/01/17 02:00 100/43 03/01/17 01:45 78 15 93/60 98 Mechanical Ventilator 50 03/01/17 01:30 82 17 93/43 98 Mechanical Ventilator 50 03/01/17 01:15 81 14 91/43 98 Mechanical Ventilator 50 03/01/17 01:00 78 14 93/38 98 Mechanical Ventilator 50 03/01/17 01:00 91/43 03/01/17 00:45 68 14 84/46 98 Mechanical Ventilator 50 03/01/17 00:37 73 25 50 03/01/17 00:30 65 14 93/43 98 Mechanical Ventilator 50 03/01/17 00:15 63 14 91/35 98 Mechanical Ventilator 50 03/01/17 00:00 50 03/01/17 00:00 98.0 47 14 71/33 98 Mechanical Ventilator 50 03/01/17 00:00 91/35 03/01/17 00:00 64 02/28/17 23:15 75/48 02/28/17 23:14 47 24 50 02/28/17 23:13 48 23 100 Mechanical Ventilator 02/28/17 23:11 51 19 100 Mechanical Ventilator 50 02/28/17 23:00 98.0 49 14 84/45 98 Mechanical Ventilator 50 02/28/17 22:00 98.0 50 14 73/46 98 Mechanical Ventilator 50 02/28/17 22:00 48 76/44 02/28/17 21:30 72 26 80 02/28/17 21:00 98.0 75 14 118/68 98 Mechanical Ventilator 50 02/28/17 21:00 50 Intake and Output 02/28/17 03/01/17 19:00 07:00 Intake Total 890 ml 1133.635 ml Output Total 1875 ml 820 ml Balance -985 ml 313.635 ml Free Water 0 ml IV Total 460 ml 713.635 ml Tube Feeding 330 ml 360 ml Blood Product 60 ml Other 100 ml Output Urine Total 850 ml 520 ml Stool Total 1025 ml 300 ml Laboratory Tests 02/28/17 22:00: Arterial Blood pH 7.368, Arterial Blood Partial Pressure CO2 40.4, Arterial Blood Partial Pressure O2 135.6H, Arterial Blood HCO3 22.7, Arterial Blood Oxygen Saturation 98.1H, Arterial Blood Base Excess -2.4, Harley Test Positive 03/01/17 06:25: White Blood Count 17.9H, Red Blood Count 2.78L, Hemoglobin 9.1L, Hematocrit 26.6L, Mean Corpuscular Volume 96, Mean Corpuscular Hemoglobin 32.6H, Mean Corpuscular Hemoglobin Concent 34.0, Red Cell Distribution Width 16.5H, Platelet Count 86L, Mean Platelet Volume 6.1L, Neutrophils (%) (Auto) , Lymphocytes (%) (Auto) , Monocytes (%) (Auto) , Eosinophils (%) (Auto) , Basophils (%) (Auto) , Differential Total Cells Counted 100, Neutrophils % ( Manual) 77H, Lymphocytes % (Manual) 6L, Monocytes % (Manual) 13H, Eosinophils % (Manual) 3, Basophils % (Manual) 0, Band Neutrophils 1, Platelet Estimate DecreasedL, Platelet Morphology Normal, Anisocytosis 1+, Sodium Level 143, Potassium Level 3.4, Chloride Level 108H, Carbon Dioxide Level 20, Anion Gap 15 , Blood Urea Nitrogen 40H, Creatinine 1.6H, Estimat Glomerular Filtration Rate 33.7, Glucose Level 146H, Calcium Level 8.1L, Phosphorus Level 3.6, Magnesium Level 2.3, Total Bilirubin 1.2, Direct Bilirubin 0.4H, Aspartate Amino Transf ( AST/SGOT) 38, Alanine Aminotransferase (ALT/SGPT) 13, Alkaline Phosphatase 122H , Total Protein 7.2, Albumin 1.8L, Globulin 5.4, Albumin/Globulin Ratio 0.3L 03/01/17 10:20: Prothrombin Time 13.8H, Prothromb Time International Ratio 1.3H, Activated Partial Thromboplast Time 32 Height (Feet): 5 Height (Inches): 5.00 Weight (Pounds): 132 General Appearance: no apparent distress EENT: normal ENT inspection Neck: supple Cardiovascular: normal rate, no JVD Respiratory/Chest: no respiratory distress Abdomen: soft, other - PEG Genitourinary/Rectal: other - BANEGAS Extremities: normal inspection Neurologic: disoriented PATRICK ENRIQUEZ March 01, 2017 20:37
[2017-03-02] VITALS (54 sets, daily range): BP systolic 70–128; BP diastolic 31–63
[2017-03-02] MEDS: DuoNeb 0.5-3(2.5)mg/3ml neb HHN SCH ×5 (00:15→14:46)
[2017-03-02] MEDS: Aztreonam Inj 2 GM in D5W 110 ML IVPB SCH ×2 (00:40→08:40)
[2017-03-02] MEDS: Dyna-Hex 2% Top Sol 8oz TOPIC SCH (04:11)
[2017-03-02 05:30] LABS: MEAN CORPUSCULAR HEMOGLOBIN 32.6 PG (27.0-31.0); MEAN CORPUSCULAR HGB CONC 33.6 G/DL (32.0-36.0); MEAN CORPUSCULAR VOLUME 97 FL (80-99); MEAN PLATELET VOLUME 7.3 FL (6.5-10.1); PLATELET COUNT 41 K/UL (150-450); RED BLOOD COUNT 2.46 M/UL (4.20-5.40); RED CELL DISTRIBUTION WIDTH 16.5 % (11.6-14.8); WHITE BLOOD COUNT 8.1 K/UL (4.8-10.8)
[2017-03-02 06:02] LABS: ALBUMIN/GLOBULIN RATIO 0.3 (1.0-2.7); CALCIUM 8.1 mg/dL (8.6-10.2); CREATININE 1.5 mg/dL (0.5-0.9); GLOMERULAR FILTRATION RATE 36.4 mL/min (>60); PHOSPHORUS 3.6 mg/dL (2.5-4.8); TOTAL PROTEIN 6.7 g/dL (6.6-8.7)
[2017-03-02] MEDS: Lactulose 20gm/30ml UDC GT SCH (06:13)
[2017-03-02 06:19] LABS: POTASSIUM 2.7 mEQ/L (3.4-4.9)
[2017-03-02 08:22] LABS: ABG PCO2 36.2 mmHg (35.0-45.0)
[2017-03-02 08:23] LABS: ABG ALLEN TEST POSITIVE; ABG BASE EXCESS -4.8
[2017-03-02 08:29] LABS: ANISOCYTOSIS 1+; BAND NEUTROPHILS % (MANUAL) 0 % (0-8); BASOPHILS % (MANUAL) 0 % (0-2); EOSINOPHILS % (MANUAL) 1 % (0-3); HYPOCHROMASIA 3+; LYMPHOCYTES % (MANUAL) 14 % (20-45); METAMYELOCYTES % 1 % (0-0); MYELOCYTES % 1 % (0-0); NEUTROPHILS % (MANUAL) 71 % (45-75); PLATELET ESTIMATE DECREASED; PLATELET MORPHOLOGY NORMAL; TOTAL CELLS COUNTED 100
[2017-03-02] MEDS: ARIPiprazole 10mg tab NG SCH (08:40)
[2017-03-02] MEDS: Rifaximin 550mg tab NG SCH (08:40)
[2017-03-02] MEDS: Valproic Acid 250mg/5ml Liquid GT SCH (08:40)
[2017-03-02] MEDS: Ceftaroline 400 MG in NS 55 ML IVPB SCH (08:41)
[2017-03-02] MEDS ORDERED: NS 275ml ONE (10:40)
[2017-03-02] MEDS ORDERED: Tubing IV Secondary IV ONE (10:40)
--- NOTE | 2017-03-02 10:58 | General Progress Note ---
Progress Note Progress Note I had an extensive conversation about pts condition with her brother. She is in deep coma, on respiratory, with Gtube feeding and needing Dopamin drip to maintain the BP. She has been homeless previously and was living in an custodial recently. She has a very poor prognosis at this point. She might never come off the respirator considering her poor mental status. She won't ever be able to have any quality of life. I recommended comfort care and removal of all devices that are only slowing down the process of her . He agreed with comfort care and DNR and DNI. MANFRED YING March 02, 2017 10:58
[2017-03-02] MEDS ORDERED: Haloperidol 5mg/ml Inj IM PRN (11:00)
[2017-03-02] MEDS ORDERED: Glycopyrrolate 0.2mg/ml 1ml Vial IV PRN (11:00)
[2017-03-02] MEDS ORDERED: Morphine Sulfate 4mg/ml Inj SUBQ PRN (11:00)
[2017-03-02] MEDS ORDERED: Rate Change Narcotic Drip MISC PRN (11:00)
[2017-03-02] MEDS ORDERED: Prochlorperazine 10mg tab ORAL PRN (11:00)
[2017-03-02] MEDS ORDERED: Morphine Sulfate 10mg/ml Inj IVP ONE (11:00)
--- NOTE | 2017-03-02 11:37 | GI Progress Note ---
Assessment/Plan Problems: (1) Severe malnutrition ICD Codes: E43 - Unspecified severe protein-calorie malnutrition SNOMED: 66352047 (2) Altered mental state ICD Codes: R41.82 - Altered mental status, unspecified SNOMED: 098096764, 701875689 Qualifiers: Qualified Codes: R41.82 - Altered mental status, unspecified (3) Encephalopathy, multifactorial, hepatic/septic/renal (4) Encephalopathy ICD Codes: G93.40 - Encephalopathy, unspecified SNOMED: 88812738, 199018590 (5) Liver cirrhosis ICD Codes: K74.60 - Unspecified cirrhosis of liver SNOMED: 37389201 Qualifiers: Qualified Codes: K74.60 - Unspecified cirrhosis of liver Status: not improved, unchanged Status Narrative Discussed with Dr. Gil. Assessment/Plan comfort care Subjective Subjective limited Objective Last 24 Hour Vital Signs Date Time Temp Pulse Resp B/P Pulse Ox O2 Delivery O2 Flow Rate FiO2 03/02/17 11:33 Nasal Cannula 5.0 03/02/17 11:27 77 14 100 Mechanical Ventilator 03/02/17 11:20 83 17 40 03/02/17 11:14 82 14 100 Mechanical Ventilator 40 03/02/17 10:00 83 15 96/42 100 Mechanical Ventilator 50 03/02/17 09:30 83 16 97/44 100 Mechanical Ventilator 50 03/02/17 09:29 83 17 40 03/02/17 09:00 83 15 123/47 100 Mechanical Ventilator 50 03/02/17 08:45 82 15 128/50 100 Mechanical Ventilator 50 03/02/17 08:30 82 16 115/43 100 Mechanical Ventilator 50 03/02/17 08:15 83 14 99/43 100 Mechanical Ventilator 50 03/02/17 08:00 50 03/02/17 08:00 87 03/02/17 08:00 98.0 83 17 103/46 100 Mechanical Ventilator 50 03/02/17 07:45 83 14 104/43 100 Mechanical Ventilator 50 03/02/17 07:30 83 16 104/44 100 Mechanical Ventilator 50 03/02/17 07:21 90 18 100 Mechanical Ventilator 03/02/17 07:15 82 14 122/57 100 Mechanical Ventilator 50 03/02/17 07:05 82 14 50 03/02/17 07:00 82 14 100 Mechanical Ventilator 50 03/02/17 07:00 80 17 119/45 100 Mechanical Ventilator 50 17 06:45 86 17 111/47 100 Mechanical Ventilator 50 17 06:30 87 17 99/47 100 Mechanical Ventilator 50 17 06:15 88 17 94/49 100 Mechanical Ventilator 50 17 06:00 87 17 106/50 100 Mechanical Ventilator 50 03/02/17 05:45 83 17 106/54 100 Mechanical Ventilator 50 03/02/17 05:30 85 18 50 03/02/17 05:30 82 17 99/52 100 Mechanical Ventilator 50 03/02/17 05:15 85 17 90/47 100 Mechanical Ventilator 50 03/02/17 05:00 86 17 94/49 100 Mechanical Ventilator 50 03/02/17 04:45 86 17 104/50 100 Mechanical Ventilator 50 03/02/17 04:30 93 21 114/55 100 Mechanical Ventilator 50 03/02/17 04:15 95 17 104/54 100 Mechanical Ventilator 50 03/02/17 04:00 50 03/02/17 04:00 92 03/02/17 04:00 98.8 94 14 103/59 100 Mechanical Ventilator 50 03/02/17 03:45 86 20 100 Mechanical Ventilator 03/02/17 03:45 91 14 105/49 100 Mechanical Ventilator 50 03/02/17 03:30 92 14 95/46 100 Mechanical Ventilator 50 03/02/17 03:30 84 16 100 Mechanical Ventilator 50 03/02/17 03:30 84 16 50 03/02/17 03:15 93 14 88/46 100 Mechanical Ventilator 50 03/02/17 03:00 95 14 90/43 100 Mechanical Ventilator 50 03/02/17 02:45 98 14 106/57 100 Mechanical Ventilator 50 03/02/17 02:30 105 14 127/55 100 Mechanical Ventilator 50 03/02/17 02:15 100 14 108/54 100 Mechanical Ventilator 50 03/02/17 02:00 104 14 115/58 100 Mechanical Ventilator 50 03/02/17 01:45 104 14 91/51 100 Mechanical Ventilator 50 17 01:30 105 14 106/54 100 Mechanical Ventilator 50 03/02/17 01:30 104 17 50 03/02/ 01:15 105 14 109/53 100 Mechanical Ventilator 50 03/02/17 01:00 104 14 106/54 100 Mechanical Ventilator 50 03/02/17 00:45 104 14 103/53 100 Mechanical Ventilator 50 03/02/17 00:30 106 14 107/58 100 Mechanical Ventilator 50 03/02/17 00:15 115 14 115/58 100 Mechanical Ventilator 50 03/02/17 00:00 108 03/02/17 00:00 98.5 110 15 117/63 100 Mechanical Ventilator 50 03/02/17 00:00 50 03/01/17 23:55 111/51 03/01/17 23:45 114 15 100 Mechanical Ventilator 03/01/17 23:30 108 32 50 03/01/17 23:30 111 15 100 Mechanical Ventilator 50 03/01/17 22:45 115 14 111/51 100 Mechanical Ventilator 50 03/01/17 22:30 116 14 116/60 100 Mechanical Ventilator 50 03/01/17 22:15 115 14 110/56 100 Mechanical Ventilator 50 03/01/17 22:00 111 14 99/62 100 Mechanical Ventilator 50 03/01/17 21:45 93 14 102/42 100 Mechanical Ventilator 50 03/01/17 21:45 100 14 98/51 100 Mechanical Ventilator 50 03/01/17 21:30 81 14 92/42 100 Mechanical Ventilator 50 03/01/17 21:30 81 14 101/35 100 Mechanical Ventilator 50 03/01/17 21:22 94 22 50 03/01/17 21:15 93 14 98/54 100 Mechanical Ventilator 50 03/01/17 20:45 91 14 126/50 100 Mechanical Ventilator 50 03/01/17 20:30 87 14 131/53 100 Mechanical Ventilator 50 03/01/17 20:15 89 19 132/59 100 Mechanical Ventilator 50 03/01/17 20:00 50 03/01/17 20:00 90 03/01/17 20:00 98.1 91 14 118/51 100 Mechanical Ventilator 50 03/01/17 19:45 87 14 134/50 100 Mechanical Ventilator 50 03/01/17 19:30 82 17 50 03/01/17 19:30 85 19 146/58 100 Mechanical Ventilator 50 03/01/17 19:29 88 16 100 Mechanical Ventilator 03/01/17 19:29 83 19 100 Mechanical Ventilator 50 03/01/17 19:15 83 14 137/52 100 Mechanical Ventilator 50 03/01/17 19:00 86 16 126/44 100 Mechanical Ventilator 50 03/01/17 17:22 84 20 50 03/01/17 16:00 83 03/01/17 16:00 97.7 83 17 119/43 100 Mechanical Ventilator 50 03/01/17 16:00 121/43 03/01/17 16:00 50 03/01/17 15:36 80 14 100 Mechanical Ventilator 03/01/17 15:25 79 15 50 03/01/17 15:23 80 14 100 Mechanical Ventilator 50 03/01/17 15:00 106/35 03/01/17 15:00 81 14 101/35 100 Mechanical Ventilator 50 03/01/17 14:48 84 114/40 03/01/17 14:00 86 17 115/48 100 Mechanical Ventilator 50 03/01/17 14:00 115/45 03/01/17 13:00 111/42 03/01/17 13:00 76 17 111/42 100 Mechanical Ventilator 50 03/01/17 12:45 81 20 50 03/01/17 12:22 93/37 03/01/17 12:00 50 03/01/17 12:00 75 03/01/17 12:00 88/39 03/01/17 12:00 97.4 75 13 88/34 99 Mechanical Ventilator 50 Intake and Output 03/01/17 03/02/17 19:00 07:00 Intake Total 840.145 ml 798.620 ml Output Total 1235 ml 950 ml Balance -394.855 ml -151.380 ml IV Total 480.145 ml 388.620 ml Tube Feeding 360 ml 360 ml Other 50 ml Output Urine Total 1235 ml 950 ml # Bowel Movements 4 Laboratory Tests Test 03/02/17 03:35 03/02/17 07:50 White Blood Count 8.1 K/UL (4.8-10.8) # Red Blood Count 2.46 M/UL (4.20-5.40) L Hemoglobin 8.0 G/DL (12.0-16.0) L Hematocrit 23.9 % (37.0-47.0) L Mean Corpuscular Volume 97 FL (80-99) Mean Corpuscular Hemoglobin 32.6 PG (27.0-31.0) H Mean Corpuscular Hemoglobin Concent 33.6 G/DL (32.0-36.0) Red Cell Distribution Width 16.5 % (11.6-14.8) H Platelet Count 41 K/UL (150-450) #L Mean Platelet Volume 7.3 FL (6.5-10.1) Neutrophils (%) (Auto) % (45.0-75.0) Lymphocytes (%) (Auto) % (20.0-45.0) Monocytes (%) (Auto) % (1.0-10.0) Eosinophils (%) (Auto) % (0.0-3.0) Basophils (%) (Auto) % (0.0-2.0) Differential Total Cells Counted 100 Neutrophils % (Manual) 71 % (45-75) Lymphocytes % (Manual) 14 % (20-45) L Monocytes % (Manual) 12 % (1-10) H Eosinophils % (Manual) 1 % (0-3) Basophils % (Manual) 0 % (0-2) Metamyelocytes % 1 % (0-0) H Myelocytes % 1 % (0-0) H Band Neutrophils 0 % (0-8) Platelet Estimate Decreased L Platelet Morphology Normal Hypochromasia 3+ Anisocytosis 1+ Sodium Level 148 mEQ/L (135-145) H Potassium Level 2.7 mEQ/L (3.4-4.9) *L Chloride Level 112 mEQ/L (98-107) H Carbon Dioxide Level 20 mEQ/L (20-30) Anion Gap 16 (5-15) H Blood Urea Nitrogen 37 mg/dL (7-23) H Creatinine 1.5 mg/dL (0.5-0.9) H Estimat Glomerular Filtration Rate 36.4 mL/min (>60) Glucose Level 175 mg/dL (74-106) H Calcium Level 8.1 mg/dL (8.6-10.2) L Phosphorus Level 3.6 mg/dL (2.5-4.8) Magnesium Level 2.0 mg/dL (1.7-2.5) Total Bilirubin 0.9 mg/dL (0.0-1.2) Aspartate Amino Transf (AST/SGOT) 26 U/L (5-40) Alanine Aminotransferase (ALT/SGPT) 11 U/L (3-33) Alkaline Phosphatase 131 U/L (35-104) H Total Protein 6.7 g/dL (6.6-8.7) Albumin 1.6 g/dL (3.5-5.2) L Globulin 5.1 g/dL Albumin/Globulin Ratio 0.3 (1.0-2.7) L Arterial Blood pH 7.362 (7.350-7.450) Arterial Blood Partial Pressure CO2 36.2 mmHg (35.0-45.0) Arterial Blood Partial Pressure O2 143.8 mmHg (75.0-100.0) H Arterial Blood HCO3 20.1 mmol/L (22.0-26.0) L Arterial Blood Oxygen Saturation 98.0 % (92.0-98.0) Arterial Blood Base Excess -4.8 Harley Test Positive Microbiology Date/Time Source Procedure Growth Status 03/02/17 02:00 Sputum Induced Gram Stain - Final Resulted 03/02/17 02:00 Sputum Induced Sputum Culture Pending Resulted Height (Feet): 5 Height (Inches): 5.00 Weight (Pounds): 140 General Appearance: no apparent distress Cardiovascular: normal rate Respiratory/Chest: other - mech vent Abdominal Exam: GT site - c/d/i Diamond Smith N.P. March 02, 2017 11:37
[2017-03-02] MEDS: PCA Morphine 1mg/ml 30 ML IV PRN ×2 (11:43→17:58)
[2017-03-02] MEDS ORDERED: Artificial Tears 1.4% Op Soln BOTH EYES PRN (12:00)
--- NOTE | 2017-03-02 13:49 | General Progress Note ---
Assessment/Plan Problem List: (1) Liver cirrhosis ICD Codes: K74.60 - Unspecified cirrhosis of liver SNOMED: 22299814 Qualifiers: Qualified Codes: K74.60 - Unspecified cirrhosis of liver (2) Encephalopathy ICD Codes: G93.40 - Encephalopathy, unspecified SNOMED: 56981495, 240854507 (3) UTI (urinary tract infection) ICD Codes: N39.0 - Urinary tract infection, site not specified SNOMED: 84556817 Qualifiers: Qualified Codes: N30.01 - Acute cystitis with hematuria (4) Encephalopathy, multifactorial, hepatic/septic/renal (5) Altered mental state ICD Codes: R41.82 - Altered mental status, unspecified SNOMED: 741091831, 878161811 Qualifiers: Qualified Codes: R41.82 - Altered mental status, unspecified (6) Severe malnutrition ICD Codes: E43 - Unspecified severe protein-calorie malnutrition SNOMED: 21788970 (7) Psychiatric disorder ICD Codes: F99 - Mental disorder, not otherwise specified SNOMED: 13056954, 618538937 Status: unchanged Assessment/Plan s/p terminal extubation, comfort measures Subjective Constitutional: Reports: weakness Respiratory: Reports: shortness of breath Allergies: Coded Allergies: PENICILLINS (Verified Allergy, Unknown, 02/10/17) All Systems: reviewed and negative except above Subjective o2 nc in icu Objective Last 24 Hour Vital Signs Date Time Temp Pulse Resp B/P Pulse Ox O2 Delivery O2 Flow Rate FiO2 03/02/17 13:00 82 23 89/39 95 Nasal Cannula 2.0 03/02/17 12:00 18 03/02/17 12:00 97.1 80 20 70/31 93 Nasal Cannula 2.0 03/02/17 12:00 80 03/02/17 11:43 19 03/02/17 11:37 95 Nasal Cannula 5.0 03/02/17 11:36 Nasal Cannula 5.0 03/02/17 11:33 Nasal Cannula 5.0 03/02/17 11:30 83 21 74/31 94 Nasal Cannula 2.0 03/02/17 11:27 77 14 100 Mechanical Ventilator 03/02/17 11:20 83 17 40 03/02/17 11:14 82 14 100 Mechanical Ventilator 40 03/02/17 11:00 82 15 75/40 97 Mechanical Ventilator 50 03/02/17 10:30 86 17 106/61 98 Mechanical Ventilator 50 5 10:00 83 15 96/42 100 Mechanical Ventilator 50 03/02/17 09:30 83 16 97/44 100 Mechanical Ventilator 50 03/02/17 09:29 83 17 40 03/02/17 09:00 83 15 123/47 100 Mechanical Ventilator 50 03/02/17 08:45 82 15 128/50 100 Mechanical Ventilator 50 03/02/17 08:30 82 16 115/43 100 Mechanical Ventilator 50 03/02/17 08:15 83 14 99/43 100 Mechanical Ventilator 50 03/02/17 08:00 50 03/02/17 08:00 87 03/02/17 08:00 98.0 83 17 103/46 100 Mechanical Ventilator 50 03/02/17 07:45 83 14 104/43 100 Mechanical Ventilator 50 03/02/17 07:30 83 16 104/44 100 Mechanical Ventilator 50 03/02/17 07:21 90 18 100 Mechanical Ventilator 03/02/17 07:15 82 14 122/57 100 Mechanical Ventilator 50 03/02/17 07:05 82 14 50 03/02/17 07:00 82 14 100 Mechanical Ventilator 50 03/02/17 07:00 80 17 119/45 100 Mechanical Ventilator 50 03/02/17 06:45 86 17 111/47 100 Mechanical Ventilator 50 03/02/17 06:30 87 17 99/47 100 Mechanical Ventilator 50 03/02/17 06:15 88 17 94/49 100 Mechanical Ventilator 50 03/02/17 06:00 87 17 106/50 100 Mechanical Ventilator 50 03/02/17 05:45 83 17 106/54 100 Mechanical Ventilator 50 03/02/17 05:30 85 18 50 03/02/17 05:30 82 17 99/52 100 Mechanical Ventilator 50 03/02/17 05:15 85 17 90/47 100 Mechanical Ventilator 50 03/02/17 05:00 86 17 94/49 100 Mechanical Ventilator 50 03/02/17 04:45 86 17 104/50 100 Mechanical Ventilator 50 03/02/17 04:30 93 21 114/55 100 Mechanical Ventilator 50 03/02/17 04:15 95 17 104/54 100 Mechanical Ventilator 50 03/02/17 04:00 50 03/02/17 04:00 92 03/02/17 04:00 98.8 94 14 103/59 100 Mechanical Ventilator 50 5/24/17 03:45 86 20 100 Mechanical Ventilator 524/17 03:45 91 14 105/49 100 Mechanical Ventilator 50 03/02/17 03:30 92 14 95/46 100 Mechanical Ventilator 50 17 03:30 84 16 100 Mechanical Ventilator 50 17 03:30 84 16 50 03/02/17 03:15 93 14 88/46 100 Mechanical Ventilator 50 17 03:00 95 14 90/43 100 Mechanical Ventilator 50 03/02/17 02:45 98 14 106/57 100 Mechanical Ventilator 50 17 02:30 105 14 127/55 100 Mechanical Ventilator 50 17 02:15 100 14 108/54 100 Mechanical Ventilator 50 03/02/17 02:00 104 14 115/58 100 Mechanical Ventilator 50 03/02/17 01:45 104 14 91/51 100 Mechanical Ventilator 50 03/02/17 01:30 105 14 106/54 100 Mechanical Ventilator 50 03/02/17 01:30 104 17 50 03/02/17 01:15 105 14 109/53 100 Mechanical Ventilator 50 03/02/17 01:00 104 14 106/54 100 Mechanical Ventilator 50 03/02/17 00:45 104 14 103/53 100 Mechanical Ventilator 50 03/02/17 00:30 106 14 107/58 100 Mechanical Ventilator 50 03/02/17 00:15 115 14 115/58 100 Mechanical Ventilator 50 03/02/17 00:00 108 03/02/17 00:00 98.5 110 15 117/63 100 Mechanical Ventilator 50 03/02/17 00:00 50 03/01/17 23:55 111/51 03/01/17 23:45 114 15 100 Mechanical Ventilator 03/01/17 23:30 108 32 50 03/01/17 23:30 111 15 100 Mechanical Ventilator 50 03/01/17 22:45 115 14 111/51 100 Mechanical Ventilator 50 03/01/17 22:30 116 14 116/60 100 Mechanical Ventilator 50 17 22:15 115 14 110/56 100 Mechanical Ventilator 50 03/01/17 22:00 111 14 99/62 100 Mechanical Ventilator 50 03/01/17 21:45 93 14 102/42 100 Mechanical Ventilator 50 03/01/17 21:45 100 14 98/51 100 Mechanical Ventilator 50 03/01/17 21:30 81 14 92/42 100 Mechanical Ventilator 50 03/01/17 21:30 81 14 101/35 100 Mechanical Ventilator 50 03/01/17 21:22 94 22 50 03/01/17 21:15 93 14 98/54 100 Mechanical Ventilator 50 03/01/17 20:45 91 14 126/50 100 Mechanical Ventilator 50 03/01/17 20:30 87 14 131/53 100 Mechanical Ventilator 50 03/01/17 20:15 89 19 132/59 100 Mechanical Ventilator 50 03/01/17 20:00 50 03/01/17 20:00 90 03/01/17 20:00 98.1 91 14 118/51 100 Mechanical Ventilator 50 03/01/17 19:45 87 14 134/50 100 Mechanical Ventilator 50 03/01/17 19:30 82 17 50 03/01/17 19:30 85 19 146/58 100 Mechanical Ventilator 50 03/01/17 19:29 88 16 100 Mechanical Ventilator 03/01/17 19:29 83 19 100 Mechanical Ventilator 50 03/01/17 19:15 83 14 137/52 100 Mechanical Ventilator 50 03/01/17 19:00 86 16 126/44 100 Mechanical Ventilator 50 03/01/17 17:22 84 20 50 03/01/17 16:00 83 03/01/17 16:00 97.7 83 17 119/43 100 Mechanical Ventilator 50 03/01/17 16:00 121/43 03/01/17 16:00 50 03/01/17 15:36 80 14 100 Mechanical Ventilator 03/01/17 15:25 79 15 50 03/01/17 15:23 80 14 100 Mechanical Ventilator 50 03/01/17 15:00 106/35 03/01/17 15:00 81 14 101/35 100 Mechanical Ventilator 50 03/01/17 14:48 84 114/40 03/01/17 14:00 86 17 115/48 100 Mechanical Ventilator 50 03/01/17 14:00 115/45 Intake and Output 03/01/17 03/02/17 19:00 07:00 Intake Total 840.145 ml 798.620 ml Output Total 1235 ml 950 ml Balance -394.855 ml -151.380 ml IV Total 480.145 ml 388.620 ml Tube Feeding 360 ml 360 ml Other 50 ml Output Urine Total 1235 ml 950 ml # Bowel Movements 4 Laboratory Tests 03/02/17 03:35: White Blood Count 8.1#, Red Blood Count 2.46L, Hemoglobin 8.0L, Hematocrit 23.9L , Mean Corpuscular Volume 97, Mean Corpuscular Hemoglobin 32.6H, Mean Corpuscular Hemoglobin Concent 33.6, Red Cell Distribution Width 16.5H, Platelet Count 41#L, Mean Platelet Volume 7.3, Neutrophils (%) (Auto) , Lymphocytes (%) (Auto) , Monocytes (%) (Auto) , Eosinophils (%) (Auto) , Basophils (%) (Auto) , Differential Total Cells Counted 100, Neutrophils % ( Manual) 71, Lymphocytes % (Manual) 14L, Monocytes % (Manual) 12H, Eosinophils % (Manual) 1, Basophils % (Manual) 0, Metamyelocytes % 1H, Myelocytes % 1H, Band Neutrophils 0, Platelet Estimate DecreasedL, Platelet Morphology Normal, Hypochromasia 3+, Anisocytosis 1+, Sodium Level 148H, Potassium Level 2.7*L, Chloride Level 112H, Carbon Dioxide Level 20, Anion Gap 16H, Blood Urea Nitrogen 37H, Creatinine 1.5H, Estimat Glomerular Filtration Rate 36.4, Glucose Level 175H, Calcium Level 8.1L, Phosphorus Level 3.6, Magnesium Level 2.0, Total Bilirubin 0.9, Aspartate Amino Transf (AST/SGOT) 26, Alanine Aminotransferase (ALT/SGPT) 11, Alkaline Phosphatase 131H, Total Protein 6.7, Albumin 1.6L, Globulin 5.1, Albumin/Globulin Ratio 0.3L 03/02/17 07:50: Arterial Blood pH 7.362, Arterial Blood Partial Pressure CO2 36.2, Arterial Blood Partial Pressure O2 143.8H, Arterial Blood HCO3 20.1L, Arterial Blood Oxygen Saturation 98.0, Arterial Blood Base Excess -4.8, Harley Test Positive Height (Feet): 5 Height (Inches): 5.00 Weight (Pounds): 140 General Appearance: lethargic EENT: normal ENT inspection Neck: normal alignment Cardiovascular: normal peripheral pulses, normal rate, regular rhythm Respiratory/Chest: chest wall non-tender, lungs clear, normal breath sounds Abdomen: normal bowel sounds, non tender, soft Extremities: normal inspection Edema: no edema noted Arm (L), no edema noted Arm (R), no edema noted Leg (L), no edema noted Leg (R), no edema noted Pedal (L), no edema noted Pedal (R), no edema noted Generalized Neurologic: motor weakness Skin: normal pigmentation, warm/dry TERE GILES March 02, 2017 13:49
--- NOTE | 2017-03-02 14:21 | Cardiac Electrophysiology PN ---
Assessment/Plan Assessment/Plan 1. Septic Shock Off pressors due to comfort care status now. 2. Sinus tachycardia due to sepsis. No fib or SVT. 3. Respiratory failure , Terminally extubated today per Dr Mcgovern. 4. Cirrhosis of the liver, 5. Dysphagia. S/P PEG 02/22/17. 6. Agitation. 7. ARF, 8. Thrombocytopenia and anemia, S/P PRBC and platelet transfusion. 9. Schizophrenia 10 Comfort care. DW RN Will sign off Subjective Subjective Terminally extubated. Now on comfort care on morphine drip. Objective Last 24 Hour Vital Signs Date Time Temp Pulse Resp B/P Pulse Ox O2 Delivery O2 Flow Rate FiO2 03/02/17 14:00 78 8 74/40 97 Nasal Cannula 2.0 03/02/17 13:00 82 23 89/39 95 Nasal Cannula 2.0 03/02/17 12:13 97.1 03/02/17 12:00 18 03/02/17 12:00 97.1 80 20 70/31 93 Nasal Cannula 2.0 03/02/17 12:00 80 03/02/17 11:43 19 03/02/17 11:37 95 Nasal Cannula 5.0 03/02/17 11:36 Nasal Cannula 5.0 03/02/17 11:33 Nasal Cannula 5.0 03/02/17 11:30 83 21 74/31 94 Nasal Cannula 2.0 03/02/17 11:27 77 14 100 Mechanical Ventilator 03/02/17 11:20 83 17 40 03/02/17 11:14 82 14 100 Mechanical Ventilator 40 03/02/17 11:00 82 15 75/40 97 Mechanical Ventilator 50 03/02/17 10:30 86 17 106/61 98 Mechanical Ventilator 50 03/02/17 10:00 83 15 96/42 100 Mechanical Ventilator 50 03/02/17 09:30 83 16 97/44 100 Mechanical Ventilator 50 03/02/17 09:29 83 17 40 03/02/17 09:00 83 15 123/47 100 Mechanical Ventilator 50 03/02/17 08:45 82 15 128/50 100 Mechanical Ventilator 50 03/02/17 08:30 82 16 115/43 100 Mechanical Ventilator 50 03/02/17 08:15 83 14 99/43 100 Mechanical Ventilator 50 03/02/17 08:00 50 03/02/17 08:00 87 03/02/17 08:00 98.0 83 17 103/46 100 Mechanical Ventilator 50 03/02/17 07:45 83 14 104/43 100 Mechanical Ventilator 50 03/02/17 07:30 83 16 104/44 100 Mechanical Ventilator 50 03/02/17 07:21 90 18 100 Mechanical Ventilator 517 07:15 82 14 122/57 100 Mechanical Ventilator 50 03/02/17 07:05 82 14 50 03/02/17 07:00 82 14 100 Mechanical Ventilator 50 03/02/17 07:00 80 17 119/45 100 Mechanical Ventilator 50 17 06:45 86 17 111/47 100 Mechanical Ventilator 50 03/02/17 06:30 87 17 99/47 100 Mechanical Ventilator 50 03/02/17 06:15 88 17 94/49 100 Mechanical Ventilator 50 03/02/17 06:00 87 17 106/50 100 Mechanical Ventilator 50 03/02/17 05:45 83 17 106/54 100 Mechanical Ventilator 50 03/02/17 05:30 85 18 50 03/02/17 05:30 82 17 99/52 100 Mechanical Ventilator 50 03/02/17 05:15 85 17 90/47 100 Mechanical Ventilator 50 03/02/17 05:00 86 17 94/49 100 Mechanical Ventilator 50 03/02/17 04:45 86 17 104/50 100 Mechanical Ventilator 50 03/02/17 04:30 93 21 114/55 100 Mechanical Ventilator 50 03/02/17 04:15 95 17 104/54 100 Mechanical Ventilator 50 03/02/17 04:00 50 03/02/17 04:00 92 03/02/17 04:00 98.8 94 14 103/59 100 Mechanical Ventilator 50 03/02/17 03:45 86 20 100 Mechanical Ventilator 03/02/17 03:45 91 14 105/49 100 Mechanical Ventilator 50 03/02/ 03:30 92 14 95/46 100 Mechanical Ventilator 50 03/02/17 03:30 84 16 100 Mechanical Ventilator 50 03/02/17 03:30 84 16 50 03/02/17 03:15 93 14 88/46 100 Mechanical Ventilator 50 03/02/17 03:00 95 14 90/43 100 Mechanical Ventilator 50 17 02:45 98 14 106/57 100 Mechanical Ventilator 50 17 02:30 105 14 127/55 100 Mechanical Ventilator 50 03/02/17 02:15 100 14 108/54 100 Mechanical Ventilator 50 03/02/17 02:00 104 14 115/58 100 Mechanical Ventilator 50 17 01:45 104 14 91/51 100 Mechanical Ventilator 50 03/02/17 01:30 105 14 106/54 100 Mechanical Ventilator 50 03/02/17 01:30 104 17 50 03/02/17 01:15 105 14 109/53 100 Mechanical Ventilator 50 03/02/17 01:00 104 14 106/54 100 Mechanical Ventilator 50 03/02/17 00:45 104 14 103/53 100 Mechanical Ventilator 50 03/02/17 00:30 106 14 107/58 100 Mechanical Ventilator 50 03/02/17 00:15 115 14 115/58 100 Mechanical Ventilator 50 03/02/17 00:00 108 03/02/17 00:00 98.5 110 15 117/63 100 Mechanical Ventilator 50 03/02/17 00:00 50 03/01/17 23:55 111/51 03/01/17 23:45 114 15 100 Mechanical Ventilator 03/01/17 23:30 108 32 50 03/01/ 23:30 111 15 100 Mechanical Ventilator 50 03/01/17 22:45 115 14 111/51 100 Mechanical Ventilator 50 03/01/ 22:30 116 14 116/60 100 Mechanical Ventilator 50 03/01/17 22:15 115 14 110/56 100 Mechanical Ventilator 50 03/01/ 22:00 111 14 99/62 100 Mechanical Ventilator 50 03/01/17 21:45 93 14 102/42 100 Mechanical Ventilator 50 03/01/17 21:45 100 14 98/51 100 Mechanical Ventilator 50 17 21:30 81 14 92/42 100 Mechanical Ventilator 50 03/01/17 21:30 81 14 101/35 100 Mechanical Ventilator 50 03/01/17 21:22 94 22 50 5/17 21:15 93 14 98/54 100 Mechanical Ventilator 50 03/01/17 20:45 91 14 126/50 100 Mechanical Ventilator 50 03/01/17 20:30 87 14 131/53 100 Mechanical Ventilator 50 03/01/17 20:15 89 19 132/59 100 Mechanical Ventilator 50 03/01/17 20:00 50 03/01/17 20:00 90 17 20:00 98.1 91 14 118/51 100 Mechanical Ventilator 50 5/23/17 19:45 87 14 134/50 100 Mechanical Ventilator 50 03/01/17 19:30 82 17 50 03/01/17 19:30 85 19 146/58 100 Mechanical Ventilator 50 03/01/17 19:29 88 16 100 Mechanical Ventilator 03/01/17 19:29 83 19 100 Mechanical Ventilator 50 03/01/17 19:15 83 14 137/52 100 Mechanical Ventilator 50 03/01/17 19:00 86 16 126/44 100 Mechanical Ventilator 50 03/01/17 17:22 84 20 50 03/01/17 16:00 83 03/01/17 16:00 97.7 83 17 119/43 100 Mechanical Ventilator 50 03/01/17 16:00 121/43 03/01/17 16:00 50 03/01/17 15:36 80 14 100 Mechanical Ventilator 03/01/17 15:25 79 15 50 03/01/17 15:23 80 14 100 Mechanical Ventilator 50 03/01/17 15:00 106/35 03/01/17 15:00 81 14 101/35 100 Mechanical Ventilator 50 03/01/17 14:48 84 114/40 Intake and Output 03/01/17 03/02/17 19:00 07:00 Intake Total 840.145 ml 798.620 ml Output Total 1235 ml 950 ml Balance -394.855 ml -151.380 ml IV Total 480.145 ml 388.620 ml Tube Feeding 360 ml 360 ml Other 50 ml Output Urine Total 1235 ml 950 ml # Bowel Movements 4 Laboratory Tests Test 03/02/17 03:35 03/02/17 07:50 White Blood Count 8.1 K/UL (4.8-10.8) # Red Blood Count 2.46 M/UL (4.20-5.40) L Hemoglobin 8.0 G/DL (12.0-16.0) L Hematocrit 23.9 % (37.0-47.0) L Mean Corpuscular Volume 97 FL (80-99) Mean Corpuscular Hemoglobin 32.6 PG (27.0-31.0) H Mean Corpuscular Hemoglobin Concent 33.6 G/DL (32.0-36.0) Red Cell Distribution Width 16.5 % (11.6-14.8) H Platelet Count 41 K/UL (150-450) #L Mean Platelet Volume 7.3 FL (6.5-10.1) Neutrophils (%) (Auto) % (45.0-75.0) Lymphocytes (%) (Auto) % (20.0-45.0) Monocytes (%) (Auto) % (1.0-10.0) Eosinophils (%) (Auto) % (0.0-3.0) Basophils (%) (Auto) % (0.0-2.0) Differential Total Cells Counted 100 Neutrophils % (Manual) 71 % (45-75) Lymphocytes % (Manual) 14 % (20-45) L Monocytes % (Manual) 12 % (1-10) H Eosinophils % (Manual) 1 % (0-3) Basophils % (Manual) 0 % (0-2) Metamyelocytes % 1 % (0-0) H Myelocytes % 1 % (0-0) H Band Neutrophils 0 % (0-8) Platelet Estimate Decreased L Platelet Morphology Normal Hypochromasia 3+ Anisocytosis 1+ Sodium Level 148 mEQ/L (135-145) H Potassium Level 2.7 mEQ/L (3.4-4.9) *L Chloride Level 112 mEQ/L (98-107) H Carbon Dioxide Level 20 mEQ/L (20-30) Anion Gap 16 (5-15) H Blood Urea Nitrogen 37 mg/dL (7-23) H Creatinine 1.5 mg/dL (0.5-0.9) H Estimat Glomerular Filtration Rate 36.4 mL/min (>60) Glucose Level 175 mg/dL (74-106) H Calcium Level 8.1 mg/dL (8.6-10.2) L Phosphorus Level 3.6 mg/dL (2.5-4.8) Magnesium Level 2.0 mg/dL (1.7-2.5) Total Bilirubin 0.9 mg/dL (0.0-1.2) Aspartate Amino Transf (AST/SGOT) 26 U/L (5-40) Alanine Aminotransferase (ALT/SGPT) 11 U/L (3-33) Alkaline Phosphatase 131 U/L (35-104) H Total Protein 6.7 g/dL (6.6-8.7) Albumin 1.6 g/dL (3.5-5.2) L Globulin 5.1 g/dL Albumin/Globulin Ratio 0.3 (1.0-2.7) L Arterial Blood pH 7.362 (7.350-7.450) Arterial Blood Partial Pressure CO2 36.2 mmHg (35.0-45.0) Arterial Blood Partial Pressure O2 143.8 mmHg (75.0-100.0) H Arterial Blood HCO3 20.1 mmol/L (22.0-26.0) L Arterial Blood Oxygen Saturation 98.0 % (92.0-98.0) Arterial Blood Base Excess -4.8 Harley Test Positive Microbiology Date/Time Source Procedure Growth Status 03/02/17 02:00 Sputum Induced Gram Stain - Final Resulted 03/02/17 02:00 Sputum Induced Sputum Culture Pending Resulted Objective HEAD AND NECK: No JVD. LUNGS: Coarse rhonchi CARDIOVASCULAR: Regular S1 and S2 ABDOMEN: .PEG in place. EXTREMITIES: 1+ pitting edema. ELIUD LALA March 02, 2017 14:21
[2017-03-02] MEDS: Narcotic Shift Volume MISC SCH (19:00)
--- NOTE | 2017-03-02 19:04 | Nephrology Progress Note ---
Assessment/Plan Problem List: (1) SHERIE (acute kidney injury) (2) Liver cirrhosis (3) UTI (urinary tract infection) (4) Encephalopathy, multifactorial, hepatic/septic/renal (5) Altered mental state (6) Psychiatric disorder Plan Comfort care only On Morphine drip Subjective ROS Limited/Unobtainable: Yes Subjective In bed, comfort care, on morphine drip Objective Objective Last 24 Hour Vital Signs Date Time Temp Pulse Resp B/P Pulse Ox O2 Delivery O2 Flow Rate FiO2 03/02/17 18:00 19 03/02/17 18:00 83 18 76/53 92 Nasal Cannula 2.0 03/02/17 17:00 82 18 74/34 93 Nasal Cannula 2.0 03/02/17 16:00 11 03/02/17 16:00 83 11 72/34 93 Nasal Cannula 2.0 03/02/17 16:00 83 03/02/17 15:00 81 8 72/42 93 Nasal Cannula 2.0 03/02/17 14:50 83 10 96 Nasal Cannula 03/02/17 14:42 84 10 95 Nasal Cannula 5.0 40 03/02/17 14:00 78 8 74/40 97 Nasal Cannula 2.0 03/02/17 13:00 82 23 89/39 95 Nasal Cannula 2.0 03/02/17 12:13 97.1 03/02/17 12:00 18 03/02/17 12:00 97.1 80 20 70/31 93 Nasal Cannula 2.0 03/02/17 12:00 80 03/02/17 11:43 19 03/02/17 11:37 95 Nasal Cannula 5.0 03/02/17 11:36 Nasal Cannula 5.0 03/02/17 11:33 Nasal Cannula 5.0 03/02/17 11:30 83 21 74/31 94 Nasal Cannula 2.0 03/02/17 11:27 77 14 100 Mechanical Ventilator 03/02/17 11:20 83 17 40 03/02/17 11:14 82 14 100 Mechanical Ventilator 40 03/02/17 11:00 82 15 75/40 97 Mechanical Ventilator 50 03/02/17 10:30 86 17 106/61 98 Mechanical Ventilator 50 03/02/17 10:00 83 15 96/42 100 Mechanical Ventilator 50 03/02/17 09:30 83 16 97/44 100 Mechanical Ventilator 50 03/02/17 09:29 83 17 40 03/02/17 09:00 83 15 123/47 100 Mechanical Ventilator 50 03/02/17 08:45 82 15 128/50 100 Mechanical Ventilator 50 03/02/17 08:30 82 16 115/43 100 Mechanical Ventilator 50 03/02/17 08:15 83 14 99/43 100 Mechanical Ventilator 50 03/02/17 08:00 50 03/02/17 08:00 87 03/02/17 08:00 98.0 83 17 103/46 100 Mechanical Ventilator 50 03/02/17 07:45 83 14 104/43 100 Mechanical Ventilator 50 03/02/17 07:30 83 16 104/44 100 Mechanical Ventilator 50 03/02/17 07:21 90 18 100 Mechanical Ventilator 03/02/17 07:15 82 14 122/57 100 Mechanical Ventilator 50 03/02/17 07:05 82 14 50 03/02/17 07:00 82 14 100 Mechanical Ventilator 50 03/02/17 07:00 80 17 119/45 100 Mechanical Ventilator 50 03/02/17 06:45 86 17 111/47 100 Mechanical Ventilator 50 03/02/17 06:30 87 17 99/47 100 Mechanical Ventilator 50 03/02/17 06:15 88 17 94/49 100 Mechanical Ventilator 50 03/02/17 06:00 87 17 106/50 100 Mechanical Ventilator 50 03/02/17 05:45 83 17 106/54 100 Mechanical Ventilator 50 03/02/17 05:30 85 18 50 03/02/17 05:30 82 17 99/52 100 Mechanical Ventilator 50 03/02/17 05:15 85 17 90/47 100 Mechanical Ventilator 50 03/02/17 05:00 86 17 94/49 100 Mechanical Ventilator 50 03/02/17 04:45 86 17 104/50 100 Mechanical Ventilator 50 03/02/17 04:30 93 21 114/55 100 Mechanical Ventilator 50 03/02/17 04:15 95 17 104/54 100 Mechanical Ventilator 50 03/02/17 04:00 50 03/02/17 04:00 92 03/02/17 04:00 98.8 94 14 103/59 100 Mechanical Ventilator 50 03/02/17 03:45 86 20 100 Mechanical Ventilator 03/02/17 03:45 91 14 105/49 100 Mechanical Ventilator 50 03/02/17 03:30 92 14 95/46 100 Mechanical Ventilator 50 5/24/17 03:30 84 16 100 Mechanical Ventilator 50 524/17 03:30 84 16 50 5//17 03:15 93 14 88/46 100 Mechanical Ventilator 50 17 03:00 95 14 90/43 100 Mechanical Ventilator 50 524/17 02:45 98 14 106/57 100 Mechanical Ventilator 50 24/17 02:30 105 14 127/55 100 Mechanical Ventilator 50 03/02/17 02:15 100 14 108/54 100 Mechanical Ventilator 50 03/02/17 02:00 104 14 115/58 100 Mechanical Ventilator 50 03/02/17 01:45 104 14 91/51 100 Mechanical Ventilator 50 03/02/17 01:30 105 14 106/54 100 Mechanical Ventilator 50 03/02/17 01:30 104 17 50 03/02/ 01:15 105 14 109/53 100 Mechanical Ventilator 50 03/02/ 01:00 104 14 106/54 100 Mechanical Ventilator 50 17 00:45 104 14 103/53 100 Mechanical Ventilator 50 03/02/17 00:30 106 14 107/58 100 Mechanical Ventilator 50 03/02/17 00:15 115 14 115/58 100 Mechanical Ventilator 50 03/02/ 00:00 108 24/17 00:00 98.5 110 15 117/63 100 Mechanical Ventilator 50 03/02/17 00:00 50 03/01/ 23:55 111/51 03/01/17 23:45 114 15 100 Mechanical Ventilator 03/01/ 23:30 108 32 50 03/01/17 23:30 111 15 100 Mechanical Ventilator 50 03/01/17 22:45 115 14 111/51 100 Mechanical Ventilator 50 03/01/17 22:30 116 14 116/60 100 Mechanical Ventilator 50 03/01/17 22:15 115 14 110/56 100 Mechanical Ventilator 50 03/01/17 22:00 111 14 99/62 100 Mechanical Ventilator 50 5/17 21:45 93 14 102/42 100 Mechanical Ventilator 50 5/17 21:45 100 14 98/51 100 Mechanical Ventilator 50 523/17 21:30 81 14 92/42 100 Mechanical Ventilator 50 5/23/17 21:30 81 14 101/35 100 Mechanical Ventilator 50 5/17 21:22 94 22 50 5/23/17 21:15 93 14 98/54 100 Mechanical Ventilator 50 03/01/17 20:45 91 14 126/50 100 Mechanical Ventilator 50 03/01/17 20:30 87 14 131/53 100 Mechanical Ventilator 50 03/01/17 20:15 89 19 132/59 100 Mechanical Ventilator 50 03/01/17 20:00 50 03/01/17 20:00 90 03/01/17 20:00 98.1 91 14 118/51 100 Mechanical Ventilator 50 03/01/17 19:45 87 14 134/50 100 Mechanical Ventilator 50 03/01/17 19:30 82 17 50 03/01/17 19:30 85 19 146/58 100 Mechanical Ventilator 50 03/01/17 19:29 88 16 100 Mechanical Ventilator 03/01/17 19:29 83 19 100 Mechanical Ventilator 50 03/01/17 19:15 83 14 137/52 100 Mechanical Ventilator 50 Intake and Output 03/01/17 03/02/17 19:00 07:00 Intake Total 840.145 ml 798.620 ml Output Total 1235 ml 950 ml Balance -394.855 ml -151.380 ml IV Total 480.145 ml 388.620 ml Tube Feeding 360 ml 360 ml Other 50 ml Output Urine Total 1235 ml 950 ml # Bowel Movements 4 Laboratory Tests 03/02/17 03:35: White Blood Count 8.1#, Red Blood Count 2.46L, Hemoglobin 8.0L, Hematocrit 23.9L , Mean Corpuscular Volume 97, Mean Corpuscular Hemoglobin 32.6H, Mean Corpuscular Hemoglobin Concent 33.6, Red Cell Distribution Width 16.5H, Platelet Count 41#L, Mean Platelet Volume 7.3, Neutrophils (%) (Auto) , Lymphocytes (%) (Auto) , Monocytes (%) (Auto) , Eosinophils (%) (Auto) , Basophils (%) (Auto) , Differential Total Cells Counted 100, Neutrophils % ( Manual) 71, Lymphocytes % (Manual) 14L, Monocytes % (Manual) 12H, Eosinophils % (Manual) 1, Basophils % (Manual) 0, Metamyelocytes % 1H, Myelocytes % 1H, Band Neutrophils 0, Platelet Estimate DecreasedL, Platelet Morphology Normal, Hypochromasia 3+, Anisocytosis 1+, Sodium Level 148H, Potassium Level 2.7*L, Chloride Level 112H, Carbon Dioxide Level 20, Anion Gap 16H, Blood Urea Nitrogen 37H, Creatinine 1.5H, Estimat Glomerular Filtration Rate 36.4, Glucose Level 175H, Calcium Level 8.1L, Phosphorus Level 3.6, Magnesium Level 2.0, Total Bilirubin 0.9, Aspartate Amino Transf (AST/SGOT) 26, Alanine Aminotransferase (ALT/SGPT) 11, Alkaline Phosphatase 131H, Total Protein 6.7, Albumin 1.6L, Globulin 5.1, Albumin/Globulin Ratio 0.3L 03/02/17 07:50: Arterial Blood pH 7.362, Arterial Blood Partial Pressure CO2 36.2, Arterial Blood Partial Pressure O2 143.8H, Arterial Blood HCO3 20.1L, Arterial Blood Oxygen Saturation 98.0, Arterial Blood Base Excess -4.8, Harley Test Positive Height (Feet): 5 Height (Inches): 5.00 Weight (Pounds): 140 General Appearance: no apparent distress Cardiovascular: normal rate Respiratory/Chest: decreased breath sounds, crackles/rales Neurologic: unresponsive Madeline Fischer N.P. March 02, 2017 19:04
[2017-03-03] VITALS (10 sets, daily range): BP systolic 65–100; BP diastolic 36–54
[2017-03-03] MEDS: PCA Morphine 1mg/ml 30 ML IV PRN ×4 (00:01→19:18)
[2017-03-03] MEDS: Narcotic Shift Volume MISC SCH ×5 (04:28→23:07)
[2017-03-03] MEDS ORDERED: Morphine Sulfate 4mg/ml Inj SUBQ PRN ×2 (05:00→20:00)
[2017-03-03] MEDS ORDERED: Haloperidol 5mg/ml Inj IM PRN (05:00)
[2017-03-03] MEDS ORDERED: Glycopyrrolate 0.2mg/ml 1ml Vial IV PRN (05:00)
[2017-03-03] MEDS ORDERED: Prochlorperazine 10mg tab ORAL PRN (05:00)
[2017-03-03] MEDS ORDERED: Rate Change Narcotic Drip MISC PRN ×2 (09:00→20:00)
[2017-03-03] MEDS ORDERED: Artificial Tears 1.4% Op Soln BOTH EYES PRN ×2 (12:00→20:00)
--- NOTE | 2017-03-03 13:05 | General Progress Note ---
Assessment/Plan Problem List: (1) Liver cirrhosis ICD Codes: K74.60 - Unspecified cirrhosis of liver SNOMED: 22156564 Qualifiers: Qualified Codes: K74.60 - Unspecified cirrhosis of liver (2) Encephalopathy ICD Codes: G93.40 - Encephalopathy, unspecified SNOMED: 44561678, 708442104 (3) UTI (urinary tract infection) ICD Codes: N39.0 - Urinary tract infection, site not specified SNOMED: 18110289 Qualifiers: Qualified Codes: N30.01 - Acute cystitis with hematuria (4) Encephalopathy, multifactorial, hepatic/septic/renal (5) Altered mental state ICD Codes: R41.82 - Altered mental status, unspecified SNOMED: 065359080, 305738901 Qualifiers: Qualified Codes: R41.82 - Altered mental status, unspecified (6) Severe malnutrition ICD Codes: E43 - Unspecified severe protein-calorie malnutrition SNOMED: 82859635 (7) Psychiatric disorder ICD Codes: F99 - Mental disorder, not otherwise specified SNOMED: 95527805, 232760295 Status: unchanged Assessment/Plan s/p terminal extubation, comfort measures Subjective Constitutional: Reports: weakness Allergies: Coded Allergies: PENICILLINS (Verified Allergy, Unknown, 02/10/17) All Systems: reviewed and negative except above Subjective o2 nc lethargic Objective Last 24 Hour Vital Signs Date Time Temp Pulse Resp B/P Pulse Ox O2 Delivery O2 Flow Rate FiO2 03/03/17 12:10 10 03/03/17 12:04 97.8 77 8 74/39 92 Nasal Cannula 2.0 03/03/17 08:17 98.2 79 10 91/47 92 Nasal Cannula 2.0 03/03/17 08:00 10 03/03/17 06:47 97.0 03/03/17 06:44 95 Nasal Cannula 5.0 03/03/17 06:44 Nasal Cannula 5.0 03/03/17 05:08 13 03/03/17 04:00 14 03/03/17 04:00 97.0 81 12 98/54 91 Nasal Cannula 2.0 03/03/17 03:00 82 13 99/39 94 Nasal Cannula 2.0 03/03/17 02:00 82 11 96/38 91 Nasal Cannula 2.0 03/03/17 01:00 84 14 100/37 91 Nasal Cannula 2.0 03/03/17 00:05 17 03/03/17 00:00 84 03/03/17 00:00 97.2 83 12 98/48 91 Nasal Cannula 2.0 03/02/17 23:00 12 03/02/17 23:00 84 12 93/37 90 Nasal Cannula 2.0 03/02/17 22:00 84 12 91/35 92 Nasal Cannula 2.0 03/02/17 21:00 83 13 89/36 92 Nasal Cannula 2.0 03/02/17 20:00 97.0 80 13 85/36 93 Nasal Cannula 2.0 03/02/17 20:00 85 03/02/17 19:19 95 Nasal Cannula 5.0 03/02/17 19:19 Nasal Cannula 5.0 03/02/17 19:12 97.1 03/02/17 19:00 16 03/02/17 19:00 85 13 82/39 92 Nasal Cannula 2.0 03/02/17 18:00 19 03/02/17 18:00 83 18 76/53 92 Nasal Cannula 2.0 03/02/17 17:00 82 18 74/34 93 Nasal Cannula 2.0 03/02/17 16:00 11 03/02/17 16:00 83 11 72/34 93 Nasal Cannula 2.0 03/02/17 16:00 83 03/02/17 15:00 81 8 72/42 93 Nasal Cannula 2.0 03/02/17 14:50 83 10 96 Nasal Cannula 03/02/17 14:42 84 10 95 Nasal Cannula 5.0 40 03/02/17 14:00 78 8 74/40 97 Nasal Cannula 2.0 Intake and Output 03/02/17 03/03/17 19:00 07:00 Intake Total 424.6 ml 45 ml Output Total 265 ml 40 ml Balance 159.6 ml 5 ml IV Total 334.6 ml 45 ml Tube Feeding 30 ml Other 60 ml Output Urine Total 265 ml 40 ml # Bowel Movements 2 Height (Feet): 5 Height (Inches): 5.00 Weight (Pounds): 141 General Appearance: lethargic EENT: normal ENT inspection Neck: normal alignment Cardiovascular: normal peripheral pulses, normal rate, regular rhythm Respiratory/Chest: chest wall non-tender, lungs clear, decreased breath sounds Abdomen: normal bowel sounds, non tender, soft Extremities: normal inspection Edema: no edema noted Arm (L), no edema noted Arm (R), no edema noted Leg (L), no edema noted Leg (R), no edema noted Pedal (L), no edema noted Pedal (R), no edema noted Generalized Neurologic: motor weakness Skin: normal pigmentation, warm/dry TERE GILES March 03, 2017 13:05
--- NOTE | 2017-03-03 13:22 | Wound Care Consultation ---
Wound Assessment Wound Assessment #1: Wound Present on Admission: No New Wound: No Status Change of Wound: No Wound Location Body Site: perineal area Wound Type: chemical burn Teto Test: Does not Teto Percent of Wound [place]/Red: 100 Wound Drainage Amount: None Wound Drainage Odor: None/Absent Tissue Surrounding Wound: Erythemic Wound General Appearance: Reddened Wound Assessment #2: Wound Number: #2 Wound Present on Admission: No New Wound: Yes Status Change of Wound: No Wound Location Body Site Modif: right Wound Location Body Site: buttocks Wound Type: pressure ulcer Teto Test: Does not Teto Pressure Ulcer Stage: II Wound Thickness: Partial Thickness Wound Length: 1.0 Wound Width: 2.0 Wound Depth: 0.1 Percent of Wound [place]/Red: 100 Wound Drainage Description: Serosanguineous Wound Drainage Amount: Scant Wound Drainage Odor: None/Absent Tissue Surrounding Wound: Erythemic Wound General Appearance: Reddened Wound Comment #1 Right buttock stage II pressure ulcer #2 chemical burn on perineal area Recommendation -Right buttock stage II pressure ulcer Cleanse with saline, pat dry, apply Triad cream, cover with Bordered gauze daily and PRN soiled/dislodged -Local wound care per protocol for chemical burn on perineal area with skin barrier cream to protect the skin from breaking down -Turn and reposition -Keep clean and dry -Offload both heels -Heel protector on both heels -Optimize nutrition -Assess and f/u accordingly for any changes MATEO MATTHEWS RN March 03, 2017 13:22
--- NOTE | 2017-03-03 16:36 | Diagnostic Imaging Report ---
Indication: Dyspnea Comparison: 02/28/17 A single view chest radiograph was obtained. Findings: There is a consolidation versus atelectasis at the left lung base. Heart size is normal. Tubes and line stable. Mild interstitial edema be present. Bones are osteopenic. Impression: No significant change
--- NOTE | 2017-03-03 18:28 | Pulmonology Progress Note ---
Assessment/Plan Problems: (1) Encephalopathy (2) ATN (acute tubular necrosis) (3) Shock (4) Liver cirrhosis (5) UTI (urinary tract infection) (6) Encephalopathy, multifactorial, hepatic/septic/renal (7) Psychiatric disorder (8) Severe malnutrition Assessment/Plan comfortable on morphine drip no labs, no feeding Subjective ROS Limited/Unobtainable: Yes Interval Events: deep coma, comfortable Allergies: Coded Allergies: PENICILLINS (Verified Allergy, Unknown, 02/10/17) Objective Last 24 Hour Vital Signs Date Time Temp Pulse Resp B/P Pulse Ox O2 Delivery O2 Flow Rate FiO2 03/03/17 16:27 98.2 77 6 69/36 94 Nasal Cannula 2.0 03/03/17 12:10 10 03/03/17 12:04 97.8 77 8 74/39 92 Nasal Cannula 2.0 03/03/17 08:17 98.2 79 10 91/47 92 Nasal Cannula 2.0 03/03/17 08:00 10 03/03/17 06:47 97.0 03/03/17 06:44 95 Nasal Cannula 5.0 03/03/17 06:44 Nasal Cannula 5.0 03/03/17 05:08 13 03/03/17 04:00 14 03/03/17 04:00 97.0 81 12 98/54 91 Nasal Cannula 2.0 03/03/17 03:00 82 13 99/39 94 Nasal Cannula 2.0 03/03/17 02:00 82 11 96/38 91 Nasal Cannula 2.0 03/03/17 01:00 84 14 100/37 91 Nasal Cannula 2.0 03/03/17 00:05 17 03/03/17 00:00 84 03/03/17 00:00 97.2 83 12 98/48 91 Nasal Cannula 2.0 03/02/17 23:00 12 03/02/17 23:00 84 12 93/37 90 Nasal Cannula 2.0 03/02/17 22:00 84 12 91/35 92 Nasal Cannula 2.0 03/02/17 21:00 83 13 89/36 92 Nasal Cannula 2.0 03/02/17 20:00 97.0 80 13 85/36 93 Nasal Cannula 2.0 03/02/17 20:00 85 03/02/17 19:19 95 Nasal Cannula 5.0 03/02/17 19:19 Nasal Cannula 5.0 03/02/17 19:12 97.1 03/02/17 19:00 16 03/02/17 19:00 85 13 82/39 92 Nasal Cannula 2.0 Intake and Output 03/02/17 03/03/17 19:00 07:00 Intake Total 424.6 ml 45 ml Output Total 265 ml 40 ml Balance 159.6 ml 5 ml IV Total 334.6 ml 45 ml Tube Feeding 30 ml Other 60 ml Output Urine Total 265 ml 40 ml # Bowel Movements 2 Objective General Appearance: cachetic HEENT: normocephalic, atraumatic Respiratory/Chest: chest wall non-tender, lungs clear Cardiovascular: normal peripheral pulses, normal rate Abdomen: normal bowel sounds, soft, non tender, PEG Genitourinary: normal external genitalia Extremities: no cyanosis Microbiology Date/Time Source Procedure Growth Status 03/01/17 19:30 Blood Blood Culture - Preliminary NO GROWTH AFTER 24 HOURS Resulted 03/01/17 19:25 Blood Blood Culture - Preliminary NO GROWTH AFTER 24 HOURS Resulted 03/02/17 02:00 Sputum Induced Gram Stain - Final Resulted 03/02/17 02:00 Sputum Induced Sputum Culture Pending Resulted Current Medications Medications (Trade) Dose Ordered Sig/Gill Route PRN Reason Start Time Stop Time Status Last Admin Dose Admin Artificial Tears (Akwa-Tears) 1 drop QIDPRN PRN BOTH EYES Dry Eyes 03/03/17 12:00 04/02/17 11:59 Glycopyrrolate (Robinul) 0.1 mg Q6H PRN IV excessive secretions 03/03/17 05:00 04/02/17 04:59 Haloperidol Lactate (Haldol) 1 mg Q30M PRN IM Agitation 03/03/17 05:00 04/02/17 04:59 Miscellaneous Medication (Narcotic Drip Rate Change) 1 ea DAILY PRN MISC To Patient Comfort 03/03/17 09:00 03/06/17 08:59 Miscellaneous Medication (Narcotic Shift Volume) 1 ea Q8HR@,, MISC 03/03/17 07:00 03/06/17 06:59 03/03/17 07:00 Morphine Sulfate (Morphine Sulfate) 4 mg Q3H PRN SUBQ Severe Pain/Dyspnea (RR>20) 03/03/17 05:00 03/10/17 04:59 Morphine Sulfate (TRAINING MGR Morphine) 30 ml @ 5 mls/hr TRAINING MGR Protocol PRN IV Comfort Measures 03/03/17 04:45 04/02/17 04:44 03/03/17 12:46 MANFRED YING March 03, 2017 18:28
[2017-03-04 00:08] VITALS: BP 68/37
[2017-03-04] MEDS: PCA Morphine 1mg/ml 30 ML IV PRN ×4 (01:29→20:43)
[2017-03-04 04:00] VITALS: BP 67/35
[2017-03-04] MEDS: Narcotic Shift Volume MISC SCH ×3 (07:00→23:00)
[2017-03-04 08:00] VITALS: BP 60/32
[2017-03-04 12:00] VITALS: BP 64/31
--- NOTE | 2017-03-04 13:55 | General Progress Note ---
Assessment/Plan Problem List: (1) Liver cirrhosis ICD Codes: K74.60 - Unspecified cirrhosis of liver SNOMED: 33467773 Qualifiers: Qualified Codes: K74.60 - Unspecified cirrhosis of liver (2) Encephalopathy ICD Codes: G93.40 - Encephalopathy, unspecified SNOMED: 14664894, 948212999 (3) UTI (urinary tract infection) ICD Codes: N39.0 - Urinary tract infection, site not specified SNOMED: 60073949 Qualifiers: Qualified Codes: N30.01 - Acute cystitis with hematuria (4) Encephalopathy, multifactorial, hepatic/septic/renal (5) Altered mental state ICD Codes: R41.82 - Altered mental status, unspecified SNOMED: 493852887, 442475124 Qualifiers: Qualified Codes: R41.82 - Altered mental status, unspecified (6) Severe malnutrition ICD Codes: E43 - Unspecified severe protein-calorie malnutrition SNOMED: 90734913 (7) Psychiatric disorder ICD Codes: F99 - Mental disorder, not otherwise specified SNOMED: 92640258, 398502290 Status: unchanged Assessment/Plan s/p terminal extubation, comfort measures Subjective Constitutional: Reports: weakness Allergies: Coded Allergies: PENICILLINS (Verified Allergy, Unknown, 02/10/17) All Systems: reviewed and negative except above Subjective o2 nc lethargic Objective Last 24 Hour Vital Signs Date Time Temp Pulse Resp B/P Pulse Ox O2 Delivery O2 Flow Rate FiO2 03/04/17 12:26 8 03/04/17 12:00 96.1 75 12 64/31 94 Nasal Cannula 2.0 03/04/17 08:07 8 03/04/17 08:00 97.4 75 12 60/32 97 Nasal Cannula 3.0 03/04/17 04:00 97.4 72 4 67/35 93 Room Air 03/04/17 01:59 97.6 03/04/17 00:08 97.6 78 4 68/37 94 Nasal Cannula 2.0 03/03/17 20:17 97.9 77 5 65/37 94 Nasal Cannula 2.0 03/03/17 20:00 10 03/03/17 19:31 Nasal Cannula 3.0 32 03/03/17 19:31 96 Nasal Cannula 3.0 32 03/03/17 16:27 98.2 77 6 69/36 94 Nasal Cannula 2.0 03/03/17 16:00 10 Intake and Output 03/03/17 03/04/17 19:00 07:00 Intake Total 55 ml 10 ml Output Total 125 ml Balance 55 ml -115 ml IV Total 55 ml 10 ml Output Urine Total 125 ml # Voids 1 Height (Feet): 5 Height (Inches): 5.00 Weight (Pounds): 140 General Appearance: lethargic EENT: normal ENT inspection Neck: normal alignment Cardiovascular: normal peripheral pulses, normal rate, regular rhythm Respiratory/Chest: chest wall non-tender, lungs clear, decreased breath sounds Abdomen: normal bowel sounds, non tender Extremities: normal inspection Edema: no edema noted Arm (L), no edema noted Arm (R), no edema noted Leg (L), no edema noted Leg (R), no edema noted Pedal (L), no edema noted Pedal (R), no edema noted Generalized Neurologic: motor weakness Skin: normal pigmentation, warm/dry TERE GILES March 04, 2017 13:55
--- NOTE | 2017-03-04 14:25 | Nephrology Progress Note ---
Assessment/Plan Problem List: (1) SHERIE (acute kidney injury) (2) Liver cirrhosis (3) UTI (urinary tract infection) (4) Encephalopathy, multifactorial, hepatic/septic/renal (5) Altered mental state (6) Psychiatric disorder Plan Comfort care only On Morphine drip Subjective ROS Limited/Unobtainable: Yes Subjective In bed, comfort care, on morphine drip Objective Objective Last 24 Hour Vital Signs Date Time Temp Pulse Resp B/P Pulse Ox O2 Delivery O2 Flow Rate FiO2 03/04/17 12:26 8 03/04/17 12:00 96.1 75 12 64/31 94 Nasal Cannula 2.0 03/04/17 08:07 8 03/04/17 08:00 97.4 75 12 60/32 97 Nasal Cannula 3.0 03/04/17 04:00 97.4 72 4 67/35 93 Room Air 03/04/17 01:59 97.6 03/04/17 00:08 97.6 78 4 68/37 94 Nasal Cannula 2.0 03/03/17 20:17 97.9 77 5 65/37 94 Nasal Cannula 2.0 03/03/17 20:00 10 03/03/17 19:31 Nasal Cannula 3.0 32 03/03/17 19:31 96 Nasal Cannula 3.0 32 03/03/17 16:27 98.2 77 6 69/36 94 Nasal Cannula 2.0 03/03/17 16:00 10 Intake and Output 03/03/17 03/04/17 19:00 07:00 Intake Total 55 ml 10 ml Output Total 125 ml Balance 55 ml -115 ml IV Total 55 ml 10 ml Output Urine Total 125 ml # Voids 1 Height (Feet): 5 Height (Inches): 5.00 Weight (Pounds): 140 General Appearance: no apparent distress Neck: normal inspection Cardiovascular: normal rate Respiratory/Chest: decreased breath sounds Abdomen: other - peg Neurologic: unresponsive Madeline Fischer N.P. March 04, 2017 14:25
[2017-03-04 16:00] VITALS: BP 52/29
[2017-03-04] MEDS ORDERED: NS 275ml ONE (17:47)
--- NOTE | 2017-03-04 18:12 | Pulmonology Progress Note ---
Assessment/Plan Problems: (1) Encephalopathy (2) ATN (acute tubular necrosis) (3) Shock (4) Liver cirrhosis (5) UTI (urinary tract infection) (6) Encephalopathy, multifactorial, hepatic/septic/renal (7) Psychiatric disorder (8) Severe malnutrition Assessment/Plan comfortable on morphine drip no labs, no feeding bp trending down with SBP of 50 Subjective ROS Limited/Unobtainable: No Interval Events: comfortable, deep coma Allergies: Coded Allergies: PENICILLINS (Verified Allergy, Unknown, 02/10/17) Objective Last 24 Hour Vital Signs Date Time Temp Pulse Resp B/P Pulse Ox O2 Delivery O2 Flow Rate FiO2 03/04/17 16:00 95.5 79 20 52/29 98 Room Air 03/04/17 12:26 8 03/04/17 12:00 96.1 75 12 64/31 94 Nasal Cannula 2.0 03/04/17 08:07 8 03/04/17 08:00 97.4 75 12 60/32 97 Nasal Cannula 3.0 03/04/17 04:00 97.4 72 4 67/35 93 Room Air 03/04/17 01:59 97.6 03/04/17 00:08 97.6 78 4 68/37 94 Nasal Cannula 2.0 03/03/17 20:17 97.9 77 5 65/37 94 Nasal Cannula 2.0 03/03/17 20:00 10 03/03/17 19:31 Nasal Cannula 3.0 32 03/03/17 19:31 96 Nasal Cannula 3.0 32 Intake and Output 03/03/17 03/04/17 19:00 07:00 Intake Total 55 ml 10 ml Output Total 125 ml Balance 55 ml -115 ml IV Total 55 ml 10 ml Output Urine Total 125 ml # Voids 1 Objective General Appearance: cachetic HEENT: normocephalic, atraumatic Respiratory/Chest: chest wall non-tender, lungs clear Cardiovascular: normal peripheral pulses, normal rate Abdomen: normal bowel sounds, soft, non tender, PEG Genitourinary: normal external genitalia Extremities: no cyanosis Microbiology Date/Time Source Procedure Growth Status 03/01/17 19:30 Blood Blood Culture - Preliminary NO GROWTH AFTER 48 HOURS Resulted 03/01/17 19:25 Blood Blood Culture - Preliminary NO GROWTH AFTER 48 HOURS Resulted 03/02/17 02:00 Sputum Induced Gram Stain - Final Complete 03/02/17 02:00 Sputum Induced Sputum Culture - Final NORMAL UPPER RESPIRATORY JILLIAN PRESENT Complete Current Medications Medications (Trade) Dose Ordered Sig/Gill Route PRN Reason Start Time Stop Time Status Last Admin Dose Admin Artificial Tears (Akwa-Tears) 1 drop QIDPRN PRN BOTH EYES Dry Eyes 03/03/17 20:00 04/02/17 19:59 Miscellaneous Medication (Narcotic Drip Rate Change) 1 ea DAILY PRN MISC To Patient Comfort 03/03/17 20:00 04/02/17 19:59 Miscellaneous Medication (Narcotic Shift Volume) 1 ea Q8HR@07,15,23 MISC 03/03/17 23:00 03/06/17 22:59 03/04/17 15:08 Morphine Sulfate (Morphine Sulfate) 4 mg Q3H PRN SUBQ Severe Pain/Dyspnea (RR>20) 03/03/17 20:00 03/10/17 19:59 Morphine Sulfate (CAMPUS RECRUITER Morphine) 30 ml @ 5 mls/hr [facility] [employer] Protocol PRN IV Comfort Measures 03/03/17 20:00 04/02/17 19:59 03/04/17 14:29 MANFRED YING March 04, 2017 18:12
--- NOTE | 2017-03-04 19:40 | Nephrology Progress Note ---
Assessment/Plan Problem List: (1) SHERIE (acute kidney injury) (2) Hypotension (3) Hypernatremia Assessment: improving. (4) Shock (5) Psychiatric disorder (6) Encephalopathy, multifactorial, hepatic/septic/renal (7) UTI (urinary tract infection) Plan On comfort measures only Continue morphine drip Subjective ROS Limited/Unobtainable: Yes Subjective Late entry for 03/03/17 Objective Objective Last 24 Hour Vital Signs Date Time Temp Pulse Resp B/P Pulse Ox O2 Delivery O2 Flow Rate FiO2 03/04/17 16:00 95.5 79 20 52/29 98 Room Air 03/04/17 12:26 8 03/04/17 12:00 96.1 75 12 64/31 94 Nasal Cannula 2.0 03/04/17 08:07 8 03/04/17 08:00 97.4 75 12 60/32 97 Nasal Cannula 3.0 03/04/17 04:00 97.4 72 4 67/35 93 Room Air 03/04/17 01:59 97.6 03/04/17 00:08 97.6 78 4 68/37 94 Nasal Cannula 2.0 03/03/17 20:17 97.9 77 5 65/37 94 Nasal Cannula 2.0 03/03/17 20:00 10 Intake and Output 03/03/17 03/04/17 19:00 07:00 Intake Total 55 ml 10 ml Output Total 125 ml Balance 55 ml -115 ml IV Total 55 ml 10 ml Output Urine Total 125 ml # Voids 1 Height (Feet): 5 Height (Inches): 5.00 Weight (Pounds): 140 General Appearance: no apparent distress Neck: normal alignment Cardiovascular: normal rate Respiratory/Chest: decreased breath sounds Abdomen: other - peg Neurologic: unresponsive PATRICK ENRIQUEZ March 04, 2017 19:40
[2017-03-04 20:00] VITALS: BP 64/38
[2017-03-05] VITALS: BP 65/40
[2017-03-05] MEDS: PCA Morphine 1mg/ml 30 ML IV PRN ×4 (03:00→21:50)
[2017-03-05 04:00] VITALS: BP 63/35
[2017-03-05] MEDS: Narcotic Shift Volume MISC SCH ×3 (07:00→23:17)
--- NOTE | 2017-03-05 07:41 | General Progress Note ---
Assessment/Plan Problem List: (1) Liver cirrhosis ICD Codes: K74.60 - Unspecified cirrhosis of liver SNOMED: 23222309 Qualifiers: Qualified Codes: K74.60 - Unspecified cirrhosis of liver (2) Encephalopathy ICD Codes: G93.40 - Encephalopathy, unspecified SNOMED: 18822589, 239272300 (3) UTI (urinary tract infection) ICD Codes: N39.0 - Urinary tract infection, site not specified SNOMED: 96481754 Qualifiers: Qualified Codes: N30.01 - Acute cystitis with hematuria (4) Encephalopathy, multifactorial, hepatic/septic/renal (5) Altered mental state ICD Codes: R41.82 - Altered mental status, unspecified SNOMED: 140503748, 985849528 Qualifiers: Qualified Codes: R41.82 - Altered mental status, unspecified (6) Severe malnutrition ICD Codes: E43 - Unspecified severe protein-calorie malnutrition SNOMED: 70004638 (7) Psychiatric disorder ICD Codes: F99 - Mental disorder, not otherwise specified SNOMED: 99635033, 455176201 Status: unchanged Assessment/Plan s/p terminal extubation, comfort measures hospice eval Subjective Constitutional: Reports: weakness Allergies: Coded Allergies: PENICILLINS (Verified Allergy, Unknown, 02/10/17) All Systems: reviewed and negative except above Subjective o2 nc lethargic Objective Last 24 Hour Vital Signs Date Time Temp Pulse Resp B/P Pulse Ox O2 Delivery O2 Flow Rate FiO2 03/05/17 04:00 95.5 93 9 63/35 Nasal Cannula 2.0 03/05/17 03:30 95.2 03/05/17 03:00 8 03/05/17 02:55 8 03/05/17 00:00 95.2 60 9 65/40 89 Nasal Cannula 2.0 03/04/17 20:00 95.5 61 10 64/38 89 Nasal Cannula 2.0 03/04/17 19:08 8 03/04/17 16:00 95.5 79 20 52/29 98 Room Air 03/04/17 12:26 8 03/04/17 12:00 96.1 75 12 64/31 94 Nasal Cannula 2.0 03/04/17 08:07 8 03/04/17 08:00 97.4 75 12 60/32 97 Nasal Cannula 3.0 Intake and Output 03/04/17 03/05/17 19:00 07:00 Intake Total 55 ml Output Total 10 ml Balance 45 ml IV Total 55 ml Output Urine Total 10 ml Height (Feet): 5 Height (Inches): 5.00 Weight (Pounds): 140 General Appearance: lethargic EENT: normal ENT inspection Neck: normal alignment Cardiovascular: normal peripheral pulses, normal rate, regular rhythm Respiratory/Chest: chest wall non-tender, lungs clear, normal breath sounds Abdomen: normal bowel sounds, non tender, soft Extremities: normal inspection Edema: no edema noted Arm (L), no edema noted Arm (R), no edema noted Leg (L), no edema noted Leg (R), no edema noted Pedal (L), no edema noted Pedal (R), no edema noted Generalized Neurologic: motor weakness Skin: normal pigmentation, warm/dry TERE GILES March 05, 2017 07:41
[2017-03-05 08:00] VITALS: BP 55/26
[2017-03-05 12:36] VITALS: BP 50/24
--- NOTE | 2017-03-05 15:56 | Nephrology Progress Note ---
Assessment/Plan Problem List: (1) SHERIE (acute kidney injury) (2) Hypotension (3) Hypernatremia Assessment: improving. (4) Shock (5) Psychiatric disorder (6) Encephalopathy, multifactorial, hepatic/septic/renal (7) UTI (urinary tract infection) Plan On comfort measures only Continue morphine drip Subjective ROS Limited/Unobtainable: Yes Subjective comfort measures Objective Objective Last 24 Hour Vital Signs Date Time Temp Pulse Resp B/P Pulse Ox O2 Delivery O2 Flow Rate FiO2 03/05/17 12:36 96.1 74 17 50/24 85 Nasal Cannula 03/05/17 12:00 7 03/05/17 09:40 96.1 03/05/17 08:00 96.1 81 18 55/ 90 Nasal Cannula 03/05/17 04:00 95.5 93 9 63/35 Nasal Cannula 2.0 03/05/17 03:00 8 03/05/17 02:55 8 03/05/17 00:00 95.2 60 9 65/40 89 Nasal Cannula 2.0 03/04/17 20:00 95.5 61 10 64/38 89 Nasal Cannula 2.0 03/04/17 19:08 8 03/04/17 16:00 95.5 79 20 52/29 98 Room Air Intake and Output 03/04/17 03/05/17 19:00 07:00 Intake Total 55 ml Output Total 10 ml Balance 45 ml IV Total 55 ml Output Urine Total 10 ml Height (Feet): 5 Height (Inches): 5.00 Weight (Pounds): 140 General Appearance: no apparent distress Respiratory/Chest: decreased breath sounds, crackles/rales Abdomen: soft, other - peg Genitourinary/Rectal: other - laguerre Neurologic: unresponsive PATRICK ENRIQUEZ March 05, 2017 15:55
[2017-03-05 16:02] VITALS: BP 41/21
--- NOTE | 2017-03-05 18:12 | Pulmonology Progress Note ---
Assessment/Plan Problems: (1) Encephalopathy (2) ATN (acute tubular necrosis) (3) Shock (4) Liver cirrhosis (5) UTI (urinary tract infection) (6) Encephalopathy, multifactorial, hepatic/septic/renal (7) Psychiatric disorder (8) Severe malnutrition Assessment/Plan comfortable on morphine drip no labs, no feeding bp trending down with SBP of 40 Subjective ROS Limited/Unobtainable: No Allergies: Coded Allergies: PENICILLINS (Verified Allergy, Unknown, 02/10/17) Objective Last 24 Hour Vital Signs Date Time Temp Pulse Resp B/P Pulse Ox O2 Delivery O2 Flow Rate FiO2 03/05/17 17:13 Nasal Cannula 3.0 32 03/05/17 17:13 92 Nasal Cannula 3.0 32 03/05/17 16:02 96.1 68 15 41/21 89 Nasal Cannula 03/05/17 15:54 96.1 03/05/17 12:36 96.1 74 17 50/24 85 Nasal Cannula 03/05/17 12:00 7 03/05/17 08:00 96.1 81 18 55/26 90 Nasal Cannula 03/05/17 04:00 95.5 93 9 63/35 Nasal Cannula 2.0 03/05/17 03:00 8 03/05/17 02:55 8 03/05/17 00:00 95.2 60 9 65/40 89 Nasal Cannula 2.0 03/04/17 20:00 95.5 61 10 64/38 89 Nasal Cannula 2.0 03/04/17 19:08 8 Intake and Output 03/04/17 03/05/17 19:00 07:00 Intake Total 55 ml Output Total 10 ml Balance 45 ml IV Total 55 ml Output Urine Total 10 ml Objective General Appearance: cachetic HEENT: normocephalic, atraumatic Respiratory/Chest: chest wall non-tender, lungs clear Cardiovascular: normal peripheral pulses, normal rate Abdomen: normal bowel sounds, soft, non tender, PEG Genitourinary: normal external genitalia Extremities: no cyanosis Current Medications Medications (Trade) Dose Ordered Sig/Gill Route PRN Reason Start Time Stop Time Status Last Admin Dose Admin Artificial Tears (Akwa-Tears) 1 drop QIDPRN PRN BOTH EYES Dry Eyes 03/03/17 20:00 04/02/17 19:59 Miscellaneous Medication (Narcotic Drip Rate Change) 1 ea DAILY PRN MISC To Patient Comfort 03/03/17 20:00 04/02/17 19:59 Miscellaneous Medication (Narcotic Shift Volume) 1 ea Q8HR@07,15,23 MISC 03/03/17 23:00 03/06/17 22:59 03/05/17 15:25 Morphine Sulfate (Morphine Sulfate) 4 mg Q3H PRN SUBQ Severe Pain/Dyspnea (RR>20) 03/03/17 20:00 03/10/17 19:59 Morphine Sulfate (SOCIAL MEDIA SPECIALIST Morphine) 30 ml @ 5 mls/hr SOCIAL MEDIA SPECIALIST Protocol PRN IV Comfort Measures 03/03/17 20:00 04/02/17 19:59 03/05/17 15:24 MANFRED YING March 05, 2017 18:12
[2017-03-05 20:00] VITALS: BP 43/22
[2017-03-06] VITALS: BP 40/22
--- NOTE | 2017-03-09 13:42 | Discharge Summary ---
Discharge Summary Hospital Course Date of Admission February 10, 2017 at 10:52 Date of Discharge March 06, 2017 at 01:00 Admitting Diagnosis encephalopathy HPI Stephanie Isbell is a 51 year old female who was admitted on February 10, 2017 at 10:52 for Encephalopathy Hospital Course summary #[id number] Discharge Discharge Disposition Patient was . Discharge Diagnoses: Beto (Tanyafabián),Earlene ARCHER March 09, 2017 13:42
--- NOTE | 2017-03-10 10:15 | Discharge Summary 2 SIG ---
SUMMARY DATE OF ADMISSION: 02/10/2017 DATE OF EXPIRATION: 03/06/2017 REASON FOR ADMISSION: 51-year-old female with PMH significant for COPD, HTN, liver cirrhosis, anemia, GERD. osteoarthritis, schizoaffective disorder was brought from the assisted facility for an abnormal laboratory values and elevated ammonia level. The patient was unable to provide any information, and no family member was present upon admission. The patient was found to be in altered mental status. Ammonia level-107, was downtrending from 209 from outside facility. Lactulose was provided in the emergency department. Urinalysis with gross evidence of infection. Empiric antibiotics were started. Creatinine - 1.4 and BUN -49. Hemoglobin and hematocrit were stable. No leukocytosis. EKG revealed sinus rhythm with ST depression in II, III, aVF, V5 and V6 lead, with underlying sinus rhythm. No PVC. No ectopy. Chest x-ray revealed no acute cardiopulmonary disease. The patient was admitted for further management. ADMITTING DIAGNOSES: 1. Possible sepsis. 2. Urinary tract infection. 3. Acute toxic metabolic encephalopathy. 4. Liver cirrhosis. 5. Psychiatric disorder. HOSPITAL STAY: The patient was admitted to [facility]. The patient required short-term of pressors. Patient was transferred to ICU for pressors and management of hemodynamic status. Pressors were eventually discontinued. Hypotension was likely multifactorial, due to volume depletion, anemia, and sepsis. The patient had undergone transfusion of one unit of red blood cells after hemoglobin and hematocrit dropped. Blood pressure improved after blood transfusion. Blood pressure remained stable. GI followed. The patient with end stage liver disease as evidenced by persistent coagulopathy, hypoalbuminemia, elevated LFT, thrombocytopenia along with esophageal varices and portal hypertensive gastropathy. visualized during EGD and PEG. The patient had undergone PEG on 02/22/2017 with the findings consistent with esophageal varices and portal hypertensive gastropathy. Subsequently afterwards , the patient was transferred to ICU for respiratory distress and bleeding from mouth and nares. Patient had episode of hematemesis with likely aspiration of some blood. Patient was started on Inderal with holding parameters for blood pressure. Strict aspiration precautions were maintained. G-tube feeding was administered and tolerance was monitored. GI prophylaxis was provided. Hepatitis panel was negative. Rifaximin and lactulose were continued. Ammonia level was closely monitored. Last ammonia was- 58. LFT monitoring was continued. Urine tox screen was negative. Abdominal ultrasound with evidence of cholelithiasis and possible choledocholithiasis. Recommended ERCP, however, per GI, the patient was not stable for procedure at that time. Hemoglobin and hematocrit were closely monitored. The patient required transfusion of blood. Hemoglobin and hematocrit at baseline after transfusion, stool OB was negative. ABG on 02/26/2017 revealed hypoxemia. The patient was placed on the BiPAP and FiO2 was titrated to keep saturation above92%. Pulmonary toilet was provided as needed. Unable to be weaned off BiPAP. Contrarily, the patient required emergent oral intubation on 02/28/2017, and afterwards was started on dopamine drip for hemodynamic support. Venous duplex of bilateral lower extremities was negative. Cause of hypoxemia was likely aspiration pneumonia since the patient likely aspirated some blood with bleeding episodes. Leukocytosis and worsening CXR . Patient was on antibiotics. ID followed. Initial urine culture was positive for Staph aureus. Repeated urine culture revealed Rubina. Blood culture were negative. Sputum culture was negative. Clerical Associate followed as well. Renal ultrasound consistent with medical renal disease. Acute renal failure likely at least partially due to dehydration. Renal parameters and electrolytes were closely monitored. Nephrotoxics were avoided. Not much change. Creatinine down to 1.4 prior to expiration. Neurologist followed the patient. Per Neurology, acute toxic metabolic encephalopathy was multifactorial secondary to sepsis, renal failure, and hepatic failure. CT of the head was not done since the patient was not stable. Seizure precaution were maintained. Depakote level was therapeutic. Orthopedic surgeon had seen the patient since the patient had severe osteoarthritis of the right knee. He reviewed the x-ray of the right knee and stated that the patient will eventually need total knee replacement when medically optimized. At this time, recommended hinge brace and pain management. Pain management was addressed. Psych medications were continued. Psychiatrist had seen the patient. Wound care nurse had seen the patient. Wound care was provided as per wound care nurse recommendation. After the patient was intubated, her condition was not improved. Chest x-ray revealed left lobe atelectasis and possible pneumonia. The patient continued to be on antibiotics. White blood count started to rise on 02/28/2017 to - 12.2 and on 03/01/2017 up to - 17.9. On 03/02/2017, the patient's condition was discussed with the family by critical care doctor, Dr. Mcgovern. Family understood gravity of prognosis and futility of further treatment. Family decided to change the code status to DNR/DNI status. Code status was changed on 03/02/2017 to DNR/DNI. The patient was terminally extubated. Loading dose of morphine was given. The patient was started on HAY BUCKLER morphine drip. The patient was closely monitored. Blood pressure was slowly trended down. Comfort care was provided. All medications were discontinued including pressors. The patient was pronounced at 0045 hours on 03/06/2017. Cause of : Cardiopulmonary arrest. DISCHARGE DIAGNOSES: 1. Acute hypoxemic respiratory failure requiring intubation. 2. Sepsis. 3. Septic shock. 4. Urinary tract infection with Staphylococcus aureus and Rubina. 5. Gastrointestinal hemorrhage, likely due to esophageal varices. 6. Aspiration of blood. 7. Likely aspiration pneumonia. 8. Hypotension. 9. Acute renal failure on chronic kidney disease. 10. Acute toxic metabolic encephalopathy. 11. Cholelithiasis. 12. Possible choledocholithiasis. 13. Anemia, status post blood transfusion. 14. Dysphagia, status post percutaneous endoscopic gastrostomy on 02/22/2017. 15. Liver cirrhosis. 16. End stage liver disease 17. Chronic psychiatric disorder/schizophrenia. 18. Severe right knee osteoarthritis. 19. Severe protein-calorie malnutrition. 20. Right buttock stage II, present on admission. 21. Coagulopathy 22. Portal hypertensive gastropathy Adolfo Busch D.O. I have been assigned to dictate discharge summary on this account and I was not involved in the patient's management. Earlene Pérez (vanchtein) N.PSuraj DR: DESHAWN JOB#: [id number] CC: YULIANA
== END 2017-03-06 01:00 | disposition expired | DRG 871 ==
LOC: ENRESERVTM → ENRESERVDT → EDBD 10:10 → EMR 10:50 → 2E 10:52 → EDBEDREQ 12:52 → 2E 13:37 → 4W 02-12 23:32 → ICU 02-15 19:54 → 2E 02-18 13:29 → 4E 02-21 03:56 → 2W 02-23 15:06 → ICU 02-28 19:51 → 4W 03-03 05:15
PROC: 06HM33Z Insertion of Infusion Device into Right Femoral Vein, Percutaneous Approach (ICD-10-PCS; principal; 2017-02-16)
PROC: 0DH64UZ Insertion of Feeding Device into Stomach, Percutaneous Endoscopic Approach (ICD-10-PCS; 2017-02-22 08:11)
PROC: 02H633Z Insertion of Infusion Device into Right Atrium, Percutaneous Approach (ICD-10-PCS; 2017-02-24)
PROC: B244ZZZ Ultrasonography of Right Heart (ICD-10-PCS; 2017-02-24)
PROC: 5A1945Z Respiratory Ventilation, 24-96 Consecutive Hours (ICD-10-PCS; 2017-02-28)
PROC: 0BH17EZ Insertion of Endotracheal Airway into Trachea, Via Natural or Artificial Opening (ICD-10-PCS; 2017-02-28)
DX: A41.9 Sepsis, unspecified organism (principal); R65.21 Severe sepsis with septic shock; J96.01 Acute respiratory failure with hypoxia; N17.0 Acute kidney failure with tubular necrosis; R40.20 Unspecified coma; J69.0 Pneumonitis due to inhalation of food and vomit; G92 Toxic encephalopathy; L89.312 Pressure ulcer of right buttock, stage 2; E43 Unspecified severe protein-calorie malnutrition; I85.10 Secondary esophageal varices without bleeding; N39.0 Urinary tract infection, site not specified; E87.0 Hyperosmolality and hypernatremia; K92.2 Gastrointestinal hemorrhage, unspecified; D68.9 Coagulation defect, unspecified; K76.6 Portal hypertension; K74.60 Unspecified cirrhosis of liver; M17.11 Unilateral primary osteoarthritis, right knee; Z66 Do not resuscitate; K80.70 Calculus of gallbladder and bile duct without cholecystitis without obstruction; K72.90 Hepatic failure, unspecified without coma; E11.9 Type 2 diabetes mellitus without complications; J44.9 Chronic obstructive pulmonary disease, unspecified; Z85.3 Personal history of malignant neoplasm of breast; F25.0 Schizoaffective disorder, bipolar type; D64.9 Anemia, unspecified; R13.10 Dysphagia, unspecified; D69.6 Thrombocytopenia, unspecified; Z51.5 Encounter for palliative care; I12.9 Hypertensive chronic kidney disease with stage 1 through stage 4 chronic kidney disease, or unspecified chronic kidney disease; N18.9 Chronic kidney disease, unspecified; K31.89 Other diseases of stomach and duodenum
CPT/HCPCS: 29240; 36415; 36569; 36600; 71010; 74000; 76700; 76775; 76937; 80048; 80053; 80061; 80164; 80202; 80300; 81001; 81003; 82140; 82248; 82270; 82533; 82607; 82803; 82962; 83605; 83690; 83735; 84100; 84439; 84443; 84484; 85007; 85025; 85610; 85651; 85730; 86140; 86705; 86709; 86803; 86850; 86900; 86901; 86920; 87040; 87070; 87081; 87086; 87181; 87205; 87340; 93005; 93306; 93970; 94002; 94003; 94150; 94640; 94664; 94760; 97803; 99284; J0712; J7620; S0077